=== PATIENT | male | born 1950 | race Caucasian/White ===

== ENCOUNTER 2020-05-07 08:01 | Outpatient (REF) | payer MEDICARE, OTHER, SELFPAY ==
--- NOTE | 2020-05-07 08:05 | CT_ITS ---
EXAMINATION: CT ABDOMEN AND PELVIS WITH CONTRAST CLINICAL INFORMATION: Flank pain. COMPARISON: Ultrasound AAA 04/02/2014 TECHNIQUE: Multidetector volumetric images were obtained from the superior aspect of the liver through the pubic symphysis following administration 85 mL of Omnipaque 350 intravenous contrast. Sagittal and coronal reformatted images were obtained on the technologist's workstation. Oral contrast: No This CT examination was performed using dose optimization techniques as appropriate, variously including the following: *Automated exposure control *Adjustment of mA and/or kV according to patient size (this includes techniques or standardized protocols for targeted exams where dose is matched to indication/reason for exam; i.e. extremities or head) *Use of iterative reconstruction technique DLP: 306 mGy-cm FINDINGS: LUNG BASES: Minimal atelectatic changes are seen in the left lung base. The heart size is normal. LIVER, GALLBLADDER AND BILIARY TREE: The liver is normal in size, shape and attenuation. No focal hepatic lesion or biliary ductal dilatation is present. The gallbladder is unremarkable with no evidence of radiopaque gallstones, gallbladder wall thickening, or obvious pericholecystic inflammatory changes. PANCREAS: Unremarkable. SPLEEN: Unremarkable. ADRENAL GLANDS: Unremarkable. KIDNEYS AND URETERS: Both kidneys are enlarged secondary to bilateral multiple renal cysts likely polycystic renal disease. Heterogenous appearing cortex secondary to cyst. There are punctate radiopaque densities seen in the upper mid and lower pole right kidney likely small calcifications or tiny stones. Few calcifications are seen in the midpole left kidney. BLADDER: Unremarkable. GASTROINTESTINAL TRACT: There is scattered stool, diverticuli and contrast seen throughout the colon without any significant distention. The small bowel loops are normal caliber. There is nonspecific mild mural thickening sigmoid colon. No pericolic fat stranding seen. No free air or free fluid seen. ABDOMINAL WALL: No significant hernia is appreciated. LYMPH NODES: Normal. VASCULAR: Unremarkable. PELVIC VISCERA: The prostate gland is mildly enlarged. The periprostatic fat planes are preserved.. OSSEOUS STRUCTURES: Degenerative disc changes L4-L5 and L1-L2 disc levels with mild ventral spondylosis and vacuum disc phenomena. No lytic process seen. IMPRESSION: Diffuse enlarged kidneys secondary to multiple bilateral renal cysts most likely polycystic disease or medullary cystic disease. Correlate with previous history and imaging if possible. There are punctate calcifications or tiny calculi seen in both kidneys, but no hydronephrosis is noted. Scattered colonic diverticulosis without diverticulitis. Mild prostate enlargement. Minimal left basilar atelectasis.
[2020-05-08] MEDS: iohexoL 350 MG/ML 100 ML INFUS..BTL IV (11:57)
[2020-05-08] MEDS: Barium Sulfate Oral (Vanilla) 450 ML ORAL.SUSP 900 ML PO (12:04)
== END 2020-05-07 08:02 | disposition home or self-care (01) ==
LOC: HO.CT 08:01
PROVIDERS: Visit Provider Internal Medicine Nephrology
DX: I13.11 Hypertensive heart and chronic kidney disease without heart failure, with stage 5 chronic kidney disease, or end stage renal disease (principal); N18.6 End stage renal disease; Z99.2 Dependence on renal dialysis; N25.81 Secondary hyperparathyroidism of renal origin; N28.1 Cyst of kidney, acquired; Z76.82 Awaiting organ transplant status
CPT/HCPCS: 74177

== ENCOUNTER 2022-10-27 16:22 | Emergency (ER) | payer MEDICARE, OTHER, SELFPAY ==
[2022-10-27 16:30] VITALS: BP 85/53; BP 86/52; PULSE 108; PULSE 95; RESP 16; TEMP 36.9; O2SAT 90; O2SAT 92; BMI 21.4
[2022-10-27 16:48] LABS: MANUAL DIFF FLAG NO
[2022-10-27 16:50] LABS: Basophils Percent Auto 0.4 % (0-2); Eosinophils Absolute Auto 0.1 X10*3/uL (0.0-0.4); Eosinophils Percent Auto 1.6 % (0-4); Hematocrit 26.4 % (42.0-52.0); Hemoglobin 8.7 g/dl (14.0-18.0); Imm Gran Abs Auto 0.02 X10*3/uL (0.00-0.03); Imm Gran Pct Auto 0.3 % (0.0-0.4); Lymphocytes Absolute Auto 0.6 X10*3/uL (1.2-4.9); Lymphocytes Percent Auto 8.7 % (20-40); Mean Corpuscular Hemoglobin 32.1 pg (27.0-33.0); Mean Corpuscular Volume 97.4 fL (80.0-98.0); Monocytes Absolute Auto 0.7 X10*3/uL (0.1-1.2); Monocytes Percent Auto 9.7 % (2-11); Neutrophils Absolute Auto 5.4 x10*3/uL (2.0-8.3); Neutrophils Percent Auto 79.3 % (45-73); Platelet Count 164 X10*3/uL (160-400); Red Blood Count 2.71 X10*6/uL (4.60-5.80); Red Cell Distribution Width 13.4 % (11.0-16.0); White Blood Count 6.8 X10*3/uL (4.8-10.8)
[2022-10-27 17:10] LABS: Troponin-I High Sensitivity 47.8 ng/L (<3.5-35.0)
[2022-10-27 17:19] LABS: Alanine Aminotransferase 21 U/L (0-40); Albumin Level 3.5 g/dL (3.5-5.0); Alkaline Phosphatase 60 U/L (39-117); Anion Gap 17 (12-20); Aspartate Amino Transferase 12 U/L (5-37); Bilirubin Total 0.5 mg/dL (0.0-1.0); Blood Urea Nitrogen 24 mg/dL (9-16); Carbon Dioxide 31 mmol/L (22-29); Chloride 95 mmol/L (96-108); Creatinine Clr Calc Pharmacy 14.1; Estimated Glomerular Filt Rate 13; Glucose Random 181 mg/dL (60-115); Potassium 3.9 mmol/L (3.3-5.1); Sodium 139 mmol/L (135-145); Total Protein 5.5 g/dL (6.5-8.0)
[2022-10-27] MEDS: 0.9 % Sodium Chloride 500 ML 999 ML IVCONT ×3 (17:29→21:38)
--- NOTE | 2022-10-27 17:35 | PC.NURSE ---
CRITICAL CREATININE 4.47. PRIMARY RN AWARE. RESULTS DOCUMENTED.
[2022-10-27 18:48] VITALS: BP 109/59; PULSE 81; RESP 16; O2SAT 98
--- NOTE | 2022-10-27 18:51 | PC.NURSE ---
Second 500ml of ns infusing. Pt continues to deny any symptoms or pain, requesting to leave d/t transportation by 1930.
[2022-10-27 19:45] VITALS: BP 91/47; PULSE 74; RESP 12; TEMP 36.3; O2SAT 97
[2022-10-27 21:30] VITALS: BP 90/51; PULSE 71; RESP 19; TEMP 36.9; O2SAT 97
--- NOTE | 2022-10-27 21:55 | ED.GENADULT ---
HPI - General Adult General Chief complaint: General Medical Stated complaint: hypotension Time Seen by Provider: 10/27/22 16:37 Source: patient Mode of arrival: EMS Limitations: no limitations History of Present Illness HPI narrative: Patient comes to the emergency room from home after completing his normal session of dialysis. Patient states that when he got home, he checked his blood pressure as he usually does. Patient states that he has no symptoms, but it was noted that his blood pressure was in the low 80s. Patient denies chest pain or shortness of breath, no dizziness. Patient's family encouraged him to come to the emergency room to be evaluated. Related Data Allergies Allergy/AdvReac Type Severity Reaction Status Date / Time bupropion [From WELLBUTRIN] AdvReac Unknown CONSTIPATIO Unverified 04/03/20 17:03 N NSAIDS (Non-Steroidal AdvReac Unknown RENAL Unverified 04/03/20 17:03 Anti-Inflamma [NSAIDS (NON-STEROIDAL ANTI-INFLAMMA] Groemdb-[id number] Reductase AdvReac Unknown UNK Unverified 04/03/20 17:03 Inhibitor [ROTTOSL-TFZ-USA REDUCTASE INHIBITOR] Review of Systems Review of Systems: Constitutional : No Weight loss, No Fever, No Chills, No Night Sweats, No Fatigue, No Malaise ENT/Mouth : No Hearing loss, No Ear Pain, No Nasal Congestion, No Sinus Pain, No Hoarseness, No sore throat, No Rhinorrhea, No Swallowing Difficulty Eyes: No Eye Pain, No Swelling, No Redness, No Foreign Body, No Discharge, No Vision Changes Cardiovascular : No Chest Pain, No SOB, No Dyspnea on Exertion, No Orthopnea, No Edema, No Palpitations Respiratory : No Cough, No Sputum, No Wheezing, No Smoke Exposure, No Dyspnea Gastrointestinal : No Nausea, No Vomiting, No Diarrhea, No Constipation, No abdominal Pain, No Hematochezia, No Melena Genitourinary : no irregular bleeding, No Dysuria, No Urinary Frequency, No Hematuria, No Urinary Incontinence, No Urgency, No Flank Pain, No Urinary Flow Changes, No Hesitancy Musculoskeletal : No joint pain, No Myalgias, No Joint Swelling Skin : No Skin Lesions, No rash Neuro : No Weakness, No Numbness, No Paresthesias, No Loss of Consciousness, No Dizziness, No Headache Psych : No Anxiety/Panic, No Depression, No SI/HI/AH/VH, No Social Issues, Heme/Lymph: No Bruising, No Bleeding,No Lymphadenopathy Endocrine : No Polyuria, No Polydipsia, No Temperature Intolerance ON LICENSE OF [facility] Past Medical History Medical History (Updated 10/27/22 @ 22:07 by Maribeth Varela MD) Chronic kidney 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 Social History Social History Advance Directives: No Advance Directives Information Provided: No Physical Exam ED Vital Signs: Vital Signs - 24 hr 10/27/22 16:30 10/27/22 18:48 10/27/22 19:45 Temperature 98.4 F 97.3 F Pulse Rate 95 81 74 Respiratory Rate 16 16 12 Blood Pressure 85/53 L 109/59 L 91/47 L Pulse Oximetry 92 98 97 Oxygen Delivery Method Room Air Room Air Room Air 10/27/22 21:30 Temperature 98.5 F Pulse Rate 71 Respiratory Rate 19 Blood Pressure 90/51 L Pulse Oximetry 97 Oxygen Delivery Method Room Air BMI result Body Mass Index 21.4 Const Other: Appearance: Alert. Oriented X3. No acute distress. Eyes: Pupils equal, round and reactive to light. ENT: Pharynx normal. Neck: Normal inspection. Neck supple. No lymph nodes noted. No crepitus CVS: Normal heart rate and rhythm. Pulses normal. Normal S1 and S2 Respiratory: No respiratory distress. Breath sounds normal. No Wheezing. No rales Abdomen: Soft and nontender. No rigidity. No distention. Skin: Skin warm and dry. Normal skin color. Normal skin turgor. Extremities: No lower extremity edema. No Lacerations. No Rash, on left arm there is dialysis fistula Neuro: Oriented X 3. No motor deficit. No sensory deficit. Moving all extremities. No slurred speech. CN 2 through 12 grossly intact Psych: calm, cooperative, normal affect Course Course Course Narrative: -Dr. Camacho did a bedside ultrasound on the patient, the inferior vena cava is completely collapsed. Patient's hypotension secondary to dialysis, too much fluid was taken out. Patient being rehydrated with boluses of 500 mL -after 3 boluses of normal saline, patient states that he feels completely asymptomatic -patient instructed to resume his dialysis plan as previously scheduled. Medications Administered Discontinued Medications Generic Name Dose Route Start Last Admin Trade Name Freq PRN Reason Stop Dose Admin Sodium Chloride 500 mls @ 999 mls/hr 10/27/22 17:02 10/27/22 18:50 Ns IVCONT 10/27/22 17:32 Infused .Q31M ONE Infusion Sodium Chloride 500 mls @ 999 mls/hr 10/27/22 18:29 10/27/22 19:40 Ns IVCONT 10/27/22 18:59 Infused .Q31M ONE Infusion Sodium Chloride 500 mls @ 999 mls/hr 10/27/22 19:56 10/27/22 21:38 Ns IVCONT 10/27/22 20:26 999 mls/hr .Q31M ONE Administration Medical Decision Making Medical Decision Making MDM Narrative: -hypertension secondary to large amount of fluid taking out during dialysis. Patient was rehydrated slowly. Patient asymptomatic Lab Data 10/27/22 16:40 10/27/22 16:40 Labs: Lab Results 10/27/22 10/27/22 10/27/22 Range/Units 16:40 16:40 16:40 WBC 6.8 (4.8-10.8) X10*3/uL RBC 2.71 L (4.60-5.80) X10*6/uL Hgb 8.7 L (14.0-18.0) g/dl Hct 26.4 L (42.0-52.0) % MCV 97.4 (80.0-98.0) fL MCH 32.1 (27.0-33.0) pg MCHC 33.0 (31.0-36.0) g/dl RDW 13.4 (11.0-16.0) % Plt Count 164 (160-400) X10*3/uL MPV 9.0 L (9.4-12.4) fL Immature Gran % (Auto) 0.3 (0.0-0.4) % Neut % (Auto) 79.3 H (45-73) % Lymph % (Auto) 8.7 L (20-40) % [place] % (Auto) 9.7 (2-11) % Eos % (Auto) 1.6 (0-4) % Baso % (Auto) 0.4 (0-2) % Lymph # (Auto) 0.6 L (1.2-4.9) X10*3/uL [place] # (Auto) 0.7 (0.1-1.2) X10*3/uL Eos # (Auto) 0.1 (0.0-0.4) X10*3/uL Baso # (Auto) 0.0 (0.0-0.2) X10*3/uL Abs Immat Gran (auto) 0.02 (0.00-0.03) X10*3/uL Absolute Neuts (auto) 5.4 (2.0-8.3) x10*3/uL Absolute Nucleated RBC 0.000 (0.0-0.012) X10*3/uL Nucleated RBC % (auto) 0.0 (0.0-0.2) /100WBC Sodium 139 (135-145) mmol/L Potassium 3.9 (3.3-5.1) mmol/L Chloride 95 L (96-108) mmol/L Carbon Dioxide 31 H (22-29) mmol/L Anion Gap 17 (12-20) BUN 24 H (9-16) mg/dL Creatinine 4.47 H* (0.5-1.4) mg/dL Estim Creat Clear Calc 14.1 Estimated GFR 13 Random Glucose 181 H (60-115) mg/dL Calcium 9.0 (8.4-10.2) mg/dL Total Bilirubin 0.5 (0.0-1.0) mg/dL AST 12 (5-37) U/L ALT 21 (0-40) U/L Alkaline Phosphatase 60 (39-117) U/L Troponin I High Sens 47.8 H (<3.5-35.0) ng/L Total Protein 5.5 L (6.5-8.0) g/dL Albumin 3.5 (3.5-5.0) g/dL Discharge Plan Discharge Clinical Impression: Acute hypotension Patient Disposition: Home, Self-Care Instructions: Hypotension (ED) Additional Instructions: Please follow-up with your primary care physician tomorrow. If you have any worsening or new symptoms, please return to the emergency room or call 911
[2022-10-27 22:01] VITALS: BP 105/55; PULSE 71
[2022-10-27 22:20] VITALS: BP 112/62; PULSE 75; RESP 14; O2SAT 96
== END 2022-10-27 22:22 | disposition home or self-care (01) ==
PROVIDERS: Emergency Provider Emergency Medicine
DX: I95.3 Hypotension of hemodialysis (principal); N18.6 End stage renal disease; Z99.2 Dependence on renal dialysis
CPT/HCPCS: 36415; 80053; 84484; 85025; 96360; 96361; 99284

== ENCOUNTER 2023-02-06 07:03 | Emergency (ER) | payer MEDICARE, OTHER, SELFPAY ==
[2023-02-06] VITALS (8 sets, daily range): BP systolic 129–150; BP diastolic 59–90; PULSE 65–72; RESP 12–24; TEMP 36.9–37.4; O2SAT 84–98; BMI 22.7
--- NOTE | ~2023-02-06 | CT_ITS ---
EXAMINATION: CT ANGIOGRAM CHEST CLINICAL INFORMATION: Severe chest pain COMPARISON: Previous chest x-ray from earlier the same day TECHNIQUE: Multiple axial images were obtained through the chest after the administration of 85 mL of Omnipaque 350 intravenous contrast. Extensive vascular post-processing including two-dimensional and three-dimensional reformatted images were created and reviewed on an independent workstation. This CT examination was performed using dose optimization techniques as appropriate, variously including the following: *Automated exposure control *Adjustment of mA and/or kV according to patient size (this includes techniques or standardized protocols for targeted exams where dose is matched to indication/reason for exam; i.e. extremities or head) *Use of iterative reconstruction technique DLP: 499 mGy-cm FINDINGS: Upper normal in size. No aneurysm or dissection. The ascending thoracic aorta measures 4 x 4.2 cm, aortic arch 2.8 cm and descending thoracic aorta 3 cm. No mediastinal hematoma. The heart is enlarged. There is a small pericardial effusion. Mild coronary artery calcification. The pulmonary arteries are enlarged. The main pulmonary artery measures 4.9 cm. Appearance is suggestive of pulmonary artery hypertension. Pulmonary embolism is seen. Great vessel origins are patent. Normal variant, bovine arch. The visualized thyroid gland is normal. No hilar or mediastinal lymphadenopathy. There is dependent atelectasis seen in both lower lobes at the lung bases. The lungs are otherwise clear. There is a very small left pleural effusion. There is no right pleural effusion. No chest wall mass or enlarged axillary lymph nodes. Degenerative changes of the spine and mild scoliosis. CT/CT angio chest aorta IMPRESSION: Upper normal-size thoracic aorta. No aneurysm or dissection. Enlarged pulmonary arteries suggestive of pulmonary artery hypertension. No pulmonary embolism is seen. Enlarged heart and small pericardial effusion. Fleischner guidelines were followed. Severe chest pain
--- NOTE | ~2023-02-06 | XR_ITS ---
EXAMINATION: XR CHEST CLINICAL INFORMATION: Chest pain COMPARISON: None available. TECHNIQUE: Frontal view of the chest was obtained. FINDINGS: No significant abnormality is noted involving the heart, lungs, mediastinum, bony thorax or soft tissues. Surgical clips in the left upper arm/axilla. XR/XR chest 1V IMPRESSION: No evidence for acute disease in the chest.
--- NOTE | ~2023-02-06 | CT_ITS ---
EXAMINATION: CT ANGIOGRAM ABDOMEN AND PELVIS CLINICAL INFORMATION: Pain COMPARISON: Previous CT of the abdomen and pelvis April 2020 TECHNIQUE: Multiple axial images were obtained through the abdomen and pelvis following the administration of 85 mL of Omnipaque 350 intravenous contrast. Images were reviewed on a dedicated 3-D workstation. This CT examination was performed using dose optimization techniques as appropriate, variously including the following: *Automated exposure control *Adjustment of mA and/or kV according to patient size (this includes techniques or standardized protocols for targeted exams where dose is matched to indication/reason for exam; i.e. extremities or head) *Use of iterative reconstruction technique DLP: 499 mGy-cm FINDINGS: There is evidence of atherosclerotic disease. The abdominal aorta is normal in caliber. No aneurysm or dissection. The common, internal and external iliac and common femoral arteries are patent. Both femoral bifurcations are patent. No retroperitoneal hematoma. The celiac axis, SMA and ROSAURA are patent. Both renal arteries appear small. There is is significant plaque/stenosis of the proximal right renal artery. There is a mild focal stenosis at the origin of the left renal artery. The liver is normal. The gallbladder is upper normal in size. No gallstones are seen by CT. There is no intrahepatic biliary duct dilatation. The common bile duct is dilated measuring 1 cm down to the head of the pancreas. The main pancreatic duct is dilated measuring up to 5 to 6 mm in the head of the pancreas. The pancreas is otherwise normal. The spleen is normal. The adrenal glands are normal. Both kidneys appear essentially replaced with cysts. Polycystic kidney disease should be considered. No hydronephrosis. Small bilateral nonobstructing renal stones. The bladder is normal. The prostate gland does not appear enlarged. Small left inguinal hernia containing colon. No evidence of obstruction. Small and large bowel is otherwise normal. The appendix is normal. The stomach is not distended and difficult to evaluate. No ascites or free air. Diverticulosis and mild constipation. No adenopathy. Degenerative changes of the spine and scoliosis. CT/CT angio abdomen pelvis IMPRESSION: No evidence of aneurysm, dissection or retroperitoneal hematoma. Bilateral renal artery stenosis. Probable polycystic kidney disease. Small bilateral renal stones. Constipation and diverticulosis. Small left inguinal hernia containing fat and colon. No evidence of obstruction. Mild dilatation of the common bile duct and main pancreatic duct. This is new or increased from 2019 exam. Follow-up MR with MRCP should be considered to exclude ampullary lesion. Upper normal-size gallbladder. No stone seen by CT. Fleischner guidelines were followed.
--- NOTE | 2023-02-06 07:06 | ECG_ITS ---
Test Reason : CHEST PAIN Blood Pressure : / mmHG Vent. Rate : 067 BPM Atrial Rate : 067 BPM P-R Int : 210 ms QRS Dur : 088 ms QT Int : 434 ms P-R-T Axes : 047 -06 073 degrees QTc Int : 458 ms Sinus rhythm with 1st degree A-V block Minimal voltage criteria for LVH, may be normal variant ( Sokolow-Dominique ) Nonspecific T wave abnormality Abnormal ECG No previous ECGs available Referred By: Gary De La Torre Electronically Signed By:Antony Lee
[2023-02-06 07:27] LABS: Basophils Absolute Auto 0.1 X10*3/uL (0.0-0.2); Basophils Percent Auto 0.5 % (0-2); Eosinophils Percent Auto 0.3 % (0-4); Hematocrit 35.9 % (42.0-52.0); Hemoglobin 12.3 g/dl (14.0-18.0); Imm Gran Abs Auto 0.04 X10*3/uL (0.00-0.03); Imm Gran Pct Auto 0.3 % (0.0-0.4); Lymphocytes Absolute Auto 0.6 X10*3/uL (1.2-4.9); MANUAL DIFF FLAG NO; Mean Corpuscular HGB Conc 34.3 g/dl (31.0-36.0); Mean Corpuscular Hemoglobin 32.2 pg (27.0-33.0); Mean Platelet Volume 9.1 fL (9.4-12.4); Monocytes Absolute Auto 0.8 X10*3/uL (0.1-1.2); Monocytes Percent Auto 6.7 % (2-11); Neutrophils Absolute Auto 10.3 x10*3/uL (2.0-8.3); Neutrophils Percent Auto 87.2 % (45-73); Platelet Count 263 X10*3/uL (160-400); Red Blood Count 3.82 X10*6/uL (4.60-5.80); Red Cell Distribution Width 12.4 % (11.0-16.0); White Blood Count 11.8 X10*3/uL (4.8-10.8)
--- NOTE | 2023-02-06 07:29 | ED.CHESTPAIN ---
HPI - Chest Pain General Chief Complaint: Chest Pain Stated Complaint: Chest Pain Time Seen by Provider: 02/06/23 07:05 Source: patient and EMS Mode of arrival: EMS Limitations: no limitations History of Present Illness HPI narrative: This is a 72-year-old male history of CKD currently on dialysis (M,W,F) presenting to the emergency department for evaluation of substernal nonradiating chest pain with associated shortness of breath chest pain and shortness of breath started suddenly at approximately 01:00, he tells me it awoke him from his sleep. He has been feeling restless, uncomfortable ever since. Shortness of breath is worse with exertion and better at rest chest pain unchanged with rest. Patient denies fevers, chills, nausea, vomiting, abdominal pain, headache, vision changes, dizziness, weakness. Related Data Allergies Allergy/AdvReac Type Severity Reaction Status Date / Time bupropion [From WELLBUTRIN] AdvReac Unknown CONSTIPATIO Verified 02/06/23 07:18 N NSAIDS (Non-Steroidal AdvReac Unknown RENAL Verified 02/06/23 07:18 Anti-Inflamma [NSAIDS (NON-STEROIDAL ANTI-INFLAMMA] Ztibpad-QZZ-TjN Reductase AdvReac Unknown UNK Verified 02/06/23 07:18 Inhibitor [ODDTAQW-FYH-AUJ REDUCTASE INHIBITOR] Review of Systems Review of Systems: Constitutional : No Weight loss, No Fever, No Chills, No Fatigue, No Malaise ENT/Mouth : No sore throat, No Rhinorrhea Eyes: No Eye Pain, No Swelling, No Redness Cardiovascular : + Chest Pain, + SOB, No Dyspnea on Exertion, No Orthopnea, No Edema, No Palpitations Respiratory : No Cough, No Sputum, No Wheezing Gastrointestinal : No Nausea, No Vomiting, No Diarrhea, No Constipation, No abdominal Pain, No Hematochezia, No Melena Genitourinary : No Dysuria, No Urinary Frequency, No Hematuria, Musculoskeletal : No joint pain, No Myalgias, No Joint Swelling Skin : No Skin Lesions, No rash Neuro : No Weakness, No Numbness, No Dizziness, No Headache Psych : No Anxiety/Panic, No Depression All other systems reviewed and are negative Yes all other systems are reviewed and are negative PMFSH Past Medical History Attestation statement: The following information was validated with the patient. Source: old records reviewed and nursing notes reviewed Medical History Chronic kidney 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 Social History Social History Alcohol intake: never Smoked in Last 30 Days: Yes Use of substances other than those prescribed or required for medical reasons: No Advance Directives: Yes Advance Directives Information Provided: Yes Advance Directives on File: No Physical Exam Vital Signs: Vital Signs: Last Vital Signs Temp 98.6 F 02/06/23 15:52 Pulse 71 02/06/23 15:52 Resp 12 02/06/23 15:52 BP 138/68 02/06/23 15:52 Pulse Ox 95 02/06/23 15:52 O2 Del Method Room Air 02/06/23 15:52 BMI result Body Mass Index 22.7 vss Appearance: Alert.? Oriented X3.? No acute distress.? Head: Normocephalic, atraumatic, no step-offs or deformities Eyes: Pupils equal, round and reactive to light.? CVS: Normal heart rate and rhythm.? Pulses normal.? Respiratory: No respiratory distress.? Breath sounds normal.? Abdomen: Soft and nontender.? Skin: Skin warm and dry.? Normal skin color.? Normal skin turgor.? Extremities: No lower extremity edema.? No calf ttp. 5/5 strength to bilateral upper and lower extremities + Left UE fistula Neuro: Oriented X 3.? No motor deficit.? No sensory deficit. CN 2-12 intact Course Reevaluation(s) Reevaluation #1: CBC with slight leukocytosis 11.8, unlikely that this is infectious in origin, patient noted to have a normocytic anemia which is patient's baseline however appears to be slightly more concentrated than usual. Chemistry revealing an elevated anion gap of 21 question dehydration, BUN of 38, creatinine 6.34, patient with history of CKD and on dialysis, this is patient's baseline not in acute finding. Patient's BNP 323, no previous to compare with. Patient's troponin 22.3, EKG nonischemic but revealing a first-degree AV block which patient does not have a history of. Will repeat 2nd troponin, initial troponin could be slightly high secondary to CKD, unlikely that this is ACS. D-Dimer 234, age adjusted dimer VTE unlikely, no need for CTA. Time: 08:31 Reevaluation #2: Chest pain unrelieved by morphine nitro ordered. Time: 09:15 Reevaluation #3: Patient refusing aspirin. Ordered Maalox as patient now is pointing at his epigastric region. Time: 09:48 Additional Reevaluation(s): Patient's 2nd troponin flat, nonischemic EKG. Due to onset of patient's symptoms will obtain a 3rd cardiac enzyme at approximately 12:30. BNP elevated however no evidence of acute fluid overload on x-ray or on exam. Continues to complain of chest pain more morphine ordered. Did discuss this case in depth with my attending who recommends CTA chest, abdomen pelvis due to patient's not improving symptoms, history and physical exam do not appear as though this is a dissection however will obtain dissection study. Ordering Dilaudid for pain control and patient is still in 9/10 pain. 1558 Patient still complaining of pain, there is an order in for Dilaudid. Will wait to see if this improves patient's symptoms. CTA pending. Sign-out will be given to Jillian LIRA 1653: Patient's CTA was negative. Patient continues to be in pain. Will admit for intractable pain. 1703: Attempted to admit the patient however when the hospitalist came to speak with the patient, he stated that he no longer wants to stay and wants to be discharged. Patient cleared for discharge. Medications Administered Discontinued Medications Generic Name Dose Route Start Last Admin Trade Name Freq PRN Reason Stop Dose Admin Al Hydroxide/Mg Hydroxide 30 ml 02/06/23 09:44 02/06/23 09:49 Magnesium Hydrox/Alum Hydrox 30 Ml Oral.Susp PO 02/06/23 09:45 30 ml ONCE ONE Administration Aspirin 324 mg 02/06/23 09:36 02/06/23 09:50 Aspirin 81 Mg Tab.Chew PO 02/06/23 09:37 Not Given ONCE ONE Hydromorphone HCl 0.5 mg 02/06/23 12:20 02/06/23 12:38 Hydromorphone Hcl 0.5 Mg/0.5 Ml Syringe IVPUSH 02/06/23 12:21 0.5 mg ONCE ONE Administration Protocol Iohexol 100 ml 02/06/23 15:08 02/06/23 15:08 Iohexol 350 Mg/Ml 100 Ml Infus..Btl IV 02/06/23 15:09 85 ml ONCE ONE Administration Morphine Sulfate 4 mg 02/06/23 07:29 02/06/23 07:55 Morphine Sulfate 4 Mg/Ml Cartridge IVPUSH 02/06/23 07:30 4 mg ONCE ONE Administration Protocol Nitroglycerin 0.5 inch 02/06/23 08:54 02/06/23 09:09 Nitroglycerin 2 % Oint 1 Gm Packet TRANSDERMA 02/06/23 08:55 0.5 inch ONCE ONE Administration Medical Decision Making Medical Decision Making [facility] Narrative: 0730 72-year-old male presents with sudden-onset chest pain, shortness of breath started at 01:00, present ever since. Physical exam benign. Concerns for possible ACS, PE will rule out dysrhythmia. Unlikely dissection endocarditis, myocarditis. No signs of pneumonia at this time. Plan labs, imaging, pain control. Differential Diagnosis Differential Diagnoses: The differential diagnosis associated with the presentation includes Concerns for possible ACS, PE will rule out dysrhythmia. Unlikely dissection endocarditis, myocarditis. No signs of pneumonia at this time. Admission/Observation Consideration of admission/observation: Escalation of care including admission/observation considered Possible Consult Healthcare Provider Management of the patient was discussed with: Hospitalist Lab Data [facility] Lab Attestation statement: I reviewed the patient's lab results. 02/06/23 07:22 02/06/23 07:22 Labs: Lab Results 02/06/23 02/06/23 02/06/23 Range/Units 07:22 07:22 07:22 WBC 11.8 H (4.8-10.8) X10*3/uL RBC 3.82 L D (4.60-5.80) X10*6/uL Hgb 12.3 L D (14.0-18.0) g/dl Hct 35.9 L D (42.0-52.0) % MCV 94.0 (80.0-98.0) fL MCH 32.2 (27.0-33.0) pg MCHC 34.3 (31.0-36.0) g/dl RDW 12.4 (11.0-16.0) % Plt Count 263 D (160-400) X10*3/uL MPV 9.1 L (9.4-12.4) fL Immature Gran % (Auto) 0.3 (0.0-0.4) % Neut % (Auto) 87.2 H (45-73) % Lymph % (Auto) 5.0 L (20-40) % [place] % (Auto) 6.7 (2-11) % Eos % (Auto) 0.3 (0-4) % Baso % (Auto) 0.5 (0-2) % Lymph # (Auto) 0.6 L (1.2-4.9) X10*3/uL [place] # (Auto) 0.8 (0.1-1.2) X10*3/uL Eos # (Auto) 0.0 (0.0-0.4) X10*3/uL Baso # (Auto) 0.1 (0.0-0.2) X10*3/uL Abs Immat Gran (auto) 0.04 H (0.00-0.03) X10*3/uL Absolute Neuts (auto) 10.3 H (2.0-8.3) x10*3/uL Absolute Nucleated RBC 0.000 (0.0-0.012) X10*3/uL Nucleated RBC % (auto) 0.0 (0.0-0.2) /100WBC D-Dimer High Sensitivty NG/ML Sodium 135 (135-145) mmol/L Potassium 4.5 (3.3-5.1) mmol/L Chloride 89 L (96-108) mmol/L Carbon Dioxide 30 H (22-29) mmol/L Anion Gap 21 H (12-20) BUN 38 H (9-16) mg/dL Creatinine 6.34 H* (0.5-1.4) mg/dL Estim Creat Clear Calc 10.8 Estimated GFR 9 Random Glucose 107 (60-115) mg/dL Lactic Acid (0.5-2.0) mmol/L Calcium 9.5 (8.4-10.2) mg/dL Magnesium 2.5 (1.6-2.6) mg/dL Total Bilirubin 0.4 (0.0-1.0) mg/dL AST 17 (5-37) U/L ALT 23 (0-40) U/L Alkaline Phosphatase 75 (39-117) U/L Troponin I High Sens 22.3 D (<3.5-35.0) ng/L B-Natriuretic Peptide (<100) pg/mL Total Protein 7.0 (6.5-8.0) g/dL Albumin 4.2 (3.5-5.0) g/dL Lipase 59 (8-78) U/L 02/06/23 02/06/23 02/06/23 Range/Units 07:22 07:47 09:05 WBC (4.8-10.8) X10*3/uL RBC (4.60-5.80) X10*6/uL Hgb (14.0-18.0) g/dl Hct (42.0-52.0) % MCV (80.0-98.0) fL MCH (27.0-33.0) pg MCHC (31.0-36.0) g/dl RDW (11.0-16.0) % Plt Count (160-400) X10*3/uL MPV (9.4-12.4) fL Immature Gran % (Auto) (0.0-0.4) % Neut % (Auto) (45-73) % Lymph % (Auto) (20-40) % [place] % (Auto) (2-11) % Eos % (Auto) (0-4) % Baso % (Auto) (0-2) % Lymph # (Auto) (1.2-4.9) X10*3/uL [place] # (Auto) (0.1-1.2) X10*3/uL Eos # (Auto) (0.0-0.4) X10*3/uL Baso # (Auto) (0.0-0.2) X10*3/uL Abs Immat Gran (auto) (0.00-0.03) X10*3/uL Absolute Neuts (auto) (2.0-8.3) x10*3/uL Absolute Nucleated RBC (0.0-0.012) X10*3/uL Nucleated RBC % (auto) (0.0-0.2) /100WBC D-Dimer High Sensitivty 234 NG/ML Sodium (135-145) mmol/L Potassium (3.3-5.1) mmol/L Chloride (96-108) mmol/L Carbon Dioxide (22-29) mmol/L Anion Gap (12-20) BUN (9-16) mg/dL Creatinine (0.5-1.4) mg/dL Estim Creat Clear Calc Estimated GFR Random Glucose (60-115) mg/dL Lactic Acid 0.9 (0.5-2.0) mmol/L Calcium (8.4-10.2) mg/dL Magnesium (1.6-2.6) mg/dL Total Bilirubin (0.0-1.0) mg/dL AST (5-37) U/L ALT (0-40) U/L Alkaline Phosphatase (39-117) U/L Troponin I High Sens (<3.5-35.0) ng/L B-Natriuretic Peptide 322 H (<100) pg/mL Total Protein (6.5-8.0) g/dL Albumin (3.5-5.0) g/dL Lipase (8-78) U/L 02/06/23 02/06/23 Range/Units 10:31 13:16 WBC (4.8-10.8) X10*3/uL RBC (4.60-5.80) X10*6/uL Hgb (14.0-18.0) g/dl Hct (42.0-52.0) % MCV (80.0-98.0) fL MCH (27.0-33.0) pg MCHC (31.0-36.0) g/dl RDW (11.0-16.0) % Plt Count (160-400) X10*3/uL MPV (9.4-12.4) fL Immature Gran % (Auto) (0.0-0.4) % Neut % (Auto) (45-73) % Lymph % (Auto) (20-40) % [place] % (Auto) (2-11) % Eos % (Auto) (0-4) % Baso % (Auto) (0-2) % Lymph # (Auto) (1.2-4.9) X10*3/uL [place] # (Auto) (0.1-1.2) X10*3/uL Eos # (Auto) (0.0-0.4) X10*3/uL Baso # (Auto) (0.0-0.2) X10*3/uL Abs Immat Gran (auto) (0.00-0.03) X10*3/uL Absolute Neuts (auto) (2.0-8.3) x10*3/uL Absolute Nucleated RBC (0.0-0.012) X10*3/uL Nucleated RBC % (auto) (0.0-0.2) /100WBC D-Dimer High Sensitivty NG/ML Sodium (135-145) mmol/L Potassium (3.3-5.1) mmol/L Chloride (96-108) mmol/L Carbon Dioxide (22-29) mmol/L Anion Gap (12-20) BUN (9-16) mg/dL Creatinine (0.5-1.4) mg/dL Estim Creat Clear Calc Estimated GFR Random Glucose (60-115) mg/dL Lactic Acid (0.5-2.0) mmol/L Calcium (8.4-10.2) mg/dL Magnesium (1.6-2.6) mg/dL Total Bilirubin (0.0-1.0) mg/dL AST (5-37) U/L ALT (0-40) U/L Alkaline Phosphatase (39-117) U/L Troponin I High Sens 21.9 22.3 (<3.5-35.0) ng/L B-Natriuretic Peptide (<100) pg/mL Total Protein (6.5-8.0) g/dL Albumin (3.5-5.0) g/dL Lipase (8-78) U/L Independent Interpretation I performed an independent interpretation of an: EKG (Ventricular rate of 67, VT prolongued, QRS normal, QT/QTC normal. EKG with first-degree AV block, and LVH. No ST elevations or inversions concerning for ischemia) and Plain X-Ray (XR/XR chest 1V IMPRESSION: No evidence for acute disease in the chest. ) Radiology Impression Discussion of test interpretation with radiology: I have reviewed the radiologist's reading. External Record Review External record reviewed: Inpatient record and Outpatient record Chronic Conditions Patient?s care impacted by: Other (CKD) Core Measures AMI core measures followed: Yes Measure exclusions: not indicated Critical Care Time Critical Care Time Critical Care Time: No Discharge Plan Discharge Clinical Impression: Chest pain, CKD (chronic kidney disease) Instructions: Chest Pain (ED) Additional Instructions: Take your medications as prescribed. If you were prescribed antibiotics today, it is important that you take your medication to their entirety, do not skip any doses, do not finish them early. Follow-up with your primary care provider this week. Return to the emergency department with new or worsening symptoms. Such as fevers, chills, chest pain, shortness of breath, nausea, vomiting, dizziness, headache, vision changes, lethargy In case of emergency call 911 Follow-up with cardiology. Referrals: [facility] [place] Cardiovascular Services [Provider Group] - 2 days Gerald Davis MD [Primary Care Provider] - 2 days
[2023-02-06 07:47] LABS: Alanine Aminotransferase 23 U/L (0-40); Albumin Level 4.2 g/dL (3.5-5.0); Alkaline Phosphatase 75 U/L (39-117); Anion Gap 21 (12-20); Aspartate Amino Transferase 17 U/L (5-37); Bilirubin Total 0.4 mg/dL (0.0-1.0); Blood Urea Nitrogen 38 mg/dL (9-16); Calcium 9.5 mg/dL (8.4-10.2); Carbon Dioxide 30 mmol/L (22-29); Chloride 89 mmol/L (96-108); Creatinine Clr Calc Pharmacy 10.8; Estimated Glomerular Filt Rate 9; Glucose Random 107 mg/dL (60-115); Magnesium 2.5 mg/dL (1.6-2.6); Potassium 4.5 mmol/L (3.3-5.1); Sodium 135 mmol/L (135-145)
[2023-02-06 07:51] LABS: Troponin-I High Sensitivity 22.3 ng/L (<3.5-35.0)
[2023-02-06 07:52] LABS: B Type Natriuretic Peptide 322 pg/mL (<100)
[2023-02-06] MEDS: Morphine Sulfate 4 MG/ML CARTRIDGE IVPUSH (07:55)
[2023-02-06 07:58] LABS: D Dimer High Sensitivity 234 NG/ML
[2023-02-06] MEDS: Nitroglycerin 2 % Oint 1 GM Packet 0.5 INCH TRANSDERMA (09:09)
[2023-02-06 09:22] LABS: Lactic Acid 0.9 mmol/L (0.5-2.0)
--- NOTE | 2023-02-06 09:33 | ECG_ITS ---
Test Reason : CHEST PAIN Blood Pressure : / mmHG Vent. Rate : 061 BPM Atrial Rate : 061 BPM P-R Int : 214 ms QRS Dur : 094 ms QT Int : 440 ms P-R-T Axes : 049 -10 071 degrees QTc Int : 442 ms Sinus rhythm with 1st degree A-V block Nonspecific T wave abnormality Abnormal ECG When compared with ECG of 06-FEB-2023 07:14, No significant change was found Referred By: Gary De La Torre Electronically Signed By:KEITH VILLALOBOS MD
[2023-02-06] MEDS: Magnesium Hydrox/Alum Hydrox 30 ML ORAL.SUSP PO (09:49)
[2023-02-06 10:26] LABS: Lipase 59 U/L (8-78)
[2023-02-06 10:57] LABS: Troponin-I High Sensitivity 21.9 ng/L (<3.5-35.0)
[2023-02-06] MEDS: HYDROmorphone HCl 0.5 MG/0.5 ML SYRINGE IVPUSH (12:38)
[2023-02-06 13:43] LABS: Troponin-I High Sensitivity 22.3 ng/L (<3.5-35.0)
[2023-02-06] MEDS: iohexoL 350 MG/ML 100 ML INFUS..BTL IV (15:08)
== END 2023-02-06 17:25 | disposition home or self-care (01) ==
PROVIDERS: Physician Assistant; Emergency Provider Emergency Medicine Emergency Medical Services; PCP Family Medicine
DX: R07.9 Chest pain, unspecified (principal); R10.13 Epigastric pain; R06.02 Shortness of breath; N18.6 End stage renal disease; Z99.2 Dependence on renal dialysis
CPT/HCPCS: 36415; 71045; 71275; 74174; 80053; 83605; 83690; 83735; 83880; 84484; 85025; 85379; 87040; 93005; 96374; 96375; 99284; 99285; J1170; J2270; Q9967

== ENCOUNTER → 2023-02-06 07:06 | Outpatient (BNV) | payer MEDICARE, OTHER, SELFPAY | PROVIDERS: Emergency Provider Emergency Medicine Emergency Medical Services; PCP Family Medicine; Visit Provider Internal Medicine Cardiovascular Disease | DX: R07.9 Chest pain, unspecified (principal) | CPT/HCPCS: 93010 ==

== ENCOUNTER 2023-02-28 16:29 | Inpatient (IN) | payer MEDICARE, OTHER, SELFPAY ==
--- NOTE | ~2023-02-28 | XR_ITS ---
EXAMINATION: XR CHEST CLINICAL INFORMATION: Shortness of breath COMPARISON: Chest radiograph 02/06/[address] angiogram chest 02/06/2023 TECHNIQUE: Frontal view of the chest was obtained. FINDINGS: Mild cardiomegaly is again seen. There is increased opacity seen at the left lung base with obscuration of the left hemidiaphragm consistent with infiltrate/atelectasis/pleural effusion. The right lung is clear. No large right pleural effusion is seen. No gross CHF. Degenerative changes are present in the spine with scoliosis convex to the right. XR/XR chest 1V IMPRESSION: Cardiomegaly with left lower lobe infiltrate/atelectasis/pleural effusion.
--- NOTE | ~2023-02-28 | CT_ITS ---
EXAMINATION: CT ABDOMEN AND PELVIS WITHOUT CONTRAST CLINICAL INFORMATION: Abdominal pain. COMPARISON: CT of abdomen and pelvis from 02/06/2023. TECHNIQUE: Multidetector volumetric imaging was performed from the superior aspect of the liver through the pubic symphysis. Sagittal and coronal reformatted images were obtained on the technologist's workstation. This CT examination was performed using dose optimization techniques as appropriate, variously including the following: *Automated exposure control *Adjustment of mA and/or kV according to patient size (this includes techniques or standardized protocols for targeted exams where dose is matched to indication/reason for exam; i.e. extremities or head) *Use of iterative reconstruction technique DLP: 487 mGy-cm FINDINGS: LUNG BASES: The [id number] pericardial effusion has slightly increased compared to 02/06/2023. Small pleural effusions and bibasilar atelectasis are present. LIVER: Liver has normal parenchymal attenuation. No acute abnormality. GALLBLADDER AND BILIARY TREE: Gallbladder is without radiopaque stones, wall thickening or pericholecystic fluid. No dilated bile ducts. PANCREAS: Pancreatic duct measures up to 4-5 mm diameter. The ductal dilatation is slightly decreased compared to 02/06/2023. Otherwise, pancreas is unremarkable. No pancreatic edema or peripancreatic fluid. SPLEEN: Normal. ADRENAL GLANDS: Normal. KIDNEYS AND URETERS: Polycystic renal disease. Some of the renal cysts are hyperdense on this noncontrast CT imaging and are not significantly changed in attenuation compared to contrast-enhanced images from 02/06/2023. This is compatible with presence of a few hyperdense proteinaceous cysts. No renal imaging follow-up recommended. Scattered parenchymal calcifications are present within each kidney. Difficult to exclude any small calyceal stones. No hydroureteronephrosis. BLADDER: Normal. No calculi or wall thickening. BOWEL AND PERITONEUM: Gastrointestinal tract is not optimally evaluated on this noncontrast examination. The stomach is underdistended. No dilated bowel loops. No focal bowel wall thickening, mesenteric fat stranding or free fluid. There are diverticula of the colon without evidence of diverticulitis. ABDOMINAL WALL: No new findings within the abdominal wall. Again noted is a small left inguinal hernia that contains fat and a short segment of unobstructed bowel. VASCULATURE: Atherosclerotic calcification of the abdominal aorta and iliac arteries without aneurysm. No retroperitoneal hematoma. LYMPH NODES: No pathologic sized lymph nodes in the abdomen or pelvis. No inguinal lymphadenopathy. PELVIC VISCERA: Unremarkable. MUSCULOSKELETAL: There is chondrocalcinosis and rotatory levoscoliosis of the lower thoracic and lumbar spine. There is lumbarization of S1. Degenerative disc space narrowing is predominantly noted at L2-L3 and L5-S1. No suspicious bone lesions. There is chondrocalcinosis at the hips and pubic symphysis. CT/CT abdomen pelvis wo IV con IMPRESSION: * No acute imaging abnormalities in the abdomen or pelvis compared to 02/06/2023. * Persistent (and increased) pericardial effusion and new small bilateral pleural effusions with bibasilar atelectasis. * Polycystic renal disease. * Colonic diverticulosis without evidence of diverticulitis. * Small left inguinal hernia contains fat and short segment of bowel. No bowel obstruction. * Again noted is mild dilatation of the pancreatic duct, significance uncertain. There is no overt pancreatic head mass or ampullary lesion seen on this limited noncontrast exam, nor on the prior contrast-enhanced images from 02/06/2023.
[2023-02-28 16:34] VITALS: BP 135/85; PULSE 150; O2SAT 97
[2023-02-28 16:37] VITALS: BP 141/70; PULSE 144; RESP 20; TEMP 37.9; O2SAT 90; BMI 22.2
--- NOTE | 2023-02-28 16:37 | ED_ITS ---
HPI - General Adult General Chief complaint: Fever Stated complaint: feel un-well Time Seen by Provider: 02/28/23 16:36 Source: patient and EMS Mode of arrival: EMS History of Present Illness HPI narrative: This is a 73-year-old male, dialysis dependent who is brought in by EMS for complaints of feeling unwell, he has undergone dialysis today and has typical treatment is Tuesday/Tuesday/Tuesday. Patient states that he is had subjective fevers with nausea but denies any diarrhea or shortness of breath or chest pain/palpitations. Related Data Home Medications Medication Instructions Recorded Confirmed ascorbic acid (vitamin C) 500 mg 500 mg PO DAILY 02/28/23 02/28/23 tablet clonazepam 1 mg tablet 1 mg PO TID 02/28/23 02/28/23 cyanocobalamin (vitamin B-12) 1,000 mcg PO DAILY 02/28/23 02/28/23 1,000 mcg tablet ergocalciferol (vitamin D2) 1,250 1,250 mcg PO QMONTH 02/28/23 02/28/23 mcg (50,000 unit) capsule furosemide 80 mg tablet 80 mg PO SUTUTHSA 02/28/23 02/28/23 lamotrigine 25 mg tablet 75 mg PO QAM 02/28/23 02/28/23 lisinopril 20 mg tablet 20 mg PO DAILY 02/28/23 02/28/23 oxcarbazepine 600 mg tablet 600 mg PO BID 02/28/23 02/28/23 prochlorperazine maleate 5 mg 5 mg PO BID 02/28/23 02/28/23 tablet sodium polystyrene sulfonate 15 g PO SUTUTHSA 02/28/23 02/28/23 trazodone 50 mg tablet 50 mg PO BEDTIME 02/28/23 02/28/23 Allergies Allergy/AdvReac Type Severity Reaction Status Date / Time bupropion [From WELLBUTRIN] AdvReac Unknown CONSTIPATIO Verified 02/06/23 07:18 N NSAIDS (Non-Steroidal AdvReac Unknown RENAL Verified 02/06/23 07:18 Anti-Inflamma [NSAIDS (NON-STEROIDAL ANTI-INFLAMMA] [id number] Reductase AdvReac Unknown UNK Verified 02/06/23 07:18 Inhibitor [[id number] REDUCTASE INHIBITOR] Review of Systems Review of Systems: Pertinent positives and negatives as stated in HPI PMFSH Past Medical History Source: nursing notes reviewed Medical History Chronic kidney 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 Social History Social History Alcohol intake: never Smoked in Last 30 Days: Yes Use of substances other than those prescribed or required for medical reasons: No Advance Directives: No Advance Directives Information Provided: Yes Physical Exam ED Vital Signs: Vital Signs - 24 hr 02/28/23 16:37 02/28/23 18:10 02/28/23 18:58 Temperature 100.3 F 100.6 F H 98.4 F Pulse Rate 144 H 120 H 118 H Respiratory Rate 20 26 H 17 Blood Pressure 141/70 H 130/70 109/60 Pulse Oximetry 90 L 96 91 L Oxygen Delivery Method Room Air Room Air Nasal Cannula Oxygen Flow Rate 2 02/28/23 19:58 Temperature 99.4 F Pulse Rate 121 H Respiratory Rate 17 Blood Pressure 123/75 Pulse Oximetry 93 Oxygen Delivery Method Nasal Cannula Oxygen Flow Rate 2 BMI result Body Mass Index 22.2 VITAL SIGNS: Reviewed. GENERAL: Well developed, well nourished, in no acute distress. HEAD: Normocephalic/atraumatic EYES: PERRLA, EOMI EARS: Ext canals without abnormality NOSE: Nares patent bilateral OROPHARYNX: no oral lesions noted, posterior pharynx clear, dry mucosa NECK: Supple, no adenopathy LUNGS: Bibasilar rales, mild tachypnea otherwise no expiratory wheeze or crackles noted SpO2<96> CARDIOVASCULAR: Regular rate and rhythm without noted murmurs, no JVD or lower extremity edema. ABDOMEN: Soft, non-tender, non-distended with bowel sounds. MUSCULOSKELETAL: No tenderness, deformities, or effusions noted on gross inspection. EXTREMITIES: No cyanosis, clubbing or edema. LUE: AV fistula with good thrill and bruit SKIN: Inspection of the skin reveals no rashes, tactile fever NEUROLOGIC: Alert and oriented x 4. Strength and sensation to light touch were grossly intact x 4. Medications Administered Discontinued Medications Generic Name Dose Route Start Last Admin Trade Name Freq PRN Reason Stop Dose Admin Acetaminophen 975 mg 02/28/23 16:44 02/28/23 16:58 Acetaminophen 325 Mg Tablet PO 02/28/23 16:45 975 mg ONCE ONE Administration Furosemide 40 mg 02/28/23 18:19 02/28/23 18:35 Furosemide 40 Mg/4 Ml Vial IVPUSH 02/28/23 18:20 40 mg STAT STA Administration Protocol Ceftriaxone Sodium 1 gm/ 50 mls @ 100 mls/hr 02/28/23 18:19 02/28/23 18:35 Sodium Chloride IV 02/28/23 18:48 100 mls/hr ONCE ONE Administration Medical Decision Making Medical Decision Making [facility] Narrative: 1646: 73-year-old male with history and clinical presentation, DDX: Pneumonia, intra-abdominal infection, pulmonary edema, viral syndrome, UTI. I reviewed all investigations and my interpretation is that patient has left lower lobe pneumonia with pleural effusion which is likely contributed to his sepsis and hypoxemia. Hematologic indices although not demonstrating a leukocytosis there is a left shift with normocytic anemia and no evidence of thr ombocytopenia. Coagulation studies with INR-1.7 and chemistry studies are consistent with chronic reliance on dialysis. I did have plans to admit and treat this patient for his pneumonia and hypoxia, however he is adamant about going home and reports that he understands all the risks and benefits, patient is alert and oriented and is discharged on antibiotics and strict instructions to follow-up with his primary care doctor. Chest x-ray shows left lower lobe pneumonia with pleural effusion. Review of CT scan demonstrates pericardial effusion otherwise my interpretation is in agreement with radiology's impression. Inpatient hospitalist was agreeable for admission, however patient is adamant about being discharged and does not care about his fast heart rate or the fact that he has large pneumonia. On re-evaluation, patient had to be placed back on oxygen due to SpO2-88%. I explained to the patient that he had a significant pneumonia with fluid in the left lung and that I was concerned that his heart was still going very fast and that he was not oxygenating well. Patient promptly stated okay I will stay. I discussed with inpatient hospitalist who accepts admission. Differential Diagnosis Differential Diagnoses: The differential diagnosis associated with the presentation includes Please see the discussion above Admission/Observation Consideration of admission/observation: Escalation of care including admission/observation considered Please see the discussion above Consult Healthcare Provider Management of the patient was discussed with: Hospitalist Please see the discussion above Lab Data [facility] Lab Attestation statement: I reviewed the patient's lab results. Please see the discussion above 02/28/23 16:57 02/28/23 16:57 Labs: Lab Results 02/28/23 02/28/23 02/28/23 Range/Units 16:56 16:57 16:57 WBC 10.5 (4.8-10.8) X10*3/uL RBC 3.32 L (4.60-5.80) X10*6/uL Hgb 10.6 L (14.0-18.0) g/dl Hct 31.9 L (42.0-52.0) % MCV 96.1 (80.0-98.0) fL MCH 31.9 (27.0-33.0) pg MCHC 33.2 (31.0-36.0) g/dl RDW 12.9 (11.0-16.0) % Plt Count 362 D (160-400) X10*3/uL MPV 9.0 L (9.4-12.4) fL Immature Gran % (Auto) 0.4 (0.0-0.4) % Neut % (Auto) 86.8 H (45-73) % Lymph % (Auto) 4.4 L (20-40) % [place] % (Auto) 7.0 (2-11) % Eos % (Auto) 0.8 (0-4) % Baso % (Auto) 0.6 (0-2) % Lymph # (Auto) 0.5 L (1.2-4.9) X10*3/uL [place] # (Auto) 0.7 (0.1-1.2) X10*3/uL Eos # (Auto) 0.1 (0.0-0.4) X10*3/uL Baso # (Auto) 0.1 (0.0-0.2) X10*3/uL Abs Immat Gran (auto) 0.04 H (0.00-0.03) X10*3/uL Absolute Neuts (auto) 9.1 H (2.0-8.3) x10*3/uL Absolute Nucleated RBC 0.000 (0.0-0.012) X10*3/uL Nucleated RBC % (auto) 0.0 (0.0-0.2) /100WBC PT 20.2 H (11.1-13.3) SEC INR 1.7 H (0.9-1.1) Sodium 136 (135-145) mmol/L Potassium 4.5 (3.3-5.1) mmol/L Chloride 91 L (96-108) mmol/L Carbon Dioxide 31 H (22-29) mmol/L Anion Gap 19 (12-20) BUN 19 H (9-16) mg/dL Creatinine 4.22 H* (0.5-1.4) mg/dL Estim Creat Clear Calc 15.6 Estimated GFR 14 Random Glucose 116 H (60-115) mg/dL Lactic Acid (0.5-2.0) mmol/L Calcium 10.1 D (8.4-10.2) mg/dL Total Bilirubin 0.6 (0.0-1.0) mg/dL AST 29 (5-37) U/L ALT 41 H (0-40) U/L Alkaline Phosphatase 110 (39-117) U/L B-Natriuretic Peptide (<100) pg/mL Total Protein 7.3 (6.5-8.0) g/dL Albumin 4.0 (3.5-5.0) g/dL Urine Color Urine Appearance Urine pH (5.0-9.0) Ur Specific [place] (1.005-1.025) Urine Protein (Neg-Trace) mg/dL Urine Glucose (UA) (Negative) mg/dL Urine Ketones (Negative) mg/dL Urine Blood (Negative) Urine Nitrite (Negative) Ur Leukocyte Esterase (Negative) Urine RBC (0-2) /HPF Urine WBC (0-5) /HPF Ur Squamous Epith Cells (0-2) /HPF Urine Bacteria (None Seen) Hyaline Casts (0-2) /LPF Ethyl Alcohol < 10 mg/dL Influenza Type A (PCR) (Negative) Influenza Type B (PCR) (Negative) RSV RNA Qual (PCR) (Negative) SARS-CoV-2 RNA (RT-PCR) (Negative) 02/28/23 02/28/23 02/28/23 Range/Units 16:57 16:57 16:57 WBC (4.8-10.8) X10*3/uL RBC (4.60-5.80) X10*6/uL Hgb (14.0-18.0) g/dl Hct (42.0-52.0) % MCV (80.0-98.0) fL MCH (27.0-33.0) pg MCHC (31.0-36.0) g/dl RDW (11.0-16.0) % Plt Count (160-400) X10*3/uL MPV (9.4-12.4) fL Immature Gran % (Auto) (0.0-0.4) % Neut % (Auto) (45-73) % Lymph % (Auto) (20-40) % [place] % (Auto) (2-11) % Eos % (Auto) (0-4) % Baso % (Auto) (0-2) % Lymph # (Auto) (1.2-4.9) X10*3/uL [place] # (Auto) (0.1-1.2) X10*3/uL Eos # (Auto) (0.0-0.4) X10*3/uL Baso # (Auto) (0.0-0.2) X10*3/uL Abs Immat Gran (auto) (0.00-0.03) X10*3/uL Absolute Neuts (auto) (2.0-8.3) x10*3/uL Absolute Nucleated RBC (0.0-0.012) X10*3/uL Nucleated RBC % (auto) (0.0-0.2) /100WBC PT (11.1-13.3) SEC INR (0.9-1.1) Sodium (135-145) mmol/L Potassium (3.3-5.1) mmol/L Chloride (96-108) mmol/L Carbon Dioxide (22-29) mmol/L Anion Gap (12-20) BUN (9-16) mg/dL Creatinine (0.5-1.4) mg/dL Estim Creat Clear Calc Estimated GFR Random Glucose (60-115) mg/dL Lactic Acid 1.1 (0.5-2.0) mmol/L Calcium (8.4-10.2) mg/dL Total Bilirubin (0.0-1.0) mg/dL AST (5-37) U/L ALT (0-40) U/L Alkaline Phosphatase (39-117) U/L B-Natriuretic Peptide 860 H (<100) pg/mL Total Protein (6.5-8.0) g/dL Albumin (3.5-5.0) g/dL Urine Color Urine Appearance Urine pH (5.0-9.0) Ur Specific [place] (1.005-1.025) Urine Protein (Neg-Trace) mg/dL Urine Glucose (UA) (Negative) mg/dL Urine Ketones (Negative) mg/dL Urine Blood (Negative) Urine Nitrite (Negative) Ur Leukocyte Esterase (Negative) Urine RBC (0-2) /HPF Urine WBC (0-5) /HPF Ur Squamous Epith Cells (0-2) /HPF Urine Bacteria (None Seen) Hyaline Casts (0-2) /LPF Ethyl Alcohol mg/dL Influenza Type A (PCR) NEGATIVE (Negative) Influenza Type B (PCR) NEGATIVE (Negative) RSV RNA Qual (PCR) NEGATIVE (Negative) SARS-CoV-2 RNA (RT-PCR) NEGATIVE (Negative) 02/28/23 Range/Units 18:20 WBC (4.8-10.8) X10*3/uL RBC (4.60-5.80) X10*6/uL Hgb (14.0-18.0) g/dl Hct (42.0-52.0) % MCV (80.0-98.0) fL MCH (27.0-33.0) pg MCHC (31.0-36.0) g/dl RDW (11.0-16.0) % Plt Count (160-400) X10*3/uL MPV (9.4-12.4) fL Immature Gran % (Auto) (0.0-0.4) % Neut % (Auto) (45-73) % Lymph % (Auto) (20-40) % [place] % (Auto) (2-11) % Eos % (Auto) (0-4) % Baso % (Auto) (0-2) % Lymph # (Auto) (1.2-4.9) X10*3/uL [place] # (Auto) (0.1-1.2) X10*3/uL Eos # (Auto) (0.0-0.4) X10*3/uL Baso # (Auto) (0.0-0.2) X10*3/uL Abs Immat Gran (auto) (0.00-0.03) X10*3/uL Absolute Neuts (auto) (2.0-8.3) x10*3/uL Absolute Nucleated RBC (0.0-0.012) X10*3/uL Nucleated RBC % (auto) (0.0-0.2) /100WBC PT (11.1-13.3) SEC INR (0.9-1.1) Sodium (135-145) mmol/L Potassium (3.3-5.1) mmol/L Chloride (96-108) mmol/L Carbon Dioxide (22-29) mmol/L Anion Gap (12-20) BUN (9-16) mg/dL Creatinine (0.5-1.4) mg/dL Estim Creat Clear Calc Estimated GFR Random Glucose (60-115) mg/dL Lactic Acid (0.5-2.0) mmol/L Calcium (8.4-10.2) mg/dL Total Bilirubin (0.0-1.0) mg/dL AST (5-37) U/L ALT (0-40) U/L Alkaline Phosphatase (39-117) U/L B-Natriuretic Peptide (<100) pg/mL Total Protein (6.5-8.0) g/dL Albumin (3.5-5.0) g/dL Urine Color Yellow Urine Appearance Clear Urine pH >= 9.0 (5.0-9.0) Ur Specific [place] 1.010 (1.005-1.025) Urine Protein 100 (2+) H (Neg-Trace) mg/dL Urine Glucose (UA) Negative (Negative) mg/dL Urine Ketones Negative (Negative) mg/dL Urine Blood Negative (Negative) Urine Nitrite Negative (Negative) Ur Leukocyte Esterase Negative (Negative) Urine RBC 0-2 (0-2) /HPF Urine WBC 0-5 (0-5) /HPF Ur Squamous Epith Cells 0-2 (0-2) /HPF Urine Bacteria None Seen (None Seen) Hyaline Casts 0-2 (0-2) /LPF Ethyl Alcohol mg/dL Influenza Type A (PCR) (Negative) Influenza Type B (PCR) (Negative) RSV RNA Qual (PCR) (Negative) SARS-CoV-2 RNA (RT-PCR) (Negative) Independent Interpretation I performed an independent interpretation of an: EKG Interpretation: AFib with variable AV block, HR-137, no STEMI but noted ST abnormalities, QRS/QTC is within normal limits. Radiology Impression Discussion of test interpretation with radiology: I have reviewed the radiologist's reading. Radiologist Impression: Please see the discussion above External Record Review External record reviewed: Outpatient record, Prior outpatient labs and Prior outpatient radiology Chronic Conditions Patient?s care impacted by: Hypertension and Other ESRD Critical Care Time Critical Care Time Critical Care Time: Yes Total Critical Care Time: 45 Attestation: I personally attest to this time spent taking care of the patient. Discharge Plan Discharge Clinical Impression: Hypoxemia, Sepsis, Pneumonia, Pleural effusion, left, Effusion, pericardium Patient Disposition: Admitted As Inpatient
--- NOTE | 2023-02-28 16:38 | ECG_ITS ---
Test Reason : tachycardia Blood Pressure : / mmHG Vent. Rate : 137 BPM Atrial Rate : 242 BPM P-R Int : 000 ms QRS Dur : 086 ms QT Int : 250 ms P-R-T Axes : 000 000 126 degrees QTc Int : 377 ms Atrial flutter with variable A-V block Septal infarct , age undetermined ST & T wave abnormality, consider lateral ischemia Abnormal ECG When compared with ECG of 06-FEB-2023 09:36, Atrial flutter has replaced Sinus rhythm Vent. rate has increased BY [address] now depressed in Lateral leads Inverted T waves have replaced nonspecific T wave abnormality in Lateral leads Referred By: Deloris Maurice Electronically Signed By:JONNY CARDENAS
[2023-02-28] MEDS: Acetaminophen 325 MG TABLET 975 MG PO (16:58)
[2023-02-28 17:04] LABS: MANUAL DIFF FLAG NO
[2023-02-28 17:08] LABS: Basophils Absolute Auto 0.1 X10*3/uL (0.0-0.2); Basophils Percent Auto 0.6 % (0-2); Eosinophils Absolute Auto 0.1 X10*3/uL (0.0-0.4); Eosinophils Percent Auto 0.8 % (0-4); Hematocrit 31.9 % (42.0-52.0); Hemoglobin 10.6 g/dl (14.0-18.0); Imm Gran Abs Auto 0.04 X10*3/uL (0.00-0.03); Imm Gran Pct Auto 0.4 % (0.0-0.4); Lymphocytes Absolute Auto 0.5 X10*3/uL (1.2-4.9); Lymphocytes Percent Auto 4.4 % (20-40); Mean Corpuscular HGB Conc 33.2 g/dl (31.0-36.0); Mean Corpuscular Hemoglobin 31.9 pg (27.0-33.0); Mean Corpuscular Volume 96.1 fL (80.0-98.0); Monocytes Absolute Auto 0.7 X10*3/uL (0.1-1.2); Neutrophils Absolute Auto 9.1 x10*3/uL (2.0-8.3); Neutrophils Percent Auto 86.8 % (45-73); Platelet Count 362 X10*3/uL (160-400); Red Blood Count 3.32 X10*6/uL (4.60-5.80); Red Cell Distribution Width 12.9 % (11.0-16.0); White Blood Count 10.5 X10*3/uL (4.8-10.8)
[2023-02-28 17:13] LABS: INTERNATIONAL NORM RATIO 1.7 (0.9-1.1); Prothrombin Time 20.2 SEC (11.1-13.3)
[2023-02-28 17:15] LABS: Lactic Acid 1.1 mmol/L (0.5-2.0)
[2023-02-28 17:25] LABS: B Type Natriuretic Peptide 860 pg/mL (<100)
[2023-02-28 17:27] LABS: Alanine Aminotransferase 41 U/L (0-40); Alkaline Phosphatase 110 U/L (39-117); Anion Gap 19 (12-20); Aspartate Amino Transferase 29 U/L (5-37); Bilirubin Total 0.6 mg/dL (0.0-1.0); Blood Urea Nitrogen 19 mg/dL (9-16); Calcium 10.1 mg/dL (8.4-10.2); Carbon Dioxide 31 mmol/L (22-29); Chloride 91 mmol/L (96-108); Creatinine Clr Calc Pharmacy 15.6; Estimated Glomerular Filt Rate 14; Glucose Random 116 mg/dL (60-115); Potassium 4.5 mmol/L (3.3-5.1); Sodium 136 mmol/L (135-145); Total Protein 7.3 g/dL (6.5-8.0)
[2023-02-28 17:42] LABS: Ethanol < 10 mg/dL
[2023-02-28 18:09] LABS: Influenza A PCR NEGATIVE (Negative); Influenza B PCR NEGATIVE (Negative); Resp Syncy Virus RNA Qual PCR NEGATIVE (Negative); SARS COV2 PCR INHOUSE NEGATIVE (Negative)
[2023-02-28 18:10] VITALS: BP 130/70; PULSE 120; RESP 26; TEMP 38.1; O2SAT 96
[2023-02-28 18:30] LABS: Appearance Urine Clear; Color Urine Yellow; Glucose Urine UA Negative (Negative); Leukocyte Esterase Urine Negative (Negative); Nitrite Urine Negative (Negative); PH >= 9.0 (5.0-9.0); UMIC TRIGGER UACC YES; Urine Blood Negative (Negative); Urine Ketones Negative (Negative); Urine Protein 100 (2+) mg/dL (Neg-Trace)
[2023-02-28 18:33] LABS: Bacteria Urine None Seen (None Seen); Hyaline Casts Urine 0-2 /LPF (0-2); RBC Urine 0-2 /HPF (0-2); Squamous Epithelial Cell Urine 0-2 /HPF (0-2); WBC Urine 0-5 /HPF (0-5)
[2023-02-28] MEDS: Furosemide 40 MG/4 ML VIAL IVPUSH (18:35)
[2023-02-28] MEDS: cefTRIAXone sodium 1 GM in 0.9 % Sodium Chloride 50 ML IV (18:35)
[2023-02-28 18:58] VITALS: BP 109/60; PULSE 118; RESP 17; TEMP 36.9; O2SAT 91
[2023-02-28 19:58] VITALS: BP 123/75; PULSE 121; RESP 17; TEMP 37.4; O2SAT 93
--- NOTE | 2023-02-28 20:19 | PHA.MEDREC ---
Pharmacy Consult ? Medication Reconciliation Pharmacy has completed the medication reconciliation. Patient had list in wallet that match claim history. Kayexalate and Furosemide are on non-diaylsis days only. Cesilia Carmen, AshleeD
[2023-02-28 20:46] VITALS: BP 125/77; PULSE 122; RESP 18; TEMP 37.2; O2SAT 95
--- NOTE | 2023-02-28 20:49 | P.HPHOSP_ITS ---
History of Present Illness Date of Service: 02/28/23 Chief Complaint: Fever and cough This is a 73-year-old male with pertinent history of ESRD on hemodialysis Tuesday/Tuesday/Tuesday, mood disorder, essential hypertension presents to the emergency department for evaluation of cough, fever. Patient states he started feeling unwell on the day of presentation. Reports fevers and chills. Also has been having a cough. Patient reports dyspnea, worse with exertion. Denies orthopnea or PND. Patient denies chest discomfort, palpitations, abdominal pain, changes in urinary or bowel habits. States he completed his hemodialysis session on the day of presentation. Reports being compliant to p.o. home medications. In the emergency department, patient was found to be hypoxemic and imaging concerning for left-sided infiltrate Review of Systems Constitutional: Constitutional: Reports chills and Reports fever(s) Cardiovascular: Cardiovascular: Reports dyspnea on exertion Respiratory: Respiratory: Reports cough and Reports dyspnea on exertion Gastrointestinal: Gastrointestinal: Reports no additional gastrointestinal complaints Genitourinary: Genitourinary: Reports no additional male genitourinary complaints [facility] Medical History Chronic kidney 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 Essential hypertension Mood disorder Pertinent family history: No family history of early CAD Social History Alcohol intake: never Smoked in Last 30 Days: Yes Use of substances other than those prescribed or required for medical reasons: No Advance Directives: No Advance Directives Information Provided: Yes Meds Allergies Allergy/AdvReac Type Severity Reaction Status Date / Time bupropion [From WELLBUTRIN] AdvReac Unknown CONSTIPATIO Verified 02/06/23 07:18 N NSAIDS (Non-Steroidal AdvReac Unknown RENAL Verified 02/06/23 07:18 Anti-Inflamma [NSAIDS (NON-STEROIDAL ANTI-INFLAMMA] [id number] Reductase AdvReac Unknown UNK Verified 02/06/23 07:18 Inhibitor [[id number] REDUCTASE INHIBITOR] Active Medications: Current Medications Heparin Sodium (Porcine) (Heparin Sodium,Porcine 5,000 Unit/Ml Vial) 5,000 unit SUBCUT Q12H [facility] Pharmacy Consult (Consult Rx Perform Med Rec) 1 each MISCELLANE ONCE PRN PRN Reason: Consult order Sodium Chloride (0.9 % Sodium Chloride Flush 3 Ml Syringe) 3 ml IVFLUSH QSHIFT [facility] Home Medications Medication Instructions Recorded Confirmed Last Taken Type ascorbic acid (vitamin C) 500 mg 500 mg PO DAILY 02/28/23 02/28/23 Unknown History tablet clonazepam 1 mg tablet 1 mg PO TID 02/28/23 02/28/23 Unknown History cyanocobalamin (vitamin B-12) 1,000 mcg PO DAILY 02/28/23 02/28/23 Unknown History 1,000 mcg tablet ergocalciferol (vitamin D2) 1,250 1,250 mcg PO QMONTH 02/28/23 02/28/23 Unknown History mcg (50,000 unit) capsule furosemide 80 mg tablet 80 mg PO SUTUTHSA 02/28/23 02/28/23 Unknown History lamotrigine 25 mg tablet 75 mg PO QAM 02/28/23 02/28/23 Unknown History lisinopril 20 mg tablet 20 mg PO DAILY 02/28/23 02/28/23 Unknown History oxcarbazepine 600 mg tablet 600 mg PO BID 02/28/23 02/28/23 Unknown History prochlorperazine maleate 5 mg 5 mg PO BID 02/28/23 02/28/23 Unknown History tablet sodium polystyrene sulfonate 15 g PO SUTUTHSA 02/28/23 02/28/23 Unknown History trazodone 50 mg tablet 50 mg PO BEDTIME 02/28/23 02/28/23 Unknown History Physical Exam Vital Signs and Narrative: Vital Signs: Last Vital Signs Temp 99.4 F 02/28/23 19:58 Pulse 121 H 02/28/23 19:58 Resp 17 02/28/23 19:58 BP 123/75 02/28/23 19:58 Pulse Ox 93 02/28/23 19:58 O2 Del Method Nasal Cannula 02/28/23 19:58 O2 Flow Rate 2 02/28/23 19:58 BMI result Body Mass Index 22.2 Middle-aged male lying in bed in mild distress on supplemental oxygen Neck supple, no JVD Irregularly irregular, S1-S2 heard Left-sided crackles without wheezing Abdomen soft nontender, no guarding, no rigidity Patient is awake, alert and oriented to self, place, time and person ; no focal motor deficit Psych: Normal mood No pedal edema Results Labs 02/28/23 16:57 02/28/23 16:57 Labs: Laboratory Results - last 24 hr 02/28/23 02/28/23 02/28/23 16:56 16:57 16:57 MCV 96.1 MCH 31.9 MCHC 33.2 RDW 12.9 Plt Count 362 D MPV 9.0 L Immature Gran % (Auto) 0.4 Neut % (Auto) 86.8 H Lymph % (Auto) 4.4 L [place] % (Auto) 7.0 Eos % (Auto) 0.8 Baso % (Auto) 0.6 Lymph # (Auto) 0.5 L [place] # (Auto) 0.7 Eos # (Auto) 0.1 Baso # (Auto) 0.1 Abs Immat Gran (auto) 0.04 H Absolute Neuts (auto) 9.1 H Absolute Nucleated RBC 0.000 Nucleated RBC % (auto) 0.0 PT 20.2 H INR 1.7 H Anion Gap 19 Estim Creat Clear Calc 15.6 Estimated GFR 14 Random Glucose 116 H Lactic Acid Calcium 10.1 D Total Bilirubin 0.6 AST 29 ALT 41 H Alkaline Phosphatase 110 B-Natriuretic Peptide Total Protein 7.3 Albumin 4.0 Urine Color Urine Appearance Urine pH Ur Specific [place] Urine Protein Urine Glucose (UA) Urine Ketones Urine Blood Urine Nitrite Ur Leukocyte Esterase Urine RBC Urine WBC Ur Squamous Epith Cells Urine Bacteria Hyaline Casts Ethyl Alcohol < 10 Influenza Type A (PCR) Influenza Type B (PCR) RSV RNA Qual (PCR) SARS-CoV-2 RNA (RT-PCR) 02/28/23 02/28/23 02/28/23 16:57 16:57 16:57 MCV MCH MCHC RDW Plt Count MPV Immature Gran % (Auto) Neut % (Auto) Lymph % (Auto) [place] % (Auto) Eos % (Auto) Baso % (Auto) Lymph # (Auto) [place] # (Auto) Eos # (Auto) Baso # (Auto) Abs Immat Gran (auto) Absolute Neuts (auto) Absolute Nucleated RBC Nucleated RBC % (auto) PT INR Anion Gap Estim Creat Clear Calc Estimated GFR Random Glucose Lactic Acid 1.1 Calcium Total Bilirubin AST ALT Alkaline Phosphatase B-Natriuretic Peptide 860 H Total Protein Albumin Urine Color Urine Appearance Urine pH Ur Specific [place] Urine Protein Urine Glucose (UA) Urine Ketones Urine Blood Urine Nitrite Ur Leukocyte Esterase Urine RBC Urine WBC Ur Squamous Epith Cells Urine Bacteria Hyaline Casts Ethyl Alcohol Influenza Type A (PCR) NEGATIVE Influenza Type B (PCR) NEGATIVE RSV RNA Qual (PCR) NEGATIVE SARS-CoV-2 RNA (RT-PCR) NEGATIVE 02/28/23 18:20 MCV MCH MCHC RDW Plt Count MPV Immature Gran % (Auto) Neut % (Auto) Lymph % (Auto) [place] % (Auto) Eos % (Auto) Baso % (Auto) Lymph # (Auto) [place] # (Auto) Eos # (Auto) Baso # (Auto) Abs Immat Gran (auto) Absolute Neuts (auto) Absolute Nucleated RBC Nucleated RBC % (auto) PT INR Anion Gap Estim Creat Clear Calc Estimated GFR Random Glucose Lactic Acid Calcium Total Bilirubin AST ALT Alkaline Phosphatase B-Natriuretic Peptide Total Protein Albumin Urine Color Yellow Urine Appearance Clear Urine pH >= 9.0 Ur Specific [place] 1.010 Urine Protein 100 (2+) H Urine Glucose (UA) Negative Urine Ketones Negative Urine Blood Negative Urine Nitrite Negative Ur Leukocyte Esterase Negative Urine RBC 0-2 Urine WBC 0-5 Ur Squamous Epith Cells 0-2 Urine Bacteria None Seen Hyaline Casts 0-2 Ethyl Alcohol Influenza Type A (PCR) Influenza Type B (PCR) RSV RNA Qual (PCR) SARS-CoV-2 RNA (RT-PCR) Imaging Radiologist's Impressions: Impressions Chest X-Ray 02/28/23 18:44 IMPRESSION: Cardiomegaly with left lower lobe infiltrate/atelectasis/pleural effusion. Abdomen/Pelvis CT 02/28/23 18:55 IMPRESSION: * No acute imaging abnormalities in the abdomen or pelvis compared to 02/06/2023. * Persistent (and increased) pericardial effusion and new small bilateral pleural effusions with bibasilar atelectasis. * Polycystic renal disease. * Colonic diverticulosis without evidence of diverticulitis. * Small left inguinal hernia contains fat and short segment of bowel. No bowel obstruction. * Again noted is mild dilatation of the pancreatic duct, significance uncertain. There is no overt pancreatic head mass or ampullary lesion seen on this limited noncontrast exam, nor on the prior contrast-enhanced images from 02/06/2023. Assessment and Plan (1) Hypoxemia: Status: Acute (2) Sepsis: Status: Acute Plan This is a 73-year-old male with pertinent history of ESRD on hemodialysis Tuesday/Tuesday/Tuesday, mood disorder, essential hypertension presents to the emergency department for evaluation of cough, fever. #. Acute hypoxemic respiratory failure and Sepsis due to left-sided pneumonia. Will admit patient with supplemental oxygen. Defer IV crystalloid resuscitation as patient is ESRD. Obtained lactic acid and blood culture. Will initiate IV empiric antibiotics. Sputum culture pending #. ESRD. Consulting Nephrology. Patient undergoes hemodialysis Tuesday/Tuesday/Tuesday #. Essential hypertension. Hold p.o. antihypertensives in the setting of sepsis. Resume as appropriate #. Atrial flutter with RVR. Obtaining TSH and consulting Cardiology, appreciate assistance. #. Pericardial effusion noted on imaging. Will obtain thoracic surgery for pericardiocentesis. Labs pending #. Anemia of chronic kidney disease. Hemoglobin above transfusion threshold #. Mood disorder. Continue home mood stabilizers DVT prophylaxis: Heparin Full code Admit as inpatient and will require two night minimum hospital stay for supplemental oxygen and IV antibiotics Time Spent With Patient Time: Total time managing care of this patient today ____ minutes. Quality Stroke Does the patient have a stroke diagnosis?: No VTE Prior VTE?: No VTE Risk Level:: Medical - moderate - high VTE Device Contraindication: Treatment Not Indicated VTE Drug Contraindication: N/A - Med Ordered
[2023-02-28] MEDS: clonazePAM 1 MG TABLET PO (22:08)
[2023-02-28] MEDS: OXcarbazepine 300 MG TABLET 600 MG PO (22:08)
[2023-02-28] MEDS: traZODone HCL 50 MG TABLET PO (22:08)
[2023-02-28] MEDS: Azithromycin 500 MG in 0.9 % Sodium Chloride 250 ML 125 MG IV (22:12)
[2023-02-28 22:22] LABS: Lactate Dehydrogenase 290 U/L (118-273)
[2023-02-28 22:37] LABS: Thyroid Stimulating Hormone 1.31 uIU/mL (0.32-4.0)
[2023-03-01] VITALS (8 sets, daily range): BP systolic 103–158; BP diastolic 53–77; PULSE 74–87; RESP 16–24; TEMP 36.6–38.3; O2SAT 88–100; BMI 21.4
--- NOTE | 2023-03-01 | ECG_ITS ---
Test Reason : RYTHYM CHANGE Blood Pressure : / mmHG Vent. Rate : 076 BPM Atrial Rate : 076 BPM P-R Int : 208 ms QRS Dur : 090 ms QT Int : 390 ms P-R-T Axes : 039 000 079 degrees QTc Int : 438 ms Sinus rhythm with occasional Premature ventricular complexes Nonspecific T wave abnormality Abnormal ECG When compared with ECG of 28-FEB-2023 16:46, Sinus rhythm has replaced Atrial flutter Vent. rate has decreased BY 61 BPM T wave inversion no longer evident in Lateral leads Referred By: Kenny Bowden Electronically Signed By:JONNY CARDENAS
[2023-03-01] MEDS: 0.9 % Sodium Chloride Flush 3 ML SYRINGE IVFLUSH ×3 (00:11→16:13)
[2023-03-01 06:14] LABS: MANUAL DIFF FLAG NO
[2023-03-01 06:18] LABS: Basophils Absolute Auto 0.1 X10*3/uL (0.0-0.2); Basophils Percent Auto 0.7 % (0-2); Eosinophils Absolute Auto 0.2 X10*3/uL (0.0-0.4); Eosinophils Percent Auto 1.8 % (0-4); Hematocrit 29.7 % (42.0-52.0); Hemoglobin 9.9 g/dl (14.0-18.0); Imm Gran Abs Auto 0.04 X10*3/uL (0.00-0.03); Imm Gran Pct Auto 0.4 % (0.0-0.4); Lymphocytes Absolute Auto 0.9 X10*3/uL (1.2-4.9); Lymphocytes Percent Auto 9.9 % (20-40); Mean Corpuscular HGB Conc 33.3 g/dl (31.0-36.0); Mean Corpuscular Hemoglobin 32.1 pg (27.0-33.0); Mean Corpuscular Volume 96.4 fL (80.0-98.0); Monocytes Absolute Auto 0.8 X10*3/uL (0.1-1.2); Neutrophils Absolute Auto 7.3 x10*3/uL (2.0-8.3); Neutrophils Percent Auto 78.2 % (45-73); Platelet Count 344 X10*3/uL (160-400); Red Blood Count 3.08 X10*6/uL (4.60-5.80); Red Cell Distribution Width 13.1 % (11.0-16.0); White Blood Count 9.4 X10*3/uL (4.8-10.8)
[2023-03-01 06:36] LABS: Anion Gap 17 (12-20); Blood Urea Nitrogen 31 mg/dL (9-16); Carbon Dioxide 29 mmol/L (22-29); Chloride 94 mmol/L (96-108); Creatinine Clr Calc Pharmacy 11.7; Estimated Glomerular Filt Rate 10; Glucose Random 93 mg/dL (60-115); Potassium 5.3 mmol/L (3.3-5.1); Sodium 135 mmol/L (135-145)
--- NOTE | 2023-03-01 07:00 | CA_ITS ---
Transthoracic Echocardiogram Patient (Last, First, Middle): Igor May, Gender: Male Date of : 1950 Age: 73 Procedure Date: 03/01/2023 Procedure Type: Transthoracic Echocardiogram Location: ER Height: 180.34 cm Weight: 72.12 kg BSA: 1.91 m2 Heart Rate: 77 bpm BP: 132 / 71 mmHg Theater Set Production Designer: RICHARD Referring MD: Crow Mayorga MD Lcsw: Kenny Bowden MD Symptoms: pericardial effusion, assess for early tamponade/limited study ordered Study Quality: Adequate ECG Rhythm: Sinus Conclusions: - 1. Mildly reduced LV systolic function with LVEF of 45-50% with elevated filling pressures 2. Small to moderate circumferential pericardial effusion without any clear evidence of tamponade 3. Moderately elevated right atrial pressures Findings Left Ventricle Normal left ventricular cavity size. The left ventricular systolic function is mildly decreased. The visually estimated ejection fraction is between 45 50%. Spectral Doppler is indicative of an impaired relaxation filling pattern. Elevated filling pressures. E/E prime ratio is >15, consistent with elevated filling pressures. Tricuspid Valve Moderately elevated right atrial pressure. Venous The inferior vena cava is moderately dilated and collapses less than 50% with inspiration. Pericardium/Pleural There is a circumferential pericardial effusion. There are no definitive echocardiographic findings of tamponade physiology. No discernable variation of the mitral valve and tricuspid valve Doppler velocities with respiration. Small to moderate pericardial effusion noted Prior Study Comparison No prior study available for comparison. Measurements 2D Linear Measurements IVSd: 0.90 0.6-0.9/0.6-1.0 cm LVIDd: 5.70 3.9-5.3/4.2-5.9 cm LVIDd Index: 2.98 2.4-3.2/2.2-3.1 cm/m2 LVIDs: 4.40 2.0-3.6 cm LVPWd: 0.90 0.7-1.1 cm LV Mass: 246.15 67-162/88-224 g LV Mass Index: 128.87 43-95/49-115 g/m2 2D Systolic Function EF 4C: 49.10 >55% Mitral Valve MV Pk E: 1.17 MV PK A: 1.29 MV Decel Time: 125.00 E/A: 0.90 E'Lateral: 6.53 E'Medial: 5.66 E/E' Med: 20.70 E/E' Lat: 17.90 PHT: 37.00 MVA PHT: 5.95 Decel [place]: 9.39 Diastolic Function MV Pk E: 1.17 MV Pk A: 1.29 E/A: 0.90 E'Medial: 5.66 E/E' Med: 20.70 E' Laterial: 6.53 E/E' Lat: 17.90 Tricuspid Valve RA Press: 15.00 Updated in Other Vendor System with Status of Final Kenny Bowden MD electronically signed on 03/01/2023 10:01:24 AM with status of Final
--- NOTE | 2023-03-01 09:04 | HO.THORCON_ITS ---
History of Present Illness Consult details Consult date: 03/01/23 Narrative: Thoracic surgical consultation for evaluation of a pericardial effusion. Patient has a plethora of medical problems including end-stage renal disease for which he receives hemodialysis. Patient is and should because of feeling unwell with fever. Workup has demonstrated pneumonia as well as pleural effusion reviewing all scans, patient also had a pericardial effusion which is not uncommon for renal dialysis patient. Patient is currently stable with no significant hemodynamic compromise. Chart was reviewed and patient evaluated PMFSH Past Medical History Medical History Chronic kidney 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 Essential hypertension Mood disorder Social History Social History Alcohol intake: never Smoked in Last 30 Days: Yes Use of substances other than those prescribed or required for medical reasons: No Advance Directives: No Advance Directives Information Provided: Yes Meds Allergies Allergy/AdvReac Type Severity Reaction Status Date / Time bupropion [From WELLBUTRIN] AdvReac Unknown CONSTIPATIO Verified 02/06/23 07:18 N NSAIDS (Non-Steroidal AdvReac Unknown RENAL Verified 02/06/23 07:18 Anti-Inflamma [NSAIDS (NON-STEROIDAL ANTI-INFLAMMA] [id number] Reductase AdvReac Unknown UNK Verified 02/06/23 07:18 Inhibitor [[id number] REDUCTASE INHIBITOR] Active Medications: Current Medications Acetaminophen (Acetaminophen 325 Mg Tablet) 650 mg PO Q6H PRN PRN Reason: Pain, Mild (Pain Scale 1-3) Ascorbic Acid (Ascorbic Acid 500 Mg Tablet) 500 mg PO DAILY [facility] Clonazepam (Clonazepam 1 Mg Tablet) 1 mg PO TID [place] Cyanocobalamin (Cyanocobalamin (Vitamin B-12) 1,000 Mcg Tablet) 1,000 mcg PO DAILY [facility] Ergocalciferol (Ergocalciferol (Vitamin D2) 1,250 Mcg Capsule) 1,250 mcg PO QMONTH [facility] Furosemide (Furosemide 40 Mg Tablet) 80 mg PO SuTuThSa@0900 [facility]; Protocol Heparin Sodium (Porcine) (Heparin Sodium,Porcine 5,000 Unit/Ml Vial) 5,000 unit SUBCUT Q12H [facility] Last Admin: 02/28/23 22:13 Dose: Not Given Ceftriaxone Sodium 1 gm/ (Sodium Chloride) 50 mls @ 100 mls/hr IV Q24H [facility] Azithromycin 500 mg/ Sodium (Chloride) 250 mls @ 125 mls/hr IV Q24H [facility] Last Infusion: 03/01/23 01:51 Dose: Infused Lamotrigine (Lamotrigine 25 Mg Tablet) 75 mg PO DAILY [facility] Melatonin (Melatonin 3 Mg Tablet) 6 mg PO BEDTIME PRN PRN Reason: Insomnia Ondansetron HCl (Ondansetron Hcl 4 Mg/2 Ml Vial) 4 mg IVPUSH Q8H PRN PRN Reason: Nausea and Vomiting Oxcarbazepine (Oxcarbazepine 300 Mg Tablet) 600 mg PO BID [facility] Pharmacy Consult (Consult Rx Perform Med Rec) 1 each MISCELLANE ONCE PRN PRN Reason: Consult order Prochlorperazine Maleate (Prochlorperazine Maleate 5 Mg Tablet) 5 mg PO BID [facility] Sodium Chloride (0.9 % Sodium Chloride Flush 3 Ml Syringe) 3 ml IVFLUSH QSHIFT [facility] Last Admin: 03/01/23 00:11 Dose: 3 ml Sodium Polystyrene Sulfonate (Sodium Polystyrene Sulfon/Sorb 15 Gm/60 Ml Oral.Susp) 15 gm PO SuTuThSa@0900 [facility] Trazodone HCl (Trazodone Hcl 50 Mg Tablet) 50 mg PO BEDTIME [facility] Home Medications Medication Instructions Recorded Confirmed Last Taken Type ascorbic acid (vitamin C) 500 mg 500 mg PO DAILY 02/28/23 02/28/23 Unknown History tablet clonazepam 1 mg tablet 1 mg PO TID 02/28/23 02/28/23 Unknown History cyanocobalamin (vitamin B-12) 1,000 mcg PO DAILY 02/28/23 02/28/23 Unknown History 1,000 mcg tablet ergocalciferol (vitamin D2) 1,250 1,250 mcg PO QMONTH 02/28/23 02/28/23 Unknown History mcg (50,000 unit) capsule furosemide 80 mg tablet 80 mg PO SUTUTHSA 02/28/23 02/28/23 Unknown History lamotrigine 25 mg tablet 75 mg PO QAM 02/28/23 02/28/23 Unknown History lisinopril 20 mg tablet 20 mg PO DAILY 02/28/23 02/28/23 Unknown History oxcarbazepine 600 mg tablet 600 mg PO BID 02/28/23 02/28/23 Unknown History prochlorperazine maleate 5 mg 5 mg PO BID 02/28/23 02/28/23 Unknown History tablet sodium polystyrene sulfonate 15 g PO SUTUTHSA 02/28/23 02/28/23 Unknown History trazodone 50 mg tablet 50 mg PO BEDTIME 02/28/23 02/28/23 Unknown History Physical Exam Vital Signs: Vital Signs: Last Vital Signs Temp 98 F 03/01/23 07:18 Pulse 78 03/01/23 07:18 Resp 20 03/01/23 07:18 BP 132/71 03/01/23 07:18 Pulse Ox 97 03/01/23 07:18 O2 Del Method Nasal Cannula 03/01/23 07:18 O2 Flow Rate 4 03/01/23 07:18 BMI result Body Mass Index 22.2 Const: Other: Thin male in no acute distress. He is actually hungry. Chest: Other: Chest breath sounds bilaterally. HS 1 and 2 GI: Other: Abdomen is soft, benign Extrem: Other: Right upper extremity fistula Results Labs 03/01/23 06:00 03/01/23 06:00 Labs: Abnormal lab results 02/28/23 02/28/23 02/28/23 Range/Units 16:56 16:57 16:57 RBC 3.32 L (4.60-5.80) X10*6/uL Hgb 10.6 L (14.0-18.0) g/dl Hct 31.9 L (42.0-52.0) % MPV 9.0 L (9.4-12.4) fL Neut % (Auto) 86.8 H (45-73) % Lymph % (Auto) 4.4 L (20-40) % Lymph # (Auto) 0.5 L (1.2-4.9) X10*3/uL Abs Immat Gran (auto) 0.04 H (0.00-0.03) X10*3/uL Absolute Neuts (auto) 9.1 H (2.0-8.3) x10*3/uL PT 20.2 H (11.1-13.3) SEC INR 1.7 H (0.9-1.1) Potassium (3.3-5.1) mmol/L Chloride 91 L (96-108) mmol/L Carbon Dioxide 31 H (22-29) mmol/L BUN 19 H (9-16) mg/dL Creatinine 4.22 H* (0.5-1.4) mg/dL Random Glucose 116 H (60-115) mg/dL ALT 41 H (0-40) U/L Lactate Dehydrogenase 290 H (118-273) U/L B-Natriuretic Peptide (<100) pg/mL Urine Protein (Neg-Trace) mg/dL 02/28/23 02/28/23 03/01/23 Range/Units 16:57 18:20 06:00 RBC 3.08 L (4.60-5.80) X10*6/uL Hgb 9.9 L (14.0-18.0) g/dl Hct 29.7 L (42.0-52.0) % MPV 9.0 L (9.4-12.4) fL Neut % (Auto) 78.2 H (45-73) % Lymph % (Auto) 9.9 L (20-40) % Lymph # (Auto) 0.9 L (1.2-4.9) X10*3/uL Abs Immat Gran (auto) 0.04 H (0.00-0.03) X10*3/uL Absolute Neuts (auto) (2.0-8.3) x10*3/uL PT (11.1-13.3) SEC INR (0.9-1.1) Potassium (3.3-5.1) mmol/L Chloride (96-108) mmol/L Carbon Dioxide (22-29) mmol/L BUN (9-16) mg/dL Creatinine (0.5-1.4) mg/dL Random Glucose (60-115) mg/dL ALT (0-40) U/L Lactate Dehydrogenase (118-273) U/L B-Natriuretic Peptide 860 H (<100) pg/mL Urine Protein 100 (2+) H (Neg-Trace) mg/dL 03/01/23 Range/Units 06:00 RBC (4.60-5.80) X10*6/uL Hgb (14.0-18.0) g/dl Hct (42.0-52.0) % MPV (9.4-12.4) fL Neut % (Auto) (45-73) % Lymph % (Auto) (20-40) % Lymph # (Auto) (1.2-4.9) X10*3/uL Abs Immat Gran (auto) (0.00-0.03) X10*3/uL Absolute Neuts (auto) (2.0-8.3) x10*3/uL PT (11.1-13.3) SEC INR (0.9-1.1) Potassium 5.3 H (3.3-5.1) mmol/L Chloride 94 L (96-108) mmol/L Carbon Dioxide (22-29) mmol/L BUN 31 H (9-16) mg/dL Creatinine 5.63 H* (0.5-1.4) mg/dL Random Glucose (60-115) mg/dL ALT (0-40) U/L Lactate Dehydrogenase (118-273) U/L B-Natriuretic Peptide (<100) pg/mL Urine Protein (Neg-Trace) mg/dL Short CBC 02/28/23 03/01/23 Range/Units 16:57 06:00 WBC 10.5 9.4 (4.8-10.8) X10*3/uL Hgb 10.6 L 9.9 L (14.0-18.0) g/dl Hct 31.9 L 29.7 L (42.0-52.0) % Plt Count 362 D 344 (160-400) X10*3/uL BMP 02/28/23 03/01/23 16:57 06:00 Sodium 136 135 Potassium 4.5 5.3 H Chloride 91 L 94 L Carbon Dioxide 31 H 29 BUN 19 H 31 H Creatinine 4.22 H* 5.63 H* Calcium 10.1 D 9.0 D Liver Function 02/28/23 Range/Units 16:57 Total Bilirubin 0.6 (0.0-1.0) mg/dL AST 29 (5-37) U/L ALT 41 H (0-40) U/L Alkaline Phosphatase 110 (39-117) U/L Albumin 4.0 (3.5-5.0) g/dL Urine 02/28/23 Range/Units 18:20 Urine Color Yellow Urine Appearance Clear Urine pH >= 9.0 (5.0-9.0) Ur Specific [place] 1.010 (1.005-1.025) Urine Protein 100 (2+) H (Neg-Trace) mg/dL Urine Glucose (UA) Negative (Negative) mg/dL All other labs normal. Assessment and Plan (1) Pleural effusion, left: Status: Acute (2) Effusion, pericardium: Status: Acute (3) Pneumonia: Status: Acute (4) Sepsis: Status: Acute (5) Hypoxemia: Status: Acute Plan Current plan is to obtain a cardiac echo to have a baseline of the patient's pericardial effusion and hemodynamic status and direct further therapy based on his clinical course and echo findings. Time Spent With Patient Time: Total time managing care of this patient today ____ minutes. Procedures Date of Service Date of Service: 03/01/23
--- NOTE | 2023-03-01 09:08 | PC.NURSE ---
PT IS A/O NO SOB/GENARO NOTED. SPEAKS IN FULL SENTENCES. ECHOCARDDIOGRAM WAS DONE AT BEDSIDE. PT WAS ALSO SEEN BY TRIAGE TECHNICIAN. PER TRIAGE TECHNICIAN PT IS NOT A SURGICAL CANDIDATE AT THIS TIME PER ECHOCARDIOGRAM RESULTS.
--- NOTE | 2023-03-01 09:51 | PC.NURSE ---
per dr. dean pt can have a diet 2ndary to echocardiogram being negative. pt aware of plan of care.
[2023-03-01] MEDS: lamoTRIgine 25 MG TABLET 75 MG PO (09:58)
[2023-03-01] MEDS: Furosemide 40 MG TABLET 80 MG PO (09:58)
[2023-03-01] MEDS: Heparin Sodium,Porcine 5,000 UNIT/ML VIAL 5000 UNIT SUBCUT ×2 (09:59→20:42)
[2023-03-01] MEDS: Ascorbic Acid 500 MG TABLET PO (09:59)
[2023-03-01] MEDS: Cyanocobalamin (Vitamin B-12) 1,000 MCG TABLET 1000 MCG PO (09:59)
[2023-03-01] MEDS: clonazePAM 1 MG TABLET PO ×3 (09:59→20:58)
[2023-03-01] MEDS: Sodium Polystyrene Sulfon/Sorb 15 GM/60 ML ORAL.SUSP PO (10:00)
[2023-03-01] MEDS: OXcarbazepine 300 MG TABLET 600 MG PO ×2 (10:03→20:41)
[2023-03-01] MEDS: Prochlorperazine Maleate 5 MG TABLET PO ×2 (10:03→20:41)
--- NOTE | 2023-03-01 10:21 | PC.NURSE ---
pt seen by dr. govea (hosp) pt aware of plan of care.
--- NOTE | 2023-03-01 10:27 | PM.CNCAR ---
History of Present Illness History of Present Illness Date of Service: 03/01/23 Requesting physician: Marino Butler Consult reason: other (Pericardial effusion) Chief complaint: fever Narrative: I was consulted to see Igor in cardiology consultation today for pericardial effusion. He is a 73-year-old male with prior history of history renal disease on hemodialysis Uflzhb-Vyvsdbzyg-[id number], hypertension, bipolar disorder and mood disorder present this hospital with cough and fever. Patient also complained of chills. Came to the emergency room and was noted to have left-sided infiltrate suggestive of pneumonia. Patient also on the CT scan was noted to have pericardial effusion which is small to moderate and was larger than reported in the past and therefore cardiology consult was called. Thoracic surgery also has been call. Bedside echo was performed to rule out tamponade physiology and is was negative for tamponade physiology although suggestion of increased right atrial pressures as well as left-sided filling pressures. Patient has no symptoms of heart failure. Hemodynamically stable. He was noted to be hypoxemic and currently using oxygen supplementation with correction of his hypoxemia. Review of Systems Constitutional: Constitutional: Reports chills and Reports fever(s) Eyes: Eyes: Reports no additional eye complaints Cardiovascular: Cardiovascular: Reports no additional cardiovascular complaints Respiratory: Respiratory: Reports cough Gastrointestinal: Gastrointestinal: Reports no additional gastrointestinal complaints Musculoskeletal: Musculoskeletal: Reports no additional musculoskeletal complaints Integumentary/Breasts: Skin/Breast: Reports system reviewed and no additional complaints, except as docu Neurologic: Reports system reviewed and no additional complaints, except as documented Psychiatric: Psychiatric: Reports no additional psychiatric complaints [facility] Past Medical History Medical History AV fistula Chronic kidney 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 Essential hypertension Mood disorder Nicotine dependence, cigarettes, uncomplicated Surgical History Surgical History History of colonoscopy History of hernia repair History of parathyroidectomy Social History Social History Alcohol intake: never Smoked in Last 30 Days: Yes Use of substances other than those prescribed or required for medical reasons: No Advance Directives: No Advance Directives Information Provided: Yes Meds Allergies Allergy/AdvReac Type Severity Reaction Status Date / Time bupropion [From WELLBUTRIN] AdvReac Unknown CONSTIPATIO Verified 02/06/23 07:18 N NSAIDS (Non-Steroidal AdvReac Unknown RENAL Verified 02/06/23 07:18 Anti-Inflamma [NSAIDS (NON-STEROIDAL ANTI-INFLAMMA] [id number] Reductase AdvReac Unknown UNK Verified 02/06/23 07:18 Inhibitor [[id number] REDUCTASE INHIBITOR] Active Medications: Current Medications Acetaminophen (Acetaminophen 325 Mg Tablet) 650 mg PO Q6H PRN PRN Reason: Pain, Mild (Pain Scale 1-3) Ascorbic Acid (Ascorbic Acid 500 Mg Tablet) 500 mg PO DAILY [facility] Last Admin: 03/01/23 09:59 Dose: 500 mg Clonazepam (Clonazepam 1 Mg Tablet) 1 mg PO TID [facility] Last Admin: 03/01/23 09:59 Dose: 1 mg Cyanocobalamin (Cyanocobalamin (Vitamin B-12) 1,000 Mcg Tablet) 1,000 mcg PO DAILY [facility] Last Admin: 03/01/23 09:59 Dose: 1,000 mcg Ergocalciferol (Ergocalciferol (Vitamin D2) 1,250 Mcg Capsule) 1,250 mcg PO QMONTH [facility] Furosemide (Furosemide 40 Mg Tablet) 80 mg PO SuTuThSa@0900 [facility]; Protocol Last Admin: 03/01/23 09:58 Dose: 80 mg Heparin Sodium (Porcine) (Heparin Sodium,Porcine 5,000 Unit/Ml Vial) 5,000 unit SUBCUT Q12H [facility] Last Admin: 03/01/23 09:59 Dose: 5,000 unit Ceftriaxone Sodium 1 gm/ (Sodium Chloride) 50 mls @ 100 mls/hr IV Q24H [facility] Azithromycin 500 mg/ Sodium (Chloride) 250 mls @ 125 mls/hr IV Q24H [facility] Last Infusion: 03/01/23 01:51 Dose: Infused Lamotrigine (Lamotrigine 25 Mg Tablet) 75 mg PO DAILY [facility] Last Admin: 03/01/23 09:58 Dose: 75 mg Melatonin (Melatonin 3 Mg Tablet) 6 mg PO BEDTIME PRN PRN Reason: Insomnia Ondansetron HCl (Ondansetron Hcl 4 Mg/2 Ml Vial) 4 mg IVPUSH Q8H PRN PRN Reason: Nausea and Vomiting Oxcarbazepine (Oxcarbazepine 300 Mg Tablet) 600 mg PO BID [facility] Last Admin: 03/01/23 10:03 Dose: 600 mg Pharmacy Consult (Consult Rx Perform Med Rec) 1 each MISCELLANE ONCE PRN PRN Reason: Consult order Prochlorperazine Maleate (Prochlorperazine Maleate 5 Mg Tablet) 5 mg PO BID [facility] Last Admin: 03/01/23 10:03 Dose: 5 mg Sodium Chloride (0.9 % Sodium Chloride Flush 3 Ml Syringe) 3 ml IVFLUSH QSHIFT [facility] Last Admin: 03/01/23 09:59 Dose: 3 ml Sodium Polystyrene Sulfonate (Sodium Polystyrene Sulfon/Sorb 15 Gm/60 Ml Oral.Susp) 15 gm PO SuTuThSa@0900 [facility] Last Admin: 03/01/23 10:00 Dose: 15 gm Trazodone HCl (Trazodone Hcl 50 Mg Tablet) 50 mg PO BEDTIME [facility] Home Medications Medication Instructions Recorded Confirmed Last Taken Type ascorbic acid (vitamin C) 500 mg 500 mg PO DAILY 02/28/23 02/28/23 Unknown History tablet clonazepam 1 mg tablet 1 mg PO TID 02/28/23 02/28/23 Unknown History cyanocobalamin (vitamin B-12) 1,000 mcg PO DAILY 02/28/23 02/28/23 Unknown History 1,000 mcg tablet ergocalciferol (vitamin D2) 1,250 1,250 mcg PO QMONTH 02/28/23 02/28/23 Unknown History mcg (50,000 unit) capsule furosemide 80 mg tablet 80 mg PO SUTUTHSA 02/28/23 02/28/23 Unknown History lamotrigine 25 mg tablet 75 mg PO QAM 02/28/23 02/28/23 Unknown History lisinopril 20 mg tablet 20 mg PO DAILY 02/28/23 02/28/23 Unknown History oxcarbazepine 600 mg tablet 600 mg PO BID 02/28/23 02/28/23 Unknown History prochlorperazine maleate 5 mg 5 mg PO BID 02/28/23 02/28/23 Unknown History tablet sodium polystyrene sulfonate 15 g PO SUTUTHSA 02/28/23 02/28/23 Unknown History trazodone 50 mg tablet 50 mg PO BEDTIME 02/28/23 02/28/23 Unknown History Physical Exam Vital Signs: Vital Signs: Last Vital Signs Temp 98 F 03/01/23 07:18 Pulse 78 03/01/23 07:18 Resp 20 03/01/23 07:18 BP 132/71 03/01/23 07:18 Pulse Ox 97 03/01/23 07:18 O2 Del Method Nasal Cannula 03/01/23 07:18 O2 Flow Rate 4 03/01/23 07:18 BMI result Body Mass Index 22.2 Const: General: cooperative, comfortable, alert, awake and anxious Nutritional Appearance: thin Orientation/consciousness: patient oriented x3 HEENT: Head: Yes normocephalic and Yes atraumatic Neck: Neck: Yes trachea midline, Yes supple and Yes JVD Resp: Effort & Inspection: normal respiratory effort Auscultation: breath sounds absent on th left (base) Cardio: Jugular venous distension: no JVD Palpation: normal PMI Rate: regular rate Rhythm: regular rhythm Heart sounds: S1 normal heart sound present, S2 normal heart sound present, no click, no gallops and no rubs GI: Auscultation: normal bowel sounds Skin: General skin exam: no rashes or lesions noted Neuro: General: patient oriented x3 and no focal motor deficits Extrem: General: Yes no clubbing, cyanosis or edema Objective Labs and Meds 03/01/23 06:00 03/01/23 06:00 Lab results: Laboratory Results - last 24 hr 02/28/23 02/28/23 02/28/23 16:56 16:57 16:57 WBC 10.5 RBC 3.32 L Hgb 10.6 L Hct 31.9 L MCV 96.1 MCH 31.9 MCHC 33.2 RDW 12.9 Plt Count 362 D MPV 9.0 L Immature Gran % (Auto) 0.4 Neut % (Auto) 86.8 H Lymph % (Auto) 4.4 L Door % (Auto) 7.0 Eos % (Auto) 0.8 Baso % (Auto) 0.6 Lymph # (Auto) 0.5 L Door # (Auto) 0.7 Eos # (Auto) 0.1 Baso # (Auto) 0.1 Abs Immat Gran (auto) 0.04 H Absolute Neuts (auto) 9.1 H Absolute Nucleated RBC 0.000 Nucleated RBC % (auto) 0.0 PT 20.2 H INR 1.7 H Sodium 136 Potassium 4.5 Chloride 91 L Carbon Dioxide 31 H Anion Gap 19 BUN 19 H Creatinine 4.22 H* Estim Creat Clear Calc 15.6 Estimated GFR 14 Random Glucose 116 H Lactic Acid Calcium 10.1 D Total Bilirubin 0.6 AST 29 ALT 41 H Alkaline Phosphatase 110 Lactate Dehydrogenase 290 H B-Natriuretic Peptide Total Protein 7.3 Albumin 4.0 TSH 1.31 Urine Color Urine Appearance Urine pH Ur Specific [place] Urine Protein Urine Glucose (UA) Urine Ketones Urine Blood Urine Nitrite Ur Leukocyte Esterase Urine RBC Urine WBC Ur Squamous Epith Cells Urine Bacteria Hyaline Casts Ethyl Alcohol < 10 Influenza Type A (PCR) Influenza Type B (PCR) RSV RNA Qual (PCR) SARS-CoV-2 RNA (RT-PCR) 02/28/23 02/28/23 02/28/23 16:57 16:57 16:57 WBC RBC Hgb Hct MCV MCH MCHC RDW Plt Count MPV Immature Gran % (Auto) Neut % (Auto) Lymph % (Auto) Door % (Auto) Eos % (Auto) Baso % (Auto) Lymph # (Auto) Door # (Auto) Eos # (Auto) Baso # (Auto) Abs Immat Gran (auto) Absolute Neuts (auto) Absolute Nucleated RBC Nucleated RBC % (auto) PT INR Sodium Potassium Chloride Carbon Dioxide Anion Gap BUN Creatinine Estim Creat Clear Calc Estimated GFR Random Glucose Lactic Acid 1.1 Calcium Total Bilirubin AST ALT Alkaline Phosphatase Lactate Dehydrogenase B-Natriuretic Peptide 860 H Total Protein Albumin TSH Urine Color Urine Appearance Urine pH Ur Specific [place] Urine Protein Urine Glucose (UA) Urine Ketones Urine Blood Urine Nitrite Ur Leukocyte Esterase Urine RBC Urine WBC Ur Squamous Epith Cells Urine Bacteria Hyaline Casts Ethyl Alcohol Influenza Type A (PCR) NEGATIVE Influenza Type B (PCR) NEGATIVE RSV RNA Qual (PCR) NEGATIVE SARS-CoV-2 RNA (RT-PCR) NEGATIVE 02/28/23 03/01/23 03/01/23 18:20 06:00 06:00 WBC 9.4 RBC 3.08 L Hgb 9.9 L Hct 29.7 L MCV 96.4 MCH 32.1 MCHC 33.3 RDW 13.1 Plt Count 344 MPV 9.0 L Immature Gran % (Auto) 0.4 Neut % (Auto) 78.2 H Lymph % (Auto) 9.9 L Door % (Auto) 9.0 Eos % (Auto) 1.8 Baso % (Auto) 0.7 Lymph # (Auto) 0.9 L Door # (Auto) 0.8 Eos # (Auto) 0.2 Baso # (Auto) 0.1 Abs Immat Gran (auto) 0.04 H Absolute Neuts (auto) 7.3 Absolute Nucleated RBC 0.000 Nucleated RBC % (auto) 0.0 PT INR Sodium 135 Potassium 5.3 H Chloride 94 L Carbon Dioxide 29 Anion Gap 17 BUN 31 H Creatinine 5.63 H* Estim Creat Clear Calc 11.7 Estimated GFR 10 Random Glucose 93 Lactic Acid Calcium 9.0 D Total Bilirubin AST ALT Alkaline Phosphatase Lactate Dehydrogenase B-Natriuretic Peptide Total Protein Albumin TSH Urine Color Yellow Urine Appearance Clear Urine pH >= 9.0 Ur Specific [place] 1.010 Urine Protein 100 (2+) H Urine Glucose (UA) Negative Urine Ketones Negative Urine Blood Negative Urine Nitrite Negative Ur Leukocyte Esterase Negative Urine RBC 0-2 Urine WBC 0-5 Ur Squamous Epith Cells 0-2 Urine Bacteria None Seen Hyaline Casts 0-2 Ethyl Alcohol Influenza Type A (PCR) Influenza Type B (PCR) RSV RNA Qual (PCR) SARS-CoV-2 RNA (RT-PCR) EKG yesterday showed atrial flutter with rapid ventricular response with variable conduction. Imaging Radiologist's impression: Impressions Chest X-Ray 02/28/23 18:44 IMPRESSION: Cardiomegaly with left lower lobe infiltrate/atelectasis/pleural effusion. Abdomen/Pelvis CT 02/28/23 18:55 IMPRESSION: * No acute imaging abnormalities in the abdomen or pelvis compared to 02/06/2023. * Persistent (and increased) pericardial effusion and new small bilateral pleural effusions with bibasilar atelectasis. * Polycystic renal disease. * Colonic diverticulosis without evidence of diverticulitis. * Small left inguinal hernia contains fat and short segment of bowel. No bowel obstruction. * Again noted is mild dilatation of the pancreatic duct, significance uncertain. There is no overt pancreatic head mass or ampullary lesion seen on this limited noncontrast exam, nor on the prior contrast-enhanced images from 02/06/2023. Assessment and Plan (1) Effusion, pericardium: Status: Acute Patient with small to moderate pericardial effusion without any hemodynamic compromise. Does not require pericardiocentesis at this point in time. Could be secondary to underlying baseline pericardial effusion which is small and now with his pneumonia appears to have inflammatory component to it. Consider anti-inflammatory therapy, can use colchicine if okay with Renal team and/or consider steroid therapy. Continue treat his pneumonia aggressively. Follow-up limited echocardiogram in 2 days to see if there is any further increase in the size and/or hemodynamic compromise that may require pericardiocentesis/pericardial window. There appears to be elevated filling pressures both on the left side as well as right-sided on the echocardiogram and consider hemodialysis to lower apns weight than his usual dry weight (2) Atrial flutter: Status: Acute Notice paroxysmal atrial flutter on presenting 12 lead EKG. Patient has no symptoms. Most likely related to his underlying pulmonary as well as pericardial inflammation. Start on metoprolol therapy. Continue full disclosure cardiac telemetry. Currently given that this was a limited event does not require oral anticoagulation therapy. Will continue to follow with you Time Spent With Patient Time: Total time managing care of this patient today ____ minutes. Procedures Date of Service Date of Service: 03/01/23
--- NOTE | 2023-03-01 10:43 | PC.NURSE ---
pt a/o x 4 no sob/ambar noted speaks in full sentences. lungs - nabila upper lobes and r lower- cta. left lower lobe is diminished. heart sounds - galloping. abd soft non-tender. bs + x 4. no edema noted. pt has an active fistula to l arm. + bruit to fistula. pt denies any pain/disc. pt aware of plan of care.
[2023-03-01] MEDS: Metoprolol Tartrate 25 MG TABLET PO ×2 (10:52→20:42)
--- NOTE | 2023-03-01 12:25 | PC.NURSE ---
Called report to Jaclyn MENDOZAsuperintendent transportation in room.
--- NOTE | 2023-03-01 12:34 | P.CONNP_ITS ---
History of Present Illness Reason for Consult Consult date: 03/01/23 Reason for consult: ESRD Chief Complaint Chief complaint: fever History of Present Illness Narrative: 73-year-old male with ESRD on hemodialysis Tuesday/Tuesday/Tuesday presented to the emergency department for evaluation of cough & fever.? Patient states he started feeling unwell on the day of presentation.? Reports fevers and chills.? Also has been having a cough.? Patient reports dyspnea, worse with exertion.? Denies orthopnea or PND.? Patient denies chest discomfort, palpitations, abdominal pain, changes in urinary or bowel habits.? He completed his hemodialysis session on the day of presentation.? In the emergency department, patient was found to be hypoxemic and imaging concerning for left-sided infiltrate. He was admitted for further management. Nephrology has been consulted to assist in his clinical care during his current hospital stay Review of Systems Review of Systems Yes all other systems are reviewed and are negative PMFSH Past Medical History Medical History AV fistula Chronic kidney 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 Essential hypertension Mood disorder Nicotine dependence, cigarettes, uncomplicated Surgical History Surgical History History of colonoscopy History of hernia repair History of parathyroidectomy Social History Social History Alcohol intake: never Meds Allergies Allergy/AdvReac Type Severity Reaction Status Date / Time bupropion [From WELLBUTRIN] AdvReac Unknown CONSTIPATIO Verified 02/06/23 07:18 N NSAIDS (Non-Steroidal AdvReac Unknown RENAL Verified 02/06/23 07:18 Anti-Inflamma [NSAIDS (NON-STEROIDAL ANTI-INFLAMMA] [id number] Reductase AdvReac Unknown UNK Verified 02/06/23 07:18 Inhibitor [[id number] REDUCTASE INHIBITOR] Active Medications: Current Medications Acetaminophen (Acetaminophen 325 Mg Tablet) 650 mg PO Q6H PRN PRN Reason: Pain, Mild (Pain Scale 1-3) Ascorbic Acid (Ascorbic Acid 500 Mg Tablet) 500 mg PO DAILY [facility] Last Admin: 03/01/23 09:59 Dose: 500 mg Clonazepam (Clonazepam 1 Mg Tablet) 1 mg PO TID [facility] Last Admin: 03/01/23 09:59 Dose: 1 mg Cyanocobalamin (Cyanocobalamin (Vitamin B-12) 1,000 Mcg Tablet) 1,000 mcg PO DAILY [facility] Last Admin: 03/01/23 09:59 Dose: 1,000 mcg Ergocalciferol (Ergocalciferol (Vitamin D2) 1,250 Mcg Capsule) 1,250 mcg PO QMONTH [facility] Furosemide (Furosemide 40 Mg Tablet) 80 mg PO SuTuThSa@0900 [facility]; Protocol Last Admin: 03/01/23 09:58 Dose: 80 mg Heparin Sodium (Porcine) (Heparin Sodium,Porcine 5,000 Unit/Ml Vial) 5,000 unit SUBCUT Q12H [facility] Last Admin: 03/01/23 09:59 Dose: 5,000 unit Ceftriaxone Sodium 1 gm/ (Sodium Chloride) 50 mls @ 100 mls/hr IV Q24H [facility] Azithromycin 500 mg/ Sodium (Chloride) 250 mls @ 125 mls/hr IV Q24H [facility] Last Infusion: 03/01/23 01:51 Dose: Infused Lamotrigine (Lamotrigine 25 Mg Tablet) 75 mg PO DAILY [facility] Last Admin: 03/01/23 09:58 Dose: 75 mg Melatonin (Melatonin 3 Mg Tablet) 6 mg PO BEDTIME PRN PRN Reason: Insomnia Metoprolol Tartrate (Metoprolol Tartrate 25 Mg Tablet) 25 mg PO BID [facility]; Protoc ol Last Admin: 03/01/23 10:52 Dose: 25 mg Ondansetron HCl (Ondansetron Hcl 4 Mg/2 Ml Vial) 4 mg IVPUSH Q8H PRN PRN Reason: Nausea and Vomiting Oxcarbazepine (Oxcarbazepine 300 Mg Tablet) 600 mg PO BID [facility] Last Admin: 03/01/23 10:03 Dose: 600 mg Pharmacy Consult (Consult Rx Perform Med Rec) 1 each MISCELLANE ONCE PRN PRN Reason: Consult order Prochlorperazine Maleate (Prochlorperazine Maleate 5 Mg Tablet) 5 mg PO BID [facility] Last Admin: 03/01/23 10:03 Dose: 5 mg Sodium Chloride (0.9 % Sodium Chloride Flush 3 Ml Syringe) 3 ml IVFLUSH QSHIFT [facility] Last Admin: 03/01/23 09:59 Dose: 3 ml Sodium Polystyrene Sulfonate (Sodium Polystyrene Sulfon/Sorb 15 Gm/60 Ml Oral.Susp) 15 gm PO SuTuThSa@0900 [facility] Last Admin: 03/01/23 10:00 Dose: 15 gm Trazodone HCl (Trazodone Hcl 50 Mg Tablet) 50 mg PO BEDTIME [facility] Home Medications Medication Instructions Recorded Confirmed Last Taken Type ascorbic acid (vitamin C) 500 mg 500 mg PO DAILY 02/28/23 02/28/23 Unknown History tablet clonazepam 1 mg tablet 1 mg PO TID 02/28/23 02/28/23 Unknown History cyanocobalamin (vitamin B-12) 1,000 mcg PO DAILY 02/28/23 02/28/23 Unknown History 1,000 mcg tablet ergocalciferol (vitamin D2) 1,250 1,250 mcg PO QMONTH 02/28/23 02/28/23 Unknown History mcg (50,000 unit) capsule furosemide 80 mg tablet 80 mg PO SUTUTHSA 02/28/23 02/28/23 Unknown History lamotrigine 25 mg tablet 75 mg PO QAM 02/28/23 02/28/23 Unknown History lisinopril 20 mg tablet 20 mg PO DAILY 02/28/23 02/28/23 Unknown History oxcarbazepine 600 mg tablet 600 mg PO BID 02/28/23 02/28/23 Unknown History prochlorperazine maleate 5 mg 5 mg PO BID 02/28/23 02/28/23 Unknown History tablet sodium polystyrene sulfonate 15 g PO SUTUTHSA 02/28/23 02/28/23 Unknown History trazodone 50 mg tablet 50 mg PO BEDTIME 02/28/23 02/28/23 Unknown History Physical Exam Vital Signs: Last Vital Signs Temp 99.8 F 03/01/23 10:00 Pulse 75 03/01/23 10:00 Resp 18 03/01/23 10:00 BP 139/69 03/01/23 10:00 Pulse Ox 100 03/01/23 10:00 O2 Del Method Nasal Cannula 03/01/23 10:00 O2 Flow Rate 4 03/01/23 10:00 BMI result Body Mass Index 22.2 Const General: no acute distress Orientation/consciousness: patient oriented x3 Eyes EOM: EOMs intact bilaterally Resp Auscultation: diminished lung sounds Cardio Rate: regular rate GI Palpation (GI): Soft to palpation Neuro General: patient oriented x3 Results Lab Results 03/01/23 06:00 03/01/23 06:00 Lab results: Chemistry 02/28/23 03/01/23 16:57 06:00 Sodium 136 135 Potassium 4.5 5.3 H Carbon Dioxide 31 H 29 BUN 19 H 31 H Creatinine 4.22 H* 5.63 H* Calcium 10.1 D 9.0 D Hematology 02/28/23 03/01/23 16:57 06:00 WBC 10.5 9.4 Hgb 10.6 L 9.9 L Plt Count 362 D 344 Urinalysis 02/28/23 18:20 Urine Color Yellow Urine Appearance Clear Urine pH >= 9.0 Ur Specific [place] 1.010 Urine Protein 100 (2+) H Urine Glucose (UA) Negative Urine Ketones Negative Urine Blood Negative Urine Nitrite Negative Ur Leukocyte Esterase Negative Urine RBC 0-2 Urine WBC 0-5 Ur Squamous Epith Cells 0-2 Hyaline Casts 0-2 Assessment and Plan (1) Chronic kidney 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: Status: Acute Time Spent With Patient Time: Usually gets HD on MWF Has a functioning HD access Renal Diet; Phos binders with meals Continued volume optimization on HD Next HD tomorrow( HD RN aware) Shall continue to closely follow up Procedures Date of Service Date of Service: 03/01/23
--- NOTE | 2023-03-01 14:42 | MHC.CM.PN ---
CM met with Patient at bedside and addressed IMM with him, providing Patient with the original and placing a copy on the chart. Patient lives alone in an apartment and he uses a cane to assist with mobility. Patient receives his HD @ [facility] M/W/F and home/resume said service is the goal. CM has initiated and will follow for dc planning. PCP is Dr. Gerald Davis and Patient's Ex-/Lenora is the HCP.
--- NOTE | 2023-03-01 15:05 | HO.PM.IMPN ---
Subjective Subjective Date of Service: 03/01/23 Interval History: Seen and evaluated this morning Sitting comfortable in bed report weakness and dyspnea No fever or chills Heart converted back to sinus Review of Systems Review of Systems: Yes all other systems are reviewed and are negative Physical Exam Vital Signs: Vital Signs: Last Vital Signs Temp 98.0 F 03/01/23 12:39 Pulse 75 03/01/23 12:39 Resp 16 03/01/23 12:39 BP 158/74 H 03/01/23 12:39 Pulse Ox 95 03/01/23 12:39 O2 Del Method Room Air 03/01/23 12:39 O2 Flow Rate 4 03/01/23 10:00 BMI result Body Mass Index 21.4 Const: Other: Constitutional : Awake, interactive, not in distress Neck : Normal inspection, Supple Cardiovascular : RRR, no JVP, no lower extremity edema Respiratory :fair bilateral air entry, basal fine crackles Gastrointestinal: soft, lax, Normal bowel sounds, Non tender Skin : Warm, Dry Neurological : Alert & oriented x3, No focal deficit Objective Data Active Medications Acetaminophen (Acetaminophen 325 Mg Tablet) 650 mg PO Q6H PRN PRN Reason: Pain, Mild (Pain Scale 1-3) Ascorbic Acid (Ascorbic Acid 500 Mg Tablet) 500 mg PO DAILY [facility] Last Admin: 03/01/23 09:59 Dose: 500 mg Documented By: KENZIE Clonazepam (Clonazepam 1 Mg Tablet) 1 mg PO TID@0600,1200,2100 [facility] Last Admin: 03/01/23 14:35 Dose: 1 mg Documented By: YVONNE Cyanocobalamin (Cyanocobalamin (Vitamin B-12) 1,000 Mcg Tablet) 1,000 mcg PO DAILY [facility] Last Admin: 03/01/23 09:59 Dose: 1,000 mcg Documented By: KENZIE Ergocalciferol (Ergocalciferol (Vitamin D2) 1,250 Mcg Capsule) 1,250 mcg PO QMONTH [facility] Furosemide (Furosemide 40 Mg Tablet) 80 mg PO SuTuThSa@0900 [facility]; Protocol Last Admin: 03/01/23 09:58 Dose: 80 mg Documented By: KENZIE Heparin Sodium (Porcine) (Heparin Sodium,Porcine 5,000 Unit/Ml Vial) 5,000 unit SUBCUT Q12H [facility] Last Admin: 03/01/23 09:59 Dose: 5,000 unit Documented By: KENZEI Ceftriaxone Sodium 1 gm/ (Sodium Chloride) 50 mls @ 100 mls/hr IV Q24H [facility] Azithromycin 500 mg/ Sodium (Chloride) 250 mls @ 125 mls/hr IV Q24H [facility] Last Infusion: 03/01/23 01:51 Dose: 0 mls/hr Documented By: MARITZA-PARRC Lamotrigine (Lamotrigine 25 Mg Tablet) 75 mg PO DAILY [facility] Last Admin: 03/01/23 09:58 Dose: 75 mg Documented By: KENZIE Lidocaine HCl (Lidocaine Hcl 1 % Mpf 2 Ml Vial) 0.5 ml SUBCUT MOWEFR@1645 [facility] Melatonin (Melatonin 3 Mg Tablet) 6 mg PO BEDTIME PRN PRN Reason: Insomnia Metoprolol Tartrate (Metoprolol Tartrate 25 Mg Tablet) 25 mg PO BID [facility]; Protocol Last Admin: 03/01/23 10:52 Dose: 25 mg Documented By: KENZIE Ondansetron HCl (Ondansetron Hcl 4 Mg/2 Ml Vial) 4 mg IVPUSH Q8H PRN PRN Reason: Nausea and Vomiting Oxcarbazepine (Oxcarbazepine 300 Mg Tablet) 600 mg PO BID [facility] Last Admin: 03/01/23 10:03 Dose: 600 mg Documented By: KENZIE Pharmacy Consult (Consult Rx Perform Med Rec) 1 each MISCELLANE ONCE PRN PRN Reason: Consult order Prochlorperazine Maleate (Prochlorperazine Maleate 5 Mg Tablet) 5 mg PO BID [facility] Last Admin: 03/01/23 10:03 Dose: 5 mg Documented By: KENZIE Sodium Chloride (0.9 % Sodium Chloride Flush 3 Ml Syringe) 3 ml IVFLUSH QSHIFT [facility] Last Admin: 03/01/23 09:59 Dose: 3 ml Documented By: KENZIE Sodium Polystyrene Sulfonate (Sodium Polystyrene Sulfon/Sorb 15 Gm/60 Ml Oral.Susp) 15 gm PO SuTuThSa@0900 [facility] Last Admin: 03/01/23 10:00 Dose: 15 gm Documented By: KENZIE Trazodone HCl (Trazodone Hcl 50 Mg Tablet) 50 mg PO BEDTIME [facility] Labs 03/01/23 06:00 03/01/23 06:00 Labs: Laboratory Results - last 24 hr 08/14/23 08/14/23 08/14/23 16:56 16:57 16:57 MCV 96.1 MCH 31.9 MCHC 33.2 RDW 12.9 Plt Count 362 D MPV 9.0 L Immature Gran % (Auto) 0.4 Neut % (Auto) 86.8 H Lymph % (Auto) 4.4 L [place] % (Auto) 7.0 Eos % (Auto) 0.8 Baso % (Auto) 0.6 Lymph # (Auto) 0.5 L [place] # (Auto) 0.7 Eos # (Auto) 0.1 Baso # (Auto) 0.1 Abs Immat Gran (auto) 0.04 H Absolute Neuts (auto) 9.1 H Absolute Nucleated RBC 0.000 Nucleated RBC % (auto) 0.0 PT 20.2 H INR 1.7 H Anion Gap 19 Estim Creat Clear Calc 15.6 Estimated GFR 14 Random Glucose 116 H Lactic Acid Calcium 10.1 D Total Bilirubin 0.6 AST 29 ALT 41 H Alkaline Phosphatase 110 Lactate Dehydrogenase 290 H B-Natriuretic Peptide Total Protein 7.3 Albumin 4.0 TSH 1.31 Urine Color Urine Appearance Urine pH Ur Specific [place] Urine Protein Urine Glucose (UA) Urine Ketones Urine Blood Urine Nitrite Ur Leukocyte Esterase Urine RBC Urine WBC Ur Squamous Epith Cells Urine Bacteria Hyaline Casts Ethyl Alcohol < 10 Influenza Type A (PCR) Influenza Type B (PCR) RSV RNA Qual (PCR) SARS-CoV-2 RNA (RT-PCR) 02/28/23 02/28/23 02/28/23 16:57 16:57 16:57 MCV MCH MCHC RDW Plt Count MPV Immature Gran % (Auto) Neut % (Auto) Lymph % (Auto) [place] % (Auto) Eos % (Auto) Baso % (Auto) Lymph # (Auto) [place] # (Auto) Eos # (Auto) Baso # (Auto) Abs Immat Gran (auto) Absolute Neuts (auto) Absolute Nucleated RBC Nucleated RBC % (auto) PT INR Anion Gap Estim Creat Clear Calc Estimated GFR Random Glucose Lactic Acid 1.1 Calcium Total Bilirubin AST ALT Alkaline Phosphatase Lactate Dehydrogenase B-Natriuretic Peptide 860 H Total Protein Albumin TSH Urine Color Urine Appearance Urine pH Ur Specific [place] Urine Protein Urine Glucose (UA) Urine Ketones Urine Blood Urine Nitrite Ur Leukocyte Esterase Urine RBC Urine WBC Ur Squamous Epith Cells Urine Bacteria Hyaline Casts Ethyl Alcohol Influenza Type A (PCR) NEGATIVE Influenza Type B (PCR) NEGATIVE RSV RNA Qual (PCR) NEGATIVE SARS-CoV-2 RNA (RT-PCR) NEGATIVE 02/28/23 03/01/23 03/01/23 18:20 06:00 06:00 MCV 96.4 MCH 32.1 MCHC 33.3 RDW 13.1 Plt Count 344 MPV 9.0 L Immature Gran % (Auto) 0.4 Neut % (Auto) 78.2 H Lymph % (Auto) 9.9 L [place] % (Auto) 9.0 Eos % (Auto) 1.8 Baso % (Auto) 0.7 Lymph # (Auto) 0.9 L [place] # (Auto) 0.8 Eos # (Auto) 0.2 Baso # (Auto) 0.1 Abs Immat Gran (auto) 0.04 H Absolute Neuts (auto) 7.3 Absolute Nucleated RBC 0.000 Nucleated RBC % (auto) 0.0 PT INR Anion Gap 17 Estim Creat Clear Calc 11.7 Estimated GFR 10 Random Glucose 93 Lactic Acid Calcium 9.0 D Total Bilirubin AST ALT Alkaline Phosphatase Lactate Dehydrogenase B-Natriuretic Peptide Total Protein Albumin TSH Urine Color Yellow Urine Appearance Clear Urine pH >= 9.0 Ur Specific [place] 1.010 Urine Protein 100 (2+) H Urine Glucose (UA) Negative Urine Ketones Negative Urine Blood Negative Urine Nitrite Negative Ur Leukocyte Esterase Negative Urine RBC 0-2 Urine WBC 0-5 Ur Squamous Epith Cells 0-2 Urine Bacteria None Seen Hyaline Casts 0-2 Ethyl Alcohol Influenza Type A (PCR) Influenza Type B (PCR) RSV RNA Qual (PCR) SARS-CoV-2 RNA (RT-PCR) Assessment and Plan (1) Atrial flutter: Status: Acute (2) Pneumonia: Status: Acute (3) Effusion, pericardium: Status: Acute (4) Sepsis: Status: Acute Plan This is a 73-year-old male with pertinent history of ESRD on hemodialysis Tuesday/Tuesday/Tuesday, mood disorder, essential hypertension presents to the emergency department for evaluation of cough, fever. Acute hypoxemic respiratory failure and Sepsis due to left-sided pneumonia.? Wean down supplemental oxygen Pending blood culture.? IV empiric antibiotics Sputum culture pending ESRD Hd MWD, Nephrology following? Essential hypertension Resume home meds as appropriate Atrial flutter with RVR converted back to sinus rhythm Normal TSH Cardiology input appreciated, no need for AC now Pericardial effusion noted on imaging Echo showing small to moderate effusion thoracic surgery consulted Cardio rec Follow-up limited echocardiogram in 2 days and suggest Steroids\Colchicine for treatment Anemia of chronic kidney disease monitor Mood disorder Continue home mood stabilizers DVT prophylaxis Heparin Patient will need overnight hospital stay for treatment of pneumonia and monitoring pericardial effusion ? Time Spent With Patient Time: Total time managing care of this patient today ____ minutes. Quality Stroke Does the patient have a stroke diagnosis?: No VTE Prior VTE?: No VTE Risk Level:: Medical - moderate - high VTE Device Contraindication: Treatment Not Indicated VTE Drug Contraindication: N/A - Med Ordered
[2023-03-01] MEDS: traZODone HCL 50 MG TABLET PO (20:42)
[2023-03-01] MEDS: cefTRIAXone sodium 1 GM in 0.9 % Sodium Chloride 50 ML IV (20:42)
[2023-03-01] MEDS: Acetaminophen 325 MG TABLET 650 MG PO (20:42)
[2023-03-01] MEDS: Azithromycin 500 MG in 0.9 % Sodium Chloride 250 ML 125 MG IV (22:27)
[2023-03-02] MEDS: Melatonin 3 MG TABLET 6 MG PO (00:20)
[2023-03-02] MEDS: Benzonatate 100 MG CAPSULE 200 MG PO (00:21)
[2023-03-02] MEDS: 0.9 % Sodium Chloride Flush 3 ML SYRINGE IVFLUSH ×4 (00:45→23:48)
[2023-03-02 04:00] VITALS: BP 143/71; PULSE 78; RESP 18; TEMP 37.1; O2SAT 93
[2023-03-02] MEDS: clonazePAM 1 MG TABLET PO ×3 (05:48→20:31)
--- NOTE | 2023-03-02 07:00 | CA_ITS ---
Transthoracic Echocardiogram Patient (Last, First, Middle): Igor May, Gender: Male Date of : 1950 Age: 73 Procedure Date: 03/02/2023 Procedure Type: Transthoracic Echocardiogram Location: [facility] Height: 180.34 cm Weight: 69.4 kg BSA: 1.88 m2 Heart Rate: bpm BP: 120 / 65 mmHg Survey Questionnaire Designer: Referring MD: Kenny Bowden MD Logger All Round: Kenny Bowden MD Symptoms: follow-up pericardial effusion Study Quality: Adequate/Limited Echo ECG Rhythm: Occasional PVCs Conclusions: - Small to moderate size pericardial effusion without clear tamponade physiology Findings Left Ventricle Normal left ventricular cavity size. There is normal left ventricular wall thickness. The left ventricular systolic function is mildly decreased. The visually estimated ejection fraction is between 45-50%. Venous The inferior vena cava is normal in size and collapses greater than 50% with inspiration. Pericardium/Pleural There is a circumferential pericardial effusion. No discernable variation of the mitral valve and tricuspid valve Doppler velocities with respiration. Small to moderate size pericardial effusion without tamponade Prior Study Comparison No significant change compared to prior study dated: 03/01/2023. Measurements 2D Linear Measurements IVSd: 1.15 0.6-0.9/0.6-1.0 cm LVIDd: 5.02 3.9-5.3/4.2-5.9 cm LVIDd Index: 2.67 2.4-3.2/2.2-3.1 cm/m2 LVIDs: 3.39 2.0-3.6 cm LVPWd: 1.03 0.7-1.1 cm LV Mass: 256.61 67-162/88-224 g LV Mass Index: 136.50 43-95/49-115 g/m2 Tricuspid Valve TR Pk Bradford: 2.89 TR Pk Grad: 33.00 Updated in Other Vendor System with Status of Final Kenny Bowden MD electronically signed on 03/02/2023 3:21:38 PM with status of Final
[2023-03-02 07:11] LABS: Hematocrit 30.6 % (42.0-52.0); Mean Corpuscular HGB Conc 32.7 g/dl (31.0-36.0); Mean Corpuscular Hemoglobin 31.7 pg (27.0-33.0); Mean Corpuscular Volume 97.1 fL (80.0-98.0); Mean Platelet Volume 9.3 fL (9.4-12.4); Platelet Count 349 X10*3/uL (160-400); Red Blood Count 3.15 X10*6/uL (4.60-5.80); White Blood Count 10.4 X10*3/uL (4.8-10.8)
[2023-03-02 07:43] VITALS: BP 120/65; PULSE 71; RESP 17; TEMP 37.1; O2SAT 94
[2023-03-02] MEDS: lamoTRIgine 25 MG TABLET 75 MG PO (08:32)
[2023-03-02] MEDS: Ascorbic Acid 500 MG TABLET PO (08:33)
[2023-03-02] MEDS: Metoprolol Tartrate 25 MG TABLET PO ×2 (08:33→20:28)
[2023-03-02] MEDS: OXcarbazepine 300 MG TABLET 600 MG PO ×2 (08:33→20:28)
[2023-03-02] MEDS: Prochlorperazine Maleate 5 MG TABLET PO ×2 (08:33→20:28)
[2023-03-02] MEDS: Cyanocobalamin (Vitamin B-12) 1,000 MCG TABLET 1000 MCG PO (08:33)
--- NOTE | 2023-03-02 09:52 | PM.PNCARD ---
Subjective Subjective Date of Service: 03/02/23 Principal diagnosis: paroxysmal atrial flutter, pericardial effusion Interval history: patient complains of no cardiac symptoms. Denies palpitations. Denies lightheadedness. Currently undergoing dialysis at 1 blood pressure reading was systolic 89. Subsequent systolic blood pressure reading was 123. Review of Systems Review of Systems Yes all other systems are reviewed and are negative Physical Exam Vital Signs: Last Vital Signs Temp 98.7 F 03/02/23 07:43 Pulse 71 03/02/23 07:43 Resp 17 03/02/23 07:43 BP 120/65 03/02/23 07:43 Pulse Ox 94 03/02/23 07:43 O2 Del Method Nasal Cannula 03/02/23 07:43 O2 Flow Rate 2 03/02/23 07:43 BMI result Body Mass Index 21.4 Const General: cooperative, comfortable, alert, awake and anxious Nutritional Appearance: thin Orientation/consciousness: patient oriented x3 Neck Neck: Yes trachea midline, Yes supple and Yes JVD Resp Effort & Inspection: normal respiratory effort Auscultation: breath sounds absent on th left (base) Cardio Jugular venous distension: no JVD Palpation: normal PMI Rate: regular rate Rhythm: regular rhythm Heart sounds: S1 normal heart sound present, S2 normal heart sound present, no click, no gallops and no rubs GI Auscultation: normal bowel sounds Skin General skin exam: no rashes or lesions noted Neuro General: patient oriented x3 and no focal motor deficits Extrem General: Yes no clubbing, cyanosis or edema Objective Labs and Meds 03/02/23 06:44 03/01/23 06:00 Lab results: Laboratory Results - last 24 hr 03/02/23 06:44 WBC 10.4 RBC 3.15 L Hgb 10.0 L Hct 30.6 L MCV 97.1 MCH 31.7 MCHC 32.7 RDW 13.0 Plt Count 349 MPV 9.3 L Absolute Nucleated RBC 0.000 Nucleated RBC % (auto) 0.0 Progress Note: A&P Assessment and plan (1) Atrial flutter: Status: Acute Assessment and Plan: paroxysmal atrial flutter with no clinical recurrence. This was transient and with no clinical recurrence. Most likely related to acute pulmonary issues. Continue metoprolol therapy. No indication for oral anticoagulation therapy at this point in time (2) Effusion, pericardium: Status: Acute Assessment and Plan: pericardial effusion which is small to moderate. There is no echo evidence from yesterday of cardiac tamponade. Although the suggestion of elevated filling pressures. Needs further dialysis to remove fluid to avoid heart failure issues. However if dialysis cannot be pursued aggressively with hypotension may need consideration of pericardial drainage. Will follow-up echocardiogram tomorrow again to see if there is any further increase in size is pericardial effusion. Will decide at that point time of anti inflammatory therapy is recommended. Will follow with you Time Spent With Patient Time: Total time managing care of this patient today ____ minutes. Progress Note: Quality Stroke Does the patient have a stroke diagnosis?: No Procedures Date of Service Date of Service: 03/02/23
--- NOTE | 2023-03-02 10:53 | PM.PNNEP ---
Subjective Subjective Date of Service: 03/02/23 Principal diagnosis: paroxysmal atrial flutter, pericardial effusion Interval history: Currently on HD. Tolerating HD well. D/W HD RN Physical Exam Vital Signs: Vital Signs: Last Vital Signs Temp 98.7 F 03/02/23 07:43 Pulse 71 03/02/23 07:43 Resp 17 03/02/23 07:43 BP 120/65 03/02/23 07:43 Pulse Ox 94 03/02/23 07:43 O2 Del Method Nasal Cannula 03/02/23 07:43 O2 Flow Rate 2 03/02/23 07:43 BMI result Body Mass Index 21.4 Const: General: no acute distress Eyes: EOM: EOMs intact bilaterally Resp: Auscultation: diminished lung sounds Cardio: Rate: regular rate GI: Palpation (GI): Soft to palpation Neuro: General: moves all extremities Objective Data Labs 03/02/23 06:44 03/01/23 06:00 Labs: Laboratory Results - last 24 hr 03/02/23 06:44 WBC 10.4 RBC 3.15 L Hgb 10.0 L Hct 30.6 L MCV 97.1 MCH 31.7 MCHC 32.7 RDW 13.0 Plt Count 349 MPV 9.3 L Absolute Nucleated RBC 0.000 Nucleated RBC % (auto) 0.0 Microbiology Microbiology Results: Microbiology 02/28/23 17:07 Blood - Venous Blood Culture - Preliminary No growth after 24 hours. 02/28/23 17:07 Blood - Venous Blood Culture - Preliminary No growth after 24 hours. Procedures Date of Service Date of Service: 03/02/23 Assessment & Plan Assessment and plan (1) Chronic kidney 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: Status: Acute Assessment and Plan: Usually gets HD on MWF-Seen on HD Has a functioning HD access Renal Diet; Phos binders with meals Continued volume optimization on HD Shall continue to closely follow up Progress Note: Quality Stroke Does the patient have a stroke diagnosis?: No
--- NOTE | 2023-03-02 13:02 | P.PNIM_ITS ---
Subjective Subjective Date of Service: 03/02/23 Interval History: Seen and evaluated this morning doing dialysis in sinus rhythm improved weakness and dyspnea No fever or chills Review of Systems Review of Systems: Yes all other systems are reviewed and are negative Physical Exam Vital Signs: Vital Signs: Last Vital Signs Temp 98.7 F 03/02/23 07:43 Pulse 71 03/02/23 07:43 Resp 17 03/02/23 07:43 BP 120/65 03/02/23 07:43 Pulse Ox 94 03/02/23 07:43 O2 Del Method Nasal Cannula 03/02/23 07:43 O2 Flow Rate 2 03/02/23 07:43 BMI result Body Mass Index 21.4 Const: Other: Constitutional : Awake, interactive, not in distress Neck : Normal inspection, Supple Cardiovascular : RRR, no JVP, no lower extremity edema Respiratory :fair bilateral air entry, basal fine crackles Gastrointestinal: soft, lax, Normal bowel sounds, Non tender Skin : Warm, Dry, clean fistula Neurological : Alert & oriented x3, No focal deficit Objective Data Active Medications Acetaminophen (Acetaminophen 325 Mg Tablet) 650 mg PO Q6H PRN PRN Reason: Pain, Mild (Pain Scale 1-3) Last Admin: 03/01/23 20:42 Dose: 650 mg Documented By: JAZZ Ascorbic Acid (Ascorbic Acid 500 Mg Tablet) 500 mg PO DAILY [facility] Last Admin: 03/02/23 08:33 Dose: 500 mg Documented By: HIGINIO Benzonatate (Benzonatate 100 Mg Capsule) 200 mg PO TID PRN PRN Reason: Cough Last Admin: 03/02/23 00:21 Dose: 200 mg Documented By: JAZZ Clonazepam (Clonazepam 1 Mg Tablet) 1 mg PO TID@0600,1200,2100 [facility] Last Admin: 03/02/23 05:48 Dose: 1 mg Documented By: JAZZ Cyanocobalamin (Cyanocobalamin (Vitamin B-12) 1,000 Mcg Tablet) 1,000 mcg PO DAILY [facility] Last Admin: 03/02/23 08:33 Dose: 1,000 mcg Documented By: HIGINIO Ergocalciferol (Ergocalciferol (Vitamin D2) 1,250 Mcg Capsule) 1,250 mcg PO QMONTH [facility] Furosemide (Furosemide 40 Mg Tablet) 80 mg PO SuTuThSa@0900 [facility]; Protocol Last Admin: 03/01/23 09:58 Dose: 80 mg Documented By: KENZIE Heparin Sodium (Porcine) (Heparin Sodium,Porcine 5,000 Unit/Ml Vial) 5,000 unit SUBCUT Q12H [facility] Last Admin: 03/02/23 08:31 Dose: Not Given Documented By: HIGINIO Non-Admin Reason: Patient Refused Ceftriaxone Sodium 1 gm/ (Sodium Chloride) 50 mls @ 100 mls/hr IV Q24H [facility] Last Infusion: 03/01/23 21:42 Dose: 0 mls/hr Documented By: ARNEL Azithromycin 500 mg/ Sodium (Chloride) 250 mls @ 125 mls/hr IV Q24H [facility] Last Infusion: 03/02/23 01:08 Dose: 0 mls/hr Documented By: ARNEL Lamotrigine (Lamotrigine 25 Mg Tablet) 75 mg PO DAILY [facility] Last Admin: 03/02/23 08:32 Dose: 75 mg Documented By: HIGINIO Lidocaine HCl (Lidocaine Hcl 1 % Mpf 2 Ml Vial) 0.5 ml SUBCUT MOWEFR@1645 [facility] Melatonin (Melatonin 3 Mg Tablet) 6 mg PO BEDTIME PRN PRN Reason: Insomnia Last Admin: 03/02/23 00:20 Dose: 6 mg Documented By: JAZZ Metoprolol Tartrate (Metoprolol Tartrate 25 Mg Tablet) 25 mg PO BID [facility]; Protocol Last Admin: 03/02/23 08:33 Dose: 25 mg Documented By: HIGINIO Ondansetron HCl (Ondansetron Hcl 4 Mg/2 Ml Vial) 4 mg IVPUSH Q8H PRN PRN Reason: Nausea and Vomiting Oxcarbazepine (Oxcarbazepine 300 Mg Tablet) 600 mg PO BID [facility] Last Admin: 03/02/23 08:33 Dose: 600 mg Documented By: HIGINIO Pharmacy Consult (Consult Rx Perform Med Rec) 1 each MISCELLANE ONCE PRN PRN Reason: Consult order Prochlorperazine Maleate (Prochlorperazine Maleate 5 Mg Tablet) 5 mg PO BID [facility] Last Admin: 03/02/23 08:33 Dose: 5 mg Documented By: HIGINIO Sodium Chloride (0.9 % Sodium Chloride Flush 3 Ml Syringe) 3 ml IVFLUSH QSHIFT [facility] Last Admin: 03/02/23 08:32 Dose: 3 ml Documented By: RIOSCEL Sodium Polystyrene Sulfonate (Sodium Polystyrene Sulfon/Sorb 15 Gm/60 Ml Oral. Susp) 15 gm PO SuTuThSa@0900 [facility] Last Admin: 03/01/23 10:00 Dose: 15 gm Documented By: SCOC Trazodone HCl (Trazodone Hcl 50 Mg Tablet) 50 mg PO BEDTIME [facility] Last Admin: 03/01/23 20:42 Dose: 50 mg Documented By: WILLIAC Labs 03/02/23 06:44 03/01/23 06:00 Labs: Laboratory Results - last 24 hr 03/02/23 06:44 MCV 97.1 MCH 31.7 MCHC 32.7 RDW 13.0 Plt Count 349 MPV 9.3 L Absolute Nucleated RBC 0.000 Nucleated RBC % (auto) 0.0 Microbiology Microbiology Results: Microbiology 02/28/23 17:07 Blood Culture - Preliminary Blood - Venous No growth after 24 hours. 02/28/23 17:07 Blood Culture - Preliminary Blood - Venous No growth after 24 hours. Assessment and Plan (1) Effusion, pericardium: Status: Acute (2) Pneumonia: Status: Acute (3) Atrial flutter: Status: Acute Plan This is a 73-year-old male with pertinent history of ESRD on hemodialysis Tuesday/Tuesday/Tuesday, mood disorder, essential hypertension presents to the emergency department for evaluation of cough, fever. Pericardial effusion noted on imaging Echo showing small to moderate effusion thoracic surgery consulted Cardio rec Follow-up limited echocardiogram tomorrow and decide surgical vs medical approach w Steroids Acute hypoxemic respiratory failure and Sepsis due to left-sided pneumonia.? Wean down supplemental oxygen Pending blood culture.? Continue IV antibiotics Sputum culture pending ESRD Hd MWD, Nephrology following? Essential hypertension Resume home meds as appropriate Atrial flutter with RVR converted back to sinus rhythm Normal TSH Cardiology input appreciated, no need for AC now Anemia of chronic kidney disease monitor Mood disorder Continue home mood stabilizers DVT prophylaxis Heparin Patient will need overnight hospital stay for treatment of pneumonia and monitoring pericardial effusion ? Time Spent With Patient Time: Total time managing care of this patient today ____ minutes. Quality Stroke Does the patient have a stroke diagnosis?: No VTE Prior VTE?: No VTE Risk Level:: Medical - moderate - high VTE Device Contraindication: Treatment Not Indicated VTE Drug Contraindication: N/A - Med Ordered
[2023-03-02] MEDS: Midodrine HCl 10 MG TABLET PO (13:30)
[2023-03-02 15:51] VITALS: BP 131/71; PULSE 82; RESP 18; TEMP 37.4; O2SAT 90
[2023-03-02] MEDS: cefTRIAXone sodium 1 GM in 0.9 % Sodium Chloride 50 ML IV (19:39)
[2023-03-02 20:00] VITALS: BP 125/68; PULSE 86; RESP 18; TEMP 35.9; O2SAT 92
[2023-03-02] MEDS: Azithromycin 500 MG in 0.9 % Sodium Chloride 250 ML 125 MG IV (20:23)
[2023-03-02] MEDS: Acetaminophen 325 MG TABLET 650 MG PO (20:28)
[2023-03-02] MEDS: traZODone HCL 50 MG TABLET PO (20:29)
--- NOTE | 2023-03-02 23:50 | PC.NURSE ---
Pt continues to refuse laboratory monitor, resistive to care.
[2023-03-03] VITALS: BP 115/61; BP 122/65; PULSE 73; PULSE 81; RESP 18; TEMP 36.4; TEMP 36.8; O2SAT 90; O2SAT 98
[2023-03-03 03:47] VITALS: BP 141/66; PULSE 84; RESP 18; TEMP 36.8; O2SAT 95
[2023-03-03] MEDS: clonazePAM 1 MG TABLET PO ×2 (05:09→12:16)
[2023-03-03 07:52] VITALS: BP 132/75; PULSE 82; RESP 18; TEMP 36.9; O2SAT 97
[2023-03-03] MEDS: Ascorbic Acid 500 MG TABLET PO (07:54)
[2023-03-03] MEDS: Prochlorperazine Maleate 5 MG TABLET PO (07:54)
[2023-03-03] MEDS: OXcarbazepine 300 MG TABLET 600 MG PO (07:54)
[2023-03-03] MEDS: lamoTRIgine 25 MG TABLET 75 MG PO (07:54)
[2023-03-03] MEDS: Furosemide 40 MG TABLET 80 MG PO (07:54)
[2023-03-03] MEDS: Sodium Polystyrene Sulfon/Sorb 15 GM/60 ML ORAL.SUSP PO (07:55)
[2023-03-03] MEDS: Metoprolol Tartrate 25 MG TABLET PO (07:55)
[2023-03-03] MEDS: Cyanocobalamin (Vitamin B-12) 1,000 MCG TABLET 1000 MCG PO (07:55)
[2023-03-03] MEDS: 0.9 % Sodium Chloride Flush 3 ML SYRINGE IVFLUSH (07:56)
--- NOTE | 2023-03-03 10:48 | P.PNCA_ITS ---
Subjective Subjective Date of Service: 03/03/23 Principal diagnosis: paroxysmal atrial flutter, pericardial effusion Interval history: Patient with no recurrent arrhythmias although refusing not aware monitor. Repeat echocardiogram yesterday shows mild to moderate pericardial effusion without tamponade physiology and actually improved IVC plethora after hemodia lysis suggestive of intravascular pressure buildup rather than pericardial tamponade. Breathing well. No oxygen required. Review of Systems Review of Systems Yes all other systems are reviewed and are negative Physical Exam Vital Signs: Last Vital Signs Temp 98.5 F 03/03/23 07:52 Pulse 82 03/03/23 07:52 Resp 18 03/03/23 07:52 BP 132/75 03/03/23 07:52 Pulse Ox 97 03/03/23 07:52 O2 Del Method Room Air 03/03/23 07:52 O2 Flow Rate 2 03/02/23 07:43 BMI result Body Mass Index 21.4 Const General: cooperative, comfortable, alert, awake and anxious Nutritional Appearance: thin Orientation/consciousness: patient oriented x3 Neck Neck: Yes trachea midline and Yes supple Resp Effort & Inspection: normal respiratory effort Auscultation: breath sounds absent on th left (base) Cardio Jugular venous distension: no JVD Palpation: normal PMI Rate: regular rate Rhythm: regular rhythm Heart sounds: S1 normal heart sound present, S2 normal heart sound present, no click, no gallops and no rubs GI Auscultation: normal bowel sounds Skin General skin exam: no rashes or lesions noted Neuro General: patient oriented x3 and no focal motor deficits Extrem General: Yes no clubbing, cyanosis or edema Objective Labs and Meds 03/02/23 06:44 03/01/23 06:00 Progress Note: A&P Assessment and plan (1) Effusion, pericardium: Status: Acute Assessment and Plan: Pericardial effusion which is small to moderate without hemodynamic compromise or evidence of cardiac tamponade by echocardiogram. Follow-up echocardiogram in 10 days after oral steroid therapy to reduce inflammatory component of pericardial effusion which is possible given his pneumonia. Continue treatment of his pneumonia. Follow up in the clinic after limited echocardiogram. Atrial flutter which was transient. No anticoagulation needed. Continue metoprolol therapy. Will sign of the case. Patient can be discharged home today. Time Spent With Patient Time: Total time managing care of this patient today ____ minutes. Progress Note: Quality Stroke Does the patient have a stroke diagnosis?: No Procedures Date of Service Date of Service: 03/03/23
--- NOTE | 2023-03-03 11:06 | PM.PNNEP ---
Subjective Subjective Date of Service: 03/03/23 Principal diagnosis: paroxysmal atrial flutter, pericardial effusion Interval history: Seen and evaluated this morning . Going to go home today. Physical Exam Vital Signs: Vital Signs: Last Vital Signs Temp 98.5 F 03/03/23 07:52 Pulse 82 03/03/23 07:52 Resp 18 03/03/23 07:52 BP 132/75 03/03/23 07:52 Pulse Ox 97 03/03/23 07:52 O2 Del Method Room Air 03/03/23 07:52 O2 Flow Rate 2 03/02/23 07:43 BMI result Body Mass Index 21.4 Const: General: no acute distress Orientation/consciousness: patient oriented x3 Eyes: EOM: EOMs intact bilaterally Resp: Auscultation: diminished lung sounds Cardio: Rate: regular rate GI: Palpation (GI): Soft to palpation Neuro: General: patient oriented x3 and moves all extremities Objective Data Labs 03/02/23 06:44 03/01/23 06:00 Microbiology Microbiology Results: Microbiology 02/28/23 17:07 Blood - Venous Blood Culture - Preliminary No growth after 48 hours. 02/28/23 17:07 Blood - Venous Blood Culture - Preliminary No growth after 48 hours. Procedures Date of Service Date of Service: 03/03/23 Assessment & Plan Assessment and plan (1) Chronic kidney 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: Status: Acute Assessment and Plan: Usually gets HD on [facility] [place] [facility] Needs to be compliant with 4 hour HD ( moreno given pericardial issues) Counseled about all these Has a follow up with [facility] with rest of current management Progress Note: Quality Stroke Does the patient have a stroke diagnosis?: No
[2023-03-03 11:35] VITALS: BP 126/57; PULSE 75; RESP 20; TEMP 36.7; O2SAT 95
--- NOTE | 2023-03-03 11:35 | PM.DS ---
DS: Providers Provider Date of Service: 03/03/23 Date of admission: 02/28/23 20:46 Primary care physician: Gerald Davis MD Consults: 02/28/23 20:46 Consult to Cardiology Routine Consulting Provider: [facility] [facility] Reason for consultation: atrial flutter , pericardial effusion Has provider been notified: Yes Consult to Nephrology Routine Consulting Provider: Romeo Carreno Reason for consultation: ESRD 02/28/23 21:04 Consult to Thoracic Surgery Routine Consulting Provider: [facility] [place] [facility] Reason for consultation: pericardiocentesis DS: Diagnosis Discharge Diagnosis (1) Chronic kidney 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: Status: Acute (2) Sepsis: Status: Acute (3) Hypoxemia: Status: Acute (4) Pneumonia: Status: Acute (5) Effusion, pericardium: Status: Acute DS: Summary Hospital Course Hospital Course: Admission note HPI This is a 73-year-old male with pertinent history of ESRD on hemodialysis Tuesday/Tuesday/Tuesday, mood disorder, essential hypertension presents to the emergency department for evaluation of cough, fever.? Patient states he started feeling unwell on the day of presentation.? Reports fevers and chills.? Also has been having a cough.? Patient reports dyspnea, worse with exertion.? Denies orthopnea or PND.? Patient denies chest discomfort, palpitations, abdominal pain, changes in urinary or bowel habits.? States he completed his hemodialysis session on the day of presentation.? Reports being compliant to p.o. home medications. In the emergency department, patient was found to be hypoxemic and imaging concerning for left-sided infiltrate. Hospital course Admitted for Acute hypoxemic respiratory failure and Sepsis due to left-sided pneumonia as seen on chest images. Weaned down supplemental oxygen to room air during hospital stay. Negative blood cultures. Treated with IV antibiotics of Azithromycin and Ceftriaxone with good response. To be discharged on 5 more days of Augmentin. ESRD Had Hd MWD per schedule, Nephrology followed him and asked him to start finishing 4 hours treatment for possible related uremic pericardial effusion Noted to have breif run of Atrial flutter with RVR which converted back to sinus rhythm with Normal TSH as he was evaluated by Cardiology who recommended no need for AC now. Pericardial effusion. noted on imaging and confirmed by Echo showing small to moderate effusion evaluated by thoracic surgery who recommended medical management. Cardiology rec Steroid therapy at time of discharge as Follow-up limited echocardiogram showed similar effusion after dialysis treatment. will be followed as OP with cardiology to repeat Echo. We advise you to quit smoking Continue Antibiotics once daily, take after dialysis in days of dialysis Prednisone for pericardial effusion. To follow up with dr Bowden in 2 weeks to repeat Echo for further recommendations. To start physical therapy at home Time Spent with Patient Time attestation: Total time managing care of this patient today ____ minutes. Discharge coordination time: Greater than 30 minutes Quality: Safe Use of Opioids Does Pt have an Active Cancer Diagnosis on the Problem List?: No Quality: Stroke Does the patient have a stroke diagnosis?: No Physical Exam Vital Signs: Vital Signs: Last Vital Signs Temp 98.5 F 03/03/23 07:52 Pulse 82 03/03/23 07:52 Resp 18 03/03/23 07:52 BP 132/75 03/03/23 07:52 Pulse Ox 97 03/03/23 07:52 O2 Del Method Room Air 03/03/23 07:52 O2 Flow Rate 2 03/02/23 07:43 BMI result Body Mass Index 21.4 Const: Other: Constitutional : Awake, interactive, not in distress Neck : Normal inspection, Supple Cardiovascular : RRR, no JVP, no lower extremity edema Respiratory :fair bilateral air entry, basal fine crackles Gastrointestinal: soft, lax, Normal bowel sounds, Non tender Skin : Warm, Dry, clean fistula Neurological : Alert & oriented x3, No focal deficit DS: Data Data Completed and Pending Labs on day of discharge: Preliminary micro results at discharge 02/28/23 17:07 Blood Culture - Preliminary Blood - Venous No growth after 48 hours. 02/28/23 17:07 Blood Culture - Preliminary Blood - Venous No growth after 48 hours. Imaging Chest x-ray: Radiologist's impression: ITS Impressions Chest X-Ray 02/28/23 18:44 IMPRESSION: Cardiomegaly with left lower lobe infiltrate/atelectasis/pleural effusion. Abdomen/Pelvis CT 02/28/23 18:55 IMPRESSION: * No acute imaging abnormalities in the abdomen or pelvis compared to 02/06/2023. * Persistent (and increased) pericardial effusion and new small bilateral pleural effusions with bibasilar atelectasis. * Polycystic renal disease. * Colonic diverticulosis without evidence of diverticulitis. * Small left inguinal hernia contains fat and short segment of bowel. No bowel obstruction. * Again noted is mild dilatation of the pancreatic duct, significance uncertain. There is no overt pancreatic head mass or ampullary lesion seen on this limited noncontrast exam, nor on the prior contrast-enhanced images from 02/06/2023. Discharge Plan Discharge Anticipated Discharge Date/Time: 03/03/23 11:18 Patient Disposition: Home Health Service Discharge Diagnosis: Sepsis from Pneumonia Pericardial effusion Referrals: Gerald Davis MD [Primary Care Provider] - 1 Week Discharge Medications: New amoxicillin-pot clavulanate 500-125 mg tablet 1 tab PO DAILY Qty: 5 0RF Rx Instructions: Take after dialysis in days of dialysis. prednisone 10 mg tablet See Taper PO DIRECTED Qty: 30 0RF Taper: Prednisone 40 mg daily for 2 Days and 0 Hour 30 mg daily for 3 Days and 0 Hour 20 mg daily for 3 Days and 0 Hour 10 mg daily for 3 Days and 0 Hour Rx Instructions: see taper instructions Continued trazodone 50 mg tablet 50 mg PO BEDTIME lisinopril 20 mg tablet 20 mg PO DAILY clonazepam 1 mg tablet 1 mg PO TID cyanocobalamin (vitamin B-12) 1,000 mcg Tablet 1,000 mcg PO DAILY lamotrigine 25 mg tablet 75 mg PO QAM ascorbic acid (vitamin C) 500 mg Tablet 500 mg PO DAILY furosemide 80 mg tablet 80 mg PO [place] oxcarbazepine 600 mg tablet 600 mg PO BID ergocalciferol (vitamin D2) 1,250 mcg (50,000 unit) capsule 1,250 mcg PO QMONTH sodium polystyrene sulfonate Powder 15 g PO [place] prochlorperazine maleate 5 mg tablet 5 mg PO BID Discharge Orders: Discharge Order (Routine); Ordered 03/03/23 Ordered By: Marino Butler Diet: Advance to usual diet Activity on Discharge: As tolerated Stand Alone Forms: Patient Portal Discharge page Care Plan Goals: Read below Health Concerns: Read below Plan of Treatment: Read below Assessment: You were treated for sepsis secondary to pneumonia with IV antibiotics with good response over the course of hospital stay. Noted to have effusion around your heart evaluated by waste transportation technician who recommended treatment with steroids and follow up as outpatient. We advise you to quit smoking Continue Antibiotics once daily, take after dialysis in days of dialysis Prednisone for pericardial effusion. To follow up with dr Bowden in 2 weeks to repeat Echo for further recommendations. To start physical therapy at home
[2023-03-03] MEDS: predniSONE 20 MG TABLET 40 MG PO (12:16)
--- NOTE | 2023-03-03 12:33 | MHC.CM.PN ---
Patient has been medically cleared for dc to home today with [facility]. [facility] was unable to accept Patient; [facility] will provide home PT & RN. CM[facility] [facility]Tere has reached out to [facility] to inform them of today's dc and to request that Patient's services through their agency begin [facility].Last IMM on 03/01/2023.DC plan discussed at bedside with Patient and his family member.
--- NOTE | 2023-03-03 13:20 | P.F2F_ITS ---
Service Date Service Date: 03/03/23 Encounter Date of encounter: 03/03/23 Reasons for Services Signs and symptoms assessed: physical deconditioning Reason for detention: medication management and teach disease management Reason for physical therapy: home safety and mobility and therapeutic exercises Homebound: Leaving the home is medically contraindicated at this time without the asist of a device and/or another person due th the listed conditions above and below. Reason homebound: unsteady gait / fall risk Certification: Based on the above findings, I certify that this patient is confined to the home and needs intermittent detention care, physical therapy and/or speech therapy, or continues to need occupational therapy. The patient is under my care, and I have initiated the establishment of the plan of care. The patient will be followed by a physician who will periodically review the plan of care. Time Spent With Patient Time: Total time managing care of this patient today ____ minutes.
== END 2023-03-03 12:55 | disposition home health service (06) | DRG 871 ==
LOC: HO.ED 17:35 → HO.EDOVER 20:52 → HO.IMC 03-01 11:38
PROVIDERS: Admitting Provider Student in an Organized Health Care Education/Training Program; Emergency Provider Student in an Organized Health Care Education/Training Program; PCP Family Medicine; Visit Provider Student in an Organized Health Care Education/Training Program
DX: A41.9 Sepsis, unspecified organism (principal); J18.9 Pneumonia, unspecified organism; N18.6 End stage renal disease; J96.01 Acute respiratory failure with hypoxia; I48.92 Unspecified atrial flutter; I13.11 Hypertensive heart and chronic kidney disease without heart failure, with stage 5 chronic kidney disease, or end stage renal disease; J91.8 Pleural effusion in other conditions classified elsewhere; I31.39 Other pericardial effusion (noninflammatory); F39 Unspecified mood [affective] disorder; F17.210 Nicotine dependence, cigarettes, uncomplicated; Z71.6 Tobacco abuse counseling; G47.33 Obstructive sleep apnea (adult) (pediatric); D63.1 Anemia in chronic kidney disease; Z99.2 Dependence on renal dialysis; Z79.899 Other long term (current) drug therapy
CPT/HCPCS: 0241U; 36415; 71045; 74176; 80048; 80053; 80307; 81001; 83605; 83615; 83880; 84443; 85025; 85027; 85610; 87040; 90999; 93005; 93308; 97161; 99285; J0456; J0696; J1643; J1940

== ENCOUNTER 2023-02-28 20:46 | Outpatient (BNV) | payer MEDICARE, OTHER, SELFPAY | END 2023-03-01 07:00 | PROVIDERS: Admitting Provider Student in an Organized Health Care Education/Training Program; Emergency Provider Student in an Organized Health Care Education/Training Program; PCP Family Medicine; Visit Provider Internal Medicine Cardiovascular Disease | DX: I31.39 Other pericardial effusion (noninflammatory) (principal) | CPT/HCPCS: 93308 ==

== ENCOUNTER 2023-02-28 20:46 | Outpatient (BNV) | payer MEDICARE, OTHER, SELFPAY | END 2023-03-02 07:00 | PROVIDERS: Admitting Provider Student in an Organized Health Care Education/Training Program; Emergency Provider Student in an Organized Health Care Education/Training Program; PCP Family Medicine; Visit Provider Internal Medicine Cardiovascular Disease | DX: I31.39 Other pericardial effusion (noninflammatory) (principal) | CPT/HCPCS: 93308 ==

== ENCOUNTER → 2023-02-28 20:46 | Outpatient (BNV) | payer MEDICARE, OTHER, SELFPAY | PROVIDERS: Admitting Provider Student in an Organized Health Care Education/Training Program; Emergency Provider Student in an Organized Health Care Education/Training Program; PCP Family Medicine; Visit Provider Surgery | DX: J90 Pleural effusion, not elsewhere classified (principal); I31.39 Other pericardial effusion (noninflammatory); A41.9 Sepsis, unspecified organism; J96.01 Acute respiratory failure with hypoxia; J18.9 Pneumonia, unspecified organism | CPT/HCPCS: 99223 ==

== ENCOUNTER → 2023-02-28 20:46 | Outpatient (BNV) | payer MEDICARE, OTHER, SELFPAY | PROVIDERS: Admitting Provider Student in an Organized Health Care Education/Training Program; Emergency Provider Student in an Organized Health Care Education/Training Program; PCP Family Medicine; Visit Provider Student in an Organized Health Care Education/Training Program | DX: N18.6 End stage renal disease (principal); Z99.2 Dependence on renal dialysis; A41.9 Sepsis, unspecified organism; J96.01 Acute respiratory failure with hypoxia; J18.9 Pneumonia, unspecified organism; I31.39 Other pericardial effusion (noninflammatory) | CPT/HCPCS: 99223; 99233; 99239; G0180 ==

== ENCOUNTER → 2023-02-28 20:46 | Outpatient (BNV) | payer MEDICARE, OTHER, SELFPAY | PROVIDERS: Admitting Provider Student in an Organized Health Care Education/Training Program; Emergency Provider Student in an Organized Health Care Education/Training Program; PCP Family Medicine; Visit Provider Internal Medicine Cardiovascular Disease | DX: I31.39 Other pericardial effusion (noninflammatory) (principal) | CPT/HCPCS: 99222; 99233 ==

== ENCOUNTER → 2023-03-11 08:03 | Outpatient (REF) | payer MEDICARE, OTHER, SELFPAY ==
--- NOTE | 2023-03-11 08:05 | CA_ITS ---
Transthoracic Echocardiogram Patient (Last, First, Middle): Igor May, Gender: Male Date of : 1950 Age: 73 Procedure Date: 03/11/2023 Procedure Type: Transthoracic Echocardiogram Location: OP Height: 180. cm Weight: 66. kg BSA: 1.84 m2 Heart Rate: 70 bpm BP: 125 / 80 mmHg [employer] Supervisor: ANDIE Referring MD: Amy Cardenas DEVELOPMENT AND HOUSING DIRECTOR Symptoms: I10 - Essential (primary) hypertension, pericardial effusion Study Quality: Adequate ECG Rhythm: Sinus Conclusions: - There is a trivial pericardial effusion. Findings Left Ventricle Normal left ventricular cavity size. The left ventricular systolic function is mildly decreased. The visually estimated ejection fraction is between 45 50%. Venous The inferior vena cava is dilated and collapses greater than 50% with inspiration. Pericardium/Pleural There is a trivial pericardial effusion. Prior Study Comparison Changes noted compared to prior study dated: 03/02/2023. Resolved pericardial effusion. Measurements Mitral Valve E'Lateral: 5.98 E'Medial: 5.44 Diastolic Function E'Medial: 5.44 E' Laterial: 5.98 Updated in Other Vendor System with Status of Final Robby Longoria MD electronically signed on 03/12/2023 11:13:19 AM with status of Final
== END ==
LOC: HO.CARD 08:03
PROVIDERS: PCP Family Medicine; Visit Provider Nurse Practitioner
DX: I48.92 Unspecified atrial flutter (principal); I31.39 Other pericardial effusion (noninflammatory); I10 Essential (primary) hypertension
CPT/HCPCS: 93308

== ENCOUNTER → 2023-03-11 08:05 | Outpatient (BNV) | payer MEDICARE, OTHER, SELFPAY | PROVIDERS: PCP Family Medicine; Visit Provider Internal Medicine | DX: I51.9 Heart disease, unspecified (principal); I10 Essential (primary) hypertension | CPT/HCPCS: 93308 ==

== ENCOUNTER 2023-03-15 09:39 | Outpatient (AMB) | payer MEDICARE, OTHER, SELFPAY ==
--- NOTE | 2023-03-15 09:40 | MHC.OFFVIS ---
Intake Vital Signs 03/15/23 09:41 Height 5 ft 11 in Weight 156 lb 8.451 oz BMI 21.8 BP 126/70 Blood Pressure Location Lt brachial Position Sitting Pulse 67 Pulse Source Pulse Oximeter Intake Visit Reasons[place] [facility] [place] fu/ [place] pt Intake Note: [facility] follow up. Inspector Insulation Required: No Accompanied by: Ex- Allergies bupropion [From WELLBUTRIN] Adverse Reaction (Unknown, Verified 03/15/23 09:45) CONSTIPATION NSAIDS (Non-Steroidal Anti-Inflamma [NSAIDS (NON-STEROIDAL ANTI-INFLAMMA] Adverse Reaction (Unknown, Verified 03/15/23 09:45) RENAL Ztnaojc-BOW-GcZ Reductase Inhibitor [GWHUHQK-VNC-SEQ REDUCTASE INHIBITOR] Adverse Reaction (Unknown, Verified 03/15/23 09:45) UNK Medication List - Last Reconciled 03/15/23 by WILVER Seth alclometasone 0.05% 1 appl topical PRN ascorbic acid (vitamin C) 500 mg PO DAILY clonazepam 1 mg PO TID cyanocobalamin (vitamin B-12) 1,000 mcg PO DAILY ergocalciferol (vitamin D2) 1,250 mcg PO QMONTH furosemide 80 mg PO SUTUTHSA lamotrigine 75 mg PO QAM lisinopril 20 mg PO DAILY oxcarbazepine 600 mg PO BID prochlorperazine maleate 5 mg PO BID sodium polystyrene sulfonate 15 grams PO SUTUTHSA trazodone 50 mg PO BEDTIME HPI [facility] [place] fu/ NS pt HPI Details Igor is a 73-year-old male with past medical history of hypertension, smoking, end-stage renal disease and on dialysis who was recently admitted to [facility] with increased shortness of breath and found to have pneumonia, pericardial effusion. During his admission he had a brief episode of atrial flutter. He was not started on anticoagulation. He was put on antibiotics and steroids and follow-up outpatient limited echo showed improvement in his effusion. Today he reports he has been feeling well since his hospital discharge. He continues to have some fatigue but states he is improving. He says his breathing is back to normal. No PND, orthopnea or edema. He denies chest discomfort at rest or with activity. No heart palpitations, presyncope, syncope, falls. He does have some mild dizziness in the mornings after taking his medications which he states is typical for him. He says that he had issues with bradycardia in the past when taking Wellbutrin. He reports only light physical activity and has osteoarthritis in his knees which limits him. He ambulates with a cane. Ex-/proxy is present. [facility] Medical History Atrial flutter AV fistula Chronic kidney 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 Effusion, pericardium Essential hypertension Mood disorder Nicotine dependence, cigarettes, uncomplicated Pleural effusion, left Surgical History History of colonoscopy History of hernia repair History of parathyroidectomy Social History Household Members: None Housing: Apartment Do you presently have visiting nurse or other home services: Yes (Housekeeping services) Alcohol intake: former Patient Tobacco Use Status: Current everyday Tobacco user Tobacco use type: Cigarette Cigarette Packs Per Day: 0.5 Cigarettes Per Day: 10.0 Years Smoked: 60 +/- e-Cigarette/Vaping Use: Currently Using Second Hand Smoke Exposure: Yes service: No Review of Systems Const Details: Fatigue All systems reviewed & are unremarkable except as noted in HPI and below Denies weakness ENT Reports dizziness Card Denies chest pain, Denies chest pain with activity, Denies syncope, Denies rapid heart rate, Denies pedal edema, Denies edema, Denies leg edema, Denies lightheadedness, Denies palpitations, Denies dyspnea, Denies dyspnea on exertion and Denies orthopnea Resp Denies cough, Denies dyspnea and Denies dyspnea on exertion GI Denies hematochezia and Denies change in stool character Musc Reports abnormal gait, Denies muscle cramps, Denies muscle weakness, Denies numbness, Denies radiating pain into limb and Denies tingling Neuro Reports abnormal gait, Reports dizziness, Denies syncope, Denies numbness, Denies tingling and Denies weakness Endo Denies palpitations Physical Exam Vital Signs: Last Vital Signs Pulse 67 03/15/23 09:41 BP 126/70 03/15/23 09:41 BMI result Body Mass Index 21.8 Const General: cooperative, healthy appearing, comfortable and no acute distress Orientation/consciousness: patient oriented x3 Neck Neck: Yes normal visual inspection Resp Effort & Inspection: normal respiratory effort Auscultation: clear to auscultation bilaterally, no crackles, no rales, no rhonchi and no wheezes Cardio Jugular venous distension: no JVD Rate: regular rate Rhythm: regular rhythm Heart sounds: S1 normal heart sound present, S2 normal heart sound present, no murmurs and no rubs Neuro General: patient oriented x3 Extrem General: Yes normal to inspection Psych Appearance: grossly normal Mental Status: mental status grossly normal Speech and movement: Normal speech and movement present Assessment & Plan Assessment & Plan (1) Effusion, pericardium: Code(s): I31.39 - Other pericardial effusion (noninflammatory) Plan: Recent [facility] [place] for shortness of breath. Found to have pneumonia, pericardial effusion. Limited echo done on 03/01/2023 shows EF 45-50%, small to moderate pericardial effusion, no tamponade. Repeat echo the following day showed no change. He was managed with antibiotics and steroids. Notes indicate that his effusion may be related to the pneumonia. He also has end-stage renal disease and is undergoing dialysis. Patient tells me that his dialysis withdrawal has been increased since his hospital admission. An outpatient limited echo done on 03/11/2023 shows EF 45-50%, trivial pericardial effusion. Today he reports he has been feeling generally well. He has no shortness of breath or chest discomfort but does have residual fatigue. On examination he does not have any clinical signs indicating heart failure. He still has mild cardiomyopathy for unclear reason. Will plan for a full echocardiogram prior to his next visit. If reduce EF related to his acute illness improvement should be seen by that time. If he continues to have low EF then stress test will be warranted. He is on lisinopril 20 mg daily. In the hospital notes do indicate he was on metoprolol however at time of discharge it was not included on his med list. It is unclear to me at present white metoprolol was stopped. Patient does tell me that in the past he had issues with bradycardia when taking Wellbutrin. Will continue current treatment. Cardiology follow-up in 3 months, after echo. (2) Atrial flutter: Code(s): I48.92 - Unspecified atrial flutter Plan: Brief episode of atrial flutter during last hospital admission. He was thought to be related to acute illness. He was put on metoprolol as stated above. Anticoagulation was not indicated. Today he reports he has not felt any heart palpitations. He is not taking metoprolol. Resting heart rate 67 and regular. Will be checking Holter monitor to assess for average heart rate, recurrent AFib/flutter. If he does have recurrent findings then will require anticoagulation. Chads Vasc score of 2 with agent hypertension. If heart rates allow then will plan for start of low-dose metoprolol after results reviewed. Diagnosis of atrial flutter, stroke risk, med management reviewed with him (3) Enlarged pulmonary artery: Comment: (noted on 01/[address]) Code(s): I28.8 - Other diseases of pulmonary vessels Plan: Seen on recent CT scan at time of last admission. Full echo being ordered as above (4) Essential hypertension: Code(s): I10 - Essential (primary) hypertension Plan: Well controlled at present. Taking all meds as directed. (5) Hospital discharge follow-up: Code(s): Z09 - Encounter for follow-up examination after completed treatment for conditions other than malignant neoplasm Orders: Orders CA echo transthoracic complete 3 Months I28.8 - Other diseases of pulmonary vessels, I31.39 - Other pericardial effusion (noninflammatory), I48.92 - Unspecified atrial flutter ECG 3 day holter monitor Today I48.92 - Unspecified atrial flutter Coding Level of Care Code Est Pt Level 4 (18826) Diagnoses Effusion, pericardium I31.39 Atrial flutter I48.92 Enlarged pulmonary artery I28.8 Essential hypertension I10 Hospital discharge follow-up Z09 Time Spent (min) 28 Comment Chart review, documentation, interview, assessment
[2023-03-15 09:41] VITALS: BP 126/70; PULSE 67; BMI 21.8
== END 2023-03-15 10:38 | disposition home or self-care (01) ==
PROVIDERS: PCP Family Medicine; Referring Provider Family Medicine; Visit Provider Nurse Practitioner Family
DX: I31.39 Other pericardial effusion (noninflammatory) (principal); I48.92 Unspecified atrial flutter; I28.8 Other diseases of pulmonary vessels; I10 Essential (primary) hypertension; Z09 Encounter for follow-up examination after completed treatment for conditions other than malignant neoplasm
CPT/HCPCS: 99214

== ENCOUNTER → 2023-03-15 09:39 | Outpatient (BNVA) | payer MEDICARE, OTHER, SELFPAY | PROVIDERS: PCP Family Medicine; Referring Provider Family Medicine; Visit Provider Nurse Practitioner Family | DX: I31.39 Other pericardial effusion (noninflammatory) (principal); I48.92 Unspecified atrial flutter; I28.8 Other diseases of pulmonary vessels; I10 Essential (primary) hypertension; Z79.899 Other long term (current) drug therapy | CPT/HCPCS: 99212 ==

== ENCOUNTER → 2023-05-19 08:54 | Outpatient (REF) | payer MEDICARE, OTHER, SELFPAY ==
--- NOTE | 2023-05-19 09:05 | HM_ITS ---
Conclusion: 1. Patient was monitored for total period of 3 days 2. Baseline was normal sinus with average heart of 75 beats per minute 3. Frequent PVCs noted with total burden of 7.4% with frequent nonsustained runs of ventricular arrhythmias, longest 7 beats at 154 beats per minute 4. Rare PACs noted with short run of SVT, lasting 12 beats at 140 beats per minute 5. No patient reported symptoms MTDD
--- NOTE | 2023-05-19 09:05 | CA_ITS ---
Transthoracic Echocardiogram Patient (Last, First, Middle): Igor May, Gender: Male Date of : 1950 Age: 73 Procedure Date: 05/19/2023 Procedure Type: Transthoracic Echocardiogram Location: OP Height: 177.8 cm Weight: 69.85 kg BSA: 1.87 m2 Heart Rate: bpm BP: 158 / 80 mmHg Employment Recruiter: FAIZAN Referring MD: Dian Cha DIGITAL IMAGING SPECIALIST-C Multi Disciplined Language Analyst: Kenny Bowden MD Symptoms: I28.8 - Other diseases of pulmonary vessels Study Quality: Adequate ECG Rhythm: Sinus Conclusions: - 1. Mildly dilated left ventricle with LVEF of 45-50% with pseudonormal filling pattern 2. Severely dilated left atrium 3. At least moderate mitral regurgitation 4. Moderately elevated right ventricular systolic pressure is significantly elevated right atrial pressures 5. Mildly dilated ascending aorta at 4.1 cm 6. No gross pericardial effusion Findings Left Ventricle Mildly increased left ventricular cavity size. There is normal left ventricular wall thickness. The left ventricular systolic function is mildly decreased. The visually estimated ejection fraction is between 45-50%. Spectral Doppler is indicative of a pseudonormal filling pattern. Right Ventricle Normal right ventricular cavity size and systolic function. Atria The left atrium is severely dilated. There is lipomatous hypertrophy of the interatrial septum. Interatrial shunt cannot be excluded. The right atrium is mildly dilated. Aortic Valve The aortic valve was not well visualized. There is mild calcification of the aortic valve. There is no aortic valve stenosis. There is no aortic valve regurgitation. Mitral Valve There is mild anterior and posterior mitral leaflet thickening. There is moderate mitral valve regurgitation. There is no mitral valve stenosis. Pulmonic Valve The pulmonic valve is likely normal. There is trace to mild pulmonic valve regurgitation. Tricuspid Valve Normal tricuspid valve structure. There is mild tricuspid valve regurgitation. Significantly elevated right atrial pressure. Moderate pulmonary hypertension is present. Great Vessels The pulmonary artery was not well visualized. There is mild dilatation of the ascending aorta measuring 4.10 cm. Venous The inferior vena cava is severely dilated and collapses less than 50% with inspiration. Pericardium/Pleural There is no evidence of pericardial effusion. Prior Study Comparison Changes noted compared to prior study dated: 03/11/2023. RV systolic and right atrial pressures are elevated. No significant pericardial effusion noted Measurements 2D Linear Measurements IVSd: 0.98 0.6-0.9/0.6-1.0 cm LVIDd: 5.68 3.9-5.3/4.2-5.9 cm LVIDd Index: 3.04 2.4-3.2/2.2-3.1 cm/m2 LVIDs: 4.30 2.0-3.6 cm LVPWd: 1.11 0.7-1.1 cm LA Diam: 4.60 2.7-3.8/3.0-4.0 cm LAIDs Index: 2.46 1.5-2.3 cm/m2 LV Mass: 297.28 67-162/88-224 g LV Mass Index: 158.97 43-95/49-115 g/m2 LVOT Diam: 2.10 3.0+(-)1.3 cm 2D Systolic Function EF 4C: 43.00 >55% EF 2C: 48.10 >55% EF BiP: 47.10 >55% Mitral Valve MV Pk E: 1.35 MV PK A: 0.58 MV Decel Time: 204.00 E/A: 2.30 E'Lateral: 4.57 E'Medial: 5.00 E/E' Med: 27.00 E/E' Lat: 29.50 PHT: 60.00 MVA PHT: 3.67 Decel [place]: 6.60 MR Vol - PW Dopp: 13.02 MR VTI: 1.86 MR ERO: 7.00 MR Alias Bradford: 0.35 MR RAD: 0.40 Aortic Valve AoV Pk Bradford: 1.64 AoV Mn Bradford: 1.02 AoV VTI: 0.32 AoV Pk Grad: 11.00 Aov Mn Grad: 5.00 JACOB Cont.VTI: 2.38 LVOT LVOT Pk Bradford: 1.07 LVOT Mn Bradford: 0.70 LVOT VTI: 0.22 LVOT Pk Grad: 5.00 LVOT Mn Grad: 2.00 LVOT Diam: 2.10 LVOT Area: 3.46 Diastolic Function MV Pk E: 1.35 MV Pk A: 0.58 E/A: 2.30 E'Medial: 5.00 E/E' Med: 27.00 E' Laterial: 4.57 E/E' Lat: 29.50 Right Ventricle TAPSE (mm): 21.90 TVS' Bradford: 10.60 Tricuspid Valve TR Pk Bradford: 3.20 TR Pk Grad: 41.00 RA Press: 15.00 RVSP: 56.00 Great Vessels Aorta Sinus of Valsalva: 3.36 2.0-3.[address] [place]: 2.97 1.7-3.4 cm Ao Asc: 4.10 2.1-3.4 cm Updated in Other Vendor System with Status of Final Kenny Bowden MD electronically signed on 05/19/2023 4:31:46 PM with status of Final
== END ==
LOC: HO.CARD 08:54
PROVIDERS: PCP Family Medicine; Visit Provider Nurse Practitioner Family
DX: I48.92 Unspecified atrial flutter (principal); I28.8 Other diseases of pulmonary vessels; I31.39 Other pericardial effusion (noninflammatory)
CPT/HCPCS: 93242; 93306

== ENCOUNTER → 2023-05-19 09:05 | Outpatient (BNV) | payer MEDICARE, OTHER, SELFPAY | PROVIDERS: PCP Family Medicine; Visit Provider Internal Medicine Cardiovascular Disease | DX: I49.3 Ventricular premature depolarization (principal) | CPT/HCPCS: 93244; 93306 ==

== ENCOUNTER 2023-05-31 13:44 | Outpatient (AMB) | payer MEDICARE, OTHER, SELFPAY ==
[2023-05-31 14:04] VITALS: BP 120/72; PULSE 67; BMI 22.4
--- NOTE | 2023-05-31 14:04 | A.OFFVIS_ITS ---
Intake Vital Signs 05/31/23 14:04 Height 5 ft 11 in Weight 160 lb 14.999 oz BMI 22.4 BP 120/72 Blood Pressure Location Rt brachial Position Sitting Pulse 67 Pulse Source Pulse Oximeter Intake Visit Reasons: 3 month follow up Home Therapy Teacher Required: No Lock Corner Machine Operator: Lock Corner Machine Operator Present Accompanied by: Significant Other Allergies bupropion [From WELLBUTRIN] Adverse Reaction (Unknown, Verified 05/31/23 14:08) CONSTIPATION NSAIDS (Non-Steroidal Anti-Inflamma [NSAIDS (NON-STEROIDAL ANTI-INFLAMMA] Adverse Reaction (Unknown, Verified 05/31/23 14:08) RENAL Mduimak-IEV-WoQ Reductase Inhibitor [GBDZGJT-LJX-QMM REDUCTASE INHIBITOR] Adverse Reaction (Unknown, Verified 05/31/23 14:08) UNK Medication List - Last Reconciled 05/31/23 by WILVER Seth alclometasone 0.05% 1 appl topical PRN ascorbic acid (vitamin C) 500 mg PO DAILY clonazepam 1 mg PO TID cyanocobalamin (vitamin B-12) 1,000 mcg PO DAILY ergocalciferol (vitamin D2) 1,250 mcg PO QMONTH furosemide 80 mg PO SUTUTHSA lamotrigine 75 mg PO QAM lisinopril 20 mg PO DAILY metoprolol succinate ER 25 mg PO DAILY oxcarbazepine 600 mg PO BID prochlorperazine maleate 5 mg PO BID sodium polystyrene sulfonate 15 grams PO SUTUTHSA trazodone 50 mg PO BEDTIME HPI 3 month follow up HPI Details Igor is a 73-year-old male with past medical history of hypertension, smoking, end-stage renal disease and on dialysis, who was admitted to [facility] 02/2023 with increased shortness of breath and found to have pneumonia, pericardial effusion. During his admission he had a brief episode of atrial flutter. He was not started on anticoagulation. He was put on antibiotics and steroids and follow-up outpatient limited echo showed improvement in his effusion. Today he had reports he has been doing generally well since his last visit. He has chronic activity intolerance due to bilateral osteoarthritis in his knees. He ambulates with a cane. He has been mostly sedentary. He reports his breathing as comfortable. No chest discomfort at rest or with activity. No palpitations, presyncope, syncope, falls. If he gets up quickly in the morning he will notice some lightheadedness. He has been taking all his meds as directed. Ex-/proxy is present. She tells me they share a dog and he does try to do some short walks with the dog. [facility] Medical History Atrial flutter Nicotine dependence, cigarettes, uncomplicated AV fistula Essential hypertension Mood disorder Effusion, pericardium Pleural effusion, left Chronic kidney 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 Surgical History History of colonoscopy History of hernia repair History of parathyroidectomy Social History Household Members: None Housing: Apartment Do you presently have visiting nurse or other home services: Yes (Housekeeping services) Alcohol intake: former Patient Tobacco Use Status: Current everyday Tobacco user Tobacco use type: Cigarette Cigarette Packs Per Day: 0.5 Cigarettes Per Day: 10.0 Years Smoked: 60 +/- e-Cigarette/Vaping Use: Currently Using Second Hand Smoke Exposure: Yes service: No Review of Systems Const All systems reviewed & are unremarkable except as noted in HPI and below ENT Denies dizziness Card Denies chest pain, Denies chest pain at rest, Denies chest pain with activity, Denies rapid heart rate, Denies pedal edema, Denies edema, Denies leg edema, Denies lightheadedness, Denies palpitations, Denies dyspnea, Denies dyspnea on exertion and Denies orthopnea Resp Denies cough, Denies dyspnea and Denies dyspnea on exertion GI Denies hematochezia and Denies change in stool character Musc Reports abnormal gait, Reports limited range of motion, Denies muscle cramps, Denies muscle weakness, Denies numbness, Denies radiating pain into limb, Denies stiffness and Denies tingling Neuro Reports abnormal gait, Denies dizziness, Denies numbness and Denies tingling Endo Denies palpitations Physical Exam Vital Signs: Last Vital Signs Pulse 67 05/31/23 14:04 BP 120/72 05/31/23 14:04 BMI result Body Mass Index 22.4 Const General: cooperative, comfortable and no acute distress Orientation/consciousness: patient oriented x3 Neck Neck: Yes normal visual inspection Resp Effort & Inspection: normal respiratory effort Auscultation: clear to auscultation bilaterally, no crackles, no rales, no rhonchi and no wheezes Cardio Jugular venous distension: no JVD Rate: regular rate Rhythm: regular rhythm Heart sounds: S1 normal heart sound present, S2 normal heart sound present, no murmurs and no rubs Neuro General: patient oriented x3 Extrem General: Yes normal to inspection Psych Appearance: grossly normal Mental Status: mental status grossly normal Speech and movement: Normal speech and movement present Assessment & Plan Assessment & Plan (1) Effusion, pericardium: Code(s): I31.39 - Other pericardial effusion (noninflammatory) Plan: Recent [facility] admission for shortness of breath. Found to have pneumonia, pericardial effusion. Limited echo done on 03/01/2023 shows EF 45-50%, small to moderate pericardial effusion, no tamponade. Repeat echo the following day showed no change. He was managed medically with antibiotics and steroids. N otes indicate that his effusion may be related to the pneumonia. He also has end-stage renal disease and is undergoing dialysis. An outpatient limited echo done on 03/11/2023 shows EF 45-50%, trivial pericardial effusion. Today he reports his breathing has normalized for him but he continues to have some fatigue. On examination he does not have any clinical signs indicating heart failure. He still has mild cardiomyopathy for unclear reason. A full echocardiogram was completed on 05/19/2023 showing EF 45-50%, severe dilation of the left atrium, moderate MR, moderate increase in the RV systolic pressure, dilated ascending aorta of 4.1 cm. A nuclear stress test as been ordered to further evaluate reduced EF. Continues on Lasix, no med changes made. (2) Atrial flutter: Code(s): I48.92 - Unspecified atrial flutter Plan: Brief episode of atrial flutter during last hospital admission. He was thought to be related to acute illness. He was put on metoprolol as stated above. Anticoagulation was not indicated. Today he reports he has not felt any heart palpitations. Holter monitor done on 05/19/2023 for 3 days shows sinus rhythm, average heart rate 75, frequent PVCs, 7.4% of time, short NSVT runs, longest 7 beats, brief SVT, longest 12 beats. He had not been taking metoprolol, metoprolol XL 25 mg daily was added following Holter results. Pulse is regular on exam today. His frequent PVCs could be cause for his reduced EF. Will be checking nuclear stress test as above. Chads Vasc score of 2 with age and hypertension. If he is found to have recurrent atrial fibrillation/ flutter going forward then will require anticoagulation. (3) Enlarged pulmonary artery: Comment: (noted on 01/[address]) Code(s): I28.8 - Other diseases of pulmonary vessels Plan: Seen on recent CT scan at time of last admission. Echocardiogram shows dilated ascending aorta 4.1 cm. Blood pressure is well controlled. We will follow with periodic echoes (4) Essential hypertension: Code(s): I10 - Essential (primary) hypertension Plan: Well controlled at present. Taking all meds as directed. Coding Level of Care Code Est Pt Level 4 (74394) Diagnoses Effusion, pericardium I31.39 Atrial flutter I48.92 Enlarged pulmonary artery I28.8 Essential hypertension I10 Time Spent (min) 28
== END 2023-05-31 14:43 | disposition home or self-care (01) ==
PROVIDERS: PCP Family Medicine; Visit Provider Nurse Practitioner Family
DX: I31.39 Other pericardial effusion (noninflammatory) (principal); I48.92 Unspecified atrial flutter; I28.8 Other diseases of pulmonary vessels; I10 Essential (primary) hypertension
CPT/HCPCS: 99214

== ENCOUNTER → 2023-05-31 13:44 | Outpatient (BNVA) | payer MEDICARE, OTHER, SELFPAY | PROVIDERS: PCP Family Medicine; Visit Provider Nurse Practitioner Family | DX: I31.39 Other pericardial effusion (noninflammatory) (principal); I48.92 Unspecified atrial flutter; I28.8 Other diseases of pulmonary vessels; I10 Essential (primary) hypertension | CPT/HCPCS: 99212 ==

== ENCOUNTER → 2023-07-26 07:56 | Outpatient (REF) | payer MEDICARE, OTHER, SELFPAY ==
--- NOTE | ~2023-07-26 | NM_ITS ---
Lexiscan Myocardial perfusion study Indication: Atrial flutter, multiple risk factors, assess for coronary disease and ischemia Technique: The patient was brought in for a Lexiscan perfusion study on 07/26/2023 and was injected 0.4 mg of Lexiscan intravenously. Within a minute of this injection 25 mCi of sestamibi was given intravenously. Images were obtained using the SPECT gamma camera interlaced with the gating device. Images were obtained in supine position. Resting perfusion study was performed on 08/18/2023. Patient was administered 25 mCi of sestamibi intravenously at rest. Images were then obtained in supine position. Images were processed with the software and compared side to side in short axis, horizontal long axis and vertical long axis views. DLP not available due to technical issues. Findings: Raw acquisition reviewed. The stress perfusion study showed diminished tracer uptake along the inferior wall. With CT attenuation correction, there is improvement suggestive of diaphragmatic attenuation artifact. The gated study shows diminished LV systolic function with calculated LVEF of 46%. LV cavity is dilated in size. The gated study shows globally reduced wall thickening and contraction of segments. Resting study shows diminished tracer uptake along the inferior wall. With CT attenuation correction, there is improvement suggestive of diaphragmatic attenuation artifact. Gating at rest reveals globally reduced wall motion with ejection fraction at 51%. The findings are consistent with fixed inferior perfusion defect suspected to be from diaphragmatic attenuation artifact; no clear reversible defects. NM/NM cardiolite stress test Impression: 1. Myocardial perfusion imaging study shows probably normal myocardial perfusion. No definitive findings of ischemia or infarction. 2. Gated LVEF is 46% during stress and 51% during rest. 3. Transient ischemic dilatation not present. EKG component of the test reported separately.
--- NOTE | 2023-07-26 07:58 | CA_ITS ---
Acquisition Time: 2023-07-26 08:06:25 Total Exercise Time: 00:02:00 Test Indications: AFLUTTER Medications: SEE H Protocol: LEXISCAN Max HR: 075 BPM 51% of Pred: 146 BPM Max BP: 160/066 mmHG Max Work Load: 1.0 METS Pharmacoligical stress test with Lexiscan injection while sitting and marching in place, without anginal symptoms. with isolated PVCs, with normotensive response to injection, with nondiagnoisitic EKGs. Aminophylline 75mg IVP given to reverse Lexiscan. Nuclear images pending. Test reviewed with Dr. Bowden Referred By: Dian Cha Overread By: Amy Cardenas
== END ==
LOC: HO.CARD 07:56
PROVIDERS: PCP Family Medicine; Visit Provider Nurse Practitioner Family
DX: I42.9 Cardiomyopathy, unspecified (principal); I47.29 Other ventricular tachycardia
CPT/HCPCS: 78452; 93017; A9500; J0280; J2785

== ENCOUNTER → 2023-07-26 07:58 | Outpatient (BNV) | payer MEDICARE, OTHER, SELFPAY | PROVIDERS: PCP Family Medicine; Visit Provider Nurse Practitioner | DX: I48.92 Unspecified atrial flutter (principal) | CPT/HCPCS: 78452; 93016; 93018 ==

== ENCOUNTER 2023-07-31 09:46 | Inpatient (IN) | payer MEDICARE, OTHER, SELFPAY ==
[2023-07-31] VITALS (14 sets, daily range): BP systolic 134–180; BP diastolic 69–90; PULSE 70–96; RESP 18–41; TEMP 36.6–37.4; O2SAT 88–100; BMI 22.9
--- NOTE | ~2023-07-31 | XR_ITS ---
EXAMINATION: XR CHEST CLINICAL INFORMATION: Cough, shortness of breath COMPARISON: Chest x-ray on 02/28/2023 TECHNIQUE: Frontal view of the chest was obtained. FINDINGS: The cardiac silhouette is normal. There is mild diffuse bronchial wall thickening on a background of chronic interstitial disease. There are no areas of consolidation. There are no pleural effusions or pneumothoraces. The bones and soft tissues are unremarkable for the patient's age. XR/XR chest 1V IMPRESSION: Bronchial wall thickening may be infectious and/or inflammatory in etiology.
--- NOTE | ~2023-07-31 | CT_ITS ---
EXAMINATION: CT HEAD WITHOUT CONTRAST CLINICAL INFORMATION: Fall head strike COMPARISON: None TECHNIQUE: Contiguous axial imaging was performed from the skull base to vertex without intravenous administration of contrast. This CT examination was performed using dose optimization techniques as appropriate, variously including the following: *Automated exposure control *Adjustment of mA and/or kV according to patient size (this includes techniques or standardized protocols for targeted exams where dose is matched to indication/reason for exam; i.e. extremities or head) *Use of iterative reconstruction technique DLP: 1718 mGy-cm FINDINGS: Limited evaluation of the cranial apex secondary to patient motion artifact. There is no evidence of acute intracranial hemorrhage or territorial infarction. Chronic white matter small vessel ischemic changes. Mild cerebral atrophy. No abnormal mass effect or midline shift is seen. Osman to white matter differentiation is well preserved. No extra-axial fluid collections are identified. The ventricles are normal in size. There is no abnormal attenuation within the brain parenchyma. The osseous structures and soft tissues are normal. The mastoid air cells and visualized portions of the paranasal sinuses are well aerated. CT/CT cervical spine wo IV con IMPRESSION: 1. Limited evaluation of the cranial apex secondary to patient motion artifact. 2. No acute intracranial pathology. 3. Chronic white matter small vessel ischemic changes. EXAMINATION: Noncontrast CT scan of the cervical spine. INDICATION: Fall neck pain COMPARISON: None. TECHNIQUE: Helical, multidetector axial images were obtained from the occiput to the upper thorax. Coronal and sagittal reformats of the cervical spine were provided for interpretation. DLP: 1718 mGy-cm FINDINGS: No acute fractures or dislocations of the cervical spine are seen. Straightening of normal cervical curvature which may be secondary to patient positioning versus muscle spasm. Grade 1 anterolisthesis of C4 on C5. Multilevel degenerative changes. Anatomic alignment and positioning of the vertebral bodies and posterior elements is noted. The atlantoaxial joint and craniovertebral articulations are normal without evidence of subluxation. There is no prevertebral soft tissue swelling. Surgical material in the region of the lower neck/upper mediastinum. Visualized portions of the lung veloz are unremarkable. IMPRESSION: 1. No acute visible fracture or dislocation. 2. Straightening of normal cervical curvature which may be secondary to patient positioning versus muscle spasm. 3. Grade 1 anterolisthesis of C4 on C5. 4. Multilevel degenerative changes.
--- NOTE | ~2023-07-31 | CT_ITS ---
EXAMINATION: CT CHEST WITHOUT CONTRAST CLINICAL INFORMATION: Shortness of breath COMPARISON: CTA chest 02/06/2023. TECHNIQUE: Multidetector volumetric CT imaging of the chest was done. Axial MIP volume rendering provided. Sagittal and coronal reformatted images were obtained. This CT examination was performed using dose optimization techniques as appropriate, variously including the following: *Automated exposure control *Adjustment of mA and/or kV according to patient size (this includes techniques or standardized protocols for targeted exams where dose is matched to indication/reason for exam; i.e. extremities or head) *Use of iterative reconstruction technique DLP: 444.53 mGy-cm FINDINGS: LUNGS: Central airways patent. Moderate diffuse bronchial wall thickening with mild lower lobe endobronchial mucus impaction. Diffuse upper lobe predominance with interlobular septal thickening. Mild upper lung predominant centrilobular emphysema. Moderate bilateral lower lobe dependent relaxation atelectasis. No focal consolidation. Respiratory motion artifact limits assessment for focal lung nodules, though no suspicious nodules identified. PLEURA: Small right greater than left dependent simple pleural effusions. MEDIASTINUM: Four-chamber cardiomegaly. Markedly dilated main pulmonary artery, measuring up to 4.2 cm in maximal diameter, compatible with chronic pulmonary arterial hypertension. Aorta normal in caliber. No pericardial effusion. No mediastinal lymphadenopathy. Lack of intravenous contrast limits evaluation for hilar lymphadenopathy. No bulky hilar lymphadenopathy appreciated. CORONARY ARTERY CALCIFICATION: No significant coronary artery calcification appreciated on this exam. CHEST WALL/AXILLA: No axillary lymphadenopathy. UPPER ABDOMEN: Redemonstrated numerous bilateral renal cysts for which no follow-up imaging is recommended. Unchanged prominent main pancreatic duct. OSSEOUS STRUCTURES: Mild degenerative spondylosis of the visualized upper lumbar spine. CT/CT chest wo IV con IMPRESSION: 1. Interstitial pulmonary edema with small, right greater than left simple pleural effusions and moderate bilateral lower lobe dependent atelectasis. 2. Mild upper lung predominant centrilobular emphysema. No focal consolidation. 3. Cardiomegaly. Markedly dilated main pulmonary artery, compatible with chronic pulmonary arterial hypertension.
--- NOTE | 2023-07-31 10:49 | ECG_ITS ---
Test Reason : DIZZINESS Blood Pressure : / mmHG Vent. Rate : 070 BPM Atrial Rate : 070 BPM P-R Int : 206 ms QRS Dur : 088 ms QT Int : 446 ms P-R-T Axes : 068 -09 095 degrees QTc Int : 481 ms Artifact in tracing Normal sinus rhythm Possible Left atrial enlargement Left ventricular hypertrophy ( Sokolow-Dominique , Romhilt-Montemayor ) Nonspecific ST and T wave abnormality Prolonged QT Abnormal ECG When compared with ECG of 01-MAR-2023 11:56, Premature ventricular complexes are no longer Present Referred By: Generic ED Physician Electronically Signed By:SHERRIE HAWK
[2023-07-31 11:05] LABS: MANUAL DIFF FLAG NO
--- NOTE | 2023-07-31 11:06 | PC.NURSE ---
patient a&ox3, iv inserted, labs drawn, swabs obtained, ekg obtained, library monitor applied nsr on monitor, pt is on 3L NC- desats on room air to 88%- not home O2 dependent, lungs have rhonchi with cough, diminished bases and expiratory wheezing throughout. pt goes to dialysis m/w/f, lt av fistula + bruit/thrill, family at bedside, cxr ordered, call perez within reach, will continue to monitor
[2023-07-31 11:08] LABS: Basophils Absolute Auto 0.1 X10*3/uL (0.0-0.2); Basophils Percent Auto 0.9 % (0-2); Eosinophils Percent Auto 0.7 % (0-4); Hematocrit 33.9 % (42.0-52.0); Hemoglobin 11.5 g/dl (14.0-18.0); Imm Gran Abs Auto 0.02 X10*3/uL (0.00-0.03); Imm Gran Pct Auto 0.4 % (0.0-0.4); Lymphocytes Absolute Auto 0.4 X10*3/uL (1.2-4.9); Lymphocytes Percent Auto 6.6 % (20-40); Mean Corpuscular HGB Conc 33.9 g/dl (31.0-36.0); Mean Corpuscular Hemoglobin 31.5 pg (27.0-33.0); Mean Corpuscular Volume 92.9 fL (80.0-98.0); Mean Platelet Volume 10.3 fL (9.4-12.4); Monocytes Absolute Auto 0.4 X10*3/uL (0.1-1.2); Monocytes Percent Auto 6.9 % (2-11); Neutrophils Absolute Auto 4.6 x10*3/uL (2.0-8.3); Neutrophils Percent Auto 84.5 % (45-73); Platelet Count 155 X10*3/uL (160-400); Red Blood Count 3.65 X10*6/uL (4.60-5.80); Red Cell Distribution Width 14.9 % (11.0-16.0); White Blood Count 5.5 X10*3/uL (4.8-10.8)
[2023-07-31 11:22] LABS: COVID-19 Test Negative (Negative); IDNOW Serial# 152EDE1D
[2023-07-31 11:34] LABS: Anion Gap 17 (12-20); Blood Urea Nitrogen 24 mg/dL (9-16); Calcium 8.9 mg/dL (8.4-10.2); Carbon Dioxide 31 mmol/L (22-29); Chloride 93 mmol/L (96-108); Creatinine Clr Calc Pharmacy 11.5; Estimated Glomerular Filt Rate 10; Glucose Random 85 mg/dL (60-115); Potassium 4.3 mmol/L (3.3-5.1); Sodium 137 mmol/L (135-145)
[2023-07-31 11:35] LABS: B Type Natriuretic Peptide 4296 pg/mL (<100)
[2023-07-31 11:37] LABS: Troponin-I High Sensitivity 66.7 ng/L (<3.5-35.0)
[2023-07-31 11:39] LABS: IDNOW Serial# 152EDE1D; Influenza A Negative (Negative); Influenza B2 Negative (Negative)
--- NOTE | 2023-07-31 13:12 | PC.NURSE ---
this nurse was in the room with patient in 14 and noticed noise coming from this patients bed, upon evaluating the patient had taken off hospital attire, ripped off tele leads and taken off O2, pt stated he was ready to leave because nobody wants to see him. patients O2 sat was 83% on room air, this nurse placed 2L O2 nc back on patient which increased to 88%, pt was increased to 4L NC O2 sat increased to 94%, pt has productive cough, pt was boosted in the bed, call perez within reach, will continue to monitor
--- NOTE | 2023-07-31 13:29 | ED.GENADULT ---
HPI - General Adult General Chief complaint: Fall Stated complaint: DIZZY W/FALL,90% RA, 95% 2LPM PER EMS Time Seen by Provider: 07/31/23 13:27 Source: patient and EMS Mode of arrival: EMS Limitations: no limitations History of Present Illness HPI narrative: 73-year-old male history of nonsustained ventricular tachycardia, av fistula, mood disorder, hypertension, atrial flutter, CKD on dialysis Tuesday, Tuesday, Tuesday, last session was Tuesday presenting to the emergency department status post fall at home, patient reports he felt lightheaded/dizzy, fell to the ground, denies head strike, loss of consciousness or any injuries associated with fall. He just reports he does not feel well and he feels dizzy. He reports frequent falls at home. Shortness of breath worsening. Denies chest pain, nausea, vomiting, abdominal pain, vision changes, weakness. NIH stroke scale 0. GCS 15 Related Data Home Medications Medication Instructions Recorded Confirmed ascorbic acid (vitamin C) 500 mg 500 mg PO DAILY 02/28/23 05/31/23 tablet clonazepam 1 mg tablet 1 mg PO TID 02/28/23 05/31/23 cyanocobalamin (vitamin B-12) 1,000 mcg PO DAILY 02/28/23 05/31/23 1,000 mcg tablet ergocalciferol (vitamin D2) 1,250 1,250 mcg PO QMONTH 02/28/23 05/31/23 mcg (50,000 unit) capsule [facility] 80 mg tablet [facility] 02/28/23 05/31/23 lamotrigine 25 mg tablet 75 mg PO QAM 02/28/23 05/31/23 lisinopril 20 mg tablet 20 mg PO DAILY 02/28/23 05/31/23 oxcarbazepine 600 mg tablet 600 mg PO BID 02/28/23 05/31/23 prochlorperazine maleate 5 mg 5 mg PO BID 02/28/23 05/31/23 tablet sodium polystyrene sulfonate 15 g PO SUTUTHSA 02/28/23 05/31/23 trazodone 50 mg tablet 50 mg PO BEDTIME 02/28/23 05/31/23 alclometasone 0.05 % topical cream 1 appl topical PRN 03/15/23 05/31/23 Previous Rx's Medication Instructions Recorded metoprolol succinate 25 mg 25 mg PO DAILY #30 tabs 05/27/23 tablet,extended release 24 hr Allergies Allergy/AdvReac Type Severity Reaction Status Date / Time bupropion [From WELLBUTRIN] AdvReac Unknown CONSTIPATIO Verified 05/31/23 14:08 N NSAIDS (Non-Steroidal AdvReac Unknown RENAL Verified 05/31/23 14:08 Anti-Inflamma [NSAIDS (NON-STEROIDAL ANTI-INFLAMMA] [id number] Reductase AdvReac Unknown UNK Verified 05/31/23 14:08 Inhibitor [[id number] REDUCTASE INHIBITOR] Review of Systems Review of Systems: Constitutional : No Weight loss, No Fever, No Chills, No Fatigue, No Malaise ENT/Mouth : No sore throat, No Rhinorrhea Eyes: No Eye Pain, No Swelling, No Redness Cardiovascular : No Chest Pain, + SOB, No Dyspnea on Exertion, No Orthopnea, No Edema, No Palpitations Respiratory : No Cough, No Sputum, No Wheezing Gastrointestinal : No Nausea, No Vomiting, No Diarrhea, No Constipation, No abdominal Pain, No Hematochezia, No Melena Genitourinary : No Dysuria, No Urinary Frequency, No Hematuria, Musculoskeletal : No joint pain, No Myalgias, No Joint Swelling Skin : No Skin Lesions, No rash Neuro : No Weakness, No Numbness, + Dizziness, No Headache Psych : No Anxiety/Panic, No Depression All other systems reviewed and are negative Yes all other systems are reviewed and are negative PMFSH Past Medical History Attestation statement: The following information was validated with the patient. Source: old records reviewed and nursing notes reviewed Onset Date is defined in the Problem List Problems that require an onset date and time if occurred within 24 hrs of arrival to the ED Aortic Dissection and Rupture; Neurologic impairment; Cardiopulmonary Arrest; Endotracheal Intubation; Insertion or Replacement of Mechanical Circulatory Assist Device Medical History Atrial flutter Nicotine dependence, cigarettes, uncomplicated AV fistula Essential hypertension Mood disorder Effusion, pericardium Pleural effusion, left Chronic kidney 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 Surgical History History of colonoscopy History of hernia repair History of parathyroidectomy Social History Social History Household Members: None Housing: Apartment Do you presently have visiting nurse or other home services: Yes (Housekeeping services) Alcohol intake: former Comment: PT REFUSING Patient Tobacco Use Status: Current everyday Tobacco user Tobacco use type: Cigarette Cigarette Packs Per Day: 0.5 Cigarettes Per Day: 10.0 Years Smoked: 60 +/- Smoked in Last 30 Days: Yes e-Cigarette/Vaping Use: Currently Using Second Hand Smoke Exposure: Yes Use of substances other than those prescribed or required for medical reasons: No Advance Directives: No Advance Directives Information Provided: No service: No Physical Exam ED Vital Signs: Vital Signs - 24 hr 07/31/23 09:56 07/31/23 10:00 07/31/23 11:30 Temperature 98.7 F Pulse Rate 70 Respiratory Rate 18 22 H Blood Pressure 139/69 Pulse Oximetry 88 L 95 Oxygen Delivery Method Room Air Nasal Cannula Oxygen Flow Rate 3 07/31/23 11:53 07/31/23 13:42 07/31/23 14:04 Temperature 98.7 F 97.9 F Pulse Rate 70 80 Respiratory Rate 22 H 41 H 22 H Blood Pressure 171/80 H 180/86 H Pulse Oximetry 95 98 Oxygen Delivery Method Nasal Cannula BiPAP Oxygen Flow Rate 3 07/31/23 14:12 07/31/23 14:23 07/31/23 15:16 Temperature Pulse Rate 90 85 Respiratory Rate 24 H 27 H 24 H Blood Pressure 165/77 H Pulse Oximetry 91 L Oxygen Delivery Method Nasal Cannula Oxygen Flow Rate 4 07/31/23 15:58 07/31/23 16:45 Temperature Pulse Rate 83 82 Respiratory Rate 22 H 22 H Blood Pressure 176/77 H 167/79 H Pulse Oximetry 100 97 Oxygen Delivery Method Oxymask Oxymask Oxygen Flow Rate 5 5 BMI result Body Mass Index 22.9 hypoxia noted Appearance: Alert.? Oriented X3.? + acute distress.? Head: Normocephalic, atraumatic, no step-offs or deformities Eyes: Pupils equal, round and reactive to light.? ENT: Pharynx normal.? Neck: Normal inspection.? Neck supple.? CVS: Normal heart rate and rhythm.? Pulses normal.? Respiratory: + mild respiratory distress.? Breath sounds diminished bilaterally..? Abdomen: Soft and nontender.? Skin: Skin warm and dry.? Normal skin color.? Normal skin turgor.? Extremities: No lower extremity edema.? No calf ttp. 5/5 strength to bilateral upper and lower extremities Neuro: Oriented X 3.? No motor deficit.? No sensory deficit. CN 2-12 intact . Normal [id number], [id number], negative Romberg and pronator drift. Course Reevaluation(s) Reevaluation #1: CBC with a normocytic anemia appears to be around patient's baseline. Chemistry with CKD, appears to be around patient's baseline this is not an acute finding. Patient's troponin 66.7 this is likely secondary to chronic kidney disease unlikely acute patient does not have any chest pain at this time. BNP 4296 likely secondary to fluid overload patient last received dialysis on Tuesday. Will give Lasix and place patient on BiPAP. Flu and COVID negative. Chest x-ray with bronchial wall thickening infectious versus inflammatory. Time: 13:31 Reevaluation #2: Patient ripping off BiPAP. Will reach out to Nephrology. Patient becoming agitated. Soft restraints and fentanyl ordered to slow respiratory rate Time: 13:59 Reevaluation #3: Nephrology does not feel like there is an emergent need to do hemodialysis. Suggests finding secondary cause. Doing better after bipap and NC . Now 91 % on 4 L Time: 15:41 Additional Reevaluation(s): Second trope not meeting delta criteria I do not suspect this is cardiac in origin. Normal ammonia. CT scans pending. Again I repeated neurological assessment nonfocal NIH stroke scale 0. My attending Dr. Roberson at the bedside. Patient now much more alert, he is having a persistent cough he states it has been going on for awhile. Will order antibiotics at this time as well as blood cultures, lactic acid Sign out to Frank LIRA Patient received in sign-out at change of shift pending CT scans that did not show any acute findings with the exception of pulmonary edema. The patient has received Lasix, nitroglycerin, he is well-appearing on OxyMask with an oxygen saturation of approximately 95%. Will discuss with the hospitalist for admission at this time. The patient has already received antibiotics as well though there was no focal consolidation seen on CT scan Medications Administered Discontinued Medications Generic Name Dose Route Start Last Admin Trade Name Chuckyq PRN Reason Stop Dose Admin Albuterol/Ipratropium 3 ml 07/31/23 14:05 07/31/23 14:11 Albuterol/Iprat 2.5/0.5mg 3 Ml Ampul.Neb INHALE 07/31/23 14:06 3 ml ONCE ONE Administration Fentanyl 25 mcg 07/31/23 13:52 07/31/23 14:00 Fentanyl Citrate/Pf 100 Mcg/2 Ml Vial IVPUSH 07/31/23 13:53 25 mcg ONCE ONE Administration Protocol Furosemide 40 mg 07/31/23 13:28 07/31/23 13:45 Furosemide 40 Mg/4 Ml Vial IVPUSH 07/31/23 13:29 40 mg ONCE ONE Administration Protocol Ceftriaxone Sodium 1 gm/ 50 mls @ 100 mls/hr 07/31/23 16:07 07/31/23 17:39 Sodium Chloride IV 07/31/23 16:36 Infused ONCE ONE Infusion Azithromycin 500 mg/ Sodium 250 mls @ 125 mls/hr 07/31/23 16:07 07/31/23 17:44 Chloride IV 07/31/23 18:06 125 mls/hr ONCE ONE Administration Nitroglycerin 0.5 inch 07/31/23 14:22 07/31/23 14:39 Nitroglycerin 2 % Oint 1 Gm Packet TRANSDERMA 07/31/23 14:23 0.5 inch ONCE ONE Administration Nitroglycerin 1 inch 07/31/23 15:17 07/31/23 15:33 Nitroglycerin 2 % Oint 1 Gm Packet TRANSDERMA 07/31/23 15:18 1 inch ONCE ONE Administration Medical Decision Making Medical Decision Making [facility] Narrative: 73-year-old male presents with shortness of breath, frequent falls at home. Physical exam moderate respiratory distress and diminished breath sounds bilaterally. Patient hypoxic on exam. History and physical exam concerning for fluid overload status/CHF. Will rule out metabolic derangements. Will also rule out traumatic injury to head, neck. Will rule out pneumonia and viral illness. NIHSS- 0 Plan at this time labs Differential Diagnosis Differential Diagnoses: The differential diagnosis associated with the presentation includes History and physical exam concerning for fluid overload status/CHF. Will rule out metabolic derangements. Will also rule out traumatic injury to head, neck. Will rule out pneumonia and viral illness. Admission/Observation Consideration of admission/observation: Escalation of care including admission/observation considered Consult Healthcare Provider Management of the patient was discussed with: Pediatric Physician Assistant (Nephro ) Lab Data [facility] Lab Attestation statement: I reviewed the patient's lab results. Negative for flu and COVID CBC significant for low plt 155. Low RBC, Hgb and Hct all at patients baseline. CMP significant for elevated BUN 24 and Cr 5.76, all at patients baseline. Trop elevated 66.7, 90.6 BNP elevated 4296 Ammonia normal 14 U tox pending Influenza and COVID negative 07/31/23 11:02 07/31/23 11:02 Labs: Lab Results 07/31/23 07/31/23 07/31/23 Range/Units 11:02 14:13 14:33 WBC 5.5 (4.8-10.8) X10*3/uL RBC 3.65 L (4.60-5.80) X10*6/uL Hgb 11.5 L (14.0-18.0) g/dl Hct 33.9 L (42.0-52.0) % MCV 92.9 (80.0-98.0) fL MCH 31.5 (27.0-33.0) pg MCHC 33.9 (31.0-36.0) g/dl RDW 14.9 (11.0-16.0) % Plt Count 155 L D (160-400) X10*3/uL MPV 10.3 (9.4-12.4) fL Immature Gran % (Auto) 0.4 (0.0-0.4) % Neut % (Auto) 84.5 H (45-73) % Lymph % (Auto) 6.6 L (20-40) % [place] % (Auto) 6.9 (2-11) % Eos % (Auto) 0.7 (0-4) % Baso % (Auto) 0.9 (0-2) % Lymph # (Auto) 0.4 L (1.2-4.9) X10*3/uL [place] # (Auto) 0.4 (0.1-1.2) X10*3/uL Eos # (Auto) 0.0 (0.0-0.4) X10*3/uL Baso # (Auto) 0.1 (0.0-0.2) X10*3/uL Abs Immat Gran (auto) 0.02 (0.00-0.03) X10*3/uL Absolute Neuts (auto) 4.6 (2.0-8.3) x10*3/uL Absolute Nucleated RBC 0.000 (0.0-0.012) X10*3/uL Nucleated RBC % (auto) 0.0 (0.0-0.2) /100WBC O2 Saturation % ABG pH at Pt Temp (7.35-7.45) ABG pCO2 at Pt Temp (32-45) mmHg ABG pO2 at Pt Temp (83-108) mmHg ABG HCO3 (22-26) mmol/L ABG Base Excess (Actual) mmol/L Sodium 137 (135-145) mmol/L Potassium 4.3 (3.3-5.1) mmol/L Chloride 93 L (96-108) mmol/L Carbon Dioxide 31 H (22-29) mmol/L Anion Gap 17 (12-20) BUN 24 H (9-16) mg/dL Creatinine 5.76 H* (0.5-1.4) mg/dL Estim Creat Clear Calc 11.5 Estimated GFR 10 Random Glucose 85 (60-115) mg/dL Lactic Acid (0.5-2.0) mmol/L Calcium 8.9 (8.4-10.2) mg/dL Ammonia 14 (13-55) umol/L Troponin I High Sens 66.7 H D 90.6 H (<3.5-35.0) ng/L B-Natriuretic Peptide 4296 H (<100) pg/mL Urine Color Urine Appearance Urine pH (5.0-9.0) Ur Specific [place] (1.005-1.025) Urine Protein (Neg-Trace) mg/dL Urine Glucose (UA) (Negative) mg/dL Urine Ketones (Negative) mg/dL Urine Blood (Negative) Urine Nitrite (Negative) Ur Leukocyte Esterase (Negative) Urine RBC (0-2) /HPF Urine WBC (0-5) /HPF Ur Squamous Epith Cells (0-2) /HPF Urine Bacteria (None Seen) Hyaline Casts (0-2) /LPF Urine Opiates Screen (Not Detect) Urine Fentanyl Screen (Not Detect) Ur Barbiturates Screen (Not Detect) Ur Phencyclidine Scrn (Not Detect) Ur Amphetamines Screen (Not Detect) U Benzodiazepines Scrn (Not Detect) Urine Cocaine Screen (Not Detect) U Marijuana (THC) Screen (Not Detect) Ethyl Alcohol < 10 mg/dL COVID-19 (KARL) Negative (Negative) COVID-19 Clin Com See Note Influenza Type A (JULIA) Negative (Negative) Influenza Type B (JULIA) Negative (Negative) Influenza A & B Note See Note 07/31/23 07/31/23 07/31/23 Range/Units 14:49 15:14 16:33 WBC (4.8-10.8) X10*3/uL RBC (4.60-5.80) X10*6/uL Hgb (14.0-18.0) g/dl Hct (42.0-52.0) % MCV (80.0-98.0) fL MCH (27.0-33.0) pg MCHC (31.0-36.0) g/dl RDW (11.0-16.0) % Plt Count (160-400) X10*3/uL MPV (9.4-12.4) fL Immature Gran % (Auto) (0.0-0.4) % Neut % (Auto) (45-73) % Lymph % (Auto) (20-40) % [place] % (Auto) (2-11) % Eos % (Auto) (0-4) % Baso % (Auto) (0-2) % Lymph # (Auto) (1.2-4.9) X10*3/uL [place] # (Auto) (0.1-1.2) X10*3/uL Eos # (Auto) (0.0-0.4) X10*3/uL Baso # (Auto) (0.0-0.2) X10*3/uL Abs Immat Gran (auto) (0.00-0.03) X10*3/uL Absolute Neuts (auto) (2.0-8.3) x10*3/uL Absolute Nucleated RBC (0.0-0.012) X10*3/uL Nucleated RBC % (auto) (0.0-0.2) /100WBC O2 Saturation 96.0 % ABG pH at Pt Temp 7.54 H (7.35-7.45) ABG pCO2 at Pt Temp 37 (32-45) mmHg ABG pO2 at Pt Temp 77 L (83-108) mmHg ABG HCO3 32 H (22-26) mmol/L ABG Base Excess (Actual) 9.4 mmol/L Sodium (135-145) mmol/L Potassium (3.3-5.1) mmol/L Chloride (96-108) mmol/L Carbon Dioxide (22-29) mmol/L Anion Gap (12-20) BUN (9-16) mg/dL Creatinine (0.5-1.4) mg/dL Estim Creat Clear Calc Estimated GFR Random Glucose (60-115) mg/dL Lactic Acid 1.4 (0.5-2.0) mmol/L Calcium (8.4-10.2) mg/dL Ammonia (13-55) umol/L Troponin I High Sens (<3.5-35.0) ng/L B-Natriuretic Peptide (<100) pg/mL Urine Color Yellow Urine Appearance Clear Urine pH >= 9.0 (5.0-9.0) Ur Specific [place] 1.010 (1.005-1.025) Urine Protein 100 (2+) H (Neg-Trace) mg/dL Urine Glucose (UA) Negative (Negative) mg/dL Urine Ketones Negative (Negative) mg/dL Urine Blood Trace H (Negative) Urine Nitrite Negative (Negative) Ur Leukocyte Esterase Negative (Negative) Urine RBC 3-5 H (0-2) /HPF Urine WBC 0-5 (0-5) /HPF Ur Squamous Epith Cells 0-2 (0-2) /HPF Urine Bacteria None Seen (None Seen) Hyaline Casts 0-2 (0-2) /LPF Urine Opiates Screen Not Detected (Not Detect) Urine Fentanyl Screen Not Detected (Not Detect) Ur Barbiturates Screen Not Detected (Not Detect) Ur Phencyclidine Scrn Not Detected (Not Detect) Ur Amphetamines Screen Not Detected (Not Detect) U Benzodiazepines Scrn Not Detected (Not Detect) Urine Cocaine Screen Not Detected (Not Detect) U Marijuana (THC) Screen Not Detected (Not Detect) Ethyl Alcohol mg/dL COVID-19 (KARL) (Negative) COVID-19 Clin Com Influenza Type A (JULIA) (Negative) Influenza Type B (JULIA) (Negative) Influenza A & B Note ABG Data ABG Results: 14:49 O2 sat: 96 pH: 7.54 pCO2: 37 pO2: 77 HCO3: 32 Attestation ABG: I personally reviewed and interpreted this ABG as follows: Independent Interpretation I performed an independent interpretation of an: EKG, Plain X-Ray (XR/XR chest 1V IMPRESSION: Bronchial wall thickening may be infectious and/or inflammatory in etiology. ) and CT Scan Radiology Impression Discussion of test interpretation with radiology: I have reviewed the radiologist's reading. Radiologist Impression: XR/XR chest 1V IMPRESSION: Bronchial wall thickening may be infectious and/or inflammatory in etiology. Critical Care Time Critical Care Time Critical Care Time: Yes Total Critical Care Time: 45 Attestation: I attest to this time spent taking care of the patient, obtaining history, physical, reviewing labs, imaging, speaking to my attending, speaking to specialist. Discharge Plan Discharge Clinical Impression: Hypoxia, CKD (chronic kidney disease), Dizziness, Fall, Encephalopathy Patient Disposition: Admitted As Inpatient Prescriptions: No Action metoprolol succinate 25 mg tablet extended release 24 hr 25 mg PO DAILY Qty: 30 5RF trazodone 50 mg tablet 50 mg PO BEDTIME lisinopril 20 mg tablet 20 mg PO DAILY clonazepam 1 mg tablet 1 mg PO TID cyanocobalamin (vitamin B-12) 1,000 mcg Tablet 1,000 mcg PO DAILY lamotrigine 25 mg tablet 75 mg PO QAM ascorbic acid (vitamin C) 500 mg Tablet 500 mg PO DAILY furosemide 80 mg tablet 80 mg PO SUTUTHSA oxcarbazepine 600 mg tablet 600 mg PO BID ergocalciferol (vitamin D2) 1,250 mcg (50,000 unit) capsule 1,250 mcg PO QMONTH sodium polystyrene sulfonate Powder 15 g PO SUTUTHSA prochlorperazine maleate 5 mg tablet 5 mg PO BID alclometasone 0.05 % cream 1 appl topical PRN
[2023-07-31] MEDS: Furosemide 40 MG/4 ML VIAL IVPUSH (13:45)
--- NOTE | 2023-07-31 13:49 | PC.NURSE ---
patient had increased confusion, pt continued to rip off wires, pts room was moved for patient safety, RT was called bipap was put on patient at 12/5, pt is satting 100% on bipap.
[2023-07-31] MEDS: fentaNYL citrate/PF 100 MCG/2 ML VIAL 25 MCG IVPUSH (14:00)
--- NOTE | 2023-07-31 14:02 | PC.NURSE ---
pt pulled off bipap, pt medicated with fentanyl per request of provider to help work of breathing. pt put back on 4L O2 nc.
[2023-07-31] MEDS: Albuterol/Iprat 2.5/0.5MG 3 ML AMPUL.NEB INHALE (14:11)
[2023-07-31] MEDS: Nitroglycerin 2 % Oint 1 GM Packet 0.5 INCH TRANSDERMA (14:39)
--- NOTE | 2023-07-31 14:41 | PC.NURSE ---
pt put back on bipap by RT at 1430
[2023-07-31 14:42] LABS: Troponin-I High Sensitivity 90.6 ng/L (<3.5-35.0)
--- NOTE | 2023-07-31 14:44 | PC.NURSE ---
nitro paste placed per order
[2023-07-31 14:46] LABS: Ethanol < 10 mg/dL
[2023-07-31 14:50] LABS: Ammonia 14 umol/L (13-55)
[2023-07-31 14:55] LABS: ABG Base Excess 9.4 mmol/L; ABG HCO3 32 mmol/L (22-26); ABG pCO2 37 mmHg (32-45); ABG pH 7.54 (7.35-7.45); ABG pO2 77 mmHg (83-108)
[2023-07-31 15:27] LABS: Appearance Urine Clear; Color Urine Yellow; Glucose Urine UA Negative (Negative); Leukocyte Esterase Urine Negative (Negative); Nitrite Urine Negative (Negative); PH >= 9.0 (5.0-9.0); UMIC TRIGGER UACC YES; Urine Blood Trace (Negative); Urine Ketones Negative (Negative); Urine Protein 100 (2+) mg/dL (Neg-Trace)
[2023-07-31] MEDS: Nitroglycerin 2 % Oint 1 GM Packet 1 INCH TRANSDERMA (15:33)
[2023-07-31 15:36] LABS: Amphetamine Screen Urine Not Detected (Not Detect); Barbiturates, Urine Not Detected (Not Detect); Benzodiazepines Screen Urine Not Detected (Not Detect); Cannabinoid Screen Urine Not Detected (Not Detect); Cocaine Screen Urine Not Detected (Not Detect); Fentanyl, urine Not Detected (Not Detect); Opiate Screen Urine Not Detected (Not Detect); Phencyclidine Screen Urine Not Detected (Not Detect)
[2023-07-31 16:27] LABS: Bacteria Urine None Seen (None Seen); Hyaline Casts Urine 0-2 /LPF (0-2); Squamous Epithelial Cell Urine 0-2 /HPF (0-2); WBC Urine 0-5 /HPF (0-5)
[2023-07-31] MEDS: cefTRIAXone sodium 1 GM in 0.9 % Sodium Chloride 50 ML IV (16:40)
--- NOTE | 2023-07-31 16:47 | PC.NURSE ---
delay in abx d/t tech at bedside obtaining lactic/blood cultures. pt medicated per SEP.
[2023-07-31 16:53] LABS: Lactic Acid 1.4 mmol/L (0.5-2.0)
[2023-07-31] MEDS: Azithromycin 500 MG in 0.9 % Sodium Chloride 250 ML 125 MG IV (17:44)
--- NOTE | 2023-07-31 18:55 | PC.NURSE ---
pt continues to be disoriented pulling at lines, taking oxymask off - will desat to 88% on RA. pt reeducated about keeping oxygen on.
[2023-07-31 19:24] LABS: ABG Refer to POC result
--- NOTE | 2023-07-31 20:01 | PM.IMHP ---
History of Present Illness Date of Service: 07/31/23 Attending physician on admission: Dean Willis Chief Complaint: Dizziness, falls at home Pt is a 73-year-old male with a PMH significant for?ESRD on HD Tue/Tue/Tue, HTN, paroxysmal a flutter, hx of pericardial effusion, and mood disorder who presents to the ED after dizziness, lightheadedness, and fall at home. Patient is somnolent, alert and oriented to self and time, but not to place or situation. Patient is unable/unwilling to provide accurate HPI or explain why he is here. Reached out to patient's primary contact, but received no answer. HPI thus provided by chart and provider review. Apparently patient reports feeling lightheaded and dizziness earlier today when he fell to the ground, denied head strike or loss of consciousness or any traumatic injury. Apparently he has been experiencing frequent falls at home with shortness of breath and nonproductive cough. Patient on hemodialysis M/W/F, last dialyzed 2 days ago on 07/29/2023. In the ED patient was initially placed on BiPAP and then weaned to OxyMask. Patient has been somewhat agitated in the ED, attempting to remove BiPAP and OxyMask as well as IVs. Respiratory attempted to wean patient from OxyMask by placing on 6 L NC, but patient breathing through mouth while asleep, and was desatting into the upper 80s; patient was placed back on OxyMask. Unclear if patient's agitation and inability/unwillingness to participate in interview and examination reflect any acute encephalopathy or are near patient's baseline. CBC shows normocytic anemia of 11.5/33.9, near patient's baseline. Creatinine mildly elevated at 5.76. Lactic acid WNL at 1.4. Ammonia WNL at 14. Troponin 66.7 with repeat without delta at 90.6, and BNP elevated at 4296. No clear source of bacterial infection: No leukocytosis, UA negative for UTI, CXR showed bronchial wall thickening that may be infectious and or inflammatory, but CT of chest was negative for focal consolidation. CT of chest did show interstitial pulmonary edema with small pleural effusions and moderate bilateral lobe atelectasis. CT of head negative for acute intracranial pathology, though did show chronic white matter small-vessel ischemic changes. CT of cervical spine negative for acute fractures or subluxation. EKG showed normal sinus rhythm without evidence of significant ST elevations or depressions. Pt was treated with furosemide, fentanyl, DuoNebs, nitroglycerin paste, ceftriaxone, and azithromycin. ED clinician reached out Nephrology who did not feel like there was a need for emergent hemodialysis. Pt will be admitted to the hospital treatment and further evaluation acute hypoxic respiratory failure in the setting of volume overload in a patient with ESRD on hemodialysis. Review of Systems Review of Systems: Unable to obtain due to patient's mentation [facility] Medical History Atrial flutter Nicotine dependence, cigarettes, uncomplicated AV fistula Essential hypertension Mood disorder Effusion, pericardium Pleural effusion, left Chronic kidney 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 Surgical History History of colonoscopy History of hernia repair History of parathyroidectomy Social History Household Members: None Housing: Apartment Do you presently have visiting nurse or other home services: Yes (Housekeeping services) Alcohol intake: former Comment: PT REFUSING Patient Tobacco Use Status: Tobacco use Unknown Tobacco use type: Cigarette Cigarette Packs Per Day: 0.5 Cigarettes Per Day: 10.0 Years Smoked: 60 +/- Smoked in Last 30 Days: Yes e-Cigarette/Vaping Use: Currently Using Second Hand Smoke Exposure: Yes Use of substances other than those prescribed or required for medical reasons: No Advance Directives: No Advance Directives Information Provided: No service: No Meds Allergies Allergy/AdvReac Type Severity Reaction Status Date / Time bupropion [From WELLBUTRIN] AdvReac Unknown CONSTIPATIO Verified 05/31/23 14:08 N NSAIDS (Non-Steroidal AdvReac Unknown RENAL Verified 05/31/23 14:08 Anti-Inflamma [NSAIDS (NON-STEROIDAL ANTI-INFLAMMA] [id number]-[id number]-BwL Reductase AdvReac Unknown UNK Verified 05/31/23 14:08 Inhibitor [[id number] REDUCTASE INHIBITOR] Active Medications: Current Medications Acetaminophen (Acetaminophen 325 Mg Tablet) 650 mg PO Q6H PRN PRN Reason: Pain, Mild (Pain Scale 1-3) Benzonatate (Benzonatate 100 Mg Capsule) 100 mg PO TID PRN PRN Reason: Cough Docusate Sodium (Docusate Sodium 100 Mg Capsule) 100 mg PO DAILY PRN PRN Reason: Constipation Heparin Sodium (Porcine) (Heparin Sodium,Porcine 5,000 Unit/Ml Vial) 5,000 unit SUBCUT Q8H [facility] Melatonin (Melatonin 3 Mg Tablet) 6 mg PO BEDTIME PRN PRN Reason: Insomnia Sodium Chloride (0.9 % Sodium Chloride Flush 3 Ml Syringe) 3 ml IVFLUSH QSHIFT [facility] Home Medications Medication Instructions Recorded Confirmed Last Taken Type ascorbic acid (vitamin C) 500 mg 500 mg PO DAILY 02/28/23 05/31/23 Unknown History tablet clonazepam 1 mg tablet 1 mg PO TID 02/28/23 05/31/23 Unknown History cyanocobalamin (vitamin B-12) 1,000 mcg PO DAILY 02/28/23 05/31/23 Unknown History 1,000 mcg tablet ergocalciferol (vitamin D2) 1,250 1,250 mcg PO QMONTH 02/28/23 05/31/23 Unknown History mcg (50,000 unit) capsule [facility]urosemide 80 mg tablet [facility] 02/28/23 05/31/23 Unknown History lamotrigine 25 mg tablet 75 mg PO QAM 02/28/23 05/31/23 Unknown History lisinopril 20 mg tablet 20 mg PO DAILY 02/28/23 05/31/23 Unknown History oxcarbazepine 600 mg tablet 600 mg PO BID 02/28/23 05/31/23 Unknown History prochlorperazine maleate 5 mg 5 mg PO BID 02/28/23 05/31/23 Unknown History tablet sodium polystyrene sulfonate [facility] g [facility] 02/28/23 05/31/23 Unknown History trazodone 50 mg tablet 50 mg PO BEDTIME 02/28/23 05/31/23 Unknown History alclometasone 0.05 % topical cream 1 appl topical PRN 03/15/23 05/31/23 Unknown History Physical Exam Vital Signs and Narrative: Vital Signs: Last Vital Signs Temp 99.0 F 07/31/23 18:44 Pulse 89 07/31/23 18:44 Resp 22 H 07/31/23 18:44 BP 167/79 H 07/31/23 16:45 Pulse Ox 94 07/31/23 18:44 O2 Del Method Oxymask 07/31/23 18:44 O2 Flow Rate 5 07/31/23 18:44 BMI result Body Mass Index 22.9 General: Somnolent but arousable, difficult to keep awake. In no acute distress Mental status: Oriented to person and time, not to place or situation Resp: CTA bilaterally CVS: S1, S2, RRR GI: +BS, NT, no distention Skin: Warm, dry Neuro: Cranial nerves II-XII grossly intact bilaterally. Motor grossly intact bilaterally Extremities: No edema Results Labs 07/31/23 11:02 07/31/23 11:02 Labs: Laboratory Results - last 24 hr 07/31/23 07/31/23 07/31/23 11:02 14:33 14:49 MCV 92.9 MCH 31.5 MCHC 33.9 RDW 14.9 Plt Count 155 L D MPV 10.3 Immature Gran % (Auto) 0.4 Neut % (Auto) 84.5 H Lymph % (Auto) 6.6 L Sumner % (Auto) 6.9 Eos % (Auto) 0.7 Baso % (Auto) 0.9 Lymph # (Auto) 0.4 L [place]ner # (Auto) 0.4 Eos # (Auto) 0.0 Baso # (Auto) 0.1 Abs Immat Gran (auto) 0.02 Absolute Neuts (auto) 4.6 Absolute Nucleated RBC 0.000 Nucleated RBC % (auto) 0.0 O2 Saturation 96.0 ABG pH at Pt Temp 7.54 H ABG pCO2 at Pt Temp 37 ABG pO2 at Pt Temp 77 L ABG HCO3 32 H ABG Base Excess (Actual) 9.4 Anion Gap 17 Estim Creat Clear Calc 11.5 Estimated GFR 10 Random Glucose 85 Lactic Acid Calcium 8.9 Ammonia 14 B-Natriuretic Peptide 4296 H Urine Color Urine Appearance Urine pH Ur Specific [place] Urine Protein Urine Glucose (UA) Urine Ketones Urine Blood Urine Nitrite Ur Leukocyte Esterase Urine RBC Urine WBC Ur Squamous Epith Cells Urine Bacteria Hyaline Casts Urine Opiates Screen Urine Fentanyl Screen Ur Barbiturates Screen Ur Phencyclidine Scrn Ur Amphetamines Screen U Benzodiazepines Scrn Urine Cocaine Screen U Marijuana (THC) Screen Ethyl Alcohol < 10 COVID-19 (KARL) Negative COVID-19 Clin Com See Note Influenza Type A (JULIA) Negative Influenza Type B (JULIA) Negative Influenza A & B Note See Note 07/31/23 07/31/23 15:14 16:33 MCV MCH MCHC RDW Plt Count MPV Immature Gran % (Auto) Neut % (Auto) Lymph % (Auto) Sumner % (Auto) Eos % (Auto) Baso % (Auto) Lymph # (Auto) Sumner # (Auto) Eos # (Auto) Baso # (Auto) Abs Immat Gran (auto) Absolute Neuts (auto) Absolute Nucleated RBC Nucleated RBC % (auto) O2 Saturation ABG pH at Pt Temp ABG pCO2 at Pt Temp ABG pO2 at Pt Temp ABG HCO3 ABG Base Excess (Actual) Anion Gap Estim Creat Clear Calc Estimated GFR Random Glucose Lactic Acid 1.4 Calcium Ammonia B-Natriuretic Peptide Urine Color Yellow Urine Appearance Clear Urine pH >= 9.0 Ur Specific [place] 1.010 Urine Protein 100 (2+) H Urine Glucose (UA) Negative Urine Ketones Negative Urine Blood Trace H Urine Nitrite Negative Ur Leukocyte Esterase Negative Urine RBC 3-5 H Urine WBC 0-5 Ur Squamous Epith Cells 0-2 Urine Bacteria None Seen Hyaline Casts 0-2 Urine Opiates Screen Not Detected Urine Fentanyl Screen Not Detected Ur Barbiturates Screen Not Detected Ur Phencyclidine Scrn Not Detected Ur Amphetamines Screen Not Detected U Benzodiazepines Scrn Not Detected Urine Cocaine Screen Not Detected U Marijuana (THC) Screen Not Detected Ethyl Alcohol COVID-19 (KARL) COVID-19 Clin Com Influenza Type A (JULIA) Influenza Type B (JULIA) Influenza A & B Note Imaging Radiologist's Impressions: Impressions Chest X-Ray 07/31/23 11:42 IMPRESSION: Bronchial wall thickening may be infectious and/or inflammatory in etiology. Cervical Spine CT 07/31/23 17:34 IMPRESSION: 1. Limited evaluation of the cranial apex secondary to patient motion artifact. 2. No acute intracranial pathology. 3. Chronic white matter small vessel ischemic changes. EXAMINATION: Noncontrast CT scan of the cervical spine. INDICATION: Fall neck pain COMPARISON: None. TECHNIQUE: Helical, multidetector axial images were obtained from the occiput to the upper thorax. Coronal and sagittal reformats of the cervical spine were provided for interpretation. DLP: 1718 mGy-cm FINDINGS: No acute fractures or dislocations of the cervical spine are seen. Straightening of normal cervical curvature which may be secondary to patient positioning versus muscle spasm. Grade 1 anterolisthesis of C4 on C5. Multilevel degenerative changes. Anatomic alignment and positioning of the vertebral bodies and posterior elements is noted. The atlantoaxial joint and craniovertebral articulations are normal without evidence of subluxation. There is no prevertebral soft tissue swelling. Surgical material in the region of the lower neck/upper mediastinum. Visualized portions of the lung veloz are unremarkable. IMPRESSION: 1. No acute visible fracture or dislocation. 2. Straightening of normal cervical curvature which may be secondary to patient positioning versus muscle spasm. 3. Grade 1 anterolisthesis of C4 on C5. 4. Multilevel degenerative changes. Chest CT 07/31/23 17:34 IMPRESSION: 1. Interstitial pulmonary edema with small, right greater than left simple pleural effusions and moderate bilateral lower lobe dependent atelectasis. 2. Mild upper lung predominant centrilobular emphysema. No focal consolidation. 3. Cardiomegaly. Markedly dilated main pulmonary artery, compatible with chronic pulmonary arterial hypertension. Head CT 07/31/23 17:34 IMPRESSION: 1. Limited evaluation of the cranial apex secondary to patient motion artifact. 2. No acute intracranial pathology. 3. Chronic white matter small vessel ischemic changes. EXAMINATION: Noncontrast CT scan of the cervical spine. INDICATION: Fall neck pain COMPARISON: None. TECHNIQUE: Helical, multidetector axial images were obtained from the occiput to the upper thorax. Coronal and sagittal reformats of the cervical spine were provided for interpretation. DLP: 1718 mGy-cm FINDINGS: No acute fractures or dislocations of the cervical spine are seen. Straightening of normal cervical curvature which may be secondary to patient positioning versus muscle spasm. Grade 1 anterolisthesis of C4 on C5. Multilevel degenerative changes. Anatomic alignment and positioning of the vertebral bodies and posterior elements is noted. The atlantoaxial joint and craniovertebral articulations are normal without evidence of subluxation. There is no prevertebral soft tissue swelling. Surgical material in the region of the lower neck/upper mediastinum. Visualized portions of the lung veloz are unremarkable. IMPRESSION: 1. No acute visible fracture or dislocation. 2. Straightening of normal cervical curvature which may be secondary to patient positioning versus muscle spasm. 3. Grade 1 anterolisthesis of C4 on C5. 4. Multilevel degenerative changes. Assessment and Plan (1) ESRD (end stage renal disease) on dialysis: Status: Acute (2) Hypoxia: Status: Acute Plan Pt is a 73-year-old male with a PMH significant for?ESRD on HD Tue/Tue/Tue, HTN, paroxysmal a flutter, hx of pericardial effusion, and mood disorder who presents to the ED after dizziness, lightheadedness, and fall at home. Pt will be admitted to the hospital treatment and further evaluation acute hypoxic respiratory failure in the setting of volume overload in a patient with ESRD on hemodialysis. Acute hypoxic respiratory failure in the setting of volume overload secondary to ESRD Pt satting as low 70% on RA at home according to EMS; placed on BiPAP in ED and weaned to OxyMask CT of chest showing interstitial pulmonary edema with bilateral small pleural effusions, no evidence of consolidation, COVID and flu negative Will check full respiratory panel Will treat volume overload with dialysis tomorrow Titrate supplemental O2 >92, wean as tolerated Monitor respiratory status Question of acute encephalopathy Pt AOx2, not to place or situation; baseline mentation unclear UA negative, ammonia WNL, tox screen negative Possibly secondary to hypoxia from volume overload Treat as above with dialysis Monitor mental stauts ESRD on HD M// Last dialyzed on 07/29/2023 Nephrology consult Patient will receive dialysis tomorrow Monitor on telemetry Frequent falls at home PT evaluation HTN Continue home meds Anemia of chronic disease Stable, at baseline Mood disorder Continue home meds Full Code Attending:?Dr. Og DVT Prophylaxis: Heparin Pt will require a hospitalization of at least two nights for treatment of?acute hypoxic respiratory failure in the setting of volume overload in a pt with ESRD on hemodialysis. Pt will require supplemental oxygen, dialysis, and close monitoring of labs, metal status, and respiratory status. Quality Stroke Does the patient have a stroke diagnosis?: No VTE Prior VTE?: No VTE Risk Level:: Medical - moderate - high VTE Device Contraindication: Treatment Not Indicated VTE Drug Contraindication: N/A - Med Ordered
--- NOTE | 2023-07-31 21:05 | PC.NURSE ---
notified that temp is now 99.3
--- NOTE | 2023-07-31 21:22 | PM.EVENT ---
Event Note Date of Service: 07/31/23 Event Note: Chart reviewed D/w ER HD arranged for Am D/ w HD nurse Orders given Full consult to follow Thx Dr. Medrano Time Spent With Patient Time: Total time managing care of this patient today ____ minutes.
--- NOTE | 2023-07-31 21:47 | PC.NURSE ---
pt got out of bed unassisted, incontinent of stool. several staff members at bedside to help assist. pt is agitated w/ any care provided. has stated multiple times for people to leave him alone.
[2023-07-31] MEDS: Heparin Sodium,Porcine 5,000 UNIT/ML VIAL 5000 UNIT SUBCUT (22:04)
[2023-07-31] MEDS: Acetaminophen Supp 650 MG SUPP.RECT PR (22:04)
[2023-08-01] VITALS (10 sets, daily range): BP systolic 107–178; BP diastolic 58–92; PULSE 74–96; RESP 16–24; TEMP 36.7–37.9; O2SAT 88–98; BMI 19.9
--- NOTE | 2023-08-01 01:05 | PC.NURSE ---
this rn assumed care of pt @ 2300. pt noted to abruptly self removed monitors and o2 and get out of bed. when pt redirected pt makes rude remarks to staff. pt unsteady on feet. pt repositioned back to bed
[2023-08-01] MEDS: 0.9 % Sodium Chloride Flush 3 ML SYRINGE IVFLUSH ×3 (01:43→16:48)
--- NOTE | 2023-08-01 03:06 | PC.NURSE ---
pt does not come to [facility] with medication list. pt unable to verify medications. this rn unable to accurately verify home medications
[2023-08-01] MEDS: Heparin Sodium,Porcine 5,000 UNIT/ML VIAL 5000 UNIT SUBCUT (05:05)
--- NOTE | 2023-08-01 05:20 | PC.NURSE ---
this rn assisted pt to bedside commode for BM, pt able to stand and pivot. dr robbi smart made aware of bp of 175/92 no new orders
[2023-08-01] MEDS: hydrALAZINE HCl 20 MG/ML VIAL 5 MG IVPUSH (05:45)
[2023-08-01 06:35] LABS: Anion Gap 20 (12-20); Blood Urea Nitrogen 36 mg/dL (9-16); Calcium 8.6 mg/dL (8.4-10.2); Carbon Dioxide 26 mmol/L (22-29); Chloride 95 mmol/L (96-108); Creatinine Clr Calc Pharmacy 9.1; Estimated Glomerular Filt Rate 7; Glucose Random 88 mg/dL (60-115); Potassium 4.2 mmol/L (3.3-5.1); Sodium 137 mmol/L (135-145)
[2023-08-01 06:42] LABS: Hematocrit 35.6 % (42.0-52.0); Hemoglobin 11.8 g/dl (14.0-18.0); Mean Corpuscular HGB Conc 33.1 g/dl (31.0-36.0); Mean Corpuscular Hemoglobin 31.1 pg (27.0-33.0); Mean Corpuscular Volume 93.7 fL (80.0-98.0); Mean Platelet Volume 10.9 fL (9.4-12.4); Platelet Count 144 X10*3/uL (160-400); Red Cell Distribution Width 15.1 % (11.0-16.0); White Blood Count 6.6 X10*3/uL (4.8-10.8)
[2023-08-01] MEDS: Furosemide 100 MG/10 ML VIAL 80 MG IVPUSH (06:44)
[2023-08-01] MEDS: HYDROmorphone HCl 0.5 MG/0.5 ML SYRINGE IVPUSH (06:44)
[2023-08-01] MEDS: lisinopriL 20 MG TABLET PO (08:14)
[2023-08-01] MEDS: methylPREDNISolone Sod Succ 125 MG/2 ML VIAL IVPUSH (08:14)
--- NOTE | 2023-08-01 08:20 | PC.NURSE ---
PT IS A/O X 3. PT IS ADMITTED TO HOSP. PT IS RESTING RESP EVEN AND UNLABORED. LUNGS - COARSE CRACKLES AND EXP WHEEZING. [facility] (DIALYSIS, RN - EXT [id number]) CALLED FOR PT TO DIALYSIS. PT AWARE OF PLAN OF CARE.
--- NOTE | 2023-08-01 08:35 | PC.NURSE ---
PT SEEN BY ABDIRAHMAN (PAD TUFTER) LIZBETH. PT SENT TO DIALYSIS VIA STRETCHER WITH ALL HIS BELONGINGS. PT AWARE OF PLAN OF CARE.
--- NOTE | 2023-08-01 08:40 | PC.NURSE ---
PT PLACED ON MANAGER PATIENT AND SENT TO DIALYSIS.
--- NOTE | 2023-08-01 10:12 | HO.PM.IMPN ---
Subjective Subjective Date of Service: 08/01/23 Review of Systems Follow up resp failure, volume overload, ESRD still with some sob just before dialysis Physical Exam Vital Signs: Vital Signs: Last Vital Signs Temp 98.1 F 08/01/23 08:12 Pulse 96 08/01/23 08:12 Resp 24 H 08/01/23 08:12 BP 178/89 H 08/01/23 08:12 Pulse Ox 96 08/01/23 08:12 O2 Del Method Oxymask 08/01/23 08:12 O2 Flow Rate 4 08/01/23 08:12 BMI result Body Mass Index 22.9 Appearing in no acute distress lung sounds rales heart regular rate rhythm, clear S1, S2 positive bowel sounds, abdomen is soft, nontender neuro patient is alert x3, no focal deficits Objective Data Active Medications Acetaminophen (Acetaminophen 325 Mg Tablet) 650 mg PO Q6H PRN PRN Reason: Pain, Mild (Pain Scale 1-3) Acetaminophen (Acetaminophen Supp 650 Mg Supp.Rect) 650 mg [place] Q4H PRN PRN Reason: Fever Last Admin: 07/31/23 22:04 Dose: 650 mg Documented By: PUSHPA Albuterol/Ipratropium (Albuterol/Iprat 2.5/0.5mg 3 Ml Ampul.Neb) 3 ml INHALE RQ4H WHILE AWAKE [facility] Last Admin: 08/01/23 08:30 Dose: Not Given Documented By: JULIETTE Non-Admin Reason: Off unit: Dialysis Benzonatate (Benzonatate 100 Mg Capsule) 100 mg PO TID PRN PRN Reason: Cough Docusate Sodium (Docusate Sodium 100 Mg Capsule) 100 mg PO DAILY PRN PRN Reason: Constipation Heparin Sodium (Porcine) (Heparin Sodium,Porcine 5,000 Unit/Ml Vial) 5,000 unit SUBCUT Q8H [facility] Last Admin: 08/01/23 05:05 Dose: 5,000 unit Documented By: PREETI Hydralazine HCl (Hydralazine Hcl 20 Mg/Ml Vial) 5 mg IVPUSH Q4H PRN; Protocol PRN Reason: SBP > 160 Last Admin: 08/01/23 05:45 Dose: 5 mg Documented By: PREETI Lisinopril (Lisinopril 20 Mg Tablet) 20 mg PO DAILY [facility]; Protocol Last Admin: 08/01/23 08:14 Dose: 20 mg Documented By: KENZIE Melatonin (Melatonin 3 Mg Tablet) 6 mg PO BEDTIME PRN PRN Reason: Insomnia Metoprolol Succinate (Metoprolol Succinate Er 25 Mg Tab.Er.24h) 25 mg PO DAILY [facility]; Protocol Last Admin: 08/01/23 05:45 Dose: Not Given Documented By: PREETI Non-Admin Reason: NPO Sodium Chloride (0.9 % Sodium Chloride Flush 3 Ml Syringe) 3 ml IVFLUSH QSHIFT [place] Last Admin: 08/01/23 08:15 Dose: 3 ml Documented By: KENZIE Labs 08/01/23 05:24 08/01/23 05:24 Labs: Laboratory Results - last 24 hr 07/31/23 07/31/23 07/31/23 11:02 14:33 14:49 MCV 92.9 MCH 31.5 MCHC 33.9 RDW 14.9 Plt Count 155 L D MPV 10.3 Immature Gran % (Auto) 0.4 Neut % (Auto) 84.5 H Lymph % (Auto) 6.6 L Mcdonald % (Auto) 6.9 Eos % (Auto) 0.7 Baso % (Auto) 0.9 Lymph # (Auto) 0.4 L Mcdonald # (Auto) 0.4 Eos # (Auto) 0.0 Baso # (Auto) 0.1 Abs Immat Gran (auto) 0.02 Absolute Neuts (auto) 4.6 Absolute Nucleated RBC 0.000 Nucleated RBC % (auto) 0.0 O2 Saturation 96.0 ABG pH at Pt Temp 7.54 H ABG pCO2 at Pt Temp 37 ABG pO2 at Pt Temp 77 L ABG HCO3 32 H ABG Base Excess (Actual) 9.4 Anion Gap 17 Estim Creat Clear Calc 11.5 Estimated GFR 10 Random Glucose 85 Lactic Acid Calcium 8.9 Ammonia 14 B-Natriuretic Peptide 4296 H Urine Color Urine Appearance Urine pH Ur Specific [place] Urine Protein Urine Glucose (UA) Urine Ketones Urine Blood Urine Nitrite Ur Leukocyte Esterase Urine RBC Urine WBC Ur Squamous Epith Cells Urine Bacteria Hyaline Casts Urine Opiates Screen Urine Fentanyl Screen Ur Barbiturates Screen Ur Phencyclidine Scrn Ur Amphetamines Screen U Benzodiazepines Scrn Urine Cocaine Screen U Marijuana (THC) Screen Ethyl Alcohol < 10 Respiratory Panel Cuellar Adenovirus (Rapid PCR) B.pert (TEM-PCR) B.parapertussis DNA PCR C. pneumoniae DNA (PCR) Coronavirus OC43 (PCR) Coronavirus HKU1 (PCR) Coronavirus 229E (PCR) COVID-19 (KARL) Negative COVID-19 Clin Com See Note Coronavirus NL63 (PCR) Human Metapneumovir PCR Influenza Type A (JULIA) Negative Influenza A (RT-PCR) Influenza Type B (JULIA) Negative Influenza B (RT-PCR) Influenza A & B Note See Note M. pneumoniae (PCR) Parainfluenza 1 (PCR) Parainfluenza 2 (PCR) Parainfluenza 3 (PCR) Parainfluenza 4 (PCR) RSV (PCR) Entero/Rhino (PCR) SARS-CoV-2 RNA (RT-PCR) 07/31/23 07/31/23 08/01/23 15:14 16:33 05:08 MCV MCH MCHC RDW Plt Count MPV Immature Gran % (Auto) Neut % (Auto) Lymph % (Auto) Mcdonald % (Auto) Eos % (Auto) Baso % (Auto) Lymph # (Auto) Mcdonald # (Auto) Eos # (Auto) Baso # (Auto) Abs Immat Gran (auto) Absolute Neuts (auto) Absolute Nucleated RBC Nucleated RBC % (auto) O2 Saturation ABG pH at Pt Temp ABG pCO2 at Pt Temp ABG pO2 at Pt Temp ABG HCO3 ABG Base Excess (Actual) Anion Gap Estim Creat Clear Calc Estimated GFR Random Glucose Lactic Acid 1.4 Calcium Ammonia B-Natriuretic Peptide Urine Color Yellow Urine Appearance Clear Urine pH >= 9.0 Ur Specific [place] 1.010 Urine Protein 100 (2+) H Urine Glucose (UA) Negative Urine Ketones Negative Urine Blood Trace H Urine Nitrite Negative Ur Leukocyte Esterase Negative Urine RBC 3-5 H Urine WBC 0-5 Ur Squamous Epith Cells 0-2 Urine Bacteria None Seen Hyaline Casts 0-2 Urine Opiates Screen Not Detected Urine Fentanyl Screen Not Detected Ur Barbiturates Screen Not Detected Ur Phencyclidine Scrn Not Detected Ur Amphetamines Screen Not Detected U Benzodiazepines Scrn Not Detected Urine Cocaine Screen Not Detected U Marijuana (THC) Screen Not Detected Ethyl Alcohol Respiratory Panel Cuellar Cancelled Adenovirus (Rapid PCR) Cancelled B.pert (TEM-PCR) Cancelled B.parapertussis DNA PCR Cancelled C. pneumoniae DNA (PCR) Cancelled Coronavirus OC43 (PCR) Cancelled Coronavirus HKU1 (PCR) Cancelled Coronavirus 229E (PCR) Cancelled COVID-19 (KARL) COVID-19 Clin Com Coronavirus NL63 (PCR) Cancelled Human Metapneumovir PCR Cancelled Influenza Type A (JULIA) Influenza A (RT-PCR) Cancelled Influenza Type B (JULIA) Influenza B (RT-PCR) Cancelled Influenza A & B Note M. pneumoniae (PCR) Cancelled Parainfluenza 1 (PCR) Cancelled Parainfluenza 2 (PCR) Cancelled Parainfluenza 3 (PCR) Cancelled Parainfluenza 4 (PCR) Cancelled RSV (PCR) Cancelled Entero/Rhino (PCR) Cancelled SARS-CoV-2 RNA (RT-PCR) Cancelled 08/01/23 05:24 MCV 93.7 MCH 31.1 MCHC 33.1 RDW 15.1 Plt Count 144 L MPV 10.9 Immature Gran % (Auto) Neut % (Auto) Lymph % (Auto) Mcdonald % (Auto) Eos % (Auto) Baso % (Auto) Lymph # (Auto) Mcdonald # (Auto) Eos # (Auto) Baso # (Auto) Abs Immat Gran (auto) Absolute Neuts (auto) Absolute Nucleated RBC 0.000 Nucleated RBC % (auto) 0.0 O2 Saturation ABG pH at Pt Temp ABG pCO2 at Pt Temp ABG pO2 at Pt Temp ABG HCO3 ABG Base Excess (Actual) Anion Gap 20 Estim Creat Clear Calc 9.1 Estimated GFR 7 Random Glucose 88 Lactic Acid Calcium 8.6 Ammonia B-Natriuretic Peptide Urine Color Urine Appearance Urine pH Ur Specific [place] Urine Protein Urine Glucose (UA) Urine Ketones Urine Blood Urine Nitrite Ur Leukocyte Esterase Urine RBC Urine WBC Ur Squamous Epith Cells Urine Bacteria Hyaline Casts Urine Opiates Screen Urine Fentanyl Screen Ur Barbiturates Screen Ur Phencyclidine Scrn Ur Amphetamines Screen U Benzodiazepines Scrn Urine Cocaine Screen U Marijuana (THC) Screen Ethyl Alcohol Respiratory Panel [place] Adenovirus (Rapid PCR) B.pert (TEM-PCR) B.parapertussis DNA PCR C. pneumoniae DNA (PCR) Coronavirus OC43 (PCR) Coronavirus HKU1 (PCR) Coronavirus 229E (PCR) COVID-19 (KARL) COVID-19 Clin Com Coronavirus NL63 (PCR) Human Metapneumovir PCR Influenza Type A (JULIA) Influenza A (RT-PCR) Influenza Type B (JULIA) Influenza B (RT-PCR) Influenza A & B Note M. pneumoniae (PCR) Parainfluenza 1 (PCR) Parainfluenza 2 (PCR) Parainfluenza 3 (PCR) Parainfluenza 4 (PCR) RSV (PCR) Entero/Rhino (PCR) SARS-CoV-2 RNA (RT-PCR) Assessment and Plan (1) Anemia: Status: Acute (2) ESRD (end stage renal disease): Status: Acute Plan Pt is a 73-year-old male with a PMH significant for?ESRD on HD Tue/Tue/Tue, HTN, paroxysmal a flutter, hx of pericardial effusion, and mood disorder who presents to the ED after dizziness, lightheadedness, and fall at home. Pt will be admitted to the hospital treatment and further evaluation acute hypoxic respiratory failure in the setting of volume overload in a patient with ESRD on hemodialysis. Acute hypoxic respiratory failure in the setting of volume overload secondary to ESRD Pt satting as low 70% on RA at home according to EMS; placed on BiPAP in ED and weaned to OxyMask CT of chest showing interstitial pulmonary edema with bilateral small pleural effusions, no evidence of consolidation, COVID and flu negative Will check full respiratory panel Will treat volume overload with dialysis tomorrow Titrate supplemental O2 >92, wean as tolerated Monitor respiratory status Question of acute encephalopathy Pt AOx2, not to place or situation baseline mentation unclear UA negative, ammonia WNL, tox screen negative Possibly secondary to hypoxia from volume overload Treat as above with dialysis Monitor mental stauts ESRD on HD M/W/F Last dialyzed on 07/29/2023 Nephrology consult Patient will receive dialysis tomorrow Monitor on telemetry Frequent falls at home PT evaluation HTN Continue home meds Anemia of chronic disease Stable, at baseline Mood disorder Continue home meds Full Code Attending:?Dr. Salcedo DVT Prophylaxis: Heparin Pt will require a hospitalization of at least two nights for treatment of?acute hypoxic respiratory failure in the setting of volume overload in a pt with ESRD on hemodialysis. Pt will require supplemental oxygen, dialysis, and close monitoring of labs, metal status, and respiratory status. Quality Stroke Does the patient have a stroke diagnosis?: No VTE Prior VTE?: No VTE Risk Level:: Medical - moderate - high VTE Device Contraindication: Treatment Not Indicated VTE Drug Contraindication: N/A - Med Ordered
--- NOTE | 2023-08-01 10:22 | MHC.SLORD ---
Speech Language Pathology Order Status: HEATER WORKER arrived to see pt for bedside swallow eval, however pt was away at dialysis. Will re-attempt this afternoon.
[2023-08-01 11:38] LABS: Adenovirus PCR Not Detected (Not Detect.); Bordetella parapertussis PCR Not Detected (Not Detect.); Bordetella pertussis PCR Not Detected (Not Detect.); Chlamydia pneumoniae PCR Not Detected (Not Detect.); Coronavirus 229E PCR Not Detected (Not Detect.); Coronavirus HKU1 PCR Not Detected (Not Detect.); Coronavirus NL63 PCR Not Detected (Not Detect.); Coronavirus OC43 PCR Not Detected (Not Detect.); Human metapneumovirus PCR Not Detected (Not Detect.); Influenza B PCR Not Detected (Not Detect.); Mycoplasma pneumoniae PCR Not Detected (Not Detect.); Parainfluenza 1 PCR Not Detected (Not Detect.); Parainfluenza 2 PCR Not Detected (Not Detect.); Parainfluenza 3 PCR Not Detected (Not Detect.); Parainfluenza 4 PCR Not Detected (Not Detect.); RSV PCR Not Detected (Not Detect.); Rhino/Enterovirus PCR Not Detected (Not Detect.)
[2023-08-01 11:43] LABS: Influenza A PCR Detected (Not Detect.); SARS-CoV-2 PCR Not Detected (Not Detect.)
--- NOTE | 2023-08-01 12:34 | PHA.MEDREC ---
Pharmacy Consult ? Medication Reconciliation Pharmacy has completed the medication reconciliation. Spoke with patient and caregiver to confirm medications. They had a list from home that we went over together.
--- NOTE | 2023-08-01 12:36 | PM.CNNEP ---
History of Present Illness Reason for Consult Consult date: 08/01/23 Chief Complaint Chief complaint: Frequent falls, hypoxia, dialysis History of Present Illness Narrative: 73-year-old male with a history of ?ESRD presented to the ED after dizziness, lightheadedness, and fall at home. He normally has HD Tuesday, /Tuesday and Tuesday. He was found to have acute hypoxic respiratory failure in the setting of volume overload. At the time of the consultation he is having dialysis. Review of Systems Review of Systems 10 points ROS negative except for [facility] Past Medical History Medical History Atrial flutter Nicotine dependence, cigarettes, uncomplicated AV fistula Essential hypertension Mood disorder Effusion, pericardium Pleural effusion, left Chronic kidney 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 Surgical History Surgical History History of colonoscopy History of hernia repair History of parathyroidectomy Social History Social History Household Members: None Housing: Apartment Do you presently have visiting nurse or other home services: Yes (Housekeeping services) Alcohol intake: former Comment: PT REFUSING Patient Tobacco Use Status: Tobacco use Unknown Tobacco use type: Cigarette Cigarette Packs Per Day: 0.5 Cigarettes Per Day: 10.0 Years Smoked: 60 +/- Smoked in Last 30 Days: Yes e-Cigarette/Vaping Use: Currently Using Second Hand Smoke Exposure: Yes Use of substances other than those prescribed or required for medical reasons: No Advance Directives: No Advance Directives Information Provided: No service: No Meds Allergies Allergy/AdvReac Type Severity Reaction Status Date / Time bupropion [From WELLBUTRIN] AdvReac Unknown CONSTIPATIO Verified 05/31/23 14:08 N NSAIDS (Non-Steroidal AdvReac Unknown RENAL Verified 05/31/23 14:08 Anti-Inflamma [NSAIDS (NON-STEROIDAL ANTI-INFLAMMA] Kitpama-BSB-[id number] Reductase AdvReac Unknown UNK Verified 05/31/23 14:08 Inhibitor [[id number] REDUCTASE INHIBITOR] Active Medications: Current Medications Acetaminophen (Acetaminophen 325 Mg Tablet) 650 mg PO Q6H PRN PRN Reason: Pain, Mild (Pain Scale 1-3) Acetaminophen (Acetaminophen Supp 650 Mg Supp.Rect) 650 mg [place] Q4H PRN PRN Reason: Fever Last Admin: 07/31/23 22:04 Dose: 650 mg Albuterol/Ipratropium (Albuterol/Iprat 2.5/0.5mg 3 Ml Ampul.Neb) 3 ml INHALE RQ4H WHILE AWAKE [facility] Last Admin: 08/01/23 08:30 Dose: Not Given Benzonatate (Benzonatate 100 Mg Capsule) 100 mg PO TID PRN PRN Reason: Cough Docusate Sodium (Docusate Sodium 100 Mg Capsule) 100 mg PO DAILY PRN PRN Reason: Constipation Heparin Sodium (Porcine) (Heparin Sodium,Porcine 5,000 Unit/Ml Vial) 5,000 unit SUBCUT Q8H [facility] Last Admin: 08/01/23 05:05 Dose: 5,000 unit Hydralazine HCl (Hydralazine Hcl 20 Mg/Ml Vial) 5 mg IVPUSH Q4H PRN; Protocol PRN Reason: SBP > 160 Last Admin: 08/01/23 05:45 Dose: 5 mg Lisinopril (Lisinopril 20 Mg Tablet) 20 mg PO DAILY [facility]; Protocol Last Admin: 08/01/23 08:14 Dose: 20 mg Melatonin (Melatonin 3 Mg Tablet) 6 mg PO BEDTIME PRN PRN Reason: Insomnia Metoprolol Succinate (Metoprolol Succinate Er 25 Mg Tab.Er.24h) 25 mg PO DAILY [facility]; Protocol Last Admin: 08/01/23 05:45 Dose: Not Given Sodium Chloride (0.9 % Sodium Chloride Flush 3 Ml Syringe) 3 ml IVFLUSH QSHIFT [facility] Last Admin: 08/01/23 08:15 Dose: 3 ml Home Medications Medication Instructions Recorded Confirmed Last Taken Type ascorbic acid (vitamin C) 500 mg 500 mg PO DAILY 02/28/23 08/01/23 Unknown History tablet clonazepam 1 mg tablet 1 mg PO TID 02/28/23 08/01/23 Unknown History cyanocobalamin (vitamin B-12) 1,000 mcg PO DAILY 02/28/23 08/01/23 Unknown History 1,000 mcg tablet furosemide 80 mg tablet 80 mg PO SUTUTHSA 02/28/23 08/01/23 Unknown History lamotrigine 25 mg tablet 75 mg PO QAM 02/28/23 08/01/23 Unknown History lisinopril 20 mg tablet 20 mg PO DAILY 02/28/23 08/01/23 Unknown History oxcarbazepine 600 mg tablet 600 mg PO BID 02/28/23 08/01/23 Unknown History prochlorperazine maleate 5 mg 5 mg PO BID 02/28/23 08/01/23 Unknown History tablet sodium polystyrene sulfonate 15 g PO SUTUTHSA 02/28/23 08/01/23 Unknown History trazodone 50 mg tablet 50 mg PO BEDTIME 02/28/23 08/01/23 Unknown History albuterol sulfate 90 mcg/actuation 2 puff inhalation Q6H PRN 08/01/23 08/01/23 Unknown History aerosol inhaler (Ventolin HFA) Shortness Of Breath Or Wheezing ergocalciferol (vitamin D2) 1,250 1,250 mcg PO QMONTH 08/01/23 08/01/23 Unknown History mcg (50,000 unit) capsule metoprolol succinate 25 mg 12.5 mg PO DAILY 08/01/23 08/01/23 Unknown History tablet,extended release 24 hr vitamin B complex 1 tab PO DAILY 08/01/23 08/01/23 Unknown History Physical Exam Vital Signs: Last Vital Signs Temp 98.1 F 08/01/23 08:12 Pulse 96 08/01/23 08:12 Resp 24 H 08/01/23 08:12 BP 178/89 H 08/01/23 08:12 Pulse Ox 96 08/01/23 08:12 O2 Del Method Oxymask 08/01/23 08:12 O2 Flow Rate 4 08/01/23 08:12 BMI result Body Mass Index 22.9 Const General: alert and awake HEENT Head: Yes normocephalic and Yes atraumatic Neck Neck: Yes supple Resp Auscultation: diminished lung sounds Cardio Heart sounds: S1 normal heart sound present and S2 normal heart sound present GI Palpation (GI): Soft to palpation and nontender Extrem General: Yes no pedal edema Results Lab Results 08/01/23 05:24 08/01/23 05:24 Lab results: Chemistry 07/31/23 08/01/23 11:02 05:24 Sodium 137 137 Potassium 4.3 4.2 Carbon Dioxide 31 H 26 BUN 24 H 36 H Creatinine 5.76 H* 7.21 H* Calcium 8.9 8.6 Hematology 07/31/23 08/01/23 11:02 05:24 WBC 5.5 6.6 Hgb 11.5 L 11.8 L Plt Count 155 L D 144 L Urinalysis 07/31/23 15:14 Urine Color Yellow Urine Appearance Clear Urine pH >= 9.0 Ur Specific [place] 1.010 Urine Protein 100 (2+) H Urine Glucose (UA) Negative Urine Ketones Negative Urine Blood Trace H Urine Nitrite Negative Ur Leukocyte Esterase Negative Urine RBC 3-5 H Urine WBC 0-5 Ur Squamous Epith Cells 0-2 Hyaline Casts 0-2 Assessment and Plan (1) ESRD (end stage renal disease): Status: Acute (2) Anemia: Status: Acute Plan usually has HD at [facility] -- [address] Sweet presented with fall and acute hypoxic respiratory failure nephrogenic anemia REC HD today UF as tolerated renal diet phosphate binders LC Procedures Date of Service Date of Service: 08/01/23
--- NOTE | 2023-08-01 13:55 | PC.NURSE ---
PT RETURNED FROM DIALYSIS WITH TRANSPORTER
[2023-08-01] MEDS: Albuterol/Iprat 2.5/0.5MG 3 ML AMPUL.NEB INHALE ×2 (14:45→20:05)
--- NOTE | 2023-08-01 15:02 | PC.NURSE ---
PT ADAMANTLY REFUSED HEPARIN SQ. AWARE.
--- NOTE | 2023-08-01 15:10 | PC.NURSE ---
PT HAD SWALLOW EVAL DONE. PT LILLY WELL
--- NOTE | 2023-08-01 15:11 | PC.NURSE ---
PHYSICAL THERAPY AT BEDSIDE.
--- NOTE | 2023-08-01 15:17 | MHC.SL.SWA ---
Speech Pathologist Impression: WFL Liquid Consistency and Strategies for Safe Swallow: Liquid Intake Recommendation: Thin Liquid Intake Strategies: Small Sips Solid Food Consistency: Dietary Recommendations: Regular Additional Modifications to Solid Foods: Pt seen for bedside dysphagia while in the ED. Oral mech exam was unremarkable. Pt tolerated trials of liquids and solids with no overt s/s of aspiration. Swallow deemed to be WFL. Pt denied having any trouble swallowing. Recommend UPGRADE from NPO to REGULAR texture diet and THIN liquids, pills WHOLE in LIQUID. Further ST intervention is no longer warranted. Please re-refer with any changes or if NEWSCAST DIRECTOR can be of further assistance. Oral Medication Intake: Whole with Liquid Please contact the pharmacy regarding appropriate crushable or liquid drug formulations that are available whenever modified delivery is recommended. Compensatory Strategies and Precautions to be Taken for Safe Swallow: Sitting Upright (90 deg) Small Bites and Sips Rate of Ingestion Change Supervision While Eating and Drinking for Safe Swallow: Intermittent Supervision Recommendation for Speech: NA:Typical Evaluation Screw Machine Tool Setter Clinican/Clinical Fellow: No Supervisory Statement: I have reviewed and agree with the student/clinical fellow's documentation: N/A Speech Language Pathologist: Amanda Otto M.A., [facility]-NEWSCAST DIRECTOR
--- NOTE | 2023-08-01 15:34 | PC.NURSE ---
report from michelle received at this time- michelle texted giuseppe for transport upstairs
[2023-08-02] VITALS (11 sets, daily range): BP systolic 127–164; BP diastolic 60–82; PULSE 65–88; RESP 16–22; TEMP 36.1–37.1; O2SAT 90–98
[2023-08-02] MEDS: 0.9 % Sodium Chloride Flush 3 ML SYRINGE IVFLUSH ×3 (00:34→15:17)
[2023-08-02 07:52] LABS: Anion Gap 21 (12-20); Blood Urea Nitrogen 45 mg/dL (9-16); Calcium 8.6 mg/dL (8.4-10.2); Carbon Dioxide 24 mmol/L (22-29); Chloride 94 mmol/L (96-108); Creatinine Clr Calc Pharmacy 10.5; Estimated Glomerular Filt Rate 10; Glucose Random 105 mg/dL (60-115); Potassium 3.5 mmol/L (3.3-5.1); Sodium 135 mmol/L (135-145)
[2023-08-02] MEDS: Metoprolol Succinate ER 25 MG TAB.ER.24H PO (07:53)
[2023-08-02] MEDS: Oseltamivir Phosphate 30 MG CAPSULE PO (07:53)
[2023-08-02] MEDS: lisinopriL 20 MG TABLET PO (07:53)
[2023-08-02] MEDS: Albuterol/Iprat 2.5/0.5MG 3 ML AMPUL.NEB INHALE ×4 (07:53→19:40)
--- NOTE | 2023-08-02 09:45 | MHC.CM.PN ---
IMM 08/02. Pt with encephalopathy, agitation, CM intake done with pts HCP/ex-spouse Lenora May (who remains close with the pt). Pt lives in an efficiency apartment in [place] (with 4 steps to get into home). Pts uses a cane, and walker. Pt has [facility] for 2 hrs/wk for cleaning, and MOW's on /Th. Pt goes to [facility] for HD on //. Pt will need assistance with transportation at D/C. PT recommends acute rehab, referral placed to [facility]. PCP: Dr. Gerald Davis
--- NOTE | 2023-08-02 11:09 | PM.PNNEP ---
Subjective Subjective Date of Service: 08/02/23 Interval history: seen and examined had HD yesterday no complaints Physical Exam Vital Signs: Vital Signs: Last Vital Signs Temp 98.8 F 08/02/23 07:17 Pulse 88 08/02/23 10:06 Resp 16 08/02/23 07:53 BP 153/78 H 08/02/23 07:17 Pulse Ox 97 08/02/23 07:17 O2 Del Method Room Air 08/02/23 07:17 O2 Flow Rate 4 08/01/23 08:12 BMI result Body Mass Index 19.9 Const: General: alert and awake HEENT: Head: Yes normocephalic and Yes atraumatic Neck: Neck: Yes supple Resp: Auscultation: diminished lung sounds Cardio: Heart sounds: S1 normal heart sound present and S2 normal heart sound present GI: Palpation (GI): Soft to palpation and nontender Extrem: General: Yes no pedal edema Objective Data Labs 08/01/23 05:24 08/02/23 06:14 Labs: Laboratory Results - last 24 hr 08/01/23 08/02/23 08/02/23 05:24 06:14 06:14 Sodium Cancelled 135 Potassium Cancelled Chloride Carbon Dioxide Anion Gap BUN Creatinine Estim Creat Clear Calc Estimated GFR Random Glucose Calcium Respiratory Panel Cuellar See Note Adenovirus (Rapid PCR) Not Detected B.pert (TEM-PCR) Not Detected B.parapertussis DNA PCR Not Detected C. pneumoniae DNA (PCR) Not Detected Coronavirus OC43 (PCR) Not Detected Coronavirus HKU1 (PCR) Not Detected Coronavirus 229E (PCR) Not Detected Coronavirus NL63 (PCR) Not Detected Human Metapneumovir PCR Not Detected Influenza A (RT-PCR) Detected A Influenza B (RT-PCR) Not Detected M. pneumoniae (PCR) Not Detected Parainfluenza 1 (PCR) Not Detected Parainfluenza 2 (PCR) Not Detected Parainfluenza 3 (PCR) Not Detected Parainfluenza 4 (PCR) Not Detected RSV (PCR) Not Detected Entero/Rhino (PCR) Not Detected SARS-CoV-2 RNA (RT-PCR) Not Detected 08/02/23 08/02/23 08/02/23 06:14 06:14 06:14 Sodium Potassium 3.5 Chloride Cancelled 94 L Carbon Dioxide Cancelled 24 Anion Gap Cancelled BUN Creatinine Estim Creat Clear Calc Estimated GFR Random Glucose Calcium Respiratory Panel [place] Adenovirus (Rapid PCR) B.pert (TEM-PCR) B.parapertussis DNA PCR C. pneumoniae DNA (PCR) Coronavirus OC43 (PCR) Coronavirus HKU1 (PCR) Coronavirus 229E (PCR) Coronavirus NL63 (PCR) Human Metapneumovir PCR Influenza A (RT-PCR) Influenza B (RT-PCR) M. pneumoniae (PCR) Parainfluenza 1 (PCR) Parainfluenza 2 (PCR) Parainfluenza 3 (PCR) Parainfluenza 4 (PCR) RSV (PCR) Entero/Rhino (PCR) SARS-CoV-2 RNA (RT-PCR) 08/02/23 08/02/23 08/02/23 06:14 06:14 06:14 Sodium Potassium Chloride Carbon Dioxide Anion Gap 21 H BUN Cancelled 45 H Creatinine Cancelled 5.44 H* Estim Creat Clear Calc Cancelled Estimated GFR Random Glucose Calcium Respiratory Panel [place] Adenovirus (Rapid PCR) B.pert (TEM-PCR) B.parapertussis DNA PCR C. pneumoniae DNA (PCR) Coronavirus OC43 (PCR) Coronavirus HKU1 (PCR) Coronavirus 229E (PCR) Coronavirus NL63 (PCR) Human Metapneumovir PCR Influenza A (RT-PCR) Influenza B (RT-PCR) M. pneumoniae (PCR) Parainfluenza 1 (PCR) Parainfluenza 2 (PCR) Parainfluenza 3 (PCR) Parainfluenza 4 (PCR) RSV (PCR) Entero/Rhino (PCR) SARS-CoV-2 RNA (RT-PCR) 08/02/23 08/02/23 08/02/23 06:14 06:14 06:14 Sodium Potassium Chloride Carbon Dioxide Anion Gap BUN Creatinine Estim Creat Clear Calc 10.5 Estimated GFR Cancelled 10 Random Glucose Cancelled 105 Calcium Cancelled Respiratory Panel [place] Adenovirus (Rapid PCR) B.pert (TEM-PCR) B.parapertussis DNA PCR C. pneumoniae DNA (PCR) Coronavirus OC43 (PCR) Coronavirus HKU1 (PCR) Coronavirus 229E (PCR) Coronavirus NL63 (PCR) Human Metapneumovir PCR Influenza A (RT-PCR) Influenza B (RT-PCR) M. pneumoniae (PCR) Parainfluenza 1 (PCR) Parainfluenza 2 (PCR) Parainfluenza 3 (PCR) Parainfluenza 4 (PCR) RSV (PCR) Entero/Rhino (PCR) SARS-CoV-2 RNA (RT-PCR) 08/02/23 06:14 Sodium Potassium Chloride Carbon Dioxide Anion Gap BUN Creatinine Estim Creat Clear Calc Estimated GFR Random Glucose Calcium 8.6 Respiratory Panel Cuellar Adenovirus (Rapid PCR) B.pert (TEM-PCR) B.parapertussis DNA PCR C. pneumoniae DNA (PCR) Coronavirus OC43 (PCR) Coronavirus HKU1 (PCR) Coronavirus 229E (PCR) Coronavirus NL63 (PCR) Human Metapneumovir PCR Influenza A (RT-PCR) Influenza B (RT-PCR) M. pneumoniae (PCR) Parainfluenza 1 (PCR) Parainfluenza 2 (PCR) Parainfluenza 3 (PCR) Parainfluenza 4 (PCR) RSV (PCR) Entero/Rhino (PCR) SARS-CoV-2 RNA (RT-PCR) Microbiology Microbiology Results: Microbiology 07/31/23 16:35 Blood - Venous Blood Culture - Preliminary No growth after 24 hours. 07/31/23 16:32 Blood - Venous Blood Culture - Preliminary No growth after 24 hours. Procedures Date of Service Date of Service: 08/02/23 Assessment & Plan Assessment and plan (1) ESRD (end stage renal disease): Status: Acute (2) Anemia: Status: Acute Plan usually has HD at [facility]-- 2 [address] followed by Dr Sweet presented with fall and acute hypoxic respiratory failure nephrogenic anemia REC HD tomorrow renal diet phosphate binders no need for LC Time Spent With Patient Time: Total time managing care of this patient today ____ minutes. Progress Note: Quality Stroke Does the patient have a stroke diagnosis?: No
--- NOTE | 2023-08-02 12:25 | P.PNIM_ITS ---
Subjective Subjective Date of Service: 08/02/23 Review of Systems Follow-up fluid overload Better today after dialysis Physical Exam 2 Vital Signs: Vital Signs: Last Vital Signs Temp 97.8 F 08/02/23 11:12 Pulse 68 08/02/23 11:39 Resp 18 08/02/23 11:39 BP 147/69 H 08/02/23 11:12 Pulse Ox 98 08/02/23 11:12 O2 Del Method Room Air 08/02/23 11:12 O2 Flow Rate 4 08/01/23 08:12 BMI result Body Mass Index 19.9 Appearing in no acute distress lung sounds are clear to auscultation heart regular rate rhythm, clear S1, S2 positive bowel sounds, abdomen is soft, nontender neuro patient is alert x3, no focal deficits Objective Data Active Medications Acetaminophen (Acetaminophen 325 Mg Tablet) 650 mg PO Q6H PRN PRN Reason: Pain, Mild (Pain Scale 1-3) Acetaminophen (Acetaminophen Supp 650 Mg Supp.Rect) 650 mg AL Q4H PRN PRN Reason: Fever Last Admin: 07/31/23 22:04 Dose: 650 mg Documented By: PUSHPA Albuterol/Ipratropium (Albuterol/Iprat 2.5/0.5mg 3 Ml Ampul.Neb) 3 ml INHALE RQ4H WHILE AWAKE [facility] Last Admin: 08/02/23 11:38 Dose: 3 ml Documented By: SHAUN Benzonatate (Benzonatate 100 Mg Capsule) 100 mg PO TID PRN PRN Reason: Cough Docusate Sodium (Docusate Sodium 100 Mg Capsule) 100 mg PO DAILY PRN PRN Reason: Constipation Heparin Sodium (Porcine) (Heparin Sodium,Porcine 5,000 Unit/Ml Vial) 5,000 unit SUBCUT Q8H [facility] Last Admin: 08/02/23 12:14 Dose: Not Given Documented By: MAGALY Non-Admin Reason: Patient Refused Hydralazine HCl (Hydralazine Hcl 20 Mg/Ml Vial) 5 mg IVPUSH Q4H PRN; Protocol PRN Reason: SBP > 160 Last Admin: 08/01/23 05:45 Dose: 5 mg Documented By: PREETI Lisinopril (Lisinopril 20 Mg Tablet) 20 mg PO DAILY [facility]; Protocol Last Admin: 08/02/23 07:53 Dose: 20 mg Documented By: MAGAYL Melatonin (Melatonin 3 Mg Tablet) 6 mg PO BEDTIME PRN PRN Reason: Insomnia Metoprolol Succinate (Metoprolol Succinate Er 25 Mg Tab.Er.24h) 25 mg PO DAILY [facility]; Protocol Last Admin: 08/02/23 07:53 Dose: 25 mg Documented By: MAGALY Oseltamivir Phosphate (Oseltamivir Phosphate 30 Mg Capsule) 30 mg PO MOWEFR [facility] Stop: 08/24/23 07:19 Sodium Chloride (0.9 % Sodium Chloride Flush 3 Ml Syringe) 3 ml IVFLUSH QSHIFT [facility] Last Admin: 08/02/23 07:54 Dose: 3 ml Documented By: MAGALY Labs 08/01/23 05:24 08/02/23 06:14 Labs: Laboratory Results - last 24 hr 08/02/23 08/02/23 08/02/23 06:14 06:14 06:14 Anion Gap Cancelled 21 H Estim Creat Clear Calc Cancelled 10.5 Estimated GFR Cancelled Random Glucose Calcium 08/02/23 08/02/23 08/02/23 06:14 06:14 06:14 Anion Gap Estim Creat Clear Calc Estimated GFR 10 Random Glucose Cancelled 105 Calcium Cancelled 8.6 Microbiology Microbiology Results: Microbiology 07/31/23 16:35 Blood Culture - Preliminary Blood - Venous No growth after 24 hours. 07/31/23 16:32 Blood Culture - Preliminary Blood - Venous No growth after 24 hours. Assessment and Plan (1) Anemia: Status: Acute (2) ESRD (end stage renal disease): Status: Acute Plan Pt is a 73-year-old male with a PMH significant for?ESRD on HD Tue/Tue/Tue, HTN, paroxysmal a flutter, hx of pericardial effusion, and mood disorder who presents to the ED after dizziness, lightheadedness, and fall at home. Pt will be admitted to the hospital treatment and further evaluation acute hypoxic respiratory failure in the setting of volume overload in a patient with ESRD on hemodialysis. Influenza a Tamiflu, renally dosed Acute hypoxic respiratory failure in the setting of volume overload secondary to ESRD. Resolved CT of chest showing interstitial pulmonary edema with bilateral small pleural effusions, no evidence of consolidation, COVID s/p dialysis Titrate supplemental O2 >92, wean as tolerated Monitor respiratory status acute encephalopathy. unspecified. Resolved Pt AOx2, not to place or situation baseline mentation unclear UA negative, ammonia WNL, tox screen negative Possibly secondary to hypoxia from volume overload Treat as above with dialysis Monitor mental stauts ESRD on HD M/W/F Last dialyzed on 08/01/2023 Nephrology following Monitor on telemetry Frequent falls at home PT evaluation>home with PT, HCP concerned and wants him to go to rehab HTN Continue home meds Anemia of chronic disease Stable, at baseline Mood disorder Continue home meds Full Code Attending:?Dr. Salcedo DVT Prophylaxis: Heparin continue hospitalization of at least two nights for treatment of?acute hypoxic respiratory failure in the setting of volume overload in a pt with ESRD on hemodialysis. Pt will require supplemental oxygen, dialysis, and close monitoring of labs, metal status, and respiratory status. Quality Stroke Does the patient have a stroke diagnosis?: No VTE Prior VTE?: No VTE Risk Level:: Medical - moderate - high VTE Device Contraindication: Treatment Not Indicated VTE Drug Contraindication: N/A - Med Ordered
[2023-08-02] MEDS: clonazePAM 1 MG TABLET PO ×3 (12:48→20:48)
[2023-08-02] MEDS: Furosemide 40 MG TABLET 80 MG PO (12:48)
[2023-08-02] MEDS: lamoTRIgine 25 MG TABLET 75 MG PO (12:48)
[2023-08-02] MEDS: Acetaminophen 325 MG TABLET 650 MG PO (17:16)
[2023-08-02] MEDS: traZODone HCL 50 MG TABLET PO (20:48)
[2023-08-02] MEDS: OXcarbazepine 300 MG TABLET 600 MG PO (20:48)
[2023-08-03] VITALS: BP 139/65; PULSE 69; RESP 20; TEMP 36.1; O2SAT 96
[2023-08-03] MEDS: 0.9 % Sodium Chloride Flush 3 ML SYRINGE IVFLUSH ×3 (00:17→15:56)
[2023-08-03 03:05] VITALS: BP 148/59; PULSE 73; RESP 20; TEMP 36.1; O2SAT 96
[2023-08-03 06:51] VITALS: BP 163/72; PULSE 75; RESP 18; TEMP 36.9; O2SAT 99
[2023-08-03] MEDS: Albuterol/Iprat 2.5/0.5MG 3 ML AMPUL.NEB INHALE ×2 (07:44→17:26)
[2023-08-03 08:11] VITALS: PULSE 75; RESP 18; O2SAT 96
[2023-08-03 08:13] LABS: Anion Gap 20 (12-20); Blood Urea Nitrogen 62 mg/dL (9-16); Calcium 8.3 mg/dL (8.4-10.2); Carbon Dioxide 25 mmol/L (22-29); Chloride 90 mmol/L (96-108); Creatinine Clr Calc Pharmacy 8.4; Estimated Glomerular Filt Rate 8; Glucose Random 86 mg/dL (60-115); Potassium 3.6 mmol/L (3.3-5.1); Sodium 131 mmol/L (135-145)
--- NOTE | 2023-08-03 11:04 | P.PNIM_ITS ---
Subjective Subjective Date of Service: 08/03/23 Review of Systems Follow-up fluid overload better after initial diaysis has flu, no hypoxia Physical Exam 2 Vital Signs: Vital Signs: Last Vital Signs Temp 98.5 F 08/03/23 06:51 Pulse 75 08/03/23 08:11 Resp 18 08/03/23 08:11 BP 163/72 H 08/03/23 06:51 Pulse Ox 99 08/03/23 06:51 O2 Del Method Room Air 08/03/23 06:51 O2 Flow Rate 2 08/02/23 14:16 BMI result Body Mass Index 19.9 Appearing in no acute distress lung sounds are clear to auscultation heart regular rate rhythm, clear S1, S2 positive bowel sounds, abdomen is soft, nontender neuro patient is alert x3, no focal deficits Objective Data Active Medications Acetaminophen (Acetaminophen 325 Mg Tablet) 650 mg PO Q6H PRN PRN Reason: Pain, Mild (Pain Scale 1-3) Last Admin: 08/02/23 17:16 Dose: 650 mg Documented By: MAGALY Acetaminophen (Acetaminophen Supp 650 Mg Supp.Rect) 650 mg CA Q4H PRN PRN Reason: Fever Last Admin: 07/31/23 22:04 Dose: 650 mg Documented By: PUSHPA Albuterol Sulfate (Albuterol Sulfate 90 Mcg 8 Gm Inhaler) 2 puff INHALE RQ6H PRN PRN Reason: Shortness Of Breath Or Wheezing Albuterol/Ipratropium (Albuterol/Iprat 2.5/0.5mg 3 Ml Ampul.Neb) 3 ml INHALE RQ4H WHILE AWAKE [facility] Last Admin: 08/03/23 07:44 Dose: 3 ml Documented By: JOHN Ascorbic Acid (Ascorbic Acid 500 Mg Tablet) 500 mg PO DAILY [facility] Benzonatate (Benzonatate 100 Mg Capsule) 100 mg PO TID PRN PRN Reason: Cough Clonazepam (Clonazepam 1 Mg Tablet) 1 mg PO TID [facility] Last Admin: 08/02/23 20:48 Dose: 1 mg Documented By: LUIS ALFREDO Cyanocobalamin (Cyanocobalamin (Vitamin B-12) 1,000 Mcg Tablet) 1,000 mcg PO DAILY [facility] Docusate Sodium (Docusate Sodium 100 Mg Capsule) 100 mg PO DAILY PRN PRN Reason: Constipation Ergocalciferol (Ergocalciferol (Vitamin D2) 1,250 Mcg Capsule) 1,250 mcg PO Q30D [facility] Last Admin: 08/02/23 12:49 Dose: Not Given Documented By: MAGALY Non-Admin Reason: Patient Refused Furosemide (Furosemide 40 Mg Tablet) 80 mg PO SUTUTHSA [facility]; Protocol Last Admin: 08/02/23 12:48 Dose: 80 mg Documented By: MAGALY Heparin Sodium (Porcine) (Heparin Sodium,Porcine 5,000 Unit/Ml Vial) 5,000 unit SUBCUT Q8H [facility] Last Admin: 08/03/23 05:23 Dose: Not Given Documented By: LUIS ALFREDO Non-Admin Reason: Patient Refused Hydralazine HCl (Hydralazine Hcl 20 Mg/Ml Vial) 5 mg IVPUSH Q4H PRN; Protocol PRN Reason: SBP > 160 Last Admin: 08/01/23 05:45 Dose: 5 mg Documented By: PREETI Lamotrigine (Lamotrigine 25 Mg Tablet) 75 mg PO DAILY [facility] Last Admin: 08/02/23 12:48 Dose: 75 mg Documented By: MAGALY Lisinopril (Lisinopril 20 Mg Tablet) 20 mg PO DAILY [facility]; Protocol Last Admin: 08/02/23 07:53 Dose: 20 mg Documented By: MAGALY Lisinopril (Lisinopril 20 Mg Tablet) 20 mg PO DAILY [facility]; Protocol Melatonin (Melatonin 3 Mg Tablet) 6 mg PO BEDTIME PRN PRN Reason: Insomnia Metoprolol Succinate (Metoprolol Succinate Er 25 Mg Tab.Er.24h) 25 mg PO DAILY [facility]; Protocol Last Admin: 08/02/23 07:53 Dose: 25 mg Documented By: MAGALY Metoprolol Succinate (Metoprolol Succinate Er 12.5 Mg Halftab.Er.24h) 12.5 mg PO DAILY [facility]; Protocol Multivitamins/Vitamin C (Multivitamin Tablet) 1 tab PO DAILY [facility] Oseltamivir Phosphate (Oseltamivir Phosphate 30 Mg Capsule) 30 mg PO MOWEFR [facility] Stop: 08/24/23 07:19 Oxcarbazepine (Oxcarbazepine 300 Mg Tablet) 600 mg PO BID [facility] Last Admin: 08/02/23 20:48 Dose: 600 mg Documented By: LUIS ALFREDO Oxycodone HCl (Oxycodone Hcl Immed Release 5 Mg Tablet) 5 mg PO Q6H PRN PRN Reason: Pain, Moderate(Pain Scale 4-6) Prochlorperazine Maleate (Prochlorperazine Maleate 5 Mg Tablet) 5 mg PO BID [facility] Last Admin: 08/02/23 21:37 Dose: Not Given Documented By: LUIS ALFREDO Non-Admin Reason: Med Not Available Sodium Chloride (0.9 % Sodium Chloride Flush 3 Ml Syringe) 3 ml IVFLUSH QSHIFT [facility] Last Admin: 08/03/23 00:17 Dose: 3 ml Documented By: LUIS ALFREDO Sodium Polystyrene Sulfonate (Sodium Polystyrene Sulfon/Sorb 15 Gm/60 Ml Oral.Susp) 15 gm PO SuTuThSa@0900 [facility] Trazodone HCl (Trazodone Hcl 50 Mg Tablet) 50 mg PO BEDTIME [facility] Last Admin: 08/02/23 20:48 Dose: 50 mg Documented By: LUIS ALFREDO Labs 08/01/23 05:24 08/03/23 07:12 Labs: Laboratory Results - last 24 hr 08/03/23 07:12 Hold Purple Top SEE NOTE Anion Gap 20 Estim Creat Clear Calc 8.4 Estimated GFR 8 Random Glucose 86 Calcium 8.3 L Microbiology Microbiology Results: Microbiology 07/31/23 16:35 Blood Culture - Preliminary Blood - Venous No growth after 48 hours. 07/31/23 16:32 Blood Culture - Preliminary Blood - Venous No growth after 48 hours. Assessment and Plan (1) Anemia: Status: Acute (2) ESRD (end stage renal disease): Status: Acute Plan Pt is a 73-year-old male with a PMH significant for?ESRD on HD Tue/Tue/Tue, HTN, paroxysmal a flutter, hx of pericardial effusion, and mood disorder who presents to the ED after dizziness, lightheadedness, and fall at home. Pt will be admitted to the hospital treatment and further evaluation acute hypoxic respiratory failure in the setting of volume overload in a patient with ESRD on hemodialysis. Hyponatremia mild monitor BMP fl rest urine lytes and osmo Influenza a Tamiflu, renally dosed MWF Acute hypoxic respiratory failure in the setting of volume overload secondary to ESRD. Resolved CT of chest showing interstitial pulmonary edema with bilateral small pleural effusions, no evidence of consolidation, COVID s/p dialysis Titrate supplemental O2 >92, wean as tolerated Monitor respiratory status acute encephalopathy. unspecified. Resolved Pt AOx2, not to place or situation baseline mentation unclear UA negative, ammonia WNL, tox screen negative Possibly secondary to hypoxia from volume overload Treat as above with dialysis Monitor mental stauts ESRD on HD M/W/F Last dialyzed on 08/03/2023 Nephrology following Monitor on telemetry Frequent falls at home PT following plan for STR HTN Continue home meds Anemia of chronic disease Stable, at baseline Mood disorder Continue home meds Full Code Attending:?Dr. Salcedo DVT Prophylaxis: Heparin DISPO will go to STR after 3rd dose of tamiflu continue hospitalization of at least two nights for treatment of?acute hypoxic respiratory failure in the setting of volume overload in a pt with ESRD on hemodialysis. Pt will require supplemental oxygen, dialysis, and close monitoring of labs, metal status, and respiratory status. Quality Stroke Does the patient have a stroke diagnosis?: No VTE Prior VTE?: No VTE Risk Level:: Medical - moderate - high VTE Device Contraindication: Treatment Not Indicated VTE Drug Contraindication: N/A - Med Ordered
--- NOTE | 2023-08-03 11:36 | P.PNNP_ITS ---
Subjective Subjective Date of Service: 08/03/23 Interval history: seen and examined on HD no complaints Physical Exam 2 Vital Signs: Vital Signs: Last Vital Signs Temp 98.5 F 08/03/23 06:51 Pulse 75 08/03/23 08:11 Resp 18 08/03/23 08:11 BP 163/72 H 08/03/23 06:51 Pulse Ox 99 08/03/23 06:51 O2 Del Method Room Air 08/03/23 06:51 O2 Flow Rate 2 08/02/23 14:16 BMI result Body Mass Index 19.9 Const: General: alert and awake HEENT: Head: Yes normocephalic and Yes atraumatic Neck: Neck: Yes supple Resp: Auscultation: diminished lung sounds Cardio: Heart sounds: S1 normal heart sound present and S2 normal heart sound present GI: Palpation (GI): Soft to palpation and nontender Extrem: General: Yes no pedal edema Objective Data Labs 08/01/23 05:24 08/03/23 07:12 Labs: Laboratory Results - last 24 hr 08/03/23 07:12 Hold Purple Top SEE NOTE Sodium 131 L Potassium 3.6 Chloride 90 L Carbon Dioxide 25 Anion Gap 20 BUN 62 H Creatinine 6.79 H* Estim Creat Clear Calc 8.4 Estimated GFR 8 Random Glucose 86 Calcium 8.3 L Microbiology Microbiology Results: Microbiology 07/31/23 16:35 Blood - Venous Blood Culture - Preliminary No growth after 48 hours. 07/31/23 16:32 Blood - Venous Blood Culture - Preliminary No growth after 48 hours. Procedures Date of Service Date of Service: 08/03/23 Assessment & Plan Assessment and plan (1) ESRD (end stage renal disease): Status: Acute (2) Anemia: Status: Acute Plan usually has HD at [facility] -- [address] Sweet presented with fall and acute hypoxic respiratory failure nephrogenic anemia hypervolemic hyponatremia REC HD today optimize volume status renal diet phosphate binders no need for LC Time Spent With Patient Time: Total time managing care of this patient today ____ minutes. Progress Note: Quality Stroke Does the patient have a stroke diagnosis?: No
--- NOTE | 2023-08-03 12:26 | P.DS_ITS ---
DS: Providers Provider Date of Service: 08/03/23 Date of admission: 07/31/23 19:48 Primary care physician: Gerald Davis MD Consults: 07/31/23 19:53 Consult to Nephrology Routine Consulting Provider: Venkat Medrano Reason for consultation: Pt in fluid overload, in need of dialysis Has provider been notified: Yes DS: Diagnosis Discharge Diagnosis (1) ESRD (end stage renal disease): Status: Acute (2) Anemia: Status: Acute DS: Summary Hospital Course Hospital Course: History and physical as per admitting provider. Pt is a 73-year-old male with a PMH significant for?ESRD on HD Tue/Tue/Tue, HTN, paroxysmal a flutter, hx of pericardial effusion, and mood disorder who presents to the ED after dizziness, lightheadedness, and fall at home. Patient is somnolent, alert and oriented to self and time, but not to place or situation. Patient is unable/unwilling to provide accurate HPI or explain why he is here. Reached out to patient's primary contact, but received no answer. HPI thus provided by chart and provider review. Apparently patient reports feeling lightheaded and dizziness earlier today when he fell to the ground, denied head strike or loss of consciousness or any traumatic injury. Apparently he has been experiencing frequent falls at home with shortness of breath and nonproductive cough. Patient on hemodialysis M/W/F, last dialyzed 2 days ago on 07/29/2023. In the ED patient was initially placed on BiPAP and then weaned to OxyMask. Patient has been somewhat agitated in the ED, attempting to remove BiPAP and OxyMask as well as IVs. Respiratory attempted to wean patient from OxyMask by placing on 6 L NC, but patient breathing through mouth while asleep, and was desatting into the upper 80s; patient was placed back on OxyMask. Unclear if patient's agitation and inability/unwillingness to participate in interview and examination reflect any acute encephalopathy or are near patient's baseline. CBC shows normocytic anemia of 11.5/33.9, near patient's baseline. Creatinine mildly elevated at 5.76. Lactic acid WNL at 1.4. Ammonia WNL at 14. Troponin 66.7 with repeat without delta at 90.6, and BNP elevated at 4296. No clear source of bacterial infection: No leukocytosis, UA negative for UTI, CXR showed bronchial wall thickening that may be infectious and or inflammatory, but CT of chest was negative for focal consolidation. CT of chest did show interstitial pulmonary edema with small pleural effusions and moderate bilateral lobe atelectasis. CT of head negative for acute intracranial pathology, though did show chronic white matter small-vessel ischemic changes. CT of cervical spine negative for acute fractures or subluxation. EKG showed normal sinus rhythm without evidence of significant ST elevations or depressions. Pt was treated with furosemide, fentanyl, DuoNebs, nitroglycerin paste, ceftriaxone, and azithromycin. ED clinician reached out Nephrology who did not feel like there was a need for emergent hemodialysis. Pt will be admitted to the hospital treatment and further evaluation acute hypoxic respiratory failure in the setting of volume overload in a patient with ESRD on hemodialysis. 73 year old man treated for volume overload due to missed dialysis session. He had noted pulmonary edema and small pleural effusions on chest CT with no consolidation. He had been diagnosed with flu on 08/01/2023. Patient was dialysis lost the following day and his symptoms significantly improved. He was seen by Nephrology and had a dialysis session today as well. He also has a history of frequent falls and will be transferred to short-term rehab. His acute encephalopathy that he had initially was resolved after dialysis. He was started on Tamiflu on 116, will give total 5 days on dialysis days. Patient this time is hemodynamically stable. Plan for discharge to short-term rehab. Hypertension. Continue medications Anemia of chronic disease. Stable. Did not require transfusion during admission Mental health. Continue home medications End-stage renal disease on hemodialysis Tuesday, Tuesday and Tuesday, last dialysis session 08/03/2022 Time Attestation Discharge coordination time: Greater than 30 minutes Quality: Safe Use of Opioids Does Pt have an Active Cancer Diagnosis on the Problem List?: No Quality: Stroke Does the patient have a stroke diagnosis?: No Physical Exam Vital Signs: Vital Signs: Last Vital Signs Temp 98.5 F 08/03/23 06:51 Pulse 75 08/03/23 08:11 Resp 18 08/03/23 08:11 BP 163/72 H 08/03/23 06:51 Pulse Ox 99 08/03/23 06:51 O2 Del Method Room Air 08/03/23 06:51 O2 Flow Rate 2 08/02/23 14:16 BMI result Body Mass Index 19.9 Appearing in no acute distress head is normocephalic atraumatic eyes pupils are PERRLA sclera is anicteric mouth throat mucous membranes are intact and moist neck is supple no lymphadenopathy, no JVD noted lung sounds are clear to auscultation heart regular rate rhythm, clear S1, S2 positive bowel sounds, abdomen is soft, nontender neuro patient is alert x3, no focal deficits DS: Data Data Completed and Pending Completed studies during hospitalization [Text1]: Procedures Performance of Urinary Filtration, Intermittent, Less than 6 Hours Per Day (02/28/23) Labs on day of discharge: Laboratory Results - last 24 hr 08/03/23 07:12 Hold Purple Top SEE NOTE Sodium 131 L Potassium 3.6 Chloride 90 L Carbon Dioxide 25 Anion Gap 20 BUN 62 H Creatinine 6.79 H* Estim Creat Clear Calc 8.4 Estimated GFR 8 Random Glucose 86 Calcium 8.3 L Preliminary micro results at discharge 07/31/23 16:35 Blood Culture - Preliminary Blood - Venous No growth after 48 hours. 07/31/23 16:32 Blood Culture - Preliminary Blood - Venous No growth after 48 hours. Discharge Plan Discharge Anticipated Discharge Date/Time: 08/03/23 11:14 Patient Disposition: Home, Self-Care Discharge Diagnosis: Hyponatremia Influenza A Acute hypoxic respiratory failure secondary to volume overload End-stage renal disease on dialysis Acute encephalopathy Referrals: [facility] [Outside] - 1 Week Gerald Davis MD [Primary Care Provider] - 1 Week Discharge Medications: New oseltamivir 30 mg Capsule 30 mg PO MOWEFR Qty: 8 0RF Continued trazodone 50 mg tablet 50 mg PO BEDTIME lisinopril 20 mg tablet 20 mg PO DAILY clonazepam 1 mg tablet 1 mg PO TID cyanocobalamin (vitamin B-12) 1,000 mcg Tablet 1,000 mcg PO DAILY lamotrigine 25 mg tablet 75 mg PO QAM ascorbic acid (vitamin C) 500 mg Tablet 500 mg PO DAILY furosemide 80 mg tablet 80 mg PO SUTUTHSA oxcarbazepine 600 mg tablet 600 mg PO BID sodium polystyrene sulfonate Powder 15 g PO SUTUTHSA prochlorperazine maleate 5 mg tablet 5 mg PO BID albuterol sulfate [Ventolin HFA] 90 mcg/actuation HFA aerosol inhaler 2 puff INHALATION Q6H PRN (Reason: Shortness Of Breath Or Wheezing) vitamin B complex Tablet 1 tab PO DAILY ergocalciferol (vitamin D2) 1,250 mcg (50,000 unit) capsule 1,250 mcg PO QMONTH metoprolol succinate 25 mg tablet extended release 24 hr 12.5 mg PO DAILY Discharge Orders: Discharge Order (Routine); Ordered 08/03/23 Ordered By: Milena Maloney Diet: Advance to usual diet Activity on Discharge: As tolerated Stand Alone Forms: Patient Portal Discharge page Care Plan Goals: Transfer to short-term rehab for physical therapy Health Concerns: Hyponatremia Influenza A Acute hypoxic respiratory failure secondary to volume overload End-stage renal disease on dialysis Acute encephalopathy Plan of Treatment: Follow-up with primary care provider as needed Take all medications as prescribed Assessment: See discharge summary
--- NOTE | 2023-08-03 12:55 | MHC.CM.PN ---
Pt is medically cleared for D/C to STR at [facility], pt will transport there at 6pm via BLS/[facility]. Pt and HCP aware and in agreement.
[2023-08-03] MEDS: lamoTRIgine 25 MG TABLET 75 MG PO (14:28)
[2023-08-03] MEDS: Multivitamin TABLET 1 TAB PO (14:29)
[2023-08-03] MEDS: Metoprolol Succinate ER 12.5 MG HALFTAB.ER.24H PO (14:29)
[2023-08-03] MEDS: lisinopriL 20 MG TABLET PO (14:29)
[2023-08-03] MEDS: Cyanocobalamin (Vitamin B-12) 1,000 MCG TABLET 1000 MCG PO (14:30)
[2023-08-03] MEDS: clonazePAM 1 MG TABLET PO (14:30)
[2023-08-03] MEDS: Ascorbic Acid 500 MG TABLET PO (14:30)
[2023-08-03] MEDS: Oseltamivir Phosphate 30 MG CAPSULE PO (14:30)
[2023-08-03] MEDS: OXcarbazepine 300 MG TABLET 600 MG PO (14:35)
[2023-08-03] MEDS: Prochlorperazine Maleate 5 MG TABLET PO (14:35)
[2023-08-03 14:59] VITALS: BP 133/70; PULSE 85; RESP 20; TEMP 36.7; O2SAT 96
[2023-08-03 16:28] LABS: Osmolality Urine 166 mosm/kg (373-1093)
[2023-08-03 16:30] LABS: Potassium Urine Random 7.2 mmol/L
[2023-08-03 17:26] VITALS: PULSE 80; RESP 20; O2SAT 96
== END 2023-08-03 18:30 | disposition home or self-care (01) | DRG 640 ==
LOC: HO.ED 18:20 → HO.EDOVER 21:02 → HO.IMC 08-01 14:45
PROVIDERS: Internal Medicine; Physician Assistant; Admitting Provider Student in an Organized Health Care Education/Training Program; Emergency Provider Emergency Medicine; PCP Family Medicine; Visit Provider Nurse Practitioner Acute Care
DX: E87.70 Fluid overload, unspecified (principal); J96.01 Acute respiratory failure with hypoxia; N18.6 End stage renal disease; I12.0 Hypertensive chronic kidney disease with stage 5 chronic kidney disease or end stage renal disease; G93.40 Encephalopathy, unspecified; J10.1 Influenza due to other identified influenza virus with other respiratory manifestations; Z91.158 Patient's noncompliance with renal dialysis for other reason; Z99.2 Dependence on renal dialysis; R29.6 Repeated falls; D63.1 Anemia in chronic kidney disease; E87.1 Hypo-osmolality and hyponatremia; Z20.822 Contact with and (suspected) exposure to COVID-19; Z79.899 Other long term (current) drug therapy
CPT/HCPCS: 36415; 70450; 71045; 71250; 72125; 80048; 80307; 81001; 82140; 82436; 82803; 83605; 83880; 83935; 84133; 84300; 84484; 85025; 85027; 87040; 87502; 87633; 87635; 90999; 92610; 93005; 94640; 97116; 97162; 99285; J0360; J0456; J0696; J1170; J1644; J1940; J2930; J3010

== ENCOUNTER → 2023-07-31 10:49 | Outpatient (BNV) | payer MEDICARE, OTHER, SELFPAY | PROVIDERS: Admitting Provider Student in an Organized Health Care Education/Training Program; Emergency Provider Emergency Medicine; PCP Family Medicine; Visit Provider Internal Medicine | DX: R42 Dizziness and giddiness (principal) | CPT/HCPCS: 93010 ==

== ENCOUNTER → 2023-07-31 19:48 | Outpatient (BNV) | payer MEDICARE, OTHER, SELFPAY | PROVIDERS: Admitting Provider Student in an Organized Health Care Education/Training Program; Emergency Provider Emergency Medicine; Visit Provider Student in an Organized Health Care Education/Training Program | DX: N18.6 End stage renal disease (principal); Z99.2 Dependence on renal dialysis; D63.1 Anemia in chronic kidney disease | CPT/HCPCS: 99223; 99232; 99239 ==

== ENCOUNTER 2023-09-01 12:59 | Outpatient (AMB) | payer MEDICARE, OTHER, SELFPAY ==
--- NOTE | 2023-09-01 13:08 | MHC.OFFVIS ---
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 Allergies bupropion [From WELLBUTRIN] Adverse Reaction (Unknown, Verified 09/01/23 13:12) CONSTIPATION NSAIDS (Non-Steroidal Anti-Inflamma [NSAIDS (NON-STEROIDAL ANTI-INFLAMMA] Adverse Reaction (Unknown, Verified 09/01/23 13:12) RENAL Najqmsr-OFY-JiY Reductase Inhibitor [CRWUYTQ-AGD-IGZ REDUCTASE INHIBITOR] Adverse Reaction (Unknown, Verified 09/01/23 13:12) UNK Medication List - Last Reconciled 09/01/23 by WILVER Seth albuterol sulfate 90 mcg/actuation (Ventolin HFA) 2 puffs inhalation Q6H PRN ascorbic acid (vitamin C) 500 mg PO DAILY clonazepam 1 mg PO TID cyanocobalamin (vitamin B-12) 1,000 mcg PO DAILY ergocalciferol (vitamin D2) 1,250 mcg PO QMONTH furosemide 80 mg PO SUTUTHSA lamotrigine 75 mg PO QAM lisinopril 20 mg PO DAILY metoprolol succinate ER 12.5 mg PO DAILY oseltamivir 30 mg PO MOWEFR oxcarbazepine 600 mg PO BID prochlorperazine maleate 5 mg PO BID sodium polystyrene sulfonate 15 grams PO SUTUTHSA trazodone 50 mg PO BEDTIME vitamin B complex 1 tab PO DAILY HPI 3 mth f/up HPI Details Igor is a 73-year-old male with past medical history of hypertension, smoking, end-stage renal disease and on dialysis, who was admitted to [facility] 02/2023 with increased shortness of breath and found to have pneumonia, pericardial effusion. During his admission he had a brief episode of atrial flutter. He was not started on anticoagulation. He was put on antibiotics and steroids and follow-up outpatient limited echo showed improvement in his effusion. He was readmitted to [facility] on 07/31/2022 with shortness of breath. He was treated with BiPAP and underwent dialysis with improvement in his condition. He tested positive for influenza. Today he reports that he has been doing well since his hospital discharge. He does not believe that he had influenza has he had no other symptoms that make him believe that diagnosis. He denies having fever or body aches. He did have shortness of breath. His breathing now has normalized. He denies PND, orthopnea or edema. No chest discomfort at rest or with activity. No heart palpitations, lightheadedness, presyncope, syncope, falls. Taking all meds as directed. Ex-/proxy is present. [facility] Medical History Anemia ESRD (end stage renal disease) ESRD (end stage renal disease) on dialysis CKD (chronic kidney disease) Hypoxia Atrial flutter Nicotine dependence, cigarettes, uncomplicated AV fistula Essential hypertension Mood disorder Effusion, pericardium Pleural effusion, left Chronic kidney 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 Surgical History History of colonoscopy History of hernia repair History of parathyroidectomy Social History Household Members: None Housing: Apartment Do you presently have visiting nurse or other home services: Yes (Housekeeping services) Alcohol intake: former Comment: PT REFUSING Patient Tobacco Use Status: Tobacco use Unknown Tobacco use type: Cigarette Cigarette Packs Per Day: 0.5 Cigarettes Per Day: 10.0 Years Smoked: 60 +/- e-Cigarette/Vaping Use: Currently Using Second Hand Smoke Exposure: Yes service: No Review of Systems Const All systems reviewed & are unremarkable except as noted in HPI and below ENT Denies dizziness Card Denies chest pain, Denies chest pain at rest, Denies chest pain with activity, Denies rapid heart rate, Denies pedal edema, Denies edema, Denies leg edema, Denies lightheadedness, Denies palpitations, Denies dyspnea, Denies dyspnea on exertion and Denies orthopnea Resp Denies cough, Denies dyspnea and Denies dyspnea on exertion GI Denies hematochezia and Denies change in stool character Musc Denies abnormal gait, Denies limited range of motion, Denies muscle cramps, Denies muscle weakness, Denies numbness, Denies radiating pain into limb, Denies stiffness and Denies tingling Neuro Denies abnormal gait, Denies dizziness, Denies numbness and Denies tingling Endo Denies palpitations Physical Exam Vital Signs: Last Vital Signs Pulse 59 09/01/23 13:09 BP 120/72 09/01/23 13:09 BMI result Body Mass Index 21.4 Const General: cooperative, comfortable and no acute distress Orientation/consciousness: patient oriented x3 Neck Neck: Yes normal visual inspection Resp Effort & Inspection: normal respiratory effort Auscultation: clear to auscultation bilaterally, no crackles, no rales, no rhonchi and no wheezes Cardio Jugular venous distension: no JVD Rate: regular rate Rhythm: regular rhythm Heart sounds: S1 normal heart sound present, S2 normal heart sound present, no murmurs and no rubs Neuro General: patient oriented x3 Extrem General: Yes normal to inspection Psych Appearance: grossly normal Mental Status: mental status grossly normal Speech and movement: Normal speech and movement present Assessment & Plan Assessment & Plan (1) Effusion, pericardium: Code(s): I31.39 - Other pericardial effusion (noninflammatory) Plan: [facility] admission 02/2023 for shortness of breath. Found to have pneumonia, pericardial effusion. Limited echo done on 03/01/2023 shows EF 45-50%, small to moderate pericardial effusion, no tamponade. Repeat echo the following day showed no change. He was managed medically with antibiotics and steroids. Notes indicate that his effusion may be related to the pneumonia. He also has end-stage renal disease and is undergoing dialysis. An outpatient limited echo done on 03/11/2023 shows EF 45-50%, trivial pericardial effusion. A full echocardiogram was completed on 05/19/2023 showing EF 45-50%, severe dilation of the left atrium, moderate MR, moderate increase in the RV systolic pressure, dilated ascending aorta of 4.1 cm, no significant pericardial effusion. He was continued on his usual Lasix 4 times weekly and his dialysis 3 times weekly. (2) Cardiomyopathy: Code(s): I42.9 - Cardiomyopathy, unspecified Plan: Mild cardiomyopathy noted on echocardiograms. A nuclear stress test was done on 08/18/2023 showing normal myocardial perfusion imaging. Cardiomyopathy is nonischemic. Cardiomyopathy could be related to frequent PVCs as seen on Holter below. On exam today as no clinical signs of heart failure. He continues with dialysis and follows closely with Nephrology. Signs and symptoms of heart failure reviewed. He is on lisinopril and metoprolol for neurohormonal xl modulation. Will continue these meds without change. Cardiology follow-up in 4 months, sooner if needed, to evaluate for any heart failure symptoms or recurrent AFib. (3) Atrial flutter: Code(s): I48.92 - Unspecified atrial flutter Plan: Brief episode of atrial flutter during 02/2023 hospital admission. It was thought to be related to acute illness/ pneumonia. He was put on metoprolol for rate control. Anticoagulation was not indicated due to isolated brief episode. Holter monitor done on 05/19/2023 for 3 days shows sinus rhythm, average heart rate 75, frequent PVCs, 7.4% of time, short NSVT runs, longest 7 beats, brief SVT, longest 12 beats. He was hospitalized at [facility] in July for influenza, shortness of breath. Discharge summary reviewed and no mention of atrial fibrillation or arrhythmia. EKG done 07/31/2023 shows sinus rhythm, rate 70. Today he reports no heart palpitations. Pulse is very regular on examination. He continues on metoprolol XL 25 mg daily. Chads Vasc score of 2 with age and hypertension. If he is found to have recurrent atrial fibrillation/ flutter going forward then will require anticoagulation. Patient informed of this and states understanding. (4) Enlarged pulmonary artery: Comment: (noted on 01/[address]) Code(s): I28.8 - Other diseases of pulmonary vessels Plan: Seen on recent CT scan at time of last admission. Echocardiogram shows dilated ascending aorta 4.1 cm. Blood pressure is well controlled. We will follow with periodic echoes (5) Essential hypertension: Code(s): I10 - Essential (primary) hypertension Plan: Well controlled at present. Taking all meds as directed. (6) Hospital discharge follow-up: Code(s): Z09 - Encounter for follow-up examination after completed treatment for conditions other than malignant neoplasm Plan: as above Plan Time spent on chart review, documentation, interview and assessment Coding Level of Care Code Est Pt Level 4 (01042) Diagnoses Effusion, pericardium I31.39 Cardiomyopathy I42.9 Atrial flutter I48.92 Enlarged pulmonary artery I28.8 Essential hypertension I10 Hospital discharge follow-up Z09 Time Spent (min) 28
[2023-09-01 13:09] VITALS: BP 120/72; PULSE 59; BMI 21.4
== END 2023-09-01 13:46 | disposition home or self-care (01) ==
PROVIDERS: PCP Family Medicine; Visit Provider Nurse Practitioner Family
DX: I31.39 Other pericardial effusion (noninflammatory) (principal); I42.9 Cardiomyopathy, unspecified; I48.92 Unspecified atrial flutter; I28.8 Other diseases of pulmonary vessels; I10 Essential (primary) hypertension; Z09 Encounter for follow-up examination after completed treatment for conditions other than malignant neoplasm
CPT/HCPCS: 99214

== ENCOUNTER → 2023-09-01 12:59 | Outpatient (BNVA) | payer MEDICARE, OTHER, SELFPAY | PROVIDERS: PCP Family Medicine; Visit Provider Nurse Practitioner Family | DX: Z09 Encounter for follow-up examination after completed treatment for conditions other than malignant neoplasm (principal); I31.39 Other pericardial effusion (noninflammatory); I42.9 Cardiomyopathy, unspecified; I48.92 Unspecified atrial flutter; I28.8 Other diseases of pulmonary vessels; I10 Essential (primary) hypertension | CPT/HCPCS: 99212 ==

== ENCOUNTER 2023-12-20 14:29 | Outpatient (AMB) | payer MEDICARE, OTHER, SELFPAY ==
--- NOTE | 2023-12-20 14:41 | MHC.OFFVIS ---
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 Metal Furniture Present Accompanied by: Spouse Allergies bupropion [From WELLBUTRIN] Adverse Reaction (Unknown, Verified 09/01/23 13:12) CONSTIPATION NSAIDS (Non-Steroidal Anti-Inflamma [NSAIDS (NON-STEROIDAL ANTI-INFLAMMA] Adverse Reaction (Unknown, Verified 09/01/23 13:12) RENAL Pdqempm-RLA-RcG Reductase Inhibitor [KHXSYYL-REX-FIK REDUCTASE INHIBITOR] Adverse Reaction (Unknown, Verified 09/01/23 13:12) UNK Medication List - Last Reconciled 12/20/23 by Kenny Bowden MD albuterol sulfate 90 mcg/actuation (Ventolin HFA) 2 puffs inhalation Q6H PRN ascorbic acid (vitamin C) 500 mg PO DAILY clonazepam 1 mg PO TID cyanocobalamin (vitamin B-12) 1,000 mcg PO DAILY ergocalciferol (vitamin D2) 1,250 mcg PO QMONTH furosemide 80 mg PO SUTUTHSA lamotrigine 100 mg PO QAM lisinopril 20 mg PO DAILY metoprolol succinate ER 12.5 mg PO DAILY oxcarbazepine 600 mg PO BID prochlorperazine maleate 5 mg PO BID sodium polystyrene sulfonate 15 grams PO SUTUTHSA trazodone 50 mg PO BEDTIME vitamin B complex 1 tab PO DAILY HPI Comments Details: Igor comes for follow-up, accompanied by his . He has been doing well from cardiac perspective. Denies any symptoms of palpitations says they are much better on medical therapy. No symptoms of heart failure. No prolonged irregular heartbeat. No orthopnea, PND, leg edema. Says he is doing well with current diuretic regimen and dialysis sessions. Denies any chest pain. No lightheadedness, syncope. Blood pressures been generally well controlled. [facility] Medical History Anemia ESRD (end stage renal disease) ESRD (end stage renal disease) on dialysis CKD (chronic kidney disease) Hypoxia Atrial flutter Nicotine dependence, cigarettes, uncomplicated AV fistula Essential hypertension Mood disorder Effusion, pericardium Pleural effusion, left Chronic kidney 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 Surgical History History of colonoscopy History of hernia repair History of parathyroidectomy Social History Household Members: None Housing: Apartment Do you presently have visiting nurse or other home services: Yes (Housekeeping services) Alcohol intake: former Comment: PT REFUSING Patient Tobacco Use Status: Tobacco use Unknown Tobacco use type: Cigarette Cigarette Packs Per Day: 0.5 Cigarettes Per Day: 10.0 Years Smoked: 60 +/- e-Cigarette/Vaping Use: Currently Using Second Hand Smoke Exposure: Yes service: No Review of Systems Const Denies chills, Denies fatigue, Denies fever(s), Denies frequent falls, Denies weakness, Denies weight gain and Denies weight loss ENT Denies dizziness Card Denies chest pain, Denies leg edema, Denies lightheadedness, Denies palpitations, Denies dyspnea, Denies dyspnea on exertion, Denies orthopnea and Denies other (loss of consciousness) Resp Denies cough, Denies dyspnea and Denies dyspnea on exertion GI Denies hematochezia and Denies change in stool character Musc Denies abnormal gait, Denies muscle weakness, Denies numbness, Denies radiating pain into limb and Denies tingling Neuro Denies abnormal gait, Denies dizziness, Denies frequent falls, Denies numbness, Denies tingling and Denies weakness Endo Denies fatigue and Denies palpitations Physical Exam Vital Signs: Last Vital Signs Pulse 62 12/20/23 14:42 BP 120/74 12/20/23 14:42 BMI result Body Mass Index 20.6 Const General: cooperative, comfortable, no acute distress and tired appearing Orientation/consciousness: patient oriented x3 Limitations: ambulation with cane Neck Neck: Yes normal visual inspection Resp Effort & Inspection: normal respiratory effort Auscultation: clear to auscultation bilaterally, no crackles, no rales, no rhonchi and no wheezes Cardio Jugular venous distension: no JVD Rate: regular rate Rhythm: regular rhythm Heart sounds: S1 normal heart sound present, S2 normal heart sound present, no murmurs and no rubs Neuro General: patient oriented x3 Extrem General: Yes normal to inspection Psych Appearance: grossly normal Mental Status: mental status grossly normal Speech and movement: Normal speech and movement present Assessment & Plan Assessment & Plan (1) Cardiomyopathy: Code(s): I42.9 - Cardiomyopathy, unspecified Category: Medical Plan: Cardiomyopathy with congestive heart failure currently euvolemic and well compensated on diuretic regimen with furosemide on nondialysis days and hemodialysis on 3 days a week. Doing well. No signs or symptoms of heart failure at this point time. Advised to continue current regimen. Continue current neurohormonal modulation with lisinopril as well as metoprolol which is low-dose given his baseline bradycardia. Management of heart failure was discussed. Importance of daily weight monitoring avoidance of salt loading was discussed. Follow-up echocardiogram in 5 months time. (2) NSVT (nonsustained ventricular tachycardia): Code(s): I47.29 - Other ventricular tachycardia Category: Medical Plan: Prior history of nonsustained ventricular tachycardia in setting of mild LV systolic dysfunction. Continue metoprolol therapy. No symptoms of lightheadedness, syncope, palpitations. Avoidance of stimulants was discussed. Follow-up Holter monitor in 5 months time. (3) Atrial flutter: Code(s): I48.92 - Unspecified atrial flutter Category: Medical Plan: Brief episodes of paroxysmal atrial flutter in the setting of acute medical illness. Has not had any clinical recurrence since then. No indication for anticoagulation therapy. Continue metoprolol therapy. Avoidance of stimulants was discussed. (4) Ascending aortic aneurysm: Code(s): I71.21 - Aneurysm of the ascending aorta, without rupture Category: Medical Plan: Mild ascending aortic aneurysm which has remained stable. Continue aggressive blood pressure control which is currently well optimized. Will follow up with echocardiogram in 5 months time. Follow up in the clinic in 6 months, sooner p.r.n.. Thank you for allowing me to partake in his care Coding Level of Care Code Est Pt Level 4 (48974) Diagnoses Cardiomyopathy I42.9 NSVT (nonsustained ventricular tachycardia) I47.29 Atrial flutter I48.92 Ascending aortic aneurysm I71.21
[2023-12-20 14:42] VITALS: BP 120/74; PULSE 62; BMI 20.6
== END 2023-12-20 15:05 | disposition home or self-care (01) ==
PROVIDERS: PCP Family Medicine; Visit Provider Internal Medicine Cardiovascular Disease
DX: I42.9 Cardiomyopathy, unspecified (principal); I47.29 Other ventricular tachycardia; I48.92 Unspecified atrial flutter; I71.21 Aneurysm of the ascending aorta, without rupture
CPT/HCPCS: 99214

== ENCOUNTER → 2023-12-20 14:29 | Outpatient (BNVA) | payer MEDICARE, OTHER, SELFPAY | PROVIDERS: PCP Family Medicine; Visit Provider Internal Medicine Cardiovascular Disease | DX: I42.9 Cardiomyopathy, unspecified (principal); I47.29 Other ventricular tachycardia; I48.92 Unspecified atrial flutter; I71.21 Aneurysm of the ascending aorta, without rupture; Z79.899 Other long term (current) drug therapy | CPT/HCPCS: 99212 ==

== ENCOUNTER 2024-04-04 15:11 | Inpatient (IN) | payer MEDICARE, OTHER, SELFPAY ==
--- NOTE | ~2024-04-04 | XR_ITS ---
EXAMINATION: XR CHEST CLINICAL INFORMATION: Fever. Covid. COMPARISON: CT chest dating 04/04/2024. TECHNIQUE: 2 views of the chest were obtained. FINDINGS: Minimal bibasilar patchy opacities which could represent atelectasis versus early infiltrates. No pleural effusion or pneumothorax. Stable cardiac mediastinal silhouette. XR/XR chest 2V IMPRESSION: Minimal bibasilar patchy opacities which could represent atelectasis versus early infiltrates. Electronically signed by: Kilo Biggs MD 04/07/2024 02:01 PM EDT
--- NOTE | ~2024-04-04 | CT_ITS ---
EXAM: CT HEAD WITHOUT CONTRAST CT CERVICAL SPINE INDICATION: AMS, weakness, falls TECHNIQUE: A noncontrast CT scan was performed from the skull base to the vertex. A noncontrast CT scan of the cervical spine was performed from the base of the skull through T1 at 2.5 mm and 0.625 mm collimation. Coronal and sagittal reformats were obtained at the acquisition workstation. This CT examination was performed using dose optimization techniques as appropriate, variously including the following: * Automated exposure control * Adjustment of mA and/or kV according to patient size (this includes techniques or standardized protocols for targeted exams where dose is matched to indication/reason for exam; i.e. extremities or head) * Use of iterative reconstruction technique Dose length product is 2481 mGy-cm. COMPARISON: CT head and cervical spine 07/31/2023 FINDINGS: Head: The inferior portion of the posterior fossa/cerebellum is not included in the [id number]. In the imaged portion of the brain, there is no evidence of acute intracranial hemorrhage or edematous territorial infarction. There is foci of increased attenuation in the subcortical region of the bilateral frontal lobes, which is suspected to be artifactual, but limits evaluation for hemorrhage. Mild cerebral atrophy.. Chronic white matter small vessel ischemic changes. No abnormal extra-axial fluid collections are identified. No acute calvarial fracture. Visualized portions of the paranasal sinuses and mastoid air cells are well-aerated. Cervical Spine: The atlantooccipital and atlantoaxial articulations remain well aligned. Straightening of the normal cervical lordosis. Stable grade 1 anterolisthesis of C4 on C5. No evidence of acute fracture. Multilevel disc degenerative changes, more prominent changes of severe C5-6 disc degeneration. Multilevel facet degeneration. The bony canal is maintained. No prevertebral soft tissue swelling. Lung apices are clear. CT/CT cervical spine wo IV con IMPRESSION: 1. The inferior aspect of the posterior fossa/cerebellum is not included in the [id number]. In addition, there is also increased attenuation in the subcortical region of bilateral frontal lobes, which is suspected artifactual. Consider repeat CT for further evaluation as clinically indicated. 2. The remainder the image head, no intracranial hemorrhage or edematous cerebral infarction is seen. 3. No CT evidence of acute cervical spine fracture. 4. Cervical spondylosis. Electronically signed by: Pb Ashley MD 04/04/2024 06:50 PM EDT
--- NOTE | ~2024-04-04 | CT_ITS ---
EXAMINATION: CT CHEST WITHOUT CONTRAST CLINICAL INFORMATION: Altered mental status, weakness, falling, rales COMPARISON: CT chest 07/31/2023 CT abdomen and pelvis 02/28/2023 CT angiography of the chest abdomen and pelvis 02/06/2023 TECHNIQUE: Multidetector volumetric CT imaging of the chest was done. Axial MIP volume rendering provided. Sagittal and coronal reformatted images were obtained. This CT examination was performed using dose optimization techniques as appropriate, variously including the following: *Automated exposure control *Adjustment of mA and/or kV according to patient size (this includes techniques or standardized protocols for targeted exams where dose is matched to indication/reason for exam; i.e. extremities or head) *Use of iterative reconstruction technique DLP: 458 mGy-cm FINDINGS: INSOLE STIFFENER: There is mild cardiomegaly and degenerative changes in the spine with biconvex thoracolumbar scoliosis. LUNGS AND PLEURA: Emphysematous changes are present along with bronchial thickening. There is scarring/atelectasis at the left lung base. Some small micronodules are seen (see saved clinton images). For example, a 3 mm right middle lobe nodule (30:221). At the time of the prior study, there was increased interstitial markings with bilateral pleural effusions and much more significant lower lobe atelectasis consistent with interstitial edema which has subsequently cleared. No pleural effusions are seen at this time. MEDIASTINUM: There is cardiomegaly. 2.5 cm left thyroid nodule unchanged. The main pulmonary artery remains dilated at about 4 cm. No pericardial effusion. No mediastinal lymphadenopathy. CORONARY ARTERY CALCIFICATION: Mild AXILLA: No lymphadenopathy. UPPER ABDOMEN: Again noted are polycystic kidneys similar to prior studies. No imaging follow-up needed. OSSEOUS STRUCTURES: Degenerative changes in the spine with biconvex thoracolumbar scoliosis. There are old/subacute fractures involving the ninth and 10th posterior right ribs that were not present on the 07/31/[address]/CT chest wo IV con IMPRESSION: 1. No acute intrathoracic disease. 2. Incidental note made of emphysema, dilated main pulmonary artery and polycystic kidneys. 3. New right sided rib fractures which appear subacute or old but new since 07/31/2023. 4. Incidentally noted 2.5 cm left thyroid nodule and benign pulmonary micronodules. Fleischner guidelines were followed. Electronically signed by: Mahesh Whitmore MD 04/04/2024 07:39 PM EDT RP
--- NOTE | ~2024-04-04 | CT_ITS ---
EXAM: CT HEAD WITHOUT CONTRAST CT CERVICAL SPINE INDICATION: AMS, weakness, falls TECHNIQUE: A noncontrast CT scan was performed from the skull base to the vertex. A noncontrast CT scan of the cervical spine was performed from the base of the skull through T1 at 2.5 mm and 0.625 mm collimation. Coronal and sagittal reformats were obtained at the acquisition workstation. This CT examination was performed using dose optimization techniques as appropriate, variously including the following: * Automated exposure control * Adjustment of mA and/or kV according to patient size (this includes techniques or standardized protocols for targeted exams where dose is matched to indication/reason for exam; i.e. extremities or head) * Use of iterative reconstruction technique Dose length product is 2481 mGy-cm. COMPARISON: CT head and cervical spine 07/31/2023 FINDINGS: Head: The inferior portion of the posterior fossa/cerebellum is not included in the [id number]. In the imaged portion of the brain, there is no evidence of acute intracranial hemorrhage or edematous territorial infarction. There is foci of increased attenuation in the subcortical region of the bilateral frontal lobes, which is suspected to be artifactual, but limits evaluation for hemorrhage. Mild cerebral atrophy.. Chronic white matter small vessel ischemic changes. No abnormal extra-axial fluid collections are identified. No acute calvarial fracture. Visualized portions of the paranasal sinuses and mastoid air cells are well-aerated. Cervical Spine: The atlantooccipital and atlantoaxial articulations remain well aligned. Straightening of the normal cervical lordosis. Stable grade 1 anterolisthesis of C4 on C5. No evidence of acute fracture. Multilevel disc degenerative changes, more prominent changes of severe C5-6 disc degeneration. Multilevel facet degeneration. The bony canal is maintained. No prevertebral soft tissue swelling. Lung apices are clear. CT/CT head/brain wo IV con IMPRESSION: 1. The inferior aspect of the posterior fossa/cerebellum is not included in the [id number]. In addition, there is also increased attenuation in the subcortical region of bilateral frontal lobes, which is suspected artifactual. Consider repeat CT for further evaluation as clinically indicated. 2. The remainder the image head, no intracranial hemorrhage or edematous cerebral infarction is seen. 3. No CT evidence of acute cervical spine fracture. 4. Cervical spondylosis. Electronically signed by: Pb Ashley MD 04/04/2024 06:50 PM EDT RP
[2024-04-04 16:07] VITALS: BP 138/54; BP 180/74; PULSE 75; PULSE 82; RESP 18; TEMP 37.8; O2SAT 90; O2SAT 99; BMI 25.1
[2024-04-04 16:13] VITALS: BP 142/79; PULSE 77; RESP 18; TEMP 37.6; O2SAT 99
--- NOTE | 2024-04-04 16:15 | ECG_ITS ---
Test Reason : weakness Blood Pressure : / mmHG Vent. Rate : 071 BPM Atrial Rate : 071 BPM P-R Int : 180 ms QRS Dur : 096 ms QT Int : 396 ms P-R-T Axes : 053 -01 079 degrees QTc Int : 430 ms Normal sinus rhythm Septal infarct , age undetermined Nonspecific ST and T wave abnormality Abnormal ECG When compared with ECG of 31-JUL-2023 11:00, T wave inversion no longer evident in Lateral leads QT has shortened Referred By: Keke Rutherford Electronically Signed By:JONNY CARDENAS
--- NOTE | 2024-04-04 16:21 | ED_ITS ---
HPI - General Adult General Chief complaint: Weakness Stated complaint: WEAKNESS,FROM DIALYSIS/COMPLETE,DIFF AMB PER EMS Time Seen by Provider: 04/04/24 15:56 Source: patient and EMS Mode of arrival: EMS Limitations: altered mental status History of Present Illness HPI narrative: 74-year-old male presenting to emergency department via EMS coming from dialysis today. Reportedly completed his treatment. He was feeling weak and dizzy and thus transferred to emergency department. He is a very poor historian. There have been reports of increased falls lately but he is unable to tell me any history in regards to this. He is oriented only to self, disoriented to place time and event. He has an audibly congested cough when asked whether he is experiencing any pain he says in his elbows. Related Data Home Medications ?Medication ?Instructions ?Recorded ?Confirmed ascorbic acid (vitamin C) 500 mg 500 mg PO DAILY 02/28/23 04/04/24 tablet clonazepam 1 mg tablet 1 mg PO TID 02/28/23 04/04/24 cyanocobalamin (vitamin B-12) 1,000 mcg PO DAILY 02/28/23 04/04/24 1,000 mcg tablet furosemide 80 mg tablet 80 mg PO SUTUTHSA 02/28/23 12/20/23 lisinopril 20 mg tablet 20 mg PO DAILY 02/28/23 04/04/24 oxcarbazepine 600 mg tablet 600 mg PO BID 02/28/23 04/04/24 prochlorperazine maleate 5 mg 5 mg PO BID 02/28/23 04/04/24 tablet sodium polystyrene sulfonate 15 g PO SUTUTHSA 02/28/23 04/04/24 albuterol sulfate 90 mcg/actuation 2 puff inhalation Q6H PRN 08/01/23 04/04/24 aerosol inhaler (Ventolin HFA) Shortness Of Breath Or Wheezing ergocalciferol (vitamin D2) 1,250 1,250 mcg PO Q30D 08/01/23 04/04/24 mcg (50,000 unit) capsule vitamin B complex 1 tab PO DAILY 08/01/23 04/04/24 lamotrigine 100 mg tablet 100 mg PO DAILY 04/04/24 04/04/24 (Lamictal) meclizine 25 mg tablet 25 mg PO BID PRN dizziness 04/04/24 04/04/24 Previous Rx's ?Medication ?Instructions ?Recorded metoprolol succinate 25 mg 25 mg PO DAILY 90 days #90 tabs 03/31/24 tablet,extended release 24 hr Allergies Allergy/AdvReac Type Severity Reaction Status Date / Time bupropion [From WELLBUTRIN] AdvReac Unknown CONSTIPATIO Verified 04/04/24 16:11 N NSAIDS (Non-Steroidal AdvReac Unknown RENAL Verified 04/04/24 16:11 Anti-Inflamma [NSAIDS (NON-STEROIDAL ANTI-INFLAMMA] [id number] Reductase AdvReac Unknown UNK Verified 04/04/24 16:11 Inhibitor [[id number] REDUCTASE INHIBITOR] Review of Systems 2 Review of Systems: Yes Unobtainable due to mental status PMFSH Past Medical History Attestation statement: The following information was validated with the patient. Source: old records reviewed Medical History Anemia ESRD (end stage renal disease) ESRD (end stage renal disease) on dialysis CKD (chronic kidney disease) Hypoxia Atrial flutter Nicotine dependence, cigarettes, uncomplicated AV fistula Essential hypertension Mood disorder Effusion, pericardium Pleural effusion, left Chronic kidney 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 Surgical History History of colonoscopy History of hernia repair History of parathyroidectomy Social History Social History Household Members: None Housing: Apartment Do you presently have visiting nurse or other home services: Yes (Housekeeping services) Alcohol intake: former Comment: PT REFUSING Patient Tobacco Use Status: Tobacco use Unknown Tobacco use type: Cigarette Cigarette Packs Per Day: 0.5 Cigarettes Per Day: 10.0 Years Smoked: 60 +/- Smoked in Last 30 Days: Yes e-Cigarette/Vaping Use: Currently Using Second Hand Smoke Exposure: Yes Use of substances other than those prescribed or required for medical reasons: No Advance Directives: Yes Advance Directives on File: Yes Advance Directives Date on File: 03/01/23 Do you have a plan to hurt others: No Plan service: No Physical Exam ED Vital Signs: Vital Signs - 24 hr 04/04/24 16:07 04/04/24 16:13 04/04/24 21:40 Temperature 100.1 F 99.7 F 100.9 F H Pulse Rate 75 77 71 Respiratory Rate 18 18 18 Blood Pressure 138/54 L 142/79 H 134/58 L Pulse Oximetry 99 99 95 Oxygen Delivery Method Room Air Room Air Room Air BMI result Body Mass Index 25.1 Appearance: Alert.?Oriented to person, disoriented to place time and event No acute distress.?Normal affect. Eyes: Pupils equal, round and reactive to light.? ENT: Pharynx normal.?? Neck: Normal inspection.? Neck supple.?? CVS: Heart sounds normal. Normal heart rate and rhythm.? Pulses normal.?? Respiratory: No respiratory distress.? Lung sounds with rales at the bilateral bases left worse than right Abdomen: Soft and non-tender. Normoactive bowel sounds. Skin: Skin warm and dry.? Normal skin color.? Extremities: No lower extremity edema.? No calf ttp. Right foot is slightly cooler to touch than left but 2+ DP/PT pulse bilaterally. No wounds or lesions. Full range of motion to bilateral elbows? Neuro: Moves all extremities spontaneously. Sensation intact bilaterally. No focal neuro deficits. Course Reevaluation(s) Reevaluation #1: Patient is noted to be COVID-19 positive, concern for viral COVID pneumonia as etiology for encephalopathy. No leukocytosis, no lactic acidosis, not meeting sepsis criteria at this time. Has a normocytic anemia, no thrombocytopenia. No electrolyte derangement. BNP 1063, he was dialyzed prior to arrival, no acute respiratory distress, will monitor respiratory status closely, if necessary consider BiPAP. CT imaging pending. Time: 18:06 Reevaluation #2: CT chest without acute pathology, incidental emphysema, right-sided 9th and 10th rib fractures appearing subacute or old but not seen on prior imaging 07/31/2023. I called and spoke with patient's primary contact; his former spouse Lenora sevilla with his healthcare proxy. She states that he has been bit more confused over the past 2 days. She states that 2 days ago on Tuesday he had a fall at home in the morning, he ultimately drove himself to dialysis and apparently fell again outside of dialysis. She states he has not had any evaluation after these falls. She also states that he has been experiencing dizziness for the past 4-8 weeks, his retail aide started him on ? Dramamine for dizziness without much improvement and was ultimately stopped as it was helping. He remains alert oriented to person at this time. Is unable to tell me he got here today. Feel it appropriate for hospital admission for acute encephalopathy in the setting of COVID-19 infection Time: 19:47 Medications Administered Generic Name Dose Route Start Last Admin Trade Name Freq PRN Reason Stop Dose Admin Clonazepam 1 mg 04/04/24 22:50 04/04/24 23:57 Clonazepam 1 Mg Tablet PO 1 mg TID GERMAIN Administration Heparin Sodium (Porcine) 5,000 unit 04/04/24 22:45 04/04/24 23:57 Heparin Sodium,Porcine 5,000 Unit/Ml Vial SUBCUT 5,000 unit Q12H GERMAIN Administration Oxcarbazepine 600 mg 04/04/24 22:50 04/04/24 23:57 Oxcarbazepine 300 Mg Tablet PO 600 mg BID GERMAIN Administration Prochlorperazine Maleate 5 mg 04/04/24 23:00 04/04/24 23:57 Prochlorperazine Maleate 5 Mg Tablet PO Not Given BID GERMAIN Sodium Chloride 3 ml 04/05/24 00:00 04/05/24 01:50 0.9 % Sodium Chloride Flush 3 Ml Syringe IVFLUSH Not Given QSHIFT GERMAIN Discontinued Medications Generic Name Dose Route Start Last Admin Trade Name Freq PRN Reason Stop Dose Admin Oxycodone HCl 2.5 mg 04/05/24 00:07 04/05/24 01:48 Oxycodone Hcl Immed Release 5 Mg Tablet PO 04/05/24 00:08 2.5 mg ONCE ONE Administration Medical Decision Making Medical Decision Making [facility] [place] Narrative: Patient is a 74-year-old male with past medical history of ESRD on hemodialysis Tuesday/Tuesday/Tuesday, hypertension, paroxysmal atrial flutter, history of pericardial effusion, mood disorder presenting to the emergency department from dialysis center with weakness prior reports of dizziness and increased falls recently. It is difficult to obtain much history from patient he is only oriented to self, unable to obtain a full review of systems due to AMS. He follows commands for neurological assessment, no focal deficits. He has not audibly congestive cough, rales to the bilateral lower lobes worse on the left. Will obtain CT head/cervical spine secondary to altered mental status and report of recent falls to exclude ICH, SDH, fracture, subluxation, CT chest to evaluate for consolidation, infiltrate, pleural effusion, rib fracture, CBC to evaluate for leukocytosis/ anemia, CMP/ ammonia and lipase to evaluate for abnormal electrolytes /abnormal renal function/ abnormal hepatic/biliary function, EKG and troponin to evaluate for ischemia/ACS, viral serologies, BNP for CHF exacerbation, and Urinalysis. Of note patient endorsed pain to bilateral elbows, on examination has full range of motion to bilateral elbows no obvious deformities erythema or warmth. Differential Diagnosis Differential Diagnoses: The differential diagnosis associated with the presentation includes (See narrative above) Admission/Observation Consideration of admission/observation: Escalation of care including admission/observation considered (See narrative above and course narrative for further detail) Consult Healthcare Provider Management of the patient was discussed with: Hospitalist (Accepting hospitalist Dr. Earle Willis) Lab Data MDM Lab Attestation statement: I reviewed the patient's lab results. (See course narrative) 04/04/24 16:51 04/04/24 16:51 Labs: Lab Results 04/04/24 04/04/24 04/04/24 Range/Units 16:50 16:51 16:58 WBC 4.8 (4.8-10.8) X10*3/uL RBC 3.83 L (4.60-5.80) X10*6/uL Hgb 12.5 L (14.0-18.0) g/dl Hct 37.0 L (42.0-52.0) % MCV 96.6 (80.0-98.0) fL MCH 32.6 (27.0-33.0) pg MCHC 33.8 (31.0-36.0) g/dl RDW 13.2 (11.0-16.0) % Plt Count 174 D (160-400) X10*3/uL MPV 8.9 L (9.4-12.4) fL Immature Gran % (Auto) 0.2 (0.0-0.4) % Neut % (Auto) 81.3 H (45-73) % Lymph % (Auto) 4.8 L (20-40) % Glenn % (Auto) 11.0 (2-11) % Eos % (Auto) 1.9 (0-4) % Baso % (Auto) 0.8 (0-2) % Lymph # (Auto) 0.2 L (1.2-4.9) X10*3/uL Glenn # (Auto) 0.5 (0.1-1.2) X10*3/uL Eos # (Auto) 0.1 (0.0-0.4) X10*3/uL Baso # (Auto) 0.0 (0.0-0.2) X10*3/uL Abs Immat Gran (auto) 0.01 (0.00-0.03) X10*3/uL Absolute Neuts (auto) 3.9 (2.0-8.3) x10*3/uL Absolute Nucleated RBC 0.000 (0.0-0.012) X10*3/uL Nucleated RBC % (auto) 0.0 (0.0-0.2) /100WBC PT 15.7 H D (11.1-13.3) SEC INR 1.3 H (0.9-1.1) VBG pH 7.54 H (7.32-7.43) VBG pCO2 45 mmHg VBG pO2 27 mmHg VBG HCO3 39 H (22-26) mmol/L VBG O2 Saturation 42.0 % VBG Base Excess 15.4 mmol/L Sodium 142 (135-145) mmol/L Potassium 3.9 (3.3-5.1) mmol/L Chloride 97 (96-108) mmol/L Carbon Dioxide 34 H (22-29) mmol/L Anion Gap 15 (12-20) BUN 12 (9-16) mg/dL Creatinine 3.64 H (0.5-1.4) mg/dL Estim Creat Clear Calc 18.6 Estimated GFR 16 Random Glucose 105 (60-115) mg/dL Lactic Acid 1.0 (0.5-2.0) mmol/L Calcium 10.2 D (8.4-10.2) mg/dL Total Bilirubin 0.5 (0.0-1.0) mg/dL AST 19 (5-37) U/L ALT 29 (0-40) U/L Alkaline Phosphatase 80 (39-117) U/L Ammonia 19 (13-55) umol/L Troponin I High Sens 32.9 D (<3.5-35.0) ng/L B-Natriuretic Peptide 1063 H (<100) pg/mL Total Protein 7.4 (6.5-8.0) g/dL Albumin 4.5 (3.5-5.0) g/dL Lipase 53 (8-78) U/L Ethyl Alcohol < 10 mg/dL Influenza Type A (PCR) NEGATIVE (Negative) Influenza Type B (PCR) NEGATIVE (Negative) RSV RNA Qual (PCR) NEGATIVE (Negative) SARS-CoV-2 RNA (RT-PCR) POSITIVE A (Negative) Independent Interpretation I performed an independent interpretation of an: EKG Interpretation: Rate: 71 Rhythm:? Normal sinus rhythm Cody:? Normal Normal P waves.? Normal JOSEP.?? Normal QRS complex.?? ST T wave :??No ST elevation, qTC:430? The study has been interpreted contemporaneously by me. Radiology Impression Discussion of test interpretation with radiology: I have reviewed the radiologist's reading. Radiologist Impression: CT/CT head/brain wo IV con IMPRESSION: 1. The inferior aspect of the posterior fossa/cerebellum is not included in the [id number]. In addition, there is also increased attenuation in the subcortical region of bilateral frontal lobes, which is suspected artifactual. Consider repeat CT for further evaluation as clinically indicated. 2. The remainder the image head, no intracranial hemorrhage or edematous cerebral infarction is seen. 3. No CT evidence of acute cervical spine fracture. 4. Cervical spondylosis. Independent Historian Clinical information obtained from an independent historian. History obtained from or confirmed by: EMS External Record Review External record reviewed: Inpatient record and Outpatient record Inpatient admission 07/31/2023-08/03/2023 acute hypoxic respiratory failure in the setting of volume overload secondary to ESRD, influenza a, acute encephalopathy with discharge mentation alert and oriented x2 disoriented to place and situation-was discharged to short-term rehab Discharge Plan Discharge Clinical Impression: COVID-19, Acute encephalopathy Patient Disposition: Admitted As Inpatient
[2024-04-04 17:02] LABS: MANUAL DIFF FLAG NO
[2024-04-04 17:04] LABS: VBG Base Excess 15.4 mmol/L; VBG HCO3 39 mmol/L (22-26); VBG pCO2 45 mmHg; VBG pH 7.54 (7.32-7.43); VBG pO2 27 mmHg
[2024-04-04 17:04] LABS: Basophils Percent Auto 0.8 % (0-2); Eosinophils Absolute Auto 0.1 X10*3/uL (0.0-0.4); Eosinophils Percent Auto 1.9 % (0-4); Hemoglobin 12.5 g/dl (14.0-18.0); Imm Gran Abs Auto 0.01 X10*3/uL (0.00-0.03); Imm Gran Pct Auto 0.2 % (0.0-0.4); Lymphocytes Absolute Auto 0.2 X10*3/uL (1.2-4.9); Lymphocytes Percent Auto 4.8 % (20-40); Mean Corpuscular HGB Conc 33.8 g/dl (31.0-36.0); Mean Corpuscular Hemoglobin 32.6 pg (27.0-33.0); Mean Corpuscular Volume 96.6 fL (80.0-98.0); Mean Platelet Volume 8.9 fL (9.4-12.4); Monocytes Absolute Auto 0.5 X10*3/uL (0.1-1.2); Neutrophils Absolute Auto 3.9 x10*3/uL (2.0-8.3); Neutrophils Percent Auto 81.3 % (45-73); Platelet Count 174 X10*3/uL (160-400); Red Blood Count 3.83 X10*6/uL (4.60-5.80); Red Cell Distribution Width 13.2 % (11.0-16.0); Venous Blood Gas Refer to POC result; White Blood Count 4.8 X10*3/uL (4.8-10.8)
[2024-04-04 17:07] LABS: Ammonia 19 umol/L (13-55)
[2024-04-04 17:13] LABS: INTERNATIONAL NORM RATIO 1.3 (0.9-1.1); Prothrombin Time 15.7 SEC (11.1-13.3)
[2024-04-04 17:23] LABS: Alanine Aminotransferase 29 U/L (0-40); Albumin Level 4.5 g/dL (3.5-5.0); Alkaline Phosphatase 80 U/L (39-117); Anion Gap 15 (12-20); Aspartate Amino Transferase 19 U/L (5-37); Bilirubin Total 0.5 mg/dL (0.0-1.0); Blood Urea Nitrogen 12 mg/dL (9-16); Calcium 10.2 mg/dL (8.4-10.2); Carbon Dioxide 34 mmol/L (22-29); Chloride 97 mmol/L (96-108); Creatinine Clr Calc Pharmacy 18.6; Estimated Glomerular Filt Rate 16; Ethanol < 10 mg/dL; Glucose Random 105 mg/dL (60-115); Lipase 53 U/L (8-78); Potassium 3.9 mmol/L (3.3-5.1); Sodium 142 mmol/L (135-145); Total Protein 7.4 g/dL (6.5-8.0)
[2024-04-04 17:27] LABS: B Type Natriuretic Peptide 1063 pg/mL (<100)
[2024-04-04 17:29] LABS: Troponin-I High Sensitivity 32.9 ng/L (<3.5-35.0)
[2024-04-04 17:54] LABS: Influenza A PCR NEGATIVE (Negative); Influenza B PCR NEGATIVE (Negative); Resp Syncy Virus RNA Qual PCR NEGATIVE (Negative); SARS COV2 PCR INHOUSE POSITIVE (Negative)
--- NOTE | 2024-04-04 20:30 | P.HPHOSP_ITS ---
History of Present Illness Date of Service: 04/04/24 Attending physician on admission: Dean Willis Chief Complaint: Confusion, dizziness Pt is a 74-year-old male with a PMH significant for?ESRD on HD Tue/Tue/Tue, HTN, paroxysmal a flutter, hx of pericardial effusion, and mood disorder who presents to the ED from dialysis for evaluation of weakness, dizziness, and difficulty ambulating. Patient is a noted poor and reluctant historian. Initially tells this interviewer to ?go away? when approached in his room. Eventually reports felt lightheaded, nauseous, and generally unwell after completing dialysis today. No vomiting or abdominal pain. Patient also complains of vague cough and difficulty breathing, but ?can't remember? when symptoms began. Patient states had increased weakness and recent falls at home, including one either yesterday or the day before yesterday. Patient is otherwise unable/unwilling to provide any further meaningful HPI. In triage and initially in ED was noted to be encephalopathic, believing it to be 1950 and not answering questions appropriately. Patient has had similar presentation to the hospital in the past. ED clinician contacted patient's previous and HCP reports has had increased confusion over the past 2 days, recent fall 2 days prior on Tuesday, and apparently another fall outside of dialysis today. Patient has not sought evaluation for these incidents. Has also been experiencing lightheadedness and dizziness for the past 1-2 months and has been seen by Nephrology for medication adjustment. In the ED pt with low-grade fever of 100.9, and soft BP as low as 134/58. No hypoxia and patient is satting at 95-99% on RA. Labs were significant for H&H of 12.5/37.0, bicarb 34, creatinine 3.68, troponin 32.9, and testing positive for COVID. No leukocytosis. No significant electrolyte abnormalities. Hepatic function WNL. VBG with pH 7.54 and bicarb 39, similar to prior. CT of head showed increased attenuation in subcortical region of bilateral frontal lobes, likely artifactual. Otherwise found no intracranial hemorrhage or edematous cerebral infarction. CT of cervical spine found cervical spondylolysis, but no evidence of acute fracture. CT of chest negative for acute intrathoracic disease, but shows emphysematous changes, dilated main pulmonary artery, and polycystic kidneys, as well as old/subacute fractures of 9th and 10th posterior right ribs and 2.5cm thyroid nodule. EKG demonstrated normal sinus rhythm without evidence of significant ST elevations or depressions. Pt will be admitted to the hospital for treatment and further evaluation of acute metabolic encephalopathy in the setting of acute COVID infection. Review of Systems 2 Review of Systems: Lightheadedness, dizziness Nausea, no vomiting Weakness with recent falls at home Cough, shortness of breath Denies chest pain/pressure, palpitations No fever, chills, abdominal pain PMFSH Medical History Anemia ESRD (end stage renal disease) ESRD (end stage renal disease) on dialysis CKD (chronic kidney disease) Hypoxia Atrial flutter Nicotine dependence, cigarettes, uncomplicated AV fistula Essential hypertension Mood disorder Effusion, pericardium Pleural effusion, left Chronic kidney 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 Surgical History History of colonoscopy History of hernia repair History of parathyroidectomy Social History Household Members: None Housing: Apartment Do you presently have visiting nurse or other home services: Yes (Housekeeping services) Alcohol intake: former Comment: PT REFUSING Patient Tobacco Use Status: Tobacco use Unknown Tobacco use type: Cigarette Cigarette Packs Per Day: 0.5 Cigarettes Per Day: 10.0 Years Smoked: 60 +/- Smoked in Last 30 Days: Yes e-Cigarette/Vaping Use: Currently Using Second Hand Smoke Exposure: Yes Use of substances other than those prescribed or required for medical reasons: No Advance Directives: Yes Advance Directives on File: Yes Advance Directives Date on File: 03/01/23 Do you have a plan to hurt others: No Plan service: No Meds Allergies Allergy/AdvReac Type Severity Reaction Status Date / Time bupropion [From WELLBUTRIN] AdvReac Unknown CONSTIPATIO Verified 04/04/24 16:11 N NSAIDS (Non-Steroidal AdvReac Unknown RENAL Verified 04/04/24 16:11 Anti-Inflamma [NSAIDS (NON-STEROIDAL ANTI-INFLAMMA] Rtyjckl-CCJ-ElN Reductase AdvReac Unknown UNK Verified 04/04/24 16:11 Inhibitor [[id number] REDUCTASE INHIBITOR] Home Medications ?Medication ?Instructions ?Recorded ?Confirmed ?Last Taken ?Type ascorbic acid (vitamin C) 500 mg 500 mg PO DAILY 02/28/23 04/04/24 Unknown History tablet clonazepam 1 mg tablet 1 mg PO TID 02/28/23 04/04/24 Unknown History cyanocobalamin (vitamin B-12) 1,000 mcg PO DAILY 02/28/23 04/04/24 Unknown History 1,000 mcg tablet furosemide 80 mg tablet 80 mg PO [facility] 02/28/23 12/20/23 Unknown History lisinopril 20 mg tablet 20 mg PO DAILY 02/28/23 04/04/24 Unknown History oxcarbazepine 600 mg tablet 600 mg PO BID 02/28/23 04/04/24 Unknown History prochlorperazine maleate 5 mg 5 mg PO BID 02/28/23 04/04/24 Unknown History tablet sodium poly[facility]rene sulfonate [facility] 02/28/23 04/04/24 Unknown History albuterol sulfate 90 mcg/actuation 2 puff inhalation Q6H PRN 08/01/23 04/04/24 Unknown History aerosol inhaler (Ventolin HFA) Shortness Of Breath Or Wheezing ergocalciferol (vitamin D2) 1,250 1,250 mcg PO Q30D 08/01/23 04/04/24 Unknown History mcg (50,000 unit) capsule vitamin B complex 1 tab PO DAILY 08/01/23 04/04/24 Unknown History lamotrigine 100 mg tablet 100 mg PO DAILY 04/04/24 04/04/24 Unknown History (Lamictal) meclizine 25 mg tablet 25 mg PO BID PRN dizziness 04/04/24 04/04/24 Unknown History Physical Exam 2 Vital Signs and Narrative: Vital Signs: Last Vital Signs Temp 99.7 F 04/04/24 16:13 Pulse 77 04/04/24 16:13 Resp 18 04/04/24 16:13 BP 142/79 H 04/04/24 16:13 Pulse Ox 99 04/04/24 16:13 O2 Del Method Room Air 04/04/24 16:13 BMI result Body Mass Index 25.1 General: AOx2, no acute distress Resp: Diffuse coarse lung sounds bilaterally CVS: S1, S2, RRR GI: +BS, NT, no distention Skin: Warm, dry Neuro: Cranial nerves II-XII grossly intact bilaterally. Motor grossly intact bilaterally Extremities: No edema Results Labs 04/04/24 16:51 04/04/24 16:51 Labs: Laboratory Results - last 24 hr 04/04/24 04/04/24 04/04/24 16:50 16:51 16:58 MCV 96.6 MCH 32.6 MCHC 33.8 RDW 13.2 Plt Count 174 D MPV 8.9 L Immature Gran % (Auto) 0.2 Neut % (Auto) 81.3 H Lymph % (Auto) 4.8 L Stark % (Auto) 11.0 Eos % (Auto) 1.9 Baso % (Auto) 0.8 Lymph # (Auto) 0.2 L Stark # (Auto) 0.5 Eos # (Auto) 0.1 Baso # (Auto) 0.0 Abs Immat Gran (auto) 0.01 Absolute Neuts (auto) 3.9 Absolute Nucleated RBC 0.000 Nucleated RBC % (auto) 0.0 PT 15.7 H D INR 1.3 H VBG pH 7.54 H VBG pCO2 45 VBG pO2 27 VBG HCO3 39 H VBG O2 Saturation 42.0 VBG Base Excess 15.4 Anion Gap 15 Estim Creat Clear Calc 18.6 Estimated GFR 16 Random Glucose 105 Lactic Acid 1.0 Calcium 10.2 D Total Bilirubin 0.5 AST 19 ALT 29 Alkaline Phosphatase 80 Ammonia 19 Troponin I High Sens 32.9 D B-Natriuretic Peptide 1063 H Total Protein 7.4 Albumin 4.5 Lipase 53 Ethyl Alcohol < 10 Influenza Type A (PCR) NEGATIVE Influenza Type B (PCR) NEGATIVE RSV RNA Qual (PCR) NEGATIVE SARS-CoV-2 RNA (RT-PCR) POSITIVE A Imaging Radiologist's Impressions: Impressions Cervical Spine CT 04/04/24 17:09 IMPRESSION: 1. The inferior aspect of the posterior fossa/cerebellum is not included in the [id number]. In addition, there is also increased attenuation in the subcortical region of bilateral frontal lobes, which is suspected artifactual. Consider repeat CT for further evaluation as clinically indicated. 2. The remainder the image head, no intracranial hemorrhage or edematous cerebral infarction is seen. 3. No CT evidence of acute cervical spine fracture. 4. Cervical spondylosis. Electronically signed by: Pb Ashley MD 04/04/2024 06:50 PM EDT RP Chest CT 04/04/24 17:09 IMPRESSION: 1. No acute intrathoracic disease. 2. Incidental note made of emphysema, dilated main pulmonary artery and polycystic kidneys. 3. New right sided rib fractures which appear subacute or old but new since 07/31/2023. 4. Incidentally noted 2.5 cm left thyroid nodule and benign pulmonary micronodules. Fleischner guidelines were followed. Electronically signed by: Mahesh Whitmore MD 04/04/2024 07:39 PM EDT RP Head CT 04/04/24 17:09 IMPRESSION: 1. The inferior aspect of the posterior fossa/cerebellum is not included in the [id number]. In addition, there is also increased attenuation in the subcortical region of bilateral frontal lobes, which is suspected artifactual. Consider repeat CT for further evaluation as clinically indicated. 2. The remainder the image head, no intracranial hemorrhage or edematous cerebral infarction is seen. 3. No CT evidence of acute cervical spine fracture. 4. Cervical spondylosis. Electronically signed by: Pb Ashley MD 04/04/2024 06:50 PM EDT RP Assessment and Plan (1) Acute encephalopathy: Status: Acute (2) COVID-19: Status: Acute Plan Pt is a 74-year-old male with a PMH significant for?ESRD on HD Mon/Tue/Tue, HTN, paroxysmal a flutter, hx of pericardial effusion, and mood disorder who presents to the ED from dialysis for evaluation of weakness, dizziness, and difficulty ambulating. Pt will be admitted to the hospital for treatment and further evaluation of acute metabolic encephalopathy and generalized weakness in the setting of acute COVID infection. Acute encephalopathy Patient with increased confusion from baseline times 2-3 days Likely in the setting of acute COVID infection Patient not hypoxic, not a candidate for remdesivir Will treat symptomatically with DuoNebs and guaifenesin p.r.n. Monitor mental status ESRD on HD M/W/F Last dialyzed on today, 04/04/2024 Nephrology consult Monitor on telemetry Frequent falls at home PT evaluation HTN BP slightly soft, hold lisinopril and metoprolol for now Resume as warranted Anemia of chronic disease Stable, at baseline Mood disorder Continue home meds Full Code Attending:?Dr. Og DVT Prophylaxis: Heparin Pt will require a hospitalization of at least two nights for treatment of?acute metabolic encephalopathy and generalized weakness with recent falls at home in the setting of acute COVID infection. Given that patient is not back to baseline mentation, will need inpatient level of care for monitoring of mental status and PT evaluation for safe disposition home. Quality Stroke Does the patient have a stroke diagnosis?: No VTE Prior VTE?: No VTE Risk Level:: Medical - moderate - high VTE Device Contraindication: Treatment Not Indicated VTE Drug Contraindication: N/A - Med Ordered
[2024-04-04 21:40] VITALS: BP 134/58; PULSE 71; RESP 18; TEMP 38.3; O2SAT 95
--- NOTE | 2024-04-04 22:00 | PC.NURSE ---
Patient refused IV line placement.
--- NOTE | 2024-04-04 22:08 | PHA.MEDREC ---
Pharmacy Consult ? Medication Reconciliation Pharmacy has completed the medication reconciliation. Pt unable to recall medication history, med rec based on claim history. Unable to confirm if pt is still on lasix or trazodone
[2024-04-04 23:43] VITALS: BP 149/66; PULSE 67; RESP 18; TEMP 37.3; O2SAT 94
[2024-04-04] MEDS: Heparin Sodium,Porcine 5,000 UNIT/ML VIAL 5000 UNIT SUBCUT (23:57)
[2024-04-04] MEDS: OXcarbazepine 300 MG TABLET 600 MG PO (23:57)
[2024-04-04] MEDS: clonazePAM 1 MG TABLET PO (23:57)
[2024-04-05] MEDS: oxyCODONE HCl Immed Release 5 MG TABLET 2.5 MG PO ×3 (01:48→16:58)
[2024-04-05 04:45] VITALS: BP 126/55; PULSE 65; RESP 16; TEMP 37; O2SAT 96
[2024-04-05 04:55] LABS: Appearance Urine Clear; Color Urine Dark Yellow; Glucose Urine UA Negative (Negative); Leukocyte Esterase Urine Negative (Negative); Nitrite Urine Negative (Negative); PH >= 9.0 (5.0-9.0); UMIC TRIGGER UACC YES; Urine Blood Negative (Negative); Urine Ketones Negative (Negative); Urine Protein 100 (2+) mg/dL (Neg-Trace)
[2024-04-05 04:58] LABS: Bacteria Urine None Seen (None Seen); Hyaline Casts Urine 0-2 /LPF (0-2); RBC Urine 0-2 /HPF (0-2); Squamous Epithelial Cell Urine 0-2 /HPF (0-2); WBC Urine 0-5 /HPF (0-5)
--- NOTE | 2024-04-05 04:58 | PC.NURSE ---
Lab called critical creatinine level 4.90. Dr. Og notified.
[2024-04-05 05:01] LABS: Anion Gap 15 (12-20); Blood Urea Nitrogen 22 mg/dL (9-16); Calcium 9.6 mg/dL (8.4-10.2); Carbon Dioxide 30 mmol/L (22-29); Chloride 97 mmol/L (96-108); Creatinine Clr Calc Pharmacy 13.8; Estimated Glomerular Filt Rate 12; Glucose Random 108 mg/dL (60-115); Potassium 4.3 mmol/L (3.3-5.1); Sodium 138 mmol/L (135-145)
[2024-04-05 05:05] LABS: Amphetamine Screen Urine Not Detected (Not Detect); Barbiturates, Urine Not Detected (Not Detect); Benzodiazepines Screen Urine Not Detected (Not Detect); Buprenorphine Scr Not Detected (Not Detect); Cannabinoid Screen Urine Not Detected (Not Detect); Cocaine Screen Urine Not Detected (Not Detect); Fentanyl, urine Not Detected (Not Detect); Methadone Screen, Urine Not Detected (Not Detect); Opiate Screen Urine Not Detected (Not Detect); Oxycodone Screen Urine Not Detected (Not Detect); Phencyclidine Screen Urine Not Detected (Not Detect)
[2024-04-05] MEDS: Acetaminophen 325 MG TABLET 650 MG PO ×3 (05:16→19:47)
--- NOTE | 2024-04-05 06:01 | MHC.EDTECH ---
Pt took off monitor and refuses to allow staff to put back on. Reasons for monitor explained, pt still reuses. RN aware.
[2024-04-05 07:27] VITALS: BP 126/55; PULSE 65; O2SAT 96
[2024-04-05] MEDS: Ascorbic Acid 500 MG TABLET PO (08:09)
[2024-04-05] MEDS: clonazePAM 1 MG TABLET PO ×3 (08:09→19:48)
[2024-04-05] MEDS: lamoTRIgine 100 MG TABLET PO (08:09)
[2024-04-05] MEDS: OXcarbazepine 300 MG TABLET 600 MG PO ×2 (08:09→19:48)
[2024-04-05] MEDS: Multivitamin TABLET 1 TAB PO (08:09)
[2024-04-05] MEDS: Cyanocobalamin (Vitamin B-12) 1,000 MCG TABLET 1000 MCG PO (08:10)
[2024-04-05 08:19] VITALS: BP 137/61; PULSE 67; RESP 16; TEMP 37.1; O2SAT 96
--- NOTE | 2024-04-05 08:46 | MHC.EDTECH ---
Patient refused the bed alarm, rest in bed quietly and call perez within reach.
--- NOTE | 2024-04-05 09:37 | MHC.CM.PN ---
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 Patient lives alone in an apartment and uses a walker to assist with mobility. PT is recommending STR and [facility] is first choice(he has HD @ [facility]F);CM has initiated and will follow for dc planning. PCP is Dr. Gerald Davis.
[2024-04-05] MEDS: Prochlorperazine Maleate 5 MG TABLET PO ×2 (11:21→19:48)
[2024-04-05] MEDS: Sodium Polystyrene Sulfon/Sorb 15 GM/60 ML ORAL.SUSP PO (11:22)
--- NOTE | 2024-04-05 12:12 | PC.NURSE ---
patient refuses IV still at this time. MD estevez
[2024-04-05 12:20] VITALS: BP 133/65; PULSE 66; RESP 18; TEMP 37.2; O2SAT 96
--- NOTE | 2024-04-05 14:21 | PM.CNNEP ---
History of Present Illness Reason for Consult Consult date: 04/05/24 Chief Complaint Chief complaint: Covid encephalopathy History of Present Illness Narrative: 73/m with pmh of nonsustained ventricular tachycardia, av fistula, mood disorder, hypertension, atrial flutter, CKD on dialysis Tuesday, Tuesday, Tuesday, last session was Tuesday presented to the emergency department status post fall at home he felt lightheaded/dizzy, fell to the ground, h/o frequent falls at home. now diagnosed with covid PMFSH Past Medical History Medical History (Updated 04/05/24 @ 14:26 by Tez Thomason MD) ESRD (end stage renal disease) on dialysis Anemia ESRD (end stage renal disease) CKD (chronic kidney disease) Hypoxia Atrial flutter Nicotine dependence, cigarettes, uncomplicated AV fistula Essential hypertension Mood disorder Effusion, pericardium Pleural effusion, left Chronic kidney 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 Surgical History Surgical History History of colonoscopy History of hernia repair History of parathyroidectomy Social History Social History Household Members: None Housing: Condominium Do you presently have visiting nurse or other home services: Yes Alcohol intake: former Comment: PT REFUSING Patient Tobacco Use Status: Former Tobacco user Tobacco use type: Cigarette Cigarette Packs Per Day: 0.5 Cigarettes Per Day: 10.0 Years Smoked: 60 +/- e-Cigarette/Vaping Use: Currently Using Second Hand Smoke Exposure: Yes Advance Directives Date on File: 03/01/23 service: No Meds Allergies Allergy/AdvReac Type Severity Reaction Status Date / Time bupropion [From WELLBUTRIN] AdvReac Unknown CONSTIPATIO Verified 04/04/24 16:11 N NSAIDS (Non-Steroidal AdvReac Unknown RENAL Verified 04/04/24 16:11 Anti-Inflamma [NSAIDS (NON-STEROIDAL ANTI-INFLAMMA] [id number] Reductase AdvReac Unknown UNK Verified 04/04/24 16:11 Inhibitor [[id number] REDUCTASE INHIBITOR] Active Medications: Current Medications Acetaminophen (Acetaminophen 325 Mg Tablet) 650 mg PO Q6H PRN PRN Reason: Pain, Mild (Pain Scale 1-3), fever or headache Last Admin: 04/05/24 11:21 Dose: 650 mg Albuterol Sulfate (Albuterol Sulfate 90 Mcg 8 Gm Inhaler) 2 puff INHALE Q6H PRN PRN Reason: Shortness Of Breath Or Wheezing Albuterol/Ipratropium (Albuterol/Iprat 2.5/0.5mg 3 Ml Ampul.Neb) 3 ml INHALE RQ4H WHILE AWAKE PRN PRN Reason: Shortness of Breath/Wheezing Ascorbic Acid (Ascorbic Acid 500 Mg Tablet) 500 mg PO DAILY [facility] Last Admin: 04/05/24 08:09 Dose: 500 mg Calcium Carbonate (Calcium Carbonate 750 Mg Tab.Chew) 750 mg PO Q4H PRN PRN Reason: Heartburn Clonazepam (Clonazepam 1 Mg Tablet) 1 mg PO TID [facility] Last Admin: 04/05/24 08:09 Dose: 1 mg Cyanocobalamin (Cyanocobalamin (Vitamin B-12) 1,000 Mcg Tablet) 1,000 mcg PO DAILY [facility] Last Admin: 04/05/24 08:10 Dose: 1,000 mcg Ergocalciferol (Ergocalciferol (Vitamin D2) 1,250 Mcg Capsule) 1,250 mcg PO Q30D [facility] Guaifenesin/Dextromethorphan (Guaifenesin Dm 200/20/10 Ml 10 Ml Syrup) 10 ml PO Q6H PRN PRN Reason: Cough Heparin Sodium (Porcine) (Heparin Sodium,Porcine 5,000 Unit/Ml Vial) 5,000 unit SUBCUT Q12H [facility] Last Admin: 04/05/24 11:24 Dose: Not Given Lamotrigine (Lamotrigine 100 Mg Tablet) 100 mg PO DAILY [facility] Last Admin: 04/05/24 08:09 Dose: 100 mg Magnesium Hydroxide (Milk Of Magnesia 30 Ml Oral.Susp) 30 ml PO DAILY PRN PRN Reason: Constipation Meclizine HCl (Meclizine Hcl 25 Mg Tablet) 25 mg PO BID PRN PRN Reason: dizziness Melatonin (Melatonin 3 Mg Tablet) 6 mg PO BEDTIME PRN PRN Reason: Insomnia Multivitamins/Vitamin C (Multivitamin Tablet) 1 tab PO DAILY [facility] Last Admin: 04/05/24 08:09 Dose: 1 tab Ondansetron HCl (Ondansetron Hcl 4 Mg/2 Ml Vial) 4 mg IVPUSH Q8H PRN PRN Reason: Nausea and Vomiting Oxcarbazepine (Oxcarbazepine 300 Mg Tablet) 600 mg PO BID [facility] Last Admin: 04/05/24 08:09 Dose: 600 mg Oxycodone HCl (Oxycodone Hcl Immed Release 5 Mg Tablet) 2.5 mg PO Q6H PRN PRN Reason: ribcage pain Last Admin: 04/05/24 08:08 Dose: 2.5 mg Prochlorperazine Maleate (Prochlorperazine Maleate 5 Mg Tablet) 5 mg PO BID [facility] Last Admin: 04/05/24 11:21 Dose: 5 mg Sodium Chloride (0.9 % Sodium Chloride Flush 3 Ml Syringe) [facility] Last Admin: 04/05/24 08:10 Dose: Not Given Sodium Polystyrene Sulfonate (Sodium Polystyrene Sulfon/Sorb 15 Gm/60 Ml Oral.Susp) 15 gm PO [facility] Last Admin: 04/05/24 11:22 Dose: 15 gm Home Medications ?Medication ?Instructions ?Recorded ?Confirmed ?Last Taken ?Type ascorbic acid (vitamin C) 500 mg 500 mg PO DAILY 02/28/23 04/04/24 Unknown History tablet clonazepam 1 mg tablet 1 mg PO TID 02/28/23 04/04/24 Unknown History cyanocobalamin (vitamin B-12) 1,000 mcg PO DAILY 02/28/23 04/04/24 Unknown History 1,000 mcg tablet furosemide 80 mg tablet 80 mg PO [facility] 02/28/23 12/20/23 Unknown History lisinopril 20 mg tablet 20 mg PO DAILY 02/28/23 04/04/24 Unknown History oxcarbazepine 600 mg tablet 600 mg PO BID 02/28/23 04/04/24 Unknown History prochlorperazine maleate 5 mg 5 mg PO BID 02/28/23 04/04/24 Unknown History tablet sodium polystyrene sulfonate 15 g PO [facility] 02/28/23 04/04/24 Unknown History albuterol sulfate 90 mcg/actuation 2 puff inhalation Q6H PRN 08/01/23 04/04/24 Unknown History aerosol inhaler (Ventolin HFA) Shortness Of Breath Or Wheezing ergocalciferol (vitamin D2) 1,250 1,250 mcg PO Q30D 08/01/23 04/04/24 Unknown History mcg (50,000 unit) capsule vitamin B complex 1 tab PO DAILY 08/01/23 04/04/24 Unknown History lamotrigine 100 mg tablet 100 mg PO DAILY 04/04/24 04/04/24 Unknown History (Lamictal) meclizine 25 mg tablet 25 mg PO BID PRN dizziness 04/04/24 04/04/24 Unknown History Physical Exam Vital Signs: Last Vital Signs Temp 98.9 F 04/05/24 12:20 Pulse 66 04/05/24 12:20 Resp 18 04/05/24 12:20 BP 133/65 04/05/24 12:20 Pulse Ox 96 04/05/24 12:20 O2 Del Method Room Air 04/05/24 12:20 BMI result Body Mass Index 25.1 cvs: s1s2 Rs; cta ABd: soft lue avf Const General: no acute distress Orientation/consciousness: patient oriented x3 Resp Auscultation: clear to auscultation bilaterally and diminished lung sounds Cardio Jugular venous distension: no JVD Heart sounds: S1 normal heart sound present and S2 normal heart sound present Neuro General: patient oriented x3 Extrem General: No edema Results Lab Results 04/04/24 16:51 04/05/24 04:34 Lab results: Chemistry 04/04/24 04/05/24 16:51 04:34 Sodium 142 138 Potassium 3.9 4.3 Carbon Dioxide 34 H 30 H BUN 12 22 H Creatinine 3.64 H 4.90 H* Calcium 10.2 D 9.6 Hematology 04/04/24 16:51 WBC 4.8 Hgb 12.5 L Plt Count 174 D Urinalysis 04/05/24 04:49 Urine Color Dark Yellow Urine Appearance Clear Urine pH >= 9.0 Ur Specific [place] 1.010 Urine Protein 100 (2+) H Urine Glucose (UA) Negative Urine Ketones Negative Urine Blood Negative Urine Nitrite Negative Ur Leukocyte Esterase Negative Urine RBC 0-2 Urine WBC 0-5 Ur Squamous Epith Cells 0-2 Hyaline Casts 0-2 Assessment and Plan (1) ESRD (end stage renal disease) on dialysis: Status: Acute Plan usually has HD at [facility] - [address] Sweet presented with fall and acute hypoxic respiratory failure last hd was tuesday nephrogenic anemia REC HD [facility]achi optimize volume status renal diet phosphate binders no need for LC Procedures Date of Service Date of Service: 04/05/24
--- NOTE | 2024-04-05 14:44 | P.PNIM_ITS ---
Subjective Subjective Date of Service: 04/05/24 Interval History: Being followed for COVID encephalopathy. Feeling better this morning complaining of persistent mild weakness and dizziness, right-sided lower chest pain, no acute events overnight, denies shortness of breath, no chest pain, no nausea, no vomiting. Review of Systems All other system reviewed and are negative Physical Exam 2 Vital Signs: Vital Signs: Last Vital Signs Temp 98.9 F 04/05/24 12:20 Pulse 66 04/05/24 12:20 Resp 18 04/05/24 12:20 BP 133/65 04/05/24 12:20 Pulse Ox 96 04/05/24 12:20 O2 Del Method Room Air 04/05/24 12:20 BMI result Body Mass Index 25.1 Const: Other: General resting comfortably in no acute distress. Neck supple no JVD. CVS regular rate rhythm, Respiratory lungs clear to auscultation, no respiratory distress, no wheeze, no rhonchi. Gastrointestinal abdomen soft, non tender, bowel sounds audible, no guarding , no rigidity. Extremities no edema. Neuro non focal , speech clear. Skin no rash Psych appropriate affect Objective Data Active Medications Acetaminophen (Acetaminophen 325 Mg Tablet) 650 mg PO Q6H PRN PRN Reason: Pain, Mild (Pain Scale 1-3), fever or headache Last Admin: 04/05/24 11:21 Dose: 650 mg Documented By: MONICA Albuterol Sulfate (Albuterol Sulfate 90 Mcg 8 Gm Inhaler) 2 puff INHALE Q6H PRN PRN Reason: Shortness Of Breath Or Wheezing Albuterol/Ipratropium (Albuterol/Iprat 2.5/0.5mg 3 Ml Ampul.Neb) 3 ml INHALE RQ4H WHILE AWAKE PRN PRN Reason: Shortness of Breath/Wheezing Ascorbic Acid (Ascorbic Acid 500 Mg Tablet) 500 mg PO DAILY [facility] [place] Last Admin: 04/05/24 08:09 Dose: 500 mg Documented By: ANUSHA Calcium Carbonate (Calcium Carbonate 750 Mg Tab.Chew) 750 mg PO Q4H PRN PRN Reason: Heartburn Clonazepam (Clonazepam 1 Mg Tablet) 1 mg PO TID [facility] Last Admin: 04/05/24 14:31 Dose: 1 mg Documented By: ANUSHA Cyanocobalamin (Cyanocobalamin (Vitamin B-12) 1,000 Mcg Tablet) 1,000 mcg PO DAILY [facility] Last Admin: 04/05/24 08:10 Dose: 1,000 mcg Documented By: ANUSHA Ergocalciferol (Ergocalciferol (Vitamin D2) 1,250 Mcg Capsule) 1,250 mcg PO Q30D [facility] Guaifenesin/Dextromethorphan (Guaifenesin Dm 200/20/10 Ml 10 Ml Syrup) 10 ml PO Q6H PRN PRN Reason: Cough Heparin Sodium (Porcine) (Heparin Sodium,Porcine 5,000 Unit/Ml Vial) 5,000 unit SUBCUT Q12H [facility] [place] Last Admin: 04/05/24 11:24 Dose: Not Given Documented By: MONICA Non-Admin Reason: Patient Refused Lamotrigine (Lamotrigine 100 Mg Tablet) 100 mg PO DAILY [facility] [place] Last Admin: 04/05/24 08:09 Dose: 100 mg Documented By: ANUSHA Magnesium Hydroxide (Milk Of Magnesia 30 Ml Oral.Susp) 30 ml PO DAILY PRN PRN Reason: Constipation Meclizine HCl (Meclizine Hcl 25 Mg Tablet) 25 mg PO BID PRN PRN Reason: dizziness Melatonin (Melatonin 3 Mg Tablet) 6 mg PO BEDTIME PRN PRN Reason: Insomnia Multivitamins/Vitamin C (Multivitamin Tablet) 1 tab PO DAILY [facility] [place] Last Admin: 04/05/24 08:09 Dose: 1 tab Documented By: ANUSHA Ondansetron HCl (Ondansetron Hcl 4 Mg/2 Ml Vial) 4 mg IVPUSH Q8H PRN PRN Reason: Nausea and Vomiting Oxcarbazepine (Oxcarbazepine 300 Mg Tablet) 600 mg PO BID [facility] Last Admin: 04/05/24 08:09 Dose: 600 mg Documented By: ANUSHA Oxycodone HCl (Oxycodone Hcl Immed Release 5 Mg Tablet) 2.5 mg PO Q6H PRN PRN Reason: ribcage pain Last Admin: 04/05/24 08:08 Dose: 2.5 mg Documented By: ANUSHA Prochlorperazine Maleate (Prochlorperazine Maleate 5 Mg Tablet) 5 mg PO BID [facility] [place] Last Admin: 04/05/24 11:21 Dose: 5 mg Documented By: MONICA Sodium Chloride (0.9 % Sodium Chloride Flush 3 Ml Syringe) 3 ml IVFLUSH QSHIFT [facility] [place] Last Admin: 04/05/24 08:10 Dose: Not Given Documented By: ANUSHA Non-Admin Reason: See Note Sodium Polystyrene Sulfonate (Sodium Polystyrene Sulfon/Sorb 15 Gm/60 Ml Oral.Susp) 15 gm PO SUTUTHSA [facility] [place] Last Admin: 04/05/24 11:22 Dose: 15 gm Documented By: MONICA Labs 04/04/24 16:51 04/05/24 04:34 Labs: Laboratory Results - last 24 hr 04/04/24 04/04/24 04/04/24 16:50 16:51 16:58 MCV 96.6 MCH 32.6 MCHC 33.8 RDW 13.2 Plt Count 174 D MPV 8.9 L Immature Gran % (Auto) 0.2 Neut % (Auto) 81.3 H Lymph % (Auto) 4.8 L [place] % (Auto) 11.0 Eos % (Auto) 1.9 Baso % (Auto) 0.8 Lymph # (Auto) 0.2 L [place] # (Auto) 0.5 Eos # (Auto) 0.1 Baso # (Auto) 0.0 Abs Immat Gran (auto) 0.01 Absolute Neuts (auto) 3.9 Absolute Nucleated RBC 0.000 Nucleated RBC % (auto) 0.0 PT 15.7 H D INR 1.3 H VBG pH 7.54 H VBG pCO2 45 VBG pO2 27 VBG HCO3 39 H VBG O2 Saturation 42.0 VBG Base Excess 15.4 Anion Gap 15 Estim Creat Clear Calc 18.6 Estimated GFR 16 Random Glucose 105 Lactic Acid 1.0 Calcium 10.2 D Total Bilirubin 0.5 AST 19 ALT 29 Alkaline Phosphatase 80 Ammonia 19 Troponin I High Sens 32.9 D B-Natriuretic Peptide 1063 H Total Protein 7.4 Albumin 4.5 Lipase 53 Urine Color Urine Appearance Urine pH Ur Specific [place] Urine Protein Urine Glucose (UA) Urine Ketones Urine Blood Urine Nitrite Ur Leukocyte Esterase Urine RBC Urine WBC Ur Squamous Epith Cells Urine Bacteria Hyaline Casts Urine Opiates Screen Ur Buprenorphine Scrn Ur Oxycodone Screen Urine Methadone Screen Urine Fentanyl Screen Ur Barbiturates Screen Ur Phencyclidine Scrn Ur Amphetamines Screen U Benzodiazepines Scrn Urine Cocaine Screen U Marijuana (THC) Screen Ethyl Alcohol < 10 Influenza Type A (PCR) NEGATIVE Influenza Type B (PCR) NEGATIVE RSV RNA Qual (PCR) NEGATIVE SARS-CoV-2 RNA (RT-PCR) POSITIVE A 04/05/24 04/05/24 04:34 04:49 MCV MCH MCHC RDW Plt Count MPV Immature Gran % (Auto) Neut % (Auto) Lymph % (Auto) [place] % (Auto) Eos % (Auto) Baso % (Auto) Lymph # (Auto) [place] # (Auto) Eos # (Auto) Baso # (Auto) Abs Immat Gran (auto) Absolute Neuts (auto) Absolute Nucleated RBC Nucleated RBC % (auto) PT INR VBG pH VBG pCO2 VBG pO2 VBG HCO3 VBG O2 Saturation VBG Base Excess Anion Gap 15 Estim Creat Clear Calc 13.8 Estimated GFR 12 Random Glucose 108 Lactic Acid Calcium 9.6 Total Bilirubin AST ALT Alkaline Phosphatase Ammonia Troponin I High Sens B-Natriuretic Peptide Total Protein Albumin Lipase Urine Color Dark Yellow Urine Appearance Clear Urine pH >= 9.0 Ur Specific [place] 1.010 Urine Protein 100 (2+) H Urine Glucose (UA) Negative Urine Ketones Negative Urine Blood Negative Urine Nitrite Negative Ur Leukocyte Esterase Negative Urine RBC 0-2 Urine WBC 0-5 Ur Squamous Epith Cells 0-2 Urine Bacteria None Seen Hyaline Casts 0-2 Urine Opiates Screen Not Detected Ur Buprenorphine Scrn Not Detected Ur Oxycodone Screen Not Detected Urine Methadone Screen Not Detected Urine Fentanyl Screen Not Detected Ur Barbiturates Screen Not Detected Ur Phencyclidine Scrn Not Detected Ur Amphetamines Screen Not Detected U Benzodiazepines Scrn Not Detected Urine Cocaine Screen Not Detected U Marijuana (THC) Screen Not Detected Ethyl Alcohol Influenza Type A (PCR) Influenza Type B (PCR) RSV RNA Qual (PCR) SARS-CoV-2 RNA (RT-PCR) Assessment and Plan (1) ESRD (end stage renal disease) on dialysis: Status: Acute (2) Acute encephalopathy: Status: Acute (3) COVID-19: Status: Acute Plan 74-year-old male with a PMH significant for?ESRD on HD Tue/Tue/Tue, HTN, paroxysmal a flutter, hx of pericardial effusion, and mood disorder who presents to the ED from dialysis for evaluation of weakness, dizziness, and difficulty ambulating. Pt will be admitted to the hospital for treatment and further evaluation of acute metabolic encephalopathy and generalized weakness in the setting of acute COVID infection. Acute encephalopathy Confusion resolved was likely due to COVID infection No hypoxia noted therefore not a candidate for remdesivir or steroids continue symptomatic treatment cough medications and updraft ESRD on HD M/W/F Last dialyzed on today, 04/04/2024 Nephrology consult Frequent falls at home Persistent weakness/dizziness and right lower chest pain Seen by Physical therapy they recommend short-term rehab to maximize function and safety at home due to impaired gait pattern, safety, transfer ability muscle weakness and pain. Subacute right-sided rib fractures likely due to fall Cough medication/analgesics/incentive spirometry HTN Stable blood pressure continue metoprolol 25 mg daily and hold lisinopril follow BP Anemia of chronic disease Stable, at baseline Mood disorder Continue home meds Full Code DVT Prophylaxis: Heparin Pt will require continued inpatient hospitalization for treatment of?dizziness, generalized weakness with recent falls at home in the setting of acute COVID infection, pain management. Quality Stroke Does the patient have a stroke diagnosis?: No VTE Prior VTE?: No VTE Risk Level:: Medical - moderate - high VTE Device Contraindication: Treatment Not Indicated VTE Drug Contraindication: N/A - Med Ordered
[2024-04-05 15:58] VITALS: BP 140/70; PULSE 69; RESP 17; TEMP 36.6; O2SAT 97
[2024-04-05 16:06] VITALS: BMI 20.3
--- NOTE | 2024-04-05 16:38 | PC.NURSE ---
Upon admit, when this rn asked if you have any plan or thoughts of harming self or other during admission questions, pt then answered Occasionally . this rn then asked if pt currently has any plan of thought- pt answered No . notified
[2024-04-05] MEDS: Metoprolol Succinate ER 25 MG TAB.ER.24H PO (16:58)
[2024-04-05 19:08] VITALS: BP 170/70; PULSE 63; RESP 17; TEMP 36.7; O2SAT 98
[2024-04-06] VITALS (8 sets, daily range): BP systolic 142–165; BP diastolic 63–74; PULSE 60–85; RESP 16–20; TEMP 36.1–39.3; O2SAT 90–99
[2024-04-06] MEDS: Acetaminophen 325 MG TABLET 650 MG PO (04:40)
[2024-04-06] MEDS: oxyCODONE HCl Immed Release 5 MG TABLET 2.5 MG PO (04:41)
[2024-04-06 07:14] LABS: Anion Gap 16 (12-20); Blood Urea Nitrogen 41 mg/dL (9-16); Calcium 8.3 mg/dL (8.4-10.2); Carbon Dioxide 28 mmol/L (22-29); Chloride 94 mmol/L (96-108); Creatinine Clr Calc Pharmacy 8.9; Estimated Glomerular Filt Rate 8; Glucose Random 89 mg/dL (60-115); Sodium 133 mmol/L (135-145)
--- NOTE | 2024-04-06 11:00 | MHC.CM.PN ---
Per rounds, pt. is not ready for DC, anticipate DC 04/07/24 to STR at [facility].
[2024-04-06] MEDS: Multivitamin TABLET 1 TAB PO (11:25)
[2024-04-06] MEDS: Ascorbic Acid 500 MG TABLET PO (11:25)
[2024-04-06] MEDS: lamoTRIgine 100 MG TABLET PO (11:25)
[2024-04-06] MEDS: clonazePAM 1 MG TABLET PO ×2 (11:25→19:23)
[2024-04-06] MEDS: OXcarbazepine 300 MG TABLET 600 MG PO ×2 (11:25→20:42)
[2024-04-06] MEDS: Prochlorperazine Maleate 5 MG TABLET PO ×2 (11:26→20:43)
[2024-04-06] MEDS: Cyanocobalamin (Vitamin B-12) 1,000 MCG TABLET 1000 MCG PO (11:26)
--- NOTE | 2024-04-06 13:56 | P.PNNP_ITS ---
Subjective Subjective Date of Service: 04/06/24 Interval history: Being followed for COVID encephalopathy. Feeling better this morning complaining of persistent mild weakness and dizziness, right-sided lower chest pain, no acute events overnight, denies shortness of breath, no chest pain, no nausea, no vomiting. Physical Exam 2 Vital Signs: Vital Signs: Last Vital Signs Temp 99.9 F 04/06/24 11:49 Pulse 63 04/06/24 11:49 Resp 20 04/06/24 11:49 BP 150/66 H 04/06/24 11:49 Pulse Ox 99 04/06/24 11:49 O2 Del Method Room Air 04/06/24 11:49 BMI result Body Mass Index 20.3 Lue AVF Const: General: no acute distress Orientation/consciousness: patient oriented x3 Resp: Auscultation: clear to auscultation bilaterally and diminished lung sounds Cardio: Jugular venous distension: no JVD Heart sounds: S1 normal heart sound present and S2 normal heart sound present Neuro: General: patient oriented x3 Extrem: General: No edema Objective Data Labs 04/04/24 16:51 04/06/24 06:36 Labs: Laboratory Results - last 24 hr 04/06/24 06:36 Sodium 133 L Potassium 5.0 Chloride 94 L Carbon Dioxide 28 Anion Gap 16 BUN 41 H Creatinine 6.67 H* Estim Creat Clear Calc 8.9 Estimated GFR 8 Random Glucose 89 Calcium 8.3 L D Microbiology Microbiology Results: Microbiology 04/04/24 18:43 Blood - Venous Blood Culture - Preliminary No growth after 24 hours. 04/04/24 16:50 Blood - Venous Blood Culture - Preliminary No growth after 24 hours. Procedures Date of Service Date of Service: 04/06/24 Assessment & Plan Assessment and plan (1) ESRD (end stage renal disease) on dialysis: Status: Acute Plan usually has HD at [place] [facility] -- [address] Sweet presented with fall and acute hypoxic respiratory failure last hd was tuesday nephrogenic anemia REC HD tuesday - then MWF optimize volume status renal diet phosphate binders no need for LC Time Spent With Patient Time: Total time managing care of this patient today ____ minutes. Progress Note: Quality Stroke Does the patient have a stroke diagnosis?: No
--- NOTE | 2024-04-06 14:41 | HO.PM.IMPN ---
Subjective Subjective Date of Service: 04/06/24 Interval History: Being followed for dizziness, weakness and fall Encephalopathy resolved denies acute symptoms of fever, no chills, no headache, no lightheadedness, tolerating diet, continued to have impaired balance with ambulation. Review of Systems All other system reviewed and are negative. Physical Exam Vital Signs: Vital Signs: Last Vital Signs Temp 99.9 F 04/06/24 11:49 Pulse 63 04/06/24 11:49 Resp 20 04/06/24 11:49 BP 150/66 H 04/06/24 11:49 Pulse Ox 99 04/06/24 11:49 O2 Del Method Room Air 04/06/24 11:49 BMI result Body Mass Index 20.3 Const: Other: General in no acute distress. Neck supple no JVD. CVS regular rate rhythm, Respiratory lungs clear to auscultation, no respiratory distress, no wheeze, no rhonchi. Gastrointestinal abdomen soft, non tender, bowel sounds audible, no guarding , no rigidity. Extremities no edema. Neuro non focal , speech clear. Skin no rash Psych appropriate affect Objective Data Active Medications Acetaminophen (Acetaminophen 325 Mg Tablet) 650 mg PO Q6H PRN PRN Reason: Pain, Mild (Pain Scale 1-3), fever or headache Last Admin: 04/06/24 04:40 Dose: 650 mg Documented By: BRUCE Albuterol Sulfate (Albuterol Sulfate 90 Mcg 8 Gm Inhaler) 2 puff INHALE Q6H PRN PRN Reason: Shortness Of Breath Or Wheezing Albuterol/Ipratropium (Albuterol/Iprat 2.5/0.5mg 3 Ml Ampul.Neb) 3 ml INHALE RQ4H WHILE AWAKE PRN PRN Reason: Shortness of Breath/Wheezing Ascorbic Acid (Ascorbic Acid 500 Mg Tablet) 500 mg PO DAILY [facility] Last Admin: 04/06/24 11:25 Dose: 500 mg Documented By: MAGALY Calcium Carbonate (Calcium Carbonate 750 Mg Tab.Chew) 750 mg PO Q4H PRN PRN Reason: Heartburn Clonazepam (Clonazepam 1 Mg Tablet) 1 mg PO TID [facility] Last Admin: 04/06/24 11:25 Dose: 1 mg Documented By: MAGALY Cyanocobalamin (Cyanocobalamin (Vitamin B-12) 1,000 Mcg Tablet) 1,000 mcg PO DAILY [facility] Last Admin: 04/06/24 11:26 Dose: 1,000 mcg Documented By: MAGALY Ergocalciferol (Ergocalciferol (Vitamin D2) 1,250 Mcg Capsule) 1,250 mcg PO Q30D [facility] Guaifenesin/Dextromethorphan (Guaifenesin Dm 200/20/10 Ml 10 Ml Syrup) 10 ml PO Q6H PRN PRN Reason: Cough Heparin Sodium (Porcine) (Heparin Sodium,Porcine 5,000 Unit/Ml Vial) 5,000 unit SUBCUT Q12H [facility] Last Admin: 04/06/24 11:28 Dose: Not Given Documented By: MAGALY Non-Admin Reason: Patient Refused Lamotrigine (Lamotrigine 100 Mg Tablet) 100 mg PO DAILY [facility] Last Admin: 04/06/24 11:25 Dose: 100 mg Documented By: MAGALY Lisinopril (Lisinopril 20 Mg Tablet) 20 mg PO DAILY [facility]; Protocol Magnesium Hydroxide (Milk Of Magnesia 30 Ml Oral.Susp) 30 ml PO DAILY PRN PRN Reason: Constipation Meclizine HCl (Meclizine Hcl 25 Mg Tablet) 25 mg PO BID PRN PRN Reason: dizziness Melatonin (Melatonin 3 Mg Tablet) 6 mg PO BEDTIME PRN PRN Reason: Insomnia Metoprolol Succinate (Metoprolol Succinate Er 25 Mg Tab.Er.24h) 25 mg PO DAILY [facility]; Protocol Last Admin: 04/05/24 16:58 Dose: 25 mg Documented By: MAGALY Multivitamins/Vitamin C (Multivitamin Tablet) 1 tab PO DAILY [facility] Last Admin: 04/06/24 11:25 Dose: 1 tab Documented By: MAGALY Ondansetron HCl (Ondansetron Hcl 4 Mg/2 Ml Vial) 4 mg IVPUSH Q8H PRN PRN Reason: Nausea and Vomiting Oxcarbazepine (Oxcarbazepine 300 Mg Tablet) 600 mg PO BID [facility] Last Admin: 04/06/24 11:25 Dose: 600 mg Documented By: MAGALY Prochlorperazine Maleate (Prochlorperazine Maleate 5 Mg Tablet) 5 mg PO BID [facility] Last Admin: 04/06/24 11:26 Dose: 5 mg Documented By: MAGALY Sodium Chloride (0.9 % Sodium Chloride Flush 3 Ml Syringe) 3 ml IVFLUSH QSHIFT [facility] Last Admin: 04/06/24 09:17 Dose: Not Given Documented By: MAGALY Non-Admin Reason: No Access Sodium Polystyrene Sulfonate (Sodium Polystyrene Sulfon/Sorb 15 Gm/60 Ml Oral.Susp) 15 gm PO SUTUTHSA [facility] Last Admin: 04/05/24 11:22 Dose: 15 gm Documented By: MONICA Labs 04/04/24 16:51 04/06/24 06:36 Labs: Laboratory Results - last 24 hr 04/06/24 06:36 Anion Gap 16 Estim Creat Clear Calc 8.9 Estimated GFR 8 Random Glucose 89 Calcium 8.3 L D Microbiology Microbiology Results: Microbiology 04/04/24 18:43 Blood Culture - Preliminary Blood - Venous No growth after 24 hours. 04/04/24 16:50 Blood Culture - Preliminary Blood - Venous No growth after 24 hours. Assessment and Plan (1) ESRD (end stage renal disease) on dialysis: Status: Acute (2) COVID-19: Status: Acute Plan 74-year-old male with a PMH significant for?ESRD on HD Tue/Tue/Tue, HTN, paroxysmal a flutter, hx of pericardial effusion, and mood disorder who presents to the ED from dialysis for evaluation of weakness, dizziness, and difficulty ambulating. Pt will be admitted to the hospital for treatment and further evaluation of acute metabolic encephalopathy and generalized weakness in the setting of acute COVID infection. Acute encephalopathy Confusion resolved was likely due to COVID infection No hypoxia noted, therefore not a candidate for remdesivir or steroids continue symptomatic treatment cough medications and updraft ESRD on HD M/W/F Being followed by Nephrology continue hemodialysis Tuesday and Tuesday Renal diet. Frequent falls at home Persistent impaired balance and high risk for fall and right lower chest pain Seen by Physical therapy they recommend short-term rehab to maximize function and safety at home due to impaired gait pattern, safety, transfer ability muscle weakness and pain. Subacute right-sided rib fractures likely due to fall Cough medication//incentive spirometry/will add oxycodone 2.5 mg q.6 hours as needed for pain HTN Stable blood pressure continue metoprolol 25 mg daily and 0 you can so he has a no charge E also Wai also put the midline or whatever you know abdominal lisinopril follow BP Anemia of chronic disease Stable, at baseline Mood disorder Continue home meds Full Code DVT Prophylaxis: Heparin Pt will require continued inpatient hospitalization for treatment of?dizziness, generalized weakness with recent falls at home in the setting of acute COVID infection, pain management. Quality Stroke Does the patient have a stroke diagnosis?: No VTE Prior VTE?: No VTE Risk Level:: Medical - moderate - high VTE Device Contraindication: Treatment Not Indicated VTE Drug Contraindication: N/A - Med Ordered
[2024-04-06] MEDS: lisinopriL 20 MG TABLET PO (19:23)
[2024-04-06] MEDS: Metoprolol Succinate ER 25 MG TAB.ER.24H PO (19:23)
[2024-04-06] MEDS: Acetaminophen 325 MG TABLET 975 MG PO (20:43)
[2024-04-07 04:00] VITALS: BP 154/71; PULSE 67; RESP 16; TEMP 37.1; O2SAT 97
[2024-04-07] MEDS: Acetaminophen 325 MG TABLET 975 MG PO (07:19)
[2024-04-07 07:57] LABS: Anion Gap 18 (12-20); Blood Urea Nitrogen 31 mg/dL (9-16); Calcium 8.4 mg/dL (8.4-10.2); Carbon Dioxide 31 mmol/L (22-29); Chloride 94 mmol/L (96-108); Creatinine Clr Calc Pharmacy 9.7; Estimated Glomerular Filt Rate 9; Glucose Random 87 mg/dL (60-115); Potassium 4.1 mmol/L (3.3-5.1); Sodium 139 mmol/L (135-145)
[2024-04-07 08:00] VITALS: BP 139/63; PULSE 65; RESP 18; TEMP 37.1; O2SAT 96
[2024-04-07] MEDS: lisinopriL 20 MG TABLET PO (08:25)
[2024-04-07] MEDS: Ascorbic Acid 500 MG TABLET PO (08:25)
[2024-04-07] MEDS: Cyanocobalamin (Vitamin B-12) 1,000 MCG TABLET 1000 MCG PO (08:25)
[2024-04-07] MEDS: OXcarbazepine 300 MG TABLET 600 MG PO ×2 (08:25→21:11)
[2024-04-07] MEDS: clonazePAM 1 MG TABLET PO ×3 (08:26→21:13)
[2024-04-07] MEDS: oxyCODONE HCl Immed Release 5 MG TABLET 2.5 MG PO ×3 (08:26→21:27)
[2024-04-07] MEDS: Metoprolol Succinate ER 25 MG TAB.ER.24H PO (08:26)
[2024-04-07] MEDS: lamoTRIgine 100 MG TABLET PO (08:26)
[2024-04-07] MEDS: Multivitamin TABLET 1 TAB PO (08:27)
[2024-04-07] MEDS: Prochlorperazine Maleate 5 MG TABLET PO ×2 (08:27→21:14)
[2024-04-07] MEDS: Propylene Glycol/PEG 400 Gel Eye Drops 10ML 1 DROP EYE-BOTH (10:05)
[2024-04-07] MEDS: Sodium Polystyrene Sulfon/Sorb 15 GM/60 ML ORAL.SUSP PO (10:05)
[2024-04-07 11:51] VITALS: BP 108/58; PULSE 58; RESP 18; TEMP 36.8; O2SAT 96
--- NOTE | 2024-04-07 14:49 | MHC.CM.PN ---
Addendum entered by Shireen Nichols 04/08/24 12:44: PT NOW BOOKED FOR 1300 HOUR BLS TRANSPORT [facility]IA [facility] TO [facility] Original Note: PT WAS BOOKED TO DC TO [facility] TODAY AT 1600 HOURS [facility]IA [facility] DC BEING HELD DUE TO FEVER OVERNIGHT [facility] INFORMED
[2024-04-07] MEDS: Doxycycline Monohydrate 100 MG CAPSULE PO (14:54)
--- NOTE | 2024-04-07 15:09 | P.PNIM_ITS ---
Subjective Subjective Date of Service: 04/07/24 Interval History: Events from last night noted patient had temp of 102.7 degrees No recurrent fevers this morning, complaining of persistent hard cough productive of thick phlegm unable to describe color. Persistent left-sided lower chest pain with coughing. Review of Systems All other system reviewed and negative Physical Exam 2 Vital Signs: Vital Signs: Last Vital Signs Temp 98.2 F 04/07/24 11:51 Pulse 58 04/07/24 11:51 Resp 18 04/07/24 11:51 BP 108/58 L 04/07/24 11:51 Pulse Ox 96 04/07/24 11:51 O2 Del Method Room Air 04/07/24 11:51 BMI result Body Mass Index 20.3 Const: Other: General in no acute distress. Neck supple no JVD. CVS regular rate rhythm, Respiratory lungs right base rhonchi, no respiratory distress, no wheeze, Gastrointestinal abdomen soft, non tender, bowel sounds audible Extremities no edema. Neuro non focal , speech clear. Skin no rash Psych appropriate affect Objective Data Active Medications Acetaminophen (Acetaminophen 325 Mg Tablet) 975 mg PO Q6H PRN PRN Reason: Pain, Mild (Pain Scale 1-3), fever or headache Last Admin: 04/07/24 07:19 Dose: 975 mg Documented By: CEDRIC Albuterol Sulfate (Albuterol Sulfate 90 Mcg 8 Gm Inhaler) 2 puff INHALE Q6H PRN PRN Reason: Shortness Of Breath Or Wheezing Albuterol/Ipratropium (Albuterol/Iprat 2.5/0.5mg 3 Ml Ampul.Neb) 3 ml INHALE RQ4H WHILE AWAKE PRN PRN Reason: Shortness of Breath/Wheezing Ascorbic Acid (Ascorbic Acid 500 Mg Tablet) 500 mg PO DAILY [facility] Last Admin: 04/07/24 08:25 Dose: 500 mg Documented By: RADHAN Calcium Carbonate (Calcium Carbonate 750 Mg Tab.Chew) 750 mg PO Q4H PRN PRN Reason: Heartburn Clonazepam (Clonazepam 1 Mg Tablet) 1 mg PO TID [facility] Last Admin: 04/07/24 14:54 Dose: 1 mg Documented By: RADHAN Cyanocobalamin (Cyanocobalamin (Vitamin B-12) 1,000 Mcg Tablet) 1,000 mcg PO DAILY [facility] Last Admin: 04/07/24 08:25 Dose: 1,000 mcg Documented By: CEDRIC Doxycycline Monohydrate (Doxycycline Monohydrate 100 Mg Capsule) 100 mg PO Q12H [facility] Last Admin: 04/07/24 14:54 Dose: 100 mg Documented By: CEDRIC Ergocalciferol (Ergocalciferol (Vitamin D2) 1,250 Mcg Capsule) 1,250 mcg PO Q30D [facility] Guaifenesin/Dextromethorphan (Guaifenesin Dm 200/20/10 Ml 10 Ml Syrup) 10 ml PO Q6H PRN PRN Reason: Cough Heparin Sodium (Porcine) (Heparin Sodium,Porcine 5,000 Unit/Ml Vial) 5,000 unit SUBCUT Q12H [facility] Last Admin: 04/07/24 09:54 Dose: Not Given Documented By: CEDRIC Non-Admin Reason: Patient Refused Lamotrigine (Lamotrigine 100 Mg Tablet) 100 mg PO DAILY [facility] Last Admin: 04/07/24 08:26 Dose: 100 mg Documented By: CEDRIC Lisinopril (Lisinopril 20 Mg Tablet) 20 mg PO DAILY [facility]; Protocol Last Admin: 04/07/24 08:25 Dose: 20 mg Documented By: CEDRIC Magnesium Hydroxide (Milk Of Magnesia 30 Ml Oral.Susp) 30 ml PO DAILY PRN PRN Reason: Constipation Meclizine HCl (Meclizine Hcl 25 Mg Tablet) 25 mg PO BID PRN PRN Reason: dizziness Melatonin (Melatonin 3 Mg Tablet) 6 mg PO BEDTIME PRN PRN Reason: Insomnia Metoprolol Succinate (Metoprolol Succinate Er 25 Mg Tab.Er.24h) 25 mg PO DAILY [facility]; Protocol Last Admin: 04/07/24 08:26 Dose: 25 mg Documented By: CEDRIC Multivitamins/Vitamin C (Multivitamin Tablet) 1 tab PO DAILY [facility] Last Admin: 04/07/24 08:27 Dose: 1 tab Documented By: CEDRIC Ondansetron HCl (Ondansetron Hcl 4 Mg/2 Ml Vial) 4 mg IVPUSH Q8H PRN PRN Reason: Nausea and Vomiting Oxcarbazepine (Oxcarbazepine 300 Mg Tablet) 600 mg PO BID [facility] Last Admin: 04/07/24 08:25 Dose: 600 mg Documented By: ECDRIC Oxycodone HCl (Oxycodone Hcl Immed Release 5 Mg Tablet) 2.5 mg PO Q6H PRN PRN Reason: Pain, Severe (Pain Scale 7-10) Last Admin: 04/07/24 08:26 Dose: 2.5 mg Documented By: CEDRIC Prochlorperazine Maleate (Prochlorperazine Maleate 5 Mg Tablet) 5 mg PO BID [facility] Last Admin: 04/07/24 08:27 Dose: 5 mg Documented By: CEDRIC Sodium Chloride (0.9 % Sodium Chloride Flush 3 Ml Syringe) 3 ml IVFLUSH QSHIFT [facility] Last Admin: 04/07/24 14:58 Dose: Not Given Documented By: CEDRIC Non-Admin Reason: no iv\ Sodium Polystyrene Sulfonate (Sodium Polystyrene Sulfon/Sorb 15 Gm/60 Ml Oral.Susp) 15 gm PO SUTUTHSA [facility] Last Admin: 04/07/24 10:05 Dose: 15 gm Documented By: CEDRIC Labs 04/04/24 16:51 04/07/24 06:45 Labs: Laboratory Results - last 24 hr 04/07/24 06:45 Anion Gap 18 Estim Creat Clear Calc 9.7 Estimated GFR 9 Random Glucose 87 Calcium 8.4 Microbiology Microbiology Results: Microbiology 04/04/24 18:43 Blood Culture - Preliminary Blood - Venous No growth after 48 hours. 04/04/24 16:50 Blood Culture - Preliminary Blood - Venous No growth after 48 hours. Assessment and Plan (1) ESRD (end stage renal disease) on dialysis: Status: Acute (2) Acute encephalopathy: Status: Acute (3) COVID-19: Status: Acute (4) Fever: Status: Acute Plan 74-year-old male with a PMH significant for?ESRD on HD Mon/Tue/Tue, HTN, paroxysmal a flutter, hx of pericardial effusion, and mood disorder who presents to the ED from dialysis for evaluation of weakness, dizziness, and difficulty ambulating. Pt will be admitted to the hospital for treatment and further evaluation of acute metabolic encephalopathy and generalized weakness in the setting of acute COVID infection. Acute fever Noted to have fever and range 2.7 last evening chest x-ray showed minimal bibasilar patchy opacities could represent atelectasis versus early infiltrate Due to fever will place on doxycycline , scheduled cough medication, encourage incentive spirometry, out of bed to chair, check CBC and clinical course Acute encephalopathy Confusion resolved was likely due to COVID infection No hypoxia noted, therefore did not require treatment with remdesivir or steroids continue symptomatic treatment cough medications and updraft ESRD on HD M// Being followed by Nephrology continue hemodialysis Tuesday and Tuesday Renal diet. Frequent falls at home Persistent impaired balance and high risk for fall and right lower chest pain Seen by Physical therapy they recommend short-term rehab to maximize function and safety at home due to impaired gait pattern, safety, transfer ability muscle weakness and pain. Subacute right-sided rib fractures likely due to fall Cough medication/encourage incentive spirometry/ oxycodone 2.5 mg q.6 hours as needed for pain HTN Stable blood pressure continue metoprolol 25 mg daily and lisinopril Soft BP today will hold Lasix , patient on Lasix 80 mg on non hemodialysis days Anemia of chronic disease Stable, at baseline Mood disorder Continue home meds Full Code DVT Prophylaxis: Heparin Pt will require continued inpatient hospitalization for treatment of?fever with possible pneumonia requiring antibiotics and close pulmonary follow-up. Quality Stroke Does the patient have a stroke diagnosis?: No VTE Prior VTE?: No VTE Risk Level:: Medical - moderate - high VTE Device Contraindication: Treatment Not Indicated VTE Drug Contraindication: N/A - Med Ordered
[2024-04-07 16:00] VITALS: BP 160/72; PULSE 59; RESP 18; TEMP 36.3; O2SAT 92
[2024-04-07 19:41] VITALS: BP 149/69; PULSE 56; RESP 18; TEMP 36.9; O2SAT 98
[2024-04-07] MEDS: guaiFENesin DM 200/20/10 ML 10 ML SYRUP PO (21:22)
[2024-04-08] VITALS: BP 166/78; PULSE 61; RESP 17; TEMP 36.7; O2SAT 94
[2024-04-08 04:00] VITALS: BP 160/72; PULSE 73; RESP 18; TEMP 37.1; O2SAT 94
[2024-04-08] MEDS: Doxycycline Monohydrate 100 MG CAPSULE PO (05:11)
[2024-04-08] MEDS: oxyCODONE HCl Immed Release 5 MG TABLET 2.5 MG PO (05:13)
[2024-04-08 06:36] LABS: Hematocrit 32.1 % (42.0-52.0); PLT CLUMP 1
[2024-04-08 06:38] LABS: Hemoglobin 10.9 g/dl (14.0-18.0); Mean Corpuscular Hemoglobin 32.6 pg (27.0-33.0); Mean Corpuscular Volume 96.1 fL (80.0-98.0); Mean Platelet Volume 9.6 fL (9.4-12.4); Red Blood Count 3.34 X10*6/uL (4.60-5.80); Red Cell Distribution Width 13.2 % (11.0-16.0)
[2024-04-08 06:48] LABS: Platelet Count 124 X10*3/uL (160-400); White Blood Count 5.7 X10*3/uL (4.8-10.8)
[2024-04-08 07:57] VITALS: BP 156/74; PULSE 70; RESP 18; TEMP 36.9; O2SAT 93
[2024-04-08] MEDS: Ascorbic Acid 500 MG TABLET PO (09:10)
[2024-04-08] MEDS: guaiFENesin DM 200/20/10 ML 10 ML SYRUP PO (09:10)
[2024-04-08] MEDS: Cyanocobalamin (Vitamin B-12) 1,000 MCG TABLET 1000 MCG PO (09:11)
[2024-04-08] MEDS: lamoTRIgine 100 MG TABLET PO (09:11)
[2024-04-08] MEDS: OXcarbazepine 300 MG TABLET 600 MG PO (09:11)
[2024-04-08] MEDS: clonazePAM 1 MG TABLET PO (09:11)
[2024-04-08] MEDS: Prochlorperazine Maleate 5 MG TABLET PO (09:11)
[2024-04-08] MEDS: Multivitamin TABLET 1 TAB PO (09:11)
[2024-04-08] MEDS: Metoprolol Succinate ER 25 MG TAB.ER.24H PO (09:25)
[2024-04-08] MEDS: lisinopriL 20 MG TABLET PO (09:26)
[2024-04-08] MEDS: Sodium Polystyrene Sulfon/Sorb 15 GM/60 ML ORAL.SUSP PO (09:29)
--- NOTE | 2024-04-08 10:06 | PM.DS ---
DS: Providers Provider Date of Service: 04/08/24 Date of admission: 04/04/24 22:36 Date of discharge: 04/08/24 Primary care physician: Unknown Physician Consults: 04/04/24 22:51 Consult to Nephrology Routine Consulting Provider: Will Lo Reason for consultation: ESRD on HD M/W/F DS: Diagnosis Discharge Diagnosis (1) ESRD (end stage renal disease) on dialysis: Status: Acute (2) Acute encephalopathy: Status: Acute (3) COVID-19: Status: Acute (4) Fever: Status: Acute DS: Summary Hospital Course Hospital Course: History of presenting illness: Date of Service: 04/04/24 Attending physician on admission: Dean Willis Chief Complaint: Confusion, dizziness Pt is a 74-year-old male with a PMH significant for?ESRD on HD Tue/Tue/Tue, HTN, paroxysmal a flutter, hx of pericardial effusion, and mood disorder who presents to the ED from dialysis for evaluation of weakness, dizziness, and difficulty ambulating. Patient is a noted poor and reluctant historian. Initially tells this interviewer to ?go away? when approached in his room. Eventually reports felt lightheaded, nauseous, and generally unwell after completing dialysis today. No vomiting or abdominal pain. Patient also complains of vague cough and difficulty breathing, but ?can't remember? when symptoms began. Patient states had increased weakness and recent falls at home, including one either yesterday or the day before yesterday. Patient is otherwise unable/unwilling to provide any further meaningful HPI. In triage and initially in ED was noted to be encephalopathic, believing it to be 1950 and not answering questions appropriately. Patient has had similar presentation to the hospital in the past. ED clinician contacted patient's previous and HCP reports has had increased confusion over the past 2 days, recent fall 2 days prior on Tuesday, and apparently another fall outside of dialysis today. Patient has not sought evaluation for these incidents. Has also been experiencing lightheadedness and dizziness for the past 1-2 months and has been seen by Nephrology for medication adjustment. In the ED pt with low-grade fever of 100.9, and soft BP as low as 134/58. No hypoxia and patient is satting at 95-99% on RA. Labs were significant for H&H of 12.5/37.0, bicarb 34, creatinine 3.68, troponin 32.9, and testing positive for COVID. No leukocytosis. No significant electrolyte abnormalities. Hepatic function WNL. VBG with pH 7.54 and bicarb 39, similar to prior. CT of head showed increased attenuation in subcortical region of bilateral frontal lobes, likely artifactual. Otherwise found no intracranial hemorrhage or edematous cerebral infarction. CT of cervical spine found cervical spondylolysis, but no evidence of acute fracture. CT of chest negative for acute intrathoracic disease, but shows emphysematous changes, dilated main pulmonary artery, and polycystic kidneys, as well as old/subacute fractures of 9th and 10th posterior right ribs and 2.5cm thyroid nodule. EKG demonstrated normal sinus rhythm without evidence of significant ST elevations or depressions. Pt will be admitted to the hospital for treatment and further evaluation of acute metabolic encephalopathy in the setting of acute COVID infection. Hospital course: 74-year-old male with a PMH significant for?ESRD on HD Tue/Tue/Tue, HTN, paroxysmal a flutter, hx of pericardial effusion, and mood disorder who presents to the ED from dialysis for evaluation of weakness, dizziness, and difficulty ambulating And admitted to hospital with a diagnosis of Acute toxic metabolic encephalopathy and generalized weakness in the setting of acute COVID infection. Acute toxic metabolic encephalopathy with frequent falls at home patient admitted to medical floor under isolation, noted to have no hypoxia therefore did not require treatment with remdesivir or steroids, treated with symptomatic medications including cough medications updraft, confusion resolved patient evaluated by Physical therapy they recommended short-term rehab to maximize function and safety at home due to impaired gait pattern, safety, transfer ability and muscle weakness and pain, CT of chest showed emphysematous changes and old/subacute 9th and 10th posterior right ribs fractures likely cause of lower chest discomfort patient is recommended to do incentive spirometry, during course of hospitalization patient noted to have a fever of 102.7 chest x-ray obtained it showed minimal bibasilar patchy opacity could represent atelectasis versus early infiltrate therefore patient placed on doxycycline and recommend to take is scheduled cough medication for 5 days , he had no further bouts of fever WBC remains normal. In regard to ESRD on HD M/W/F he has been continued on hemodialysis and recommend to take Lasix on nondialysis days and follow-up with Nephrology, he has nephrogenic anemia with stable hematocrit For hypertension he was continued on metoprolol, lisinopril and Lasix as above on non hemodialysis days Mood disorder continue home medications. Time Attestation Discharge Coordination Time (in mins): 40 Quality: Safe Use of Opioids Does Pt have an Active Cancer Diagnosis on the Problem List?: No Quality: Stroke Does the patient have a stroke diagnosis?: No Physical Exam Vital Signs: Vital Signs: Last Vital Signs Temp 98.5 F 04/08/24 07:57 Pulse 70 04/08/24 07:57 Resp 18 04/08/24 07:57 BP 156/74 H 04/08/24 07:57 Pulse Ox 93 04/08/24 07:57 O2 Del Method Room Air 04/08/24 07:57 BMI result Body Mass Index 20.3 Const: Other: General awake alert x3, in no acute distress. Neck supple no JVD. CVS regular rate rhythm, Respiratory lungs right sided rhonchi, no respiratory distress, no wheeze, Gastrointestinal abdomen soft, non tender, bowel sounds audible Extremities no edema. Neuro non focal , speech clear. Skin no rash Psych appropriate affect DS: Data Data Completed and Pending Completed studies during hospitalization [Text1]: Procedures Assistance with Respiratory Ventilation, Less than 24 Consecutive Hours, Continuous Positive Airway Pressure (07/31/23) Performance of Urinary Filtration, Intermittent, Less than 6 Hours Per Day (07/31/23) Labs on day of discharge: Laboratory Results - last 24 hr 04/08/24 06:11 WBC 5.7 RBC 3.34 L Hgb 10.9 L Hct 32.1 L MCV 96.1 MCH 32.6 MCHC 34.0 RDW 13.2 Plt Count 124 L D MPV 9.6 Absolute Nucleated RBC 0.000 Nucleated RBC % (auto) 0.0 Preliminary micro results at discharge 04/04/24 18:43 Blood Culture - Preliminary Blood - Venous No growth after 48 hours. 04/04/24 16:50 Blood Culture - Preliminary Blood - Venous No growth after 48 hours. Discharge Plan Discharge Anticipated Discharge Date/Time: 04/08/24 10:01 Patient Disposition: Xfer SNF Discharge Diagnosis: Acute toxic metabolic encephalopathy Frequent falls Subacute right-sided rib fractures Referrals: Physician,Unknown J [Primary Care Provider] - 1 Week Discharge Medications: New doxycycline monohydrate 100 mg Capsule 100 mg PO Q12H Qty: 8 0RF dextromethorphan-guaifenesin 10-100 mg/5 mL Syrup 10 ml PO QID 5 Days Qty: 200 0RF Continued metoprolol succinate 25 mg tablet extended release 24 hr 25 mg PO DAILY 90 Days Qty: 90 3RF lisinopril 20 mg tablet 20 mg PO DAILY clonazepam 1 mg tablet 1 mg PO TID cyanocobalamin (vitamin B-12) 1,000 mcg Tablet 1,000 mcg PO DAILY ascorbic acid (vitamin C) 500 mg Tablet 500 mg PO DAILY furosemide 80 mg tablet 80 mg PO SUTUTHSA oxcarbazepine 600 mg tablet 600 mg PO BID sodium polystyrene sulfonate Powder 15 g PO SUTUTHSA prochlorperazine maleate 5 mg tablet 5 mg PO BID albuterol sulfate [Ventolin HFA] 90 mcg/actuation HFA aerosol inhaler 2 puff INHALATION Q6H PRN (Reason: Shortness Of Breath Or Wheezing) vitamin B complex Tablet 1 tab PO DAILY ergocalciferol (vitamin D2) 1,250 mcg (50,000 unit) capsule 1,250 mcg PO Q30D meclizine 25 mg tablet 25 mg PO BID PRN (Reason: dizziness) lamotrigine [Lamictal] 100 mg Tablet 100 mg PO DAILY Discharge Orders: Discharge Order (Routine); Ordered 04/08/24 Ordered By: Vikas Andino Diet: Low salt diet Activity on Discharge: As tolerated Stand Alone Forms: Patient Portal Discharge page Print Language: Lithuanian Care Plan Goals: Continue hemodialysis as per Nephrology Take doxycycline 1 tablet twice daily and cough medication as prescribed for right-sided subacute rib fractures continue incentive spirometry, cough medication out of bed to chair Acute COVID encephalopathy resolved Frequent falls at home due to impaired balance, impaired gait pattern and muscle weakness therefore being discharged to rehab. Health Concerns: Hypertension Nephrogenic anemia Plan of Treatment: Outpatient follow-up with primary care physician and Nephrology as before Assessment: As above
[2024-04-08 12:00] VITALS: BP 144/64; PULSE 62; RESP 20; TEMP 36.9; O2SAT 93
--- NOTE | 2024-04-19 18:28 | P.CDIM_ITS ---
PROVIDER RESPONSE TEXT: To clarify, the appropriate diagnosis supported by the clinical indicators: Acute Hypoxic Respiratory Failure has been ruled out and a more appropriate diagnosis for this patien christiano's condition is QUERY TEXT: PHYSICIAN'S DOCUMENTATION REQUEST Date of Query: 04/17/2024 07:35 AM EDT Patient Name: LUIS NARAYANAN Admit Date: 04/05/2024 Dear Vikas Andino MD, A review of the medical record indicates additional documentation may be needed. Please review below and update the documentation accordingly. The purpose of this query is not to question medical judgment, but to ensure the accuracy of the cond itions reported for your patient. The diagnosis of Acute Hypoxic Respiratory Failure is documented in the record on 04/06/24 in the Neph rology Progress Note. There is either a lack of clinical support for this condition in the current medical record, or there is a lack of recognized standard criteria to support the condition. Clinical Indicators: Admit with fall and COVID lungs clear to auscultation bilaterally and diminished lung sounds respiratory rate 20, no supplemental oxygen use Chemistry Carbon dioxide 34 on 04/04/24, and 30 on 04/05/24 The request is for one of the following: A) Additional documentation to support the condition. Indicate if this is in lieu of what may be cons idered standard criteria, and/or support why the standard criteria may not be present for this patient. Or B) A more appropriate diagnosis, reflecting the patient's condition. Please clarify the documentation of Acute Hypoxic Respiratory Failure: Acute Hypoxic Respiratory Failure remains a known or suspected condition for this patient Acute Hypoxic Respiratory Failure has been ruled out and a more appropriate diagnosis for this jovita alvarado's condition is Other (explain) Clinically unable to determine (explain) Thank you, Kathya Ortez RN Use of terms such as suspected, likely, concern for, or probable (associated with a specific diagnosi s that is being evaluated, monitored, or treated as if it exists) are acceptable and can be coded in the inpatient se tting, when documented at the time of discharge. Please use your independent medical judgment in providing your response. THIS QUERY IS PART OF THE PERMANENT MEDICAL RECORD
--- NOTE | 2024-04-19 18:28 | P.CDIM_ITS ---
PROVIDER RESPONSE TEXT: To clarify, the appropriate diagnosis supported by the clinical indicators: Diagnosis of viral COVID pneumonia was present on admission and is now resolved QUERY TEXT: PHYSICIAN'S DOCUMENTATION REQUEST Date of Query: 04/17/2024 07:47 AM EDT Patient Name: LUIS NARAYANAN Admit Date: 04/05/2024 Dear Vikas Andino MD, A review of the medical record indicates additional documentation may be needed. Please review below and update the documentation accordingly. Clinical Indicators: Per ER Physician Documentation on 04/04/24: has an audibly congested cough Lung sounds with rales at the bilateral bases left worse than right COVID-19 positive, concern for viral COVID pneumonia CT Chest 04/04/24: 1. No acute intrathoracic disease. 2. Incidental note made of emphysema, dilated main pulmonary artery and polycystic kidneys. 3. New right sided rib fractures which appear subacute or old but new since 07/31/2023. 4. Incidentally noted 2.5 cm left thyroid nodule and benign pulmonary micronodules. The diagnosis of viral COVID pneumonia was documented on 04/04/24 but is not consistently noted in sub sequent documentation. Please clarify the following: Diagnosis of viral COVID pneumonia was present on admission and is now resolved Diagnosis of viral COVID pneumonia was present on admission and is still being monitored, evaluated, or treated Diagnosis of viral COVID pneumonia was ruled out Diagnosis of viral COVID pneumonia is still a likely, suspected, probable diagnosis Other (explain) Clinically unable to determine (explain) Thank you, Kathya Ortez RN Use of terms such as suspected, likely, concern for, or probable (associated with a specific diagnosi s that is being evaluated, monitored, or treated as if it exists) are acceptable and can be coded in the inpatient se tting, when documented at the time of discharge. Please use your independent medical judgment in providing your response. THIS QUERY IS PART OF THE PERMANENT MEDICAL RECORD
== END 2024-04-08 13:16 | disposition skilled nursing facility (03) | DRG 177 ==
LOC: HO.ED 16:49 → HO.EDOVER 22:43 → HO.IMC 04-05 15:12
PROVIDERS: Nurse Practitioner Family; Admitting Provider Student in an Organized Health Care Education/Training Program; Emergency Provider Emergency Medicine; PCP Family Medicine; Visit Provider Hospitalist
DX: U07.1 COVID-19 (principal); G93.41 Metabolic encephalopathy; N18.6 End stage renal disease; J12.82 Pneumonia due to coronavirus disease 2019; S22.41XA Multiple fractures of ribs, right side, initial encounter for closed fracture; I12.0 Hypertensive chronic kidney disease with stage 5 chronic kidney disease or end stage renal disease; D63.1 Anemia in chronic kidney disease; W19.XXXA Unspecified fall, initial encounter; Z99.2 Dependence on renal dialysis; R29.6 Repeated falls; Z91.81 History of falling; Z79.899 Other long term (current) drug therapy
CPT/HCPCS: 0241U; 36415; 70450; 71046; 71250; 72125; 80048; 80053; 80307; 81001; 82140; 82803; 83605; 83690; 83880; 84484; 85025; 85027; 85610; 87040; 90999; 93005; 97162; 97530; 99285; J1644

== ENCOUNTER → 2024-04-04 22:36 | Outpatient (BNV) | payer MEDICARE, OTHER, SELFPAY | PROVIDERS: Admitting Provider Student in an Organized Health Care Education/Training Program; Emergency Provider Emergency Medicine; Visit Provider Hospitalist | DX: U07.1 COVID-19 (principal); G93.40 Encephalopathy, unspecified; N18.6 End stage renal disease; Z99.2 Dependence on renal dialysis | CPT/HCPCS: 99223; 99232; 99233; 99239 ==

== ENCOUNTER → 2024-05-22 14:01 | Outpatient (REF) | payer MEDICARE, OTHER, SELFPAY ==
--- NOTE | 2024-05-22 14:04 | CA_ITS ---
Transthoracic Echocardiogram Patient (Last, First, Middle): Igor May, Gender: Male Date of : 1950 Age: 74 Procedure Date: 05/22/2024 Procedure Type: Transthoracic Echocardiogram Location: OP Height: 180.34 cm Weight: 66. kg BSA: 1.84 m2 Heart Rate: bpm BP: 116 / 60 mmHg Analysis Analyst: Referring MD: Kenny Bowden MD Grey Roll Worker: Kenny Bowden MD Symptoms: I71.21 - Aneurysm of the ascending aorta, without rupture Study Quality: Adequate ECG Rhythm: Sinus Conclusions: - 1. Low normal LV ejection fraction 50-55% with impaired relaxation filling pattern 2. Severely dilated left atrium 3. Mild mitral regurgitation 4. Mildly elevated right ventricular systolic pressure 5. Mildly dilated ascending aorta at 4.1 cm 6. No gross pericardial effusion Findings Left Ventricle Normal left ventricular cavity size. There is normal left ventricular wall thickness. The left ventricular systolic function is low normal. The visually estimated ejection fraction is between 50-55%. Spectral Doppler is indicative of an impaired relaxation filling pattern. E/E prime ratio is between 8 and 15 consistent with indeterminate filling pressures. Wall Motion Rest Echo Findings The basal inferior and mid inferior segments are hypokinetic. All other scored wall segments showed normal motion. Right Ventricle Mildly increased right ventricular cavity size. There is normal right ventricular systolic function. Atria The left atrium is severely dilated. There is no evidence of interatrial shunt. The right atrium is mildly dilated. Aortic Valve Normal aortic valve structure and function. There is no aortic valve stenosis. There is no aortic valve regurgitation. Mitral Valve There is mild posterior mitral leaflet thickening. There is mild mitral annular calcification. There is mild mitral valve regurgitation. There is no mitral valve stenosis. Pulmonic Valve The pulmonic valve was not well visualized. Tricuspid Valve Likely normal tricuspid valve structure and function. There is mild tricuspid valve regurgitation. Normal right atrial pressure. Mild pulmonary hypertension is present. Great Vessels The pulmonary artery was not well visualized. There is mild dilatation of the ascending aorta measuring 4.10 cm. Venous The inferior vena cava is normal in size and collapses greater than 50% with inspiration. Pericardium/Pleural There is no evidence of pericardial effusion. Prior Study Comparison Changes noted compared to prior study. RV systolic pressure has improved Measurements 2D Linear Measurements IVSd: 1.14 0.6-0.9/0.6-1.0 cm LVIDd: 5.35 3.9-5.3/4.2-5.9 cm LVIDd Index: 2.91 2.4-3.2/2.2-3.1 cm/m2 LVIDs: 3.81 2.0-3.6 cm LVPWd: 1.12 0.7-1.1 cm Ao Root: 3.50 2.1-3.5 cm LA Diam: 5.20 2.7-3.8/3.0-4.0 cm LAIDs Index: 2.83 1.5-2.3 cm/m2 LV Mass: 299.08 67-162/88-224 g LV Mass Index: 162.55 43-95/49-115 g/m2 LVOT Diam: 2.30 3.0+(-)1.3 cm Mitral Valve MV Pk E: 1.08 MV PK A: 1.08 MV Decel Time: 216.00 E/A: 1.00 E'Lateral: 6.64 E'Medial: 5.00 E/E' Med: 21.60 E/E' Lat: 16.30 PHT: 63.00 MVA PHT: 3.49 Decel [place]ergus: 4.98 Aortic Valve AoV Pk Bradford: 1.72 AoV Mn Bradford: 1.11 AoV VTI: 0.45 AoV Pk Grad: 12.00 Aov Mn Grad: 6.00 JACOB Cont.VTI: 2.79 LVOT LVOT Pk Bradford: 1.12 LVOT Mn Bradford: 0.69 LVOT VTI: 0.31 LVOT Pk Grad: 5.00 LVOT Mn Grad: 3.00 LVOT Diam: 2.30 LVOT Area: 4.15 Diastolic Function MV Pk E: 1.08 MV Pk A: 1.08 E/A: 1.00 E'Medial: 5.00 E/E' Med: 21.60 E' Laterial: 6.64 E/E' Lat: 16.30 Right Ventricle TAPSE (mm): 26.00 TVS' Bradford: 12.00 Tricuspid Valve TR Pk Bradford: 3.05 TR Pk Grad: 37.00 RA Press: 3.00 RVSP: 40.00 Great Vessels Aorta Ao Root-2D: 3.50 2.0-3.7 cm Ao Asc: 4.10 2.1-3.4 cm Pulmonary Valve PV Pk Bradford: 1.09 Peak PV Grad: 5.00 Updated in Other Vendor System with Status of Final Kenny Bowden MD electronically signed on 05/23/2024 11:52:26 AM with status of Final
--- NOTE | 2024-05-22 14:04 | HM_ITS ---
Conclusion: 1. Patient was monitored for total period of 2 days 2. Baseline was normal sinus rhythm with average heart of 62 beats per minute 3. No significant pauses noted 4. Frequent PVCs noted with total burden of 12.5% 5. No patient reported events MTDD
== END ==
LOC: HO.CARD 14:01
PROVIDERS: PCP Family Medicine; Visit Provider Internal Medicine Cardiovascular Disease
DX: I71.21 Aneurysm of the ascending aorta, without rupture (principal); I47.29 Other ventricular tachycardia
CPT/HCPCS: 93225; 93306

== ENCOUNTER → 2024-05-22 14:04 | Outpatient (BNV) | payer MEDICARE, OTHER, SELFPAY | PROVIDERS: PCP Family Medicine; Visit Provider Internal Medicine Cardiovascular Disease | DX: I49.3 Ventricular premature depolarization (principal) | CPT/HCPCS: 93227; 93306 ==

== ENCOUNTER 2024-06-18 09:40 | Inpatient (IN) | payer MEDICARE, OTHER, SELFPAY ==
--- NOTE | ~2024-06-18 | CT_ITS ---
EXAMINATION: CT ABDOMEN AND PELVIS WITHOUT CONTRAST CLINICAL INFORMATION: abdominal pain COMPARISON: CT abdomen/pelvis 02/28/2023 TECHNIQUE: Multidetector volumetric imaging was performed from the superior aspect of the liver through the pubic symphysis. Sagittal and coronal reformatted images were obtained on the technologist's workstation. This CT examination was performed using dose optimization techniques as appropriate, variously including the following: *Automated exposure control *Adjustment of mA and/or kV according to patient size (this includes techniques or standardized protocols for targeted exams where dose is matched to indication/reason for exam; i.e. extremities or head) *Use of iterative reconstruction technique DLP: 426 mGy-cm FINDINGS: LUNG BASES: Ground glass opacities in the dependent left upper lobe are partially visualized. No pleural effusion. Mitral valve calcifications noted. Otherwise, the visualized mediastinum is normal. LIVER, GALLBLADDER, AND BILIARY TREE: The liver is normal in size, shape, and attenuation. No focal hepatic lesion or biliary ductal dilatation is present. The gallbladder is unremarkable with no evidence of radiopaque gallstones, gallbladder wall thickening, or obvious pericholecystic inflammatory changes. PANCREAS: Diffuse pancreatic duct dilation measuring 0.7 cm (coronal image 37), increased from 0.5 cm on 02/28/2023. No pancreatic mass visualized on this noncontrast enhanced study. SPLEEN: Unremarkable. ADRENAL GLANDS: Unremarkable. KIDNEYS AND URETERS: Polycystic renal disease with scattered calcifications. The dominant right lower pole cystic component which was previously a simple fluid attenuating on noncontrast enhanced study from 2019, measures intermediate density on the present study, up to 35 Hounsfield units. Stable small interspersed hyperdense cysts. No hydronephrosis, hydroureter, or obstructing calculi seen. No perinephric stranding. BLADDER: Unremarkable. GASTROINTESTINAL TRACT: The small and large bowel are nondilated. Moderate scattered colonic diverticulosis without evidence of acute diverticulitis. Unremarkable appendix. ABDOMINAL WALL: No significant hernia is appreciated. LYMPH NODES: There is a prominent right iliac chain lymph node measuring up to 1.2 cm in short axis (series #3 axial image 54). VASCULAR: The aorta is nonaneurysmal with moderate scattered atheromatous calcifications. PELVIC VISCERA: Few coarse prostatic calcifications. Mild prostatomegaly. OSSEOUS STRUCTURES: Left convexity thoracal lumbar scoliosis with apex at L2-L3, as before. Lumbarization of the S1 vertebral body. No acute or suspicious osseous abnormality. CT/CT abdomen pelvis wo IV con IMPRESSION: 1. Ground glass opacities in the dependent left upper lobe are partially visualized, likely infectious/inflammatory etiology. 2. Diffuse pancreatic duct dilation measuring 0.7 cm, increased from 0.5 cm on prior. No pancreatic mass visualized on this noncontrast enhanced study. For further evaluation consider MRI/MRCP. 3. Polycystic renal disease with scattered calcifications. The dominant right lower pole cystic component which was previously a simple fluid attenuating now measures intermediate density. Consider ultrasound versus MRI/MRCP for further assessment. 4. Moderate scattered colonic diverticulosis without evidence of acute diverticulitis. 5. Prominent right iliac chain lymph node measuring up to 1.2 cm in short axis, nonspecific. Fleischner guidelines were followed. Electronically signed by: Irene Garzon DO 06/18/2024 05:36 PM [facility]
[2024-06-18 09:46] VITALS: BP 180/90; PULSE 69; O2SAT 94
[2024-06-18 09:57] VITALS: BP 137/55; PULSE 56; RESP 20; TEMP 36.7; O2SAT 97; BMI 21.8
--- NOTE | 2024-06-18 10:10 | ED_ITS ---
HPI - Nausea/Vomiting/Diarrhea General Chief complaint: Nausea/Vomiting/Diarrhea Stated complaint: Diarrhea Time Seen by Provider: 06/18/24 10:04 Source: patient Mode of arrival: EMS Limitations: no limitations History of Present Illness HPI Narrative: this is 74 years old patient with chronic renal failure on hemodialysis Tuesday presented to the emergency department with a chief complaint of diarrhea abdominal discomfort. Diarrhea has been ongoing for about 2 weeks MD elicited complaint: diarrhea Onset (ago): week(s) (2) Description of vomiting: watery Associated nausea: Yes Associated abdominal pain: Yes Location of pain: none and diffuse Radiation: diffuse Associated symptoms: denies other symptoms Related Data Home Medications ?Medication ?Instructions ?Recorded ?Confirmed ascorbic acid (vitamin C) 500 mg 500 mg PO DAILY 02/28/23 06/18/24 tablet clonazepam 1 mg tablet 1 mg PO BID@1200,1900 02/28/23 06/18/24 cyanocobalamin (vitamin B-12) 1,000 mcg PO DAILY 02/28/23 06/18/24 1,000 mcg tablet furosemide 80 mg tablet 80 mg PO SUTUTHSA 02/28/23 06/18/24 lisinopril 20 mg tablet 20 mg PO DAILY 02/28/23 06/18/24 oxcarbazepine 600 mg tablet 600 mg PO BID 02/28/23 06/18/24 prochlorperazine maleate 5 mg 5 mg PO BID 02/28/23 06/18/24 tablet albuterol sulfate 90 mcg/actuation 2 puff inhalation Q6H PRN 08/01/23 06/18/24 aerosol inhaler (Ventolin HFA) Shortness Of Breath Or Wheezing vitamin B complex 1 tab PO DAILY 08/01/23 06/18/24 lamotrigine 100 mg tablet 100 mg PO DAILY 04/04/24 06/18/24 (Lamictal) meclizine 25 mg tablet 25 mg PO BID PRN dizziness 04/04/24 06/18/24 clonazepam 1 mg tablet 0.5 mg PO DAILY 06/18/24 06/18/24 trazodone 50 mg tablet 50 mg PO BEDTIME 06/18/24 06/18/24 Previous Rx's ?Medication ?Instructions ?Recorded metoprolol succinate 50 mg 50 mg PO DAILY #90 tabs 06/11/24 tablet,extended release 24 hr Allergies Allergy/AdvReac Type Severity Reaction Status Date / Time bupropion [From WELLBUTRIN] AdvReac Unknown CONSTIPATIO Verified 06/18/24 09:57 N NSAIDS (Non-Steroidal AdvReac Unknown RENAL Verified 06/18/24 09:57 Anti-Inflamma [NSAIDS (NON-STEROIDAL ANTI-INFLAMMA] [id number] Reductase AdvReac Unknown UNK Verified 06/18/24 09:57 Inhibitor [[id number] REDUCTASE INHIBITOR] Review of Systems 2 Constitutional: Constitutional: Reports no additional constitutional complaints Cardiovascular: Cardiovascular: Reports no additional cardiovascular complaints Gastrointestinal: Gastrointestinal: Reports nausea PMFSH Past Medical History Attestation statement: The following information was validated with the patient. Source: unable to obtain Medical History ESRD (end stage renal disease) on dialysis Anemia ESRD (end stage renal disease) CKD (chronic kidney disease) Hypoxia Atrial flutter Nicotine dependence, cigarettes, uncomplicated AV fistula Essential hypertension Mood disorder Effusion, pericardium Pleural effusion, left Chronic kidney 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 Surgical History History of colonoscopy History of hernia repair History of parathyroidectomy Social History Social History Household Members: None Housing: Condominium Do you presently have visiting nurse or other home services: Yes Alcohol intake: former Comment: patient refuses bed alarm, and refuses to wear non-skid red socks Patient Tobacco Use Status: Former Tobacco user Tobacco use type: Cigarette Cigarette Packs Per Day: 0.5 Cigarettes Per Day: 10.0 Years Smoked: 60 +/- e-Cigarette/Vaping Use: Currently Using Second Hand Smoke Exposure: Yes Advance Directives: Yes Advance Directives on File: Yes Advance Directives Date on File: 03/01/23 Do you have a plan to hurt others: No Plan service: No Physical Exam 2 Vital Signs: Vital Signs: Last Vital Signs Temp 97.8 F 06/18/24 12:36 Pulse 56 06/18/24 12:36 Resp 13 06/18/24 12:36 BP 141/101 H 06/18/24 12:36 Pulse Ox 97 06/18/24 12:36 O2 Del Method Room Air 06/18/24 12:36 BMI result Body Mass Index 21.8 patient looks well is not toxic-appearing comfortab Const: General: cooperative, comfortable and no acute distress Nutritional Appearance: average body habitus Orientation/consciousness: patient oriented x3 Limitations: no limitations HEENT: Head: Yes normal to inspection Ears: hearing grossly normal bilaterally General nose exam: Normal external nose present Face and sinus: Yes normal facial exam Mouth: Normal oral and palatal mucosa present Throat: Yes posterior oropharynx normal Neck: Neck: Yes normal visual inspection Thyroid: Thyroid normal Chest: Chest palpation & inspection: normal inspection of the chest B reast/axilla inspection: normal inspection of the breasts Resp: Effort & Inspection: normal respiratory effort Auscultation: clear to auscultation bilaterally Cardio: Jugular venous distension: no JVD Rate: regular rate Rhythm: r egular rhythm GI: Inspection: Yes normal to inspection Palpation (GI): Soft to palpation, not firm and nontender Auscultation: normal bowel sounds Skin: General skin exam: no rashes or lesions noted and elasticity normal L esions: no lesions Rashes: no rashes Neuro: General: patient oriented x3 Course Reevaluation(s) Reevaluation #1: Lab reviewed the patient has a potassium 6.2 will need dialysis I discussed the case with the counter manager Dr. Sweet Medications Administered Generic Name Dose Route Start Last Admin Trade Name Freq PRN Reason Stop Dose Admin Heparin Sodium (Porcine) 5,000 unit 06/18/24 11:45 06/18/24 12:11 Heparin Sodium,Porcine 5,000 Unit/Ml Vial SUBCUT Not Given Q8H [place] Discontinued Medications Generic Name Dose Route Start Last Admin Trade Name Freq PRN Reason Stop Dose Admin Sodium Zirconium Cyclosilicate 10 gm 06/18/24 11:37 06/18/24 12:07 Sodium Zirconium Cyclosilicate 10 Gm Powd.Pack PO 06/18/24 11:38 10 gm ONCE ONE Administration Medical Decision Making Medical Decision Making [facility] Narrative: patient presented to ED with a chief complaint of diarrhea it is in hemodialysis the reasonable to check labs Differential Diagnosis Differential Diagnoses: The differential diagnosis associated with the presentation includes viral diarrhea/ colitis / unlikely diarrhea he is not on antibiotic Admission/Observation Consideration of admission/observation: Escalation of care including admission/observation considered Consult Healthcare Provider Management of the patient was discussed with: Hospitalist and Mink Slicer Dr Sweet renal Lab Data MDM Lab Attestation statement: I reviewed the patient's lab results. 06/18/24 10:07 06/18/24 10:07 Labs: Lab Results 06/18/24 Range/Units 10:07 WBC 5.7 (4.8-10.8) X10*3/uL RBC 3.36 L (4.60-5.80) X10*6/uL Hgb 10.8 L (14.0-18.0) g/dl Hct 32.9 L (42.0-52.0) % MCV 97.9 (80.0-98.0) fL MCH 32.1 (27.0-33.0) pg MCHC 32.8 (31.0-36.0) g/dl RDW 13.3 (11.0-16.0) % Plt Count 202 D (160-400) X10*3/uL MPV 9.2 L (9.4-12.4) fL Immature Gran % (Auto) 0.4 (0.0-0.4) % Neut % (Auto) 70.6 (45-73) % Lymph % (Auto) 16.3 L (20-40) % [place] % (Auto) 6.7 (2-11) % Eos % (Auto) 5.1 H (0-4) % Baso % (Auto) 0.9 (0-2) % Lymph # (Auto) 0.9 L (1.2-4.9) X10*3/uL [place] # (Auto) 0.4 (0.1-1.2) X10*3/uL Eos # (Auto) 0.3 (0.0-0.4) X10*3/uL Baso # (Auto) 0.1 (0.0-0.2) X10*3/uL Abs Immat Gran (auto) 0.02 (0.00-0.03) X10*3/uL Absolute Neuts (auto) 4.0 (2.0-8.3) x10*3/uL Absolute Nucleated RBC 0.000 (0.0-0.012) X10*3/uL Nucleated RBC % (auto) 0.0 (0.0-0.2) /100WBC Hold Blue Top SEE NOTE Sodium 138 (135-145) mmol/L Potassium 6.2 H* D (3.3-5.1) mmol/L Chloride 98 (96-108) mmol/L Carbon Dioxide 28 (22-29) mmol/L Anion Gap 18 (12-20) BUN 58 H (9-16) mg/dL Creatinine 8.64 H* (0.5-1.4) mg/dL Estim Creat Clear Calc 7.2 Estimated GFR 6 Random Glucose 105 (60-115) mg/dL Calcium 9.7 D (8.4-10.2) mg/dL Magnesium 3.0 H (1.6-2.6) mg/dL Total Bilirubin 0.3 (0.0-1.0) mg/dL AST 20 (5-37) U/L ALT 17 (0-40) U/L Alkaline Phosphatase 71 (39-117) U/L Total Protein 6.4 L (6.5-8.0) g/dL Albumin 3.9 (3.5-5.0) g/dL Radiology Impression Discussion of test interpretation with radiology: I have reviewed the radiologist's reading. Independent Historian Clinical information obtained from an independent historian. History obtained from or confirmed by: EMS External Record Review External record reviewed: Inpatient record Chronic Conditions CRF on dyalisis Critical Care Time Critical Care Time Critical Care Time: Yes Total Critical Care Time: 60 Attestation: hyperkalemia requiring dyalisis Discharge Plan Discharge Clinical Impression: Acute hyperkalemia CRF (chronic renal failure) Qualifiers: Chronic kidney disease stage: stage 5 (GFR < 15) Qualified Code(s): N18.5 - Chronic kidney disease, stage 5 Diarrhea Qualifiers: Diarrhea type: unspecified type Qualified Code(s): R19.7 - Diarrhea, unspecified Patient Disposition: Admitted As Inpatient
[2024-06-18 10:12] LABS: MANUAL DIFF FLAG NO
[2024-06-18 10:14] LABS: Basophils Absolute Auto 0.1 X10*3/uL (0.0-0.2); Basophils Percent Auto 0.9 % (0-2); Eosinophils Absolute Auto 0.3 X10*3/uL (0.0-0.4); Eosinophils Percent Auto 5.1 % (0-4); Hematocrit 32.9 % (42.0-52.0); Hemoglobin 10.8 g/dl (14.0-18.0); Imm Gran Abs Auto 0.02 X10*3/uL (0.00-0.03); Imm Gran Pct Auto 0.4 % (0.0-0.4); Lymphocytes Absolute Auto 0.9 X10*3/uL (1.2-4.9); Lymphocytes Percent Auto 16.3 % (20-40); Mean Corpuscular HGB Conc 32.8 g/dl (31.0-36.0); Mean Corpuscular Hemoglobin 32.1 pg (27.0-33.0); Mean Corpuscular Volume 97.9 fL (80.0-98.0); Mean Platelet Volume 9.2 fL (9.4-12.4); Monocytes Absolute Auto 0.4 X10*3/uL (0.1-1.2); Monocytes Percent Auto 6.7 % (2-11); Neutrophils Percent Auto 70.6 % (45-73); Platelet Count 202 X10*3/uL (160-400); Red Blood Count 3.36 X10*6/uL (4.60-5.80); Red Cell Distribution Width 13.3 % (11.0-16.0); White Blood Count 5.7 X10*3/uL (4.8-10.8)
[2024-06-18 10:44] LABS: Alanine Aminotransferase 17 U/L (0-40); Albumin Level 3.9 g/dL (3.5-5.0); Alkaline Phosphatase 71 U/L (39-117); Anion Gap 18 (12-20); Aspartate Amino Transferase 20 U/L (5-37); Bilirubin Total 0.3 mg/dL (0.0-1.0); Blood Urea Nitrogen 58 mg/dL (9-16); Calcium 9.7 mg/dL (8.4-10.2); Carbon Dioxide 28 mmol/L (22-29); Chloride 98 mmol/L (96-108); Creatinine Clr Calc Pharmacy 7.2; Estimated Glomerular Filt Rate 6; Glucose Random 105 mg/dL (60-115); Potassium 6.2 mmol/L (3.3-5.1); Sodium 138 mmol/L (135-145); Total Protein 6.4 g/dL (6.5-8.0)
--- NOTE | 2024-06-18 10:48 | ECG_ITS ---
Test Reason : HYPERKALEMIA Blood Pressure : / mmHG Vent. Rate : 055 BPM Atrial Rate : 055 BPM P-R Int : 270 ms QRS Dur : 100 ms QT Int : 446 ms P-R-T Axes : 035 -12 054 degrees QTc Int : 426 ms Sinus bradycardia with 1st degree A-V block Septal infarct (cited on or before 04-APR-2024) Abnormal ECG When compared with ECG of 04-APR-2024 16:14, AR interval has increased Referred By: Carroll Hensley Electronically Signed By:Antony Lee
--- NOTE | 2024-06-18 11:47 | PM.IMHP ---
History of Present Illness Date of Service: 06/18/24 Attending physician on admission: Feliciano Santillan Chief Complaint: diarrhea, nausea, weakness Patient is a 74 year old male past medical history significant for end-stage renal disease hemodialysis MWF, atrial flutter, hypertension mood disorder, chronic anemia, ATTR-CM, grade I COPD and RYAN on CPAP, who presented to diarrhea x2 the and nausea with associated weakness. He reports that he has osteoarthritis in his knees and has had a hard time with going back and forth to the bathroom which has caused weakness. He denies any urinary symptoms including urinary frequency or dysuria. He has diarrhea 0 to 2 times a day, large volumes without any blood coloring. He denies any recent change in diet, medication, antibiotics or sick contacts. He has no upper respiratory symptoms including sore throat, congestion, cough, fever or chills. He has had no episodes of vomiting but complains of some mild nausea. He has no history of also chest pressure which she describes usually occurs after dialysis. He last went for dialysis on Tuesday. The pain does not change with breathing. Smokes occasional cigarettes and denies any drug use or alcohol. He is followed by Dr. Sweet outpatient for his dialysis. Review of Systems Constitutional: Constitutional: Denies chills, Denies fatigue, Denies fever(s) and Denies headache(s) Eyes: Eyes: Denies change in vision ENT: Denies headache(s), Denies nasal congestion, Denies nasal discharge and Denies sore throat Cardiovascular: Cardiovascular: Denies chest pain, Denies rapid heart rate, Denies leg edema and Denies dyspnea Respiratory: Respiratory: Denies chest congestion, Denies cough, Denies dyspnea and Denies wheezing Gastrointestinal: Gastrointestinal: Denies melena, Denies hematochezia, Denies constipation, Denies dyspepsia, Denies heartburn, Reports diarrhea, Reports nausea and Denies vomiting Genitourinary: Genitourinary: Denies dysuria and Denies urinary frequency Musculoskeletal: Musculoskeletal: Reports arthralgias, Denies numbness and Denies tingling Integumentary/Breasts: Skin/Breast: Denies rash Neurologic: Denies confusion, Denies headache(s), Denies numbness and Denies tingling Psychiatric: Psychiatric: Denies confusion Endocrine: Endocrine: Denies fatigue Hematologic/Lymphatic: Hematologic/Lymphatic: Denies easy bleeding Allergic/Immunologic: Allergic/Immunologic: Denies wheezing [facility] Medical History ESRD (end stage renal disease) on dialysis Anemia ESRD (end stage renal disease) CKD (chronic kidney disease) Hypoxia Atrial flutter Nicotine dependence, cigarettes, uncomplicated AV fistula Essential hypertension Mood disorder Effusion, pericardium Pleural effusion, left Chronic kidney 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 Functional capacity: uses cane/walker Surgical History History of colonoscopy History of hernia repair History of parathyroidectomy Social History Household Members: None Housing: Condominium Do you presently have visiting nurse or other home services: Yes Alcohol intake: former Comment: patient refuses bed alarm, and refuses to wear non-skid red socks Patient Tobacco Use Status: Former Tobacco user Tobacco use type: Cigarette Cigarette Packs Per Day: 0.5 Cigarettes Per Day: 10.0 Years Smoked: 60 +/- e-Cigarette/Vaping Use: Currently Using Second Hand Smoke Exposure: Yes Advance Directives: Yes Advance Directives on File: Yes Advance Directives Date on File: 03/01/23 Do you have a plan to hurt others: No Plan service: No Meds Allergies Allergy/AdvReac Type Severity Reaction Status Date / Time bupropion [From WELLBUTRIN] AdvReac Unknown CONSTIPATIO Verified 06/18/24 09:57 N NSAIDS (Non-Steroidal AdvReac Unknown RENAL Verified 06/18/24 09:57 Anti-Inflamma [NSAIDS (NON-STEROIDAL ANTI-INFLAMMA] [id number] Reductase AdvReac Unknown UNK Verified 06/18/24 09:57 Inhibitor [[id number] REDUCTASE INHIBITOR] Active Medications: Current Medications Acetaminophen (Acetaminophen 325 Mg Tablet) 650 mg PO Q6H PRN PRN Reason: Pain, Mild (Pain Scale 1-3), fever or headache Calcium Carbonate (Calcium Carbonate 750 Mg Tab.Chew) 750 mg PO Q4H PRN PRN Reason: Heartburn Heparin Sodium (Porcine) (Heparin Sodium,Porcine 5,000 Unit/Ml Vial) 5,000 unit SUBCUT Q8H [place] Magnesium Hydroxide (Milk Of Magnesia 30 Ml Oral.Susp) 30 ml PO DAILY PRN PRN Reason: Constipation Melatonin (Melatonin 3 Mg Tablet) 6 mg PO BEDTIME PRN PRN Reason: Insomnia Ondansetron HCl (Ondansetron Hcl 4 Mg/2 Ml Vial) 4 mg IVPUSH Q8H PRN PRN Reason: Nausea and Vomiting Sodium Chloride (0.9 % Sodium Chloride Flush 3 Ml Syringe) 3 ml IVFLUSH QSHIFT [facility] Sodium Zirconium Cyclosilicate (Sodium Zirconium Cyclosilicate 10 Gm Powd.Pack) 10 gm PO ONCE ONE Stop: 06/18/24 11:38 Home Medications ?Medication ?Instructions ?Recorded ?Confirmed ?Last Taken ?Type ascorbic acid (vitamin C) 500 mg 500 mg PO DAILY 02/28/23 06/18/24 06/17/24 History tablet clonazepam 1 mg tablet 1 mg PO BID@1200,1900 02/28/23 06/18/24 06/17/24 History cyanocobalamin (vitamin B-12) 1,000 mcg PO DAILY 02/28/23 06/18/24 06/17/24 History 1,000 mcg tablet furosemide 80 mg tablet 80 mg PO SUTUTHSA 02/28/23 06/18/24 06/17/24 History lisinopril 20 mg tablet 20 mg PO DAILY 02/28/23 06/18/24 06/17/24 History oxcarbazepine 600 mg tablet 600 mg PO BID 02/28/23 06/18/24 06/17/24 History prochlorperazine maleate 5 mg 5 mg PO BID 02/28/23 06/18/24 06/17/24 History tablet albuterol sulfate 90 mcg/actuation 2 puff inhalation Q6H PRN 08/01/23 06/18/24 Unknown History aerosol inhaler (Ventolin HFA) Shortness Of Breath Or Wheezing vitamin B complex 1 tab PO DAILY 08/01/23 06/18/24 06/17/24 History lamotrigine 100 mg tablet 100 mg PO DAILY 04/04/24 06/18/24 06/17/24 History (Lamictal) meclizine 25 mg tablet 25 mg PO BID PRN dizziness 04/04/24 06/18/24 06/17/24 History clonazepam 1 mg tablet 0.5 mg PO DAILY 06/18/24 06/18/24 06/17/24 History trazodone 50 mg tablet 50 mg PO BEDTIME 06/18/24 06/18/24 06/17/24 History Physical Exam Vital Signs and Narrative: Vital Signs: Last Vital Signs Temp 98.1 F 06/18/24 09:57 Pulse 56 06/18/24 09:57 Resp 20 06/18/24 09:57 BP 137/55 L 06/18/24 09:57 Pulse Ox 97 06/18/24 09:57 O2 Del Method Room Air 06/18/24 09:57 BMI result Body Mass Index 21.8 General: AOx3, no acute distress Resp: CTA bilaterally CVS: S1, S2, RRR GI: +BS, NT, no distention Skin: Warm, dry Extremities: No LE edema Psych: Appropriate affect Const: General: No confusion Orientation/consciousness: No confusion Neuro: General: No confusion Results Labs 06/18/24 10:07 06/18/24 10:07 Labs: Laboratory Results - last 24 hr 06/18/24 10:07 MCV 97.9 MCH 32.1 MCHC 32.8 RDW 13.3 Plt Count 202 D MPV 9.2 L Immature Gran % (Auto) 0.4 Neut % (Auto) 70.6 Lymph % (Auto) 16.3 L [place] % (Auto) 6.7 Eos % (Auto) 5.1 H Baso % (Auto) 0.9 Lymph # (Auto) 0.9 L [place] # (Auto) 0.4 Eos # (Auto) 0.3 Baso # (Auto) 0.1 Abs Immat Gran (auto) 0.02 Absolute Neuts (auto) 4.0 Absolute Nucleated RBC 0.000 Nucleated RBC % (auto) 0.0 Hold Blue Top SEE NOTE Anion Gap 18 Estim Creat Clear Calc 7.2 Estimated GFR 6 Random Glucose 105 Calcium 9.7 D Total Bilirubin 0.3 AST 20 ALT 17 Alkaline Phosphatase 71 Total Protein 6.4 L Albumin 3.9 Assessment and Plan (1) Hyperkalemia: Status: Acute (2) ESRD (end stage renal disease) on dialysis: Status: Acute (3) Diarrhea: Qualifiers: Diarrhea type: unspecified type Qualified Code(s): R19.7 - Diarrhea, unspecified Status: Acute Plan Patient is a 74 year old male past medical history significant for end-stage renal disease hemodialysis MWF, atrial flutter, hypertension, mood disorder, chronic anemia, ATTR-CM, grade I COPD and RYAN on CPAP, who presented to diarrhea x2 the and nausea with associated weakness. Last dialysis Tuesday, hyperkalemia on labs. Plan to admit for dialysis and monitoring due to hyperkalemia. hyperkalemia/ESRD on HD MWF - K 6.2, given Lokelma 10 mg - recheck potassium @1600 - continue telemetry - admit to med tele - nephro consult for dialysis with Dr. Sweet Diarrhea -- likely secondary to hyperkalemia - A/P CT pending - stool studies including C diff PCR - monitor CBC and BMP Paroxysmal atrial flutter - continue metoprolol Hypertension - continue metoprolol and lisinopril Chronic anemia - H&H stable - monitor CBC ATTR-CM - continue furosemide mood disorder - continue clonazepam, lamotrigine, oxcarbazepine, prochlorperazine grade 1 COPD, no acute exacerbation - albuterol PRN RYAN on CPAP - CPAP QHS DNR/DNI VTE prophy: heparin Patient with end-stage renal disease on hemodialysis complicated by hyperkalemia and weakness secondary to to diarrhea requiring admission for hemodialysis and monitoring for at least 2 midnights stay. Quality Stroke Does the patient have a stroke diagnosis?: No VTE Prior VTE?: No VTE Risk Level:: Medical - moderate - high VTE Device Contraindication: Treatment Not Indicated VTE Drug Contraindication: N/A - Med Ordered
[2024-06-18] MEDS: Sodium Zirconium Cyclosilicate 10 GM POWD.PACK PO (12:07)
--- NOTE | 2024-06-18 12:22 | PHA.MEDREC ---
Pharmacy Consult ? Medication Reconciliation Pharmacy has completed the medication reconciliation. Patient had a list with them. Patient and I went over list together.
[2024-06-18 12:36] VITALS: BP 141/101; PULSE 56; RESP 13; TEMP 36.6; O2SAT 97
--- NOTE | 2024-06-18 15:00 | PC.NURSE ---
patient off unit in dialysis at this time
[2024-06-18] MEDS: 0.9 % Sodium Chloride Flush 3 ML SYRINGE IVFLUSH (17:57)
[2024-06-18 17:58] VITALS: BP 146/49; PULSE 54; RESP 14; TEMP 36.6; O2SAT 100
--- NOTE | 2024-06-18 17:58 | PC.NURSE ---
returned from dialysis, provided w/ sandwich and drink. resting quietly in room w/ call perez in reach
[2024-06-18 19:01] LABS: Anion Gap 17 (12-20); Blood Urea Nitrogen 33 mg/dL (9-16); Calcium 9.8 mg/dL (8.4-10.2); Carbon Dioxide 25 mmol/L (22-29); Chloride 99 mmol/L (96-108); Creatinine Clr Calc Pharmacy 10.9; Estimated Glomerular Filt Rate 10; Glucose Random 90 mg/dL (60-115); Potassium 4.7 mmol/L (3.3-5.1); Sodium 136 mmol/L (135-145)
--- NOTE | 2024-06-18 19:15 | PC.NURSE ---
patient refusing Heparin, education provided
[2024-06-18] MEDS: clonazePAM 1 MG TABLET PO (19:16)
[2024-06-18 19:20] VITALS: BP 125/44; PULSE 55; RESP 12; TEMP 36.6; O2SAT 95
--- NOTE | 2024-06-18 21:07 | P.CONNP_ITS ---
History of Present Illness Reason for Consult Consult date: 06/18/24 Chief Complaint Chief complaint: Hyperkalemia, diarrhea, nausea History of Present Illness Narrative: 74Y/O M ESRD usu mwf [facility] adm c/o diarrhea and gen weakness. Noted hyperK Seen in ER and then again during HD [facility] CP/SOB PMH as noted below Review of Systems Constitutional: Reports no additional constitutional complaints, Denies chills, Denies fatigue, Denies fever(s) and Denies headache(s) Eyes: Denies change in vision Denies headache(s), Denies nasal congestion, Denies nasal discharge and Denies sore throat Cardiovascular: Reports no additional cardiovascular complaints, Denies chest pain, Denies rapid heart rate, Denies leg edema and Denies dyspnea Respiratory: Denies chest congestion, Denies cough, Denies dyspnea and Denies wheezing Gastrointestinal: Denies melena, Denies hematochezia, Denies constipation, Denies dyspepsia, Denies heartburn, Reports diarrhea, Reports nausea and Denies vomiting Genitourinary: Denies dysuria and Denies urinary frequency Musculoskeletal: Reports arthralgias, Denies numbness and Denies tingling Skin/Breast: Denies rash Denies confusion, Denies headache(s), Denies numbness and Denies tingling Psychiatric: Denies confusion Endocrine: Denies fatigue Hematologic/Lymphatic: Denies easy bleeding Allergic/Immunologic: Denies wheezing PMFSH Past Medical History Medical History ESRD (end stage renal disease) on dialysis Anemia ESRD (end stage renal disease) CKD (chronic kidney disease) Hypoxia Atrial flutter Nicotine dependence, cigarettes, uncomplicated AV fistula Essential hypertension Mood disorder Effusion, pericardium Pleural effusion, left Chronic kidney 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 Surgical History Surgical History History of colonoscopy History of hernia repair History of parathyroidectomy Social History Social History Household Members: None Housing: Condominium Do you presently have visiting nurse or other home services: Yes Alcohol intake: former Comment: patient refuses bed alarm, and refuses to wear non-skid red socks Patient Tobacco Use Status: Former Tobacco user Tobacco use type: Cigarette Cigarette Packs Per Day: 0.5 Cigarettes Per Day: 10.0 Years Smoked: 60 +/- e-Cigarette/Vaping Use: Currently Using Second Hand Smoke Exposure: Yes Advance Directives: Yes Advance Directives on File: Yes Advance Directives Date on File: 03/01/23 Do you have a plan to hurt others: No Plan service: No Meds Allergies Allergy/AdvReac Type Severity Reaction Status Date / Time bupropion [From WELLBUTRIN] AdvReac Unknown CONSTIPATIO Verified 06/18/24 09:57 N NSAIDS (Non-Steroidal AdvReac Unknown RENAL Verified 06/18/24 09:57 Anti-Inflamma [NSAIDS (NON-STEROIDAL ANTI-INFLAMMA] [id number] Reductase AdvReac Unknown UNK Verified 06/18/24 09:57 Inhibitor [[id number] REDUCTASE INHIBITOR] Active Medications: Current Medications Acetaminophen (Acetaminophen 325 Mg Tablet) 650 mg PO Q6H PRN PRN Reason: Pain, Mild (Pain Scale 1-3), fever or headache Albuterol Sulfate (Albuterol Sulfate 90 Mcg 8 Gm Inhaler) 2 puff INHALE Q6H PRN PRN Reason: Shortness Of Breath Or Wheezing Ascorbic Acid (Ascorbic Acid 500 Mg Tablet) 500 mg PO DAILY [facility] Calcium Carbonate (Calcium Carbonate 750 Mg Tab.Chew) 750 mg PO Q4H PRN PRN Reason: Heartburn Clonazepam (Clonazepam 0.5 Mg Tablet) 0.5 mg PO DAILY [facility] Clonazepam (Clonazepam 1 Mg Tablet) 1 mg PO BID@1200,1900 [facility] Last Admin: 06/18/24 19:16 Dose: 1 mg Cyanocobalamin (Cyanocobalamin (Vitamin B-12) 1,000 Mcg Tablet) 1,000 mcg PO DAILY [facility] Furosemide (Furosemide 40 Mg Tablet) 80 mg PO SuTuThSa@0900 [facility]; Protocol Heparin Sodium (Porcine) (Heparin Sodium,Porcine 5,000 Unit/Ml Vial) 5,000 unit SUBCUT Q8H [facility] Last Admin: 06/18/24 19:16 Dose: Not Given Lamotrigine (Lamotrigine 100 Mg Tablet) 100 mg PO DAILY [facility] Lisinopril (Lisinopril 20 Mg Tablet) 20 mg PO DAILY [facility]; Protocol Magnesium Hydroxide (Milk Of Magnesia 30 Ml Oral.Susp) 30 ml PO DAILY PRN PRN Reason: Constipation Melatonin (Melatonin 3 Mg Tablet) 6 mg PO BEDTIME PRN PRN Reason: Insomnia Metoprolol Succinate (Metoprolol Succinate Er 50 Mg Tab.Er.24h) 50 mg PO DAILY [facility]; Protocol Multivitamins/Vitamin C (Multivitamin Tablet) 1 tab PO DAILY [facility] Ondansetron HCl (Ondansetron Hcl 4 Mg/2 Ml Vial) 4 mg IVPUSH Q8H PRN PRN Reason: Nausea and Vomiting Oxcarbazepine (Oxcarbazepine 300 Mg Tablet) 600 mg PO BID [facility] Prochlorperazine Maleate (Prochlorperazine Maleate 5 Mg Tablet) 5 mg PO BID [facility] Sodium Chloride (0.9 % Sodium Chloride Flush 3 Ml Syringe) [address] [facility] Last Admin: 06/18/24 17:57 Dose: 3 ml Trazodone HCl (Trazodone Hcl 50 Mg Tablet) 50 mg PO BEDTIME [facility] Home Medications ?Medication ?Instructions ?Recorded ?Confirmed ?Last Taken ?Type ascorbic acid (vitamin C) 500 mg 500 mg PO DAILY 02/28/23 06/18/24 06/17/24 History tablet clonazepam 1 mg tablet 1 mg PO BID@1200,1900 02/28/23 06/18/24 06/17/24 History cyanocobalamin (vitamin B-12) 1,000 mcg PO DAILY 02/28/23 06/18/24 06/17/24 History 1,000 mcg tablet furosemide 80 mg tablet 80 mg PO SUTUTHSA 02/28/23 06/18/24 06/17/24 History lisinopril 20 mg tablet 20 mg PO DAILY 02/28/23 06/18/24 06/17/24 History oxcarbazepine 600 mg tablet 600 mg PO BID 02/28/23 06/18/24 06/17/24 History prochlorperazine maleate 5 mg 5 mg PO BID 02/28/23 06/18/24 06/17/24 History tablet albuterol sulfate 90 mcg/actuation 2 puff inhalation Q6H PRN 08/01/23 06/18/24 Unknown History aerosol inhaler (Ventolin HFA) Shortness Of Breath Or Wheezing vitamin B complex 1 tab PO DAILY 08/01/23 06/18/24 06/17/24 History lamotrigine 100 mg tablet 100 mg PO DAILY 04/04/24 06/18/24 06/17/24 History (Lamictal) meclizine 25 mg tablet 25 mg PO BID PRN dizziness 04/04/24 06/18/24 06/17/24 History clonazepam 1 mg tablet 0.5 mg PO DAILY 06/18/24 06/18/24 06/17/24 History trazodone 50 mg tablet 50 mg PO BEDTIME 06/18/24 06/18/24 06/17/24 History Physical Exam Vital Signs: Last Vital Signs Temp 97.9 F 06/18/24 19:20 Pulse 55 06/18/24 19:20 Resp 12 06/18/24 19:20 BP 125/44 L 06/18/24 19:20 Pulse Ox 95 06/18/24 19:20 O2 Del Method Room Air 06/18/24 19:20 BMI result Body Mass Index 21.8 Const General: cooperative, comfortable and no acute distress; No confusion Nutritional Appearance: average body habitus Orientation/consciousness: patient oriented x3 and No confusion Limitations: no limitations HEENT Head: Yes normal to inspection Ears: hearing grossly normal bilaterally General nose exam: Normal external nose present Face and sinus: Yes normal facial exam Mouth: Normal oral and palatal mucosa present Throat: Yes posterior oropharynx normal Neck Neck: Yes normal visual inspection Thyroid: Thyroid normal Chest Chest palpation & inspection: normal inspection of the chest Breast/axilla inspection: normal inspection of the breasts Resp Effort & Inspection: normal respiratory effort Auscultation: clear to auscultation bilaterally Cardio Jugular venous distension: no JVD Rate: regular rate Rhythm: regular rhythm GI Inspection: Yes normal to inspection Palpation (GI): Soft to palpation, not firm and nontender Auscultation: normal bowel sounds Skin General skin exam: no rashes or lesions noted and elasticity normal Lesions: no lesions Rashes: no rashes Neuro General: patient oriented x3 and No confusion Results Lab Results 06/18/24 10:07 06/18/24 18:30 Lab results: Chemistry 06/18/24 06/18/24 10:07 18:30 Sodium 138 136 Potassium 6.2 H* D 4.7 D Carbon Dioxide 28 25 BUN 58 H 33 H Creatinine 8.64 H* 5.69 H* Calcium 9.7 D 9.8 Hematology 12/02/24 10:07 WBC 5.7 Hgb 10.8 L Plt Count 202 D Assessment and Plan (1) Hyperkalemia: Status: Acute (2) ESRD (end stage renal disease) on dialysis: Status: Acute (3) Diarrhea: Qualifiers: Diarrhea type: unspecified type Qualified Code(s): R19.7 - Diarrhea, unspecified Status: Acute Plan Patient is a 74 year old male past medical history significant for end-stage renal disease hemodialysis MWF, atrial flutter, hypertension, mood disorder, chronic anemia, ATTR-CM, grade I COPD and RYAN on CPAP, who presented to diarrhea x2 the and nausea with associated weakness. Last dialysis Tuesday, hyperkalemia on labs. Plan to admit for dialysis and monitoring due to hyperkalemia. ESRD: usu HD mwf; last HD Sat HyperK Diarrhea: GI eval and w/u inprogress REC: HD today low K bath; GI eval Procedures Date of Service Date of Service: 06/18/24
[2024-06-18] MEDS: OXcarbazepine 300 MG TABLET 600 MG PO (21:11)
[2024-06-18] MEDS: traZODone HCL 50 MG TABLET PO (21:12)
[2024-06-18] MEDS: Prochlorperazine Maleate 5 MG TABLET PO (21:12)
[2024-06-19] VITALS (8 sets, daily range): BP systolic 118–151; BP diastolic 52–64; PULSE 54–56; RESP 12–18; TEMP 36.5–36.8; O2SAT 95–98
[2024-06-19] MEDS: 0.9 % Sodium Chloride Flush 3 ML SYRINGE IVFLUSH ×2 (01:18→08:09)
[2024-06-19] MEDS: Acetaminophen 325 MG TABLET 650 MG PO (01:21)
[2024-06-19 05:07] LABS: MANUAL DIFF FLAG NO
[2024-06-19 05:08] LABS: Basophils Absolute Auto 0.1 X10*3/uL (0.0-0.2); Basophils Percent Auto 1.2 % (0-2); Eosinophils Absolute Auto 0.3 X10*3/uL (0.0-0.4); Eosinophils Percent Auto 5.9 % (0-4); Hematocrit 32.1 % (42.0-52.0); Hemoglobin 10.9 g/dl (14.0-18.0); Imm Gran Abs Auto 0.01 X10*3/uL (0.00-0.03); Imm Gran Pct Auto 0.2 % (0.0-0.4); Lymphocytes Absolute Auto 1.2 X10*3/uL (1.2-4.9); Lymphocytes Percent Auto 20.3 % (20-40); Mean Corpuscular Hemoglobin 32.6 pg (27.0-33.0); Mean Corpuscular Volume 96.1 fL (80.0-98.0); Mean Platelet Volume 9.3 fL (9.4-12.4); Monocytes Absolute Auto 0.6 X10*3/uL (0.1-1.2); Monocytes Percent Auto 9.5 % (2-11); Neutrophils Absolute Auto 3.6 x10*3/uL (2.0-8.3); Neutrophils Percent Auto 62.9 % (45-73); Platelet Count 183 X10*3/uL (160-400); Red Blood Count 3.34 X10*6/uL (4.60-5.80); White Blood Count 5.8 X10*3/uL (4.8-10.8)
[2024-06-19 05:34] LABS: Anion Gap 17 (12-20); Blood Urea Nitrogen 40 mg/dL (9-16); Calcium 8.7 mg/dL (8.4-10.2); Carbon Dioxide 25 mmol/L (22-29); Chloride 97 mmol/L (96-108); Creatinine Clr Calc Pharmacy 9.7; Estimated Glomerular Filt Rate 9; Glucose Random 89 mg/dL (60-115); Potassium 5.2 mmol/L (3.3-5.1); Sodium 134 mmol/L (135-145)
[2024-06-19] MEDS: Ascorbic Acid 500 MG TABLET PO (08:04)
[2024-06-19] MEDS: clonazePAM 0.5 MG TABLET PO (08:04)
[2024-06-19] MEDS: lamoTRIgine 100 MG TABLET PO (08:05)
[2024-06-19] MEDS: Multivitamin TABLET 1 TAB PO (08:05)
[2024-06-19] MEDS: Furosemide 40 MG TABLET 80 MG PO (08:06)
[2024-06-19] MEDS: Metoprolol Succinate ER 50 MG TAB.ER.24H PO (08:07)
[2024-06-19] MEDS: OXcarbazepine 300 MG TABLET 600 MG PO (08:07)
[2024-06-19] MEDS: lisinopriL 20 MG TABLET PO (08:08)
[2024-06-19] MEDS: Cyanocobalamin (Vitamin B-12) 1,000 MCG TABLET 1000 MCG PO (08:09)
[2024-06-19] MEDS: Prochlorperazine Maleate 5 MG TABLET PO (08:09)
--- NOTE | 2024-06-19 09:10 | MHC.CM.PN ---
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
--- NOTE | 2024-06-19 11:55 | P.DS_ITS ---
DS: Providers Provider Date of Service: 06/19/24 Date of admission: 06/18/24 11:37 Date of discharge: 06/19/24 Primary care physician: Gerald Davis MD Consults: 06/18/24 10:59 Consult to Nephrology Stat Consulting Provider: Justin Sweet Reason for consultation: dyalisis pt with hyperkalemia Has provider been notified: Yes DS: Diagnosis Discharge Diagnosis (1) ESRD (end stage renal disease) on dialysis: Status: Acute (2) Diarrhea: Status: Acute (3) Acute hyperkalemia: Status: Acute DS: Summary Hospital Course Hospital Course: Admission note HPI Patient is a 74 year old male past medical history significant for end-stage renal disease hemodialysis MWF, atrial flutter, hypertension mood disorder, chronic anemia, ATTR-CM, grade I COPD and RYAN on CPAP, who presented to diarrhea x2 the and nausea with associated weakness. He reports that he has osteoarthritis in his knees and has had a hard time with going back and forth to the bathroom which has caused weakness. He denies any urinary symptoms including urinary frequency or dysuria. He has diarrhea 0 to 2 times a day, large volumes without any blood coloring. He denies any recent change in diet, medication, antibiotics or sick contacts. He has no upper respiratory symptoms including sore throat, congestion, cough, fever or chills. He has had no episodes of vomiting but complains of some mild nausea. He has no history of also chest pressure which she describes usually occurs after dialysis. He last went for dialysis on Tuesday. The pain does not change with breathing. Smokes occasional cigarettes and denies any drug use or alcohol. He is followed by Dr. Sweet outpatient for his dialysis. Hospital course The patient was admitted for treatment of acute hyperkalemia on ESRD on HD MWF with potassium of 6.2 given Lokelma 10 mg with mild improvement. Had nephrology evaluation who did an urgent Dialysis with improvement in potassium level upon repeat. He will be discharged home to continue dialysis according to his regular schedule. He had Diarrhea on presentation with abdominal/pelvic CT. He did not have any further episodes to check the ordered stool studies including C diff PCR. # Pancreatic duct dilatation: noticed on CT abd\pel: Diffuse pancreatic duct dilation measuring 0.7 cm, increased from 0.5 cm on prior. No pancreatic mass visualized on this noncontrast enhanced study. For further evaluation consider MRI/MRCP. # CT Also reported Polycystic renal disease with scattered calcifications. The dominant right lower pole cystic component which was previously a simple fluid attenuating now measures intermediate density. Consider ultrasound versus MRI/MRCP for further assessment. Discharge plan Continue dialysis as scheduled Continue home medications Follow up with PCP for an outpatient MRCP for further details over pancreatic duct and cystic changes in kidneys The patient improved quicker than anticipated 2 nights stay and will not need 2 overnight stay inpatient. Time Attestation Discharge Coordination Time (in mins): 43 Quality: Safe Use of Opioids Does Pt have an Active Cancer Diagnosis on the Problem List?: No Quality: Stroke Does the patient have a stroke diagnosis?: No Physical Exam Vital Signs: Vital Signs: Last Vital Signs Temp 97.8 F 06/19/24 06:37 Pulse 56 06/19/24 08:07 Resp 16 06/19/24 06:37 BP 136/56 L 06/19/24 11:12 Pulse Ox 95 06/19/24 06:37 O2 Del Method Room Air 06/19/24 06:37 BMI result Body Mass Index 21.8 Const: Other: Constitutional : Awake, interactive, not in distress Neck : Normal inspection, Supple Cardiovascular : RRR, no JVP, no lower extremity edema Respiratory : good bilateral air entry, no crackles, wheezes or rhonchi Gastrointestinal: soft, lax, Normal bowel sounds, Non tender Skin : Warm, Dry Neurological : Alert & oriented x3, No focal deficit DS: Data Data Completed and Pending Completed studies during hospitalization [Text1]: Procedures Assistance with Respiratory Ventilation, Less than 24 Consecutive Hours, Continuous Positive Airway Pressure (07/31/23) Performance of Urinary Filtration, Intermittent, Less than 6 Hours Per Day (04/04/24) Labs on day of discharge: Laboratory Results - last 24 hr 06/18/24 06/18/24 06/19/24 10:07 18:30 04:26 WBC 5.8 RBC 3.34 L Hgb 10.9 L Hct 32.1 L MCV 96.1 MCH 32.6 MCHC 34.0 RDW 13.0 Plt Count 183 MPV 9.3 L Immature Gran % (Auto) 0.2 Neut % (Auto) 62.9 Lymph % (Auto) 20.3 Cotton % (Auto) 9.5 Eos % (Auto) 5.9 H Baso % (Auto) 1.2 Lymph # (Auto) 1.2 Cotton # (Auto) 0.6 Eos # (Auto) 0.3 Baso # (Auto) 0.1 Abs Immat Gran (auto) 0.01 Absolute Neuts (auto) 3.6 Absolute Nucleated RBC 0.000 Nucleated RBC % (auto) 0.0 Sodium 136 134 L Potassium 4.7 D 5.2 H Chloride 99 97 Carbon Dioxide 25 25 Anion Gap 17 17 BUN 33 H 40 H Creatinine 5.69 H* 6.41 H* Estim Creat Clear Calc 10.9 9.7 Estimated GFR 10 9 Random Glucose 90 89 Calcium 9.8 8.7 D Magnesium 3.[address] scan - abdomen: Radiologist's impression: ITS Impressions Abdomen/Pelvis CT 06/18/24 10:20 IMPRESSION: 1. Ground glass opacities in the dependent left upper lobe are partially visualized, likely infectious/inflammatory etiology. 2. Diffuse pancreatic duct dilation measuring 0.7 cm, increased from 0.5 cm on prior. No pancreatic mass visualized on this noncontrast enhanced study. For further evaluation consider MRI/MRCP. 3. Polycystic renal disease with scattered calcifications. The dominant right lower pole cystic component which was previously a simple fluid attenuating now measures intermediate density. Consider ultrasound versus MRI/MRCP for further assessment. 4. Moderate scattered colonic diverticulosis without evidence of acute diverticulitis. 5. Prominent right iliac chain lymph node measuring up to 1.2 cm in short axis, nonspecific. Fleischner guidelines were followed. Electronically signed by: Irene Garzon DO 06/18/2024 05:36 PM [facility] Discharge Plan Discharge Anticipated Discharge Date/Time: 06/19/24 11:53 Patient Disposition: Home Health Service Discharge Diagnosis: Hyperkalemia Need of dialysis Referrals: Gerald Davis MD [Primary Care Provider] - 1 Week Discharge Medications: Continued metoprolol succinate 50 mg tablet extended release 24 hr 50 mg PO DAILY Qty: 90 3RF lisinopril 20 mg tablet 20 mg PO DAILY clonazepam 1 mg tablet 1 mg PO BID@1200,1900 cyanocobalamin (vitamin B-12) 1,000 mcg Tablet 1,000 mcg PO DAILY ascorbic acid (vitamin C) 500 mg Tablet 500 mg PO DAILY furosemide 80 mg tablet 80 mg PO SUTUTHSA oxcarbazepine 600 mg tablet 600 mg PO BID prochlorperazine maleate 5 mg tablet 5 mg PO BID albuterol sulfate [Ventolin HFA] 90 mcg/actuation HFA aerosol inhaler 2 puff INHALATION Q6H PRN (Reason: Shortness Of Breath Or Wheezing) vitamin B complex Tablet 1 tab PO DAILY meclizine 25 mg tablet 25 mg PO BID PRN (Reason: dizziness) lamotrigine [Lamictal] 100 mg Tablet 100 mg PO DAILY trazodone 50 mg tablet 50 mg PO BEDTIME clonazepam 1 mg tablet 0.5 mg PO DAILY Discharge Orders: Discharge Order (Routine); Ordered 06/19/24 Ordered By: Marino Butler Diet: Low salt diet Activity on Discharge: As tolerated Stand Alone Forms: Patient Portal Discharge page Print Language: Portuguese Other Ambulatory Orders: MR MRCP (Routine) Timeframe: 1 Week Facility: [facility] - Location: MRI Ordered By: Marino Butler Care Plan Goals: Continue dialysis as scheduled Continue home medications Follow up with PCP for an outpatient MRCP for further details over pancreatic duct and cystic changes in kidneys Health Concerns: Need of dialysis , Hyperkalemia Plan of Treatment: Dialysis Assessment: as above
[2024-06-19] MEDS: clonazePAM 1 MG TABLET PO (12:19)
--- NOTE | 2024-06-19 12:19 | W.MHC.F2F ---
Service Date Service Date: 06/19/24 Encounter Date of encounter: 06/19/24 Reasons for Services Signs and symptoms assessed: physical deconditioning Reason for physical therapy: home safety and mobility and therapeutic exercises Homebound: Leaving the home is medically contraindicated at this time without the asist of a device and/or another person due th the listed conditions above and below. Reason homebound: unsteady gait / fall risk Certification: Based on the above findings, I certify that this patient is confined to the home and needs intermittent long term care, physical therapy and/or speech therapy, or continues to need occupational therapy. The patient is under my care, and I have initiated the establishment of the plan of care. The patient will be followed by a physician who will periodically review the plan of care. Time Spent With Patient Time: Total time managing care of this patient today ____ minutes.
[2024-06-19] MEDS: Sodium Zirconium Cyclosilicate 10 GM POWD.PACK PO (14:01)
== END 2024-06-19 14:56 | disposition home health service (06) | DRG 640 ==
LOC: HO.ED 11:22 → HO.EDOVER 11:49
PROVIDERS: Admitting Provider Physician Assistant; Emergency Provider Emergency Medicine; PCP Family Medicine; Visit Provider Student in an Organized Health Care Education/Training Program
DX: E87.5 Hyperkalemia (principal); N18.6 End stage renal disease; I12.0 Hypertensive chronic kidney disease with stage 5 chronic kidney disease or end stage renal disease; I48.92 Unspecified atrial flutter; E85.4 Organ-limited amyloidosis; I43 Cardiomyopathy in diseases classified elsewhere; R19.7 Diarrhea, unspecified; K86.89 Other specified diseases of pancreas; N28.1 Cyst of kidney, acquired; G47.33 Obstructive sleep apnea (adult) (pediatric); Z66 Do not resuscitate; D63.1 Anemia in chronic kidney disease; J44.9 Chronic obstructive pulmonary disease, unspecified; Z99.2 Dependence on renal dialysis; Z79.899 Other long term (current) drug therapy
CPT/HCPCS: 36415; 74176; 80048; 80053; 83735; 85025; 90999; 93005; 97162; 99285

== ENCOUNTER → 2024-06-18 10:48 | Outpatient (BNV) | payer MEDICARE, OTHER, SELFPAY | PROVIDERS: Admitting Provider Physician Assistant; Emergency Provider Emergency Medicine; PCP Family Medicine; Visit Provider Internal Medicine Cardiovascular Disease | DX: E87.5 Hyperkalemia (principal) | CPT/HCPCS: 93010 ==

== ENCOUNTER → 2024-06-18 11:37 | Outpatient (BNV) | payer MEDICARE, OTHER, SELFPAY | PROVIDERS: Admitting Provider Physician Assistant; Emergency Provider Emergency Medicine; PCP Family Medicine; Visit Provider Physician Assistant | DX: E87.5 Hyperkalemia (principal); N18.6 End stage renal disease; Z99.2 Dependence on renal dialysis; R19.7 Diarrhea, unspecified | CPT/HCPCS: 99222; 99239; G0180 ==

== ENCOUNTER 2024-07-02 14:53 | Emergency (ER) | payer MEDICARE, OTHER, SELFPAY ==
[2024-07-02] VITALS (7 sets, daily range): BP systolic 114–148; BP diastolic 51–62; PULSE 52–80; RESP 13–16; TEMP 36.6–36.7; O2SAT 94–100; BMI 20.2
--- NOTE | ~2024-07-02 | XR_ITS ---
EXAMINATION: XR CHEST CLINICAL INFORMATION: pain COMPARISON: None available. TECHNIQUE: AP portable view of the chest was obtained. FINDINGS: Cardiac silhouette is prominent but likely magnified. Mediastinal and hilar contours appear normal. Lungs appear hyperaerated, however clear bilaterally. Increased markings in the right lower lobe are felt to represent overlapping rib and vascular structures. This is unchanged. Would correlate with auscultation in this region. There is no effusion or pneumothorax. Scoliosis and degenerative changes of the thoracolumbar spine. No soft tissue abnormalities. XR/XR chest 1V IMPRESSION: 1. COPD. 2. No definite superimposed active disease. Electronically signed by: Julio Cardenas MD 07/02/2024 04:43 PM EST RP
--- NOTE | 2024-07-02 15:12 | ECG_ITS ---
Test Reason : CHEST PAIN Blood Pressure : / mmHG Vent. Rate : 057 BPM Atrial Rate : 057 BPM P-R Int : 208 ms QRS Dur : 090 ms QT Int : 460 ms P-R-T Axes : 080 -11 084 degrees QTc Int : 447 ms Sinus bradycardia with Premature ventricular complexes Septal infarct (cited on or before 04-APR-2024) Abnormal ECG When compared with ECG of 18-JUN-2024 10:52, Premature ventricular complexes present Referred By: Jillian Encarnacion Electronically Signed By:SHERRIE HAWK
--- NOTE | 2024-07-02 15:23 | PC.NURSE ---
Pt. moved to ED bed 7
[2024-07-02 15:43] LABS: MANUAL DIFF FLAG NO
[2024-07-02 15:44] LABS: Basophils Absolute Auto 0.1 X10*3/uL (0.0-0.2); Basophils Percent Auto 1.6 % (0-2); Eosinophils Absolute Auto 0.2 X10*3/uL (0.0-0.4); Hematocrit 33.7 % (42.0-52.0); Hemoglobin 11.7 g/dl (14.0-18.0); Imm Gran Abs Auto 0.01 X10*3/uL (0.00-0.03); Imm Gran Pct Auto 0.2 % (0.0-0.4); Lymphocytes Absolute Auto 1.2 X10*3/uL (1.2-4.9); Lymphocytes Percent Auto 26.2 % (20-40); Mean Corpuscular HGB Conc 34.7 g/dl (31.0-36.0); Mean Corpuscular Hemoglobin 32.8 pg (27.0-33.0); Mean Corpuscular Volume 94.4 fL (80.0-98.0); Monocytes Absolute Auto 0.4 X10*3/uL (0.1-1.2); Monocytes Percent Auto 9.3 % (2-11); Neutrophils Absolute Auto 2.6 x10*3/uL (2.0-8.3); Neutrophils Percent Auto 57.7 % (45-73); Platelet Count 202 X10*3/uL (160-400); Red Blood Count 3.57 X10*6/uL (4.60-5.80); Red Cell Distribution Width 13.1 % (11.0-16.0); White Blood Count 4.4 X10*3/uL (4.8-10.8)
[2024-07-02 16:05] LABS: Troponin-I High Sensitivity 24.4 ng/L (<3.5-35.0)
[2024-07-02 16:06] LABS: Albumin Level 4.1 g/dL (3.5-5.0); Anion Gap 14 (12-20); Aspartate Amino Transferase 21 U/L (5-37); Bilirubin Total 0.4 mg/dL (0.0-1.0); Blood Urea Nitrogen 17 mg/dL (9-16); Calcium 9.4 mg/dL (8.4-10.2); Carbon Dioxide 37 mmol/L (22-29); Chloride 93 mmol/L (96-108); Estimated Glomerular Filt Rate 15; Glucose Random 93 mg/dL (60-115); Magnesium 2.2 mg/dL (1.6-2.6); Potassium 4.1 mmol/L (3.3-5.1); Sodium 140 mmol/L (135-145); Total Protein 6.5 g/dL (6.5-8.0)
--- NOTE | 2024-07-02 16:15 | ED.CHESTPAIN ---
HPI - Chest Pain General Chief Complaint: Chest Pain Stated Complaint: RS Chest pain post dialysis per ems Time Seen by Provider: 07/02/24 16:14 Source: patient Limitations: no limitations History of Present Illness ED Provider: Trish Nichols PA-C HPI narrative: 74-year-old male with a history of polycystic kidney disease now end-stage renal disease on hemodialysis, hypertension, cardiomyopathy, a flutter, ascending aortic aneurysm, COPD and mood disorder presents with chest pain. Patient was at dialysis when he developed central chest pressure. Patient initially stated that the discomfort was ?crushing?. It has since subsided, but is still present. Associated recent URI symptoms. Denies shortness of breath, fever, diaphoresis, nausea, vomiting. Related Data Home Medications ?Medication ?Instructions ?Recorded ?Confirmed ascorbic acid (vitamin C) 500 mg 500 mg PO DAILY 02/28/23 06/18/24 tablet clonazepam 1 mg tablet 1 mg PO BID@1200,1900 02/28/23 06/18/24 cyanocobalamin (vitamin B-12) 1,000 mcg PO DAILY 02/28/23 06/18/24 1,000 mcg tablet furosemide 80 mg tablet 80 mg PO SUTUTHSA 02/28/23 06/18/24 lisinopril 20 mg tablet 20 mg PO DAILY 02/28/23 06/18/24 oxcarbazepine 600 mg tablet 600 mg PO BID 02/28/23 06/18/24 prochlorperazine maleate 5 mg 5 mg PO BID 02/28/23 06/18/24 tablet albuterol sulfate 90 mcg/actuation 2 puff inhalation Q6H PRN 08/01/23 06/18/24 aerosol inhaler (Ventolin HFA) Shortness Of Breath Or Wheezing vitamin B complex 1 tab PO DAILY 08/01/23 06/18/24 lamotrigine 100 mg tablet 100 mg PO DAILY 04/04/24 06/18/24 (Lamictal) meclizine 25 mg tablet 25 mg PO BID PRN dizziness 04/04/24 06/18/24 clonazepam 1 mg tablet 0.5 mg PO DAILY 06/18/24 06/18/24 trazodone 50 mg tablet 50 mg PO BEDTIME 06/18/24 06/18/24 Previous Rx's ?Medication ?Instructions ?Recorded metoprolol succinate 50 mg 50 mg PO DAILY #90 tabs 06/11/24 tablet,extended release 24 hr Allergies Allergy/AdvReac Type Severity Reaction Status Date / Time bupropion [From WELLBUTRIN] AdvReac Unknown CONSTIPATIO Verified 07/02/24 16:32 N NSAIDS (Non-Steroidal AdvReac Unknown RENAL Verified 07/02/24 16:32 Anti-Inflamma [NSAIDS (NON-STEROIDAL ANTI-INFLAMMA] [id number] Reductase AdvReac Unknown UNK Verified 07/02/24 16:32 Inhibitor [[id number] REDUCTASE INHIBITOR] Review of Systems Review of Systems: Yes all other systems are reviewed and are negative Constitutional: Constitutional: Denies fatigue and Denies fever(s) ENT: Reports nasal discharge Cardiovascular: Cardiovascular: Reports chest pain and Denies dyspnea Respiratory: Respiratory: Denies cough and Denies dyspnea Gastrointestinal: Gastrointestinal: Denies abdominal pain, Denies nausea and Denies vomiting Endocrine: Endocrine: Denies fatigue PMFSH Past Medical History Attestation statement: The following information was validated with the patient. Medical History ESRD (end stage renal disease) on dialysis Anemia ESRD (end stage renal disease) CKD (chronic kidney disease) Hypoxia Atrial flutter Nicotine dependence, cigarettes, uncomplicated AV fistula Essential hypertension Mood disorder Effusion, pericardium Pleural effusion, left Chronic kidney 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 Surgical History History of colonoscopy History of hernia repair History of parathyroidectomy Social History Social History Household Members: None Housing: Condominium Do you presently have visiting nurse or other home services: Yes Alcohol intake: former Comment: patient refuses bed alarm, and refuses to wear non-skid red socks Patient Tobacco Use Status: Former Tobacco user Tobacco use type: Cigarette Cigarette Packs Per Day: 0.5 Cigarettes Per Day: 10.0 Years Smoked: 60 +/- Smoked in Last 30 Days: No e-Cigarette/Vaping Use: Currently Using Second Hand Smoke Exposure: Yes Use of substances other than those prescribed or required for medical reasons: No Advance Directives: Yes Advance Directives on File: Yes Advance Directives Date on File: 03/01/23 Do you have a plan to hurt others: No Plan service: No Physical Exam Vital Signs: Vital Signs: Last Vital Signs Temp 97 F 07/03/24 05:22 Pulse 59 07/03/24 05:22 Resp 16 07/03/24 05:22 BP 130/58 L 07/03/24 05:22 Pulse Ox 98 07/03/24 05:22 O2 Del Method Room Air 07/03/24 05:22 BMI result Body Mass Index 20.2 Const: Other: Alert, well-appearing Orientation/consciousness: patient oriented x3 Chest: Other: Chest discomfort reproducible with palpation of central chest wall, no deformity noted Resp: Other: Nonlabored respirations Cardio: Other: Normal peripheral perfusion Skin: Other: Warm dry no rash Neuro: General: patient oriented x3, no focal motor deficits and CN's II-XI intact bilaterally Psych: Other: Hostile belligerent at times Course Reevaluation(s) Reevaluation #1: At the time of discharge, the patient all of a sudden is indicating that he does not want to leave he wants to be admitted because he has an unstable gait, with chronic vertigo, and he does not feel safe at home. To note, the patient has been up to ambulate with his cane to the bathroom, he is not ataxic, he has not been complaining of dizziness, he is not nauseous, he has no nystagmus on exam. Patient never verbalize to anyone that he did not feel safe at home and that he was having difficulty managing his activities of daily living. The patient presented today with chest pain, his medical assessment has been negative. Will place a case management and PT consult now Time: 20:17 Reevaluation #2: We will be placing a care team consult. Brian from case management went to interview the patient, in discussion, the patient was more forthcoming about his concerns about himself. The patient states ?sometimes we just live too long, I do not have a life?. Patient is a verbalizing depression over his medical comorbidities, the fact that all he does is ?go to dialysis?. Time: 21:01 Reevaluation #3: Vital signs stable. No acute overnight events per nursing notes. Med rec has not yet been completed. Pharmacy to review medications. Physician observation continued pending care team and disposition. Time: 06:48 Medications Administered Discontinued Medications Generic Name Dose Route Start Last Admin Trade Name Ary PRN Reason Stop Dose Admin Acetaminophen 1,000 mg in 100 mls @ 400 mls/hr 07/02/24 16:24 07/02/24 17:41 Ofirmev IV 07/02/24 16:38 Infused ONCE ONE Infusion Medical Decision Making Medical Decision Making [facility] Narrative: 74-year-old male with a history of polycystic kidney disease now end-stage renal disease on hemodialysis, hypertension, cardiomyopathy, a flutter, ascending aortic aneurysm, COPD and mood disorder presents with chest pain. Patient was at dialysis when he developed central chest pressure. Patient initially stated that the discomfort was ?crushing?. It has since subsided, but is still present. Associated recent URI symptoms. Denies shortness of breath, fever, diaphoresis, nausea, vomiting. Problem: Age, end-stage renal, COPD History: Per patient I have considered the following differential diagnoses: ACS, viral syndrome, pneumonia, costochondritis, heart failure exacerbation Plan: ACS is considered, screening basic labs, cardiac enzyme, EKG and chest x-ray obtained from triage. His 1st troponin is indeterminate we will obtain another. Given Tylenol for his discomfort. Given concurrent URI symptoms, his discomfort could be costochondritis, the pain is reproducible to some degree with palpation of the chest wall. Thought about pneumonia, however he does not have a productive cough and is afebrile. Thought about heart failure exacerbation, however he is not complaining of shortness of breath, he is not overtly hypertensive, he is not hypoxic, we will obtain a BNP. I have independently reviewed the following tests: Labs: No leukocytosis, stable anemia, no electrolyte abnormality, creatinine 3.86, magnesium 2.2, troponin x2 are flat, BNP 583 EKG: Sinus bradycardia rate of 57, occasional PVCs noted, no ischemic changes, QTC 4 4/ Chest x-ray: XR/XR chest 1V IMPRESSION: 1. COPD. 2. No definite superimposed active disease. Lab Data 07/02/24 15:37 07/02/24 15:37 Labs: Lab Results 07/02/24 07/02/24 07/02/24 Range/Units 15:37 16:17 17:55 WBC 4.4 L (4.8-10.8) X10*3/uL RBC 3.57 L (4.60-5.80) X10*6/uL Hgb 11.7 L (14.0-18.0) g/dl Hct 33.7 L (42.0-52.0) % MCV 94.4 (80.0-98.0) fL MCH 32.8 (27.0-33.0) pg MCHC 34.7 (31.0-36.0) g/dl RDW 13.1 (11.0-16.0) % Plt Count 202 (160-400) X10*3/uL MPV 9.0 L (9.4-12.4) fL Immature Gran % (Auto) 0.2 (0.0-0.4) % Neut % (Auto) 57.7 (45-73) % Lymph % (Auto) 26.2 (20-40) % [place] % (Auto) 9.3 (2-11) % Eos % (Auto) 5.0 H (0-4) % Baso % (Auto) 1.6 (0-2) % Lymph # (Auto) 1.2 (1.2-4.9) X10*3/uL [place] # (Auto) 0.4 (0.1-1.2) X10*3/uL Eos # (Auto) 0.2 (0.0-0.4) X10*3/uL Baso # (Auto) 0.1 (0.0-0.2) X10*3/uL Abs Immat Gran (auto) 0.01 (0.00-0.03) X10*3/uL Absolute Neuts (auto) 2.6 (2.0-8.3) x10*3/uL Absolute Nucleated RBC 0.000 (0.0-0.012) X10*3/uL Nucleated RBC % (auto) 0.0 (0.0-0.2) /100WBC PT 14.4 H (10.9-12.4) SEC INR 1.2 H (0.9-1.1) Sodium 140 (135-145) mmol/L Potassium 4.1 D (3.3-5.1) mmol/L Chloride 93 L (96-108) mmol/L Carbon Dioxide 37 H (22-29) mmol/L Anion Gap 14 (12-20) BUN 17 H (9-16) mg/dL Creatinine 3.86 H (0.5-1.4) mg/dL Estim Creat Clear Calc TNP Estimated GFR 15 Random Glucose 93 (60-115) mg/dL Calcium 9.4 D (8.4-10.2) mg/dL Magnesium 2.2 (1.6-2.6) mg/dL Total Bilirubin 0.4 (0.0-1.0) mg/dL AST 21 (5-37) U/L ALT 17 (0-40) U/L Alkaline Phosphatase 65 (39-117) U/L Troponin I High Sens 24.4 24.0 (<3.5-35.0) ng/L B-Natriuretic Peptide 583 H (<100) pg/mL Total Protein 6.5 (6.5-8.0) g/dL Albumin 4.1 (3.5-5.0) g/dL Influenza Type A (PCR) NEGATIVE (Negative) Influenza Type B (PCR) NEGATIVE (Negative) RSV RNA Qual (PCR) NEGATIVE (Negative) SARS-CoV-2 RNA (RT-PCR) NEGATIVE (Negative) Discharge Plan Discharge Clinical Impression: Chest pain, Passive suicidal ideations Patient Disposition: Still a Patient Instructions: Noncardiac Chest Pain (ED) Additional Instructions: All of your screening labs including 2 cardiac enzymes were normal, there were no concerning changes on your EKG in your chest x-ray is clear. Given concurrent viral symptoms, you may have what is called costochondritis, an inflammation of the cartilage is between your ribs. You can use [id number] Tylenol to manage your discomfort, 1000 mg taken every 8 hours. Follow up with your primary care provider as needed. Prescriptions: No Action metoprolol succinate 50 mg tablet extended release 24 hr 50 mg PO DAILY Qty: 90 3RF lisinopril 20 mg tablet 20 mg PO DAILY clonazepam 1 mg tablet 1 mg PO BID@1200,1900 cyanocobalamin (vitamin B-12) 1,000 mcg Tablet 1,000 mcg PO DAILY ascorbic acid (vitamin C) 500 mg Tablet 500 mg PO DAILY furosemide 80 mg tablet 80 mg PO SUTUTHSA oxcarbazepine 600 mg tablet 600 mg PO BID prochlorperazine maleate 5 mg tablet 5 mg PO BID albuterol sulfate [Ventolin HFA] 90 mcg/actuation HFA aerosol inhaler 2 puff INHALATION Q6H PRN (Reason: Shortness Of Breath Or Wheezing) vitamin B complex Tablet 1 tab PO DAILY meclizine 25 mg tablet 25 mg PO BID PRN (Reason: dizziness) lamotrigine [Lamictal] 100 mg Tablet 100 mg PO DAILY trazodone 50 mg tablet 50 mg PO BEDTIME clonazepam 1 mg tablet 0.5 mg PO DAILY Print Language: Frisian
[2024-07-02 16:16] LABS: Alanine Aminotransferase 17 U/L (0-40); Alkaline Phosphatase 65 U/L (39-117)
[2024-07-02 16:30] LABS: INTERNATIONAL NORM RATIO 1.2 (0.9-1.1); Prothrombin Time 14.4 SEC (10.9-12.4)
--- OUTSIDE RECORDS SUMMARY | 2024-07-02 16:38 | XMS_ITS | Continuity of Care Document ---
Author Organization [facility] Ilya Chip lt Address [address] [place] [address]- Care Team Providers Care Physician Relations Specialist Name Role Phone Susan SOLORIO, Gerald Sandra Primary Care Physician Encounter [facility] Date(s): 05/25/24 - 06/24/24 [facility] Adult [address] [place] [address]- Encounter Type: Triage Allergies, Adverse Reactions, Alerts Substance Criticality Severity Reaction Reaction Severity Status ibuprofen decrease kidney function Active Zocor headaches simvastatin Active Wellbutrin severe constipation Active statins headache Active NSAIDs harms kidney f unction kidneys Active Immunizations Given and Recorded Vaccine Date Status Refusal Reason SARS-CoV-2(COVID-19)mRNA-LNP vac([id number]) 07/06/23 Recorded influenza virus vaccine, inactivated 04/18/23 Arsenio rded influenza virus vaccine, inactivated 04/11/22 Arsenio rded influenza virus vaccine, inactivated 05/07/21 Give n influenza virus vaccine, inactivated 04/14/21 Arsenio rded influenza virus vaccine, inactivated 1 04/11/18 Re corded influenza virus vaccine, inactivated 2 05/12/17 Gi paulo influenza virus vaccine, inactivated 05/03/16 Give n influenza virus vaccine, inactivated 3 05/15/15 Re corded influenza virus vaccine, inactivated 4 09/25/14 Gi paulo influenza virus vaccine, inactivated 5 04/28/12 Gi paulo SARS-CoV-2 (COVID-19) mRNA-1273 vaccine 06/30/21 R ecorded SARS-CoV-2 (COVID-19) mRNA-1273 vaccine 10/08/20 R ecorded SARS-CoV-2 (COVID-19) mRNA-1273 vaccine 08/27/20 R ecorded pneumococcal 13-valent vaccine 09/26/15 Given pneumococcal 23-valent vaccine 6 09/25/14 Given tetanus/diphtheria/pertussis, acel(Tdap) 12/24/10 Given tetanus-diphtheria toxoids (Td) 07/18/99 Given 1[facility] History[facility] 2Result Comment: [05/12/2017] [facility] [id number] HIGH DOSE NOT IN SUPPLY . REGULAR DOSE GIVEN TO PT PER DR THOMPSON AND PER PT REQUEST 3Result Comment: [05/23/2015] [facility] 4Admin Note: declined 5Admin Note: Declined 6Admin Note: DECLINED Medications B-12 0 Refills, Maintenance, 02/20/24 8:19:00 AM EDT, Partial fill upon patient request if the prescription is for a schedule II opioid drug. Start Date: 02/20/24 Status: Ordered Repeat number: 1 clonazePAM 1 mg oral tablet 3 times a day, 0 Refills, Maintenance, 09/26/15 11:02:33 AM EST Start Date: 09/26/15 Status: Ordered Repeat number: 1 cyclobenzaprine 5 mg oral tablet See Instructions, TAKE 1 TABLET BY MOUTH 2 TIMES A DAY NEEDED FOR MUSCLE SPASM,INSTR:DO NOT TAKEIF SEDATED., # 10 tablet, 0 Refills, Maintenance, 10/14/23 12:13:00 PM EDT, [id number], 172.2, cm, 10/13/23 15:50:00 EDT, Height, 67.4, kg, 08/03/22 7:05:00 EST, Dry Weight Start Date: 10/14/23 Status: Ordered Quantity: 10.0 Unit: tablet Repeat number: 1 furosemide 80 mg oral tablet 80 mg, 1, tablet, By Mouth, Daily, on non dialysis days, Refills 0, Maintenance, 02/01/23 2:51:00 PMEDT, Partial fill upon patient request if the prescription is for a schedule II opioid drug. Start Date: 02/01/23 Status: Ordered Repeat number: 1 LaMICtal 25 mg oral tablet 75 mg, 3, tablet, By Mouth, Daily, Refills 0, Maintenance, 02/01/23 2:51:00 PM EDT, Partial fill upon patient request if the prescription is for a schedule II opioid drug. Start Date: 02/01/23 Status: Ordered Repeat number: 1 Lipitor 10 mg oral tablet 1 tablet = 10 mg, By Mouth, Daily, 0 Refills, Maintenance, 02/17/24 11:33:00 AM EDT, Partial fill upon patient request if the prescription is for a schedule II opioid drug. Start Date: 02/17/24 Status: Ordered Repeat number: 1 lisinopril 20 mg oral tablet 20 mg, 1, tablet, By Mouth, Daily, # 30 tablet, Refills 0, Tot. Refills 0, Maintenance, 11/05/21 11:43:00 AM EDT, Do Not Route, Partial fill upon patient request if the prescription is for a schedule II opioid drug. Start Date: 11/05/21 Status: Ordered Quantity: 30.0 Unit: tablet Repeat number: 1 metoprolol 25 mg oral tablet 25 mg, 1, tablet, By Mouth, Daily at bedtime, Refills 0, Maintenance, 06/21/23 11:34:00 AM EST, Partial fill upon patient request if the prescription is for a schedule II opioid drug. Start Date: 06/21/23 Status: Ordered Repeat number: 1 Misc Rx See Instructions, Refills 0, Maintenance, vitamin b-12, 03/15/23 2:07:00 PM EDT, Supply Start Date: 03/15/23 Status: Ordered Repeat number: 1 OXcarbazepine 300 mg oral tablet 300 mg, 1, tablet, By Mouth, 2 times a day, # 60 tablet, Refills 0, Tot. Refills 0, Maintenance, 11/05/21 5:46:00 PM EDT, Do Not Route, Partial fill upon patient request if the prescription is for a schedule II opioid drug. Start Date: 11/05/21 Status: Ordered Quantity: 60.0 Unit: tablet Repeat number: 1 prochlorperazine 5 mg oral tablet 1 tablet = 5 mg, By Mouth, 2 times a day, # 14 tablet, 0 Refills, Maintenance, 03/05/21 8:21:00 AM EDT, Tablet, Partial fill upon patient request if the prescription is for a schedule II opioid drug. Start Date: 03/05/21 Status: Ordered Quantity: 14.0 Unit: tablet Repeat number: 1 Sodium Polystyrene Sulfonate = 14 Gm, sodium polystrene powder take on non dialysis days, 0 Refills, Maintenance, 02/01/23 2:52:00 PM EDT, Partial fill upon patient request if the prescription is for a schedule II opioid drug. Start Date: 02/01/23 Status: Ordered Repeat number: 1 Trazodone By Mouth, Daily at bedtime, 0 Refills, Maintenance, 02/17/24 11:34:00 AM EDT, Partial fill upon patient request if the prescription is for a schedule II opioid drug. Start Date: 02/17/24 Status: Ordered Repeat number: 1 Tylenol Extra Strength 500 mg oral tablet = 600 mg, By Mouth, as needed, per pt. on 04/25/2019., 0 Refills, Maintenance, 07/06/16 10:05:08 AM EST Start Date: 07/06/16 Status: Ordered Repeat number: 1 Vitamin B-50 oral tablet 1 tablet, By Mouth, Daily, 0 Refills, Maintenance, 03/15/23 2:07:00 PM EDT, Partial fill upon patient request if the prescription is for a schedule II opioid drug. Start Date: 03/15/23 Status: Ordered Repeat number: 1 Vitamin C 500 mg oral tablet 1 tablet = 500 mg, By Mouth, Daily, # 30 tablet, 0 Refills, Maintenance, 05/07/21 11:34:00 AM EDT, Tablet, Partial fill upon patient request if the prescription is for a schedule II opioid drug. Start Date: 05/07/21 Status: Ordered Quantity: 30.0 Unit: tablet Repeat number: 1 Vitamin D2 By Mouth, 0 Refills, Maintenance, 03/15/23 2:07:00 PM EDT, Partial fill upon patient request if the prescription is for a schedule II opioid drug. Start Date: 03/15/23 Status: Ordered Repeat number: 1 Problem List Condition Confirmation Course Effective Dates Status Health Status Informant Centrilobular emphysema Confirmed Active Chronic bronchitis Confirmed Active Chronic low back pain Confirmed Active COPD (chronic obstructive pulmonary disease) Confirmed Active Abnormal head CT 1 Confirmed Active Depression Confirmed Active Aortic dilatation Confirmed Active Eczema Confirmed Active End stage renal disease 2 Confirmed Active Hypercholesterolemia Confirmed Active Hypertension Confirmed Active Major depression(HCC) Confirmed Active Multiple pulmonary nodules Confirmed Active Obstructive sleep apnea syndrome Confirmed Active OA (osteoarthritis) of knee Confirmed Active Prolonged QT interval 3 Confirmed Active Radiology result abnormal-pulm nodule stable 3 yrs Confirmed Active Cigarette nicotine dependence with nicotine-induced disorder Confirmed Active 1Chronic white matter small vessel ischemic changes 08/04/2023 outside record 2[facility] [phone] phone M-W-F 2nd shift 3external EKG from 07/31/2023 Social History Social History Type Response Tobacco Other: quit 06/26/23 . Sex Sex Representation Male (finding) Patient Care team information Care Team Personnel Name: Colette Dillard Position: [facility] Outreach Member Role: Lifetime Consulting Physician Name: Vivi Ty Position: [facility] Outreach Member Role: Lifetime Consulting Physician Name: Susan SOLORIO, Gerald Sandra Position: [facility] Physician - Primary Care Member Role: PCP Address: [address] [place] [phone]- Telecom: Name: Sarah Santoro Position: [facility] AMB Nurse Member Role: Lifetime Consulting Physician Name: Annalisa Daniels RN Position: [facility] RN Member Role: Primary Care Nurse Name: Dione Becker Position: [facility] [place] Occupational Therapy Director Member Role: Damage Assessor Care Team Related Persons Name: ZACH NARAYANAN Insurance Providers Guarantor name: LUIS NARAYANAN Health Plan Information #: 1 Payer: MEDICARE PART B OUTPT Member Number: NA Policy Number: NA Group Number: NA Health Plan Information #: 2 Payer: [facility] Member Number: NA Policy Number: NA Group Number: NA
--- OUTSIDE RECORDS SUMMARY | 2024-07-02 16:38 | XMS_ITS | Clinical Summary ---
Author Organization Unknown Care Team Providers Care [employer] Foreign [employer] Tutor Name Role Phone JAY SOLORIO, ANANT Unavailable Unavailable LEONOR RN, PAT Unavailable Unavailable YIMI PT, MACRINA Unavailable Unavailable [employer] MINIATURE SET CONSTRUCTOR, SULAIMAN Unavailable Unavailable Payers Payer Name Policy Type Policy Number Effective Date Expira tion Date [place]IC[place] - [place] [id number] Problems Condition Name Condition Details Condition Category Status Onset Date Resolution Date Last Treatment Date Treating Clinician Comments SEPSIS, UNSPECIFIED ORGANISM Active 03-05 00:00: 00 PNEUMONIA, UNSPECIFIED ORGANISM Active 03-05 00:00: 00 HYP CHR KIDNEY DISEASE W STAGE 5 CHR KIDNEY DISEASE OR ESRD Active 03-05 00:00: 00 END STAGE RENAL DISEASE Active 03-05 00:00: 00 ANEMIA IN CHRONIC KIDNEY DISEASE Active 03-05 00:00: 00 UNSPECIFIED ATRIAL FLUTTER Active 03-05 00:00: 00 ACUTE RESPIRATORY FAILURE WITH HYPOXIA Active 03-05 00:00: 00 DEPRESSION, UNSPECIFIED Active 03-05 00:00: 00 UNSPECIFIED MOOD [AFFECTIVE] DISORDER Active 03-05 00:00: 00 UNSPECIFIED OSTEOARTHRIT IS, UNSPECIFIED SITE Active 03-05 00:00: 00 PERSONAL HISTORY OF URINARY (TRACT) INFECTIONS Active 03-05 00:00: 00 DEPENDENCE ON RENAL DIALYSIS Active 03-05 00:00: 00 HISTORY OF FALLING Active 03-05 00:00: 00 SKILLED NURSING (CURRENT) USE OF SYSTEMIC STEROIDS Active 03-05 00:00: 00 PRIMARY OSTEOARTHRIT IS, UNSPECIFIED SITE Active 03-10 00:00: 00 Allergies, Adverse Reactions, Alerts Allergy Name Allergy Type Status Severity Reaction(s) Onset Date Inactive Date Treating Clinician Comments NSAIDS Propensity to adverse reactions Active 03-05 20:47: 58 STATINS Propensity to adverse reactions Active 03-05 20:48: 09 BUPROPRION Propensity to adverse reactions Active 03-05 20:48: 39 Medications Ordered Medication Name Filled Medication Name Start Date Stop Date Current Medication? Ordering Clinician Indication Dosage Frequency Signature (SIG) Comments Components amoxicillin 500 mg-potassiu m clavulanate 125 mg tablet 03-03 00:00: 00 03-08 23:59 :00 No [id number] 1 tablet DAILY 1 tablet DAILY (route: oral) Med Classific ation: Anti-Infe ctive Agents prednisone 10 mg tablet 03-03 00:00: 00 03-14 23:59 :00 No [id number] Per instruc tions DAILY Per instructio ns DAILY (route: oral) Med Classific ation: Endocrine sodium polystyrene sulfonate oral powder 02-14 00:00: 00 07-31 23:59 :00 No [id number] Per instruc tions 4 LEVEL TEASPOONFU LS (15GM) IN WATER AND DRINK 4 TIMES A WEEK ON NON - DIALYSIS DAYS Per instructio ns 4 LEVEL TEASPOONFU LS (15GM) IN WATER AND DRINK 4 TIMES A WEEK ON NON - DIALYSIS DAYS (route: oral) Med Classific ation: Electroly te Balance-N utritiona l Products lisinopril 20 mg tablet 02-11 00:00: 00 07-31 23:59 :00 No [id number] 1 tablet DAILY 1 tablet DAILY (route: oral) Med Classific ation: Cardiovas cular Therapy Agents oxcarbazepi ne 600 mg tablet 02-11 00:00: 00 07-31 23:59 :00 No [id number] 1 tablet TWICE A DAY 1 tablet TWICE A DAY (route: oral) Med Classific ation: Central Nervous System Agents ergocalcife rol (vitamin D2) 1,250 mcg (50,000 unit) capsule 02-07 00:00: 00 07-31 23:59 :00 No [id number] 1 capsule MONTHLY 1 capsule MONTHLY (route: oral) Med Classific ation: Electroly te Balance-N utritiona l Products lamotrigine 25 mg tablet 02-05 00:00: 00 07-31 23:59 :00 No [id number] 3 tablet DAILY 3 tablet DAILY (route: oral) Med Classific ation: Central Nervous System Agents ascorbic acid (vitamin C) 500 mg tablet 03-05 00:00: 00 07-31 23:59 :00 No [id number] 1 tablet DAILY 1 tablet DAILY (route: oral) Med Classific ation: Electroly te Balance-N utritiona l Products clonazepam 1 mg tablet 03-05 00:00: 00 07-31 23:59 :00 No [id number] 1 tablet 3 TIMES DAILY 1 tablet 3 TIMES DAILY (route: oral) Med Classific ation: Central Nervous System Agents cyanocobala min (vit B-12) 1,000 mcg tablet 03-05 00:00: 00 07-31 23:59 :00 No [id number] 1 tablet DAILY 1 tablet DAILY (route: oral) Med Classific ation: Electroly te Balance-N utritiona l Products prochlorper azine maleate 5 mg tablet 03-05 00:00: 00 07-31 23:59 :00 No [id number] 1 tablet 2 TIMES DAILY 1 tablet 2 TIMES DAILY (route: oral) Med Classific ation: Gastroint estinal Therapy Agents trazodone 50 mg tablet 03-05 00:00: 00 07-31 23:59 :00 No [id number] 1 tablet BEDTIME 1 tablet BEDTIME (route: oral) Med Classific ation: Central Nervous System Agents Immunizations Ordered Immunization Name Filled Immunization Name Date Status Comments Refusal Reason PNEUMOCOCCAL (PPV), PPV 2022-10-25 00:00:00 INFLUENZA, TIV (INACTIVATED) 2022-08-02 00:00:00 COVID-19, COVID-19 2022-07-26 00:00:00 Vital Signs Vital Name Observation Time Observation Value Commen ts Temperature 2023-04-26 17:37:00.000 97 [degF] Temperature 2023-04-21 18:37:00.000 97 [degF] Temperature 2023-04-12 19:11:00.000 98 [degF] Temperature 2023-04-04 08:23:00.000 99 [degF] Temperature 2023-03-29 14:55:00.000 97 [degF] Temperature 2023-03-24 15:25:00.000 98.6 [degF] Temperature 2023-03-14 08:07:00.000 97.2 [degF] Temperature 2023-03-10 10:25:00.000 98 [degF] Temperature 2023-03-08 09:23:00.000 98.7 [degF] Temperature 2023-03-05 09:13:00.000 98.6 [degF] BMI (%) 2023-03-05 09:13:00.000 20 kg/m2 Height 2023-03-05 09:13:00.000 71 [in_us] Pulse 2023-04-26 17:37:00.000 70 /min Pulse 2023-04-21 18:37:00.000 76 /min Pulse 2023-04-12 19:11:00.000 76 /min Pulse 2023-04-04 08:23:00.000 73 /min Pulse 2023-03-29 14:55:00.000 74 /min Pulse 2023-03-24 15:25:00.000 80 /min Pulse 2023-03-14 08:07:00.000 72 /min Pulse 2023-03-10 10:25:00.000 76 /min Pulse 2023-03-08 09:23:00.000 60 /min Pulse 2023-03-05 09:13:00.000 60 /min O2 Saturation (%) 2023-04-26 17:37:00.000 97 % O2 Saturation (%) 2023-04-21 18:37:00.000 99 % O2 Saturation (%) 2023-04-12 19:11:00.000 97 % O2 Saturation (%) 2023-04-04 08:23:00.000 98 % O2 Saturation (%) 2023-03-29 14:55:00.000 97 % O2 Saturation (%) 2023-03-24 15:25:00.000 96 % O2 Saturation (%) 2023-03-14 08:07:00.000 100 % O2 Saturation (%) 2023-03-10 10:25:00.000 97 % O2 Saturation (%) 2023-03-08 09:23:00.000 98 % O2 Saturation (%) 2023-03-05 09:13:00.000 98 % Pain 2023-04-26 17:37:00.000 0 Pain 2023-04-21 18:37:00.000 0 Pain 2023-04-12 19:11:00.000 0 Pain 2023-04-04 08:23:00.000 0 Pain 2023-03-29 14:55:00.000 0 Pain 2023-03-24 15:25:00.000 2 Pain 2023-03-14 08:07:00.000 5 Pain 2023-03-10 10:25:00.000 6 Pain 2023-03-08 09:23:00.000 0 Pain 2023-03-05 09:13:00.000 5 Respirations 2023-04-26 17:37:00.000 18 /min Respirations 2023-04-21 18:37:00.000 18 /min Respirations 2023-04-12 19:11:00.000 18 /min Respirations 2023-04-04 08:23:00.000 18 /min Respirations 2023-03-29 14:55:00.000 18 /min Respirations 2023-03-24 15:25:00.000 18 /min Respirations 2023-03-14 08:07:00.000 18 /min Respirations 2023-03-10 10:25:00.000 18 /min Respirations 2023-03-08 09:23:00.000 20 /min Respirations 2023-03-05 09:13:00.000 20 /min Weight (kgs) 2023-03-14 08:07:00.000 66 Weight (kgs) 2023-03-05 09:13:00.000 66 Systolic Blood Pressure 2023-04-26 17:37:00.000 126 mm [Hg] Systolic Blood Pressure 2023-04-21 18:37:00.000 124 mm [Hg] Systolic Blood Pressure 2023-04-12 19:11:00.000 128 mm [Hg] Systolic Blood Pressure 2023-04-04 08:23:00.000 130 mm [Hg] Systolic Blood Pressure 2023-03-29 14:55:00.000 134 mm [Hg] Systolic Blood Pressure 2023-03-24 15:25:00.000 122 mm [Hg] Systolic Blood Pressure 2023-03-14 08:07:00.000 138 mm [Hg] Systolic Blood Pressure 2023-03-10 10:25:00.000 150 mm [Hg] Systolic Blood Pressure 2023-03-08 09:23:00.000 138 mm [Hg] Systolic Blood Pressure 2023-03-05 09:13:00.000 122 mm [Hg] Diastolic Blood Pressure 2023-04-26 17:37:00.000 64 mm [Hg] Diastolic Blood Pressure 2023-04-21 18:37:00.000 62 mm [Hg] Diastolic Blood Pressure 2023-04-12 19:11:00.000 70 mm [Hg] Diastolic Blood Pressure 2023-04-04 08:23:00.000 80 mm [Hg] Diastolic Blood Pressure 2023-03-29 14:55:00.000 70 mm [Hg] Diastolic Blood Pressure 2023-03-24 15:25:00.000 64 mm [Hg] Diastolic Blood Pressure 2023-03-14 08:07:00.000 62 mm [Hg] Diastolic Blood Pressure 2023-03-10 10:25:00.000 80 mm [Hg] Diastolic Blood Pressure 2023-03-08 09:23:00.000 72 mm [Hg] Diastolic Blood Pressure 2023-03-05 09:13:00.000 80 mm [Hg] Plan of Treatment Planned Activity Planned Date Details Comments Future Scheduled Test SKILLED NU RSE TO EVALUATE PATIENT, IDENTIFY PRIMARY AND CO-MORBID CONDITIONS CODED PER CODING GUIDELINES, AND DEVELOP PATIENT SPECIFIC PLAN OF CARE THAT INCLUDES PATIENT GOAL FOR HOME HEALTH. [code = SKILLED NURSE TO EVALUATE PATIENT, IDENTIFY PRIMARY AND CO-MORBID CONDITIONS CODED PER CODING GUIDELINES, AND DEVELOP PATIENT SPECIFIC PLAN OF CARE THAT INCLUDES PATIENT GOAL FOR HOME HEALTH.] Future Scheduled Test SKILLED NU RSE TO REVIEW PATIENT MEDICATIONS. INSTRUCT PATIENT/CAREGIVER ON MONITORING OF EFFECTIVENESS, ADVERSE DRUG REACTIONS, SIDE EFFECTS OF ALL MEDICATIONS (PRESCRIPTION/-OTC), AND HOW AND WHEN TO REPORT PROBLEMS. [code = SKILLED NURSE TO REVIEW PATIENT MEDICATIONS. INSTRUCT PATIENT/CAREGIVER ON MONITORING OF EFFECTIVENESS, ADVERSE DRUG REACTIONS, SIDE EFFECTS OF ALL MEDICATIONS (PRESCRIPTION/-OTC), AND HOW AND WHEN TO REPORT PROBLEMS.] Future Scheduled Test SKILLED NU RSE TO ASSESS ANXIETY AND PROVIDE ASSISTANCE TO PATIENT FOR UNDERSTANDING AND MANAGEMENT OF FEELINGS. [code = SKILLED NURSE TO ASSESS ANXIETY AND PROVIDE ASSISTANCE TO PATIENT FOR UNDERSTANDING AND MANAGEMENT OF FEELINGS.] Future Scheduled Test SKILLED NU RSE MAY PERFORM URINE REAGENT STRIP TESTING AND/OR UA CS 1-3 PRN IF INDICATED FOR SIGNS AND SYMPTOMS OF UTI. IF POSITIVE REAGENT STRIP TEST RESULTS, SKILLED NURSE TO COLLECT URINE SAMPLE FOR UA CS AND REPORT RESULTS TO PHYSICIAN. [code = SKILLED NURSE MAY PERFORM URINE REAGENT STRIP TESTING AND/OR UA CS 1-3 PRN IF INDICATED FOR SIGNS AND SYMPTOMS OF UTI. IF POSITIVE REAGENT STRIP TEST RESULTS, SKILLED NURSE TO COLLECT URINE SAMPLE FOR UA CS AND REPORT RESULTS TO PHYSICIAN.] Future Scheduled Test SKILLED NU RSE FOR O/A, TEACHING, AND MANAGEMENT OF A FLUTTER [code = SKILLED NURSE FOR O/A, TEACHING, AND MANAGEMENT OF A FLUTTER] Future Scheduled Test SKILLED NU RSE FOR O/A, TEACHING AND MANAGEMENT OF ESRD FOR EARLY IDENTIFICATION OF EXACERBATION OF DISEASE PROCESS [code = SKILLED NURSE FOR O/A, TEACHING AND MANAGEMENT OF ESRD FOR EARLY IDENTIFICATION OF EXACERBATION OF DISEASE PROCESS] Future Scheduled Test MEDICAL SO CIAL WORKER TO EVALUATE PATIENT FOR COMMUNITY RESOURCES [code = BOTTOMER OPERATOR TO EVALUATE PATIENT FOR COMMUNITY RESOURCES ] Future Scheduled Test SKILLED NU RSE FOR O/A RELATED TO SIGNS AND SYMPTOMS OF INFECTION AND TO PROVIDE TEACHING REGARDING INFECTION CONTROL MEASURES R/T PNA, SEPSIS, HX UTI. [code = SKILLED NURSE FOR O/A RELATED TO SIGNS AND SYMPTOMS OF INFECTION AND TO PROVIDE TEACHING REGARDING INFECTION CONTROL MEASURES R/T PNA, SEPSIS, HX UTI.] Future Scheduled Test SKILLED NU RSE FOR O/A OF OA AND TEACHING ON MEASURES TO MANAGE AND MAINTAIN SAFETY WITH ACTIVITY [code = SKILLED NURSE FOR O/A OF OA AND TEACHING ON MEASURES TO MANAGE AND MAINTAIN SAFETY WITH ACTIVITY] Future Scheduled Test PHYSICAL T HERAPIST TO EVALUATE PATIENT FOR PHYSICAL THERAPY [code = PHYSICAL THERAPIST TO EVALUATE PATIENT FOR PHYSICAL THERAPY ] Future Scheduled Test SKILLED NU RSE TO ASSESS AV SHUNT SITE AND INSTRUCT PATIENT/CAREGIVER ON S/S COMPLICATIONS TO REPORT. NO BLOOD PRESSURE OR VENIPUNCTURE IN L ARM [code = SKILLED NURSE TO ASSESS AV SHUNT SITE AND INSTRUCT PATIENT/CAREGIVER ON S/S COMPLICATIONS TO REPORT. NO BLOOD PRESSURE OR VENIPUNCTURE IN L ARM] Future Scheduled Test VIRTUAL SIT FREQUENCY: 1-6 PER WEEK X 2 WEEKS AND 6 PRN VIRTUAL VISITS MAY BE PERFORMED UTILIZING TELECOMMUNICATIONS SYSTEM TO OPTIMIZE SKILLED SERVICES FURNISHED ON THE PLAN OF CARE. SKILLED NURSE TO ESTABLISH SUPPORT MEASURES TO MINIMIZE RISK OF REHOSPITALIZATION, AND INSTRUCT PATIENT/CAREGIVER ON METHODS TO REDUCE AVOIDABLE HOSPITALIZATION. [code = VIRTUAL VISIT FREQUENCY: 1-6 PER WEEK X 2 WEEKS AND 6 PRN VIRTUAL VISITS MAY BE PERFORMED UTILIZING TELECOMMUNICATIONS SYSTEM TO OPTIMIZE SKILLED SERVICES FURNISHED ON THE PLAN OF CARE. SKILLED NURSE TO ESTABLISH SUPPORT MEASURES TO MINIMIZE RISK OF REHOSPITALIZATION, AND INSTRUCT PATIENT/CAREGIVER ON METHODS TO REDUCE AVOIDABLE HOSPITALIZATION.] Future Scheduled Test PATIENT VITALE S A RISK OF HOSPITALIZATION AND ED USE. SKILLED NURSE TO ESTABLISH SUPPORT MEASURES TO MINIMIZE RISK OF HOSPITALIZATION AND ED USE, AND INSTRUCT PATIENT/CAREGIVER ON METHODS TO REDUCE AVOIDABLE HOSPITALIZATION AND ED USE. [code = PATIENT HAS A RISK OF HOSPITALIZATION AND ED USE. SKILLED NURSE TO ESTABLISH SUPPORT MEASURES TO MINIMIZE RISK OF HOSPITALIZATION AND ED USE, AND INSTRUCT PATIENT/CAREGIVER ON METHODS TO REDUCE AVOIDABLE HOSPITALIZATION AND ED USE.] Future Scheduled Test SKILLED NU RSE TO PROVIDE INSTRUCTION TO PATIENT/CAREGIVER RELATED TO DISCHARGE PLANNING. [code = SKILLED NURSE TO PROVIDE INSTRUCTION TO PATIENT/CAREGIVER RELATED TO DISCHARGE PLANNING.] Future Scheduled Test SKILLED NU RSE TO PERFORM HOME SAFETY AND FALL ASSESSMENT AND PROVIDE INSTRUCTION TO IMPLEMENT HOME SAFETY AND FALL PREVENTION STRATEGIES. [code = SKILLED NURSE TO PERFORM HOME SAFETY AND FALL ASSESSMENT AND PROVIDE INSTRUCTION TO IMPLEMENT HOME SAFETY AND FALL PREVENTION STRATEGIES.] Future Scheduled Test SKILLED NU RSE FOR OBSERVATION AND ASSESSMENT OF PATIENTS PAIN LEVEL AND EFFECTIVENESS OF PAIN MANAGEMENT REGIMEN. SKILLED NURSE TO INSTRUCT PATIENT/CAREGIVER REGARDING PHARMACOLOGIC AND NON-PHARMACOLOGIC PAIN CONTROL MEASURES. SKILLED NURSE TO REPORT TO PHYSICIAN IF PAIN IS UNCONTROLLED WITH CURRENT PAIN MANAGEMENT REGIMEN. [code = SKILLED NURSE FOR OBSERVATION AND ASSESSMENT OF PATIENTS PAIN LEVEL AND EFFECTIVENESS OF PAIN MANAGEMENT REGIMEN. SKILLED NURSE TO INSTRUCT PATIENT/CAREGIVER REGARDING PHARMACOLOGIC AND NON-PHARMACOLOGIC PAIN CONTROL MEASURES. SKILLED NURSE TO REPORT TO PHYSICIAN IF PAIN IS UNCONTROLLED WITH CURRENT PAIN MANAGEMENT REGIMEN.] Future Scheduled Test SKILLED NU RSE TO ASSESS PATIENT'S SKIN INTEGRITY AND INSTRUCT PATIENT/CAREGIVER ON MEASURES TO PREVENT PRESSURE ULCERS. [code = SKILLED NURSE TO ASSESS PATIENT'S SKIN INTEGRITY AND INSTRUCT PATIENT/CAREGIVER ON MEASURES TO PREVENT PRESSURE ULCERS.] Future Scheduled Test SKILLED NU RSE TO PROVIDE ASSESSMENT AND TEACHING/REINFORCEMENT OF MANAGEMENT OF DEPRESSION INCLUDING DISEASE PROCESS, MEDICATION MANAGEMENT, COPING SKILLS AND IDENTIFY CHANGES ASSOCIATED WITH DEPRESSIVE DISORDERS FOR EARLY INTERVENTION. [code = SKILLED NURSE TO PROVIDE ASSESSMENT AND TEACHING/REINFORCEMENT OF MANAGEMENT OF DEPRESSION INCLUDING DISEASE PROCESS, MEDICATION MANAGEMENT, COPING SKILLS AND IDENTIFY CHANGES ASSOCIATED WITH DEPRESSIVE DISORDERS FOR EARLY INTERVENTION.] Future Scheduled Test MEDICAL SO CIAL SERVICES FOR EVALUATION TO ASSESS SOCIAL AND EMOTIONAL FACTORS RELATED TO THE PATIENT'S ILLNESS, NEED FOR CARE, RESPONSE TO TREATMENT AND ADJUSTMENT TO CARE; TO BE FOLLOWED BY COLLABORATION WITH THE PHYSICIAN AND NURSE TO DEVELOP A PLAN OF CARE SUMMARY OF MINIATURE SET CONSTRUCTOR EVAL/ASSESSMENT FINDINGS AND REASON(S) ALLIED HEALTH TEACHER IS INDICATED: MINIATURE SET CONSTRUCTOR EVALUATION: LUIS IS A 73 YEAR OLD MALE, REFERRED TO [facility]IZ[facility] FOR PNEUMONIA, SEPSIS, AND PERICARDIAL EFFUSION. 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 MINIATURE SET CONSTRUCTOR FACILITATED COMMUNITY RESOURCE ASSESSMENT AND LTC PLANNING ASSESSMENT. ENVIRONMENT: LUIS LIVES IN A STUDIO APARTMENT ALONE. HE DOES HAVE SOME SUPPORT FROM HIS FORMER SPOUSE ZACH. LUIS HAS [facility] IN PLACE 1 X A WEEK TWICE A MONTH FOR HOMEMAKING. HE REPORTS HE NEEDS ADDITIONAL HELP WITH LAUNDRY AND GROCERY SHOPPING. LUIS IS ABLE TO MAKE MEALS FOR HIMSELF AND IS NOT INTERESTED IN MEALS ON WHEELS. LUIS HAS NO FINANCIAL CONCERNS AT THIS TIME. PRESENTATION: LUIS IS ALERT AND ORIENTED X4. PLEASANT DURING VISIT. LUIS DOES HAVE HX OF DEPRESSION AND BIPOLAR DISORDER. HE IS SEEN BY [facility] TWICE A MONTH AND IS INTERESTED IN GETTING A PSYCHOTHERAPIST. HE REPORTS HE WOULD LIKE TO SPEAK WITH HIS METER RECORD CLERK BEFORE A REFERRAL IS MADE. INTERVENTION: ABHINAV IS INTERESTED IN OBTAINING MORE HELP FROM [facility]. MINIATURE SET CONSTRUCTOR CALLED [facility] AND SPOKE WITH BAND SAWYER FIDELINA MATTHEWS TO REAVALUATE PATIENT FOR MORE HOMEMAKING HOURS. POC: MINIATURE SET CONSTRUCTOR WILL FOLLOW UP 1 X FOR FURTHER RESOURCE SUPPORT AND MAKE SURE [facility] CAME OUT TO REVAVLUATE PATIENT AMD ACCESS EMOTIONAL SUPPORT NEEDS. MINIATURE SET CONSTRUCTOR WILL REMAIN AVAILABLE THROUGHOUT BENEFIT PERIOD. MEDICAL ROD FINISHER FOR COMMUNITY RESOURCE PLANNING. [code = MEDICAL ROD FINISHER FOR EVALUATION TO ASSESS SOCIAL AND EMOTIONAL FACTORS RELATED TO THE PATIENT'S ILLNESS, NEED FOR CARE, RESPONSE TO TREATMENT AND ADJUSTMENT TO CARE; TO BE FOLLOWED BY COLLABORATION WITH THE PHYSICIAN AND NURSE TO DEVELOP A PLAN OF CARE SUMMARY OF MINIATURE SET CONSTRUCTOR EVAL/ASSESSMENT FINDINGS AND REASON(S) ALLIED HEALTH TEACHER IS INDICATED: MINIATURE SET CONSTRUCTOR EVALUATION: LUIS IS A 73 YEAR OLD MALE, RE[facility]ED [facility] FOR PNEUMONIA, SEPSIS, AND PERICARDIAL EFFUSION. 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 MINIATURE SET CONSTRUCTOR FACILITATED COMMUNITY RESOURCE ASSESSMENT AND LTC PLANNING ASSESSMENT. ENVIRONMENT: LUIS LIVES IN A STUDIO APARTMENT ALONE. HE DOES HAVE SOME SUPPORT FROM HIS FORMER SPOUSE ZACH. LUIS HAS [facility] IN PLACE 1 X A WEEK TWICE A MONTH FOR HOMEMAKING. HE REPORTS HE NEEDS ADDITIONAL HELP WITH LAUNDRY AND GROCERY SHOPPING. LUIS IS ABLE TO MAKE MEALS FOR HIMSELF AND IS NOT INTERESTED IN MEALS ON WHEELS. LUIS HAS NO FINANCIAL CONCERNS AT THIS TIME. PRESENTATION: LUIS IS ALERT AND ORIENTED X4. PLEASANT DURING VISIT. LUIS DOES HAVE HX OF DEPRESSION AND BIPOLAR DISORDER. HE IS SEEN BY [facility] TWICE A MONTH AND IS INTERESTED IN GETTING A PSYCHOTHERAPIST. HE REPORTS HE WOULD LIKE TO SPEAK WITH HIS METER RECORD CLERK BEFORE A REFERRAL IS MADE. INTERVENTION: ABHINAV IS INTERESTED IN OBTAINING MORE HELP FROM [facility]. MINIATURE SET CONSTRUCTOR CALLED [facility] AND SPOKE WITH BAND SAWYER FIDELINA MATTHEWS TO REAVALUATE PATIENT FOR MORE HOMEMAKING HOURS. POC: MINIATURE SET CONSTRUCTOR WILL FOLLOW UP 1 X FOR FURTHER RESOURCE SUPPORT AND MAKE SURE [facility] CAME OUT TO REVAVLUATE PATIENT AMD ACCESS EMOTIONAL SUPPORT NEEDS. MINIATURE SET CONSTRUCTOR WILL REMAIN AVAILABLE THROUGHOUT BENEFIT PERIOD. MEDICAL ROD FINISHER FOR COMMUNITY RESOURCE PLANNING.] Future Scheduled Test PHYSICAL T HERAPY TO EVALUATE AND TREAT. PHYSICAL THERAPY EVALUATION PERFORMED. NO ADDITIONAL VISITS REQUIRED. PHYSICAL THERAPY EVALUATION ONLY (03/10/23) PATIENT IS A 73 YEAR OLD MALE WITH PHYSICAL THERAPY REFERRAL AFTER RECENT HOSPITALIZATION, DX: PNEUMONIA, SEPSIS AND PERICARDIAL EFFUSION. PATIENT REPORTS WAS DOING DIALYSIS 3 HRS EACH SESSION INSTEAD OF RECOMMENDED 4 HRS. PMH: PAROXYSMAL AFIB, PERICARDIAL EFFUSION, AND END STAGE RENAL DISEASE WITH DIALYSIS ON TUESDAY/TUESDAY/TUESDAY, ETOH ABUSE, DEPRESSION AND BIPOLAR, OSTEOARTHRITIS. FALL HISTORY: NONE REPORTED BY PATIENT PATIENT LIVES ALONE IN STUD APARTMENT, 3 STAIRS WITH RAIL TO NEGOTIATE. FORMER SPOUSE ZACH PROVIDES SOME SUPPORT, [facility] IN PLACE 2 HRS EVERY OTHER WEEK. PLOF: DROVE TO DIALYSIS, HAS HANDICAPPED PLACARD, MOD I AMB INDOORS AND IN COMMUNITY WITH CANE CLOF: DME: CANE, HEATING PAD, SUCTION GRAB BAR IN SHOWER SAFETY EDUCATION: RECOMMENDED RAISED TOILET SEAT 17 HEIGHT WITH NO GRAB BARS AND PATIENT DEMO DIFFICULTY TRANSFERRING OFF TOILET. AFFIXED RAISED TOILET SEAT AQUIRED FROM [facility], WITH PATIENT DEMO IMPROVEMENT TRANSFERRING. RECOMMENDED BED BE LOWERED HEIGHT = 34 . PATIENT INDEP TRANSFERRING OFF ALL SURFACES, PROVIDED SAFETY EDUC WHEN TRANSFERRING OFF ROLLING OFFICE CHAIR, ADVISED PATIENT BRACE AGAINST FURNITURE PRIOR TO TRANSFERRRING. PATIENT REPORTS ATTENDS AA 1X WK. PATIENT INDEP WITH BED MOBILITY AND TRANSFERS. PATIENT MOD I AMB IN HOME AND 150' OUTDOORS WITH CANE, 3 STAIR NEGOTIATION WITH RAIL MOD I WITH RAIL CANE. DISPENSED COLLAPSABLE FOLDING CANE WITH WIDER TIP SUPPORT ACQUIRED FROM [facility], ADJUSTED TO MAX SAFETY AND COMFORT WITH USAGE. PATIENT REPORTS ATTENDING NEOS, RECEIVED CORTISONE SHOTS BILAT KNEES, NEXT INJECTIONS SCHEDULED FOR MID BILAT LE ROM WFL, BILAT LE STRENGTH 4+ TO 5/5 PATIENT REPORTS COMPLIANCE AND INDEP DEMO BILAT LE THER EXER PREVIOUSLY DISPENSED BY OUTPATIENT CLINIC ([facility]) HEP SUPINE (CLAM SHELL, SLR, HEEL SLIDE) SEATED LAQ, STANDING WITH BILAT UE SUPPORT (PLANTAR FLEX, HAMSTRING CURL, HIP EXT). PATIENT IS AT PLOF AND COMPLIANT AND INDEP WITH BILAT LE THER EXER/HEP, PHYSICAL THERAPY EVALUATION ONLY WITH NO ADDITIONAL PHYSICAL THERAPY VISIT REQUIRED. PATIENT INFORMED ABOUT PHYSICAL THERAPY EVALUATION ONLY, VERBALIZED ACCEPTANCE. MD NOTIFIED ABOUT PATIENT STATUS AND PHYSICAL THERAPY EVAL ONLY. [code = PHYSICAL THERAPY TO EVALUATE AND TREAT. PHYSICAL THERAPY EVALUATION PERFORMED. NO ADDITIONAL VISITS REQUIRED. PHYSICAL THERAPY EVALUATION ONLY (03/10/23) PATIENT IS A 73 YEAR OLD MALE WITH PHYSICAL THERAPY REFERRAL AFTER RECENT HOSPITALIZATION, DX: PNEUMONIA, SEPSIS AND PERICARDIAL EFFUSION. PATIENT REPORTS WAS DOING DIALYSIS 3 HRS EACH SESSION INSTEAD OF RECOMMENDED 4 HRS. PMH: PAROXYSMAL AFIB, PERICARDIAL EFFUSION, AND END STAGE RENAL DISEASE WITH DIALYSIS ON TUESDAY/TUESDAY/TUESDAY, ETOH ABUSE, DEPRESSION AND BIPOLAR, OSTEOARTHRITIS. FALL HISTORY: NONE REPORTED BY PATIENT PATIENT LIVES ALONE IN STUDIO APARTMENT, 3 STAIRS WITH RAIL TO NEGOTIATE. FORMER SPOUSE ZACH PROVIDES SOME SUPPORT, [facility] IN PLACE 2 HRS EVERY OTHER WEEK. PLOF: DROVE TO DIALYSIS, HAS HANDICAPPED PLACARD, MOD I AMB INDOORS AND IN COMMUNITY WITH CANE CLOF: DME: CANE, HEATING PAD, SUCTION GRAB BAR IN SHOWER SAFETY EDUCATION: RECOMMENDED RAISED TOILET SEAT 17 HEIGHT WITH NO GRAB BARS AND PATIENT DEMO DIFFICULTY TRANSFERRING OFF TOILET. AFFIXED RAISED TOILET SEAT AQUIRED FROM [facility], WITH PATIENT DEMO IMPROVEMENT TRANSFERRING. RECOMMENDED BED BE LOWERED HEIGHT = 34 . PATIENT INDEP TRANSFERRING OFF ALL SURFACES, PROVIDED SAFETY EDUC WHEN TRANSFERRING OFF ROLLING OFFICE CHAIR, ADVISED PATIENT BRACE AGAINST FURNITURE PRIOR TO TRANSFERRRING. PATIENT REPORTS ATTENDS AA 1X WK. PATIENT INDEP WITH BED MOBILITY AND TRANSFERS. PATIENT MOD I AMB IN HOME AND 150' OUTDOORS WITH CANE, 3 STAIR NEGOTIATION WITH RAIL MOD I WITH RAIL CANE. DISPENSED COLLAPSABLE FOLDING CANE WITH WIDER TIP SUPPORT ACQUIRED FROM [facility], ADJUSTED TO MAX SAFETY AND COMFORT WITH USAGE. PATIENT REPORTS ATTENDING NEOS, RECEIVED CORTISONE SHOTS BILAT KNEES, NEXT INJECTIONS SCHEDULED FOR MID BILAT LE ROM WFL, BILAT LE STRENGTH 4+ TO 5/5 PATIENT REPORTS COMPLIANCE AND INDEP DEMO BILAT LE THER EXER PREVIOUSLY DISPENSED BY OUTPATIENT CLINIC ([facility]) HEP SUPINE (CLAM SHELL, SLR, HEEL SLIDE) SEATED LAQ, STANDING WITH BILAT UE SUPPORT (PLANTAR FLEX, HAMSTRING CURL, HIP EXT). PATIENT IS AT PLOF AND COMPLIANT AND INDEP WITH BILAT LE THER EXER/HEP, PHYSICAL THERAPY EVALUATION ONLY WITH NO ADDITIONAL PHYSICAL THERAPY VISIT REQUIRED. PATIENT INFORMED ABOUT PHYSICAL THERAPY EVALUATION ONLY, VERBALIZED ACCEPTANCE. MD NOTIFIED ABOUT PATIENT STATUS AND PHYSICAL THERAPY EVAL ONLY.] Future Scheduled Test SKILLED NU RSE FOR O/A OF ALTERED MOOD [code = SKILLED NURSE FOR O/A OF ALTERED MOOD ] Goal 2023-04-26 Patient Goal - I WANT TO THRIVE, AND ENJOY NATURE Goal Provider Goal - A PLAN OF CARE WILL BE ESTABLISHED THAT MEETS PATIENT'S [facility] NEEDS AND INCLUDES PATIENT GOAL FOR HOME HEALTH. Goal Provider Goal - PATIENT/CAREGIVER WILL VERBALIZE UNDERSTANDING OF EDUCATION PROVIDED ON MEDICATIONS BY THE END OF THE CERTIFICATION PERIOD. Goal Provider Goal - SYMPTOMS OF ANXIETY ARE IDENTIFIED AND INTERVENTIONS INITIATED TO ENABLE PATIENT TO UNDERSTAND AND MANAGE FEELINGS THROUGHOUT EPISODE. Goal Provider Goal - URINE SPECIMEN WILL BE OBTAINED PRN FOR SIGNS AND SYMPTOMS OF UTI AND RESULTS WILL BE REPORTED TO PHYSICIAN THROUGHOUT THE CERTIFICATION PERIOD. Goal Provider Goal - PATIENT/CAREGIVER WILL VERBALIZE/DEMONSTRATE MANAGEMENT OF CARDIAC DISEASE PROCESS AND EXACERBATIONS WILL BE IDENTIFIED AND PROMPTLY REPORTED THROUGHOUT THE CERTIFICATION PERIOD. Goal Provider Goal - PATIENT/CAREGIVER WILL VERBALIZE UNDERSTANDING OF GENITOURINARY DISEASE PROCESS, AND EXACERBATIONS OF GENITOURINARY DISEASE WILL BE PROMPTLY IDENTIFIED FOR EARLY INTERVENTION THROUGHOUT THE CERTIFICATION PERIOD. Goal Provider Goal - BOTTOMER OPERATOR TO COMPLETE EVALUATION TO ADDRESS THE PATIENTS SOCIAL AND EMOTIONAL FACTORS AND/OR WRITTEN PLAN OF TREATMENT ESTABLISHED FOR THE PHYSICIAN'S SIGNATURE. Goal Provider Goal - PATIENT/CAREGIVER WILL VERBALIZE/DEMONSTRATE INFECTION CONTROL MEASURES AND SIGNS AND SYMPTOMS OF INFECTION WILL BE IDENTIFIED AND PHYSICIAN NOTIFIED FOR PROMPT INTERVENTION THROUGHOUT THE CERTIFICATION PERIOD. Goal Provider Goal - PATIENT/CAREGIVER WILL VERBALIZE/DEMONSTRATE ABILITY TO MANAGE MUSCULOSKELETAL DISEASE WHILE MAINTAINING SAFETY THROUGHOUT THE EPISODE. Goal Provider Goal - A PHYSICAL THERAPY EVALUATION TO BE COMPLETED WITH RECOMMENDATIONS AND/OR WRITTEN PLAN OF TREATMENT ESTABLISHED FOR PHYSICIANS SIGNATURE. Goal Provider Goal - PATIENT/CAREGIVER WILL VERBALIZE UNDERSTANDING OF S/S AV SHUNT COMPLICATIONS TO REPORT BY END OF THE CERTIFICATION PERIOD. Goal Provider Goal - PATIENT/CAREGIVER WILL UTILIZE VIRTUAL VISITS TO ACHIEVE GOALS OUTLINED ON THE PLAN OF CARE. PATIENT WILL HAVE SUPPORT MEASURES ESTABLISHED TO PREVENT HOSPITALIZATION AND PATIENT/CAREGIVER WILL VERBALIZE/DEMONSTRATE METHODS TO REDUCE AVOIDABLE HOSPITALIZATION THROUGHOUT THE CERTIFICATION PERIOD. Goal Provider Goal - PATIENT WILL HAVE SUPPORT MEASURES ESTABLISHED TO PREVENT HOSPITALIZATION AND ED USE AND PATIENT/CAREGIVER WILL VERBALIZE/DEMONSTRATE METHODS TO REDUCE AVOIDABLE HOSPITALIZATION AND ED USE BY END OF EPISODE. Goal Provider Goal - PATIENT/CAREGIVER WILL VERBALIZE UNDERSTANDING OF DISCHARGE PLANNING INSTRUCTIONS BY DATE OF DISCHARGE. Goal Provider Goal - PATIENT/CAREGIVER WILL VERBALIZE/DEMONSTRATE EFFECTIVE HOME SAFETY AND FALL PREVENTION STRATEGIES THROUGHOUT CERTIFICATION PERIOD. Goal Provider Goal - PATIENT/CAREGIVER WILL DEMONSTRATE UNDERSTANDING OF PHARMACOLOGIC AND NONPHARMACOLOGIC PAIN CONTROL MEASURES AND PATIENT WILL HAVE IMPROVEMENT IN PAIN INTERFERING WITH ACTIVITY EVIDENCED BY PAIN CONTROLLED AT LEVEL OF 7 OR LESS BY END OF CERTIFICATION PERIOD. Goal Provider Goal - PATIENT/CAREGIVER WILL VERBALIZE UNDERSTANDING OF PRESSURE ULCER PREVENTION BY END OF THE EPISODE. Goal Provider Goal - PATIENT/CAREGIVER WILL VERBALIZE/DEMONSTRATE UNDERSTANDING OF THE MANAGEMENT OF DEPRESSION THROUGHOUT THE CERTIFICATION PERIOD AND SYMPTOMS ARE IDENTIFIED AND MANAGED TO MAINTAIN PATIENT SAFETY IN THE HOME. Goal Provider Goal - A MEDICAL ROD FINISHER CONSULT PRN WILL BE COMPLETED FOR THE ENHANCEMENT OF THE PATIENT'S SOCIAL AND EMOTIONAL FACTORS, NEED FOR CARE, RESPONSE TO TREATMENT AND ADJUSTMENT TO CARE, TO FOSTER INDEPENDENT LIVING AT HOME USING COMMUNITY RESOURCES, INCREASED FAMILY INVOLVEMENT OR BOTH WITHIN 2 WEEKS. PATIENT/CAREGIVER WILL VERBALIZE/DEMONSTRATE EFFECTIVE COMMUNITY RESOURCE PLANNING, EVIDENCED BY ACCEPTANCE OF ASSISTANCE FROM THOSE SERVICES FOR WHICH THEY ARE ELIGIBLE, EXTENDING THE PERIOD OF INDEPENDENCE IN THE HOME. Goal Provider Goal - NONE Goal Provider Goal - PATIENT WILL BE ABLE TO PERFORM DAILY FUNCTIONS AND HAVE OPTIMAL IMPROVEMENT IN MOOD STABILITY. Reason for Visit INDEPENDENT IN THE COMMUNITY Encounters Start Date/Time End Date/Time Encounter Type Admission Type Attending [facility] Care Department Encounter ID Discharge Date Discharge Status Discharge Condition Discharge Reason Percent Goals Met 2023-03-05 00:00:00 2023-04-26 00:00:00 Outpatient NEW ADMISSION PAT [facility] [id number] 2023-04-26 00:00:00 DISCHARGE TO HOME OR SELF CARE INDEPENDEN T IN THE COMMUNITY GOALS MET ( ONLY) 95.74
[2024-07-02] MEDS: Acetaminophen 1,000 MG/100 ML PIGGYBACK 400 MG IV (16:40)
[2024-07-02 16:46] LABS: B Type Natriuretic Peptide 583 pg/mL (<100)
[2024-07-02 17:09] LABS: Influenza A PCR NEGATIVE (Negative); Influenza B PCR NEGATIVE (Negative); Resp Syncy Virus RNA Qual PCR NEGATIVE (Negative); SARS COV2 PCR INHOUSE NEGATIVE (Negative)
--- NOTE | 2024-07-02 21:02 | MHC.CM.ED ---
CMmet with patient at the request of Milena THOMAS. Pt is well kempt. Lives alone in an apartment. Drives. Uses a cane and walker. He has MOW and laundry services. He sees a monthly foot nurse. He states he has difficulty showering, as he does not have a shower chair. He states it is difficulty to use his walker in the snow. He has ESRF on Dialysis Tue/Tue/Tuesday at [facility]. States he has been on dialysis for 5 years. Is active with [facility] for SN and PT. States PT comes twice a month. Unclear on how often SN comes. HCP is on file. Affect is flat. Speaking softly and in a monotone voice. Does not make eye contact. Admits to feeling very depressed, alone and feels overwhelmed with his lack of a life . States he is hopeless. States all he does is go to dialysis and stay at home. He is lonely. States he should just stay in the snow. Thinks he may want to live in a retirement, but does not have a payor source. CM is unsure if this is really what the patient wants, or if he is so lonely and depressed and does not want to be alone. Pt states he has lived too long. States he should just stay in a snow bank. Pt just started seeing boat patcher plastic Kathy oWodall 2 weeks ago and was started on medications. He is supposed to follow up with her via telehealth. The patient is very willing to speak with our CARE team. PCP is Dr. Davis and Dr. Sweet is his renal MD. Pt is aware that PT will evaluate him in the morning to determine if he needs STR. Explained 3 midnight rule to patient. Aware that his insurance will not pay for STR, since he does not have a qualifying stay. Pt was at [facility] from 06/18-06/19. No referrals made at this time. Anticipate patient will continue with home PT if cleared by psych. Pt did drive himself to dialysis today, so he was able to care for himself today and get himself to where he had to go. Above shared with Milena THOMAS. She will order a CARE team consult for depression and vague suicide ideation. No consults placed at this time. Above conversation shared with primary RN and PROPERTY INSPECTOR. CM will follow for safe discharge plan.
[2024-07-03] VITALS: BP 130/60; PULSE 56; RESP 15; TEMP 36.6; O2SAT 95
--- NOTE | 2024-07-03 03:48 | PC.NURSE ---
this rn assumed care of pt, pt resting in stretcher, no acute distress noted.
[2024-07-03 05:22] VITALS: BP 130/58; PULSE 59; RESP 16; TEMP 36.1; O2SAT 98
--- NOTE | 2024-07-03 05:52 | PC.NURSE ---
this rn noted pt previous notes to state SI ideation, this rn spoke with pt, pt denies SI thoughts at this time but reports he is feeling depressed. rn hemodialysis charge aware.
[2024-07-03 07:22] VITALS: BP 130/58; PULSE 59; O2SAT 98
[2024-07-03 07:26] VITALS: BP 136/68; PULSE 63; RESP 16; TEMP 36.2; O2SAT 100
[2024-07-03 08:02] VITALS: BP 157/71; PULSE 64; RESP 17; TEMP 36.6; O2SAT 100
--- NOTE | 2024-07-03 08:28 | MHC.CARE ---
Pt does not meet the criteria for a higher level of care and does not present as an imminent risk. Pt will be referred to OP therapy for additional support in the community. Pt is cleared by the CARE team. Provider in agreement with disposition.
--- NOTE | 2024-07-03 09:46 | MHC.CM.ED ---
Patient remains in ER overflow. Physical therapy eval completed. Home with services is recommended. Received notification from Raúl VALVERDE that family is interested in LTC. Family is aware it would be privately paid. Family states he has about $17,000. T/W attempted to speak to jayden's HCP/ex-, Lenora via telephone at [phone] and [phone]. Left messages requesting return telephone call. Continue to monitor for d/c needs.
--- NOTE | 2024-07-03 10:31 | MHC.CM.ED ---
Received return telephone call from Lenora. Lenora feel is not safe to return home and is interested in senior care care. Lenora states patient is now agreeable to senior care care. Lenora verifies patient has about $17,000. He has an apartment and a leased car. Patient also goes to [facility] dialysis in [place] Tue, , and Tuesday. long-term care options discussed with Lenora. Also explained LTC requirements in regards to private pay. Information provided on [facility] and [facility] senior care care application requirements. Also explained [facility] is not contracted with outpatient dialysis. Lenora will speak to patient about a safe d/c plan. Continue to monitor for d/c needs.
--- NOTE | 2024-07-03 10:41 | PHA.MEDREC ---
Addendum entered by Chuy Duarte 07/03/24 11:04: reviewed Original Note: Pharmacy Consult ? Medication Reconciliation Pharmacy has completed the medication reconciliation. Spoke to patient to confirm med list from [facility]. Patient states he is no longer taking Nifedapine XL 30 mg and Tramadol 50 mg. Patient confirmed Lisinopril 20 mg Dialysis list has 40 mg daily, Metoprolol ER Patient confirmed 25 mg, however claims has 12.5 mg (1/2 of 25mg) Daily, Sodium polystyrene sulfonate 15 g Tuesday,, Tuesday, Tuesday, Furosemide 80 mg Tuesday, , Tuesday, Tuesday ( Not on Dialysis days Tuesday, Tuesday, Tuesday), Vitamin D3 50,000 Qmonth last dose was first week of May.
--- NOTE | 2024-07-03 11:03 | MHC.CARE ---
CC referral complete.
[2024-07-03] MEDS: Metoprolol Succinate ER 25 MG TAB.ER.24H PO (11:41)
[2024-07-03] MEDS: OXcarbazepine 300 MG TABLET 600 MG PO (11:41)
[2024-07-03] MEDS: Cyanocobalamin (Vitamin B-12) 1,000 MCG TABLET 1000 MCG PO (11:41)
[2024-07-03] MEDS: Furosemide 40 MG TABLET 80 MG PO (11:41)
[2024-07-03] MEDS: lamoTRIgine 100 MG TABLET PO (11:41)
[2024-07-03] MEDS: lisinopriL 20 MG TABLET PO (11:41)
[2024-07-03] MEDS: Prochlorperazine Maleate 5 MG TABLET PO (11:41)
[2024-07-03] MEDS: Ascorbic Acid 500 MG TABLET PO (11:42)
--- NOTE | 2024-07-03 14:26 | MHC.CM.ED ---
Patient and ex-/HCP, Lenora, have decided patient will d/c home. Lenora will transport patient home. [facility] made aware to resume services. Patient, Bushra Cooley RN and Elizabeth THOMAS aware. Continue to monitor for d/c needs.
[2024-07-03 14:56] VITALS: BP 157/71; PULSE 64; RESP 17; TEMP 36.6; O2SAT 100
== END 2024-07-03 15:15 | disposition home or self-care (01) ==
PROVIDERS: Physician Assistant Medical; Emergency Provider Emergency Medicine; PCP Family Medicine
DX: R07.89 Other chest pain (principal); R45.851 Suicidal ideations; R26.2 Difficulty in walking, not elsewhere classified; R11.0 Nausea; R00.1 Bradycardia, unspecified; Z03.818 Encounter for observation for suspected exposure to other biological agents ruled out; Z79.899 Other long term (current) drug therapy
CPT/HCPCS: 0241U; 36415; 71045; 80053; 83735; 83880; 84484; 85025; 85610; 93005; 96360; 97162; 99285; J0131

== ENCOUNTER → 2024-07-02 15:12 | Outpatient (BNV) | payer MEDICARE, OTHER, SELFPAY | PROVIDERS: Emergency Provider Emergency Medicine; Visit Provider Internal Medicine | DX: R07.9 Chest pain, unspecified (principal) | CPT/HCPCS: 93010 ==

== ENCOUNTER → 2024-07-02 16:24 | Outpatient (BNV) | payer MEDICARE, OTHER, SELFPAY | PROVIDERS: Emergency Provider Emergency Medicine; Visit Provider Radiology Diagnostic Radiology | DX: R07.9 Chest pain, unspecified (principal) | CPT/HCPCS: 71045 ==

== ENCOUNTER 2024-07-19 09:03 | Outpatient (AMB) | payer MEDICARE, OTHER, SELFPAY ==
--- NOTE | 2024-07-19 09:06 | A.OFFVIS_ITS ---
Vital Signs 07/19/24 09:07 Height 5 ft 10 in Weight 151 lb 3.794 oz BMI 21.7 BP 124/72 Blood Pressure Location Rt brachial Position Sitting Pulse 60 Pulse Source Pulse Oximeter Intake Visit Reasons: f/up after holter n echo Driver/Refuse Collector Required: No Allergies bupropion [From WELLBUTRIN] Adverse Reaction (Unknown, Verified 07/19/24 09:09) CONSTIPATION NSAIDS (Non-Steroidal Anti-Inflamma [NSAIDS (NON-STEROIDAL ANTI-INFLAMMA] Adverse Reaction (Unknown, Verified 07/19/24 09:09) RENAL Jbrfozy-UZZ-RlY Reductase Inhibitor [TVZXPOK-SOZ-NFT REDUCTASE INHIBITOR] Adverse Reaction (Unknown, Verified 07/19/24 09:09) UNK Medication List - Last Reconciled 07/19/24 by WILVER Seth albuterol sulfate 90 mcg/actuation (Ventolin HFA) 2 puffs inhalation Q6H PRN ascorbic acid (vitamin C) 500 mg PO DAILY clonazepam 1 mg PO TID cyanocobalamin (vitamin B-12) 1,000 mcg PO DAILY ergocalciferol (vitamin D2) 1,250 mcg PO QMONTH furosemide 80 mg PO SUTUTHSA lamotrigine (Lamictal) 100 mg PO DAILY lisinopril 20 mg PO DAILY meclizine 25 mg PO BID PRN metoprolol succinate ER 25 mg PO DAILY oxcarbazepine 600 mg PO BID prochlorperazine maleate 5 mg PO BID sodium polystyrene sulfonate 15 grams PO SUTUTHSA trazodone 50 mg PO BEDTIME PRN vitamin B complex 1 tab PO DAILY HPI HPI f/up after holter n echo: Details: Igor is a 74 year-old male with past medical history of hypertension, smoking, end-stage renal disease and on dialysis, episode of atrial flutter during acute illness , mild cardiomyopathy, frequent PVCs who presents for follow-up after recent echocardiogram and Holter monitor. Today he reports that he has been doing generally well since his last visit in December. He was admitted to [facility] in June with confusion, metabolic encephalopathy, COVID. He also had brief admission in early June for hyperkalemia. He was seen in the ER on 07/02/2024 with chest discomfort that occurred at dialysis and ruled out for ACS. Today he reports that he does get periodic chest pressure at dialysis only. He says this is not a new symptom for him. No chest discomfort at other times or during physical activity. He denies shortness of breath, PND, orthopnea or edema. No palpitations, lightheadedness, presyncope, syncope. Ambulates slowly with a cane. Attends dialysis 3 times weekly. Taking all meds as directed. [facility] Medical History CRF (chronic renal failure) ESRD (end stage renal disease) on dialysis Anemia ESRD (end stage renal disease) CKD (chronic kidney disease) Hypoxia Atrial flutter Nicotine dependence, cigarettes, uncomplicated AV fistula Essential hypertension Mood disorder Effusion, pericardium Pleural effusion, left Chronic kidney 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 Surgical History History of colonoscopy History of hernia repair History of parathyroidectomy Social History Household Members: None [facility] Do you presently have visiting nurse or other home services: Yes Alcohol intake: former Comment: patient refuses bed alarm, and refuses to wear non-skid red socks Patient Tobacco Use Status: Former Tobacco user Tobacco use type: Cigarette Cigarette Packs Per Day: 0.5 Cigarettes Per Day: 10.0 Years Smoked: 60 +/- e-Cigarette/Vaping Use: Currently Using Second Hand Smoke Exposure: Yes Advance Directives Date on File: 03/01/23 service: No Review of Systems Const All systems reviewed & are unremarkable except as noted in HPI and below ENT Denies dizziness Card Denies chest pain, Reports chest pain at rest, Denies chest pain with activity, Denies rapid heart rate, Denies pedal edema, Denies edema, Denies leg edema, Denies lightheadedness, Denies palpitations, Denies dyspnea, Denies dyspnea on exertion and Denies orthopnea Resp Denies cough, Denies dyspnea and Denies dyspnea on exertion GI Denies hematochezia and Denies change in stool character Musc Denies abnormal gait, Denies limited range of motion, Denies muscle cramps, Denies muscle weakness, Denies numbness, Denies radiating pain into limb, Denies stiffness and Denies tingling Neuro Denies abnormal gait, Denies dizziness, Denies numbness and Denies tingling Endo Denies palpitations Physical Exam Vital Signs: Last Vital Signs Pulse 60 07/19/24 09:07 BP 124/72 07/19/24 09:07 BMI result Body Mass Index 21.7 Const General: cooperative, healthy appearing, comfortable and no acute distress Orientation/consciousness: patient oriented x3 Neck Neck: Yes normal visual inspection and Yes no JVD Resp Effort & Inspection: normal respiratory effort Auscultation: clear to auscultation bilaterally, no crackles, no rales, no rhonchi and no wheezes Cardio Rate: regular rate Rhythm: regular rhythm Heart sounds: S1 normal heart sound present, S2 normal heart sound present, no murmurs and no rubs Neuro General: patient oriented x3 Extrem General: Yes normal to inspection, No no pedal edema and No calf tenderness Psych Appearance: grossly normal Mental Status: mental status grossly normal Speech and movement: Normal speech and movement present Assessment & Plan Assessment & Plan (1) Cardiomyopathy: Code(s): I42.9 - Cardiomyopathy, unspecified Category: Medical Plan: Mild cardiomyopathy noted on echocardiograms. A nuclear stress test was done on 08/18/2023 showing normal myocardial perfusion imaging. Last echocardiogram done 05/22/2024 shows EF 50-55%, impaired relaxation, severely dilated left atrium, mild MR, ascending aorta 4.1 cm. Cardiomyopathy is nonischemic and could be related to frequent PVCs as seen on Holter below. On exam today as no clinical signs of heart failure. He continues with hemodialysis 3 times weekly and follows closely with Nephrology. Signs and symptoms of heart failure reviewed with him. He is on lisinopril and metoprolol for neurohormonal xl modulation. Will continue these meds without change. Labs from 07/02/2024 showed potassium 4.1, creatinine 3.86. Cardiology follow-up in 6 months, sooner if needed. 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 Holter monitor from 05/19/2023 showed PVC 7.4% of time. He has been on low-dose metoprolol. We have not been able to titrate further due to low resting heart rate. Holter monitor done 05/22/2024 for 2 days showed sinus rhythm, average rate 62, PVCs 12.5% of time. His most recent echo shows low normal EF. He does not have any heart palpitations. Heart tones are regular on examination. Most recent labs 07/02/2024 showed magnesium 2.2, calcium 9.4, potassium 4.1. He has had issues with elevated potassium in the recent past and had his dialysis adjusted. At this time will continue with current med management. His labs are followed closely by Nephrology. (3) Atrial flutter: Code(s): I48.92 - Unspecified atrial flutter Category: Medical Plan: Brief episode of atrial flutter during 02/2023 hospital admission. It was thought to be related to acute illness/ pneumonia. He was put on metoprolol for rate control. Anticoagulation was not indicated due to isolated brief episode. Follow-up Holter monitor 05/2023 did not show recurrent AFib. He again had repeat Holter monitor 05/22/2024 which again does not show any atrial fibrillation. His most recent echo does show severely dilated left atrium. He is clinically in sinus rhythm today. He continues on metoprolol XL 25 mg daily. Chads Vasc score of 2 with age and hypertension. If he is found to have recurrent atrial fibrillation/ flutter going forward then will require anticoagulation. Patient informed of this and states understanding. (4) Chest discomfort: Code(s): R07.89 - Other chest pain Category: Medical Plan: Recent ER evaluation for chest discomfort that occurred during dialysis. He ruled out for ACS. He was thought to have costochondritis. He tells me he does get chest discomfort periodically during dialysis which is not new. He does not get chest discomfort at any other time. Will continue with current med management and risk factor modification. Informed him that if his symptom changes or increases he should notify this office or seek emergency medical care. Will re-evaluate condition next visit. (5) Enlarged pulmonary artery: Comment: (noted on 01/[address]) Code(s): I28.8 - Other diseases of pulmonary vessels Category: Medical Plan: Seen on recent CT scan at time of prior admission. Recent Echocardiogram shows dilated ascending aorta 4.1 cm which is unchanged. Blood pressure is well controlled. We will follow with periodic echoes (6) Essential hypertension: Code(s): I10 - Essential (primary) hypertension Category: Medical Plan: Well controlled at present. Taking all meds as directed. (7) Hospital discharge follow-up: Code(s): Z09 - Encounter for follow-up examination after completed treatment for conditions other than malignant neoplasm Category: Medical Plan: as above Plan Time spent on chart review, documentation, interview and assessment Medications: New lisinopril 20 mg PO DAILY 90 tabs 3RF metoprolol succinate ER 25 mg PO DAILY 90 tabs 3RF Coding Level of Care Code Est Pt Level 4 (14795) Complex EM visit Add On G2211 Diagnoses Cardiomyopathy I42.9 Frequent PVCs I49.3 Atrial flutter I48.92 Chest discomfort R07.89 Enlarged pulmonary artery I28.8 Essential hypertension I10 Hospital discharge follow-up Z09 Time Spent (min) 32
[2024-07-19 09:07] VITALS: BP 124/72; PULSE 60; BMI 21.7
--- OUTSIDE RECORDS SUMMARY | 2024-07-19 09:08 | XMS_ITS | Continuity of Care Document ---
Author Organization [facility] Chip lt Address [address] [place] [address]- Care Team Providers Care Front End Java Developer Name Role Phone Gerald Thompson MD Primary Care Physician [phone] Encounter [facility] [place] Date(s): 07/05/24 - 07/12/24 [facility] [address] [place] [address]- Encounter Diagnosis End stage renal disease(Discharge Diagnosis) - 07/05/24 Bipolar disorder(Discharge Diagnosis) - 07/05/24 Chest pain(Discharge Diagnosis) - 07/05/24 Attending Physician: Gerald Thompson MD Encounter Type: Office Visit Allergies, Adverse Reactions, Alerts Substance Criticality Severity Reaction Reaction Severity Status ibuprofen decrease kidney function Active Zocor headaches simvastatin Active statins headache Active NSAIDs harms kidney f unction kidneys Active Wellbutrin severe constipation Active Immunizations Given and Recorded Vaccine Date Status Refusal Reason influenza virus vaccine, inactivated 05/07/24 Arsenio rded influenza virus vaccine, inactivated 04/18/23 Arsenio rded [...] virus vaccine, inactivated 5 04/28/12 Gi paulo SARS-CoV-2(COVID-19)mRNA-LNP vac([id number]) 07/06/23 Recorded SARS-CoV-2 (COVID-19) mRNA-1273 vaccine 06/30/21 R ecorded SARS-CoV-2 (COVID-19) mRNA-1273 vaccine 10/08/20 R ecorded SARS-CoV-2 (COVID-19) mRNA-1273 vaccine 08/27/20 R ecorded pneumococcal 13-valent vaccine 09/26/15 Given pneumococcal 23-valent vaccine 6 09/25/14 Given tetanus/diphtheria/pertussis, acel(Tdap) 12/24/10 Given tetanus-diphtheria toxoids (Td) 07/18/99 Given [facility] Comment: [05/12/2017] [facility] [id number] HIGH DOSE NOT IN SUPPLY . REGULAR DOSE GIVEN TO PT PER DR THOMPSON AND PER PT REQUEST 3Result Comment: [05/23/2015] [facility] 4Admin Note: declined 5Admin Note: Declined 6Admin Note: DECLINED Medications B-12 = 500 mcg, Sublingual, Daily, 0 Refills, Maintenance, 02/20/24 8:19:00 AM EDT, [...] Maintenance, 10/14/23 12:13:00 PM EDT, [facility], 172.2, cm, 10/13/23 15:50:00 EDT, Height, 67.4, [...] 02/01/23 Status: Ordered Repeat number: 1 LaMICtal 100 mg oral tablet 100 mg, 1, tablet, By Mouth, Daily, Refills 0, Maintenance, 07/05/24 10:14:00 AM EST, Partial fill upon patient request if the prescription is for a schedule II opioid drug. Start Date: 07/05/24 Status: Ordered Repeat number: 1 LaMICtal 25 [...] Quantity: 30.0 Unit: tablet Repeat number: 1 meclizine 25 mg oral tablet 1 tablet = 25 mg, By Mouth, 2 times a day, 0 Refills, Maintenance, 07/05/24 10:16:00 AM EST, Partial fill upon patient request if the prescription is for a schedule II opioid drug. Start Date: 07/05/24 Status: Ordered Repeat number: 1 metoprolol 25 mg oral [...] 02/01/23 Status: Ordered Repeat number: 1 Trazodone = 50 mg, By Mouth, Daily at bedtime, 0 Refills, [...] Unit: tablet Repeat number: 1 Vitamin D2 = 50,000 International_Units, By Mouth, Every 30 days, 0 Refills, Maintenance, 03/15/23 2:07:00 PM EDT, [...] ischemic changes 08/04/2023 outside record [facility] [phone] phone M-W-F 2nd shift 3external EKG from 07/31/2023 Diagnosis Diagnosis Type Effective Dates Health Status Cl inical Service Informant End stage renal disease Discharge Diagnosis 07/05/24 Bipolar disorder Discharge Diagnosis 07/05/24 Chest pain Discharge Diagnosis 07/05/24 Vital Signs Most recent to oldest [Reference Range]: 1 Height 175.26 cm (07/05/24 10:20 AM) Weight 66.3 kg (07/05/24 10:20 AM) Oxygen Saturation [94-100 %] 97 % (07/05/24 10:20 AM) Pulse Rate [55-90 bpm] 60 bpm (07/05/24 10:20 AM) Body Mass Index [18.5-24.99 kg/m2] 21.58 kg/m2 (07/05/24 10:20 AM) Blood Pressure [90-138/55-84 mm Hg] 101/ 60mm Hg (07/05/24 10:20 AM) Mode of Delivery (Oxygen) Room air (07/05/24 10:20 AM) Blood pressure sites Arm, right (07/05/24 10:20 AM) Weight Obtained Via Standing scale (07/05/24 10:20 AM) Social History Social History Type Response Tobacco Other: quit 06/26/23 . Sex Sex Representation Male (finding) Patient Care team information Care Team Personnel Name: Colette Dillard Position: [facility] Outreach Member Role: Lifetime Consulting Physician Name: Vivi Ty Position: [facility] Outreach Member Role: Lifetime Consulting Physician Name: Gerald Thompson MD Position: [facility] Physician - Primary Care Member Role: PCP Address: [address] [place] [id number] Telecom: Name: Sarah Santoro Position: [facility] AMB Nurse Member Role: Lifetime Consulting Physician Name: Annalisa Daniels RN Position: [facility] RN Member Role: Primary Care Nurse Name: Dione Becker Position: [facility] [place] Individual Pension Adviser Member Role: Family Living Educator Care Team Related Persons Name: ZACH NARAYANAN Insurance Providers Guarantor name: LUIS LADY Health Plan Information #: 2 Payer: [employer] [facility] Member Number: [id number] Policy Number: NA Group Number: [id number] Health Plan Information #: 1 Payer: MEDICARE PART B OUTPT Member Number: [id number] Policy Number: NA Group Number: [id number]
== END 2024-07-19 09:32 | disposition home or self-care (01) ==
PROVIDERS: PCP Family Medicine; Visit Provider Nurse Practitioner Family
DX: I42.9 Cardiomyopathy, unspecified (principal); I49.3 Ventricular premature depolarization; I48.92 Unspecified atrial flutter; R07.89 Other chest pain; I28.8 Other diseases of pulmonary vessels; I10 Essential (primary) hypertension; Z09 Encounter for follow-up examination after completed treatment for conditions other than malignant neoplasm
CPT/HCPCS: 99214; G2211

== ENCOUNTER → 2024-07-19 09:03 | Outpatient (BNVA) | payer MEDICARE, OTHER, SELFPAY | PROVIDERS: PCP Family Medicine; Visit Provider Nurse Practitioner Family | DX: Z09 Encounter for follow-up examination after completed treatment for conditions other than malignant neoplasm (principal); I42.9 Cardiomyopathy, unspecified; I49.3 Ventricular premature depolarization; I48.92 Unspecified atrial flutter; I28.8 Other diseases of pulmonary vessels; I10 Essential (primary) hypertension; R07.89 Other chest pain | CPT/HCPCS: 99212 ==

== ENCOUNTER 2025-01-06 11:25 | Inpatient (IN) | payer MEDICARE, OTHER, SELFPAY ==
[2025-01-06] VITALS (7 sets, daily range): BP systolic 134–180; BP diastolic 56–78; PULSE 59–80; RESP 12–19; TEMP 36.7–37.6; O2SAT 95–100; BMI 20.6; BMI 21.5
--- NOTE | 2025-01-06 | ECG_ITS ---
Test Reason : weankness Blood Pressure : */* mmHG Vent. Rate : 67 BPM Atrial Rate : 67 BPM P-R Int : 198 ms QRS Dur : 104 ms QT Int : 452 ms P-R-T Axes : 54 -2 61 degrees QTcB Int : 477 ms Normal sinus rhythm Minimal voltage criteria for LVH, may be normal variant ( Sokolow-Dominique ) Nonspecific ST and T wave abnormality Abnormal ECG When compared with ECG of 02-Jul-2024 15:21, Premature ventricular complexes not present Criteria for Septal infarct are no longer Present Referred By: Dean Willis Electronically Signed By: SHERRIE HAWK
--- NOTE | ~2025-01-06 | CT_ITS ---
CLINICAL HISTORY: fall CT cervical spine without contrast. COMPARISON: None provided. FINDINGS: Grade 1 anterolisthesis of C4 on C5, degenerative. Vertebral body heights are maintained. Skull base and intracranial structures appear normal. The left thyroid lobe nodule measuring 2.1 cm. Mild emphysema at the partially visualized lung apices. C2-C3: Fusion of the posterior elements. No significant neural foraminal narrowing. C3-C4: Uncovertebral joint hypertrophy. Facet joint arthrosis. Severe left neural foraminal narrowing. C4-C5: Facet joint arthrosis. No significant neural foraminal narrowing. C5-C6: Anterior marginal osteophytes. Loss of disc space height. Uncovertebral joint hypertrophy. Posterior disc osteophyte complex. Mild spinal canal stenosis at this level. Mild bilateral neural foraminal narrowing, [id number]. C6-C7: No significant neuroforaminal narrowing or spinal canal stenosis. IMPRESSION: 1. No evidence of acute injury to the cervical spine. 2. Grade 1 anterolisthesis of C4 on C5, degenerative. 3. Moderate to advanced multilevel cervical spondylosis. 4. Left thyroid lobe nodule measuring 2.1 cm. Recommend correlation with nonemergent thyroid ultrasound if not already performed. This document has been electronically signed by: James Mcnally MD on 01/06/2025 15:28:48
--- NOTE | ~2025-01-06 | CT_ITS ---
CLINICAL HISTORY: fall CT head without contrast. COMPARISON: None provided. FINDINGS: The visualized paranasal sinuses are clear. The mastoid air cells are clear. No calvarial fracture. Atherosclerotic intracranial vasculature. No evidence for mass or mass effect. No intracranial hemorrhage or abnormal extra-axial fluid collection. The ventricles are proportional with the degree of mild global cerebral volume loss without evidence of hydrocephalus. Basilar cisterns are patent. Posterior fossa appears unremarkable. IMPRESSION: 1. No acute intracranial findings. This document has been electronically signed by: James Mcnally MD on 01/06/2025 15:24:37
--- NOTE | ~2025-01-06 | XR_ITS ---
CLINICAL HISTORY: History of AFib, status post fall Single view of the chest. COMPARISON: None provided. FINDINGS: Borderline cardiomegaly. There is enlargement of the pulmonary trunk. Prominence of the right main pulmonary artery. No consolidation. Mild bronchial wall thickening. No pleural effusion or pneumothorax. Dextrocurvature of the lower thoracic spine. No acute fracture. IMPRESSION: 1. Mild bronchial wall thickening. 2. Enlarged main pulmonary artery can be associated with pulmonary hypertension. This document has been electronically signed by: James Mcnally MD on 01/06/2025 17:57:51
--- NOTE | 2025-01-06 11:50 | PC.NURSE ---
Addendum entered by Geena Guzman RN 01/06/25 11:50: Patient is a 74 year-old male with past medical history of hypertension, smoking, end-stage renal disease and on dialysis, episode of atrial flutter during acute illness , mild cardiomyopathy, frequent PVCs who presents after being found of the floor by his ex-. Patient vague and not forthcoming regarding how he ended up on the floor. Bizarre affect noted. Patient denies dizziness, trip/fall and states he laid on the floor. Patient also missed dialysis on Tuesday and states not sure why. Placed on the wrapper rewinder and NSR noted. Lungs clear bilat. Respirations even and non-labored. Abdomen flat, soft, non-tender with positive bowel sounds. AVF noted to left arm with positive bruit and thrill. Positive pedal pulses with no edema noted. Original Note: Medical History CRF (chronic renal failure) ESRD (end stage renal disease) on dialysis Anemia ESRD (end stage renal disease) CKD (chronic kidney disease) Hypoxia Atrial flutter Nicotine dependence, cigarettes, uncomplicated AV fistula Essential hypertension Mood disorder Effusion, pericardium Pleural effusion, left Chronic kidney 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
--- NOTE | 2025-01-06 12:01 | ED.FALL ---
HPI - Fall General Chief Complaint: General Medical Stated Complaint: FALL AT HOME Time Seen by Provider: 01/06/25 11:34 Source: patient, EMS and other (pt-s ex now a friend contacted independently for more info) History of Present Illness ED Provider: HPI Narrative: 74-year-old male with multiple medical problems, he is on hemodialysis, he has dialysis Tuesday, he missed dialysis on Tuesday, he was found on the floor, his house is clotted, and I spoke to his ex and his also power of district attorney who told me he likely fell, patient actually denies that but he is also not forthcoming and she states that he does have a mood disorder and when he does not want to do something and he did want him to come to the ER he is going to be very vague about things. Patient is alert and oriented to self, location, he is aware that he has missed dialysis, she also told me that he has been speaking to dialysis team possibly getting off dialysis and going on hospice, at the time of our interaction patient denies headaches, neck pain, chest pain, palpitations, fevers or chills. Related Data Home Medications ?Medication ?Instructions ?Recorded ?Confirmed ascorbic acid (vitamin C) 500 mg 500 mg PO DAILY 02/28/23 07/19/24 tablet clonazepam 1 mg tablet 1 mg PO TID 02/28/23 07/19/24 cyanocobalamin (vitamin B-12) 1,000 mcg PO DAILY 02/28/23 07/19/24 1,000 mcg tablet furosemide 80 mg tablet 80 mg PO SUTUTHSA 02/28/23 07/19/24 oxcarbazepine 600 mg tablet 600 mg PO BID 02/28/23 07/19/24 prochlorperazine maleate 5 mg 5 mg PO BID 02/28/23 07/19/24 tablet albuterol sulfate 90 mcg/actuation 2 puff inhalation Q6H PRN 08/01/23 07/19/24 aerosol inhaler (Ventolin HFA) Shortness Of Breath Or Wheezing vitamin B complex 1 tab PO DAILY 08/01/23 07/19/24 lamotrigine 100 mg tablet 100 mg PO DAILY 04/04/24 07/19/24 (Lamictal) meclizine 25 mg tablet 25 mg PO BID PRN dizziness 04/04/24 07/19/24 ergocalciferol (vitamin D2) 1,250 1,250 mcg PO QMONTH 07/03/24 07/19/24 mcg (50,000 unit) capsule sodium polystyrene sulfonate 15 g PO SUTUTHSA 07/03/24 07/19/24 trazodone 50 mg tablet 50 mg PO BEDTIME PRN insomnia 07/03/24 07/19/24 Previous Rx's ?Medication ?Instructions ?Recorded lisinopril 20 mg tablet 20 mg PO DAILY #90 tabs 07/19/24 metoprolol succinate 25 mg 25 mg PO DAILY #90 tabs 07/19/24 tablet,extended release 24 hr Allergies Allergy/AdvReac Type Severity Reaction Status Date / Time bupropion (From WELLBUTRIN) AdvReac Unknown CONSTIPATIO Verified 01/06/25 11:40 N NSAIDS (Non-Steroidal AdvReac Unknown RENAL Verified 01/06/25 11:40 Anti-Inflamma (NSAIDS (NON-STEROIDAL ANTI-INFLAMMA) [id number]-[id number] Reductase AdvReac Unknown UNK Verified 01/06/25 11:40 Inhibitor ([id number] REDUCTASE INHIBITOR) Review of Systems Constitutional: Constitutional: Reports as per [facility] Past Medical History Medical History CRF (chronic renal failure) ESRD (end stage renal disease) on dialysis Anemia ESRD (end stage renal disease) CKD (chronic kidney disease) Hypoxia Atrial flutter Nicotine dependence, cigarettes, uncomplicated AV fistula Essential hypertension Mood disorder Effusion, pericardium Pleural effusion, left Chronic kidney 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 Surgical History History of colonoscopy History of hernia repair History of parathyroidectomy Social History Social History Household Members: None Housing: Condominium Do you presently have visiting nurse or other home services: Yes Alcohol intake: former Comment: patient refuses bed alarm, and refuses to wear non-skid red socks Patient Tobacco Use Status: Former Tobacco user Tobacco use type: Cigarette Cigarette Packs Per Day: 0.5 Cigarettes Per Day: 10.0 Years Smoked: 60 +/- Smoked in Last 30 Days: Yes e-Cigarette/Vaping Use: Currently Using Second Hand Smoke Exposure: Yes Use of substances other than those prescribed or required for medical reasons: No Advance Directives: Yes Advance Directives on File: Yes Advance Directives Date on File: 03/01/23 service: No Physical Exam Vital Signs: Vital Signs: Last Vital Signs Temp 98.6 F 01/06/25 14:00 Pulse 65 01/06/25 14:00 Resp 12 01/06/25 14:00 BP 134/64 01/06/25 14:00 Pulse Ox 95 01/06/25 14:00 O2 Del Method Room Air 01/06/25 14:00 BMI result Body Mass Index 20.6 Const: Other: Gen: ?Sitting up on the gurney, alert HEENT: PERRLA, EOMI, MMM, CV: RRR, no obvious murmurs appreciated Resp: ?No wheezing rales rhonchi no stridor moving air well Abd: ?Bowel sounds are present, no tenderness no rebound no rigidity MSK: decreased power in both legs, was not able to ambulate Skin: No jaundice, no bruising noted Neuro: ?Alert and oriented to self and location, unreliable hisotrian moving upper and lower extremities symmetrically, no obvious facial asymmetry noted Medications Administered Discontinued Medications Generic Name Dose Route Start Last Admin Trade Name Ary PRN Reason Stop Dose Admin Acetaminophen 975 mg 01/06/25 13:36 01/06/25 13:55 Acetaminophen 325 Mg Tablet PO 01/06/25 13:37 975 mg ONCE ONE Administration Medical Decision Making Medical Decision Making MDM Narrative: 12:07 when just finished speaking to patient's ex partner who is his friend in follow up of district attorney found him on the floor, he has been in bed since Tuesday not walking much patient denies that however he si not a reliable hisotrian and is likley confused,floor, he also missed her dialysis on Tuesday but he is also speaking to dialysis team about possibly going to hospice, he is very vague and not really disclose into much information although he is answering questions appropriately and not confused at the time of my initial evaluation, his friend states that when he does not want to do something he becomes like that and he has a known mood disorder, on exam I do not see any obvious trauma or deformities to the extremities, I will obtain imaging of the head to evaluate for any traumatic brain injury, any brain masses, unlikely that this is a stroke, she also told me he does have somebody who cleans department and once a week, he does get meals on wheels, whether this is going to be medical admission versus recommendation for rehab placement is to be determined I have asked her to come in and help me with helping him navigate else care in the next few hours once I know he absolutely has no reason for medical admission 15:38 CT of the brain is negative, we will also collect a urine sample, he tried to get up to go to the bathroom with the assistance he is not able to get up, he was also noted to be confused he was trying to plug an electric cord into a napkin singh to use as his phone, we will admit for metabolic encephalopathy, UA still pending Differential Diagnosis Differential Diagnoses: The differential diagnosis associated with the presentation includes Head injury, neck injury, syncope, ACS, hypokalemia, fluid overload Admission/Observation Consideration of admission/observation: Escalation of care including admission/observation considered Lab Data MDM Lab Attestation statement: I reviewed the patient's lab results. 01/06/25 11:57 01/06/25 11:57 Labs: Lab Results 01/06/25 01/06/25 01/06/25 Range/Units 11:57 12:03 14:17 WBC 5.6 (4.8-10.8) X10*3/uL RBC 3.68 L (4.60-5.80) X10*6/uL Hgb 11.8 L (14.0-18.0) g/dl Hct 34.1 L (42.0-52.0) % MCV 92.7 (80.0-98.0) fL MCH 32.1 (27.0-33.0) pg MCHC 34.6 (31.0-36.0) g/dl RDW 12.8 (11.0-16.0) % Plt Count 170 (160-400) X10*3/uL MPV 9.3 L (9.4-12.4) fL Immature Gran % (Auto) 0.5 H (0.0-0.4) % Neut % (Auto) 80.0 H (45-73) % Lymph % (Auto) 10.6 L (20-40) % Platte % (Auto) 8.3 (2-11) % Eos % (Auto) 0.4 (0-4) % Baso % (Auto) 0.2 (0-2) % Lymph # (Auto) 0.6 L (1.2-4.9) X10*3/uL Platte # (Auto) 0.5 (0.1-1.2) X10*3/uL Eos # (Auto) 0.0 (0.0-0.4) X10*3/uL Baso # (Auto) 0.0 (0.0-0.2) X10*3/uL Abs Immat Gran (auto) 0.03 (0.00-0.03) X10*3/uL Absolute Neuts (auto) 4.5 (2.0-8.3) x10*3/uL Absolute Nucleated RBC 0.000 (0.0-0.012) X10*3/uL Nucleated RBC % (auto) 0.0 (0.0-0.2) /100WBC Sodium 136 (135-145) mmol/L Potassium 5.0 D (3.3-5.1) mmol/L Chloride 95 L (96-108) mmol/L Carbon Dioxide 21 L (22-29) mmol/L Anion Gap 25 H (12-20) BUN 62 H (9-16) mg/dL Creatinine 9.20 H* (0.5-1.4) mg/dL Estim Creat Clear Calc 6.5 Estimated GFR 6 POC Glucose 72 (60-115) mg/dL Random Glucose 82 (60-115) mg/dL Calcium 9.0 (8.4-10.2) mg/dL Ammonia 25 (13-55) umol/L Radiology Impression Discussion of test interpretation with radiology: I have reviewed the radiologist's reading. Radiologist Impression: [address] [address] [address] Scan Report Signed Patient: Igor May MR#: [id number] : 1950 Acct:[id number] Age/Sex: 74 / M ADM Date: 01/06/25 Loc: .ED Attending Dr: Ordering Physician: Chong Cagle DO Date of Service: 01/06/25 Procedure(s): CT head/brain wo IV con Accession Number(s): [id number] cc: Gerald Davis MD; Chong Cagle Report Number: [id number]: Total DLP = 1091.00 mGy-cm CLINICAL HISTORY: fall CT head without contrast. COMPARISON: None provided. FINDINGS: The visualized paranasal sinuses are clear. The mastoid air cells are clear. No calvarial fracture. Atherosclerotic intracranial vasculature. No evidence for mass or mass effect. No intracranial hemorrhage or abnormal extra-axial fluid collection. The ventricles are proportional with the degree of mild global cerebral volume loss without evidence of hydrocephalus. Basilar cisterns are patent. Posterior fossa appears unremarkable. IMPRESSION: 1. No acute intracranial findings. Discharge Plan Discharge Print Language: Chilean
[2025-01-06 12:05] LABS: MANUAL DIFF FLAG NO
[2025-01-06 12:08] LABS: Basophils Percent Auto 0.2 % (0-2); Eosinophils Percent Auto 0.4 % (0-4); Hematocrit 34.1 % (42.0-52.0); Hemoglobin 11.8 g/dl (14.0-18.0); Imm Gran Abs Auto 0.03 X10*3/uL (0.00-0.03); Imm Gran Pct Auto 0.5 % (0.0-0.4); Lymphocytes Absolute Auto 0.6 X10*3/uL (1.2-4.9); Lymphocytes Percent Auto 10.6 % (20-40); Mean Corpuscular HGB Conc 34.6 g/dl (31.0-36.0); Mean Corpuscular Hemoglobin 32.1 pg (27.0-33.0); Mean Corpuscular Volume 92.7 fL (80.0-98.0); Mean Platelet Volume 9.3 fL (9.4-12.4); Monocytes Absolute Auto 0.5 X10*3/uL (0.1-1.2); Monocytes Percent Auto 8.3 % (2-11); Neutrophils Absolute Auto 4.5 x10*3/uL (2.0-8.3); Platelet Count 170 X10*3/uL (160-400); Red Blood Count 3.68 X10*6/uL (4.60-5.80); Red Cell Distribution Width 12.8 % (11.0-16.0); White Blood Count 5.6 X10*3/uL (4.8-10.8)
[2025-01-06 12:17] LABS: Ammonia 25 umol/L (13-55)
[2025-01-06 12:22] LABS: Anion Gap 25 (12-20); Blood Urea Nitrogen 62 mg/dL (9-16); Carbon Dioxide 21 mmol/L (22-29); Chloride 95 mmol/L (96-108); Creatinine Clr Calc Pharmacy 6.5; Estimated Glomerular Filt Rate 6; Glucose Random 82 mg/dL (60-115); Sodium 136 mmol/L (135-145)
[2025-01-06] MEDS: Acetaminophen 325 MG TABLET 975 MG PO (13:55)
[2025-01-06 14:20] LABS: Glucose, Whole Blood 72 mg/dL (60-115)
--- NOTE | 2025-01-06 15:57 | P.HPHOSP_ITS ---
History of Present Illness Date of Service: 01/06/25 Attending physician on admission: Dean Willis Chief Complaint: Wali May is a 71 years old man with past medical history significant for ESRD on hemodialysis (MWF), atrial flutter and essential hypertension was brought to the emergency department via EMS after he was found on the ground today by his ex-. HPI was mostly provided by patient's ex- with whom the patient's maintains a friendly relationship. According to ex- they have a habit of taking every morning over the phone. Today around 09:00 she phoned him but he did not brass pickler the phone and decided to check on him personally. Upon opening the door of his house, she found him on the ground facing up. He was alert but I was unable to stand up. The patient is a poor historian but he denied falling down. He said that his legs were too weak and was unable to reach the chair so he decide to lay on the ground. It is unknown for how long he was on the ground. He has some memory issues but has not been diagnosed with dementia. Patient complain of mild headache but denies symptoms such as palpitations, dizziness, chest pain, shortness on breath, abdominal pain, nausea, vomiting or diarrhea. His last bowel movement was 15 minutes ago and was normal. Patient continue to make urine despite having renal disease. He has an ongoing tobacco smoker. Denied alcohol abuse or illicit drug use. 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 In the ED, he was found to have stable vital signs. Last BP is 145/56. Blood workup is basically unremarkable. Hemoglobin is 11.8 which is at baseline. There is no leukocytosis and platelets are normal. BUN is 62 and creatinine 9.20. Potassium is 5.0, chloride 95, CO2 21, and annual 25. Random glucose is 72. Ammonia is 25. Head CT scan showed no acute intracranial abnormality. C- spine CT scan showed no dislocation or fracture. It did showed advanced multilevel cervical spondylosis and degenerative changes. Chart review: Echo May 2024: EF 50-50% with impaired relaxation filling patterns. Severely dilated left atrium, mild mitral regurgitation, mildly elevated right ventricular systolic pressure, mildly dilated ascending aorta at 4.1 cm and no gross pericardial effusion. ED tx: Acetaminophen 975 mg p.o. Review of Systems 2 Review of Systems: [facility]. [facility] Medical History CRF (chronic renal failure) ESRD (end stage renal disease) on dialysis Anemia ESRD (end stage renal disease) CKD (chronic kidney disease) Hypoxia Atrial flutter Nicotine dependence, cigarettes, uncomplicated AV fistula Essential hypertension Mood disorder Effusion, pericardium Pleural effusion, left Chronic kidney 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 Surgical History History of colonoscopy History of hernia repair History of parathyroidectomy Social History Household Members: None Housing: Condominium Do you presently have visiting nurse or other home services: Yes Alcohol intake: former Comment: patient refuses bed alarm, and refuses to wear non-skid red socks Patient Tobacco Use Status: Former Tobacco user Tobacco use type: Cigarette Cigarette Packs Per Day: 0.5 Cigarettes Per Day: 10.0 Years Smoked: 60 +/- Smoked in Last 30 Days: Yes e-Cigarette/Vaping Use: Currently Using Second Hand Smoke Exposure: Yes Use of substances other than those prescribed or required for medical reasons: No Advance Directives: Yes Advance Directives on File: Yes Advance Directives Date on File: 03/01/23 service: No Meds Allergies Allergy/AdvReac Type Severity Reaction Status Date / Time bupropion (From WELLBUTRIN) AdvReac Unknown CONSTIPATIO Verified 01/06/25 11:40 N NSAIDS (Non-Steroidal AdvReac Unknown RENAL Verified 01/06/25 11:40 Anti-Inflamma (NSAIDS (NON-STEROIDAL ANTI-INFLAMMA) [id number]-[id number] Reductase AdvReac Unknown UNK Verified 01/06/25 11:40 Inhibitor ([id number]-SEL-NLT REDUCTASE INHIBITOR) Home Medications ?Medication ?Instructions ?Recorded ?Confirmed ?Last Taken ?Type ascorbic acid (vitamin C) 500 mg 500 mg PO DAILY 02/2807/19/24 07/02/24 History tablet clonazepam 1 mg tablet 1 mg PO TID 02/28/2307/19/2 5 06/17/24 History cyanocobalamin (vitamin B-12) 1,000 mcg PO DAILY 02/2807/19/2407/02/24 History 1,000 mcg tablet furosemide 80 mg tablet 80 mg PO SUTUTHSA 02/28/23 0 07/19/24 07/01/24 History oxcarbazepine 600 mg tablet 600 mg PO BID 02/28/2309/1106/17/24 History prochlorperazine maleate 5 mg 5 mg PO BID 02/28/2309/1107/02/24 History tablet albuterol sulfate 90 mcg/actuation 2 puff inhalation Q 6H PRN 08/01/23 07/19/24 Unknown History aerosol inhaler (Ventolin HFA) Shortness Of Breath Or Wheezing vitamin B complex 1 tab PO DAILY 08/01/2309/1107/02/24 History lamotrigine 100 mg tablet 100 mg PO DAILY 04/04/2409/1106/17/24 History (Lamictal) meclizine 25 mg tablet 25 mg PO BID PRN dizziness 0 04/04/24 07/19/24 06/17/24 History sodium polystyrene sulfonate [facility] 07/03/24 07/19/24 Unknown History trazodone 50 mg tablet 50 mg PO BEDTIME PRN insomni a 07/03/24 07/19/24 Unknown History clonazepam 1 mg tablet 1 mg PO BEDTIME 01/06/25 Unknown History oxcarbazepine 600 mg tablet 600 mg PO BEDTIME 01/06/25 01/06/25 Unknown History ropinirole 2 mg tablet 2 mg PO BEDTIME 01/06/25 Unknown History Physical Exam 2 Vital Signs and Narrative: Vital Signs: Last Vital Signs Temp 98.6 F 01/06/25 14:00 Pulse 65 01/06/25 14:00 Resp 12 01/06/25 14:00 BP 134/64 01/06/25 14:00 Pulse Ox 95 01/06/25 14:00 O2 Del Method Room Air 01/06/25 14:00 BMI result Body Mass Index 20.6 Constitutional - Awake and Alert, No apparent distress. Pleasant. Cooperative. Confused at times. HEENT - PER, EOMI Heart - RRR, (+) murmur.. Lungs - Normal lung expansion, Normal respiratory effort, No respiratory distress, CTA bilaterally Abdomen - NT / ND; +BS; No rebound or guarding Extremities - no calf tenderness bilaterally, no swelling Musculoskeletal - generalized atrophy. Skin - Warm/Dry Neurological - Alert & oriented only to person and place. No focal weakness grossly noted. Strength: 4/5 lower extremities, 5/5 upper extremities. Normal speech. Psychological - Appropriate affect Results Labs 01/06/25 11:57 01/06/25 11:57 Labs: Laboratory Results - last 24 hr 01/06/25 01/06/25 01/06/25 11:57 12:03 14:17 MCV 92.7 MCH 32.1 MCHC 34.6 RDW 12.8 Plt Count 170 MPV 9.3 L Immature Gran % (Auto) 0.5 H Neut % (Auto) 80.0 H Lymph % (Auto) 10.6 L [place] % (Auto) 8.3 Eos % (Auto) 0.4 Baso % (Auto) 0.2 Lymph # (Auto) 0.6 L [place] # (Auto) 0.5 Eos # (Auto) 0.0 Baso # (Auto) 0.0 Abs Immat Gran (auto) 0.03 Absolute Neuts (auto) 4.5 Absolute Nucleated RBC 0.000 Nucleated RBC % (auto) 0.0 Anion Gap 25 H Estim Creat Clear Calc 6.5 Estimated GFR 6 POC Glucose 72 Random Glucose 82 Calcium 9.0 Ammonia 25 Assessment and Plan (1) Acute metabolic encephalopathy: Status: Acute (2) Recurrent falls: Status: Acute (3) Essential hypertension: Status: Acute (4) Mood disorder: Status: Acute Plan Igor May is a 71 y/o admitted with: * s/p Fall, recurrent falls at home + worsening weakness to the lower extremities. No evidence of trauma. Admit to hospitalist service. Fall precautions. Hold some sciatic such as clonazepam and trazodone. Check vitamin-D level. Obtain chest x-ray and EKG. Physiotherapy. * Confusion/acute encephalopathy likely metabolic. Possible related to medications + worsening renal clearance. Nephrology consult for inpatient hemodialysis (MWF). * High anion gap metabolic acidosis secondary to kidney disease, mild. Inpatient hemodialysis. Continue to monitor bicarb and anion gap. Check total CK. * Essential hypertension. Continue metoprolol and lisinopril. * Anemia of chronic disease. At baseline. Continue to monitor. * Mood disorder. Continue Lamictal, Trileptal and clonazepam. * History of atrial flutter. Check EKG now. Previous EKGs reviewed: Atrial flutter Continue metoprolol. * Nicotine dependence. Tobacco cessation education. DVT prophylaxis: Heparin Code status: Full Patient will need hospitalization for at least 2 midnights for acute confusion/encephalopathy associated with worsening renal failure after missing hemodialysis. Patient will need further workup and inpatient hemodialysis. Quality Stroke Does the patient have a stroke diagnosis?: No VTE Prior VTE?: No VTE Risk Level:: Medical - moderate - high VTE Device Contraindication: Treatment Not Indicated VTE Drug Contraindication: N/A - Med Ordered
--- NOTE | 2025-01-06 17:21 | PHA.MEDREC ---
Addendum entered by Yogesh Price [facility] 01/06/25 18:42: MED REC CHECKED BY [facility] Original Note: Pharmacy Consult ? Medication Reconciliation Pharmacy has completed the medication reconciliation. Spoke with patient and family at bedside to confirm medications. Patient had a med list from home. He is cutting back on clonazepam and is now taking 1/2 tab in the morning and at noon, and 1 full tab at bedtime. He is now taking oxcarbazepine 300 mg in the morning and 600 mg at bedtime. He takes meclizine bid scheduled. SPS and furosemide are on Non-dialysis days (SUTUTHSA). He has not taken vitamin D2 in a few months, last fill per [facility] was in January 2024. His list had Renvela on it with no dosing or frequency however there is no history of filling it at [facility]. He reports he took his medications this morning.
[2025-01-06 17:33] LABS: Troponin-I High Sensitivity 94.7 ng/L (<3.5-35.0)
[2025-01-06 17:46] LABS: D Dimer High Sensitivity 340 NG/ML
[2025-01-06] MEDS: amLODIPine Besylate 5 MG TABLET PO (21:51)
[2025-01-06] MEDS: clonazePAM 0.5 MG TABLET PO (21:51)
[2025-01-06] MEDS: OXcarbazepine 300 MG TABLET 600 MG PO (21:51)
[2025-01-06] MEDS: 0.9 % Sodium Chloride Flush 3 ML SYRINGE IVFLUSH (21:52)
[2025-01-06] MEDS: rOPINIRole HCL 2 MG TABLET PO (21:52)
[2025-01-07 04:00] VITALS: BP 163/74; PULSE 73; RESP 16; TEMP 37.2; O2SAT 94
--- NOTE | 2025-01-07 06:48 | PC.NURSE ---
Pt. arrived at 193 from ED. Pt. awake, and stating he is pissed off on arrival complaining of not eating all day. Pt. refusing VS, tele monitor or admission assessment until he has eaten. Pt's BP at 2050 was 180/78 manual w/ HR 65. I reported it to Dr. Og who came up to the floor. She ordered Norvasc 5mg, pt. received at 2150. Dr. Og wanted BP rechecked. PT. ABSOLUTELY REFUSING TO be WOKEN UP FOR BP. pt. agreeable to VS at 399, BP 163/74 at that time.
[2025-01-07 07:15] VITALS: BP 142/70; PULSE 67; RESP 18; TEMP 37.7; O2SAT 94
[2025-01-07 07:46] LABS: MANUAL DIFF FLAG NO
[2025-01-07 07:54] LABS: Basophils Percent Auto 0.4 % (0-2); Eosinophils Absolute Auto 0.1 X10*3/uL (0.0-0.4); Eosinophils Percent Auto 2.3 % (0-4); Hematocrit 32.6 % (42.0-52.0); Imm Gran Abs Auto 0.02 X10*3/uL (0.00-0.03); Imm Gran Pct Auto 0.4 % (0.0-0.4); Lymphocytes Absolute Auto 0.9 X10*3/uL (1.2-4.9); Lymphocytes Percent Auto 17.4 % (20-40); Mean Corpuscular HGB Conc 33.7 g/dl (31.0-36.0); Mean Corpuscular Hemoglobin 31.7 pg (27.0-33.0); Mean Corpuscular Volume 93.9 fL (80.0-98.0); Mean Platelet Volume 9.2 fL (9.4-12.4); Monocytes Absolute Auto 0.4 X10*3/uL (0.1-1.2); Neutrophils Absolute Auto 3.7 x10*3/uL (2.0-8.3); Neutrophils Percent Auto 71.5 % (45-73); Platelet Count 150 X10*3/uL (160-400); Red Blood Count 3.47 X10*6/uL (4.60-5.80); Red Cell Distribution Width 12.8 % (11.0-16.0); White Blood Count 5.1 X10*3/uL (4.8-10.8)
[2025-01-07 08:28] LABS: Anion Gap 22 (12-20); Blood Urea Nitrogen 72 mg/dL (9-16); Calcium 8.3 mg/dL (8.4-10.2); Carbon Dioxide 23 mmol/L (22-29); Chloride 96 mmol/L (96-108); Creatinine Clr Calc Pharmacy 5.8; Estimated Glomerular Filt Rate 5; Glucose Random 86 mg/dL (60-115); Magnesium 2.5 mg/dL (1.6-2.6); Phosphorus 6.7 mg/dL (2.7-4.5); Potassium 5.3 mmol/L (3.3-5.1); Sodium 136 mmol/L (135-145)
[2025-01-07] MEDS: OXcarbazepine 300 MG TABLET PO (08:49)
[2025-01-07] MEDS: Metoprolol Succinate ER 25 MG TAB.ER.24H PO (08:50)
[2025-01-07] MEDS: Multivitamin TABLET 1 TAB PO (08:50)
[2025-01-07] MEDS: Ascorbic Acid 500 MG TABLET 1000 MG PO (08:50)
[2025-01-07] MEDS: clonazePAM 0.5 MG TABLET PO ×2 (08:50→20:13)
[2025-01-07] MEDS: Cyanocobalamin (Vitamin B-12) 1,000 MCG TABLET 1000 MCG PO (08:50)
[2025-01-07] MEDS: lisinopriL 20 MG TABLET PO (08:50)
[2025-01-07] MEDS: 0.9 % Sodium Chloride Flush 3 ML SYRINGE IVFLUSH (08:50)
[2025-01-07] MEDS: lamoTRIgine 100 MG TABLET PO (08:50)
[2025-01-07] MEDS: Heparin Sodium,Porcine 5,000 UNIT/ML VIAL 5000 UNIT SUBCUT (08:50)
[2025-01-07 09:18] LABS: Vitamin D 25-OH Total 31.9 ng/mL (>30)
--- NOTE | 2025-01-07 09:22 | P.CONNP_ITS ---
History of Present Illness Reason for Consult Consult date: 01/07/25 Chief Complaint Chief complaint: Acute encephalopathy History of Present Illness Narrative: 74 years old man with past medical history significant for ESRD on hemodialysis (MWF), nonsustained ventricular tachycardia, mood disorder, atrial flutter and essential hypertension was brought to the emergency department via EMS after he was found on the ground today by his ex-.. she found him on the ground facing up. He was alert but was unable to stand up. The patient is a poor historian but he denied falling down. Patient continue to make urine PMFSH Past Medical History Medical History (Updated 01/07/25 @ 16:10 by Dedra Bustos PA-C) ESRD (end stage renal disease) on dialysis CRF (chronic renal failure) Anemia ESRD (end stage renal disease) CKD (chronic kidney disease) Hypoxia Atrial flutter Nicotine dependence, cigarettes, uncomplicated AV fistula Essential hypertension Mood disorder Effusion, pericardium Pleural effusion, left Chronic kidney 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 Surgical History Surgical History History of colonoscopy History of hernia repair History of parathyroidectomy Social History Social History Household Members: None Housing: House Do you presently have visiting nurse or other home services: Yes ([facility]) Alcohol intake: former Comment: patient refuses bed alarm, and refuses to wear non-skid red socks Patient Tobacco Use Status: Former Tobacco user Tobacco use type: Cigarette Cigarette Packs Per Day: 0.5 Cigarettes Per Day: 10.0 Years Smoked: 60 +/- e-Cigarette/Vaping Use: Currently Using Second Hand Smoke Exposure: Yes Advance Directives Date on File: 03/01/23 service: No Meds Allergies Allergy/AdvReac Type Severity Reaction Status Date / Time bupropion (From WELLBUTRIN) AdvReac Unknown CONSTIPATIO Verified 01/06/25 11:40 N NSAIDS (Non-Steroidal AdvReac Unknown RENAL Verified 01/06/25 11:40 Anti-Inflamma (NSAIDS (NON-STEROIDAL ANTI-INFLAMMA) [id number]-[id number] Reductase AdvReac Unknown UNK Verified 01/06/25 11:40 Inhibitor ([id number] REDUCTASE INHIBITOR) Active Medications: Current Medications Acetaminophen (Acetaminophen 325 Mg Tablet) 975 mg PO Q6H PRN PRN Reason: Pain, Mild 1-3,fever,headache Albuterol Sulfate (Albuterol Sulfate 90 Mcg 8 Gm Inhaler) 2 puff INHALE Q6H PRN PRN Reason: Shortness Of Breath Or Wheezing Amlodipine Besylate (Amlodipine Besylate 5 Mg Tablet) 5 mg PO BEDTIME [facility]; Protocol Last Admin: 01/06/25 21:51 Dose: 5 mg Ascorbic Acid (Ascorbic Acid 500 Mg Tablet) 1,000 mg PO DAILY [facility] Last Admin: 01/07/25 08:50 Dose: 1,000 mg Calcium Carbonate (Calcium Carbonate 750 Mg Tab.Chew) 750 mg PO Q4H PRN PRN Reason: Heartburn Clonazepam (Clonazepam 0.5 Mg Tablet) 0.5 mg PO BID [facility] Last Admin: 01/07/25 08:50 Dose: 0.5 mg Cyanocobalamin (Cyanocobalamin (Vitamin B-12) 1,000 Mcg Tablet) 1,000 mcg PO DAILY [facility] Last Admin: 01/07/25 08:50 Dose: 1,000 mcg Furosemide (Furosemide 40 Mg Tablet) 80 mg PO SuTuThSa@0900 [facility]; Protocol Heparin Sodium (Porcine) (Heparin Sodium,Porcine 5,000 Unit/Ml Vial) 5,000 unit SUBCUT Q12H [facility] Last Admin: 01/07/25 08:50 Dose: 5,000 unit Lamotrigine (Lamotrigine 100 Mg Tablet) 100 mg PO DAILY [facility] Last Admin: 01/07/25 08:50 Dose: 100 mg Lisinopril (Lisinopril 20 Mg Tablet) 20 mg PO DAILY [facility]; Protocol Last Admin: 01/07/25 08:50 Dose: 20 mg Magnesium Hydroxide (Milk Of Magnesia 30 Ml Oral.Susp) 30 ml PO DAILY PRN PRN Reason: Constipation Melatonin (Melatonin 3 Mg Tablet) 6 mg PO BEDTIME PRN PRN Reason: Insomnia Metoprolol Succinate (Metoprolol Succinate Er 25 Mg Tab.Er.24h) 25 mg PO DAILY [facility]; Protocol Last Admin: 01/07/25 08:50 Dose: 25 mg Multivitamins/Vitamin C (Multivitamin Tablet) 1 tab PO DAILY [facility] Last Admin: 01/07/25 08:50 Dose: 1 tab Oxcarbazepine (Oxcarbazepine 300 Mg Tablet) 600 mg PO BEDTIME [facility] Last Admin: 01/06/25 21:51 Dose: 600 mg Oxcarbazepine (Oxcarbazepine 300 Mg Tablet) 300 mg PO DAILY [facility] Last Admin: 01/07/25 08:49 Dose: 300 mg Ropinirole HCl (Ropinirole Hcl 2 Mg Tablet) 2 mg PO BEDTIME [facility] Last Admin: 01/06/25 21:52 Dose: 2 mg Sodium Chloride (0.9 % Sodium Chloride Flush 3 Ml Syringe) 3 ml IVFLUSH QSHIFT [facility] Last Admin: 01/07/25 08:50 Dose: 3 ml Sodium Polystyrene Sulfonate (Sodium Polystyrene Sulfon/Sorb 15 Gm/60 Ml Oral.Susp) 15 gm PO SuTuThSa@0900 [facility] Home Medications ?Medication ?Instructions ?Recorded ?Confirmed ?Last Taken ?Type ascorbic acid (vitamin C) 500 mg 1,000 mg PO DAILY 01/06/25 07/02/24 History tablet clonazepam 1 mg tablet 0.5 mg PO BID@0900,1200 02/1501/06/25 06/17/24 History cyanocobalamin (vitamin B-12) 1,000 mcg PO DAILY 02/2801/06/25 07/02/24 History 1,000 mcg tablet furosemide 80 mg tablet 80 mg PO SUTUTHSA 02/28/23 0 01/06/25 07/01/24 History oxcarbazepine 600 mg tablet 300 mg PO QAM 02/28/2306/17/24 History prochlorperazine maleate 5 mg 5 mg PO BID 02/28/2307/02/24 History tablet albuterol sulfate 90 mcg/actuation 2 puff inhalation Q 6H PRN 08/01/23 01/06/25 Unknown History aerosol inhaler (Ventolin HFA) Shortness Of Breath Or Wheezing vitamin B complex 1 tab PO DAILY 08/01/2312/1707/02/24 History lamotrigine 100 mg tablet 100 mg PO DAILY 04/04/2406/17/24 History (Lamictal) meclizine 25 mg tablet 25 mg PO BID dizziness 04/0401/06/25 06/17/24 History sodium polystyrene sulfonate 15 g PO SUTUTHSA 07/03/24 01/06/25 Unknown History trazodone 50 mg tablet 50 mg PO BEDTIME insomnia 01/06/25 Unknown History clonazepam 1 mg tablet 1 mg PO BEDTIME 01/06/25 Unknown History oxcarbazepine 600 mg tablet 600 mg PO BEDTIME 01/06/25 01/06/25 Unknown History ropinirole 2 mg tablet 2 mg PO BEDTIME 01/06/25 Unknown History Physical Exam Vital Signs: Last Vital Signs Temp 99.8 F 01/07/25 07:15 Pulse 67 01/07/25 07:15 Resp 18 01/07/25 07:15 BP 142/70 H 01/07/25 07:15 Pulse Ox 94 01/07/25 07:15 O2 Del Method Room Air 01/07/25 07:15 BMI result Body Mass Index 21.5 cvs: s1s2 RS; cta ABd; soft Results Lab Results 01/07/25 07:10 01/07/25 07:10 Lab results: Chemistry 01/06/25 01/07/25 11:57 07:10 Sodium 136 136 Potassium 5.0 D 5.3 H Carbon Dioxide 21 L 23 BUN 62 H 72 H Creatinine 9.20 H* 10.72 H* Calcium 9.0 8.3 L D Phosphorus 6.7 H Hematology 01/06/25 01/07/25 11:57 07:10 WBC 5.6 5.1 Hgb 11.8 L 11.0 L Plt Count 170 150 L Assessment and Plan (1) ESRD (end stage renal disease) on dialysis: Status: Acute Plan Patient is a 74 year old male past medical history significant for end-stage renal disease hemodialysis MWF, atrial flutter, hypertension, mood disorder, chronic anemia, ATTR-CM, grade I COPD and RYAN on CPAP, presents for found down, weakness - unable to rule out a fall. Plan to admit for dialysis and monitoring due to hyperkalemia. ESRD: usu HD mwf; last HD Sat HyperK HTN- On metoprolol, [id number], lisionpril 40 REC: HD today low K bath; Procedures Date of Service Date of Service: 01/07/25
--- NOTE | 2025-01-07 10:33 | MHC.CM.PN ---
IMM 01/07. Pt self-care, lives alone at home, has a house keeper. Pt uses a walker. He goes to HD at [facility] on . Pt can arrange transportation if going home at discharge. HCP on file and verified. PCP: Dr. Gerald Davis
[2025-01-07 11:13] VITALS: BP 152/72; PULSE 64; RESP 18; TEMP 37.1; O2SAT 96
[2025-01-07 12:50] LABS: Troponin-I High Sensitivity 115.3 ng/L (<3.5-35.0)
[2025-01-07 13:43] LABS: Color Urine Yellow; Glucose Urine UA Negative (Negative); Leukocyte Esterase Urine Negative (Negative); Nitrite Urine Negative (Negative); UMIC TRIGGER UACC YES; Urine Blood Small (1+) (Negative); Urine Ketones Negative (Negative); Urine Protein 100 (2+) mg/dL (Neg-Trace)
[2025-01-07 13:44] LABS: Appearance Urine Hazy
[2025-01-07 13:55] LABS: Bacteria Urine None Seen (None Seen); Hyaline Casts Urine 0-2 /LPF (0-2); RBC Urine 0-2 /HPF (0-2); Squamous Epithelial Cell Urine 0-2 /HPF (0-2); WBC Urine 0-5 /HPF (0-5)
--- NOTE | 2025-01-07 15:59 | HO.PM.IMPN ---
Subjective Subjective Date of Service: 01/07/25 Interval History: Follow-up acute encephalopathy Patient is still confused. Denies chest pain, shortness of breath, nausea or vomiting. Unaware of fall Review of Systems Review of Systems: Yes all other systems are reviewed and are negative Physical Exam Vital Signs: Vital Signs: Last Vital Signs Temp 98.8 F 01/07/25 11:13 Pulse 64 01/07/25 11:13 Resp 18 01/07/25 11:13 BP 152/72 H 01/07/25 11:13 Pulse Ox 96 01/07/25 11:13 O2 Del Method Room Air 01/07/25 11:13 BMI result Body Mass Index 21.5 General: Delayed response to questions, alert and oriented to person and place, unaware of time. No acute distress Resp: CTA bilaterally CVS: S1, S2, RRR GI: +BS, NT, no distention Skin: Warm, dry Neuro: Cranial nerves II-XII grossly intact bilaterally. Motor grossly intact bilaterally Extremities: No pitting edema Psych: Confused Objective Data Active Medications Acetaminophen (Acetaminophen 325 Mg Tablet) 975 mg PO Q6H PRN PRN Reason: Pain, Mild 1-3,fever,headache Albuterol Sulfate (Albuterol Sulfate 90 Mcg 8 Gm Inhaler) 2 puff INHALE Q6H PRN PRN Reason: Shortness Of Breath Or Wheezing Amlodipine Besylate (Amlodipine Besylate 5 Mg Tablet) 5 mg PO BEDTIME [facility]; Protocol Last Admin: 01/06/25 21:51 Dose: 5 mg Documented By: HAZEL Ascorbic Acid (Ascorbic Acid 500 Mg Tablet) 1,000 mg PO DAILY [facility] Last Admin: 01/07/25 08:50 Dose: 1,000 mg Documented By: GHANSHYAM Calcium Carbonate (Calcium Carbonate 750 Mg Tab.Chew) 750 mg PO Q4H PRN PRN Reason: Heartburn Clonazepam (Clonazepam 0.5 Mg Tablet) 0.5 mg PO BID [facility] Last Admin: 01/07/25 08:50 Dose: 0.5 mg Documented By: GHANSHYAM Cyanocobalamin (Cyanocobalamin (Vitamin B-12) 1,000 Mcg Tablet) 1,000 mcg PO DAILY [facility] Last Admin: 01/07/25 08:50 Dose: 1,000 mcg Documented By: GHANSHYAM Furosemide (Furosemide 40 Mg Tablet) 80 mg PO [facility]@0900 [facility]; Protocol Heparin Sodium (Porcine) (Heparin Sodium,Porcine 5,000 Unit/Ml Vial) 5,000 unit SUBCUT Q12H [facility] Last Admin: 01/07/25 08:50 Dose: 5,000 unit Documented By: GHANSHYAM Lamotrigine (Lamotrigine 100 Mg Tablet) 100 mg PO DAILY [facility] Last Admin: 01/07/25 08:50 Dose: 100 mg Documented By: GHANSHYAM Lisinopril (Lisinopril 20 Mg Tablet) 20 mg PO DAILY [facility]; Protocol Last Admin: 01/07/25 08:50 Dose: 20 mg Documented By: GHANSHYAM Magnesium Hydroxide (Milk Of Magnesia 30 Ml Oral.Susp) 30 ml PO DAILY PRN PRN Reason: Constipation Melatonin (Melatonin 3 Mg Tablet) 6 mg PO BEDTIME PRN PRN Reason: Insomnia Metoprolol Succinate (Metoprolol Succinate Er 25 Mg Tab.Er.24h) 25 mg PO DAILY [facility]; Protocol Last Admin: 01/07/25 08:50 Dose: 25 mg Documented By: GHANSHYAM Multivitamins/Vitamin C (Multivitamin Tablet) 1 tab PO DAILY [facility] Last Admin: 01/07/25 08:50 Dose: 1 tab Documented By: GHANSHYAM Oxcarbazepine (Oxcarbazepine 300 Mg Tablet) 600 mg PO BEDTIME [facility] Last Admin: 01/06/25 21:51 Dose: 600 mg Documented By: HAZEL Oxcarbazepine (Oxcarbazepine 300 Mg Tablet) 300 mg PO DAILY [facility] Last Admin: 01/07/25 08:49 Dose: 300 mg Documented By: GHANSHYAM Ropinirole HCl (Ropinirole Hcl 2 Mg Tablet) 2 mg PO BEDTIME [facility] Last Admin: 01/06/25 21:52 Dose: 2 mg Documented By: HAZEL Sodium Chloride (0.9 % Sodium Chloride Flush 3 Ml Syringe) 3 ml IVFLUSH QSHIFT [facility] Last Admin: 01/07/25 08:50 Dose: 3 ml Documented By: GHANSHYAM Sodium Polystyrene Sulfonate (Sodium Polystyrene Sulfon/Sorb 15 Gm/60 Ml Oral.Susp) 15 gm PO SuTuThSa@0900 [facility] Labs 01/07/25 07:10 01/07/25 07:10 Labs: Laboratory Results - last 24 hr 01/06/25 01/06/25 01/07/25 11:57 17:08 07:10 MCV 93.9 MCH 31.7 MCHC 33.7 RDW 12.8 Plt Count 150 L MPV 9.2 L Immature Gran % (Auto) 0.4 Neut % (Auto) 71.5 Lymph % (Auto) 17.4 L [place] % (Auto) 8.0 Eos % (Auto) 2.3 Baso % (Auto) 0.4 Lymph # (Auto) 0.9 L [place] # (Auto) 0.4 Eos # (Auto) 0.1 Baso # (Auto) 0.0 Abs Immat Gran (auto) 0.02 Absolute Neuts (auto) 3.7 Absolute Nucleated RBC 0.000 Nucleated RBC % (auto) 0.0 D-Dimer High Sensitivty 340 Anion Gap 22 H Estim Creat Clear Calc 5.8 Estimated GFR 5 Random Glucose 86 Calcium 8.3 L D Phosphorus 6.7 H Magnesium 2.5 Total Creatine Kinase 957 H 3580 H Troponin I High Sens 94.7 H D 115.3 H* 25-OH Vitamin D Total 31.9 Urine Color Urine Appearance Urine pH Ur Specific [place] Urine Protein Urine Glucose (UA) Urine Ketones Urine Blood Urine Nitrite Ur Leukocyte Esterase Urine RBC Urine WBC Ur Squamous Epith Cells Urine Bacteria Hyaline Casts 01/07/25 12:55 MCV MCH MCHC RDW Plt Count MPV Immature Gran % (Auto) Neut % (Auto) Lymph % (Auto) [place] % (Auto) Eos % (Auto) Baso % (Auto) Lymph # (Auto) [place] # (Auto) Eos # (Auto) Baso # (Auto) Abs Immat Gran (auto) Absolute Neuts (auto) Absolute Nucleated RBC Nucleated RBC % (auto) D-Dimer High Sensitivty Anion Gap Estim Creat Clear Calc Estimated GFR Random Glucose Calcium Phosphorus Magnesium Total Creatine Kinase Troponin I High Sens 25-OH Vitamin D Total Urine Color Yellow Urine Appearance Hazy Urine pH 7.0 Ur Specific [place] 1.010 Urine Protein 100 (2+) H Urine Glucose (UA) Negative Urine Ketones Negative Urine Blood Small (1+) H Urine Nitrite Negative Ur Leukocyte Esterase Negative Urine RBC 0-2 Urine WBC 0-5 Ur Squamous Epith Cells 0-2 Urine Bacteria None Seen Hyaline Casts 0-2 Assessment and Plan (1) Acute metabolic encephalopathy: Status: Acute (2) Recurrent falls: Status: Acute (3) Rhabdomyolysis: Status: Acute Plan 71-year-old male admitted s/p recurrent falls at home, worsening weakness, encephalopathy S/p fall, rhabdo, worsening weakness - no evidence of trauma - fall precautions - psych meds likely contributing - CPK 3580 - LR 75ml/hr x1L, recheck CPK tomorrow - elevated trop, 94.7 then 115 - EKG non-ischemic - follow CPK and BMP Acute metabolic encephalopathy - secondary to worsening renal clearance - nephrology consult: Dialysis today ESRD on HD MWF - has not missed session per pt - hx of noncompliance - nephrology consulted HTN - metoprolol and lisinopril Acute on chronic anemia - at baseline Mood disorder - continue Lamictal, Trileptal and clonazepam History AFib - EKG with a flutters - continue metoprolol Nicotine dependence - tobacco cessation discussed Full code Heparin Patient requiring continued admission due to acute metabolic encephalopathy, likely secondary to worsening mental clearance Quality Stroke Does the patient have a stroke diagnosis?: No VTE Prior VTE?: No VTE Risk Level:: Medical - moderate - high VTE Device Contraindication: Treatment Not Indicated VTE Drug Contraindication: N/A - Med Ordered
[2025-01-07 17:44] LABS: Troponin-I High Sensitivity 109.4 ng/L (<3.5-35.0)
[2025-01-07] MEDS: Lactated Ringers 1,000 ML 50 ML IVCONT (18:00)
[2025-01-07 19:47] VITALS: BP 162/70; PULSE 70; RESP 16; TEMP 36.9; O2SAT 97
[2025-01-07] MEDS: rOPINIRole HCL 2 MG TABLET PO (20:13)
[2025-01-07] MEDS: Melatonin 3 MG TABLET 6 MG PO (20:13)
[2025-01-07] MEDS: amLODIPine Besylate 5 MG TABLET PO (20:13)
[2025-01-07] MEDS: OXcarbazepine 300 MG TABLET 600 MG PO (20:13)
[2025-01-08] VITALS (7 sets, daily range): BP systolic 132–168; BP diastolic 56–72; PULSE 51–70; RESP 12–18; TEMP 36.6–37.4; O2SAT 95–99
[2025-01-08] MEDS: Sodium Polystyrene Sulfon/Sorb 15 GM/60 ML ORAL.SUSP PO (07:58)
[2025-01-08] MEDS: 0.9 % Sodium Chloride Flush 3 ML SYRINGE IVFLUSH ×3 (07:58→19:55)
[2025-01-08] MEDS: Cyanocobalamin (Vitamin B-12) 1,000 MCG TABLET 1000 MCG PO (07:59)
[2025-01-08] MEDS: Furosemide 40 MG TABLET 80 MG PO (07:59)
[2025-01-08] MEDS: lisinopriL 20 MG TABLET PO (07:59)
[2025-01-08] MEDS: clonazePAM 0.5 MG TABLET PO ×2 (07:59→19:53)
[2025-01-08] MEDS: Multivitamin TABLET 1 TAB PO (08:00)
[2025-01-08] MEDS: OXcarbazepine 300 MG TABLET 600 MG PO ×2 (08:00→19:53)
[2025-01-08] MEDS: Ascorbic Acid 500 MG TABLET 1000 MG PO (08:00)
[2025-01-08] MEDS: Metoprolol Succinate ER 25 MG TAB.ER.24H PO (08:00)
[2025-01-08] MEDS: lamoTRIgine 100 MG TABLET PO (08:00)
[2025-01-08 09:11] LABS: MANUAL DIFF FLAG NO
[2025-01-08 09:22] LABS: Basophils Percent Auto 0.7 % (0-2); Eosinophils Absolute Auto 0.1 X10*3/uL (0.0-0.4); Eosinophils Percent Auto 3.3 % (0-4); Hematocrit 32.5 % (42.0-52.0); Hemoglobin 11.6 g/dl (14.0-18.0); Imm Gran Abs Auto 0.01 X10*3/uL (0.00-0.03); Imm Gran Pct Auto 0.2 % (0.0-0.4); Lymphocytes Absolute Auto 1.1 X10*3/uL (1.2-4.9); Lymphocytes Percent Auto 26.5 % (20-40); Mean Corpuscular HGB Conc 35.7 g/dl (31.0-36.0); Mean Corpuscular Hemoglobin 32.6 pg (27.0-33.0); Mean Corpuscular Volume 91.3 fL (80.0-98.0); Mean Platelet Volume 9.2 fL (9.4-12.4); Monocytes Absolute Auto 0.4 X10*3/uL (0.1-1.2); Monocytes Percent Auto 10.2 % (2-11); Neutrophils Absolute Auto 2.5 x10*3/uL (2.0-8.3); Neutrophils Percent Auto 59.1 % (45-73); Platelet Count 142 X10*3/uL (160-400); Red Blood Count 3.56 X10*6/uL (4.60-5.80); Red Cell Distribution Width 12.8 % (11.0-16.0); White Blood Count 4.2 X10*3/uL (4.8-10.8)
[2025-01-08 09:28] LABS: Ammonia 30 umol/L (13-55)
[2025-01-08 09:40] LABS: Alanine Aminotransferase 39 U/L (0-40); Albumin Level 4.2 g/dL (3.5-5.0); Alkaline Phosphatase 69 U/L (39-117); Anion Gap 19 (12-20); Aspartate Amino Transferase 80 U/L (5-37); Bilirubin Total 0.5 mg/dL (0.0-1.0); Blood Urea Nitrogen 34 mg/dL (9-16); Calcium 8.4 mg/dL (8.4-10.2); Carbon Dioxide 27 mmol/L (22-29); Chloride 95 mmol/L (96-108); Creatinine Clr Calc Pharmacy 9.7; Estimated Glomerular Filt Rate 8; Glucose Random 91 mg/dL (60-115); Potassium 4.1 mmol/L (3.3-5.1); Sodium 137 mmol/L (135-145); Total Protein 6.6 g/dL (6.5-8.0)
[2025-01-08] MEDS: OXcarbazepine 300 MG TABLET PO (10:28)
[2025-01-08 13:29] LABS: CDiff Gene PCR NEGATIVE (Negative)
--- NOTE | 2025-01-08 13:53 | HO.PM.IMPN ---
Subjective Subjective Date of Service: 01/08/25 Interval History: f/u acute encephalopathy Patient mentating better today, had dialysis yesterday Having severe diarrhea, watery, no blood in the stool, no abdominal pain, nausea or vomiting No recent antibiotics or travel Requesting to speak with plastic molding operator regarding prognosis Review of Systems Review of Systems: Yes all other systems are reviewed and are negative Physical Exam Vital Signs: Vital Signs: Last Vital Signs Temp 98.9 F 01/08/25 11:22 Pulse 66 01/08/25 11:22 Resp 18 01/08/25 11:22 BP 133/61 01/08/25 11:22 Pulse Ox 97 01/08/25 11:22 O2 Del Method Room Air 01/08/25 11:22 BMI result Body Mass Index 21.5 General: AOx3, no acute distress Resp: CTA bilaterally CVS: S1, S2, RRR GI: +BS, NT, no distention Skin: Warm, dry Neuro: Cranial nerves II-XII grossly intact bilaterally. Motor grossly intact bilaterally Extremities: No LE edema Psych: Appropriate affect Objective Data Active Medications Acetaminophen (Acetaminophen 325 Mg Tablet) 975 mg PO Q6H PRN PRN Reason: Pain, Mild 1-3,fever,headache Albuterol Sulfate (Albuterol Sulfate 90 Mcg 8 Gm Inhaler) 2 puff INHALE Q6H PRN PRN Reason: Shortness Of Breath Or Wheezing Amlodipine Besylate (Amlodipine Besylate 5 Mg Tablet) 5 mg PO BEDTIME [facility]; Protocol Last Admin: 01/07/25 20:13 Dose: 5 mg Documented By: YANI Ascorbic Acid (Ascorbic Acid 500 Mg Tablet) 1,000 mg PO DAILY [facility] Last Admin: 01/08/25 08:00 Dose: 1,000 mg Documented By: DIANN Calcium Carbonate (Calcium Carbonate 750 Mg Tab.Chew) 750 mg PO Q4H PRN PRN Reason: Heartburn Clonazepam (Clonazepam 0.5 Mg Tablet) 0.5 mg PO BID [facility] Last Admin: 01/08/25 07:59 Dose: 0.5 mg Documented By: DIANN Cyanocobalamin (Cyanocobalamin (Vitamin B-12) 1,000 Mcg Tablet) 1,000 mcg PO DAILY [facility] Last Admin: 01/08/25 07:59 Dose: 1,000 mcg Documented By: DIANN Furosemide (Furosemide 40 Mg Tablet) 80 mg PO [facility]Th[facility]@0900 [facility]; Protocol Last Admin: 01/08/25 07:59 Dose: 80 mg Documented By: DIANN Heparin Sodium (Porcine) (Heparin Sodium,Porcine 5,000 Unit/Ml Vial) 5,000 unit SUBCUT Q12H [facility] Last Admin: 01/08/25 09:57 Dose: Not Given Documented By: DIANN Non-Admin Reason: Patient Refused Lamotrigine (Lamotrigine 100 Mg Tablet) 100 mg PO DAILY [facility] Last Admin: 01/08/25 08:00 Dose: 100 mg Documented By: DIANN Lisinopril (Lisinopril 20 Mg Tablet) 20 mg PO DAILY [facility]; Protocol Last Admin: 01/08/25 07:59 Dose: 20 mg Documented By: DIANN Magnesium Hydroxide (Milk Of Magnesia 30 Ml Oral.Susp) 30 ml PO DAILY PRN PRN Reason: Constipation Melatonin (Melatonin 3 Mg Tablet) 6 mg PO BEDTIME PRN PRN Reason: Insomnia Last Admin: 01/07/25 20:13 Dose: 6 mg Documented By: YANI Metoprolol Succinate (Metoprolol Succinate Er 25 Mg Tab.Er.24h) 25 mg PO DAILY [facility]; Protocol Last Admin: 01/08/25 08:00 Dose: 25 mg Documented By: DIANN Multivitamins/Vitamin C (Multivitamin Tablet) 1 tab PO DAILY [facility] Last Admin: 01/08/25 08:00 Dose: 1 tab Documented By: DIANN Oxcarbazepine (Oxcarbazepine 300 Mg Tablet) 600 mg PO BEDTIME [facility] Last Admin: 01/08/25 08:00 Dose: 600 mg Documented By: DIANN Oxcarbazepine (Oxcarbazepine 300 Mg Tablet) 300 mg PO DAILY [facility] Last Admin: 01/08/25 10:28 Dose: 300 mg Documented By: DIANN Ropinirole HCl (Ropinirole Hcl 2 Mg Tablet) 2 mg PO BEDTIME [facility] Last Admin: 01/07/25 20:13 Dose: 2 mg Documented By: YANI Sodium Chloride (0.9 % Sodium Chloride Flush 3 Ml Syringe) 3 ml IVFLUSH QSHIFT [facility] Last Admin: 01/08/25 07:58 Dose: 3 ml Documented By: DIANN Sodium Polystyrene Sulfonate (Sodium Polystyrene Sulfon/Sorb 15 Gm/60 Ml Oral.Susp) 15 gm PO SuTuThSa@0900 [place] Last Admin: 01/08/25 07:58 Dose: 15 gm Documented By: DIANN Labs 01/08/25 09:03 01/08/25 09:03 Labs: Laboratory Results - last 24 hr 01/07/25 01/07/25 01/08/25 12:55 16:53 06:08 MCV MCH MCHC RDW Plt Count MPV Immature Gran % (Auto) Neut % (Auto) Lymph % (Auto) [place] % (Auto) Eos % (Auto) Baso % (Auto) Lymph # (Auto) [place] # (Auto) Eos # (Auto) Baso # (Auto) Abs Immat Gran (auto) Absolute Neuts (auto) Absolute Nucleated RBC Nucleated RBC % (auto) Hold Purple Top SEE NOTE Anion Gap Estim Creat Clear Calc Estimated GFR Random Glucose Calcium Total Bilirubin AST ALT Alkaline Phosphatase Ammonia Total Creatine Kinase 3707 H Troponin I High Sens 109.4 H* Total Protein Albumin Urine RBC 0-2 Urine WBC 0-5 Ur Squamous Epith Cells 0-2 Urine Bacteria None Seen Hyaline Casts 0-2 C. difficile Tox B Gene 01/08/25 01/08/25 09:03 12:35 MCV 91.3 MCH 32.6 MCHC 35.7 RDW 12.8 Plt Count 142 L MPV 9.2 L Immature Gran % (Auto) 0.2 Neut % (Auto) 59.1 Lymph % (Auto) 26.5 [place] % (Auto) 10.2 Eos % (Auto) 3.3 Baso % (Auto) 0.7 Lymph # (Auto) 1.1 L [place] # (Auto) 0.4 Eos # (Auto) 0.1 Baso # (Auto) 0.0 Abs Immat Gran (auto) 0.01 Absolute Neuts (auto) 2.5 Absolute Nucleated RBC 0.000 Nucleated RBC % (auto) 0.0 Hold Purple Top Anion Gap 19 Estim Creat Clear Calc 9.7 Estimated GFR 8 Random Glucose 91 Calcium 8.4 Total Bilirubin 0.5 AST 80 H ALT 39 Alkaline Phosphatase 69 Ammonia 30 Total Creatine Kinase Troponin I High Sens Total Protein 6.6 Albumin 4.2 Urine RBC Urine WBC Ur Squamous Epith Cells Urine Bacteria Hyaline Casts C. difficile Tox B Gene NEGATIVE Assessment and Plan (1) Acute metabolic encephalopathy: Status: Acute (2) ESRD (end stage renal disease) on dialysis: Status: Acute (3) Rhabdomyolysis: Status: Acute (4) Recurrent falls: Status: Acute Plan 71-year-old male admitted s/p recurrent falls at home, worsening weakness, encephalopathy S/p fall, rhabdo, worsening weakness - no evidence of trauma - fall precautions - psych meds likely contributing - CPK 3580 yesterday, 3707 now - elevated trop, 94.7, 115, 109.4 - EKG non-ischemic - follow CPK and BMP - appreciate nephro input on CPK Acute metabolic encephalopathy - improved - secondary to worsening renal clearance - nephrology consult Diarrhea - GI panel and cdiff ESRD on HD MWF - has not missed session per pt - hx of noncompliance - nephrology consulted HTN - metoprolol and lisinopril Acute on chronic anemia - at baseline Mood disorder - continue Lamictal, Trileptal and clonazepam History AFib - EKG with a flutters - continue metoprolol Nicotine dependence - tobacco cessation discussed Full code Heparin Patient requiring continued admission due to acute metabolic encephalopathy, likely secondary to worsening renal clearance Quality Stroke Does the patient have a stroke diagnosis?: No VTE Prior VTE?: No VTE Risk Level:: Medical - moderate - high VTE Device Contraindication: Treatment Not Indicated VTE Drug Contraindication: N/A - Med Ordered
[2025-01-08 14:22] LABS: Adenovirus F 40/41 Not Detected (Not Detect.); Astrovirus Not Detected (Not Detect.); Campylobacter Not Detected (Not Detect.); Cryptosporidium Not Detected (Not Detect.); Cyclospora cayetanensis Not Detected (Not Detect.); E. coli EAEC Not Detected (Not Detect.); E. coli EPEC Not Detected (Not Detect.); E. coli ETEC Not Detected (Not Detect.); E. coli STEC Not Detected (Not Detect.); Entamoeba histolytica Not Detected (Not Detect.); Giardia lamblia Not Detected (Not Detect.); Norovirus GI/GII Not Detected (Not Detect.); Plesiomonas shigelloides Not Detected (Not Detect.); Rotavirus A Not Detected (Not Detect.); Salmonella Not Detected (Not Detect.); Sapovirus Not Detected (Not Detect.); Shigella sp./EIEC Not Detected (Not Detect.); Vibrio Not Detected (Not Detect.); Vibrio Cholerae Not Detected (Not Detect.); Yersinia enterocolitica Not Detected (Not Detect.)
--- NOTE | 2025-01-08 14:58 | PM.EVENT ---
Event Note Date of Service: 01/08/25 Event Note: Patient noted to have trigeminy rhythm for about 10 minutes on telemetry. Echo about 6 months ago with low normal EF. Electrolytes okay this morning. Discussed case with Dr. Santillan Repeat [facility] Echo Cardiology consult Time Spent With Patient Time: Total time managing care of this patient today ____ minutes.
[2025-01-08] MEDS: Nicotine 21 MG PATCH.TD24 TRANSDERMA (15:31)
[2025-01-08 15:47] LABS: Anion Gap 19 (12-20); Blood Urea Nitrogen 37 mg/dL (9-16); Calcium 8.1 mg/dL (8.4-10.2); Carbon Dioxide 24 mmol/L (22-29); Chloride 97 mmol/L (96-108); Creatinine Clr Calc Pharmacy 9.5; Estimated Glomerular Filt Rate 8; Glucose Random 91 mg/dL (60-115); Sodium 136 mmol/L (135-145)
[2025-01-08] MEDS: rOPINIRole HCL 2 MG TABLET PO (19:53)
[2025-01-08] MEDS: amLODIPine Besylate 5 MG TABLET PO (19:54)
[2025-01-09 03:51] VITALS: BP 132/67; PULSE 61; RESP 18; TEMP 36.7; O2SAT 97
[2025-01-09 07:03] LABS: Hematocrit 32.5 % (42.0-52.0); Hemoglobin 11.2 g/dl (14.0-18.0); Mean Corpuscular HGB Conc 34.5 g/dl (31.0-36.0); Mean Corpuscular Hemoglobin 32.3 pg (27.0-33.0); Mean Corpuscular Volume 93.7 fL (80.0-98.0); Mean Platelet Volume 9.5 fL (9.4-12.4); Platelet Count 152 X10*3/uL (160-400); Red Blood Count 3.47 X10*6/uL (4.60-5.80); Red Cell Distribution Width 12.7 % (11.0-16.0); White Blood Count 4.1 X10*3/uL (4.8-10.8)
[2025-01-09 07:32] LABS: Blood Urea Nitrogen 47 mg/dL (9-16); Calcium 8.4 mg/dL (8.4-10.2); Creatinine Clr Calc Pharmacy 7.9; Estimated Glomerular Filt Rate 7; Glucose Random 85 mg/dL (60-115)
[2025-01-09 07:41] LABS: Anion Gap 21 (12-20); Carbon Dioxide 24 mmol/L (22-29); Chloride 96 mmol/L (96-108); Potassium 5.1 mmol/L (3.3-5.1); Sodium 136 mmol/L (135-145)
[2025-01-09 08:00] VITALS: BP 141/65; PULSE 61; RESP 18; TEMP 36.3; O2SAT 100
[2025-01-09] MEDS: Cyanocobalamin (Vitamin B-12) 1,000 MCG TABLET 1000 MCG PO (08:15)
[2025-01-09] MEDS: clonazePAM 0.5 MG TABLET PO ×2 (08:15→20:48)
[2025-01-09] MEDS: Multivitamin TABLET 1 TAB PO (08:15)
[2025-01-09] MEDS: OXcarbazepine 300 MG TABLET PO (08:16)
[2025-01-09] MEDS: lamoTRIgine 100 MG TABLET PO (08:16)
[2025-01-09] MEDS: lisinopriL 20 MG TABLET PO (08:16)
[2025-01-09] MEDS: Ascorbic Acid 500 MG TABLET 1000 MG PO (08:16)
[2025-01-09] MEDS: Metoprolol Succinate ER 25 MG TAB.ER.24H PO (08:16)
[2025-01-09] MEDS: Nicotine 21 MG PATCH.TD24 TRANSDERMA (08:17)
[2025-01-09] MEDS: 0.9 % Sodium Chloride Flush 3 ML SYRINGE IVFLUSH ×3 (08:20→20:59)
--- NOTE | 2025-01-09 08:37 | P.PNNP_ITS ---
Subjective Subjective Date of Service: 01/09/25 Interval history: f/u acute encephalopathy Patient mentating better Physical Exam 2 Vital Signs: Vital Signs: Last Vital Signs Temp 97.4 F 01/09/25 08:00 Pulse 61 01/09/25 08:00 Resp 18 01/09/25 08:00 BP 141/65 H 01/09/25 08:00 Pulse Ox 100 01/09/25 08:00 O2 Del Method Room Air 01/09/25 08:00 BMI result Body Mass Index 21.5 cvs; S1S2 Rs; cta Abd; soft Objective Data Labs 01/09/25 06:31 01/09/25 06:31 Labs: Laboratory Results - last 24 hr 01/08/25 01/08/25 01/08/25 09:03 12:35 15:18 WBC 4.2 L RBC 3.56 L Hgb 11.6 L Hct 32.5 L MCV 91.3 MCH 32.6 MCHC 35.7 RDW 12.8 Plt Count 142 L MPV 9.2 L Immature Gran % (Auto) 0.2 Neut % (Auto) 59.1 Lymph % (Auto) 26.5 [place] % (Auto) 10.2 Eos % (Auto) 3.3 Baso % (Auto) 0.7 Lymph # (Auto) 1.1 L [place] # (Auto) 0.4 Eos # (Auto) 0.1 Baso # (Auto) 0.0 Abs Immat Gran (auto) 0.01 Absolute Neuts (auto) 2.5 Absolute Nucleated RBC 0.000 Nucleated RBC % (auto) 0.0 Sodium 137 136 Potassium 4.1 D 4.0 Chloride 95 L 97 Carbon Dioxide 27 24 Anion Gap 19 19 BUN 34 H 37 H Creatinine 6.50 H* 6.63 H* Estim Creat Clear Calc 9.7 9.5 Estimated GFR 8 8 Random Glucose 91 91 Calcium 8.4 8.1 L Total Bilirubin 0.5 AST 80 H ALT 39 Alkaline Phosphatase 69 Ammonia 30 Total Creatine Kinase Total Protein 6.6 Albumin 4.2 Stl C. cayetanensis PCR Not Detected Stool Rotavirus A PCR Not Detected Stl Adenov F 40/ PCR Not Detected Stool Astrovirus (PCR) Not Detected Stool Campylobacter PCR Not Detected Stool Cryptosporidium PCR Not Detected Stl Sh Tox Pr E STEC PCR Not Detected Stool E coli O157 PCR Not applicable Stl Enterotoxigenic E PCR Not Detected Stool EPEC (PCR) Not Detected Stool EAEC (PCR) Not Detected Stl E. histolytica PCR Not Detected Stool Giardia Lamblia PCR Not Detected Stl P. shigelloides PCR Not Detected Stool Salmonella PCR Not Detected Stool Sapovirus (PCR) Not Detected Stl Shigella/EIEC PCR Not Detected St Y.enterocolitica PCR Not Detected Stool Vibrio (PCR) Not Detected Stl Vibrio cholerae PCR Not Detected Stl Norovirus GI/GII PCR Not Detected C. difficile Tox B Gene NEGATIVE 01/09/25 06:31 WBC 4.1 L RBC 3.47 L Hgb 11.2 L Hct 32.5 L MCV 93.7 MCH 32.3 MCHC 34.5 RDW 12.7 Plt Count 152 L MPV 9.5 Immature Gran % (Auto) Neut % (Auto) Lymph % (Auto) [place] % (Auto) Eos % (Auto) Baso % (Auto) Lymph # (Auto) [place] # (Auto) Eos # (Auto) Baso # (Auto) Abs Immat Gran (auto) Absolute Neuts (auto) Absolute Nucleated RBC 0.000 Nucleated RBC % (auto) 0.0 Sodium 136 Potassium 5.1 D Chloride 96 Carbon Dioxide 24 Anion Gap 21 H BUN 47 H Creatinine 7.90 H* Estim Creat Clear Calc 7.9 Estimated GFR 7 Random Glucose 85 Calcium 8.4 Total Bilirubin AST ALT Alkaline Phosphatase Ammonia Total Creatine Kinase 3697 H Total Protein Albumin Stl C. cayetanensis PCR Stool Rotavirus A PCR Stl Adenov F 40/41 PCR Stool Astrovirus (PCR) Stool Campylobacter PCR Stool Cryptosporidium PCR Stl Sh Tox Pr E STEC PCR Stool E coli O157 PCR Stl Enterotoxigenic E PCR Stool EPEC (PCR) Stool EAEC (PCR) Stl E. histolytica PCR Stool Giardia Lamblia PCR Stl P. shigelloides PCR Stool Salmonella PCR Stool Sapovirus (PCR) Stl Shigella/EIEC PCR St Y.enterocolitica PCR Stool Vibrio (PCR) Stl Vibrio cholerae PCR Stl Norovirus GI/GII PCR C. difficile Tox B Gene Procedures Date of Service Date of Service: 01/09/25 Assessment & Plan Assessment and plan (1) ESRD (end stage renal disease) on dialysis: Status: Acute Plan Patient is a 74 year old male past medical history significant for end-stage renal disease hemodialysis MWF, atrial flutter, hypertension, mood disorder, chronic anemia, ATTR-CM, grade I COPD and RYAN on CPAP, presents for found down, weakness - unable to rule out a fall. Plan to admit for dialysis and monitoring due to hyperkalemia. ESRD: usu HD mwf; last HD Sat HyperK HTN- On metoprolol, [id number], lisionpril 40 REC: HD today low K bath; monitor CK levels daily Time Spent With Patient Time: Total time managing care of this patient today ____ minutes. Progress Note: Quality Stroke Does the patient have a stroke diagnosis?: No
--- NOTE | 2025-01-09 13:13 | MHC.CM.PN ---
CM met with pt. to discuss DCP. He said he wants to go to STR at [facility] because he goes to [facility] for HD there. He said he will not go to another STR, he will wait for a bed to open at [facility]. MM said bed will be available tomorrow. Provider aware.
--- NOTE | 2025-01-09 15:50 | P.PNIM_ITS ---
Subjective Subjective Date of Service: 01/09/25 Interval History: Follow-up acute metabolic encephalopathy Patient irritable No current complaints including chest pain, shortness of breath, nausea or vomiting Concerned about going home due to weakness Requesting to go to [facility] for short-term rehab Review of Systems Review of Systems: Yes all other systems are reviewed and are negative Physical Exam 2 Vital Signs: Vital Signs: Last Vital Signs Temp 97.4 F 01/09/25 08:00 Pulse 61 01/09/25 08:00 Resp 18 01/09/25 08:00 BP 141/65 H 01/09/25 08:00 Pulse Ox 100 01/09/25 08:00 O2 Del Method Room Air 01/09/25 08:00 BMI result Body Mass Index 21.5 General: AOx3, no acute distress, currently on dialysis. Very irritable Resp: Limited exam due to current dialysis, CTA bilaterally, no wheezing CVS: S1, S2, RRR GI: +BS, NT, no distention Skin: Warm, dry Neuro: Cranial nerves II-XII grossly intact bilaterally. Motor grossly intact bilaterally Extremities: No lower extremity edema Psych: Very irritable, yelling Objective Data Active Medications Acetaminophen (Acetaminophen 325 Mg Tablet) 975 mg PO Q6H PRN PRN Reason: Pain, Mild 1-3,fever,headache Albuterol Sulfate (Albuterol Sulfate 90 Mcg 8 Gm Inhaler) 2 puff INHALE Q6H PRN PRN Reason: Shortness Of Breath Or Wheezing Amlodipine Besylate (Amlodipine Besylate 5 Mg Tablet) 5 mg PO BEDTIME [facility]; Protocol Last Admin: 01/08/25 19:54 Dose: 5 mg Documented By: HAZEL Ascorbic Acid (Ascorbic Acid 500 Mg Tablet) 1,000 mg PO DAILY [facility] Last Admin: 01/09/25 08:16 Dose: 1,000 mg Documented By: MYRA Calcium Carbonate (Calcium Carbonate 750 Mg Tab.Chew) 750 mg PO Q4H PRN PRN Reason: Heartburn Clonazepam (Clonazepam 0.5 Mg Tablet) 0.5 mg PO BID [facility] Last Admin: 01/09/25 08:15 Dose: 0.5 mg Documented By: MYRA Cyanocobalamin (Cyanocobalamin (Vitamin B-12) 1,000 Mcg Tablet) 1,000 mcg PO DAILY [facility] Last Admin: 01/09/25 08:15 Dose: 1,000 mcg Documented By: MYRA Furosemide (Furosemide 40 Mg Tablet) 80 mg PO SuTuThSa@0900 [facility]; Protocol Last Admin: 01/08/25 07:59 Dose: 80 mg Documented By: DIANN Heparin Sodium (Porcine) (Heparin Sodium,Porcine 5,000 Unit/Ml Vial) 5,000 unit SUBCUT Q12H [facility] Last Admin: 01/09/25 08:20 Dose: Not Given Documented By: MYRA Non-Admin Reason: Patient Refused Lamotrigine (Lamotrigine 100 Mg Tablet) 100 mg PO DAILY [facility] Last Admin: 01/09/25 08:16 Dose: 100 mg Documented By: MYRA Lisinopril (Lisinopril 20 Mg Tablet) 20 mg PO DAILY [facility]; Protocol Last Admin: 01/09/25 08:16 Dose: 20 mg Documented By: MYRA Magnesium Hydroxide (Milk Of Magnesia 30 Ml Oral.Susp) 30 ml PO DAILY PRN PRN Reason: Constipation Melatonin (Melatonin 3 Mg Tablet) 6 mg PO BEDTIME PRN PRN Reason: Insomnia Last Admin: 01/07/25 20:13 Dose: 6 mg Documented By: YANI Metoprolol Succinate (Metoprolol Succinate Er 25 Mg Tab.Er.24h) 25 mg PO DAILY [facility]; Protocol Last Admin: 01/09/25 08:16 Dose: 25 mg Documented By: MYRA Multivitamins/Vitamin C (Multivitamin Tablet) 1 tab PO DAILY [facility] Last Admin: 01/09/25 08:15 Dose: 1 tab Documented By: MYRA Nicotine (Nicotine 21 Mg Patch.Td24) 21 mg TRANSDERMA DAILY [facility] Last Admin: 01/09/25 08:17 Dose: 21 mg Documented By: MYRA Oxcarbazepine (Oxcarbazepine 300 Mg Tablet) 600 mg PO BEDTIME [facility] Last Admin: 01/08/25 19:53 Dose: 600 mg Documented By: HAZEL Oxcarbazepine (Oxcarbazepine 300 Mg Tablet) 300 mg PO DAILY [facility] Last Admin: 01/09/25 08:16 Dose: 300 mg Documented By: MYRA Ropinirole HCl (Ropinirole Hcl 2 Mg Tablet) 2 mg PO BEDTIME [facility] Last Admin: 01/08/25 19:53 Dose: 2 mg Documented By: HAZEL Sodium Chloride (0.9 % Sodium Chloride Flush 3 Ml Syringe) 3 ml IVFLUSH QSHIFT [facility] Last Admin: 01/09/25 08:20 Dose: 3 ml Documented By: MYRA Sodium Polystyrene Sulfonate (Sodium Polystyrene Sulfon/Sorb 15 Gm/60 Ml Oral.Susp) 15 gm PO SuTuThSa@0900 [facility] Last Admin: 01/08/25 07:58 Dose: 15 gm Documented By: DIANN Labs 01/09/25 06:31 01/09/25 06:31 Labs: Laboratory Results - last 24 hr 01/09/25 06:31 MCV 93.7 MCH 32.3 MCHC 34.5 RDW 12.7 Plt Count 152 L MPV 9.5 Absolute Nucleated RBC 0.000 Nucleated RBC % (auto) 0.0 Anion Gap 21 H Estim Creat Clear Calc 7.9 Estimated GFR 7 Random Glucose 85 Calcium 8.4 Total Creatine Kinase 3697 H Assessment and Plan (1) Acute metabolic encephalopathy: Status: Acute (2) ESRD (end stage renal disease) on dialysis: Status: Acute (3) Rhabdomyolysis: Status: Acute (4) Recurrent falls: Status: Acute Plan 71-year-old male admitted s/p recurrent falls at home, worsening weakness, encephalopathy S/p fall, rhabdo, worsening weakness - no evidence of trauma - fall precautions - psych meds likely contributing - CPK 3580, 3707, now 3697 - follow CPK and BMP - per nephro: no IVF needed for CPK, continue to monitor - PT eval recommends STR. pt awaiting bed likely tomorrow Acute metabolic encephalopathy - improved - secondary to worsening renal clearance - nephrology following Trigeminy rhythm on telemetry - spoke with Cardiology who suggested this is chronic, no further evaluation needed - echo about 6 months ago with low normal EF - cancel echo per Cardiology - continue to monitor on telemetry Diarrhea - improved - GI panel and cdiff negative ESRD on HD MWF - has not missed session per pt - hx of noncompliance - nephrology consulted HTN - metoprolol and lisinopril Acute on chronic anemia - at baseline Mood disorder - continue Lamictal, Trileptal and clonazepam History AFib - EKG with a flutters - continue metoprolol Nicotine dependence - tobacco cessation discussed Full code Heparin Patient requiring continued admission as patient is awaiting bed at short-term rehab Quality Stroke Does the patient have a stroke diagnosis?: No VTE Prior VTE?: No VTE Risk Level:: Medical - moderate - high VTE Device Contraindication: Treatment Not Indicated VTE Drug Contraindication: N/A - Med Ordered
[2025-01-09 16:00] VITALS: BP 149/66; PULSE 65; RESP 18; TEMP 36.6; O2SAT 97
--- NOTE | 2025-01-09 16:30 | PM.DS ---
DS: Providers Provider Date of Service: 01/10/25 Date of admission: 01/06/25 15:54 Date of discharge: 01/10/25 Primary care physician: Gerald Davis MD Consults: 01/06/25 16:42 Consult to Nephrology Routine Consulting Provider: [facility] Reason for consultation: Missed Last HD session (Tuesday) Has provider been notified: No DS: Diagnosis Discharge Diagnosis (1) Acute metabolic encephalopathy: Status: Acute (2) ESRD (end stage renal disease) on dialysis: Status: Acute (3) Rhabdomyolysis: Status: Acute (4) Recurrent falls: Status: Acute DS: Summary Hospital Course Hospital Course: H&P on admission: Igor May is a 71 years old man with past medical history significant for ESRD on hemodialysis (MWF), atrial flutter and essential hypertension was brought to the emergency department via EMS after he was found on the ground today by his ex-. HPI was mostly provided by patient's ex- with whom the patient's maintains a friendly relationship. According to ex- they have a habit of taking every morning over the phone. 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 Upon opening the door of his house, she found him on the ground facing up. He was alert but I was unable to stand up. The patient is a poor historian but he denied falling down. He said that his legs were too weak and was unable to reach the chair so he decide to lay on the ground. It is unknown for how long he was on the ground. He has some memory issues but has not been diagnosed with dementia. Patient complain of mild headache but denies symptoms such as palpitations, dizziness, chest pain, shortness on breath, abdominal pain, nausea, vomiting or diarrhea. His last bowel movement was 15 minutes ago and was normal. Patient continue to make urine despite having renal disease. He has an ongoing tobacco smoker. Denied alcohol abuse or illicit drug use. Last Tuesday, before communications assistant to his hemodialysis, the patient's sustaining a fall. In the ED, he was found to have stable vital signs. Last BP is 145/56. Blood workup is basically unremarkable. Hemoglobin is 11.8 which is at baseline. There is no leukocytosis and platelets are normal. BUN is 62 and creatinine 9.20. Potassium is 5.0, chloride 95, CO2 21, and annual 25. Random glucose is 72. Ammonia is 25. Head CT scan showed no acute intracranial abnormality. C-spine CT scan showed no dislocation or fracture. It did showed advanced multilevel cervical spondylosis and degenerative changes. Chart review: Echo May 2024: EF 50-50% with impaired relaxation filling patterns. Severely dilated left atrium, mild mitral regurgitation, mildly elevated right ventricular systolic pressure, mildly dilated ascending aorta at 4.1 cm and no gross pericardial effusion. ED tx: Acetaminophen 975 mg p.o. Hospital course: Patient admitted for recurrent falls at home due to worsening weakness and metabolic encephalopathy from worsening renal glands. Workup for his findings negative for any acute fractures, head CT negative. Cardiac enzymes were elevated at 4, EKG nonischemic. CPK mildly elevated upon admission however increased up to 3707 and has not changed significantly. Nephrology was consulted who did not suggest any IV fluids or further management. Mentation improved after dialysis, patient no longer encephalopathic. His hospital stay was complicated by a day with severe diarrhea, stool studies were negative, diarrhea improved. He continues to receive dialysis Tuesday. The patient was also noted to have a trigeminal rhythm for about 10 minutes on telemetry. He had an echocardiogram about 6 months ago with low normal EF. Electrolytes were okay. Spoke with Cardiology who states this is chronic for the patient and no further workup needed at this time. The patient was evaluated by Physical therapy who recommended short-term rehab due to recent falls and weakness. Status at Discharge Functional status at discharge: uses cane/walker Overall status at discharge: patient is progressing back to baseline Time Attestation Discharge Coordination Time (in mins): 45 Quality: Safe Use of Opioids Does Pt have an Active Cancer Diagnosis on the Problem List?: No Quality: Stroke Does the patient have a stroke diagnosis?: No Physical Exam Vital Signs: Vital Signs: Last Vital Signs Temp 97.4 F 01/09/25 08:00 Pulse 61 01/09/25 08:00 Resp 18 01/09/25 08:00 BP 141/65 H 01/09/25 08:00 Pulse Ox 100 01/09/25 08:00 O2 Del Method Room Air 01/09/25 08:00 BMI result Body Mass Index 21.5 General: AOx3, no acute distress Resp: CTA bilaterally CVS: S1, S2, RRR GI: +BS, NT, no distention Skin: Warm, dry Neuro: Cranial nerves II-XII grossly intact bilaterally. Motor grossly intact bilaterally Extremities: No LE edema Psych: Irritable DS: Data Data Completed and Pending Completed studies during hospitalization [Text1]: Procedures Assistance with Respiratory Ventilation, Less than 24 Consecutive Hours, Continuous Positive Airway Pressure (07/31/23) Performance of Urinary Filtration, Intermittent, Less than 6 Hours Per Day (06/18/24) Labs on day of discharge: Laboratory Results - last 24 hr 01/09/25 06:31 WBC 4.1 L RBC 3.47 L Hgb 11.2 L Hct 32.5 L MCV 93.7 MCH 32.3 MCHC 34.5 RDW 12.7 Plt Count 152 L MPV 9.5 Absolute Nucleated RBC 0.000 Nucleated RBC % (auto) 0.0 Sodium 136 Potassium 5.1 D Chloride 96 Carbon Dioxide 24 Anion Gap 21 H BUN 47 H Creatinine 7.90 H* Estim Creat Clear Calc 7.9 Estimated GFR 7 Random Glucose 85 Calcium 8.4 Total Creatine Kinase 3697 H Discharge Plan Discharge Anticipated Discharge Date/Time: 01/10/25 16:35 Patient Disposition: Xfer SNF Discharge Diagnosis: Metabolic encephalopathy secondary to worsening renal clearance with weakness and recent falls Referrals: Gerald Davis MD [Primary Care Provider, Internal Medicine] - 1 Week Discharge Medications: New amlodipine 5 mg Tablet 5 mg PO BEDTIME Qty: 90 0RF Protocol: Hold for SBP< HOLD for SBP < : 90 Continued trazodone 50 mg tablet 50 mg PO BEDTIME sodium polystyrene sulfonate Powder 15 g PO SUTUTHSA Rx Instructions: On NON -Dialysis days clonazepam 1 mg tablet 0.5 mg PO BID@0900,1200 cyanocobalamin (vitamin B-12) 1,000 mcg Tablet 1,000 mcg PO DAILY ascorbic acid (vitamin C) 500 mg Tablet 1,000 mg PO DAILY furosemide 80 mg tablet 80 mg PO SUTUTHSA oxcarbazepine 600 mg tablet 300 mg PO QAM prochlorperazine maleate 5 mg tablet 5 mg PO BID albuterol sulfate [Ventolin HFA] 90 mcg/actuation HFA aerosol inhaler 2 puff INHALATION Q6H PRN (Reason: Shortness Of Breath Or Wheezing) vitamin B complex Tablet 1 tab PO DAILY meclizine 25 mg tablet 25 mg PO BID lamotrigine [Lamictal] 100 mg Tablet 100 mg PO DAILY clonazepam 1 mg tablet 1 mg PO BEDTIME ropinirole 2 mg tablet 2 mg PO BEDTIME oxcarbazepine 600 mg tablet 600 mg PO BEDTIME lisinopril 20 mg tablet 20 mg PO DAILY Qty: 90 3RF metoprolol succinate 25 mg tablet extended release 24 hr 25 mg PO DAILY Qty: 90 3RF Discharge Orders: Discharge Order (Routine); Ordered 01/10/25 Ordered By: Dedra Bustos Diet: Low salt diet Activity on Discharge: Use cane or walker Stand Alone Forms: Patient Portal Discharge page Print Language: Irish Care Plan Goals: ESRD - continue dialysis elevated CPK - continue PO fluids recent falls/weakness - d/c to STR for physical conditioning Health Concerns: ESRD, elevated CPK, recent falls/weakness Plan of Treatment: continue dialysis MWF continue oral fluids d/c to STR for physical conditioning Assessment: see above
[2025-01-09 20:00] VITALS: BP 153/67; PULSE 74; RESP 16; TEMP 36.2; O2SAT 98
[2025-01-09] MEDS: amLODIPine Besylate 5 MG TABLET PO (20:47)
[2025-01-09] MEDS: OXcarbazepine 300 MG TABLET 600 MG PO (20:51)
[2025-01-09] MEDS: rOPINIRole HCL 2 MG TABLET PO (20:51)
[2025-01-09] MEDS: Acetaminophen 325 MG TABLET 975 MG PO (20:57)
[2025-01-10] VITALS: BP 137/63; PULSE 68; RESP 16; TEMP 36.9; O2SAT 99
[2025-01-10 03:38] VITALS: BP 120/58; PULSE 63; RESP 18; TEMP 36.7; O2SAT 99
[2025-01-10 07:08] LABS: Hematocrit 32.5 % (42.0-52.0); Hemoglobin 11.4 g/dl (14.0-18.0); Mean Corpuscular HGB Conc 35.1 g/dl (31.0-36.0); Mean Corpuscular Hemoglobin 32.2 pg (27.0-33.0); Mean Corpuscular Volume 91.8 fL (80.0-98.0); Mean Platelet Volume 9.8 fL (9.4-12.4); Platelet Count 166 X10*3/uL (160-400); Red Blood Count 3.54 X10*6/uL (4.60-5.80); Red Cell Distribution Width 12.5 % (11.0-16.0); White Blood Count 4.3 X10*3/uL (4.8-10.8)
[2025-01-10 07:22] VITALS: BP 133/62; PULSE 76; RESP 18; TEMP 36.7; O2SAT 98
[2025-01-10 07:25] LABS: Anion Gap 18 (12-20); Blood Urea Nitrogen 35 mg/dL (9-16); Calcium 8.2 mg/dL (8.4-10.2); Carbon Dioxide 29 mmol/L (22-29); Chloride 95 mmol/L (96-108); Creatinine Clr Calc Pharmacy 11.7; Estimated Glomerular Filt Rate 10; Glucose Random 92 mg/dL (60-115); Potassium 4.2 mmol/L (3.3-5.1); Sodium 138 mmol/L (135-145)
[2025-01-10] MEDS: Ascorbic Acid 500 MG TABLET 1000 MG PO (08:17)
[2025-01-10] MEDS: Cyanocobalamin (Vitamin B-12) 1,000 MCG TABLET 1000 MCG PO (08:17)
[2025-01-10] MEDS: Furosemide 40 MG TABLET 80 MG PO (08:17)
[2025-01-10] MEDS: lisinopriL 20 MG TABLET PO (08:17)
[2025-01-10] MEDS: lamoTRIgine 100 MG TABLET PO (08:17)
[2025-01-10] MEDS: OXcarbazepine 300 MG TABLET PO (08:17)
[2025-01-10] MEDS: Sodium Polystyrene Sulfon/Sorb 15 GM/60 ML ORAL.SUSP PO (08:17)
[2025-01-10] MEDS: Metoprolol Succinate ER 25 MG TAB.ER.24H PO (08:17)
[2025-01-10] MEDS: clonazePAM 0.5 MG TABLET PO (08:18)
[2025-01-10] MEDS: 0.9 % Sodium Chloride Flush 3 ML SYRINGE IVFLUSH (08:18)
[2025-01-10] MEDS: Nicotine 21 MG PATCH.TD24 TRANSDERMA (08:18)
[2025-01-10] MEDS: Multivitamin TABLET 1 TAB PO (08:18)
[2025-01-10 11:01] VITALS: BP 114/56; PULSE 55; RESP 18; TEMP 36.6; O2SAT 97
--- NOTE | 2025-01-10 11:47 | MHC.CM.PN ---
Second IMM given to pt. he is going to [facility] via B[facility].
--- NOTE | 2025-01-10 12:20 | W.MHC.F2F ---
Service Date Service Date: 01/10/25 Encounter Date of encounter: 01/10/25 Reasons for Services Signs and symptoms assessed: weakness, recurrent falls, needs STR for strengthening Reason for physical therapy: home safety and mobility Homebound: Leaving the home is medically contraindicated at this time without the asist of a device and/or another person due th the listed conditions above and below. Reason homebound: unsteady gait / fall risk Certification: Based on the above findings, I certify that this patient is confined to the home and needs intermittent [facility] care, physical therapy and/or speech therapy, or continues to need occupational therapy. The patient is under my care, and I have initiated the establishment of the plan of care. The patient will be followed by a physician who will periodically review the plan of care. Time Spent With Patient Time: Total time managing care of this patient today ____ minutes.
== END 2025-01-10 12:56 | disposition skilled nursing facility (03) | DRG 682 ==
LOC: HO.ED 15:42 → HO.EDOVER 16:42 → HO.IMC 17:19
PROVIDERS: Admitting Provider Internal Medicine; Emergency Provider Emergency Medicine; PCP Family Medicine; Visit Provider Physician Assistant
DX: I12.0 Hypertensive chronic kidney disease with stage 5 chronic kidney disease or end stage renal disease (principal); G93.41 Metabolic encephalopathy; N18.6 End stage renal disease; E87.20 Acidosis, unspecified; E85.4 Organ-limited amyloidosis; I43 Cardiomyopathy in diseases classified elsewhere; I48.92 Unspecified atrial flutter; M62.82 Rhabdomyolysis; J44.9 Chronic obstructive pulmonary disease, unspecified; G47.33 Obstructive sleep apnea (adult) (pediatric); F39 Unspecified mood [affective] disorder; E87.5 Hyperkalemia; F17.210 Nicotine dependence, cigarettes, uncomplicated; R00.8 Other abnormalities of heart beat; Z71.6 Tobacco abuse counseling; R19.7 Diarrhea, unspecified; R29.6 Repeated falls; Z99.2 Dependence on renal dialysis; D63.1 Anemia in chronic kidney disease; Z91.158 Patient's noncompliance with renal dialysis for other reason; Z79.899 Other long term (current) drug therapy
CPT/HCPCS: 36415; 70450; 71045; 72125; 80048; 80053; 81001; 82140; 82306; 82550; 82947; 83735; 84100; 84484; 85025; 85027; 85379; 87493; 87507; 90999; 93005; 97116; 97162; 99285; J1644; J7120; Q9957

== ENCOUNTER → 2025-01-06 11:51 | Outpatient (BNV) | payer MEDICARE, OTHER, SELFPAY | PROVIDERS: Emergency Provider Emergency Medicine; PCP Family Medicine; Visit Provider Radiology Diagnostic Radiology | DX: M43.12 Spondylolisthesis, cervical region (principal); G31.9 Degenerative disease of nervous system, unspecified; J98.09 Other diseases of bronchus, not elsewhere classified | CPT/HCPCS: 70450; 71045; 72125 ==

== ENCOUNTER → 2025-01-06 12:44 | Outpatient (BNV) | payer MEDICARE, OTHER, SELFPAY | PROVIDERS: Admitting Provider Internal Medicine; Emergency Provider Emergency Medicine; PCP Family Medicine; Visit Provider Internal Medicine | DX: R94.31 Abnormal electrocardiogram [ECG] [EKG] (principal); R53.1 Weakness | CPT/HCPCS: 93010 ==

== ENCOUNTER → 2025-01-06 15:54 | Outpatient (BNV) | payer MEDICARE, OTHER, SELFPAY | PROVIDERS: Admitting Provider Internal Medicine; Emergency Provider Emergency Medicine; PCP Family Medicine; Visit Provider Internal Medicine | DX: G93.41 Metabolic encephalopathy (principal); N18.6 End stage renal disease; Z99.2 Dependence on renal dialysis; M62.82 Rhabdomyolysis; R29.6 Repeated falls | CPT/HCPCS: 99223; 99233; 99239; 99499; G0180 ==

== ENCOUNTER 2025-02-05 14:01 | Observation (INO) | payer MEDICARE, OTHER, SELFPAY ==
--- NOTE | ~2025-02-05 | XR_ITS ---
EXAMINATION: XR CHEST CLINICAL INFORMATION: History of PNA COMPARISON: January 06, 2025 TECHNIQUE: 2 views of the chest were obtained. FINDINGS: Chronic septal lines are seen in the lateral left lower lung zone. Lungs are clear otherwise. Cardiac size is within normal limits. There is enlargement of the main pulmonary artery. XR/XR chest 2V IMPRESSION: No acute disease. Pulmonary artery enlargement suggests pulmonary arterial hypertension. Electronically signed by: Jim Rodriguez MD 02/06/2025 06:12 PM EDT
[2025-02-05 14:22] VITALS: BP 130/54; PULSE 55; RESP 16; TEMP 36.8; O2SAT 100
[2025-02-05 14:23] VITALS: BMI 23.8
[2025-02-05 14:42] VITALS: BP 130/54; BP 140/60; PULSE 55; PULSE 56; RESP 18; TEMP 36.8; O2SAT 98; O2SAT 99; BMI 23.7
[2025-02-05 15:03] LABS: MANUAL DIFF FLAG NO
--- NOTE | 2025-02-05 15:09 | PC.NURSE ---
Addendum entered by Geena Guzman RN 02/05/25 15:10: Patient recently admitted for recurrent falls at home due to worsening weakness and metabolic encephalopathy from worsening renal glands. Workup for his findings negative for any acute fractures, head CT negative. Cardiac enzymes were elevated at 4, EKG nonischemic. CPK mildly elevated upon admission however increased up to 3707 and has not changed significantly. Nephrology was consulted who did not suggest any IV fluids or further management. Mentation improved after dialysis, patient no longer encephalopathic. Patient was discharged to [facility] and discharged this past Tuesday. Today had another trip and fall and was found of the floor by his visiting nurse. Difficulty getting off the floor secondary to weakness. Alert and oriented. Flat affect noted. Lungs coarse with congested cough. Patient states recently treated for pneumonia. Abdomen soft, non-tender with positive bowel sounds. LUDMILA AVF noted with positive bruit and thrill. Last dialysis treatment was yesterday. Positive pedal pulses with no edema. Original Note: Medical History CRF (chronic renal failure) ESRD (end stage renal disease) on dialysis Anemia ESRD (end stage renal disease) CKD (chronic kidney disease) Hypoxia Atrial flutter Nicotine dependence, cigarettes, uncomplicated AV fistula Essential hypertension Mood disorder Effusion, pericardium Pleural effusion, left Chronic kidney 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
[2025-02-05 15:28] LABS: Hematocrit 26.7 % (42.0-52.0); Hemoglobin 9.3 g/dl (14.0-18.0); Imm Gran Abs Auto 0.02 X10*3/uL (0.00-0.03); Imm Gran Pct Auto 0.4 % (0.0-0.4); Lymphocytes Absolute Auto 1.2 X10*3/uL (1.2-4.9); Mean Corpuscular HGB Conc 34.8 g/dl (31.0-36.0); Mean Corpuscular Hemoglobin 32.7 pg (27.0-33.0); Mean Corpuscular Volume 94.0 fL (80.0-98.0); NRBC Abs Auto 0.000 X10*3/uL (0.0-0.012); NRBC Pct Auto 0.0 /100WBC (0.0-0.2); Platelet Count 208 X10*3/uL (160-400); Red Blood Count 2.84 X10*6/uL (4.60-5.80); White Blood Count 5.1 X10*3/uL (4.8-10.8)
[2025-02-05 15:30] LABS: Alanine Aminotransferase 12 U/L (0-40); Albumin Level 3.7 g/dL (3.5-5.0); Alkaline Phosphatase 68 U/L (39-117); Anion Gap 15 (12-20); Aspartate Amino Transferase 22 U/L (5-37); Blood Urea Nitrogen 40 mg/dL (9-16); Calcium 8.4 mg/dL (8.4-10.2); Carbon Dioxide 31 mmol/L (22-29); Chloride 96 mmol/L (96-108); Creatinine Clr Calc Pharmacy 12.2; Estimated Glomerular Filt Rate 10; Magnesium 2.2 mg/dL (1.6-2.6); Potassium 4.1 mmol/L (3.3-5.1); Sodium 138 mmol/L (135-145); Total Protein 5.6 g/dL (6.5-8.0)
[2025-02-05 15:31] LABS: Troponin-I High Sensitivity 28.5 ng/L (<3.5-35.0)
--- OUTSIDE RECORDS SUMMARY | 2025-02-05 16:37 | XMS_ITS | Clinical Summary ---
Author Organization 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 Name Role Phone Gerald Davis MD Primary Care Provider [phone] Allergies Active Allergy Reactions Criticality Noted Date Comments Bupropion Other (see comments) 01/21/2021 Ibuprofen Other (see comments) 01/21/2021 Nsaids Other (see comments) 01/22/2021 Statins Other (see comments) 01/22/2021 Bupropion Hcl Other (see comments) 01/21/2021 Simvastatin Other (see comments) 01/21/2021 Medications traZODone (DESYREL) 50 MG tablet Comments: Filled Date: May 12 2020 1:19PM Patient Notes: TAKE 1 TABLET BY MOUTH EVERY 12 HOURS NEEDED Duration: 30 0 Active OXcarbazepine (TRILEPTAL) 600 MG tablet Take 1 tablet by mouth 2 (two) times a day 7 Active clonazePAM (KlonoPIN) 1 MG tablet Take 1 tablet by mouth 3 (three) times a day 8 Active lisinopril 5 MG tablet TAKE 1 TABLET BY MOUTH DAILY DIRECTED 90 tablet 1 2 Active lisinopril 20 MG tablet Take 1 tablet (20 mg total) by mouth 1 (one) time each day 90 tablet 1 4 Active furosemide (LASIX) 80 MG tablet TAKE 1 TABLET BY MOUTH 1 TIME EACH DAY. 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 01/21/2021 Hyperkalemia 01/21/2021 Hypercholesterolemia 01/21/2021 End stage renal disease 01/21/2021 Edema of lower extremity 01/21/2021 Dependence on renal dialysis 01/21/2021 Blood in urine 01/21/2021 Hyponatremia 01/21/2021 Polycystic kidney disease, adult type 01/21/2021 Stage 5 chronic kidney disease 01/21/2021 Hyperparathyroidism due to renal insufficiency 0 12/06/2018 Essential hypertension 12/06/2018 Active immunization 12/06/2018 Acquired renal cystic disease 12/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 [address] [place] [phone] Justin Sweet MD End stage renal disease; Dependence on renal dialysis 01/21/2025 Treatment [facility] [address] [place] [phone] Justin Sweet MD End stage renal disease; Dependence on renal dialysis 01/16/2025 TCM in Dialysis Clinic [facility] [address] [phone] Justin Sweet MD 01/16/2025 Treatment [facility] [address] [phone] Justin Sweet MD End stage renal disease; Dependence on renal dialysis 01/14/2025 Treatment [facility] [address] [phone] Justin Sweet MD End stage renal disease; Dependence on renal dialysis 12/31/2024 Treatment [facility] [address] [phone] Justin Sweet MD End stage renal disease; Dependence on renal dialysis 12/24/2024 Treatment [facility] [address] [phone] Justin Sweet MD End stage renal disease; Dependence on renal dialysis 12/19/2024 Orders Only [facility] [address] [phone] Justin Sweet MD 12/17/2024 Treatment [facility] [address] [phone] Justin Sweet MD End stage renal disease; Dependence on renal dialysis 12/14/2024 Treatment [facility] [address] [phone] Justin Sweet MD End stage renal disease; Dependence on renal dialysis 12/12/2024 Treatment [facility] [address] [phone] Justin Sweet MD End stage renal disease; Dependence on renal dialysis 12/03/2024 Treatment [facility] [address] [phone] Justin Sweet MD End stage renal disease; Dependence on renal dialysis 11/21/2024 Treatment [facility] [address] [phone] Justin Sweet MD End stage renal disease; Dependence on renal dialysis 11/12/2024 Treatment [facility] [address] [phone] Justin Sweet MD End stage renal disease; Dependence on renal dialysis from Last 3 Months Immunizations Immunization Administration Dates Next Due Hepatitis B 10/27/2016,05/26/2016,04/28/2016 Influenza Split High Dose Pr eservative Free IM 05/12/2017 Pneumococcal Conjugate 13-Valent 09/26/2015 Pneumococcal Polysaccharide 09/25/2014 Td 07/18/1999 Tdap 12/24/2010 Family History Medical History Relation Comments Cancer Father prostate/prostat e grandmother breast grandfather throat Hypertension Father Dementia Mother Cancer Sibling sister breast Relation Status Comments Father Mother Sibling Social History Tobacco Use Types Packs/Day Years Used Date Smoking Tobacco: Former Cigarettes Q uit: 11/15/2016 Comments:Smoking History Inf o:Every day Alcohol Use Standard Drinks/Week Comments No 0 (1 standard drink = 0.6 oz pur e alcohol) Sex and Gender Information Value Date Recorded Sex Assigned at Not on file Legal Sex Male 5:13 PM EST Gender Identity Not on file Sexual Orientation Not on file Last Filed Vital Signs Vital Sign Reading Time Taken Comments Blood Pressure 141/62 01/22/2021 2:27 PM EDT Pulse 61 01/22/2021 2:27 PM EDT Temperature - - Respiratory Rate 16 03/14/2018 12:00 PM EDT Oxygen Saturation 97% 01/22/2021 2:27 PM EDT Inhaled Oxygen Concentration - - Weight 69.9 kg (154 lb) 01/22/2021 2:27 PM EDT Height 180.3 cm (5' 11 ) 08/14/2020 12:00 PM EST Body Mass Index 21.48 08/14/2020 12:00 PM EST Plan of Treatment Health Maintenance Due Date Last Done Comments Hepatitis B Vaccine (1 of 5 - Risk Dialysis 4-dose series) 1969 10/27/2016, 05/26/2016, 04/28/2016 Colorectal Cancer Screening: Annual FOBT 1998 Colorectal Cancer Screening: Colonoscopy 1998 Colorectal Cancer Screening: Sigmoidoscopy 1998 Influenza Vaccine (#1) 2025 05/07/2021, 2016 Pneumococcal Vaccine: 50+ Years Completed 6, 09/25/2014 Pneumococcal Vaccine: Peds ( 0 to 5 Years) and At-Risk Patients (6 to 49 Years) Discontinued 09/26/2015, 09/25/2014 Procedures Procedure Name Priority Date/Time Associated Diagnosis Comments HEMOGLOBIN Routine 02/01/2025 3:00 AM EDT LIH () Routine 01/30/2025 3:00 AM EDT CALCIUM, ADJUSTED W ALBUMIN Routine 01/30/2025 3:00 AM EDT HEMOGLOBIN Routine 01/30/2025 3:00 AM EDT CALCIUM, ADJUSTED W ALBUMIN Routine 01/23/2025 3:00 AM EDT LIH () Routine 01/23/2025 3:00 AM EDT KT/V NATURAL LOG, URR (HC) Routine 01/23/2025 3:00 AM EDT HEPATITIS B SURFACE ANTIBODY QUANT Routine 01/16/2025 3:00 AM EDT VITAMIN D 25 HYDROXY Routine 01/16/2025 3:00 AM EDT FERRITIN Routine 01/16/2025 3:00 AM EDT TRANSFERRIN SATURATION Routine 3:00 AM EDT PROTEIN, TOTAL, SERUM Routine 01/16/2025 3:00 AM EDT LIH (HC) Routine 01/16/2025 3:00 AM EDT ELECTROLYTE PANEL Routine 01/16/2025 3:0 0 AM EDT MAGNESIUM Routine 01/16/2025 3:00 AM EDT LIPID PANEL Routine 01/16/2025 3:00 AM EDT LACTATE DEHYDROGENASE Routine 01/16/2025 3:00 AM EDT CREATININE, SERUM Routine 01/16/2025 3:0 0 AM EDT GLUCOSE, RANDOM Routine 01/16/2025 3:00 AM EDT BILIRUBIN, TOTAL Routine 01/16/2025 3:00 AM EDT ALT Routine 01/16/2025 3:00 AM EDT ALKALINE PHOSPHATASE Routine 01/16/2025 3:00 AM EDT AST Routine 01/16/2025 3:00 AM EDT BUN/CREATININE RATIO Routine 01/16/2025 3:00 AM EDT CALCIUM PHOSPHORUS PRODUCT, ADJUSTED (HC) Routine 01/16/2025 3:00 AM EDT PTH, INTACT Routine 01/16/2025 3:00 AM EDT CBC AND DIFFERENTIAL Routine 01/16/2025 3:00 AM EDT KT/V NATURAL LOG, URR (HC) Routine 01/16/2025 3:00 AM EDT PHOSPHATE ( PHOSPHORUS) Routine 01/02/2025 3:00 AM EDT LIH (HC) Routine 01/02/2025 3:00 AM EDT HEMOGLOBIN Routine 01/02/2025 3:00 AM EDT PHOSPHATE ( PHOSPHORUS) Routine 12/26/2024 3:00 AM EDT LIH (HC) Routine 12/26/2024 3:00 AM EDT TRANSFERRIN SATURATION Routine 3:00 AM EDT PROTEIN, TOTAL, SERUM Routine 12/19/2024 3:00 AM EDT ELECTROLYTE PANEL Routine 12/19/2024 3:0 0 AM EDT MAGNESIUM Routine 12/19/2024 3:00 AM EDT LIH (HC) Routine 12/19/2024 3:00 AM EDT LACTATE DEHYDROGENASE Routine 12/19/2024 3:00 AM EDT GLUCOSE, RANDOM Routine 12/19/2024 3:00 AM EDT CREATININE, SERUM Routine 12/19/2024 3:0 0 AM EDT BUN/CREATININE RATIO Routine 12/19/2024 3:00 AM EDT BILIRUBIN, TOTAL Routine 12/19/2024 3:00 AM EDT ALT Routine 12/19/2024 3:00 AM EDT AST Routine 12/19/2024 3:00 AM EDT ALKALINE PHOSPHATASE Routine 12/19/2024 3:00 AM EDT CALCIUM PHOSPHORUS PRODUCT, ADJUSTED (HC) Routine 12/19/2024 3:00 AM EDT FERRITIN Routine 12/19/2024 3:00 AM EDT CBC AND DIFFERENTIAL Routine 12/19/2024 3:00 AM EDT KT/V NATURAL LOG, URR (HC) Routine 12/19/2024 3:00 AM EDT HEMOGLOBIN Routine 12/10/2024 3:00 AM EDT HEMOGLOBIN Routine 12/05/2024 3:00 AM EDT FERRITIN Routine 11/28/2024 3:00 AM EDT TRANSFERRIN SATURATION Routine 3:00 AM EDT PROTEIN, TOTAL, SERUM Routine 11/21/2024 3:00 AM EDT MAGNESIUM Routine 11/21/2024 3:00 AM EDT LIH (HC) Routine 11/21/2024 3:00 AM EDT ELECTROLYTE PANEL Routine 11/21/2024 3:0 0 AM EDT LACTATE DEHYDROGENASE Routine 11/21/2024 3:00 AM EDT BUN/CREATININE RATIO Routine 11/21/2024 3:00 AM EDT CREATININE, SERUM Routine 11/21/2024 3:0 0 AM EDT GLUCOSE, RANDOM Routine 11/21/2024 3:00 AM EDT ALKALINE PHOSPHATASE Routine 11/21/2024 3:00 AM EDT ALT Routine 11/21/2024 3:00 AM EDT AST Routine 11/21/2024 3:00 AM EDT CALCIUM PHOSPHORUS PRODUCT, ADJUSTED (HC) Routine 11/21/2024 3:00 AM EDT BILIRUBIN, TOTAL Routine 11/21/2024 3:00 AM EDT KT/V NATURAL LOG, URR (HC) Routine 11/21/2024 3:00 AM EDT CBC AND DIFFERENTIAL Routine 11/21/2024 3:00 AM EDT PHOSPHATE ( PHOSPHORUS) Routine 11/07/2024 3:00 AM EDT LIH (HC) Routine 11/07/2024 3:00 AM EDT from Last 3 Months Results * (ABNORMAL) Hemoglobin (02/01/2025 3:00 AM EDT) Only the most recent of5 resultswithin the time period is included. Pathologist [facility] Hgb 9.5(L) 13.7 - 17.5 g/dL [facility] Hemoglobin x 3 28.5(L) 41.1 - 52.5 g/dL [facility] 02/01/2025 3:00 AM EDT 02/02/2025 1:47 PM EDT us Justin Sweet MD LAB BLOOD ORDERABLES Final Re sult [facility] [address] [place] [address] * LIH (01/30/2025 3:00 AM EDT) Only the most recent of8 resultswithin the time period is included. Pathologist [facility] Lipemia Normal Normal [facility] Icterus Normal Normal [facility] Hemolysis Normal Normal [facility] 01/30/2025 3:00 AM EDT 01/31/2025 3:43 PM EDT us Justin Sweet MD LAB [id number] SOLICITED RESULTS Final Result [facility] [address] [place] [address] * (ABNORMAL) Calcium, Adjusted w Albumin (01/30/2025 3:00 AM EDT) Only the most recent of2 resultswithin the time period is included. Calcium 8.4(L) 8.6 - 10.3 mg/dL [facility] Albumin 4.0 3.6 - 5.4 g/dL [facility] Calcium, Adjusted Total 8.4(L) 8.6 - 10.3 mg/dL [facility] 01/30/2025 3:00 AM EDT 01/31/2025 3:43 PM EDT Justin Sweet MD LAB BLOOD ORDERABLES Final Re sult Performing Organization Address City/[facility]/ZIP Co de Phone Number [facility] [address] [place] [address] * (ABNORMAL) Kt/V Natural Log, URR (01/23/2025 3:00 AM EDT) Only the most recent of4 resultswithin the time period is included. Treatment Time 215 min [facility] Pre-Weight, lb 69.0 kg [facility] Post-Weight, lb 67.4 kg [facility] BUN 35(H) 7 - 25 mg/dL [facility] BUN Post Dialysis 10 7 - 25 mg/dL [facility] UREA REDUCTION RATIO (%) 71 >=65 % [facility] Kt/V Natural Log 1.43 >=1.2 [facility] Ultrafiltration Rate 7 <=13 mL/kg/hr [facility] Comment: Recommend achieving Ultrafiltration Rate (UFR) <=10 mL/kg/hr References: Lupe FLOOD et al. Kidney Int. 2010; 79(2):250-257 01/23/2025 3:00 AM EDT 01/24/2025 3:33 PM EDT Justin Sweet MD LAB HISTORICAL-CONVE RSIONS-UNSOLICITED RESULTS Edited Result - Final Performing Organization Address [facility] Co de Phone Number [facility] [address] [place] [address] * (ABNORMAL) Calcium Phosphorus Product, Adjusted (01/16/2025 3:00 AM EDT) Only the most recent of3 resultswithin the time period is included. Albumin 3.8 3.6 - 5.4 g/dL [facility] Calcium 7.5(L) 8.6 - 10.3 mg/dL [facility] Phosphorus, Serum 5.1(H) 2.5 - 5.0 mg/dL [facility] Ca*PO4 38.2 <55.0 mg2/dL2 [facility] Calcium, Adjusted Total 7.7(L) 8.6 - 10.3 mg/dL [facility] CA*PO4 CORRCTD 39.3 <55.0 mg2/dL2 [facility] 01/16/2025 3:00 AM EDT 01/17/2025 12:34 PM EDT Justin Sweet MD LAB [id number] SOLICITED RESULTS Final Result Performing Organization Address City/[facility]/ZIP Co de Phone Number [facility] [address] [place] [address] * BUN/CREATININE RATIO (01/16/2025 3:00 AM EDT) Only the most recent of3 resultswithin the time period is included. BUN/Creatinine Ratio 6.5 <=23.0 [facility] 01/16/2025 3:00 AM EDT 01/17/2025 12:34 PM EDT Justin Sweet MD LAB [id number] SOLICITED RESULTS Final Result Performing Organization Address City/[facility]/ZIP Co de Phone Number [facility] [address] [place] [address] * (ABNORMAL) TSAT (01/16/2025 3:00 AM EDT) Only the most recent of3 resultswithin the time period is included. Iron 43(L) 65 - 175 ug/dL [facility] Transferrin 128(L) 215 - 365 mg/dL [facility] TIBC 179(L) 211 - 406 ug/dL [facility] Iron Saturation (TSat) 24 22 - 52 % [facility] 01/16/2025 3:00 AM EDT 01/17/2025 12:34 PM EDT Justin Sweet MD LAB BLOOD ORDERABLES Final Re sult Performing Organization Address [facility] Co de Phone Number [facility] [address] [place] [address] * Vitamin D 25 Hydroxy (01/16/2025 3:00 AM EDT) [facility] Vitamin D, 25-Hydroxy 35 30 - 100 ng/mL [facility] Comment: Status Adult Pediatric Deficient: <20 <15 Insufficient: 20-29 15-19 Sufficient: 30-100 20-100 01/16/2025 3:00 AM EDT 01/17/2025 12:34 PM EDT Justin Sweet MD LAB BLOOD ORDERABLES Final Re sult Performing Organization Address [facility] de Phone Number [facility] [address] [place] [address] * Hepatitis B Surface Antibody (01/16/2025 3:00 AM EDT) [facility] Hep B Surface Antibody 11 mIU/mL [facility] Comment: Interpretation: <10: No Immunity >=10: Probable Immunity 01/16/2025 3:00 AM EDT 01/17/2025 12:34 PM EDT Justin Sweet MD LAB BLOOD ORDERABLES Final Re sult Performing Organization Address [facility] de Phone Number [facility] [address] [place] [address] * (ABNORMAL) CBC and Differential (01/16/2025 3:00 AM EDT) Only the most recent of3 resultswithin the time period is included. [facility] DIFFERENTIAL MANUAL, 2 Not Indicated [facility] White Blood Cells 6.8 4.2 - 9.1 K/uL [facility] RBC 2.89(L) 4.63 - 6.08 M/uL [facility] Hgb 9.4(L) 13.7 - 17.5 g/dL [facility] Hemoglobin x 3 28.2(L) 41.1 - 52.5 g/dL [facility] Hematocrit 26.8(L) 40.1 - 51.0 % [facility] MCV 92.7(H) 79.0 - 92.2 fL [facility] MCH 32.5(H) 25.7 - 32.2 pg [facility] MCHC 35.1 32.3 - 36.5 g/dL [facility] RDW 12.3 11.6 - 14.4 % [facility] Platelets 258 163 - 337 K/uL [facility] Neutrophils Relative 76.6(H) 34.0 - 67.9 % [facility] Lymphocytes Relative 12.0(L) 21.8 - 53.1 % [facility] Monocytes 7.2 5.3 - 12.2 % [facility] Eosinophils Relative 3.1 0.8 - 7.0 % [facility] Basophils Relative 0.7 0.2 - 1.2 % [facility] Immature Granulocytes 0.4 0.0 - 1.0 % [facility] 01/16/2025 3:00 AM EDT 01/17/2025 12:22 PM EDT Justin Sweet MD LAB BLOOD ORDERABLES Final Re sult Performing Organization Address City/[facility]/ZIP Co de Phone Number [facility] [address] [place] [address] * ALT (01/16/2025 3:00 AM EDT) Only the most recent of3 resultswithin the time period is included. ALT (SGPT) 20 10 - 49 U/L [facility] 01/16/2025 3:00 AM EDT 01/17/2025 12:34 PM EDT Justin Sweet MD LAB BLOOD ORDERABLES Final Re sult Performing Organization Address City/[facility]/ZIP Co de Phone Number [facility] [address] [place] [address] * AST (01/16/2025 3:00 AM EDT) Only the most recent of3 resultswithin the time period is included. AST (SGOT) 12 <34 U/L [facility] 01/16/2025 3:00 AM EDT 01/17/2025 12:34 PM EDT Justin Sweet MD LAB BLOOD ORDERABLES Final Re sult Performing Organization Address [facility] Co de Phone Number [facility] [address] [place] [address] * (ABNORMAL) Protein, total (01/16/2025 3:00 AM EDT) Only the most recent of3 resultswithin the time period is included. Total Protein 5.9(L) 6.4 - 8.9 g/dL [facility] 01/16/2025 3:00 AM EDT 01/17/2025 12:34 PM EDT Justin Sweet MD LAB BLOOD ORDERABLES Final Re sult Performing Organization Address [facility] de Phone Number [facility] [address] [place] [address] * Alkaline phosphatase (01/16/2025 3:00 AM EDT) Only the most recent of3 resultswithin the time period is included. Alkaline Phosphatase 71 46 - 116 U/L [facility] 01/16/2025 3:00 AM EDT 01/17/2025 12:34 PM EDT Justin Sweet MD LAB BLOOD ORDERABLES Final Re sult Performing Organization Address [facility] de Phone Number [facility] [address] [place] [address] * (ABNORMAL) PTH, Intact (01/16/2025 3:00 AM EDT) PTH, Intact 65(L) 160 - 721 pg/mL [facility] Comment: Suggested (KDIGO) ESRD maintenance range is two to nine times the upper normal limit (80.1 pg/mL) for the laboratory. 01/16/2025 3:00 AM EDT 01/17/2025 12:34 PM EDT us Justin Sweet MD LAB BLOOD ORDERABLES Final Re sult Performing Organization Address [facility]/ZIP Co de Phone Number [facility] [address] [place] [address] * Magnesium (01/16/2025 3:00 AM EDT) Only the most recent of3 resultswithin the time period is included. Magnesium 2.2 1.9 - 2.7 mg/dL [facility] 01/16/2025 3:00 AM EDT 01/17/2025 12:34 PM EDT us Justin Sweet MD LAB BLOOD ORDERABLES Final Re sult Performing Organization Address [facility] de Phone Number [facility] [address] [place] [address] * (ABNORMAL) Lactate dehydrogenase (01/16/2025 3:00 AM EDT) Only the most recent of3 resultswithin the time period is included. LDH 285(H) 120 - 246 U/L [facility] 01/16/2025 3:00 AM EDT 01/17/2025 12:34 PM EDT us Justin Sweet MD LAB BLOOD ORDERABLES Final Re sult Performing Organization Address [facility] Co de Phone Number [facility] [address] [place] [address] * Glucose, random (01/16/2025 3:00 AM EDT) Only the most recent of3 resultswithin the time period is included. Glucose 94 70 - 99 mg/dL [facility] Comment: ADA guidelines outline the following fasting glucose ranges: Normal: <100 Prediabetes: 100-125 Diabetes: >125 01/16/2025 3:00 AM EDT 01/17/2025 12:34 PM EDT us Justin Sweet MD LAB BLOOD ORDERABLES Final Re sult Performing Organization Address [facility] de Phone Number [facility] [address] [place] [address] * (ABNORMAL) Ferritin (01/16/2025 3:00 AM EDT) Only the most recent of3 resultswithin the time period is included. Ferritin 1,192(H) 22 - 322 ng/mL [facility] 01/16/2025 3:00 AM EDT 01/17/2025 12:34 PM EDT Justin Sweet MD LAB BLOOD ORDERABLES Final Re sult Performing Organization Address [facility] de Phone Number [facility] [address] [place] [address] * (ABNORMAL) Creatinine, serum (01/16/2025 3:00 AM EDT) Only the most recent of3 resultswithin the time period is included. Creatinine 6.48(H) 0.70 - 1.30 mg/dL [facility] 01/16/2025 3:00 AM EDT 01/17/2025 12:34 PM EDT Justin Sweet MD LAB BLOOD ORDERABLES Final Re sult Performing Organization Address [facility] de Phone Number [facility] [address] [place] [address] * (ABNORMAL) Bilirubin, total (01/16/2025 3:00 AM EDT) Only the most recent of3 resultswithin the time period is included. Total Bilirubin 0.2(L) 0.3 - 1.2 mg/dL [facility] 01/16/2025 3:00 AM EDT 01/17/2025 12:34 PM EDT Justin Sweet MD LAB BLOOD ORDERABLES Final Re sult Performing Organization Address [facility] de Phone Number [facility] [address] [place] [address] * (ABNORMAL) Lipid panel (01/16/2025 3:00 AM EDT) Cholesterol 170 mg/dL [facility] Comment: Optimal: <200 Borderline: 200-239 High Risk: >239 Triglycerides 128 mg/dL [facility] Comment: Optimal: <150 Borderline: 150-200 High Risk: >200 HDL 57(L) mg/dL [facility] Comment: Optimal: >59 Borderline: 40-59 High Risk: <40 LDL-Calc 87 mg/dL [facility] Comment: Optimal: <100 Borderline: 100-159 High Risk: >159 VLDL Cholesterol Yan 26 mg/dL [facility] Comment: Optimal: <30 Borderline: 30-40 High Risk: >40 Chol/HDL Ratio 3.0 [facility] Comment: Optimal: <3.3 High Risk: >6.2 01/16/2025 3:00 AM EDT 01/17/2025 12:34 PM EDT Justin Sweet MD LAB BLOOD ORDERABLES Final Re sult Performing Organization Address [facility] de Phone Number [facility] [address] [place] [address] * (ABNORMAL) Electrolyte panel (01/16/2025 3:00 AM EDT) Only the most recent of3 resultswithin the time period is included. Sodium 128(L) 136 - 145 mEq/L [facility] Comment:Verified by repeat a nalysis Potassium 4.1 3.4 - 5.0 mEq/L [facility] Chloride 92(L) 98 - 107 mEq/L [facility] Bicarbonate (CO2) 23 21 - 31 mEq/L [facility] Anion Gap 13 3 - 14 mEq/L [facility] 01/16/2025 3:00 AM EDT 01/17/2025 12:34 PM EDT us Justin Sweet MD LAB BLOOD ORDERABLES Final Re sult Performing Organization Address [facility] Co de Phone Number [facility] [address] [place] [address] * (ABNORMAL) Phosphorus (01/02/2025 3:00 AM EDT) Only the most recent of3 resultswithin the time period is included. Phosphorus, Serum 6.4(H) 2.5 - 5.0 mg/dL [facility] 01/02/2025 3:00 AM EDT 01/03/2025 1:22 PM EDT us Justin Sweet MD LAB BLOOD ORDERABLES Final Re sult [facility] [address] [place] [address] from Last 3 Months Insurance Medicare [facility] Medicare [facility] Care Teams [employer] Relationship Specialty Start Date End Date Gerald Davis MD [address] [place] [place] [phone] PCP - General 07/28/20
--- OUTSIDE RECORDS SUMMARY | 2025-02-05 16:37 | XMS_ITS ---
Author Organization [facility] Care Team Providers Care Poly Area Supervisor Name Role Phone Carolyn Grissom Unavailable Unavailable Dorie Khan Unavailable Unavailable Lucretia Chiang Unavailable Unavailable Flavia Santana Unavailable Unavailable Naeem Stoddard Unavailable Unavailable Ralf Pearl Unavailable Unavailable Allergies and adverse reactions Code CodeSystem Substance Reaction Severity StartDate Concern Status 181546344 SNOMED CT Statins Unknown 08/03/[address] NSAIDs Unknown 08/03/2023 active HMG-COA reductas e inhibitor Unknown 08/03/2023 active 32225 RXNORM buPROPion Unknown 08/03/2023 active Care Team Name Role Address Phone Organization Dates Ralf SEARS [address] [place] [address], [id number], [facility] (Office): : [facility] 01/10/2025 - 02/02/2025 Carolyn Grissom [address] [place] [address], [place], [address], [facility] (Office): : [facility] 01/10/2025 - 02/02/2025 Dorie Khan [address] [place], [address], [facility] (Office): : [facility] 01/10/2025 - 02/02/2025 Lucretia Chiang [address] [facility] [address], [place], [address], [facility] (Office): : [facility] 01/10/2025 - 02/02/2025 Flavia Santana [address], [place], [address], [facility] (Office): : [facility] 01/10/2025 - 02/02/2025 Naeem Stoddard [address] [place], [address], [facility] (Office): : [facility] 01/10/2025 - 02/02/2025 Imaging Narrative Note Date Imaging Narrative No te 02/01/2025 XRAY CHEST 2 VIEWSee NoteFINDINGS: Examination of the chest demonstrates a slight infiltrate versus atelectasis in the right lower lobe. The mediastinum is grossly unremarkable. The cardiac size is normal in size. Aortic calcifications are noted. DJD of the spine is noted.CONCLUSION: Slight right lower lobe process as described. New from 01/21/2025. Clinical correlation is advised. Clinical or repeat examination follow-up is advised.ELECTRONICALLY SIGNED BY RITA PAN M.D. 02/01/2025 8:49:03 AM EDT.Reason for Study: J12.89 OTHER VIRAL PNEUMONIAPrincipal Result Fashion Director Party Plan Sales: RITA PAN ([id number])Geothermal Sheet Metal Worker: DARRON GUTIERREZ ([email or web address])Intake Nurse Geothermal Sheet Metal Worker: DON 01/21/2025 XRAY CHEST 2 VIEWFIN DINGS: There is a patchy opacity in the left lower lobe. The cardiomediastinal silhouette is not enlarged. No pleural effusion or pneumothorax is seen. There are no acute osseous abnormalities.CONCLUSION: Mild left lower lobe pneumonia vs. atelectasis.ELECTRONICALLY SIGNED BY FLAVIO GARCIA D.O. 01/21/2025 2:52:12 PM EDT.Reason for Study: R05.2 SUBACUTE COUGHPrincipal Result Fashion Director Party Plan Sales: FLAVIO GARCIA ([id number])Geothermal Sheet Metal Worker: DARRON GUTIERREZ ([email or web address])Intake Nurse Geothermal Sheet Metal Worker: DON Goals Section Goals Description Status Target Date I plan to discharge to: Spec durga- To community alone, To Community with Family, [facility], LTC Placement, Other- Undecided at current time. Pending outcome of therapy sessions, clinical medical stability progress reviewed weekly. Active 04/18/2025 I will be able to function a t the fullest potential possible as outlined by the interdisciplinary team through the review date. Active 04/18/2025 I will be at reduced risk fo r complications of self care performance deficit and impaired mobility daily through the review date. Active 04/18/2025 I will be at reduced risk fo r skin breakdown daily through the review date. Active 04/18/2025 I will be free from discomfo rt or adverse side effects of diuretic therapy through the review date. Active 04/18/2025 I will be free from discomfo rt or adverse side effects related to anti-depressant therapy through the review date. Active 04/18 I will be free from discomfo rt or adverse side effects related to anti-psychotic therapy through the review date. Active 2024 I will be free from discomfo rt or adverse side effects related to mood stabilizer therapy through the review date. Active 04/18 I will be free from s/s/x of fluid deficit by/through the review date. Active 04/18/2025 I will be free from s/sx of dehydration through next review date. Active 04/18/2025 I will be free of fall relat ed injury through the next review date. Active 04/18/2025 I will exhibit increased com pliance with ordered diet and dietary interventions by next review date. Active 04/18/2025 I will express satisfaction with type of activities and level of activity involvement when asked through the review date. Active 04/18/2025 I will have no signs or symp toms of complications from dialysis through the next review date. Active 04/18/2025 I will maintain adequate nut ritional status as evidenced by maintaining weight within +/-5% of CBW, no s/sx of malnutrition, and consuming at least 76% of all meals daily through review date. Active 04/18/2025 I will maintain or improve m y independence and mobility through review date. Active 04/18/2025 I will participate in activi ties of choice 1-2 times per week by review date Active 04/18/2025 I will remain free from sign s/ symptoms of hypertension complications through review date. Active 04/18/2025 I will show effectiveness of medication use as evidenced by a reduction in convulsionsymptoms by the review date. Active I will verbalize adequate re lief of pain or ability to cope with incompletely relieved pain through the review date. Active My risk for respiratory comp lications and infections will be mitigated through the review date. Active 04/18/2025 My skin integrity will be im proved or maintained by next review date. Active 04/18/2025 The resident's advance direc tives are in effect and their wishes will be carried out through the next review. Active Functional Status Code Name Recorded Time Value Entered By Eating 02/02/2025 Independent jonna Lying to sitting on side of bed 02/02/2025 Independent jonna Oral hygiene 02/02/2025 Setup or clean-up assistance jonna Personal hygiene 02/02/2025 Setup or clean-up assist ance jonna Shower/bathe self 02/02/2025 Supervision or touching assistance jonna Sit to lying 02/02/2025 Independent jonna Toilet transfer 02/02/2025 Supervision or t ouching assistance jonna Toileting hygiene 02/02/2025 Independent jonna Immunizations Immunization Status Vaccine Details Vaccine Code CodeSystem Date Notes Hepatitis B completed hepatitis B vaccine, adult dosage lotNumber: [id number] CVX created date: 01/24/2025 administer ed date: 10/27/2016 Hepatitis B completed hepatitis B vaccine, adult dosage lotNumber: [id number] CVX created date: 01/24/2025 administer ed date: 05/26/2016 Hepatitis B completed hepatitis B vaccine, adult dosage lotNumber: [id number] CVX created date: 01/24/2025 administer ed date: 04/28/2016 Diphtheria completed tetanus toxoid, reduced diphtheria toxoid, and acellular pertussis vaccine, adsorbed 115 CVX created date: 04/20/2024 administer ed date: 12/24/2010 PCV13 (Pneumococcal Conjugate)Vaccin e completed pneumococcal conjugate vaccine, 13 valent 133 CVX created date: 04/20/2024 administer ed date: 09/26/2015 PPSV23 (Previous Pneumococcal Polysaccharide)V accine completed pneumococcal polysaccharide vaccine, 23 valent lotNumber: [id number] Given 0.5 33 CVX created date: 01/24/2025 administer ed date: 09/25/2014 doseUOMNonc muna:mL (COVID-19) Updated Moderna Vaccine completed SARS-COV-2 (COVID-19) vaccine, mRNA, spike protein, LNP, preservative free, 50 mcg/0.5 mL dose 312 CVX created date: 04/10/2024 administer ed date: 07/06/2023 (Tetanus, Diphtheria, and Acellular Pertussis) Tdap completed tetanus toxoid, reduced diphtheria toxoid, and acellular pertussis vaccine, adsorbed 115 CVX created date: 04/10/2024 administer ed date: 09/21/2022 (Pneumococcal) PCV20- Conjugate 20-valent Vaccine cancelled Pneumococcal conjugate vaccine 20-valent (PCV20), polysaccharide [id number] conjugate, adjuvant, preservative free 216 CVX created date: 01/25/2025 consent date: 01/10/2025 Educated by on 01/25/2025 (Influenza) FLUAD - Adjuvanted - High Dose - 65+ completed Influenza, adjuvanted, inactivated, trivalent, injectable, preservative free 168 CVX created date: 01/15/2025 administer ed date: 05/07/2024 (COVID-19) Updated Moderna Vaccine cancelled SARS-COV-2 (COVID-19) vaccine, mRNA, spike protein, LNP, preservative free, 50 mcg/0.5 mL dose 312 CVX created date: 01/25/2025 consent date: 01/10/2025 Educated by on 01/25/2025 Medications Section Medication Name Status Code CodeSystem Dose Route Frequency Admin Type Sig Text Start Date End Date amLODIPine Besylate Oral Tablet 5 MG active 19721216 RXNORM 5 mg Oral one time a day Routine Give 5 mg by mouth one time a day for hypert ension 2024 - Ascorbic Acid Oral Wafer 500 MG active 846485 RXNORM 1000 mg Oral one time a day Routine Give 1000 mg by mouth one time a day for supple ment 2024 - Ventolin HFA Inhalation Aerosol Solution 108 (90 Base) MCG/ACT active 108834 RXNORM 2 puff Oral as needed PRN Give 2 puff by mouth every 6 hours as needed for SOB 2024 - clonazePAM Oral Tablet 1 MG active 19740825 RXNORM 1 mg Oral at bedtime Routine Give 1 mg by mouth at bedtim e for anxiet y 2024 - clonazePAM Oral Tablet 0.5 MG active 19740824 RXNORM 0.5 mg Oral two times a day Routine Give 0.5 mg by mouth two times a day for anxiet y 2024 - Cyanocobalami n Oral Tablet 500 MCG active 562219 RXNORM 1000 mcg Oral one time a day Routine Give 1000 mcg by mouth one time a day for vitami n 2024 - Meclizine HCl Oral Tablet 25 MG aborted 224532 RXNORM 25 mg Oral two times a day Routine Give 25 mg by mouth two times a day for antihi stamin e 01/31 OXcarbazepine Oral Tablet 600 MG active 000218 RXNORM 600 mg Oral at bedtime Routine Give 600 mg by mouth at bedtim e for mood stabil izer 2024 - Furosemide Oral Tablet 80 MG active 19760916 RXNORM 80 mg Oral one time a day Routine Give 80 mg by mouth one time a day every e, Rena, Sat, Sun for fluid overlo ad 2024 - lamoTRIgine Oral Tablet 100 MG active 19830824 RXNORM 100 mg Oral one time a day Routine Give 100 mg by mouth one time a day relate d to END STAGE RENAL DISEAS E (N18.6 ) 2024 - Prochlorperaz ine Maleate Oral Tablet 5 MG active 650495 RXNORM 5 mg Oral two times a day Routine Give 5 mg by mouth two times a day for antips ychoti c 2024 - Lisinopril Oral Tablet 20 MG active 090871 RXNORM 20 mg Oral one time a day Routine Give 20 mg by mouth one time a day for hypert ension 2024 - Metoprolol Succinate Oral Capsule ER 24 Hour Sprinkle 25 MG active 687007 5 RXNORM 25 mg Oral one time a day Routine Give 25 mg by mouth one time a day for hypert ension 2024 - OXcarbazepine Oral Tablet 300 MG active 985597 RXNORM 300 mg Oral one time a day Routine Give 300 mg by mouth one time a day for mood stabil izer 2024 - Sodium Polystyrene Sulfonate Oral Powder active 342060 RXNORM 15 gram Oral one time a day Routine Give 15 gram by mouth one time a day every Tue, Rena, Sun for therap eutic 2024 - rOPINIRole HCl Oral Tablet 2 MG active 158807 RXNORM 2 mg Oral at bedtime Routine Give 2 mg by mouth at bedtim e for tremor s 2024 - traZODone HCl Oral Tablet 50 MG active 794347 RXNORM 50 mg Oral at bedtime Routine Give 50 mg by mouth at bedtim e for antide pressa nt 2024 - Vitamin B Complex Oral Tablet active 1 tablet Oral one time a day Routine Give 1 tablet by mouth one time a day for vitami n 2024 - Sevelamer HCl Oral Tablet 800 MG active 064539 RXNORM 1 tablet Oral with meals Routine Give 1 tablet by mouth with meals for ESRD on HD 2024 - Nicotine Transdermal Patch 24 Hour 21 MG/24HR aborted RXNORM 1 patch Transde rmal one time a day Routine Apply 1 patch transd ermall y one time a day for PSYCHO THERAP EUTIC AND NEUROL OGICAL AGENTS - MISC., CHEMIC ALS and remove per schedu le 01/31 Acetaminophen Oral Tablet 325 MG active 279235 RXNORM 2 tablet Oral as needed PRN Give 2 tablet by mouth every 6 hours as needed for Pain Total Dose 650mg * *DO NOT EXCEED 3 grams in 24 hours* * AND Give 2 tablet by mouth every 6 hours as needed for Temper ature greate r than 101.F Total Dose 650mg * *DO NOT EXCEED 3 grams in 24 hours* * 2024 - 231595 RXNORM 2 tablet Oral as needed PRN Give 2 tablet by mouth every 6 hours as needed for Pain Total Dose 650mg * *DO NOT EXCEED 3 grams in 24 hours* * AND Give 2 tablet by mouth every 6 hours as needed for Temper ature greate r than 101.F Total Dose 650mg * *DO NOT EXCEED 3 grams in 24 hours* * 2024 - TraMADol HCl Tablet 50 MG active 042294 RXNORM 1 tablet Oral as needed PRN Give 1 tablet by mouth every 6 hours as needed for modera te and severe pain 2024 - Doxycycline Hyclate Tablet 100 MG aborted 141695 3 RXNORM 1 tablet Oral two times a day Routine Give 1 tablet by mouth two times a day for infect ion relate d to PNEUMO AIRAM, UNSPEC IFIED ORGANI SM (J18.9 ) for 10 Days 01/24 Doxycycline Hyclate Tablet 100 MG active 190923 3 RXNORM 1 tablet Oral two times a day Routine Give 1 tablet by mouth two times a day for infect ion relate d to PNEUMO AIRAM, UNSPEC IFIED ORGANI SM (J18.9 ) for 19 Admini strati ons 02/03 Guaifenesin-D M Liquid 100-10 MG/5ML active 995802 4 RXNORM 10 ml Oral as needed PRN Give 10 ml by mouth every 4 hours as needed for Cough for 10 Days 02/03 Lidocaine Patch 4 % active 592211 8 RXNORM n/a n/a Topical in the morning Routine Apply to Right Knee topica lly in the mornin g for pain right knee for 12 hours then remove 2024 - Lidocaine Patch 4 % active 182410 8 RXNORM n/a n/a Topical in the morning Routine Apply to L Knee topica lly in the mornin g for pain+a rthrit is for 12 hours then remove 2024 - Triamcinolone Acetonide Injection Suspension 40 MG/ML aborted 567147 4 RXNORM 2 ml Intraar ticular one time only One Time Only 2 ml intra- articu larly one time only for pain for 21 Days Bilate ral Knee inject ion, 1 mL to each knee, to be perfor med by physia judit LIRA. 02/01 Lidocaine HCl Injection Solution 1 % active 158600 3 RXNORM 8 ml Intraar ticular one time only One Time Only 8 ml intra- articu larly one time only for pain for 21 Days Bilate ral knee inject ion, 4 mL to each knee, to be admini stered by physia judit LIRA. 02/18 Meclizine HCl Oral Tablet 25 MG active 580639 RXNORM 25 mg Oral as needed PRN Give 25 mg by mouth every 12 hours as needed for antihi stamin e 2024 - Kenalog-40 Injection Suspension 40 MG/ML active 176186 8 RXNORM 2 ml Intraar ticular one time only One Time Only 2 ml intra- articu larly one time only for pain for 7 Days Bilate ral Knee inject ion, 1 mL to each knee, to be perfor med by physia judit LIRA. 02/08 Mental Status Section Date Assessment Total Score Description 01/14/2025 BIMS 15 cognitively int act CAM 0 No delirium ind icated PHQ-9 00 04/23/2024 BIMS 15 cognitively int act CAM 0 No delirium ind icated PHQ-9 12 moderate depres barry Problems Problem # Description Date of onset Resolved Date Code CodeSystem Concern Status 1 PNEUMONIA, UNSPECIFIED ORGANISM 01/22/[address] active 2 CHRONIC OBSTRUCTIVE PULMONARY DISEASE, UNSPECIFIED 01/12/[address] active 3 METABOLIC ENCEPHALOPATHY 01/11/[address] active 4 REPEATED FALLS 01/11/[address] active 5 RHABDOMYOLYSIS 01/11/[address] active 6 UNSPECIFIED PROTEIN-CALORIE MALNUTRITION 01/11/[address] active 7 COVID-19 04/08/20 24 01/10/[address] completed 8 ENCEPHALOPATHY, UNSPECIFIED 04/08/20 24 01/10/[address] completed 9 ACUTE PULMONARY EDEMA 08/03/19 24 04/08/[address] completed 10 ACUTE RESPIRATORY FAILURE, UNSPECIFIED WHETHER WITH HYPOXIA OR HYPERCAPNIA 08/03/19 24 04/08/[address] completed 11 ALTERED MENTAL STATUS, UNSPECIFIED 08/03/19 24 04/08/[address] completed 12 ANEMIA IN OTHER CHRONIC DISEASES CLASSIFIED ELSEWHERE 08/03/[address] active 13 DEPENDENCE ON RENAL DIALYSIS 08/03/[address] active 14 DIFFICULTY IN WALKING, NOT ELSEWHERE CLASSIFIED 08/03/19 24 04/08/[address] completed 15 END STAGE RENAL DISEASE 08/03/[address] active 16 ESSENTIAL (PRIMARY) HYPERTENSION 08/03/[address] active 17 INFLUENZA DUE TO UNIDENTIFIED INFLUENZA VIRUS WITH OTHER RESPIRATORY MANIFESTATIONS 08/03/19 24 04/08/[address] completed 18 INTERSTITIAL PULMONARY DISEASE, UNSPECIFIED 08/03/19 24 01/10/[address] completed 19 MOOD DISORDER DUE TO KNOWN PHYSIOLOGICAL CONDITION, UNSPECIFIED 08/03/[address] active 20 MUSCLE WASTING AND ATROPHY, NOT ELSEWHERE CLASSIFIED, LEFT LOWER LEG 08/03/19 24 04/08/[address] completed 21 MUSCLE WASTING AND ATROPHY, NOT ELSEWHERE CLASSIFIED, RIGHT LOWER LEG 08/03/19 24 04/08/[address] completed 22 OTHER LACK OF COORDINATION 08/03/19 24 04/08/[address] completed 23 TOBACCO USE 08/03/19 Z72.0 ICD-10-CM active 24 UNSPECIFIED ATRIAL FLUTTER 08/03/[address] active 25 UNSPECIFIED FALL, SUBSEQUENT ENCOUNTER 08/03/19 24 04/08/[address] completed 26 UNSPECIFIED MOOD [AFFECTIVE] DISORDER 08/03/19 24 01/10/[address] completed 27 UNSPECIFIED PROTEIN-CALORIE MALNUTRITION 08/03/19 24 01/10/[address] completed Reason for Referral No Reasons for Referral Entered Diagnostic Results Result Code Code System Date Test Result Interpretation Reference Range Status Notes 00708-3 [facility] 02/01 XRAY CHEST 2 VIEW Completed Result for: LUIS LACY ( 1950, M) [address] [facility] 01/31 XRAY CHEST 2 VIEW Final XRAY CHEST 2 VIEWSee NoteFINDINGS: Examination of the chest demonstrates a slight infiltrate versus atelectasis in the right lower lobe. The mediastinum is grossly unremarkable. The cardiac size is normal in size. Aortic calcifications are noted. DJD of the spine is noted.CONCLUSION: Slight right lower lobe process as described. New from 01/21/2025. Clinical correlation is advised. Clinical or repeat examination follow-up is advised.ELECTRONIC ALLY SIGNED BY RITA PAN M.D. 02/01/2025 8:49:03 AM EDT.Reason for Study: J12.89 OTHER VIRAL PNEUMONIAPrincipal Result Fashion Director Party Plan Sales: RITA PAN ([id number])Techni huang: DARRON GUTIERREZ (CALEB)Transcrip tion Geothermal Sheet Metal Worker: DON 73530-7 [facility] 01/21 XRAY CHEST 2 VIEW Completed Result for: LUIS LACY ( 1950, M) [address] [facility] 01/21 XRAY CHEST 2 VIEW Final XRAY CHEST 2 VIEWFINDINGS: There is a patchy opacity in the left lower lobe. The cardiomediastinal silhouette is not enlarged. No pleural effusion or pneumothorax is seen. There are no acute osseous abnormalities.CONC LUSION: Mild left lower lobe pneumonia vs. atelectasis.ELECTR ONICALLY SIGNED BY FLAVIO GARCIA D.O. 01/21/2025 2:52:12 PM EDT.Reason for Study: R05.2 SUBACUTE COUGHPrincipal Result Fashion Director Party Plan Sales: FLAVIO GARCIA ([id number])Techni huang: DARRON GUTIERREZ (CALEB)Transcrip tion Geothermal Sheet Metal Worker: DON Test Code Code System Name Date 01/31/2025 01/21/2025 Social History Social History Observation Description Start Date End Date Code Code System Current Smoking Status Tobacco smoking consumption unknown 733415607 SNOMED CT Sex Assigned At Male 1950 94915-5 [facility] Gender Identity Vital Signs Code Code System Vitals Name Values and Units Timing Information 9279-1 [facility] Respiratory Rate Value=18.0 Units=/m in 02/02/2025 8462-4 [facility] Blood Pressure-Diastolic Value=68 Un its=mmHg 02/02/2025 8480-6 [facility] Blood Pressure-Systolic Fdbzd=345 Un its=mmHg 02/02/2025 8310-5 [facility] Body Temperature Value=97.9 Units= F 02/02/2025 8867-4 [facility] Heart rate Value=77.0 Units=/min 67746-2 [facility] O2 % BldC Oximetry Value=94.0 Units= % 02/02/2025 84224-8 [facility] Pain Level Value=0.0 02/01/2025 12032-6 [facility] Weight Ggaim=411.8 Units=Lbs 04/2025 8302-2 [facility] Height Value=70.0 Units=Inches 08/03/2023
[2025-02-05 16:38] VITALS: BP 151/61
--- NOTE | 2025-02-05 18:17 | ED.FALL ---
HPI - Fall General Chief Complaint: Fall Stated Complaint: FALL, WEAKNESS, DIFF AMBULATING Time Seen by Provider: 02/05/25 17:34 History of Present Illness ED Provider: Jimmy Schwarz MD HPI Narrative: This is a 74-year-old male with history of end-stage renal disease, HFrEF, among other comorbid medical conditions with recurrent falls recently released from group home facility for acute rehabilitation and 3 days ago went to his ex-'s house who has less stairs to maneuver. He was dialyzed yesterday. He has been eating and drinking well. He presents for lightheadedness and low mechanism fall uses has in the afternoon he grabbed a beam that separates the kitchen and living room while walking and slowly spun around it and had what he describes as a gentle fall onto the right hip. He denies pain he felt slightly lightheaded for before the event no palpitations chest pain difficulty breathing no headache no focal neurologic complaints Additional history from ex- who has been helping him recover and who is at the bedside. She states that he was treated for full 14 days of antibiotics the initial 7 days was doxycycline she is not sure the subsequent course he has had persistent cough but no fevers no difficulty breathing or appearing distressed per her. She says he is chronically unstable due to severe bilateral knee arthritis but he is unable to get operated on due to the renal disease Related Data Home Medications ?Medication ?Instructions ?Recorded ?Confirmed ascorbic acid (vitamin C) 500 mg 1,000 mg PO DAILY 02/28/23 02/06/25 tablet clonazepam 1 mg tablet 0.5 mg PO BID@0900,1200 02/28/23 02/06/25 cyanocobalamin (vitamin B-12) 1,000 mcg PO DAILY 02/28/23 02/06/25 1,000 mcg tablet furosemide 80 mg tablet 80 mg PO SUTUTHSA 02/28/23 02/06/25 prochlorperazine maleate 5 mg 5 mg PO BID 02/28/23 02/06/25 tablet albuterol sulfate 90 mcg/actuation 2 puff inhalation Q6H PRN 08/01/23 02/06/25 aerosol inhaler (Ventolin HFA) Shortness Of Breath Or Wheezing vitamin B complex 1 tab PO DAILY 08/01/23 02/06/25 lamotrigine 100 mg tablet 100 mg PO DAILY 04/04/24 02/06/25 (Lamictal) meclizine 25 mg tablet 25 mg PO BID PRN dizziness 04/04/24 02/06/25 sodium polystyrene sulfonate 15 g PO SUTUTHSA 07/03/24 02/06/25 trazodone 50 mg tablet 50 mg PO BEDTIME insomnia 07/03/24 02/06/25 clonazepam 1 mg tablet 1 mg PO BEDTIME 01/06/25 02/06/25 ropinirole 2 mg tablet 2 mg PO BEDTIME 01/06/25 02/06/25 acetaminophen 325 mg tablet 325 mg PO QID PRN Pain, Mild 02/06/25 02/06/25 amlodipine 5 mg tablet 5 mg PO DAILY 02/06/25 02/06/25 lidocaine 4 % topical patch 1 patch topical DAILY PRN Pain 02/06/25 02/06/25 oxcarbazepine 600 mg tablet 600 mg PO BID 02/06/25 02/06/25 Previous Rx's ?Medication ?Instructions ?Recorded lisinopril 20 mg tablet 20 mg PO DAILY #90 tabs 07/19/24 metoprolol succinate 25 mg 25 mg PO DAILY #90 tabs 07/19/24 tablet,extended release 24 hr Allergies Allergy/AdvReac Type Severity Reaction Status Date / Time bupropion (From WELLBUTRIN) AdvReac Unknown CONSTIPATIO Verified 02/05/25 14:44 N NSAIDS (Non-Steroidal AdvReac Unknown RENAL Verified 02/05/25 14:44 Anti-Inflamma (NSAIDS (NON-STEROIDAL ANTI-INFLAMMA) [id number] Reductase AdvReac Unknown UNK Verified 02/05/25 14:44 Inhibitor ([id number]-VZL-UQB REDUCTASE INHIBITOR) [facility] Past Medical History Medical History ESRD (end stage renal disease) on dialysis CRF (chronic renal failure) Anemia ESRD (end stage renal disease) CKD (chronic kidney disease) Hypoxia Atrial flutter Nicotine dependence, cigarettes, uncomplicated AV fistula Essential hypertension Mood disorder Effusion, pericardium Pleural effusion, left Chronic kidney 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 Surgical History History of colonoscopy History of hernia repair History of parathyroidectomy Social History Social History Household Members: None Housing: Apartment Housing Other:: pt reports transitioning to assisted living Do you presently have visiting nurse or other home services: No (patient reports having it in the past) Alcohol intake: former Comment: patient refuses bed alarm, and refuses to wear non-skid red socks Patient Tobacco Use Status: Former Tobacco user Tobacco use type: Cigarette Cigarette Packs Per Day: 0.5 Cigarettes Per Day: 10.0 Years Smoked: 60 +/- e-Cigarette/Vaping Use: Currently Using Second Hand Smoke Exposure: Yes Advance Directives Date on File: 03/01/23 service: No Physical Exam Exam: Exam: EXAM: Gen: Alert, awake, well appearing, well hydrated. Head: Atraumatic Eyes: Anicteric, Normal conjunctiva. ENT: Moist mucosa, no pallor. ? Neck: Supple. Skin: ?No observable rash or bruising on exposed or examined skin Respiratory: Breathing comfortably, No distress.Clear to auscultation bilaterally, symmetric chest expansion, No wheeze, rales, ronchi. Cardiovascular: Regular rate and rhythm. No murmurs or rub. Well perfused periphery, warm extremities. No edema. ? Abdominal: No focal tenderness. Soft, no objective distension. No palpable masses or obvious organomegaly. ?No guarding, no rebound tenderness or other peritoneal findings. : No flank tenderness. Neuro: Alert. Gross movement of all extremities intact. ? Psych: Calm. Cooperative. MSK: No grossly visible deformity. Vital signs: See flowsheet Vital Signs: Vital Signs: Last Vital Signs Temp 98.6 F 02/07/25 23:26 Pulse 56 02/07/25 23:26 Resp 17 02/07/25 23:26 BP 152/66 H 02/07/25 23:26 Pulse Ox 94 02/07/25 23:26 O2 Del Method Room Air 02/07/25 23:26 BMI result Body Mass Index 23.7 Course Reevaluation(s) Reevaluation #1: 20:54 initiation of physician observation for case management/PT , patient is felt to be unsafe at home. Frequent falls, lightheadedness of unclear significance or relevance to these episodes. He has frequent falls or much more likely to be related to chronic bilateral knee pain/osteoarthritis. Baseline ambulatory support with a walker Jimmy Schwarz, MD Medications Administered Generic Name Dose Route Start Last Admin Trade Name Ary PRN Reason Stop Dose Admin Acetaminophen 650 mg 02/06/25 09:01 02/07/25 09:31 Acetaminophen 325 Mg Tablet PO 650 mg Q6H PRN Administration Pain, Mild 1-3,fever,headache Amlodipine Besylate 5 mg 02/07/25 09:00 02/07/25 09:15 Amlodipine Besylate 5 Mg Tablet PO 5 mg DAILY GERMAIN Administration Protocol Ascorbic Acid 1,000 mg 02/07/25 09:00 02/07/25 09:14 Ascorbic Acid 500 Mg Tablet PO 1,000 mg DAILY GERMAIN Administration Clonazepam 1 mg 02/06/25 21:00 02/07/25 21:34 Clonazepam 1 Mg Tablet PO 1 mg BEDTIME GERMAIN Administration Clonazepam 0.5 mg 02/06/25 12:00 02/07/25 11:46 Clonazepam 0.5 Mg Tablet PO 0.5 mg BID@0900,1200 GERMAIN Administration Cyanocobalamin 1,000 mcg 02/07/25 09:00 02/07/25 09:15 Cyanocobalamin (Vitamin B-12) 1,000 Mcg Tablet PO 1,000 mcg DAILY GERMAIN Administration Docusate Sodium 100 mg 02/06/25 21:00 02/07/25 21:35 Docusate Sodium 100 Mg Capsule PO 100 mg BID GERMAIN Administration Furosemide 80 mg 02/07/25 09:10 02/07/25 09:51 Furosemide 40 Mg Tablet PO Not Given SUTUTHSA [facility] Protocol Heparin Sodium (Porcine) 5,000 unit 02/06/25 10:00 02/07/25 21:38 Heparin Sodium,Porcine 5,000 Unit/Ml Vial SUBCUT Not Given Q12H [facility]ERMAIN Lamotrigine 100 mg 02/07/25 09:00 02/07/25 09:14 Lamotrigine 100 Mg Tablet PO 100 mg DAILY GERMAIN Administration Lidocaine 1 patch 02/06/25 09:45 02/07/25 09:17 Lidocaine 4 % Patch Adh..Patch TRANSDERMA 1 patch DAILY GERMAIN Administration Protocol Lisinopril 20 mg 02/07/25 09:00 02/07/25 09:15 Lisinopril 20 Mg Tablet PO 20 mg DAILY GERMAIN Administration Protocol Metoprolol Succinate 25 mg 02/06/25 09:15 02/07/25 09:15 Metoprolol Succinate Er 25 Mg Tab.Er.24h PO 25 mg DAILY GERMAIN Administration Protocol Multivitamins/Vitamin C 1 tab 02/07/25 09:00 02/07/25 09:15 Multivitamin Tablet PO 1 tab DAILY GERMAIN Administration Oxcarbazepine 600 mg 02/06/25 21:00 02/07/25 21:35 Oxcarbazepine 300 Mg Tablet PO 600 mg BID GERMAIN Administration Prochlorperazine Maleate 5 mg 02/06/25 21:00 02/07/25 21:35 Prochlorperazine Maleate 5 Mg Tablet PO 5 mg BID GERMAIN Administration Ropinirole HCl 2 mg 02/06/25 21:00 02/07/25 21:34 Ropinirole Hcl 2 Mg Tablet PO 2 mg BEDTIME GERMAIN Administration Sodium Chloride 3 ml 02/06/25 16:00 02/07/25 21:36 0.9 % Sodium Chloride Flush 3 Ml Syringe IVFLUSH 3 ml QSHIFT GERMAIN Administration Sodium Polystyrene Sulfonate 15 gm 02/07/25 09:00 02/07/25 09:51 Sodium Polystyrene Sulfon/Sorb 15 Gm/60 Ml Oral.Susp G-TUBE Not Given SUTUTHSA [facility] Trazodone HCl 50 mg 02/06/25 21:00 02/07/25 21:35 Trazodone Hcl 50 Mg Tablet PO 50 mg BEDTIME GERMAIN Administration Procedures Procedure Narrative Procedure Narrative: EMERGENCY ULTRASOUND INTERPRETATION-Limited Echocardiography [This study was ordered, performed, and interpreted by myself. The study reveals: Impression: Reduced LV FUNCTION, NO RV DYSFUNCTION, NO PERICARDIAL EFFUSION] [Emergent Cardiac for Indication: Views Used: PLAX, PSSA, A4, SX, IVC Pericardial Effusion/Tamponade Findings: NONE RV Dilation (> LV diam in 4ch apical): NONE Global LV Fxn: Reduced IVC Dilation and Resp Variation: NORMAL Performed by: MD Karishma Images were stored CPT:40648] Medical Decision Making Medical Decision Making MDM Narrative: Medical Decision Makin-year-old male with chronic deconditioning, chronic recurrent falls with a recurrent episode today preceded by slight lightheadedness. He is chronically unsteady has no gross ataxia or focal motor deficits. Subjectively he feels this was slightly more attributed it to lightheadedness before the event as opposed to the knee instability from his chronic arthritis. He denies any significant pain or injuries from the fall and does not appear to be injured on examination. He does have a chronic pericardial effusion documented in previous history I will perform echo to exclude tamponade though I find this unlikely. His vitals are stable here. He has ambulated with walker to the bathroom and did not feel lightheaded we will get orthostatics. He was dialyzed yesterday in his electrolytes are non actionable. Expected creatinine. He is not encephalopathic ill or toxic looking. He does have a mild continued cough but no respiratory distress or increased work of breathing or focal crackles. He appears to have been completely treated with antibiotics for pneumonia. Preliminary Favored Differential Diagnosis: Chronic deconditioning, arthritis, orthostasis, pericardial effusion/symptomatic, dehydration, electrolyte derangement, dysrhythmia, heat stroke, among additional considered etiologies Testing Interpreted Independently: See my echo report Radiology or Lab testing Results Reviewed: Not Applicable Consults: Not Applicable Independent Historians/External Chart Reviews: Not Applicable Social Determinants of Health Impacting MDM/Planning: Not Applicable I was informed by the patient's nurse and charge nurse that the patient is scheduled for dialysis today. However, we can not do dialysis from the emergency department, patient needs to be admitted I discussed the patient with Dr. Darling from the Medicine team, patient being admitted Lab Data 02/07/25 05:39 02/07/25 05:39 Labs: Lab Results 02/05/25 Range/Units 14:58 WBC 5.1 (4.8-10.8) X10*3/uL RBC 2.84 L (4.60-5.80) X10*6/uL Hgb 9.3 L (14.0-18.0) g/dl Hct 26.7 L (42.0-52.0) % MCV 94.0 (80.0-98.0) fL MCH 32.7 (27.0-33.0) pg MCHC 34.8 (31.0-36.0) g/dl RDW 13.9 (11.0-16.0) % Plt Count 208 (160-400) X10*3/uL MPV 9.6 (9.4-12.4) fL Immature Gran % (Auto) 0.4 (0.0-0.4) % Neut % (Auto) 59.5 (45-73) % Lymph % (Auto) 22.7 (20-40) % [place] % (Auto) 11.5 H (2-11) % Eos % (Auto) 4.1 H (0-4) % Baso % (Auto) 1.8 (0-2) % Lymph # (Auto) 1.2 (1.2-4.9) X10*3/uL [place] # (Auto) 0.6 (0.1-1.2) X10*3/uL Eos # (Auto) 0.2 (0.0-0.4) X10*3/uL Baso # (Auto) 0.1 (0.0-0.2) X10*3/uL Abs Immat Gran (auto) 0.02 (0.00-0.03) X10*3/uL Absolute Neuts (auto) 3.0 (2.0-8.3) x10*3/uL Absolute Nucleated RBC 0.000 (0.0-0.012) X10*3/uL Nucleated RBC % (auto) 0.0 (0.0-0.2) /100WBC Sodium 138 (135-145) mmol/L Potassium 4.1 (3.3-5.1) mmol/L Chloride 96 (96-108) mmol/L Carbon Dioxide 31 H (22-29) mmol/L Anion Gap 15 (12-20) BUN 40 H (9-16) mg/dL Creatinine 5.36 H* (0.5-1.4) mg/dL Estim Creat Clear Calc 12.2 Estimated GFR 10 Random Glucose 96 (60-115) mg/dL Calcium 8.4 (8.4-10.2) mg/dL Magnesium 2.2 (1.6-2.6) mg/dL Total Bilirubin 0.3 (0.0-1.0) mg/dL AST 22 (5-37) U/L ALT 12 (0-40) U/L Alkaline Phosphatase 68 (39-117) U/L Troponin I High Sens 28.5 D (<3.5-35.0) ng/L Total Protein 5.6 L (6.5-8.0) g/dL Albumin 3.7 (3.5-5.0) g/dL Critical Care Time Critical Care Time Critical Care Time: Yes Total Critical Care Time: 35 Attestation: I have personally provided critical care time. Time includes review of lab data, radiology results, discussion with consultants, and monitoring for potential decompensation. Intervention performed as documented. Discharge Plan Discharge Clinical Impression: Dialysis patient Patient Disposition: Admitted As Inpatient Interventions: Admission Worksheet (ED) Last Done: 02/06/25 15:59 Discharge Date/Time: 02/06/25 17:06
[2025-02-05 19:26] VITALS: BP 157/70; PULSE 56; RESP 16; TEMP 36.4; O2SAT 99
[2025-02-05 19:54] VITALS: BP 146/66; BP 149/65; BP 161/72; PULSE 56; PULSE 59
--- NOTE | 2025-02-05 21:21 | MHC.CM.ED ---
CM met with patient. Pt states he was discharged from [facility] and he was not ready for discharge. States they told him he would have to pay $500/day to continue with his care. Pt Has HNE and Medicare is secondary. Pt lives alone. He lives alone. Sometimes stays with his ex-/HCP Lenora May ([phone]). He uses a walker. PCP , address and insurance verified. Was admitted to [facility] from 01/07-01/10 and discharged to [facility]. He receives dialysis at [id number]. He was discharged from [facility] on 02/03. Pt states he was at [facility] twice. 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 Again states he cannot go home, was discharge too soon from rehab and need to return. CM explained that [employer] must approve his STR and that they do not pay for extended periods of time indefinitely. CM explained that if patients cannot safely live at home, then sometimes LTC must be considered if there isn't family to help. Pt tells CM he has Social security, disability and a pension. Plan moving forward: PT evalution, referrals, speak with Lloyd Frost liason in the morning regarding insurance issues. Patient does not have a payor source for LTC.
[2025-02-05 22:00] VITALS: BP 153/65; PULSE 55; RESP 16; TEMP 36.4; O2SAT 97
[2025-02-06 05:43] VITALS: BP 155/61; PULSE 63; RESP 16; TEMP 36.7; O2SAT 97
--- NOTE | 2025-02-06 07:17 | PC.NURSE ---
This RN assumed care of patient @ 0700. Patient presents to ED for dizziness and low fall. Patient denies SOB, dizziness at this time. Patient able to ambulate 1 assist with walker to bathroom and back no dizziness or unsteady gait noted. Patient is dialysis patient fistula in left arm (No BP in left sign posted). Patient slightly hypertensive but all other VSS. Patient wants to go to rehab but insurance may not cover stay. Patient currently awaiting PT/CM.
[2025-02-06 07:54] VITALS: PULSE 88; O2SAT 90
--- NOTE | 2025-02-06 08:19 | PHA.MEDREC ---
Pharmacy Consult ? Medication Reconciliation Pharmacy has completed the medication reconciliation. Spoke with patient at bedside, he had a short list that included some things not on pharmacy claims. The list had a different dose for Oxcarbazepine, but he said if there is a more recent fill to use that. It was recently filled for 600mg BID x 90 days in December, so I confirmed that dose.
--- NOTE | 2025-02-06 08:26 | PM.IMHP ---
History of Present Illness Date of Service: 02/06/25 Chief Complaint: Deconditioning, ESRD 74 year old male with PMH ESRD on dialysis, HFrEF of 45-50%, HTN, atrial flutter not on anticoagulation, RYAN on CPAP, hyperlipidemia, depression and bipolar disorder, anxiety Chronic bilateral knee pain and osteoarthritis presented to the ED after a fall at home. She was initially brought to the hospital after he was found on the ground by his ex- whom he lives with. He was discharged to [facility] for rehab on 01/10/2025 and discharged home Tuesday02/03/2025, he sustained another fall on Tuesday02/04/2025, and was unable to get up and EMS was called he was brought back here for deconditioning and weakness, failure to thrive at home. On admission his workup was unremarkable. He was recently treated for suspected pneumonia with 14 days of antibiotics at rehab. He reports bilateral knee pain, arthitis, and weakness. He is seen by [facility] and most recent appointment which he was due to have cortisone injections was canceled due to him being in the hospital. Patient is being followed at home by branch specialist who visits him regularly. His electrolytes were without derangement. He does not appear ill. He will be admitted for dialysis treatment and case management. Review of Systems Review of Systems: Denies any shortness of breath, chest pain, lightheadedness, abdominal pain or discomfort, nausea vomiting or diarrhea. Reports occasional dizziness, none at present [facility] Medical History ESRD (end stage renal disease) on dialysis CRF (chronic renal failure) Anemia ESRD (end stage renal disease) CKD (chronic kidney disease) Hypoxia Atrial flutter Nicotine dependence, cigarettes, uncomplicated AV fistula Essential hypertension Mood disorder Effusion, pericardium Pleural effusion, left Chronic kidney 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 Surgical History History of colonoscopy History of hernia repair History of parathyroidectomy Social History Household Members: None Housing: House Do you presently have visiting nurse or other home services: Yes ([facility]) Alcohol intake: former Comment: patient refuses bed alarm, and refuses to wear non-skid red socks Patient Tobacco Use Status: Former Tobacco user Tobacco use type: Cigarette Cigarette Packs Per Day: 0.5 Cigarettes Per Day: 10.0 Years Smoked: 60 +/- Smoked in Last 30 Days: No e-Cigarette/Vaping Use: Currently Using Second Hand Smoke Exposure: Yes Use of substances other than those prescribed or required for medical reasons: No Advance Directives: Yes Advance Directives on File: Yes Advance Directives Date on File: 03/01/23 service: No Meds Allergies Allergy/AdvReac Type Severity Reaction Status Date / Time bupropion (From WELLBUTRIN) AdvReac Unknown CONSTIPATIO Verified 02/05/25 14:44 N NSAIDS (Non-Steroidal AdvReac Unknown RENAL Verified 02/05/25 14:44 Anti-Inflamma (NSAIDS (NON-STEROIDAL ANTI-INFLAMMA) [id number]-UVH-GpW Reductase AdvReac Unknown UNK Verified 02/05/25 14:44 Inhibitor (QBTSEGS-RZK-ROX REDUCTASE INHIBITOR) Home Medications ?Medication ?Instructions ?Recorded ?Confirmed ?Last Taken ?Type ascorbic acid (vitamin C) 500 mg 1,000 mg PO DAILY 02/28/23 02/06/25 02/04/25 History tablet clonazepam 1 mg tablet 0.5 mg PO BID@0900,1200 02/28/23 02/06/25 02/04/25 History cyanocobalamin (vitamin B-12) 1,000 mcg PO DAILY 02/28/23 02/06/25 02/04/25 History 1,000 mcg tablet furosemide 80 mg tablet 80 mg PO SUTUTHSA 02/28/23 02/06/25 02/04/25 History prochlorperazine maleate 5 mg 5 mg PO BID 02/28/23 02/06/25 02/04/25 History tablet albuterol sulfate 90 mcg/actuation 2 puff inhalation Q6H PRN 08/01/23 02/06/25 02/04/25 History aerosol inhaler (Ventolin HFA) Shortness Of Breath Or Wheezing vitamin B complex 1 tab PO DAILY 08/01/23 02/06/25 02/04/25 History lamotrigine 100 mg tablet 100 mg PO DAILY 04/04/24 02/06/25 02/04/25 History (Lamictal) meclizine 25 mg tablet 25 mg PO BID PRN dizziness 04/04/24 02/06/25 02/04/25 History sodium polystyrene sulfonate 15 g PO SUTUTHSA 07/03/24 02/06/25 02/04/25 History trazodone 50 mg tablet 50 mg PO BEDTIME insomnia 07/03/24 02/06/25 02/04/25 History clonazepam 1 mg tablet 1 mg PO BEDTIME 01/06/25 02/06/25 02/04/25 History ropinirole 2 mg tablet 2 mg PO BEDTIME 01/06/25 02/06/25 02/04/25 History acetaminophen 325 mg tablet 325 mg PO QID PRN Pain, Mild 02/06/25 02/06/25 02/04/25 History amlodipine 5 mg tablet 5 mg PO DAILY 02/06/25 02/06/25 02/04/25 History lidocaine 4 % topical patch 1 patch topical DAILY PRN Pain 02/06/25 02/06/25 02/04/25 History oxcarbazepine 600 mg tablet 600 mg PO BID 02/06/25 02/06/25 02/04/25 History Physical Exam Vital Signs and Narrative: Vital Signs: Last Vital Signs Temp 98.1 F 02/06/25 05:43 Pulse 88 02/06/25 07:54 Resp 16 02/06/25 05:43 BP 155/61 H 02/06/25 05:43 Pulse Ox 90 L 02/06/25 07:54 O2 Del Method Room Air 02/06/25 05:43 BMI result Body Mass Index 23.7 General: AOx3, no acute distress. Appears depressed Resp: Lungs are clear bilaterally, no wheezing, no rales, no rhonchi. CVS: S1, S2, RRR GI: +BS, NT, ND. Skin: Warm, dry Neuro: Cranial nerves II-XII grossly intact bilaterally. Motor grossly intact bilaterally Extremities: No LE edema, calves soft Psych: Quiet and cooperative, appears depressed Results Labs 02/05/25 14:58 02/05/25 14:58 Labs: Laboratory Results - last 24 hr 02/05/25 14:58 MCV 94.0 MCH 32.7 MCHC 34.8 RDW 13.9 Plt Count 208 MPV 9.6 Immature Gran % (Auto) 0.4 Neut % (Auto) 59.5 Lymph % (Auto) 22.7 [place] % (Auto) 11.5 H Eos % (Auto) 4.1 H Baso % (Auto) 1.8 Lymph # (Auto) 1.2 [place] # (Auto) 0.6 Eos # (Auto) 0.2 Baso # (Auto) 0.1 Abs Immat Gran (auto) 0.02 Absolute Neuts (auto) 3.0 Absolute Nucleated RBC 0.000 Nucleated RBC % (auto) 0.0 Anion Gap 15 Estim Creat Clear Calc 12.2 Estimated GFR 10 Random Glucose 96 Calcium 8.4 Magnesium 2.2 Total Bilirubin 0.3 AST 22 ALT 12 Alkaline Phosphatase 68 Total Protein 5.6 L Albumin 3.7 Assessment and Plan (1) ESRD (end stage renal disease) on dialysis: Status: Acute (2) Recurrent falls: Status: Acute Plan 74-year-old male with multiple chronic medical conditions including end-stage renal disease requiring hemodialysis, cardiomyopathy, hypertension, mild cognitive impairment, bipolar disorder, depression and anxiety, COPD, hyperlipidemia, hypertension, severe osteoarthritis of knees, RYAN on CPAP who is requiring admission for hemodialysis and placement due to failure to thrive at home and frequent falls. End-stage renal disease on dialysis Patient is dialyzed every Tuesday in [facility] consulted for management Patient is followed by branch specialist Maribeth who visits him regularly at home. Bilateral knee pain/frequent fall/failure to thrive at home. Patient receives cortisone injections administered by meals every 3 months. Missed last appointment due to hospitalization Patient has an upcoming appointment for genicular artery embolization evaluation to help with his knee pain, it is scheduled for 02/08/2025 It is likely that he will miss this appointment. Pain management with tramadol, tylenol and diclofenac gel per home regime. Case management for safe disposition Hypertension/Cardiomyopathy/HFrEF/Aflutter Manage with lisinopril, Lasix. Rate controlled with metoprolol Not on NOAC due to frequent falls Appears Euvolemic Followed by Dr. Bowden Cardiology regularly Depression/anxiety/history of bipolar disorder/MCI Continue trazodone, continue Lamictal, continue clonazepam Recent MOCA score 21/30 indicating MCI CODE status: DNR/DNI, no artificial nutrition. DVT Prophylaxis: Heparin BID Quality Stroke Does the patient have a stroke diagnosis?: No VTE Prior VTE?: No VTE Risk Level:: Medical - moderate - high VTE Device Contraindication: Treatment Not Indicated VTE Drug Contraindication: N/A - Med Ordered
[2025-02-06 09:47] VITALS: BP 153/63; PULSE 60
[2025-02-06] MEDS: Metoprolol Succinate ER 25 MG TAB.ER.24H PO (09:47)
--- NOTE | 2025-02-06 10:50 | MHC.CM.PN ---
Susana 02/06/25, Pt. lives alone, was recently in hosp. and then STR at [facility], he then was DC'd to his ex-'s home. He has [facility] there. He fell, and was sent back to ED. CM spoke with his HCP / exwife Lenora, she has arranged for him to live at [facility] in an apt. there which is handicapped accessible and will be better for him. At this time, she would like him to have more STR and be evaluated for dizzyness, and eval for pneumonia which he recently had. These concerns passed onto provider. Referral made to [facility] STR. Lenora asked not to refer to [facility]. CM to follow for DC needs.
[2025-02-06] MEDS: Lidocaine 4 % Patch ADH..PATCH 1 PATCH TRANSDERMA (11:07)
--- NOTE | 2025-02-06 11:11 | PC.NURSE ---
Pt off unit at dialysis.
--- NOTE | 2025-02-06 11:41 | PM.EVENT ---
Event Note Date of Service: 02/06/25 Event Note: Chest x-ray ordered for resolution of pneumonia, patient was seen by PT, we will check orthostatic blood pressures, patient has meclizine ordered at baseline for chronic dizziness. Time Spent With Patient Time: Total time managing care of this patient today ____ minutes.
--- NOTE | 2025-02-06 15:46 | PC.NURSE ---
Pt arrived back to ED overflow from Dialysis. Medicated per MAR for overdue medications d/t pt off unit. Pt a/ox3, respirations even and unlabored, no increased wob/sob noted, appears in no distress. Pt up oob in recliner- resting with eyes closed. Call perez within reach, all needs met at this time.
[2025-02-06] MEDS: 0.9 % Sodium Chloride Flush 3 ML SYRINGE IVFLUSH ×2 (16:23→20:51)
[2025-02-06 17:02] VITALS: BP 157/57; PULSE 57
[2025-02-06 17:03] VITALS: BP 123/61; BP 142/65; BP 147/62; PULSE 57; PULSE 59; PULSE 64; RESP 16; RESP 18; TEMP 36.9; TEMP 37; O2SAT 98; O2SAT 99
[2025-02-06 17:05] VITALS: BMI 20.9
--- NOTE | 2025-02-06 17:35 | PC.NURSE ---
Patient arrived to unit, pleasant but seems slightly bothered by questions and care. Patient refused changing out of clothing and into hospital gown, asked multiple times, patient educated to inform staff if he wants to change. Patient refused skin assessment but reports no issues with skin at this time. Patient educated on fall risk and bed alarm, chair alarm and call perez. Walker provided. Patient seems compliant but frustrated to have to ask for staff for assistance to the bathroom. Patient refused orthostatic vital signs at this time. Patient asking about daily medications, patient educated on medications that are ordered, patient asked if he can have them sooner but reports he will wait until scheduled time. Patient currently up in chair, chair alarm on, call perez in reach.
[2025-02-06 19:23] VITALS: BP 136/63; PULSE 57; RESP 16; TEMP 37.1; O2SAT 96
[2025-02-07] VITALS (10 sets, daily range): BP systolic 149–171; BP diastolic 66–79; PULSE 56–70; RESP 16–18; TEMP 36.4–37; O2SAT 94–99
--- NOTE | 2025-02-07 00:05 | PM.CNNEP ---
History of Present Illness Reason for Consult Consult date: 02/06/25 Reason for consult: EESRD and HD management Chief Complaint Chief complaint: ESRD History of Present Illness Narrative: RTANE consulted for management of ESRD Recurrent falling episodes and incr gen weakness Review of Systems Review of Systems Denies any shortness of breath, chest pain, lightheadedness, abdominal pain or discomfort, nausea vomiting or diarrhea. Reports occasional dizziness, none at present PMFSH Past Medical History Medical History ESRD (end stage renal disease) on dialysis CRF (chronic renal failure) Anemia ESRD (end stage renal disease) CKD (chronic kidney disease) Hypoxia Atrial flutter Nicotine dependence, cigarettes, uncomplicated AV fistula Essential hypertension Mood disorder Effusion, pericardium Pleural effusion, left Chronic kidney 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 Surgical History Surgical History History of colonoscopy History of hernia repair History of parathyroidectomy Social History Social History Household Members: None Housing: Apartment Housing Other:: pt reports transitioning to assisted living Do you presently have visiting nurse or other home services: No (patient reports having it in the past) Alcohol intake: former Comment: patient refuses bed alarm, and refuses to wear non-skid red socks Patient Tobacco Use Status: Former Tobacco user Tobacco use type: Cigarette Cigarette Packs Per Day: 0.5 Cigarettes Per Day: 10.0 Years Smoked: 60 +/- e-Cigarette/Vaping Use: Currently Using Second Hand Smoke Exposure: Yes Advance Directives Date on File: 03/01/23 service: No Meds Allergies Allergy/AdvReac Type Severity Reaction Status Date / Time bupropion (From WELLBUTRIN) AdvReac Unknown CONSTIPATIO Verified 02/05/25 14:44 N NSAIDS (Non-Steroidal AdvReac Unknown RENAL Verified 02/05/25 14:44 Anti-Inflamma (NSAIDS (NON-STEROIDAL ANTI-INFLAMMA) [id number] Reductase AdvReac Unknown UNK Verified 02/05/25 14:44 Inhibitor ([id number] REDUCTASE INHIBITOR) Active Medications: Current Medications Acetaminophen (Acetaminophen 325 Mg Tablet) 650 mg PO Q6H PRN PRN Reason: Pain, Mild 1-3,fever,headache Albuterol Sulfate (Albuterol Sulfate 90 Mcg 8 Gm Inhaler) 2 puff INHALE RQ6H PRN PRN Reason: Shortness Of Breath Or Wheezing Amlodipine Besylate (Amlodipine Besylate 5 Mg Tablet) 5 mg PO DAILY REPLACED BY [facility]; Protocol Ascorbic Acid (Ascorbic Acid 500 Mg Tablet) 1,000 mg PO DAILY REPLACED BY [facility] Calcium Carbonate (Calcium Carbonate 750 Mg Tab.Chew) 750 mg PO Q4H PRN PRN Reason: Heartburn Clonazepam (Clonazepam 1 Mg Tablet) 1 mg PO BEDTIME REPLACED BY [facility] Last Admin: 02/06/25 20:51 Dose: 1 mg Clonazepam (Clonazepam 0.5 Mg Tablet) 0.5 mg PO BID@0900,1200 REPLACED BY [facility] Last Admin: 02/06/25 15:46 Dose: 0.5 mg Cyanocobalamin (Cyanocobalamin (Vitamin B-12) 1,000 Mcg Tablet) 1,000 mcg PO DAILY REPLACED BY [facility] Docusate Sodium (Docusate Sodium 100 Mg Capsule) 100 mg PO BID REPLACED BY [facility] Last Admin: 02/06/25 20:55 Dose: Not Given Furosemide (Furosemide 40 Mg Tablet) 80 mg PO SUTUTHSA REPLACED BY [facility]; Protocol Heparin Sodium (Porcine) (Heparin Sodium,Porcine 5,000 Unit/Ml Vial) 5,000 unit SUBCUT Q12H REPLACED BY [facility] Last Admin: 02/06/25 21:15 Dose: Not Given Lamotrigine (Lamotrigine 100 Mg Tablet) 100 mg PO DAILY REPLACED BY [facility] Lidocaine (Lidocaine 4 % Patch Adh..Patch) 1 patch TRANSDERMA DAILY REPLACED BY [facility]; Protocol Last Admin: 02/06/25 11:07 Dose: 1 patch Lisinopril (Lisinopril 20 Mg Tablet) 20 mg PO DAILY REPLACED BY [facility]; Protocol Meclizine HCl (Meclizine Hcl 25 Mg Tablet) 25 mg PO BID PRN PRN Reason: dizziness Melatonin (Melatonin 3 Mg Tablet) 6 mg PO BEDTIME PRN PRN Reason: Insomnia Metoprolol Succinate (Metoprolol Succinate Er 25 Mg Tab.Er.24h) 25 mg PO DAILY REPLACED BY [facility]; Protocol Last Admin: 02/06/25 09:47 Dose: 25 mg Multivitamins/Vitamin C (Multivitamin Tablet) 1 tab PO DAILY REPLACED BY [facility] Oxcarbazepine (Oxcarbazepine 300 Mg Tablet) 600 mg PO BID REPLACED BY [facility] Last Admin: 02/06/25 20:51 Dose: 600 mg Prochlorperazine Maleate (Prochlorperazine Maleate 5 Mg Tablet) 5 mg PO BID REPLACED BY [facility] Last Admin: 02/06/25 20:51 Dose: 5 mg Ropinirole HCl (Ropinirole Hcl 2 Mg Tablet) 2 mg PO BEDTIME REPLACED BY [facility] Last Admin: 02/06/25 20:51 Dose: 2 mg Sodium Chloride (0.9 % Sodium Chloride Flush 3 Ml Syringe) 3 ml IVFLUSH QSHIFT REPLACED BY [facility] Last Admin: 02/06/25 20:51 Dose: 3 ml Sodium Polystyrene Sulfonate (Sodium Polystyrene Sulfon/Sorb 15 Gm/60 Ml Oral.Susp) 15 gm [facility] Tramadol HCl (Tramadol Hcl 50 Mg Tablet) 25 mg PO Q6H PRN PRN Reason: Pain, Severe (Pain Scale 7-10) Trazodone HCl (Trazodone Hcl 50 Mg Tablet) 50 mg PO BEDTIME REPLACED BY [facility] Last Admin: 02/06/25 20:51 Dose: 50 mg Home Medications ?Medication ?Instructions ?Recorded ?Confirmed ?Last Taken ?Type ascorbic acid (vitamin C) 500 mg 1,000 mg PO DAILY 02/28/23 02/06/25 02/04/25 History tablet clonazepam 1 mg tablet 0.5 mg PO BID@0900,1200 02/28/23 02/06/25 02/04/25 History cyanocobalamin (vitamin B-12) 1,000 mcg PO DAILY 02/28/23 02/06/25 02/04/25 History 1,000 mcg tablet furosemide 80 mg tablet 80 mg PO [facility] 02/28/23 02/06/25 02/04/25 History prochlorperazine maleate 5 mg 5 mg PO BID 02/28/23 02/06/25 02/04/25 History tablet albuterol sulfate 90 mcg/actuation 2 puff inhalation Q6H PRN 08/01/23 02/06/25 02/04/25 History aerosol inhaler (Ventolin HFA) Shortness Of Breath Or Wheezing vitamin B complex 1 tab PO DAILY 08/01/23 02/06/25 02/04/25 History lamotrigine 100 mg tablet 100 mg PO DAILY 04/04/24 02/06/25 02/04/25 History (Lamictal) meclizine 25 mg tablet 25 mg PO BID PRN dizziness 04/04/24 02/06/25 02/04/25 History sodium polystyrene sulfonate 15 g PO SUTUTHSA 07/03/24 02/06/25 02/04/25 History trazodone 50 mg tablet 50 mg PO BEDTIME insomnia 07/03/24 02/06/25 02/04/25 History clonazepam 1 mg tablet 1 mg PO BEDTIME 01/06/25 02/06/25 02/04/25 History ropinirole 2 mg tablet 2 mg PO BEDTIME 01/06/25 02/06/25 02/04/25 History acetaminophen 325 mg tablet 325 mg PO QID PRN Pain, Mild 02/06/25 02/06/25 02/04/25 History amlodipine 5 mg tablet 5 mg PO DAILY 02/06/25 02/06/25 02/04/25 History lidocaine 4 % topical patch 1 patch topical DAILY PRN Pain 02/06/25 02/06/25 02/04/25 History oxcarbazepine 600 mg tablet 600 mg PO BID 02/06/25 02/06/25 02/04/25 History Physical Exam Vital Signs: Last Vital Signs Temp 98.8 F 02/06/25 19:23 Pulse 57 02/06/25 19:23 Resp 16 02/06/25 19:23 BP 136/63 02/06/25 19:23 Pulse Ox 96 02/06/25 19:23 O2 Del Method Room Air 02/06/25 19:23 BMI result Body Mass Index 20.9 Results Lab Results 02/05/25 14:58 02/05/25 14:58 Lab results: Chemistry 02/05/25 14:58 Sodium 138 Potassium 4.1 Carbon Dioxide 31 H BUN 40 H Creatinine 5.36 H* Calcium 8.4 Hematology 02/05/25 14:58 WBC 5.1 Hgb 9.3 L Plt Count 208 Assessment and Plan (1) ESRD (end stage renal disease) on dialysis: Status: Acute (2) Recurrent falls: Status: Acute Plan 74-year-old male with multiple chronic medical conditions including end-stage renal disease requiring hemodialysis, cardiomyopathy, hypertension, mild cognitive impairment, bipolar disorder, depression and anxiety, COPD, hyperlipidemia, hypertension, severe osteoarthritis of knees, RYAN on CPAP who is requiring admission for hemodialysis and placement due to failure to thrive at home and frequent falls. 1. ESRD: [facility]u HD MWF at [facility] 2. Falling epsiodes: multifact and getting eval 3. 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 MBD of CKD REC: HD today and cont MWF; cont routine meds Will follow w team Procedures Date of Service Date of Service: 02/07/25
[2025-02-07 06:27] LABS: MANUAL DIFF FLAG NO
[2025-02-07 06:33] LABS: Hematocrit 29.1 % (42.0-52.0); Hemoglobin 9.7 g/dl (14.0-18.0); Imm Gran Abs Auto 0.01 X10*3/uL (0.00-0.03); Imm Gran Pct Auto 0.2 % (0.0-0.4); Lymphocytes Absolute Auto 1.0 X10*3/uL (1.2-4.9); Mean Corpuscular HGB Conc 33.3 g/dl (31.0-36.0); Mean Corpuscular Hemoglobin 31.4 pg (27.0-33.0); Mean Corpuscular Volume 94.2 fL (80.0-98.0); NRBC Abs Auto 0.000 X10*3/uL (0.0-0.012); NRBC Pct Auto 0.0 /100WBC (0.0-0.2); Platelet Count 215 X10*3/uL (160-400); Red Blood Count 3.09 X10*6/uL (4.60-5.80); White Blood Count 5.3 X10*3/uL (4.8-10.8)
[2025-02-07 06:52] LABS: Anion Gap 13 (12-20); Blood Urea Nitrogen 25 mg/dL (9-16); Calcium 8.2 mg/dL (8.4-10.2); Carbon Dioxide 33 mmol/L (22-29); Chloride 98 mmol/L (96-108); Creatinine Clr Calc Pharmacy 13.4; Estimated Glomerular Filt Rate 13; Potassium 3.3 mmol/L (3.3-5.1); Sodium 141 mmol/L (135-145)
[2025-02-07] MEDS: Metoprolol Succinate ER 25 MG TAB.ER.24H PO (09:15)
[2025-02-07] MEDS: Lidocaine 4 % Patch ADH..PATCH 1 PATCH TRANSDERMA (09:17)
--- NOTE | 2025-02-07 13:29 | MHC.CM.PN ---
Addendum entered by Shima Mahoney RN 02/07/25 14:39: Patient also expecting $11k refund from [facility]. [place] income includes : $2500/month ss, $600/month pension Addendum entered by Shima Mahoney RN 02/07/25 13:34: Also, per patient and ex patient has $8600 in savings. ? Eventual LTC, referral sent to [facility] to begin [facility]. They are aware a spend down would be required. Original Note: PT rec STR. Per MD, likely ready tomorrow. SNF referral updated and expanded. Currently OBS but had [facility] 01/06-01/10, [facility] 01/10-02/02. No bed offers at this time. Per patient and Lenora, [facility] is not able to accommodate patient as previously planned. Awaiting bed offer w/ HD. CM will continue to follow.
--- NOTE | 2025-02-07 13:56 | HO.PM.IMPN ---
Subjective Subjective Date of Service: 02/07/25 Interval History: No acute issues overnight. PT notes reviewed Review of Systems Denies any shortness of breath, chest pain, lightheadedness, abdominal pain or discomfort, nausea vomiting or diarrhea. Reports occasional dizziness, none at present Physical Exam Vital Signs: Vital Signs: Last Vital Signs Temp 98.3 F 02/07/25 08:00 Pulse 65 02/07/25 11:54 Resp 17 02/07/25 08:00 BP 156/70 H 02/07/25 11:54 Pulse Ox 99 02/07/25 08:00 O2 Del Method Room Air 02/07/25 08:00 BMI result Body Mass Index 20.9 Const: Other: Awake alert no acute distress Resp: Other: Clear to auscultation bilaterally no rales rhonchi or wheezes Cardio: Other: No S4; positive S1-S2; no S3 murmurs rubs or gallops GI: Other: Soft nontender nondistended normoactive bowel sounds Extrem: Other: No edema bilaterally Objective Data Active Medications Acetaminophen (Acetaminophen 325 Mg Tablet) 650 mg PO Q6H PRN PRN Reason: Pain, Mild 1-3,fever,headache Last Admin: 02/07/25 09:31 Dose: 650 mg Documented By: MYLES Albuterol Sulfate (Albuterol Sulfate 90 Mcg 8 Gm Inhaler) 2 puff INHALE RQ6H PRN PRN Reason: Shortness Of Breath Or Wheezing Amlodipine Besylate (Amlodipine Besylate 5 Mg Tablet) 5 mg PO DAILY [facility]; Protocol Last Admin: 02/07/25 09:15 Dose: 5 mg Documented By: MYLES Ascorbic Acid (Ascorbic Acid 500 Mg Tablet) 1,000 mg PO DAILY [facility] Last Admin: 02/07/25 09:14 Dose: 1,000 mg Documented By: MYLES Calcium Carbonate (Calcium Carbonate 750 Mg Tab.Chew) 750 mg PO Q4H PRN PRN Reason: Heartburn Clonazepam (Clonazepam 1 Mg Tablet) 1 mg PO BEDTIME [facility] Last Admin: 02/06/25 20:51 Dose: 1 mg Documented By: DANIKA Clonazepam (Clonazepam 0.5 Mg Tablet) 0.5 mg PO BID@0900,1200 [facility] Last Admin: 02/07/25 11:46 Dose: 0.5 mg Documented By: MYLES Cyanocobalamin (Cyanocobalamin (Vitamin B-12) 1,000 Mcg Tablet) 1,000 mcg PO DAILY [facility] Last Admin: 02/07/25 09:15 Dose: 1,000 mcg Documented By: MYLES Docusate Sodium (Docusate Sodium 100 Mg Capsule) 100 mg PO BID [facility] Last Admin: 02/07/25 09:18 Dose: Not Given Documented By: MYLES Non-Admin Reason: Patient Refused Furosemide (Furosemide 40 Mg Tablet) 80 mg PO SUTUTHSA [facility]; Protocol Last Admin: 02/07/25 09:51 Dose: Not Given Documented By: MYLES Non-Admin Reason: Physician Held Med Heparin Sodium (Porcine) (Heparin Sodium,Porcine 5,000 Unit/Ml Vial) 5,000 unit SUBCUT Q12H [facility] Last Admin: 02/07/25 09:16 Dose: Not Given Documented By: MYLES Non-Admin Reason: Patient Refused Lamotrigine (Lamotrigine 100 Mg Tablet) 100 mg PO DAILY [facility] Last Admin: 02/07/25 09:14 Dose: 100 mg Documented By: MYLES Lidocaine (Lidocaine 4 % Patch Adh..Patch) 1 patch TRANSDERMA DAILY [facility]; Protocol Last Admin: 02/07/25 09:17 Dose: 1 patch Documented By: MYLES Lidocaine (Lidocaine 4 % Patch Adh..Patch) 1 patch TRANSDERMA DAILY [facility]; Protocol Lisinopril (Lisinopril 20 Mg Tablet) 20 mg PO DAILY [facility]; Protocol Last Admin: 02/07/25 09:15 Dose: 20 mg Documented By: MYLES Meclizine HCl (Meclizine Hcl 25 Mg Tablet) 25 mg PO BID PRN PRN Reason: dizziness Melatonin (Melatonin 3 Mg Tablet) 6 mg PO BEDTIME PRN PRN Reason: Insomnia Metoprolol Succinate (Metoprolol Succinate Er 25 Mg Tab.Er.24h) 25 mg PO DAILY [facility]; Protocol Last Admin: 02/07/25 09:15 Dose: 25 mg Documented By: MYLES Multivitamins/Vitamin C (Multivitamin Tablet) 1 tab PO DAILY [facility] Last Admin: 02/07/25 09:15 Dose: 1 tab Documented By: MYLES Oxcarbazepine (Oxcarbazepine 300 Mg Tablet) 600 mg PO BID [facility] Last Admin: 02/07/25 09:15 Dose: 600 mg Documented By: MYLES Prochlorperazine Maleate (Prochlorperazine Maleate 5 Mg Tablet) 5 mg PO BID [facility] Last Admin: 02/07/25 09:15 Dose: 5 mg Documented By: MYLES Ropinirole HCl (Ropinirole Hcl 2 Mg Tablet) 2 mg PO BEDTIME [facility] Last Admin: 02/06/25 20:51 Dose: 2 mg Documented By: DANIKA Sodium Chloride (0.9 % Sodium Chloride Flush 3 Ml Syringe) 3 ml IVFLUSH QSHIFT [facility] Last Admin: 02/07/25 09:26 Dose: Not Given Documented By: MYLES Non-Admin Reason: Previously Administered Sodium Polystyrene Sulfonate (Sodium Polystyrene Sulfon/Sorb 15 Gm/60 Ml Oral.Susp) 15 gm G-TUBE SUTUTHSA [facility] Last Admin: 02/07/25 09:51 Dose: Not Given Documented By: MYLES Non-Admin Reason: Physician Held Med Tramadol HCl (Tramadol Hcl 50 Mg Tablet) 25 mg PO Q6H PRN PRN Reason: Pain, Severe (Pain Scale 7-10) Trazodone HCl (Trazodone Hcl 50 Mg Tablet) 50 mg PO BEDTIME [facility] Last Admin: 02/06/25 20:51 Dose: 50 mg Documented By: DANIKA Labs 02/07/25 05:39 02/07/25 05:39 Labs: Laboratory Results - last 24 hr 02/07/25 05:39 MCV 94.2 MCH 31.4 MCHC 33.3 RDW 13.9 Plt Count 215 MPV 9.8 Immature Gran % (Auto) 0.2 Neut % (Auto) 64.5 Lymph % (Auto) 18.4 L Kaufman % (Auto) 10.9 Eos % (Auto) 4.9 H Baso % (Auto) 1.1 Lymph # (Auto) 1.0 L Kaufman # (Auto) 0.6 Eos # (Auto) 0.3 Baso # (Auto) 0.1 Abs Immat Gran (auto) 0.01 Absolute Neuts (auto) 3.4 Absolute Nucleated RBC 0.000 Nucleated RBC % (auto) 0.0 Anion Gap 13 Estim Creat Clear Calc 13.4 Estimated GFR 13 Random Glucose 87 Calcium 8.2 L Assessment and Plan (1) ESRD (end stage renal disease) on dialysis: Status: Acute (2) Essential hypertension: Status: Acute Plan 74-year-old male with multiple chronic medical conditions including end-stage renal disease requiring hemodialysis, cardiomyopathy, hypertension, mild cognitive impairment, bipolar disorder, depression and anxiety, COPD, hyperlipidemia, hypertension, severe osteoarthritis of knees, RYAN on CPAP who is requiring admission for hemodialysis and placement due to failure to thrive at home and frequent falls. 1.End-stage renal disease on dialysis -HD Tuesday in [place] -nephrology following 2.Hypertension/Cardiomyopathy/HFrEF/Aflutter -stable and well compensated -no anticoagulation secondary to increased fall risk DNR/DNI, no artificial nutrition. Heparin BID Requires ongoing hospitalization pending safe placement Quality Stroke Does the patient have a stroke diagnosis?: No VTE Prior VTE?: No VTE Risk Level:: Medical - moderate - high VTE Device Contraindication: Treatment Not Indicated VTE Drug Contraindication: N/A - Med Ordered
[2025-02-07] MEDS: 0.9 % Sodium Chloride Flush 3 ML SYRINGE IVFLUSH (21:36)
--- NOTE | 2025-02-07 21:39 | PC.NURSE ---
Addendum entered by Obdulia Sanders RN 02/07/25 23:23: 2323: pt refused orthostatic vitals at this time, although pt encouraged to allow us to take one set of vital signs, and he agreed at this time. Pt was able to ambulated to bathroom with walker and denies dizziness, at this time. Original Note: 2138: pt refused vital signs and full assessment at this time, pt sleeping in bed willing to take pills but no heparin. Will continue to reassess
[2025-02-08] VITALS (7 sets, daily range): BP systolic 131–161; BP diastolic 62–75; PULSE 63–72; RESP 16–17; TEMP 36.3–36.9; O2SAT 95–100
[2025-02-08] MEDS: Lidocaine 4 % Patch ADH..PATCH 1 PATCH TRANSDERMA ×2 (07:34)
[2025-02-08] MEDS: Metoprolol Succinate ER 25 MG TAB.ER.24H PO (07:36)
[2025-02-08] MEDS: 0.9 % Sodium Chloride Flush 3 ML SYRINGE IVFLUSH ×2 (07:37→20:39)
--- NOTE | 2025-02-08 08:55 | PC.NURSE ---
Patient transported to dialysis at at approximately 0825.
--- NOTE | 2025-02-08 13:42 | MHC.CM.PN ---
PTS EX-/POA/HCP IS WORKING WITH [facility] TO COMPLETE A MH AND STR/LTC [facility] FOR [facility] HAS INDICATED TO IF SHE IS ABLE TO GET ALL DOCUMENTS INTO THEM TODAY, THEY WILL OFFER A BED PT AND EX-/POA UNDERSTAND THAT [facility] MAY BE ABLE TO SKILL HIM IN INITIALLY, HOWEVER HE WILL NEED TO PRIVATE PAY ONCE CLEARED BY PT, OR IF HE STOPS PARTICIPATING WITH THEM. THEY ALSO UNDERSTAND THAT PRIVATE PAYING AT [facility] WILL INITIATE PTS SPEND DOWN, ONCE ASSETS ARE DEPLETED, HE WOULD TRANSITION TO LTC
--- NOTE | 2025-02-08 14:15 | HO.PM.IMPN ---
Subjective Subjective Date of Service: 02/08/25 Interval History: No acute issues overnight. Tolerant of hemodialysis Review of Systems Denies any shortness of breath, chest pain, lightheadedness, abdominal pain or discomfort, nausea vomiting or diarrhea. Reports occasional dizziness, none at present Physical Exam Vital Signs: Vital Signs: Last Vital Signs Temp 97.3 F 02/08/25 13:07 Pulse 64 02/08/25 13:07 Resp 17 02/08/25 13:07 BP 138/63 02/08/25 13:07 Pulse Ox 99 02/08/25 13:07 O2 Del Method Room Air 02/08/25 13:07 BMI result Body Mass Index 20.9 Const: Other: Awake alert no acute distress Resp: Other: Clear to auscultation bilaterally no rales rhonchi or wheezes Cardio: Other: No S4; positive S1-S2; no S3 murmurs rubs or gallops GI: Other: Soft nontender nondistended normoactive bowel sounds Extrem: Other: No edema bilaterally Objective Data Active Medications Acetaminophen (Acetaminophen 325 Mg Tablet) 650 mg PO Q6H PRN PRN Reason: Pain, Mild 1-3,fever,headache Last Admin: 02/08/25 07:35 Dose: 650 mg Documented By: MYLES Albuterol Sulfate (Albuterol Sulfate 90 Mcg 8 Gm Inhaler) 2 puff INHALE RQ6H PRN PRN Reason: Shortness Of Breath Or Wheezing Amlodipine Besylate (Amlodipine Besylate 5 Mg Tablet) 5 mg PO DAILY [facility]; Protocol Last Admin: 02/08/25 07:36 Dose: 5 mg Documented By: MYLES Ascorbic Acid (Ascorbic Acid 500 Mg Tablet) 1,000 mg PO DAILY [facility] Last Admin: 02/08/25 07:36 Dose: 1,000 mg Documented By: MYLES Calcium Carbonate (Calcium Carbonate 750 Mg Tab.Chew) 750 mg PO Q4H PRN PRN Reason: Heartburn Clonazepam (Clonazepam 1 Mg Tablet) 1 mg PO BEDTIME [facility] Last Admin: 02/07/25 21:34 Dose: 1 mg Documented By: CAESAR Clonazepam (Clonazepam 0.5 Mg Tablet) 0.5 mg PO BID@0900,1200 [facility] Last Admin: 02/08/25 12:47 Dose: 0.5 mg Documented By: MYLES Cyanocobalamin (Cyanocobalamin (Vitamin B-12) 1,000 Mcg Tablet) 1,000 mcg PO DAILY [facility] Last Admin: 02/08/25 07:36 Dose: 1,000 mcg Documented By: MYLES Docusate Sodium (Docusate Sodium 100 Mg Capsule) 100 mg PO BID [facility] Last Admin: 02/08/25 07:40 Dose: Not Given Documented By: MYLES Non-Admin Reason: Patient Refused Furosemide (Furosemide 40 Mg Tablet) 80 mg PO SUTUTHSA [facility]; Protocol Last Admin: 02/07/25 09:51 Dose: Not Given Documented By: MYLES Non-Admin Reason: Physician Held Med Heparin Sodium (Porcine) (Heparin Sodium,Porcine 5,000 Unit/Ml Vial) 5,000 unit SUBCUT Q12H [facility] Last Admin: 02/08/25 10:03 Dose: Not Given Documented By: MYLES Non-Admin Reason: Patient Refused Comments: Patient refused med when discussing morning medications. Lamotrigine (Lamotrigine 100 Mg Tablet) 100 mg PO DAILY [facility] Last Admin: 02/08/25 07:35 Dose: 100 mg Documented By: MYLES Lidocaine (Lidocaine 4 % Patch Adh..Patch) 1 patch TRANSDERMA DAILY [facility]; Protocol Last Admin: 02/08/25 07:34 Dose: 1 patch Documented By: MYLES Lidocaine (Lidocaine 4 % Patch Adh..Patch) 1 patch TRANSDERMA DAILY [facility]; Protocol Last Admin: 02/08/25 07:34 Dose: 1 patch Documented By: MYLES Lisinopril (Lisinopril 20 Mg Tablet) 20 mg PO DAILY [facility]; Protocol Last Admin: 02/08/25 07:36 Dose: 20 mg Documented By: MYLES Meclizine HCl (Meclizine Hcl 25 Mg Tablet) 25 mg PO BID PRN PRN Reason: dizziness Melatonin (Melatonin 3 Mg Tablet) 6 mg PO BEDTIME PRN PRN Reason: Insomnia Metoprolol Succinate (Metoprolol Succinate Er 25 Mg Tab.Er.24h) 25 mg PO DAILY [facility]; Protocol Last Admin: 02/08/25 07:36 Dose: 25 mg Documented By: MYLES Multivitamins/Vitamin C (Multivitamin Tablet) 1 tab PO DAILY [facility] Last Admin: 02/08/25 07:35 Dose: 1 tab Documented By: MYLES Oxcarbazepine (Oxcarbazepine 300 Mg Tablet) 600 mg PO BID [facility] Last Admin: 02/08/25 07:35 Dose: 600 mg Documented By: MYLES Prochlorperazine Maleate (Prochlorperazine Maleate 5 Mg Tablet) 5 mg PO BID [facility] Last Admin: 02/08/25 07:36 Dose: 5 mg Documented By: MYLES Ropinirole HCl (Ropinirole Hcl 2 Mg Tablet) 2 mg PO BEDTIME [facility] Last Admin: 02/07/25 21:34 Dose: 2 mg Documented By: CAESAR Sodium Chloride (0.9 % Sodium Chloride Flush 3 Ml Syringe) 3 ml IVFLUSH QSHIFT [facility] Last Admin: 02/08/25 07:37 Dose: 3 ml Documented By: MYLES Sodium Polystyrene Sulfonate (Sodium Polystyrene Sulfon/Sorb 15 Gm/60 Ml Oral.Susp) 15 gm G-TUBE SUTUTHSA [facility] Last Admin: 02/07/25 09:51 Dose: Not Given Documented By: MYLES Non-Admin Reason: Physician Held Med Tramadol HCl (Tramadol Hcl 50 Mg Tablet) 25 mg PO Q6H PRN PRN Reason: Pain, Severe (Pain Scale 7-10) Trazodone HCl (Trazodone Hcl 50 Mg Tablet) 50 mg PO BEDTIME [facility] Last Admin: 02/07/25 21:35 Dose: 50 mg Documented By: CAESAR Labs 02/07/25 05:39 02/07/25 05:39 Assessment and Plan (1) ESRD (end stage renal disease) on dialysis: Status: Acute Plan 74-year-old male with multiple chronic medical conditions including end-stage renal disease requiring hemodialysis, cardiomyopathy, hypertension, mild cognitive impairment, bipolar disorder, depression and anxiety, COPD, hyperlipidemia, hypertension, severe osteoarthritis of knees, RYAN on CPAP who is requiring admission for hemodialysis and placement due to failure to thrive at home and frequent falls. 1.End[facility]stage renal disease on [facility] 2.Hypertension/Cardiomyopathy/HFrEF/Aflutter -stable and well compensated -no anticoagulation secondary to increased fall risk DNR/DNI, no artificial nutrition. Heparin BID Requires ongoing hospitalization pending safe placement Quality Stroke Does the patient have a stroke diagnosis?: No VTE Prior VTE?: No VTE Risk Level:: Medical - moderate - high VTE Device Contraindication: Treatment Not Indicated VTE Drug Contraindication: N/A - Med Ordered
--- NOTE | 2025-02-08 20:34 | P.PNNP_ITS ---
Subjective Subjective Date of Service: 02/08/25 Interval history: No acute issues overnight. Tolerant of hemodialysis Physical Exam 2 Exam: Exam: cvs: s1s2 Rs; cta Abd; soft Vital Signs: Vital Signs: Last Vital Signs Temp 98.4 F 02/08/25 19:25 Pulse 65 02/08/25 19:25 Resp 17 02/08/25 19:25 BP 145/66 H 02/08/25 19:25 Pulse Ox 95 02/08/25 19:25 O2 Del Method Room Air 02/08/25 19:25 BMI result Body Mass Index 20.9 Objective Data Labs 02/07/25 05:39 02/07/25 05:39 Procedures Date of Service Date of Service: 02/08/25 Assessment & Plan Assessment and plan (1) ESRD (end stage renal disease) on dialysis: Status: Acute Plan 74-year-old male with multiple chronic medical conditions including end-stage renal disease requiring hemodialysis, cardiomyopathy, hypertension, mild cognitive impairment, bipolar disorder, depression and anxiety, COPD, hyperlipidemia, hypertension, severe osteoarthritis of knees, RYAN on CPAP who is requiring admission for hemodialysis and placement due to failure to thrive at home and frequent falls. 1. ESRD: usu HD MWF at [facility] 2. Falling epsiodes: multifact and getting eval- will monitor for orthostasis. 3. 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 MBD of CKD REC:cont MWF; cont routine meds Will follow w team Time Spent With Patient Time: Total time managing care of this patient today ____ minutes. Progress Note: Quality Stroke Does the patient have a stroke diagnosis?: No
[2025-02-09 04:00] VITALS: BP 142/61; PULSE 74; RESP 18; TEMP 37; O2SAT 96
[2025-02-09 07:24] VITALS: BP 150/69; PULSE 63; RESP 14; TEMP 36.7; O2SAT 96
[2025-02-09 09:24] VITALS: BP 131/60
[2025-02-09 09:25] VITALS: BP 131/60; PULSE 70
[2025-02-09] MEDS: Metoprolol Succinate ER 25 MG TAB.ER.24H PO (09:25)
[2025-02-09] MEDS: Lidocaine 4 % Patch ADH..PATCH 1 PATCH TRANSDERMA ×2 (09:25→09:29)
[2025-02-09] MEDS: 0.9 % Sodium Chloride Flush 3 ML SYRINGE IVFLUSH ×3 (09:25→20:52)
--- NOTE | 2025-02-09 12:08 | HO.PM.IMPN ---
Subjective Subjective Date of Service: 02/09/25 Interval History: HD yesterday, no complaints Review of Systems Review of Systems: Yes all other systems are reviewed and are negative Physical Exam Vital Signs: Vital Signs: Last Vital Signs Temp 98.1 F 02/09/25 07:24 Pulse 70 02/09/25 09:25 Resp 14 02/09/25 07:24 BP 131/60 02/09/25 09:25 Pulse Ox 96 02/09/25 07:24 O2 Del Method Room Air 02/09/25 07:24 BMI result Body Mass Index 20.9 Gen: in no acute distress HEENT: sclera anicteric, moist mucus membranes Neck: supple Lungs: clear to auscultation bilaterally Heart: regular rate and rhythm, no murmurs Abd: soft, non-tender, non-distended Ext: no edema Skin: warm/well-perfused Neuro: alert and oriented x3, no focal findings Psych: appropriate affect Objective Data Active Medications Acetaminophen (Acetaminophen 325 Mg Tablet) 650 mg PO Q6H PRN PRN Reason: Pain, Mild 1-3,fever,headache Last Admin: 02/09/25 09:24 Dose: 650 mg Documented By: LEONARDO Albuterol Sulfate (Albuterol Sulfate 90 Mcg 8 Gm Inhaler) 2 puff INHALE RQ6H PRN PRN Reason: Shortness Of Breath Or Wheezing Amlodipine Besylate (Amlodipine Besylate 5 Mg Tablet) 5 mg PO DAILY [facility]; Protocol Last Admin: 02/09/25 09:25 Dose: 5 mg Documented By: LEONARDO Ascorbic Acid (Ascorbic Acid 500 Mg Tablet) 1,000 mg PO DAILY [facility] Last Admin: 02/09/25 09:23 Dose: 1,000 mg Documented By: LEONARDO Calcium Carbonate (Calcium Carbonate 750 Mg Tab.Chew) 750 mg PO Q4H PRN PRN Reason: Heartburn Clonazepam (Clonazepam 1 Mg Tablet) 1 mg PO BEDTIME [facility] Last Admin: 02/08/25 20:38 Dose: 1 mg Documented By: ANJELICA Clonazepam (Clonazepam 0.5 Mg Tablet) 0.5 mg PO BID@0900,1200 [facility] Last Admin: 02/09/25 09:24 Dose: 0.5 mg Documented By: LEONARDO Cyanocobalamin (Cyanocobalamin (Vitamin B-12) 1,000 Mcg Tablet) 1,000 mcg PO DAILY [facility] Last Admin: 02/09/25 09:24 Dose: 1,000 mcg Documented By: LEONARDO Docusate Sodium (Docusate Sodium 100 Mg Capsule) 100 mg PO BID [facility] Last Admin: 02/09/25 09:25 Dose: Not Given Documented By: LEONARDO Non-Admin Reason: Patient Refused Furosemide (Furosemide 40 Mg Tablet) 80 mg PO SUTUTHSA [facility]; Protocol Last Admin: 02/09/25 09:41 Dose: 80 mg Documented By: LEONARDO Heparin Sodium (Porcine) (Heparin Sodium,Porcine 5,000 Unit/Ml Vial) 5,000 unit SUBCUT Q12H [facility] Last Admin: 02/09/25 09:33 Dose: Not Given Documented By: LEONARDO Non-Admin Reason: Patient Refused Lamotrigine (Lamotrigine 100 Mg Tablet) 100 mg PO DAILY [facility] Last Admin: 02/09/25 09:23 Dose: 100 mg Documented By: LEONARDO Lidocaine (Lidocaine 4 % Patch Adh..Patch) 1 patch TRANSDERMA DAILY [facility]; Protocol Last Admin: 02/09/25 09:25 Dose: 1 patch Documented By: LEONARDO Lidocaine (Lidocaine 4 % Patch Adh..Patch) 1 patch TRANSDERMA DAILY [facility]; Protocol Last Admin: 02/09/25 09:29 Dose: 1 patch Documented By: LEONARDO Lisinopril (Lisinopril 20 Mg Tablet) 20 mg PO DAILY [facility]; Protocol Last Admin: 02/09/25 09:24 Dose: 20 mg Documented By: LEONARDO Meclizine HCl (Meclizine Hcl 25 Mg Tablet) 25 mg PO BID PRN PRN Reason: dizziness Melatonin (Melatonin 3 Mg Tablet) 6 mg PO BEDTIME PRN PRN Reason: Insomnia Metoprolol Succinate (Metoprolol Succinate Er 25 Mg Tab.Er.24h) 25 mg PO DAILY [facility]; Protocol Last Admin: 02/09/25 09:25 Dose: 25 mg Documented By: LEONARDO Multivitamins/Vitamin C (Multivitamin Tablet) 1 tab PO DAILY [facility] Last Admin: 02/09/25 09:24 Dose: 1 tab Documented By: LEONARDO Oxcarbazepine (Oxcarbazepine 300 Mg Tablet) 600 mg PO BID [facility] Last Admin: 02/09/25 09:24 Dose: 600 mg Documented By: LEONARDO Prochlorperazine Maleate (Prochlorperazine Maleate 5 Mg Tablet) 5 mg PO BID [facility] Last Admin: 02/09/25 10:35 Dose: 5 mg Documented By: LEONARDO Comments: medication not available at scheduled time Ropinirole HCl (Ropinirole Hcl 2 Mg Tablet) 2 mg PO BEDTIME [facility] Last Admin: 02/08/25 20:38 Dose: 2 mg Documented By: ANJELICA Sodium Chloride (0.9 % Sodium Chloride Flush 3 Ml Syringe) 3 ml IVFLUSH QSHIFT [facility] Last Admin: 02/09/25 09:25 Dose: 3 ml Documented By: LEONARDO Sodium Polystyrene Sulfonate (Sodium Polystyrene Sulfon/Sorb 15 Gm/60 Ml Oral.Susp) 15 gm PO SUTUTHSA [facility] Last Admin: 02/09/25 10:36 Dose: 15 gm Documented By: LEONARDO Tramadol HCl (Tramadol Hcl 50 Mg Tablet) 25 mg PO Q6H PRN PRN Reason: Pain, Severe (Pain Scale 7-10) Trazodone HCl (Trazodone Hcl 50 Mg Tablet) 50 mg PO BEDTIME [facility] Last Admin: 02/08/25 20:38 Dose: 50 mg Documented By: ANJELICA Labs 02/07/25 05:39 02/07/25 05:39 Assessment and Plan (1) ESRD (end stage renal disease) on dialysis: Status: Acute Plan d4 for 74yo M with ESRD on HD MWF, cardiomyopathy, HFrEF, AF, HTN, MCI, bipolar depression, COPD, HLD, HTN, and RYAN on CPAP admitted for HD/plcaement due to FTT/frequent falls ESRD on HD - HD MWF, Nephro following, Kayexelate TuThSa AF - no AC due to increased fall risk HF with mildly reduced EF, chronic - furosemide, lisinopril, metoprolol succinate HTN - amlodipine, lisinopril, metoprolol succinate mood disorder - clonazepam, oxcarbazepine, lamotrigine, trazodone FTT/frequent falls - plan STR then LTC VTE ppx - UFH dispo - STR then LTC Total time managing care of this patient today: 35 minutes. Quality Stroke Does the patient have a stroke diagnosis?: No VTE Prior VTE?: No VTE Risk Level:: Medical - moderate - high VTE Device Contraindication: Treatment Not Indicated VTE Drug Contraindication: N/A - Med Ordered
[2025-02-09 15:33] VITALS: BP 120/59; PULSE 66; RESP 18; TEMP 36.8; O2SAT 96
[2025-02-09 19:38] VITALS: BP 126/60; PULSE 69; RESP 18; TEMP 36.8; O2SAT 93
[2025-02-10 03:18] VITALS: BP 124/59; PULSE 67; RESP 16; TEMP 36.6; O2SAT 96
[2025-02-10 07:19] VITALS: BP 123/80; PULSE 59; RESP 14; TEMP 36.4; O2SAT 99
[2025-02-10 08:35] VITALS: BP 148/66; PULSE 68
[2025-02-10] MEDS: Metoprolol Succinate ER 25 MG TAB.ER.24H PO (08:35)
[2025-02-10 08:36] VITALS: BP 148/66
[2025-02-10] MEDS: 0.9 % Sodium Chloride Flush 3 ML SYRINGE IVFLUSH ×3 (08:37→20:33)
[2025-02-10] MEDS: Lidocaine 4 % Patch ADH..PATCH 1 PATCH TRANSDERMA ×2 (08:41)
--- NOTE | 2025-02-10 09:29 | HO.PM.IMPN ---
Subjective Subjective Date of Service: 02/10/25 Interval History: no new complaints or events Review of Systems Review of Systems: Yes all other systems are reviewed and are negative Physical Exam Vital Signs: Vital Signs: Last Vital Signs Temp 97.6 F 02/10/25 07:19 Pulse 68 02/10/25 08:35 Resp 14 02/10/25 07:19 BP 148/66 H 02/10/25 08:36 Pulse Ox 99 02/10/25 07:19 O2 Del Method Room Air 02/10/25 07:19 BMI result Body Mass Index 20.9 Gen: in no acute distress HEENT: sclera anicteric, moist mucus membranes Neck: supple Lungs: clear to auscultation bilaterally Heart: regular rate and rhythm, no murmurs Abd: soft, non-tender, non-distended Ext: no edema Skin: warm/well-perfused Neuro: alert and oriented x3, no focal findings Psych: appropriate affect Objective Data Active Medications Acetaminophen (Acetaminophen 325 Mg Tablet) 650 mg PO Q6H PRN PRN Reason: Pain, Mild 1-3,fever,headache Last Admin: 02/10/25 06:19 Dose: 650 mg Documented By: ANJELICA Albuterol Sulfate (Albuterol Sulfate 90 Mcg 8 Gm Inhaler) 2 puff INHALE RQ6H PRN PRN Reason: Shortness Of Breath Or Wheezing Amlodipine Besylate (Amlodipine Besylate 5 Mg Tablet) 5 mg PO DAILY [facility]; Protocol Last Admin: 02/10/25 08:36 Dose: 5 mg Documented By: LEONARDO Ascorbic Acid (Ascorbic Acid 500 Mg Tablet) 1,000 mg PO DAILY [facility] Last Admin: 02/10/25 08:35 Dose: 1,000 mg Documented By: LEONARDO Calcium Carbonate (Calcium Carbonate 750 Mg Tab.Chew) 750 mg PO Q4H PRN PRN Reason: Heartburn Clonazepam (Clonazepam 1 Mg Tablet) 1 mg PO BEDTIME [facility] Last Admin: 02/09/25 20:51 Dose: 1 mg Documented By: ANJELICA Clonazepam (Clonazepam 0.5 Mg Tablet) 0.5 mg PO BID@0900,1200 [facility] Last Admin: 02/10/25 08:36 Dose: 0.5 mg Documented By: LEONARDO Cyanocobalamin (Cyanocobalamin (Vitamin B-12) 1,000 Mcg Tablet) 1,000 mcg PO DAILY [facility] Last Admin: 02/10/25 08:36 Dose: 1,000 mcg Documented By: LEONARDO Docusate Sodium (Docusate Sodium 100 Mg Capsule) 100 mg PO BID [facility] Last Admin: 02/10/25 08:36 Dose: Not Given Documented By: LEONARDO Non-Admin Reason: Patient Refused Furosemide (Furosemide 40 Mg Tablet) 80 mg PO SUTUTHSA [facility]; Protocol Last Admin: 02/09/25 09:41 Dose: 80 mg Documented By: LEONARDO Heparin Sodium (Porcine) (Heparin Sodium,Porcine 5,000 Unit/Ml Vial) 5,000 unit SUBCUT Q12H [facility] Last Admin: 02/10/25 08:37 Dose: Not Given Documented By: LEONARDO Non-Admin Reason: Patient Refused Lamotrigine (Lamotrigine 100 Mg Tablet) 100 mg PO DAILY [facility] Last Admin: 02/10/25 08:36 Dose: 100 mg Documented By: LEONARDO Lidocaine (Lidocaine 4 % Patch Adh..Patch) 1 patch TRANSDERMA DAILY [facility]; Protocol Last Admin: 02/10/25 08:41 Dose: 1 patch Documented By: LEONARDO Lidocaine (Lidocaine 4 % Patch Adh..Patch) 1 patch TRANSDERMA DAILY [facility]; Protocol Last Admin: 02/10/25 08:41 Dose: 1 patch Documented By: LEONARDO Lisinopril (Lisinopril 20 Mg Tablet) 20 mg PO DAILY [facility]; Protocol Last Admin: 02/10/25 08:36 Dose: 20 mg Documented By: LEONARDO Meclizine HCl (Meclizine Hcl 25 Mg Tablet) 25 mg PO BID PRN PRN Reason: dizziness Melatonin (Melatonin 3 Mg Tablet) 6 mg PO BEDTIME PRN PRN Reason: Insomnia Metoprolol Succinate (Metoprolol Succinate Er 25 Mg Tab.Er.24h) 25 mg PO DAILY [facility]; Protocol Last Admin: 02/10/25 08:35 Dose: 25 mg Documented By: LEONARDO Multivitamins/Vitamin C (Multivitamin Tablet) 1 tab PO DAILY [facility] Last Admin: 02/10/25 08:35 Dose: 1 tab Documented By: LEONARDO Oxcarbazepine (Oxcarbazepine 300 Mg Tablet) 600 mg PO BID [facility] Last Admin: 02/10/25 08:36 Dose: 600 mg Documented By: LEONARDO Prochlorperazine Maleate (Prochlorperazine Maleate 5 Mg Tablet) 5 mg PO BID [facility] Last Admin: 02/10/25 08:36 Dose: 5 mg Documented By: LEONADRO Ropinirole HCl (Ropinirole Hcl 2 Mg Tablet) 2 mg PO BEDTIME [facility] Last Admin: 02/09/25 20:51 Dose: 2 mg Documented By: ANJELICA Sodium Chloride (0.9 % Sodium Chloride Flush 3 Ml Syringe) 3 ml IVFLUSH QSHIFT [facility] Last Admin: 02/10/25 08:37 Dose: 3 ml Documented By: LEONARDO Sodium Polystyrene Sulfonate (Sodium Polystyrene Sulfon/Sorb 15 Gm/60 Ml Oral.Susp) 15 gm PO SUTUTHSA [facility] Last Admin: 02/09/25 10:36 Dose: 15 gm Documented By: LEONARDO Tramadol HCl (Tramadol Hcl 50 Mg Tablet) 25 mg PO Q6H PRN PRN Reason: Pain, Severe (Pain Scale 7-10) Trazodone HCl (Trazodone Hcl 50 Mg Tablet) 50 mg PO BEDTIME [facility] Last Admin: 02/09/25 20:51 Dose: 50 mg Documented By: ANJELICA Labs 02/07/25 05:39 02/07/25 05:39 Assessment and Plan (1) ESRD (end stage renal disease) on dialysis: Status: Acute Plan d5 for 74yo M with ESRD on HD MWF, cardiomyopathy, HFrEF, AF, HTN, MCI, bipolar depression, COPD, HLD, HTN, and RYAN on CPAP admitted for HD/plcaement due to FTT/frequent falls ESRD on HD - HD MWF, Nephro following, Kayexelate TuThSa AF - no AC due to increased fall risk HF with mildly reduced EF, chronic - furosemide, lisinopril, metoprolol succinate HTN - amlodipine, lisinopril, metoprolol succinate mood disorder - clonazepam, oxcarbazepine, lamotrigine, trazodone FTT/frequent falls - plan STR then LTC VTE ppx - UFH dispo - STR then LTC In my clinical judgment, the patient requires continued inpatient hospitalization for the following reasons: placement Total time managing care of this patient today: 35 minutes. Quality Stroke Does the patient have a stroke diagnosis?: No VTE Prior VTE?: No VTE Risk Level:: Medical - moderate - high VTE Device Contraindication: Treatment Not Indicated VTE Drug Contraindication: N/A - Med Ordered
[2025-02-10 15:21] VITALS: BP 132/61; PULSE 61; RESP 14; TEMP 36.7; O2SAT 95
[2025-02-10 19:22] VITALS: BP 141/65; PULSE 68; RESP 18; TEMP 36.6; O2SAT 98
[2025-02-11] VITALS (7 sets, daily range): BP systolic 116–143; BP diastolic 56–65; PULSE 62–69; RESP 14–18; TEMP 36.4–36.9; O2SAT 94–99
--- NOTE | 2025-02-11 12:09 | HO.PM.IMPN ---
Subjective Subjective Date of Service: 02/11/25 Interval History: in HD today no complaints Review of Systems Review of Systems: Yes all other systems are reviewed and are negative Physical Exam Vital Signs: Vital Signs: Last Vital Signs Temp 98.4 F 02/11/25 07:17 Pulse 63 02/11/25 07:17 Resp 16 02/11/25 07:17 BP 143/65 H 02/11/25 07:17 Pulse Ox 99 02/11/25 07:17 O2 Del Method Room Air 02/11/25 07:17 BMI result Body Mass Index 20.9 Gen: in no acute distress HEENT: sclera anicteric, moist mucus membranes Neck: supple Lungs: clear to auscultation bilaterally Heart: regular rate and rhythm, no murmurs Abd: soft, non-tender, non-distended Ext: no edema Skin: warm/well-perfused Neuro: alert and oriented x3, no focal findings Psych: appropriate affect Objective Data Active Medications Acetaminophen (Acetaminophen 325 Mg Tablet) 650 mg PO Q6H PRN PRN Reason: Pain, Mild 1-3,fever,headache Last Admin: 02/10/25 12:19 Dose: 650 mg Documented By: LEONARDO Albuterol Sulfate (Albuterol Sulfate 90 Mcg 8 Gm Inhaler) 2 puff INHALE RQ6H PRN PRN Reason: Shortness Of Breath Or Wheezing Amlodipine Besylate (Amlodipine Besylate 5 Mg Tablet) 5 mg PO DAILY [facility]; Protocol Last Admin: 02/10/25 08:36 Dose: 5 mg Documented By: LEONARDO Ascorbic Acid (Ascorbic Acid 500 Mg Tablet) 1,000 mg PO DAILY [facility] Last Admin: 02/10/25 08:35 Dose: 1,000 mg Documented By: LEONARDO Calcium Carbonate (Calcium Carbonate 750 Mg Tab.Chew) 750 mg PO Q4H PRN PRN Reason: Heartburn Clonazepam (Clonazepam 1 Mg Tablet) 1 mg PO BEDTIME [facility] Last Admin: 02/10/25 20:29 Dose: 1 mg Documented By: DANIKA Cyanocobalamin (Cyanocobalamin (Vitamin B-12) 1,000 Mcg Tablet) 1,000 mcg PO DAILY [facility] Last Admin: 02/10/25 08:36 Dose: 1,000 mcg Documented By: LEONARDO Docusate Sodium (Docusate Sodium 100 Mg Capsule) 100 mg PO BID [facility] Last Admin: 02/10/25 20:33 Dose: Not Given Documented By: DANIKA Non-Admin Reason: Patient Refused Furosemide (Furosemide 40 Mg Tablet) 80 mg PO SUTUTHSA [facility]; Protocol Last Admin: 02/10/25 10:12 Dose: 80 mg Documented By: LEONARDO Heparin Sodium (Porcine) (Heparin Sodium,Porcine 5,000 Unit/Ml Vial) 5,000 unit SUBCUT Q12H [facility] Last Admin: 02/10/25 21:15 Dose: Not Given Documented By: DANIKA Non-Admin Reason: Patient Refused Lamotrigine (Lamotrigine 100 Mg Tablet) 100 mg PO DAILY [facility] Last Admin: 02/10/25 08:36 Dose: 100 mg Documented By: LEONARDO Lidocaine (Lidocaine 4 % Patch Adh..Patch) 1 patch TRANSDERMA DAILY [facility]; Protocol Last Admin: 02/10/25 08:41 Dose: 1 patch Documented By: LEONARDO Lidocaine (Lidocaine 4 % Patch Adh..Patch) 1 patch TRANSDERMA DAILY [facility]; Protocol Last Admin: 02/10/25 08:41 Dose: 1 patch Documented By: LEONARDO Lisinopril (Lisinopril 20 Mg Tablet) 20 mg PO DAILY [facility]; Protocol Last Admin: 02/10/25 08:36 Dose: 20 mg Documented By: LEONARDO Meclizine HCl (Meclizine Hcl 25 Mg Tablet) 25 mg PO BID PRN PRN Reason: dizziness Melatonin (Melatonin 3 Mg Tablet) 6 mg PO BEDTIME PRN PRN Reason: Insomnia Metoprolol Succinate (Metoprolol Succinate Er 25 Mg Tab.Er.24h) 25 mg PO DAILY [facility]; Protocol Last Admin: 02/10/25 08:35 Dose: 25 mg Documented By: LEONARDO Multivitamins/Vitamin C (Multivitamin Tablet) 1 tab PO DAILY [facility] Last Admin: 02/10/25 08:35 Dose: 1 tab Documented By: LEONARDO Oxcarbazepine (Oxcarbazepine 300 Mg Tablet) 600 mg PO BID [facility] Last Admin: 02/10/25 20:29 Dose: 600 mg Documented By: DANIKA Prochlorperazine Maleate (Prochlorperazine Maleate 5 Mg Tablet) 5 mg PO BID [facility] Last Admin: 02/10/25 20:29 Dose: 5 mg Documented By: DANIKA Ropinirole HCl (Ropinirole Hcl 2 Mg Tablet) 2 mg PO BEDTIME [facility] Last Admin: 02/10/25 20:29 Dose: 2 mg Documented By: DANIKA Sodium Chloride (0.9 % Sodium Chloride Flush 3 Ml Syringe) 3 ml IVFLUSH QSHIFT [facility] Last Admin: 02/11/25 08:39 Dose: Not Given Documented By: DRU Non-Admin Reason: Off unit: Dialysis Sodium Polystyrene Sulfonate (Sodium Polystyrene Sulfon/Sorb 15 Gm/60 Ml Oral.Susp) 15 gm PO SUTUTHSA [facility] Last Admin: 02/10/25 10:12 Dose: 15 gm Documented By: LEONARDO Trazodone HCl (Trazodone Hcl 50 Mg Tablet) 50 mg PO BEDTIME [facility] Last Admin: 02/10/25 20:29 Dose: 50 mg Documented By: DANIKA Labs 02/07/25 05:39 02/07/25 05:39 Assessment and Plan (1) ESRD (end stage renal disease) on dialysis: Status: Acute Plan d6 for 74yo M with ESRD on HD MWF, cardiomyopathy, HFrEF, AF, HTN, MCI, bipolar depression, COPD, HLD, HTN, and RYAN on CPAP admitted for HD/placement due to FTT/frequent falls ESRD on HD - HD MWF, Nephro following, Kayexelate TuThSa AF - no AC due to increased fall risk HF with mildly reduced EF, chronic - furosemide, lisinopril, metoprolol succinate HTN - amlodipine, lisinopril, metoprolol succinate mood disorder - clonazepam, oxcarbazepine, lamotrigine, trazodone FTT/frequent falls - plan STR then LTC VTE ppx - UFH dispo - STR then LTC In my clinical judgment, the patient requires continued inpatient hospitalization for the following reasons: placement Total time managing care of this patient today: 30 minutes. Quality Stroke Does the patient have a stroke diagnosis?: No VTE Prior VTE?: No VTE Risk Level:: Medical - moderate - high VTE Device Contraindication: Treatment Not Indicated VTE Drug Contraindication: N/A - Med Ordered
[2025-02-11] MEDS: Lidocaine 4 % Patch ADH..PATCH 1 PATCH TRANSDERMA ×2 (13:15)
[2025-02-11] MEDS: Metoprolol Succinate ER 25 MG TAB.ER.24H PO (13:17)
--- NOTE | 2025-02-11 14:24 | MHC.CM.PN ---
EMR REVIEWED. [facility] WAS REVIEWING BUT CURRENTLY UNABLE TO OFFER A BED , NO OPEN HD SLOTS. [facility] [employer] [employer] CONTINUES TO WORK ON MH FAHEEM/DOCUMENTS. CM WILL CONTINUE TO FOLLOW
[2025-02-11] MEDS: 0.9 % Sodium Chloride Flush 3 ML SYRINGE IVFLUSH ×2 (16:03→19:46)
--- NOTE | 2025-02-11 23:42 | P.PNNP_ITS ---
Subjective Subjective Date of Service: 02/11/25 Interval history: in HD today no complaints Physical Exam 2 Vital Signs: Vital Signs: Last Vital Signs Temp 97.5 F 02/11/25 19:30 Pulse 66 02/11/25 19:30 Resp 17 02/11/25 19:30 BP 119/58 L 02/11/25 19:30 Pulse Ox 98 02/11/25 19:30 O2 Del Method Room Air 02/11/25 19:30 BMI result Body Mass Index 20.9 Const: Other: Awake alert no acute distress Resp: Other: Clear to auscultation bilaterally no rales rhonchi or wheezes Cardio: Other: No S4; positive S1-S2; no S3 murmurs rubs or gallops GI: Other: Soft nontender nondistended normoactive bowel sounds Extrem: Other: No edema bilaterally Objective Data Labs 02/07/25 05:39 02/07/25 05:39 Procedures Date of Service Date of Service: 02/11/25 Assessment & Plan Assessment and plan (1) ESRD (end stage renal disease) on dialysis: Status: Acute Plan d6 for 74yo M with ESRD on HD MWF, cardiomyopathy, HFrEF, AF, HTN, MCI, bipolar depression, COPD, HLD, HTN, and RYAN on CPAP admitted for HD/placement due to FTT/frequent falls ESRD on HD - HD MWF ( [facility]) HyperK: controlled now K-binder as needed Nephrogenic Anmeia MBD of CKD REC: cont HD MWF, D/C planning Time Spent With Patient Time: Total time managing care of this patient today ____ minutes. Progress Note: Quality Stroke Does the patient have a stroke diagnosis?: No
[2025-02-12 00:10] VITALS: BP 122/61; PULSE 65; RESP 16; TEMP 36.8; O2SAT 98
[2025-02-12 07:35] VITALS: BP 139/65; PULSE 71; RESP 16; TEMP 36.6; O2SAT 97
[2025-02-12] MEDS: Metoprolol Succinate ER 25 MG TAB.ER.24H PO (08:26)
[2025-02-12] MEDS: Lidocaine 4 % Patch ADH..PATCH 1 PATCH TRANSDERMA ×2 (08:27)
[2025-02-12] MEDS: 0.9 % Sodium Chloride Flush 3 ML SYRINGE IVFLUSH ×3 (08:32→20:15)
[2025-02-12 09:15] VITALS: BP 124/59
--- NOTE | 2025-02-12 09:48 | P.PNIM_ITS ---
Subjective Subjective Date of Service: 02/12/25 Interval History: in HD today no complaints Review of Systems Review of Systems: Yes all other systems are reviewed and are negative Physical Exam 2 Vital Signs: Vital Signs: Last Vital Signs Temp 97.9 F 02/12/25 07:35 Pulse 71 02/12/25 07:35 Resp 16 02/12/25 07:35 BP 124/59 L 02/12/25 09:15 Pulse Ox 97 02/12/25 07:35 O2 Del Method Room Air 02/12/25 07:35 BMI result Body Mass Index 20.9 Const: Other: Awake alert no acute distress Resp: Other: Clear to auscultation bilaterally no rales rhonchi or wheezes Cardio: Other: No S4; positive S1-S2; no S3 murmurs rubs or gallops GI: Other: Soft nontender nondistended normoactive bowel sounds Extrem: Other: No edema bilaterally Objective Data Active Medications Acetaminophen (Acetaminophen 325 Mg Tablet) 650 mg PO Q6H PRN PRN Reason: Pain, Mild 1-3,fever,headache Last Admin: 02/11/25 16:02 Dose: 650 mg Documented By: DRU Albuterol Sulfate (Albuterol Sulfate 90 Mcg 8 Gm Inhaler) 2 puff INHALE RQ6H PRN PRN Reason: Shortness Of Breath Or Wheezing Amlodipine Besylate (Amlodipine Besylate 5 Mg Tablet) 5 mg PO DAILY [facility]; Protocol Last Admin: 02/12/25 08:26 Dose: 5 mg Documented By: DRU Ascorbic Acid (Ascorbic Acid 500 Mg Tablet) 1,000 mg PO DAILY [facility] Last Admin: 02/12/25 08:26 Dose: 1,000 mg Documented By: DRU Calcium Carbonate (Calcium Carbonate 750 Mg Tab.Chew) 750 mg PO Q4H PRN PRN Reason: Heartburn Cyanocobalamin (Cyanocobalamin (Vitamin B-12) 1,000 Mcg Tablet) 1,000 mcg PO DAILY [facility] Last Admin: 02/12/25 08:26 Dose: 1,000 mcg Documented By: DRU Docusate Sodium (Docusate Sodium 100 Mg Capsule) 100 mg PO BID [facility] Last Admin: 02/12/25 08:33 Dose: Not Given Documented By: DRU Non-Admin Reason: Patient Refused Furosemide (Furosemide 40 Mg Tablet) 80 mg PO [facility]; Protocol Last Admin: 02/12/25 09:15 Dose: 80 mg Documented By: DRU Heparin Sodium (Porcine) (Heparin Sodium,Porcine 5,000 Unit/Ml Vial) 5,000 unit SUBCUT Q12H [facility] Last Admin: 02/12/25 09:13 Dose: Not Given Documented By: DRU Non-Admin Reason: Patient Refused Lamotrigine (Lamotrigine 100 Mg Tablet) 100 mg PO DAILY [facility] Last Admin: 02/12/25 08:27 Dose: 100 mg Documented By: DRU Lidocaine (Lidocaine 4 % Patch Adh..Patch) 1 patch TRANSDERMA DAILY [facility]; Protocol Last Admin: 02/12/25 08:27 Dose: 1 patch Documented By: DRU Lidocaine (Lidocaine 4 % Patch Adh..Patch) 1 patch TRANSDERMA DAILY [facility]; Protocol Last Admin: 02/12/25 08:27 Dose: 1 patch Documented By: DRU Lisinopril (Lisinopril 20 Mg Tablet) 20 mg PO DAILY [facility]; Protocol Last Admin: 02/12/25 08:26 Dose: 20 mg Documented By: DRU Meclizine HCl (Meclizine Hcl 25 Mg Tablet) 25 mg PO BID PRN PRN Reason: dizziness Melatonin (Melatonin 3 Mg Tablet) 6 mg PO BEDTIME PRN PRN Reason: Insomnia Metoprolol Succinate (Metoprolol Succinate Er 25 Mg Tab.Er.24h) 25 mg PO DAILY [facility]; Protocol Last Admin: 02/12/25 08:26 Dose: 25 mg Documented By: DRU Multivitamins/Vitamin C (Multivitamin Tablet) 1 tab PO DAILY [facility] Last Admin: 02/12/25 08:26 Dose: 1 tab Documented By: DRU Oxcarbazepine (Oxcarbazepine 300 Mg Tablet) 600 mg PO BID [facility] Last Admin: 02/12/25 08:26 Dose: 600 mg Documented By: DRU Prochlorperazine Maleate (Prochlorperazine Maleate 5 Mg Tablet) 5 mg PO BID [facility] Last Admin: 02/12/25 08:26 Dose: 5 mg Documented By: DRU Ropinirole HCl (Ropinirole Hcl 2 Mg Tablet) 2 mg PO BEDTIME [facility] Last Admin: 02/11/25 19:46 Dose: 2 mg Documented By: YANI Sodium Chloride (0.9 % Sodium Chloride Flush 3 Ml Syringe) 3 ml IVFLUSH QSHIFT [facility] Last Admin: 02/12/25 08:32 Dose: 3 ml Documented By: DRU Sodium Polystyrene Sulfonate (Sodium Polystyrene Sulfon/Sorb 15 Gm/60 Ml Oral.Susp) 15 gm PO SUTUTHSA [facility] Last Admin: 02/12/25 09:15 Dose: 15 gm Documented By: DRU Trazodone HCl (Trazodone Hcl 50 Mg Tablet) 50 mg PO BEDTIME [facility] Last Admin: 02/11/25 19:46 Dose: 50 mg Documented By: YANI Labs 02/07/25 05:39 02/07/25 05:39 Assessment and Plan (1) ESRD (end stage renal disease) on dialysis: Status: Acute Plan d7 for 74yo M with ESRD on HD MWF, cardiomyopathy, HFrEF, AF, HTN, MCI, bipolar depression, COPD, HLD, HTN, and RYAN on CPAP admitted for HD/placement due to FTT/frequent falls ESRD on HD - HD MWF, Nephro following, Kayexelate TuThSa AF - no AC due to increased fall risk HF with mildly reduced EF, chronic - furosemide, lisinopril, metoprolol succinate HTN - amlodipine, lisinopril, metoprolol succinate mood disorder - clonazepam, oxcarbazepine, lamotrigine, trazodone FTT/frequent falls - plan STR then LTC VTE ppx - UFH dispo - STR then LTC In my clinical judgment, the patient requires continued inpatient hospitalization for the following reasons: placement Total time managing care of this patient today: 30 minutes. Quality Stroke Does the patient have a stroke diagnosis?: No VTE Prior VTE?: No VTE Risk Level:: Medical - moderate - high VTE Device Contraindication: Treatment Not Indicated VTE Drug Contraindication: N/A - Med Ordered
[2025-02-12 15:19] VITALS: BP 126/61; PULSE 65; RESP 18; TEMP 37.1; O2SAT 97
[2025-02-12 19:15] VITALS: BP 141/60; PULSE 61; RESP 12; TEMP 37.2; O2SAT 98
--- NOTE | 2025-02-12 22:04 | PC.NURSE ---
Pt specifically requested not to wake him up to give bedtime Klonopin if he was asleep. Pt was asleep at scheduled time. Med held per pt request.
[2025-02-12 23:30] VITALS: BP 120/59; PULSE 61; RESP 16; TEMP 36.8; O2SAT 94
[2025-02-13 07:28] VITALS: BP 157/67; PULSE 68; RESP 14; TEMP 36.7; O2SAT 97
[2025-02-13] MEDS: Metoprolol Succinate ER 25 MG TAB.ER.24H PO (07:30)
[2025-02-13] MEDS: Lidocaine 4 % Patch ADH..PATCH 1 PATCH TRANSDERMA ×2 (07:31)
[2025-02-13] MEDS: 0.9 % Sodium Chloride Flush 3 ML SYRINGE IVFLUSH ×3 (07:36→21:24)
--- NOTE | 2025-02-13 09:07 | P.PNIM_ITS ---
Subjective Subjective Date of Service: 02/13/25 Interval History: in HD today no complaints Review of Systems Review of Systems: Yes all other systems are reviewed and are negative Physical Exam 2 Vital Signs: Vital Signs: Last Vital Signs Temp 98.1 F 02/13/25 07:28 Pulse 68 02/13/25 07:28 Resp 14 02/13/25 07:28 BP 157/67 H 02/13/25 07:28 Pulse Ox 97 02/13/25 07:28 O2 Del Method Room Air 02/13/25 07:28 BMI result Body Mass Index 20.9 Const: Other: Awake alert no acute distress Resp: Other: Clear to auscultation bilaterally no rales rhonchi or wheezes Cardio: Other: No S4; positive S1-S2; no S3 murmurs rubs or gallops GI: Other: Soft nontender nondistended normoactive bowel sounds Extrem: Other: No edema bilaterally Objective Data Active Medications Acetaminophen (Acetaminophen 325 Mg Tablet) 650 mg PO Q6H PRN PRN Reason: Pain, Mild 1-3,fever,headache Last Admin: 02/13/25 07:30 Dose: 650 mg Documented By: PRASANNA Albuterol Sulfate (Albuterol Sulfate 90 Mcg 8 Gm Inhaler) 2 puff INHALE RQ6H PRN PRN Reason: Shortness Of Breath Or Wheezing Amlodipine Besylate (Amlodipine Besylate 5 Mg Tablet) 5 mg PO DAILY [facility]; Protocol Last Admin: 02/13/25 07:30 Dose: 5 mg Documented By: PRASANNA Ascorbic Acid (Ascorbic Acid 500 Mg Tablet) 1,000 mg PO DAILY [facility] Last Admin: 02/13/25 07:29 Dose: 1,000 mg Documented By: PRASANNA Calcium Carbonate (Calcium Carbonate 750 Mg Tab.Chew) 750 mg PO Q4H PRN PRN Reason: Heartburn Cyanocobalamin (Cyanocobalamin (Vitamin B-12) 1,000 Mcg Tablet) 1,000 mcg PO DAILY [facility] Last Admin: 02/13/25 07:29 Dose: 1,000 mcg Documented By: PRASANNA Docusate Sodium (Docusate Sodium 100 Mg Capsule) 100 mg PO BID [facility] Last Admin: 02/13/25 07:34 Dose: Not Given Documented By: PRASANNA Non-Admin Reason: Patient Refused Furosemide (Furosemide 40 Mg Tablet) 80 mg PO SUTUTHSA [facility]; Protocol Last Admin: 02/12/25 09:15 Dose: 80 mg Documented By: DRU Heparin Sodium (Porcine) (Heparin Sodium,Porcine 5,000 Unit/Ml Vial) 5,000 unit SUBCUT Q12H [facility] Last Admin: 02/13/25 07:37 Dose: Not Given Documented By: PRASANNA Non-Admin Reason: Patient Refused Lamotrigine (Lamotrigine 100 Mg Tablet) 100 mg PO DAILY [facility] Last Admin: 02/13/25 07:30 Dose: 100 mg Documented By: PRASANNA Lidocaine (Lidocaine 4 % Patch Adh..Patch) 1 patch TRANSDERMA DAILY [facility]; Protocol Last Admin: 02/13/25 07:31 Dose: 1 patch Documented By: PRASANNA Lidocaine (Lidocaine 4 % Patch Adh..Patch) 1 patch TRANSDERMA DAILY [facility]; Protocol Last Admin: 02/13/25 07:31 Dose: 1 patch Documented By: PRASANNA Lisinopril (Lisinopril 20 Mg Tablet) 20 mg PO DAILY [facility]; Protocol Last Admin: 02/13/25 07:30 Dose: 20 mg Documented By: PRASANNA Meclizine HCl (Meclizine Hcl 25 Mg Tablet) 25 mg PO BID PRN PRN Reason: dizziness Melatonin (Melatonin 3 Mg Tablet) 6 mg PO BEDTIME PRN PRN Reason: Insomnia Metoprolol Succinate (Metoprolol Succinate Er 25 Mg Tab.Er.24h) 25 mg PO DAILY [facility]; Protocol Last Admin: 02/13/25 07:30 Dose: 25 mg Documented By: PRASANNA Multivitamins/Vitamin C (Multivitamin Tablet) 1 tab PO DAILY [facility] Last Admin: 02/13/25 07:30 Dose: 1 tab Documented By: PRASANNA Oxcarbazepine (Oxcarbazepine 300 Mg Tablet) 600 mg PO BID [facility] Last Admin: 02/13/25 07:30 Dose: 600 mg Documented By: PRASANNA Prochlorperazine Maleate (Prochlorperazine Maleate 5 Mg Tablet) 5 mg PO BID [facility] Last Admin: 02/13/25 07:30 Dose: 5 mg Documented By: PRASANNA Ropinirole HCl (Ropinirole Hcl 2 Mg Tablet) 2 mg PO BEDTIME [facility] Last Admin: 02/12/25 20:08 Dose: 2 mg Documented By: SAVANAH Sodium Chloride (0.9 % Sodium Chloride Flush 3 Ml Syringe) 3 ml IVFLUSH QSHIFT [facility] Last Admin: 02/13/25 07:36 Dose: 3 ml Documented By: PRASANNA Sodium Polystyrene Sulfonate (Sodium Polystyrene Sulfon/Sorb 15 Gm/60 Ml Oral.Susp) 15 gm PO SUTUTHSA [facility] Last Admin: 02/12/25 09:15 Dose: 15 gm Documented By: DRU Trazodone HCl (Trazodone Hcl 50 Mg Tablet) 50 mg PO BEDTIME [facility] Last Admin: 02/12/25 20:08 Dose: 50 mg Documented By: SAVANAH Labs 02/07/25 05:39 02/07/25 05:39 Assessment and Plan (1) ESRD (end stage renal disease) on dialysis: Status: Acute Plan d7 for 74yo M with ESRD on HD MWF, cardiomyopathy, HFrEF, AF, HTN, MCI, bipolar depression, COPD, HLD, HTN, and RYAN on CPAP admitted for HD/placement due to FTT/frequent falls ESRD on HD - HD MWF, Nephro following, Kayexelate TuThSa AF - no AC due to increased fall risk HF with mildly reduced EF, chronic - furosemide, lisinopril, metoprolol succinate HTN - amlodipine, lisinopril, metoprolol succinate mood disorder - clonazepam, oxcarbazepine, lamotrigine, trazodone FTT/frequent falls - plan STR then LTC VTE ppx - UFH dispo - STR then LTC In my clinical judgment, the patient requires continued inpatient hospitalization for the following reasons: placement Total time managing care of this patient today: 30 minutes. Quality Stroke Does the patient have a stroke diagnosis?: No VTE Prior VTE?: No VTE Risk Level:: Medical - moderate - high VTE Device Contraindication: Treatment Not Indicated VTE Drug Contraindication: N/A - Med Ordered
[2025-02-13 09:10] VITALS: PULSE 68; O2SAT 97
[2025-02-13 11:09] LABS: Glucose, Whole Blood 90 mg/dL (60-115)
--- NOTE | 2025-02-13 11:47 | P.PNNP_ITS ---
Subjective Subjective Date of Service: 02/14/25 Interval history: in HD today no complaints Physical Exam 2 Vital Signs: Vital Signs: Last Vital Signs Temp 97.4 F 02/13/25 16:00 Pulse 65 02/13/25 16:00 Resp 20 02/13/25 23:15 BP 122/56 L 02/13/25 16:00 Pulse Ox 97 02/13/25 16:00 O2 Del Method Room Air 02/13/25 16:00 BMI result Body Mass Index 20.9 Const: Other: Awake alert no acute distress Resp: Other: Clear to auscultation bilaterally no rales rhonchi or wheezes Cardio: Other: No S4; positive S1-S2; no S3 murmurs rubs or gallops GI: Other: Soft nontender nondistended normoactive bowel sounds Extrem: Other: No edema bilaterally Objective Data Labs 02/07/25 05:39 02/07/25 05:39 Labs: Laboratory Results - last 24 hr 02/13/25 11:05 POC Glucose 90 Procedures Date of Service Date of Service: 02/14/25 Assessment & Plan Assessment and plan (1) ESRD (end stage renal disease) on dialysis: Status: Acute Plan d6 for 74yo M with ESRD on HD MWF, cardiomyopathy, HFrEF, AF, HTN, MCI, bipolar depression, COPD, HLD, HTN, and RYAN on CPAP admitted for HD/placement due to FTT/frequent falls ESRD on HD - HD MWF ( [facility]) HyperK: controlled now K-binder as needed Nephrogenic Anmeia MBD of CKD REC: cont HD MWF, recehck terrie on Tue --draw at dialysis, D/C planning Time Spent With Patient Time: Total time managing care of this patient today ____ minutes. Progress Note: Quality Stroke Does the patient have a stroke diagnosis?: No
[2025-02-13 14:35] VITALS: BP 169/81; PULSE 654; RESP 16; TEMP 36.3; O2SAT 95
[2025-02-13 16:00] VITALS: BP 122/56; PULSE 65; RESP 18; TEMP 36.3; O2SAT 97
[2025-02-13 23:15] VITALS: RESP 20
[2025-02-14 07:46] VITALS: BP 149/69; PULSE 63; RESP 14; TEMP 36.6; O2SAT 94
[2025-02-14] MEDS: Lidocaine 4 % Patch ADH..PATCH 1 PATCH TRANSDERMA ×2 (08:58→08:59)
[2025-02-14] MEDS: Metoprolol Succinate ER 25 MG TAB.ER.24H PO (08:58)
[2025-02-14] MEDS: 0.9 % Sodium Chloride Flush 3 ML SYRINGE IVFLUSH ×3 (09:03→20:29)
--- NOTE | 2025-02-14 09:15 | P.PNIM_ITS ---
Subjective Subjective Date of Service: 02/14/25 Interval History: in HD today no complaints Review of Systems Review of Systems: Yes all other systems are reviewed and are negative Physical Exam 2 Vital Signs: Vital Signs: Last Vital Signs Temp 97.9 F 02/14/25 07:46 Pulse 63 02/14/25 07:46 Resp 14 02/14/25 07:46 BP 149/69 H 02/14/25 07:46 Pulse Ox 94 02/14/25 07:46 O2 Del Method Room Air 02/14/25 07:46 BMI result Body Mass Index 20.9 Const: Other: Awake alert no acute distress Resp: Other: Clear to auscultation bilaterally no rales rhonchi or wheezes Cardio: Other: No S4; positive S1-S2; no S3 murmurs rubs or gallops GI: Other: Soft nontender nondistended normoactive bowel sounds Extrem: Other: No edema bilaterally Objective Data Active Medications Acetaminophen (Acetaminophen 325 Mg Tablet) 650 mg PO Q6H PRN PRN Reason: Pain, Mild 1-3,fever,headache Last Admin: 02/13/25 07:30 Dose: 650 mg Documented By: PRASANNA Albuterol Sulfate (Albuterol Sulfate 90 Mcg 8 Gm Inhaler) 2 puff INHALE RQ6H PRN PRN Reason: Shortness Of Breath Or Wheezing Amlodipine Besylate (Amlodipine Besylate 5 Mg Tablet) 5 mg PO DAILY ON LICENSE OF [facility]; Protocol Last Admin: 02/14/25 08:58 Dose: 5 mg Documented By: PRASANNA Ascorbic Acid (Ascorbic Acid 500 Mg Tablet) 1,000 mg PO DAILY ON LICENSE OF [facility] Last Admin: 02/14/25 08:58 Dose: 1,000 mg Documented By: PRASANNA Calcium Carbonate (Calcium Carbonate 750 Mg Tab.Chew) 750 mg PO Q4H PRN PRN Reason: Heartburn Clonazepam (Clonazepam 1 Mg Tablet) 1 mg PO BEDTIME PRN PRN Reason: Anxiety Last Admin: 02/13/25 21:24 Dose: 1 mg Documented By: SAVANAH Cyanocobalamin (Cyanocobalamin (Vitamin B-12) 1,000 Mcg Tablet) 1,000 mcg PO DAILY ON LICENSE OF [facility] Last Admin: 02/14/25 08:58 Dose: 1,000 mcg Documented By: PRASANNA Docusate Sodium (Docusate Sodium 100 Mg Capsule) 100 mg PO BID ON LICENSE OF [facility] Last Admin: 02/14/25 09:02 Dose: Not Given Documented By: PRASANNA Non-Admin Reason: Patient Refused Furosemide (Furosemide 40 Mg Tablet) 80 mg PO SUTUTHSA ON LICENSE OF [facility]; Protocol Last Admin: 02/14/25 09:13 Dose: 80 mg Documented By: PRASANNA Heparin Sodium (Porcine) (Heparin Sodium,Porcine 5,000 Unit/Ml Vial) 5,000 unit SUBCUT Q12H ON LICENSE OF [facility] Last Admin: 02/14/25 09:03 Dose: Not Given Documented By: PRASANNA Non-Admin Reason: Patient Refused Lamotrigine (Lamotrigine 100 Mg Tablet) 100 mg PO DAILY ON LICENSE OF [facility] Last Admin: 02/14/25 08:58 Dose: 100 mg Documented By: PRASANNA Lidocaine (Lidocaine 4 % Patch Adh..Patch) 1 patch TRANSDERMA DAILY ON LICENSE OF [facility]; Protocol Last Admin: 02/14/25 08:58 Dose: 1 patch Documented By: PRASANNA Lidocaine (Lidocaine 4 % Patch Adh..Patch) 1 patch TRANSDERMA DAILY ON LICENSE OF [facility]; Protocol Last Admin: 02/14/25 08:59 Dose: 1 patch Documented By: PRASANNA Lisinopril (Lisinopril 20 Mg Tablet) 20 mg PO DAILY ON LICENSE OF [facility]; Protocol Last Admin: 02/14/25 08:58 Dose: 20 mg Documented By: PRASANNA Meclizine HCl (Meclizine Hcl 25 Mg Tablet) 25 mg PO BID PRN PRN Reason: dizziness Melatonin (Melatonin 3 Mg Tablet) 6 mg PO BEDTIME PRN PRN Reason: Insomnia Metoprolol Succinate (Metoprolol Succinate Er 25 Mg Tab.Er.24h) 25 mg PO DAILY ON LICENSE OF [facility]; Protocol Last Admin: 02/14/25 08:58 Dose: 25 mg Documented By: PRASANNA Multivitamins/Vitamin C (Multivitamin Tablet) 1 tab PO DAILY ON LICENSE OF [facility] Last Admin: 02/14/25 08:58 Dose: 1 tab Documented By: PRASANNA Oxcarbazepine (Oxcarbazepine 300 Mg Tablet) 600 mg PO BID ON LICENSE OF [facility] Last Admin: 02/14/25 08:58 Dose: 600 mg Documented By: PRASANNA Prochlorperazine Maleate (Prochlorperazine Maleate 5 Mg Tablet) 5 mg PO BID ON LICENSE OF [facility] Last Admin: 02/14/25 08:58 Dose: 5 mg Documented By: PRASANNA Ropinirole HCl (Ropinirole Hcl 2 Mg Tablet) 2 mg PO BEDTIME ON LICENSE OF [facility] Last Admin: 02/13/25 21:23 Dose: 2 mg Documented By: SAVANAH Sodium Chloride (0.9 % Sodium Chloride Flush 3 Ml Syringe) 3 ml IVFLUSH QSHIFT ON LICENSE OF [facility] Last Admin: 02/14/25 09:03 Dose: 3 ml Documented By: PRASANNA Sodium Polystyrene Sulfonate (Sodium Polystyrene Sulfon/Sorb 15 Gm/60 Ml Oral.Susp) 15 gm PO SUTUTHSA ON LICENSE OF [facility] Last Admin: 02/14/25 09:12 Dose: 15 gm Documented By: PRASANNA Trazodone HCl (Trazodone Hcl 50 Mg Tablet) 50 mg PO BEDTIME ON LICENSE OF [facility] Last Admin: 02/13/25 21:24 Dose: 50 mg Documented By: SAVANAH Labs 02/07/25 05:39 02/07/25 05:39 Labs: Laboratory Results - last 24 hr 02/13/25 11:05 POC Glucose 90 Assessment and Plan (1) ESRD (end stage renal disease) on dialysis: Status: Acute Plan d7 for 74yo M with ESRD on HD MWF, cardiomyopathy, HFrEF, AF, HTN, MCI, bipolar depression, COPD, HLD, HTN, and RYAN on CPAP admitted for HD/placement due to FTT/frequent falls ESRD on HD - HD MWF, Nephro following, Kayexelate TuThSa AF - no AC due to increased fall risk HF with mildly reduced EF, chronic - furosemide, lisinopril, metoprolol succinate HTN - amlodipine, lisinopril, metoprolol succinate mood disorder - clonazepam, oxcarbazepine, lamotrigine, trazodone FTT/frequent falls - plan STR then LTC VTE ppx - UFH dispo - STR then LTC In my clinical judgment, the patient requires continued inpatient hospitalization for the following reasons: placement Total time managing care of this patient today: 30 minutes. Quality Stroke Does the patient have a stroke diagnosis?: No VTE Prior VTE?: No VTE Risk Level:: Medical - moderate - high VTE Device Contraindication: Treatment Not Indicated VTE Drug Contraindication: N/A - Med Ordered
--- NOTE | 2025-02-14 12:48 | P.PNNP_ITS ---
Subjective Subjective Date of Service: 02/14/25 Interval history: no complaints Physical Exam 2 Exam: Exam: cvs: s1s2 RS; cta ABd; soft Vital Signs: Vital Signs: Last Vital Signs Temp 97.9 F 02/14/25 07:46 Pulse 63 02/14/25 07:46 Resp 14 02/14/25 07:46 BP 149/69 H 02/14/25 07:46 Pulse Ox 94 02/14/25 07:46 O2 Del Method Room Air 02/14/25 07:46 BMI result Body Mass Index 20.9 Objective Data Labs 02/07/25 05:39 02/07/25 05:39 Procedures Date of Service Date of Service: 02/14/25 Assessment & Plan Assessment and plan (1) ESRD (end stage renal disease) on dialysis: Status: Acute Plan 74yo M with ESRD on HD MWF, cardiomyopathy, HFrEF, AF, HTN, MCI, bipolar depression, COPD, HLD, HTN, and RYAN on CPAP admitted for HD/placement due to FTT/frequent falls ESRD on HD - HD MWF ( [facility]) HyperK: controlled now K-binder as needed Nephrogenic Annamaria HALL of CKD REC: cont HD MWF, recehck lytes on Tue --draw at dialysis, D/C planning Time Spent With Patient Time: Total time managing care of this patient today ____ minutes. Progress Note: Quality Stroke Does the patient have a stroke diagnosis?: No
[2025-02-14 15:53] VITALS: BP 128/61; PULSE 66; RESP 14; TEMP 36.8; O2SAT 97
[2025-02-14 23:42] VITALS: BP 118/59; PULSE 65; RESP 18; TEMP 36.6; O2SAT 97
--- NOTE | 2025-02-15 07:15 | PC.NURSE ---
Pt. is angry this morning because bed alarm went off, stating, don't tie me down, I can move around fine, that alarms are driving him crazy and he didn't want them. Alarms turned off, education provided about safety, clutter cleared, call perez within reach.
[2025-02-15 07:26] VITALS: BP 130/70; PULSE 86; RESP 16; TEMP 36.4; O2SAT 94
[2025-02-15] MEDS: 0.9 % Sodium Chloride Flush 3 ML SYRINGE IVFLUSH ×2 (09:05→22:32)
[2025-02-15 09:07] VITALS: BP 130/60; PULSE 65
[2025-02-15] MEDS: Metoprolol Succinate ER 25 MG TAB.ER.24H PO (09:07)
[2025-02-15] MEDS: Lidocaine 4 % Patch ADH..PATCH 1 PATCH TRANSDERMA ×2 (09:12)
--- NOTE | 2025-02-15 14:15 | MHC.CM.PN ---
bed search continuies no accepting facilities at [facility] time
[2025-02-15 17:47] VITALS: BP 157/72; PULSE 73; RESP 17; TEMP 36.4; O2SAT 96
[2025-02-16 07:41] VITALS: BP 137/73; PULSE 75; RESP 18; TEMP 36.8; O2SAT 99
[2025-02-16] MEDS: Lidocaine 4 % Patch ADH..PATCH 1 PATCH TRANSDERMA ×2 (08:03)
[2025-02-16] MEDS: Metoprolol Succinate ER 25 MG TAB.ER.24H PO (08:04)
[2025-02-16] MEDS: 0.9 % Sodium Chloride Flush 3 ML SYRINGE IVFLUSH ×2 (08:14→19:51)
--- NOTE | 2025-02-16 08:52 | P.PNNP_ITS ---
Subjective Subjective Date of Service: 02/15/25 Interval history: no complaints Physical Exam 2 Vital Signs: Vital Signs: Last Vital Signs Temp 98.3 F 02/16/25 07:41 Pulse 75 02/16/25 07:41 Resp 18 02/16/25 07:41 BP 137/73 02/16/25 07:41 Pulse Ox 99 02/16/25 07:41 O2 Del Method Room Air 02/16/25 07:41 BMI result Body Mass Index 20.9 Const: Other: Awake alert no acute distress Resp: Other: Clear to auscultation bilaterally no rales rhonchi or wheezes Cardio: Other: No S4; positive S1-S2; no S3 murmurs rubs or gallops GI: Other: Soft nontender nondistended normoactive bowel sounds Extrem: Other: No edema bilaterally Objective Data Labs 02/07/25 05:39 02/07/25 05:39 Procedures Date of Service Date of Service: 02/16/25 Assessment & Plan Assessment and plan (1) ESRD (end stage renal disease) on dialysis: Status: Acute Plan 74yo M with ESRD on HD MWF, cardiomyopathy, HFrEF, AF, HTN, MCI, bipolar depression, COPD, HLD, HTN, and RYAN on CPAP admitted for HD/placement due to FTT/frequent falls ESRD on HD - HD MWF ( [facility]) HyperK: controlled now K-binder as needed Nephrogenic Anmeia MBD of CKD REC: cont HD MWF, recehck lytes on Mon if not drawn today --draw at dialysis, D/C planning Time Spent With Patient Time: Total time managing care of this patient today ____ minutes. Progress Note: Quality Stroke Does the patient have a stroke diagnosis?: No
--- NOTE | 2025-02-16 09:01 | P.PNIM_ITS ---
Subjective Subjective Date of Service: 02/16/25 Interval History: in HD today no complaints Review of Systems Review of Systems: Yes all other systems are reviewed and are negative Physical Exam 2 Vital Signs: Vital Signs: Last Vital Signs Temp 98.3 F 02/16/25 07:41 Pulse 75 02/16/25 07:41 Resp 18 02/16/25 07:41 BP 137/73 02/16/25 07:41 Pulse Ox 99 02/16/25 07:41 O2 Del Method Room Air 02/16/25 07:41 BMI result Body Mass Index 20.9 Const: Other: Awake alert no acute distress Resp: Other: Clear to auscultation bilaterally no rales rhonchi or wheezes Cardio: Other: No S4; positive S1-S2; no S3 murmurs rubs or gallops GI: Other: Soft nontender nondistended normoactive bowel sounds Extrem: Other: No edema bilaterally Objective Data Active Medications Acetaminophen (Acetaminophen 325 Mg Tablet) 650 mg PO Q6H PRN PRN Reason: Pain, Mild 1-3,fever,headache Last Admin: 02/16/25 08:04 Dose: 650 mg Documented By: MYLES Albuterol Sulfate (Albuterol Sulfate 90 Mcg 8 Gm Inhaler) 2 puff INHALE RQ6H PRN PRN Reason: Shortness Of Breath Or Wheezing Amlodipine Besylate (Amlodipine Besylate 5 Mg Tablet) 5 mg PO DAILY [facility]; Protocol Last Admin: 02/16/25 08:04 Dose: 5 mg Documented By: MYLES Ascorbic Acid (Ascorbic Acid 500 Mg Tablet) 1,000 mg PO DAILY [facility] Last Admin: 02/16/25 08:04 Dose: 1,000 mg Documented By: MYLES Calcium Carbonate (Calcium Carbonate 750 Mg Tab.Chew) 750 mg PO Q4H PRN PRN Reason: Heartburn Clonazepam (Clonazepam 1 Mg Tablet) 1 mg PO BEDTIME PRN PRN Reason: Anxiety Last Admin: 02/15/25 22:30 Dose: 1 mg Documented By: KARL Cyanocobalamin (Cyanocobalamin (Vitamin B-12) 1,000 Mcg Tablet) 1,000 mcg PO DAILY [facility] Last Admin: 02/16/25 08:04 Dose: 1,000 mcg Documented By: MYLES Docusate Sodium (Docusate Sodium 100 Mg Capsule) 100 mg PO BID [facility] Last Admin: 02/16/25 08:10 Dose: Not Given Documented By: MYLES Non-Admin Reason: Patient Refused Furosemide (Furosemide 40 Mg Tablet) 80 mg PO SUTUTHSA [facility]; Protocol Last Admin: 02/16/25 08:13 Dose: 80 mg Documented By: MYLES Heparin Sodium (Porcine) (Heparin Sodium,Porcine 5,000 Unit/Ml Vial) 5,000 unit SUBCUT Q12H [facility] Last Admin: 02/15/25 22:32 Dose: Not Given Documented By: KARL Non-Admin Reason: Patient Refused Lamotrigine (Lamotrigine 100 Mg Tablet) 100 mg PO DAILY [facility] Last Admin: 02/16/25 08:04 Dose: 100 mg Documented By: MYLES Lidocaine (Lidocaine 4 % Patch Adh..Patch) 1 patch TRANSDERMA DAILY [facility]; Protocol Last Admin: 02/16/25 08:03 Dose: 1 patch Documented By: MYLES Lidocaine (Lidocaine 4 % Patch Adh..Patch) 1 patch TRANSDERMA DAILY [facility]; Protocol Last Admin: 02/16/25 08:03 Dose: 1 patch Documented By: MYLES Lisinopril (Lisinopril 20 Mg Tablet) 20 mg PO DAILY [facility]; Protocol Last Admin: 02/16/25 08:04 Dose: 20 mg Documented By: MYLES Meclizine HCl (Meclizine Hcl 25 Mg Tablet) 25 mg PO BID PRN PRN Reason: dizziness Melatonin (Melatonin 3 Mg Tablet) 6 mg PO BEDTIME PRN PRN Reason: Insomnia Metoprolol Succinate (Metoprolol Succinate Er 25 Mg Tab.Er.24h) 25 mg PO DAILY [facility]; Protocol Last Admin: 02/16/25 08:04 Dose: 25 mg Documented By: MYLES Multivitamins/Vitamin C (Multivitamin Tablet) 1 tab PO DAILY [facility] Last Admin: 02/16/25 08:04 Dose: 1 tab Documented By: MYLES Oxcarbazepine (Oxcarbazepine 300 Mg Tablet) 600 mg PO BID [facility] Last Admin: 02/16/25 08:04 Dose: 600 mg Documented By: MYLES Prochlorperazine Maleate (Prochlorperazine Maleate 5 Mg Tablet) 5 mg PO BID [facility] Last Admin: 02/16/25 08:04 Dose: 5 mg Documented By: MYLES Ropinirole HCl (Ropinirole Hcl 2 Mg Tablet) 2 mg PO BEDTIME [facility] Last Admin: 02/15/25 22:29 Dose: 2 mg Documented By: KARL Sodium Chloride (0.9 % Sodium Chloride Flush 3 Ml Syringe) 3 ml IVFLUSH QSHIFT [facility] Last Admin: 02/16/25 08:14 Dose: 3 ml Documented By: MYLES Sodium Polystyrene Sulfonate (Sodium Polystyrene Sulfon/Sorb 15 Gm/60 Ml Oral.Susp) 15 gm PO SUTUTHSA [facility] Last Admin: 02/14/25 09:12 Dose: 15 gm Documented By: PRASANNA Trazodone HCl (Trazodone Hcl 50 Mg Tablet) 50 mg PO BEDTIME [facility] Last Admin: 02/15/25 22:31 Dose: 50 mg Documented By: KARL Labs 02/07/25 05:39 02/07/25 05:39 Assessment and Plan (1) ESRD (end stage renal disease) on dialysis: Status: Acute Plan d7 for 74yo M with ESRD on HD MWF, cardiomyopathy, HFrEF, AF, HTN, MCI, bipolar depression, COPD, HLD, HTN, and RYAN on CPAP admitted for HD/placement due to FTT/frequent falls ESRD on HD - HD MWF, Nephro following, Kayexelate TuThSa AF - no AC due to increased fall risk HF with mildly reduced EF, chronic - furosemide, lisinopril, metoprolol succinate HTN - amlodipine, lisinopril, metoprolol succinate mood disorder - clonazepam, oxcarbazepine, lamotrigine, trazodone FTT/frequent falls - plan STR then LTC VTE ppx - UFH dispo - STR then LTC In my clinical judgment, the patient requires continued inpatient hospitalization for the following reasons: placement Total time managing care of this patient today: 30 minutes. Quality Stroke Does the patient have a stroke diagnosis?: No VTE Prior VTE?: No VTE Risk Level:: Medical - moderate - high VTE Device Contraindication: Treatment Not Indicated VTE Drug Contraindication: N/A - Med Ordered
[2025-02-16 16:00] VITALS: BP 111/59; PULSE 70; RESP 14; TEMP 37.1; O2SAT 96
[2025-02-16 18:45] VITALS: BP 124/58; PULSE 63; RESP 16; TEMP 36.8; O2SAT 97
[2025-02-16 23:51] VITALS: BP 136/72; PULSE 56; RESP 18; TEMP 36.2; O2SAT 97
[2025-02-17 06:06] LABS: Hematocrit 29.4 % (42.0-52.0); Hemoglobin 10.1 g/dl (14.0-18.0); Mean Corpuscular HGB Conc 34.4 g/dl (31.0-36.0); Mean Corpuscular Hemoglobin 32.2 pg (27.0-33.0); Mean Corpuscular Volume 93.6 fL (80.0-98.0); NRBC Abs Auto 0.000 X10*3/uL (0.0-0.012); NRBC Pct Auto 0.0 /100WBC (0.0-0.2); Platelet Count 224 X10*3/uL (160-400); Red Blood Count 3.14 X10*6/uL (4.60-5.80); White Blood Count 4.9 X10*3/uL (4.8-10.8)
[2025-02-17 06:23] LABS: Anion Gap 19 (12-20); Blood Urea Nitrogen 46 mg/dL (9-16); Calcium 8.6 mg/dL (8.4-10.2); Carbon Dioxide 27 mmol/L (22-29); Chloride 100 mmol/L (96-108); Creatinine Clr Calc Pharmacy 8.8; Estimated Glomerular Filt Rate 8; Potassium 3.6 mmol/L (3.3-5.1); Sodium 142 mmol/L (135-145)
[2025-02-17 07:29] VITALS: BP 132/61; PULSE 70; RESP 14; TEMP 36.6; O2SAT 95
[2025-02-17] MEDS: Metoprolol Succinate ER 25 MG TAB.ER.24H PO (07:47)
[2025-02-17] MEDS: Lidocaine 4 % Patch ADH..PATCH 1 PATCH TRANSDERMA ×2 (07:48→07:49)
[2025-02-17] MEDS: 0.9 % Sodium Chloride Flush 3 ML SYRINGE IVFLUSH ×2 (07:58→21:42)
--- NOTE | 2025-02-17 08:12 | HO.PM.IMPN ---
Subjective Subjective Date of Service: 02/17/25 Interval History: no complaints Review of Systems Review of Systems: Yes all other systems are reviewed and are negative Physical Exam Vital Signs: Vital Signs: Last Vital Signs Temp 97.9 F 02/17/25 07:29 Pulse 70 02/17/25 07:29 Resp 14 02/17/25 07:29 BP 132/61 02/17/25 07:29 Pulse Ox 95 02/17/25 07:29 O2 Del Method Room Air 02/17/25 07:29 BMI result Body Mass Index 20.9 Const: Other: Awake alert no acute distress Resp: Other: Clear to auscultation bilaterally no rales rhonchi or wheezes Cardio: Other: No S4; positive S1-S2; no S3 murmurs rubs or gallops GI: Other: Soft nontender nondistended normoactive bowel sounds Extrem: Other: No edema bilaterally Objective Data Active Medications Acetaminophen (Acetaminophen 325 Mg Tablet) 650 mg PO Q6H PRN PRN Reason: Pain, Mild 1-3,fever,headache Last Admin: 02/17/25 07:51 Dose: 650 mg Documented By: MYLES Albuterol Sulfate (Albuterol Sulfate 90 Mcg 8 Gm Inhaler) 2 puff INHALE RQ6H PRN PRN Reason: Shortness Of Breath Or Wheezing Amlodipine Besylate (Amlodipine Besylate 5 Mg Tablet) 5 mg PO DAILY [facility]; Protocol Last Admin: 02/17/25 07:47 Dose: 5 mg Documented By: MYLES Ascorbic Acid (Ascorbic Acid 500 Mg Tablet) 1,000 mg PO DAILY [facility] Last Admin: 02/17/25 07:47 Dose: 1,000 mg Documented By: MYLES Calcium Carbonate (Calcium Carbonate 750 Mg Tab.Chew) 750 mg PO Q4H PRN PRN Reason: Heartburn Clonazepam (Clonazepam 1 Mg Tablet) 1 mg PO BEDTIME PRN PRN Reason: Anxiety Last Admin: 02/16/25 19:47 Dose: 1 mg Documented By: TANVI Cyanocobalamin (Cyanocobalamin (Vitamin B-12) 1,000 Mcg Tablet) 1,000 mcg PO DAILY [facility] Last Admin: 02/17/25 07:48 Dose: 1,000 mcg Documented By: MYLES Docusate Sodium (Docusate Sodium 100 Mg Capsule) 100 mg PO BID [facility] Last Admin: 02/17/25 07:45 Dose: Not Given Documented By: MYLES Non-Admin Reason: Patient Refused Furosemide (Furosemide 40 Mg Tablet) 80 mg PO SUTUTHSA [facility]; Protocol Last Admin: 02/17/25 07:51 Dose: 80 mg Documented By: MYLES Heparin Sodium (Porcine) (Heparin Sodium,Porcine 5,000 Unit/Ml Vial) 5,000 unit SUBCUT Q12H [facility] Last Admin: 02/16/25 21:05 Dose: Not Given Documented By: TANVI Non-Admin Reason: Patient Refused Lamotrigine (Lamotrigine 100 Mg Tablet) 100 mg PO DAILY [facility] Last Admin: 02/17/25 07:47 Dose: 100 mg Documented By: MYLES Lidocaine (Lidocaine 4 % Patch Adh..Patch) 1 patch TRANSDERMA DAILY [facility]; Protocol Last Admin: 02/17/25 07:49 Dose: 1 patch Documented By: MYLES Lidocaine (Lidocaine 4 % Patch Adh..Patch) 1 patch TRANSDERMA DAILY [facility]; Protocol Last Admin: 02/17/25 07:48 Dose: 1 patch Documented By: MYLES Lisinopril (Lisinopril 20 Mg Tablet) 20 mg PO DAILY [facility]; Protocol Last Admin: 02/17/25 07:48 Dose: 20 mg Documented By: MYLES Meclizine HCl (Meclizine Hcl 25 Mg Tablet) 25 mg PO BID PRN PRN Reason: dizziness Melatonin (Melatonin 3 Mg Tablet) 6 mg PO BEDTIME PRN PRN Reason: Insomnia Metoprolol Succinate (Metoprolol Succinate Er 25 Mg Tab.Er.24h) 25 mg PO DAILY [facility]; Protocol Last Admin: 02/17/25 07:47 Dose: 25 mg Documented By: MYLES Multivitamins/Vitamin C (Multivitamin Tablet) 1 tab PO DAILY [facility] Last Admin: 02/17/25 07:47 Dose: 1 tab Documented By: MYLES Oxcarbazepine (Oxcarbazepine 300 Mg Tablet) 600 mg PO BID [facility] Last Admin: 02/17/25 07:48 Dose: 600 mg Documented By: MYLES Prochlorperazine Maleate (Prochlorperazine Maleate 5 Mg Tablet) 5 mg PO BID [facility] Last Admin: 02/17/25 07:47 Dose: 5 mg Documented By: MYLES Ropinirole HCl (Ropinirole Hcl 2 Mg Tablet) 2 mg PO BEDTIME [facility] Last Admin: 02/16/25 19:47 Dose: 2 mg Documented By: TANVI Sodium Chloride (0.9 % Sodium Chloride Flush 3 Ml Syringe) 3 ml IVFLUSH QSHIFT [facility] Last Admin: 02/17/25 07:58 Dose: 3 ml Documented By: MYLES Sodium Polystyrene Sulfonate (Sodium Polystyrene Sulfon/Sorb 15 Gm/60 Ml Oral.Susp) 15 gm PO SUTUTHSA [facility] Last Admin: 02/16/25 10:20 Dose: 15 gm Documented By: MYLES Trazodone HCl (Trazodone Hcl 50 Mg Tablet) 50 mg PO BEDTIME [facility] Last Admin: 02/16/25 19:47 Dose: 50 mg Documented By: TANVI Labs 02/17/25 05:32 02/17/25 05:32 Labs: Laboratory Results - last 24 hr 02/17/25 05:32 MCV 93.6 MCH 32.2 MCHC 34.4 RDW 13.6 Plt Count 224 MPV 9.4 Absolute Nucleated RBC 0.000 Nucleated RBC % (auto) 0.0 Anion Gap 19 Estim Creat Clear Calc 8.8 Estimated GFR 8 Random Glucose 90 Calcium 8.6 Assessment and Plan (1) ESRD (end stage renal disease) on dialysis: Status: Acute Plan d7 for 74yo M with ESRD on HD MWF, cardiomyopathy, HFrEF, AF, HTN, MCI, bipolar depression, COPD, HLD, HTN, and RYAN on CPAP admitted for HD/placement due to FTT/frequent falls ESRD on HD - HD MWF, Nephro following, Kayexelate TuThSa AF - no AC due to increased fall risk HF with mildly reduced EF, chronic - furosemide, lisinopril, metoprolol succinate HTN - amlodipine, lisinopril, metoprolol succinate mood disorder - clonazepam, oxcarbazepine, lamotrigine, trazodone FTT/frequent falls - plan STR then LTC VTE ppx - UFH dispo - STR then LTC In my clinical judgment, the patient requires continued inpatient hospitalization for the following reasons: placement Total time managing care of this patient today: 30 minutes. Quality Stroke Does the patient have a stroke diagnosis?: No VTE Prior VTE?: No VTE Risk Level:: Medical - moderate - high VTE Device Contraindication: Treatment Not Indicated VTE Drug Contraindication: N/A - Med Ordered
[2025-02-17 15:56] VITALS: BP 152/68; PULSE 64; RESP 14; TEMP 36.7; O2SAT 100
[2025-02-17 19:38] VITALS: BP 122/60; PULSE 68; RESP 18; TEMP 37; O2SAT 96
[2025-02-17 23:45] VITALS: BP 126/58; PULSE 61; RESP 16; TEMP 36.8; O2SAT 99
[2025-02-18 07:21] VITALS: BP 108/59; PULSE 64; RESP 16; TEMP 36; O2SAT 96
--- NOTE | 2025-02-18 08:27 | HO.PM.IMPN ---
Subjective Subjective Date of Service: 02/18/25 Interval History: no complaints Review of Systems Review of Systems: Yes all other systems are reviewed and are negative Physical Exam Vital Signs: Vital Signs: Last Vital Signs Temp 96.8 F 02/18/25 07:21 Pulse 64 02/18/25 07:21 Resp 16 02/18/25 07:21 BP 108/59 L 02/18/25 07:21 Pulse Ox 96 02/18/25 07:21 O2 Del Method Room Air 02/18/25 07:21 BMI result Body Mass Index 20.9 Const: Other: Awake alert no acute distress Resp: Other: Clear to auscultation bilaterally no rales rhonchi or wheezes Cardio: Other: No S4; positive S1-S2; no S3 murmurs rubs or gallops GI: Other: Soft nontender nondistended normoactive bowel sounds Extrem: Other: No edema bilaterally Objective Data Active Medications Acetaminophen (Acetaminophen 325 Mg Tablet) 650 mg PO Q6H PRN PRN Reason: Pain, Mild 1-3,fever,headache Last Admin: 02/17/25 07:51 Dose: 650 mg Documented By: MYLES Albuterol Sulfate (Albuterol Sulfate 90 Mcg 8 Gm Inhaler) 2 puff INHALE RQ6H PRN PRN Reason: Shortness Of Breath Or Wheezing Amlodipine Besylate (Amlodipine Besylate 5 Mg Tablet) 5 mg PO DAILY [facility]; Protocol Last Admin: 02/17/25 07:47 Dose: 5 mg Documented By: MYLES Ascorbic Acid (Ascorbic Acid 500 Mg Tablet) 1,000 mg PO DAILY [facility] Last Admin: 02/17/25 07:47 Dose: 1,000 mg Documented By: MYLES Calcium Carbonate (Calcium Carbonate 750 Mg Tab.Chew) 750 mg PO Q4H PRN PRN Reason: Heartburn Clonazepam (Clonazepam 1 Mg Tablet) 1 mg PO BEDTIME PRN PRN Reason: Anxiety Last Admin: 02/17/25 19:38 Dose: 1 mg Documented By: CAESAR Cyanocobalamin (Cyanocobalamin (Vitamin B-12) 1,000 Mcg Tablet) 1,000 mcg PO DAILY [facility] Last Admin: 02/17/25 07:48 Dose: 1,000 mcg Documented By: MYLES Docusate Sodium (Docusate Sodium 100 Mg Capsule) 100 mg PO BID [facility] Last Admin: 02/17/25 19:41 Dose: Not Given Documented By: CAESAR Non-Admin Reason: Patient Refused Furosemide (Furosemide 40 Mg Tablet) 80 mg PO SUTUTHSA [facility]; Protocol Last Admin: 02/17/25 07:51 Dose: 80 mg Documented By: MYLES Heparin Sodium (Porcine) (Heparin Sodium,Porcine 5,000 Unit/Ml Vial) 5,000 unit SUBCUT Q12H [facility] Last Admin: 02/17/25 21:28 Dose: Not Given Documented By: CEASAR Non-Admin Reason: Patient Refused Lamotrigine (Lamotrigine 100 Mg Tablet) 100 mg PO DAILY [facility] Last Admin: 02/17/25 07:47 Dose: 100 mg Documented By: MYLES Lidocaine (Lidocaine 4 % Patch Adh..Patch) 1 patch TRANSDERMA DAILY [facility]; Protocol Last Admin: 02/17/25 07:49 Dose: 1 patch Documented By: MYLES Lidocaine (Lidocaine 4 % Patch Adh..Patch) 1 patch TRANSDERMA DAILY [facility]; Protocol Last Admin: 02/17/25 07:48 Dose: 1 patch Documented By: MYLES Lisinopril (Lisinopril 20 Mg Tablet) 20 mg PO DAILY [facility]; Protocol Last Admin: 02/17/25 07:48 Dose: 20 mg Documented By: MYLES Meclizine HCl (Meclizine Hcl 25 Mg Tablet) 25 mg PO BID PRN PRN Reason: dizziness Melatonin (Melatonin 3 Mg Tablet) 6 mg PO BEDTIME PRN PRN Reason: Insomnia Last Admin: 02/17/25 19:38 Dose: 6 mg Documented By: CAESAR Metoprolol Succinate (Metoprolol Succinate Er 25 Mg Tab.Er.24h) 25 mg PO DAILY [facility]; Protocol Last Admin: 02/17/25 07:47 Dose: 25 mg Documented By: MYLES Multivitamins/Vitamin C (Multivitamin Tablet) 1 tab PO DAILY [facility] Last Admin: 02/17/25 07:47 Dose: 1 tab Documented By: MYLES Oxcarbazepine (Oxcarbazepine 300 Mg Tablet) 600 mg PO BID [facility] Last Admin: 02/17/25 19:38 Dose: 600 mg Documented By: CAESAR Prochlorperazine Maleate (Prochlorperazine Maleate 5 Mg Tablet) 5 mg PO BID [facility] Last Admin: 02/17/25 19:39 Dose: 5 mg Documented By: CAESAR Ropinirole HCl (Ropinirole Hcl 2 Mg Tablet) 2 mg PO BEDTIME [facility] Last Admin: 02/17/25 19:39 Dose: 2 mg Documented By: CAESAR Sodium Chloride (0.9 % Sodium Chloride Flush 3 Ml Syringe) 3 ml IVFLUSH QSHIFT [facility] Last Admin: 02/17/25 21:42 Dose: 3 ml Documented By: CAESAR Sodium Polystyrene Sulfonate (Sodium Polystyrene Sulfon/Sorb 15 Gm/60 Ml Oral.Susp) 15 gm PO SUTUTHSA [facility] Last Admin: 02/17/25 12:40 Dose: 15 gm Documented By: MYLES Trazodone HCl (Trazodone Hcl 50 Mg Tablet) 50 mg PO BEDTIME [facility] Last Admin: 02/17/25 19:43 Dose: 50 mg Documented By: CAESAR Labs 02/17/25 05:32 02/17/25 05:32 Assessment and Plan (1) ESRD (end stage renal disease) on dialysis: Status: Acute Plan d7 for 74yo M with ESRD on HD MWF, cardiomyopathy, HFrEF, AF, HTN, MCI, bipolar depression, COPD, HLD, HTN, and RYAN on CPAP admitted for HD/placement due to FTT/frequent falls ESRD on HD - HD MWF, Nephro following, Kayexelate TuThSa AF - no AC due to increased fall risk HF with mildly reduced EF, chronic - furosemide, lisinopril, metoprolol succinate HTN - amlodipine, lisinopril, metoprolol succinate mood disorder - clonazepam, oxcarbazepine, lamotrigine, trazodone FTT/frequent falls - plan STR then LTC VTE ppx - UFH dispo - STR then LTC In my clinical judgment, the patient requires continued inpatient hospitalization for the following reasons: placement Total time managing care of this patient today: 30 minutes. Quality Stroke Does the patient have a stroke diagnosis?: No VTE Prior VTE?: No VTE Risk Level:: Medical - moderate - high VTE Device Contraindication: Treatment Not Indicated VTE Drug Contraindication: N/A - Med Ordered
[2025-02-18] MEDS: Metoprolol Succinate ER 25 MG TAB.ER.24H PO (13:06)
[2025-02-18 13:07] VITALS: BP 136/65; PULSE 62; RESP 16; TEMP 36.9; O2SAT 98
[2025-02-18] MEDS: Lidocaine 4 % Patch ADH..PATCH 1 PATCH TRANSDERMA ×2 (13:07→13:08)
[2025-02-18] MEDS: 0.9 % Sodium Chloride Flush 3 ML SYRINGE IVFLUSH ×3 (13:10→21:44)
[2025-02-18 15:09] VITALS: BP 112/54; PULSE 69; RESP 16; TEMP 36.8; O2SAT 97
--- NOTE | 2025-02-18 15:33 | MHC.CM.PN ---
bed search continues for placeement
--- NOTE | 2025-02-18 18:48 | PC.NURSE ---
Pt refusing bed and chair alarm. States he isn't going to be tied down. Becoming extremely upset over the alarms. Pt agreeable to camera in room and encouraged to use call perez when needing to get OOB
[2025-02-18 19:49] VITALS: BP 107/56; PULSE 67; RESP 18; TEMP 37.2; O2SAT 96
--- NOTE | 2025-02-18 22:16 | P.PNNP_ITS ---
Subjective Subjective Date of Service: 02/18/25 Interval history: no complaints seen and examined on dialysis,,events noted Physical Exam 2 Vital Signs: Vital Signs: Last Vital Signs Temp 99.0 F 02/18/25 19:49 Pulse 67 02/18/25 19:49 Resp 18 02/18/25 19:49 BP 107/56 L 02/18/25 19:49 Pulse Ox 96 02/18/25 19:49 O2 Del Method Room Air 02/18/25 19:49 BMI result Body Mass Index 20.9 Const: Other: Awake alert no acute distress Resp: Other: Clear to auscultation bilaterally no rales rhonchi or wheezes Cardio: Other: No S4; positive S1-S2; no S3 murmurs rubs or gallops GI: Other: Soft nontender nondistended normoactive bowel sounds Extrem: Other: No edema bilaterally Objective Data Labs 02/17/25 05:32 02/17/25 05:32 Procedures Date of Service Date of Service: 02/18/25 Assessment & Plan Assessment and plan (1) ESRD (end stage renal disease) on dialysis: Status: Acute Plan 74yo M with ESRD on HD MWF, cardiomyopathy, HFrEF, AF, HTN, MCI, bipolar depression, COPD, HLD, HTN, and RYAN on CPAP admitted for HD/placement due to FTT/frequent falls ESRD on HD - HD MWF ( [facility]) HyperK: controlled now K-binder as needed Nephrogenic Anmeia MBD of CKD REC: cont HD MWF, D/C planning Time Spent With Patient Time: Total time managing care of this patient today ____ minutes. Progress Note: Quality Stroke Does the patient have a stroke diagnosis?: No
[2025-02-19 07:23] VITALS: BP 128/57; PULSE 66; RESP 18; TEMP 36.3; O2SAT 99
[2025-02-19] MEDS: Lidocaine 4 % Patch ADH..PATCH 1 PATCH TRANSDERMA ×2 (08:53→08:57)
[2025-02-19] MEDS: 0.9 % Sodium Chloride Flush 3 ML SYRINGE IVFLUSH ×3 (08:58→23:57)
--- NOTE | 2025-02-19 09:12 | HO.PM.IMPN ---
Subjective Subjective Date of Service: 02/19/25 Interval History: no complaints Review of Systems Review of Systems: Yes all other systems are reviewed and are negative Physical Exam Vital Signs: Vital Signs: Last Vital Signs Temp 97.4 F 02/19/25 07:23 Pulse 66 02/19/25 07:23 Resp 18 02/19/25 07:23 BP 128/57 L 02/19/25 07:23 Pulse Ox 99 02/19/25 07:23 O2 Del Method Room Air 02/19/25 07:23 BMI result Body Mass Index 20.9 Const: Other: Awake alert no acute distress Resp: Other: Clear to auscultation bilaterally no rales rhonchi or wheezes Cardio: Other: No S4; positive S1-S2; no S3 murmurs rubs or gallops GI: Other: Soft nontender nondistended normoactive bowel sounds Extrem: Other: No edema bilaterally Objective Data Active Medications Acetaminophen (Acetaminophen 325 Mg Tablet) 650 mg PO Q6H PRN PRN Reason: Pain, Mild 1-3,fever,headache Last Admin: 02/17/25 07:51 Dose: 650 mg Documented By: MYLES Albuterol Sulfate (Albuterol Sulfate 90 Mcg 8 Gm Inhaler) 2 puff INHALE RQ6H PRN PRN Reason: Shortness Of Breath Or Wheezing Amlodipine Besylate (Amlodipine Besylate 5 Mg Tablet) 5 mg PO DAILY [facility]; Protocol Last Admin: 02/19/25 08:52 Dose: 5 mg Documented By: PB Ascorbic Acid (Ascorbic Acid 500 Mg Tablet) 1,000 mg PO DAILY [facility] Last Admin: 02/19/25 08:53 Dose: 1,000 mg Documented By: PB Calcium Carbonate (Calcium Carbonate 750 Mg Tab.Chew) 750 mg PO Q4H PRN PRN Reason: Heartburn Clonazepam (Clonazepam 1 Mg Tablet) 1 mg PO BEDTIME PRN PRN Reason: Anxiety Last Admin: 02/18/25 20:16 Dose: 1 mg Documented By: CAESAR Cyanocobalamin (Cyanocobalamin (Vitamin B-12) 1,000 Mcg Tablet) 1,000 mcg PO DAILY [facility] Last Admin: 02/19/25 08:52 Dose: 1,000 mcg Documented By: PB Docusate Sodium (Docusate Sodium 100 Mg Capsule) 100 mg PO BID [facility] Last Admin: 02/18/25 20:18 Dose: Not Given Documented By: CAESAR Non-Admin Reason: Patient Refused Furosemide (Furosemide 40 Mg Tablet) 80 mg PO SUTUTHSA [facility]; Protocol Last Admin: 02/19/25 09:10 Dose: 80 mg Documented By: PB Heparin Sodium (Porcine) (Heparin Sodium,Porcine 5,000 Unit/Ml Vial) 5,000 unit SUBCUT Q12H [facility] Last Admin: 02/18/25 21:44 Dose: Not Given Documented By: CAESAR Non-Admin Reason: Patient Refused Lamotrigine (Lamotrigine 100 Mg Tablet) 100 mg PO DAILY [facility] Last Admin: 02/19/25 08:52 Dose: 100 mg Documented By: PB Lidocaine (Lidocaine 4 % Patch Adh..Patch) 1 patch TRANSDERMA DAILY [facility]; Protocol Last Admin: 02/19/25 08:53 Dose: 1 patch Documented By: PB Lidocaine (Lidocaine 4 % Patch Adh..Patch) 1 patch TRANSDERMA DAILY [facility]; Protocol Last Admin: 02/19/25 08:57 Dose: 1 patch Documented By: PB Lisinopril (Lisinopril 20 Mg Tablet) 20 mg PO DAILY [facility]; Protocol Last Admin: 02/19/25 08:53 Dose: 20 mg Documented By: PB Meclizine HCl (Meclizine Hcl 25 Mg Tablet) 25 mg PO BID PRN PRN Reason: dizziness Melatonin (Melatonin 3 Mg Tablet) 6 mg PO BEDTIME PRN PRN Reason: Insomnia Last Admin: 02/18/25 20:15 Dose: 6 mg Documented By: CAESAR Metoprolol Succinate (Metoprolol Succinate Er 25 Mg Tab.Er.24h) 25 mg PO DAILY [facility]; Protocol Last Admin: 02/18/25 13:06 Dose: 25 mg Documented By: NIRAJ Multivitamins/Vitamin C (Multivitamin Tablet) 1 tab PO DAILY [facility] Last Admin: 02/19/25 08:53 Dose: 1 tab Documented By: PB Oxcarbazepine (Oxcarbazepine 300 Mg Tablet) 600 mg PO BID [facility] Last Admin: 02/19/25 08:52 Dose: 600 mg Documented By: PB Prochlorperazine Maleate (Prochlorperazine Maleate 5 Mg Tablet) 5 mg PO BID [facility] Last Admin: 02/19/25 08:52 Dose: 5 mg Documented By: PB Ropinirole HCl (Ropinirole Hcl 2 Mg Tablet) 2 mg PO BEDTIME [facility] Last Admin: 02/18/25 20:16 Dose: 2 mg Documented By: CAESAR Sodium Chloride (0.9 % Sodium Chloride Flush 3 Ml Syringe) 3 ml IVFLUSH QSHIFT [facility] Last Admin: 02/19/25 08:58 Dose: 3 ml Documented By: PB Sodium Polystyrene Sulfonate (Sodium Polystyrene Sulfon/Sorb 15 Gm/60 Ml Oral.Susp) 15 gm PO SUTUTHSA [facility] Last Admin: 02/17/25 12:40 Dose: 15 gm Documented By: MYLES Trazodone HCl (Trazodone Hcl 50 Mg Tablet) 50 mg PO BEDTIME [facility] Last Admin: 02/18/25 20:17 Dose: 50 mg Documented By: CAESAR Labs 02/17/25 05:32 02/17/25 05:32 Assessment and Plan (1) ESRD (end stage renal disease) on dialysis: Status: Acute Plan d7 for 74yo M with ESRD on HD MWF, cardiomyopathy, HFrEF, AF, HTN, MCI, bipolar depression, COPD, HLD, HTN, and RYAN on CPAP admitted for HD/placement due to FTT/frequent falls ESRD on HD - HD MWF, Nephro following, Kayexelate TuThSa AF - no AC due to increased fall risk HF with mildly reduced EF, chronic - furosemide, lisinopril, metoprolol succinate HTN - amlodipine, lisinopril, metoprolol succinate mood disorder - clonazepam, oxcarbazepine, lamotrigine, trazodone FTT/frequent falls - plan STR then LTC VTE ppx - UFH dispo - STR then LTC In my clinical judgment, the patient requires continued inpatient hospitalization for the following reasons: placement Total time managing care of this patient today: 30 minutes. Quality Stroke Does the patient have a stroke diagnosis?: No VTE Prior VTE?: No VTE Risk Level:: Medical - moderate - high VTE Device Contraindication: Treatment Not Indicated VTE Drug Contraindication: N/A - Med Ordered
[2025-02-19] MEDS: Metoprolol Succinate ER 25 MG TAB.ER.24H PO (09:15)
[2025-02-19 16:00] VITALS: BP 114/59; PULSE 61; RESP 17; TEMP 36.7; O2SAT 97
[2025-02-19 20:27] VITALS: BP 136/63; PULSE 70; RESP 16; TEMP 37; O2SAT 96
[2025-02-19 23:37] VITALS: BP 153/63; PULSE 72; RESP 18; TEMP 36.8; O2SAT 98
--- NOTE | 2025-02-20 06:01 | PC.NURSE ---
pt refused morning labs today, Dr. Sy aware.
--- NOTE | 2025-02-20 06:45 | PC.NURSE ---
Patient refusing bed alarm and refused lab draw this morning.
[2025-02-20 07:43] VITALS: BP 116/57; PULSE 73; RESP 18; TEMP 36.3; O2SAT 100
[2025-02-20] MEDS: Lidocaine 4 % Patch ADH..PATCH 1 PATCH TRANSDERMA ×2 (08:56)
[2025-02-20] MEDS: Metoprolol Succinate ER 25 MG TAB.ER.24H PO (08:57)
[2025-02-20] MEDS: 0.9 % Sodium Chloride Flush 3 ML SYRINGE IVFLUSH ×3 (08:58→23:43)
[2025-02-20 09:01] LABS: Hematocrit 31.0 % (42.0-52.0); Hemoglobin 10.6 g/dl (14.0-18.0); Mean Corpuscular HGB Conc 34.2 g/dl (31.0-36.0); Mean Corpuscular Hemoglobin 32.1 pg (27.0-33.0); Mean Corpuscular Volume 93.9 fL (80.0-98.0); NRBC Abs Auto 0.000 X10*3/uL (0.0-0.012); NRBC Pct Auto 0.0 /100WBC (0.0-0.2); Platelet Count 248 X10*3/uL (160-400); Red Blood Count 3.30 X10*6/uL (4.60-5.80); White Blood Count 5.5 X10*3/uL (4.8-10.8)
[2025-02-20 09:23] LABS: Anion Gap 22 (12-20); Blood Urea Nitrogen 51 mg/dL (9-16); Calcium 8.6 mg/dL (8.4-10.2); Carbon Dioxide 26 mmol/L (22-29); Chloride 98 mmol/L (96-108); Creatinine Clr Calc Pharmacy 7.5; Estimated Glomerular Filt Rate 7; Potassium 3.6 mmol/L (3.3-5.1); Sodium 142 mmol/L (135-145)
--- NOTE | 2025-02-20 12:08 | PM.PNNEP ---
Subjective Subjective Date of Service: 02/20/25 Interval history: seen and examined on HD no complaints Physical Exam Vital Signs: Vital Signs: Last Vital Signs Temp 97.4 F 02/20/25 07:43 Pulse 73 02/20/25 07:43 Resp 18 02/20/25 07:43 BP 116/57 L 02/20/25 07:43 Pulse Ox 100 02/20/25 07:43 O2 Del Method Room Air 02/20/25 07:43 BMI result Body Mass Index 20.9 Const: General: no acute distress Neck: Neck: Yes supple Resp: Auscultation: diminished lung sounds Cardio: Heart sounds: S1 normal heart sound present and S2 normal heart sound present GI: Palpation (GI): Soft to palpation and nontender Extrem: General: No cyanosis Objective Data Labs 02/20/25 08:25 02/20/25 08:25 Labs: Laboratory Results - last 24 hr 02/20/25 08:25 WBC 5.5 RBC 3.30 L Hgb 10.6 L Hct 31.0 L MCV 93.9 MCH 32.1 MCHC 34.2 RDW 13.6 Plt Count 248 MPV 9.0 L Absolute Nucleated RBC 0.000 Nucleated RBC % (auto) 0.0 Sodium 142 Potassium 3.6 Chloride 98 Carbon Dioxide 26 Anion Gap 22 H BUN 51 H Creatinine 7.79 H* Estim Creat Clear Calc 7.5 Estimated GFR 7 Random Glucose 105 Calcium 8.6 Procedures Date of Service Date of Service: 02/20/25 Assessment & Plan Assessment and plan (1) ESRD (end stage renal disease): Status: Acute (2) Anemia: Status: Acute Plan 74 year old patient with ESRD on HD MWF, cardiomyopathy, HFrEF, AF, HTN, MCI, bipolar depression, COPD, HLD, HTN, and RYAN on CPAP admitted for HD placement due to FTT/frequent falls usually gets HD at [facility] -W- known HFrEF nephrogenic anemia REC HD -- P binders no need for LC renal diet DC planning Time Spent With Patient Time: Total time managing care of this patient today ____ minutes. Progress Note: Quality Stroke Does the patient have a stroke diagnosis?: No
--- NOTE | 2025-02-20 13:01 | P.PNIM_ITS ---
Subjective Subjective Date of Service: 02/20/25 Interval History: esrd Review of Systems no new c/o. Physical Exam 2 Exam: Exam: Awake alert no acute distress. cvs: [id number], [id number] . res: clear to auscultation. abd: no rebound or guarding ,nt, bs present. ext pulses present , no cyanosis. neuro: nonfocal. Vital Signs: Vital Signs: Last Vital Signs Temp 97.4 F 02/20/25 07:43 Pulse 73 02/20/25 07:43 Resp 18 02/20/25 07:43 BP 116/57 L 02/20/25 07:43 Pulse Ox 100 02/20/25 07:43 O2 Del Method Room Air 02/20/25 07:43 BMI result Body Mass Index 20.9 Objective Data Active Medications Acetaminophen (Acetaminophen 325 Mg Tablet) 650 mg PO Q6H PRN PRN Reason: Pain, Mild 1-3,fever,headache Last Admin: 02/19/25 20:30 Dose: 650 mg Documented By: OLY Albuterol Sulfate (Albuterol Sulfate 90 Mcg 8 Gm Inhaler) 2 puff INHALE RQ6H PRN PRN Reason: Shortness Of Breath Or Wheezing Amlodipine Besylate (Amlodipine Besylate 5 Mg Tablet) 5 mg PO DAILY [facility]; Protocol Last Admin: 02/20/25 08:58 Dose: 5 mg Documented By: MERYL Ascorbic Acid (Ascorbic Acid 500 Mg Tablet) 1,000 mg PO DAILY [facility] Last Admin: 02/20/25 08:58 Dose: 1,000 mg Documented By: MERYL Calcium Carbonate (Calcium Carbonate 750 Mg Tab.Chew) 750 mg PO Q4H PRN PRN Reason: Heartburn Clonazepam (Clonazepam 1 Mg Tablet) 1 mg PO BEDTIME PRN PRN Reason: Anxiety Last Admin: 02/18/25 20:16 Dose: 1 mg Documented By: CAESAR Cyanocobalamin (Cyanocobalamin (Vitamin B-12) 1,000 Mcg Tablet) 1,000 mcg PO DAILY [facility] Last Admin: 02/20/25 08:57 Dose: 1,000 mcg Documented By: MERYL Docusate Sodium (Docusate Sodium 100 Mg Capsule) 100 mg PO BID [facility] Last Admin: 02/20/25 08:58 Dose: Not Given Documented By: MERYL Non-Admin Reason: Patient Refused Furosemide (Furosemide 40 Mg Tablet) 80 mg PO SUTUTHSA [facility]; Protocol Last Admin: 02/19/25 09:10 Dose: 80 mg Documented By: PB Heparin Sodium (Porcine) (Heparin Sodium,Porcine 5,000 Unit/Ml Vial) 5,000 unit SUBCUT Q12H [facility] Last Admin: 02/20/25 08:57 Dose: Not Given Documented By: MERYL Non-Admin Reason: Patient Refused Lamotrigine (Lamotrigine 100 Mg Tablet) 100 mg PO DAILY [facility] Last Admin: 02/20/25 08:58 Dose: 100 mg Documented By: MERYL Lidocaine (Lidocaine 4 % Patch Adh..Patch) 1 patch TRANSDERMA DAILY [facility]; Protocol Last Admin: 02/20/25 08:56 Dose: 1 patch Documented By: MERYL Lidocaine (Lidocaine 4 % Patch Adh..Patch) 1 patch TRANSDERMA DAILY [facility]; Protocol Last Admin: 02/20/25 08:56 Dose: 1 patch Documented By: MERYL Lisinopril (Lisinopril 20 Mg Tablet) 20 mg PO DAILY [facility]; Protocol Last Admin: 02/20/25 08:58 Dose: 20 mg Documented By: MERYL Meclizine HCl (Meclizine Hcl 25 Mg Tablet) 25 mg PO BID PRN PRN Reason: dizziness Melatonin (Melatonin 3 Mg Tablet) 6 mg PO BEDTIME PRN PRN Reason: Insomnia Last Admin: 02/18/25 20:15 Dose: 6 mg Documented By: CAESAR Metoprolol Succinate (Metoprolol Succinate Er 25 Mg Tab.Er.24h) 25 mg PO DAILY [facility]; Protocol Last Admin: 02/20/25 08:57 Dose: 25 mg Documented By: MERYL Multivitamins/Vitamin C (Multivitamin Tablet) 1 tab PO DAILY [facility] Last Admin: 02/20/25 08:58 Dose: 1 tab Documented By: MERYL Oxcarbazepine (Oxcarbazepine 300 Mg Tablet) 600 mg PO BID [facility] Last Admin: 02/20/25 08:57 Dose: 600 mg Documented By: MERYL Prochlorperazine Maleate (Prochlorperazine Maleate 5 Mg Tablet) 5 mg PO BID [facility] Last Admin: 02/20/25 08:58 Dose: 5 mg Documented By: MERYL Ropinirole HCl (Ropinirole Hcl 2 Mg Tablet) 2 mg PO BEDTIME [facility] Last Admin: 02/19/25 20:30 Dose: 2 mg Documented By: OLY Sodium Chloride (0.9 % Sodium Chloride Flush 3 Ml Syringe) 3 ml IVFLUSH QSHIFT [facility] Last Admin: 02/20/25 08:58 Dose: 3 ml Documented By: MERYL Sodium Polystyrene Sulfonate (Sodium Polystyrene Sulfon/Sorb 15 Gm/60 Ml Oral.Susp) 15 gm PO SUTUTHSA [facility] Last Admin: 02/19/25 10:16 Dose: 15 gm Documented By: LEFEBNEISHA Trazodone HCl (Trazodone Hcl 50 Mg Tablet) 50 mg PO BEDTIME [facility] Last Admin: 02/19/25 20:30 Dose: 50 mg Documented By: OLY Labs 02/20/25 08:25 02/20/25 08:25 Labs: Laboratory Results - last 24 hr 02/20/25 08:25 MCV 93.9 MCH 32.1 MCHC 34.2 RDW 13.6 Plt Count 248 MPV 9.0 L Absolute Nucleated RBC 0.000 Nucleated RBC % (auto) 0.0 Anion Gap 22 H Estim Creat Clear Calc 7.5 Estimated GFR 7 Random Glucose 105 Calcium 8.6 Assessment and Plan (1) ESRD (end stage renal disease) on dialysis: Status: Acute Plan d7 for 74yo M with ESRD on HD MWF, cardiomyopathy, HFrEF, AF, HTN, MCI, bipolar depression, COPD, HLD, HTN, and RYAN on CPAP admitted for HD/placement due to FTT/frequent falls ESRD on HD - HD MWF, Nephro following, Kayexelate TuThSa AF - no AC due to increased fall risk HF with mildly reduced EF, chronic - furosemide, lisinopril, metoprolol succinate HTN - amlodipine, lisinopril, metoprolol succinate mood disorder - clonazepam, oxcarbazepine, lamotrigine, trazodone FTT/frequent falls - plan STR then LTC VTE ppx - UFH dispo - STR then LTC In my clinical judgment, the patient requires continued inpatient hospitalization for the following reasons: placement Total time managing care of this patient today: 30 minutes. Quality Stroke Does the patient have a stroke diagnosis?: No VTE Prior VTE?: No VTE Risk Level:: Medical - moderate - high VTE Device Contraindication: Treatment Not Indicated VTE Drug Contraindication: N/A - Med Ordered
--- NOTE | 2025-02-20 15:48 | MHC.CM.PN ---
Addendum entered by Kirsty Gandara 02/20/25 16:08: PER PROVIDER, PT IS MEDICALLY CLEARED. Original Note: EMR REVIEWED. PT HAS BEEN DC FROM P.T. WITH NO SKILLED NEEDS. PT IS ABLE TO AMBULATE WITH [facility] AND WALKER. PT/POA UPDATED AND POA TO COME IN TO DISCUSS DC PLANNING. CM CONTINUES TO FOLLOW.
[2025-02-20 16:00] VITALS: BP 92/50; PULSE 80; RESP 17; TEMP 36.3; O2SAT 96
[2025-02-20 19:46] VITALS: BP 93/50; PULSE 73; RESP 18; TEMP 36.4; O2SAT 97
[2025-02-20 23:55] VITALS: BP 97/60; PULSE 98; RESP 16; TEMP 36.3; O2SAT 99
--- NOTE | 2025-02-21 03:05 | PC.NURSE ---
Patient continues to refuse bed alarm, chair alarm for high fall risk precautions. Patient alert and oriented. Encouraged patient to utilize callbell when necessary.
[2025-02-21 07:42] VITALS: BP 100/55; PULSE 77; RESP 17; TEMP 36.4; O2SAT 97
[2025-02-21] MEDS: Lidocaine 4 % Patch ADH..PATCH 1 PATCH TRANSDERMA ×2 (08:23)
[2025-02-21] MEDS: 0.9 % Sodium Chloride Flush 3 ML SYRINGE IVFLUSH (08:49)
--- NOTE | 2025-02-21 11:35 | P.PNNP_ITS ---
Subjective Subjective Date of Service: 02/21/25 Interval history: seen and examined d/w watch casereducation and development manager Exam 2 Vital Signs: Vital Signs: Last Vital Signs Temp 97.6 F 02/21/25 07:42 Pulse 77 02/21/25 07:42 Resp 17 02/21/25 07:42 BP 100/55 L 02/21/25 07:42 Pulse Ox 97 02/21/25 07:42 O2 Del Method Room Air 02/21/25 07:42 BMI result Body Mass Index 20.9 Const: General: no acute distress Neck: Neck: Yes supple Resp: Auscultation: diminished lung sounds Cardio: Heart sounds: S1 normal heart sound present and S2 normal heart sound present GI: Palpation (GI): Soft to palpation and nontender Extrem: General: No cyanosis Objective Data Labs 02/20/25 08:25 02/20/25 08:25 Procedures Date of Service Date of Service: 02/21/25 Assessment & Plan Assessment and plan (1) ESRD (end stage renal disease) on dialysis: Status: Acute Plan 74 year old patient with ESRD on HD MWF, cardiomyopathy, HFrEF, AF, HTN, MCI, bipolar depression, COPD, HLD, HTN, and RYAN on CPAP admitted for HD placement due to FTT/frequent falls usually gets HD at [facility] -- known HFrEF nephrogenic anemia REC HD -- P binders no need for LC renal diet patient going to his ex house in [place] will arrange for o/p HD Time Spent With Patient Time: Total time managing care of this patient today ____ minutes. Progress Note: Quality Stroke Does the patient have a stroke diagnosis?: No
--- NOTE | 2025-02-21 11:36 | MHC.CM.PN ---
Addendum entered by Shireen Nichols 02/21/25 13:01: RIGO JAY [phone], NOTIFIED OF PTS DC DCS FAXED TO THEM AT [phone] Addendum entered by Shireen Nichols 02/21/25 11:39: CM RETURNED TO PTS ROOM AT PT REQUEST, ALONG WITH ANOTHER CM WHO WAS COVERING PT YESTERDAY PT STATES I DID NOT WANT ANYTHING, I JUST WANTED TO MAKE YOU WALK BACK DOWN HERE AGAIN CM ATTEMPTED TO REVIEW PTS OPTIONS FOR DC, PT STOPPED CM AND STATED HE WOULD NOT DISCUSS IT CM INFORMED HIM IF HE WERE UNWILLING TO PARTICIPATE, CM WOULD HAVE TO DC HIM TO A [facility] ANYTHING ELSE WOULD REQUIRE HIS ASSISTANCE PT STATED GET OUT PTS HCP, ZACH, CALLED CM AND INFORMED HER SHE 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 AT 1230 HOURS PT IS FULLY ALERT AND ORIENTED, WALKING INDEPENDENTLY IN ROOM, REFUSING FALL PRECAUTIONS OR 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
--- NOTE | 2025-02-21 12:14 | P.DS_ITS ---
DS: Providers Provider Date of Service: 02/21/25 Date of admission: 02/06/25 07:22 Date of discharge: 02/21/25 Primary care physician: Gerald Davis MD Consults: 02/05/25 20:35 Consult to Case Management Stat Comment: 02/06/25 10:12 Consult to Nephrology Routine Consulting Provider: Justin Sweet Reason for consultation: ESRD Attending physician on discharge: Erica Thapa Discharging clinician: Erica Thapa DS: Diagnosis Discharge Diagnosis (1) ESRD (end stage renal disease) on dialysis: Status: Acute DS: Summary Hospital Course Hospital Course: Hospital course:74 year old male with PMH ESRD on dialysis, HFrEF of 45-50%, HTN, atrial flutter not on anticoagulation, RYAN on CPAP, hyperlipidemia, depression and bipolar disorder, anxiety Chronic bilateral knee pain and osteoarthritis presented to the ED after a fall at home. She was initially brought to the hospital after he was found on the ground by his ex- whom he lives with. He was discharged to [facility] for rehab on 01/10/2025 and discharged home Tuesday02/03/2025, he sustained another fall on Tuesday02/04/2025, and was unable to get up and EMS was called he was brought back here for deconditioning and weakness, failure to thrive at home. On admission his workup was unremarkable. He was recently treated for suspected pneumonia with 14 days of antibiotics at rehab. He reports bilateral knee pain, arthitis, and weakness. He is seen by [facility] and most recent appointment which he was due to have cortisone injections was canceled due to him being in the hospital. Patient is being followed at home by incident response specialist who visits him regularly. His electrolytes were without derangement. He does not appear ill. He will be admitted for dialysis treatment and case management. Hospital course: 74yo M with ESRD on HD MWF, cardiomyopathy, HFrEF, AF, HTN, MCI, bipolar depression, COPD, HLD, HTN, and RYAN on CPAP admitted for HD/placement due to FTT/frequent falls: ESRD on HD- HD MWF, Nephro following, Kayexelate TuThSa. HF with mildly reduced EF, chronic- furosemide, lisinopril, metoprolol succinate. HTN: blood pressure flactuates - amlodipine adjusted 2.5 mg po qd, lisinopril, metoprolol succinate. mood disorder- clonazepam, oxcarbazepine, lamotrigine, trazodone. plan: falls - seen by PT- patient ambulation improving significantly.ambulating fine per staff and PT . Initially also was question of failure to thrive but patient p.o. intake improved significantly. Tolerating diet. htn -blood pressure flactautes ,amlodipine adjusted to 2.5 mg qd ,moniter blood pressure at home . further management outpatient with pcp. Above management discussed with the patient/hcp in detail length she understand and in agreement with the above plan, time spent 50 minutes.all questions answered. Time Attestation Total time managing care of this patient today: 50 mintues. Discharge Coordination Time (in mins): 50 min Quality: Safe Use of Opioids Does Pt have an Active Cancer Diagnosis on the Problem List?: No Quality: Stroke Does the patient have a stroke diagnosis?: No Physical Exam Exam: Exam: Awake alert no acute distress. cvs: rrr, [id number] . res: clear to auscultation. abd: no rebound or guarding ,nt, bs present. ext pulses present , no cyanosis. neuro: nonfocal. Vital Signs: Vital Signs: Last Vital Signs Temp 97.6 F 02/21/25 07:42 Pulse 77 02/21/25 07:42 Resp 17 02/21/25 07:42 BP 100/55 L 02/21/25 07:42 Pulse Ox 97 02/21/25 07:42 O2 Del Method Room Air 02/21/25 07:42 BMI result Body Mass Index 20.9 DS: Data Data Completed and Pending Completed studies during hospitalization [Text1]: Procedures Assistance with Respiratory Ventilation, Less than 24 Consecutive Hours, Continuous Positive Airway Pressure (07/31/23) Performance of Urinary Filtration, Intermittent, Less than 6 Hours Per Day (01/06/25) Imaging Chest x-ray: Radiologist's impression: ITS Impressions Chest X-Ray 02/06/25 16:54 IMPRESSION: No acute disease. Pulmonary artery enlargement suggests pulmonary arterial hypertension. Discharge Plan Discharge Anticipated Discharge Date/Time: 02/21/25 11:57 Patient Disposition: Home, Self-Care Discharge Diagnosis: esrd Referrals: Gerald Davis MD [Primary Care Provider, Internal Medicine] - 1 Week Discharge Medications: New (DME) blood pressure monitor [Blood Pressure Kit] Kit See Rx Instructions .Route Qty: 1 0RF Rx Instructions: As directed Continued trazodone 50 mg tablet 50 mg PO BEDTIME sodium polystyrene sulfonate Powder 15 g PO SUTUTHSA Rx Instructions: On NON -Dialysis days clonazepam 1 mg tablet 0.5 mg PO BID@0900,1200 cyanocobalamin (vitamin B-12) 1,000 mcg Tablet 1,000 mcg PO DAILY ascorbic acid (vitamin C) 500 mg Tablet 1,000 mg PO DAILY furosemide 80 mg tablet 80 mg PO SUTUTHSA prochlorperazine maleate 5 mg tablet 5 mg PO BID albuterol sulfate [Ventolin HFA] 90 mcg/actuation HFA aerosol inhaler 2 puff INHALATION Q6H PRN (Reason: Shortness Of Breath Or Wheezing) vitamin B complex Tablet 1 tab PO DAILY meclizine 25 mg tablet 25 mg PO BID PRN (Reason: dizziness) lamotrigine [Lamictal] 100 mg Tablet 100 mg PO DAILY clonazepam 1 mg tablet 1 mg PO BEDTIME ropinirole 2 mg tablet 2 mg PO BEDTIME oxcarbazepine 600 mg tablet 600 mg PO BID acetaminophen 325 mg Tablet 325 mg PO QID PRN (Reason: Pain, Mild) lidocaine 4 % Adhesive Patch,Medicated 1 patch TOPICAL DAILY PRN (Reason: Pain) lisinopril 20 mg tablet 20 mg PO DAILY Qty: 90 3RF metoprolol succinate 25 mg tablet extended release 24 hr 25 mg PO DAILY Qty: 90 3RF Changed amlodipine 5 mg tablet 2.5 mg PO DAILY Qty: 30 0RF Discharge Orders: Discharge Order (Routine); Ordered 02/21/25 Ordered By: Erica Thapa Diet: Advance to usual diet Activity on Discharge: As tolerated Stand Alone Forms: Patient Portal Discharge page Print Language: Spanish Other Ambulatory Orders: Basic Metabolic Panel (Routine) Timeframe: 1 Week Facility: [facility] - Location: Laboratory Ordered By: Erica Thapa Care Plan Goals: falls - seen by PT- patient ambulation improving significantly. Going home. Initially also was question of failure to thrive but patient p.o. intake improved significantly. Tolerating diet. htn -blood pressure flactautes ,amlodipine adjusted to 2.5 mg qd ,moniter blood pressure at home . further management outpatient with pcp. Health Concerns: As above. Plan of Treatment: As above. Assessment: As above. Patient Instructions: Fall Prevention (DC) Discharge Date/Time: 02/21/25 13:03
== END 2025-02-21 13:03 | disposition home or self-care (01) ==
LOC: HO.ED 02-06 07:24 → HO.EDOVER 02-06 07:27 → HO.S3 02-06 15:51
PROVIDERS: Emergency Medicine; Internal Medicine; Nurse Practitioner Family; Admitting Provider Hospitalist; Emergency Provider Emergency Medicine; PCP Family Medicine; Visit Provider Internal Medicine
DX: I13.2 Hypertensive heart and chronic kidney disease with heart failure and with stage 5 chronic kidney disease, or end stage renal disease (principal); I50.20 Unspecified systolic (congestive) heart failure; N18.6 End stage renal disease; D63.1 Anemia in chronic kidney disease; J44.9 Chronic obstructive pulmonary disease, unspecified; N25.0 Renal osteodystrophy; R29.6 Repeated falls; M17.0 Bilateral primary osteoarthritis of knee; G47.33 Obstructive sleep apnea (adult) (pediatric); I48.92 Unspecified atrial flutter; Z99.2 Dependence on renal dialysis; Z68.20 Body mass index [BMI] 20.0-20.9, adult; Z99.89 Dependence on other enabling machines and devices
CPT/HCPCS: 36415; 71046; 80048; 80053; 82947; 83735; 84484; 85025; 85027; 90999; 93308; 97116; 97162; 97530; 99221; 99285; J1644

== ENCOUNTER 2025-02-06 07:22 | Outpatient (BNV) | payer OTHER, MEDICARE, SELFPAY | END 2025-02-06 16:54 | PROVIDERS: Admitting Provider Hospitalist; Emergency Provider Emergency Medicine; PCP Family Medicine; Visit Provider Radiology Diagnostic Radiology | DX: R05.9 Cough, unspecified (principal); R53.1 Weakness | CPT/HCPCS: 71046 ==

== ENCOUNTER → 2025-02-06 07:22 | Outpatient (BNV) | payer OTHER, MEDICARE, SELFPAY | PROVIDERS: Admitting Provider Hospitalist; Emergency Provider Emergency Medicine; PCP Family Medicine; Visit Provider Nurse Practitioner Family | DX: N18.6 End stage renal disease (principal); Z99.2 Dependence on renal dialysis | CPT/HCPCS: 99223; 99231; 99232; 99499 ==